=== PATIENT | female | born 1960 | race African-American/Black ===

== ENCOUNTER 2017-06-07 05:34 | Inpatient (IN) | payer MEDICAID, SELFPAY ==
[2017-06-07] VITALS (24 sets, daily range): BP systolic 69–128; BP diastolic 44–59; PULSE 65–82; RESP 16–24; TEMP 36.8–37.6; O2SAT 89–99; BMI 40.8; BMI 38.6; BMI 38.7
--- NOTE | 2017-06-07 05:52 | RAD_ITS ---
STUDY: X-RAY CHEST REASON FOR EXAM: Female, 56 years old. Shortness of breath TECHNIQUE: 1 view COMPARISON: March 20, 2017 FINDINGS: There is mild cardiomegaly. There is no pneumonia or failure. Median sternotomy wires are in place. No pleural effusions. Normal visualized thoracic spine. Normal visualized ribs, clavicles, and shoulders. Plates and screws are seen in the lower cervical spine. There is no demonstrated abnormality of the visualized soft tissue structures of the upper abdomen. RAD/Chest 1 View (Portable) IMPRESSION: Moderate cardiomegaly. No pneumonia. No failure. No pleural effusions. Electronically Signed: Dimitrios Alexis, at 6:30 EST Tel , Service support ,
--- NOTE | 2017-06-07 05:52 | EKG12_ITS ---
Test Reason : SOB Blood Pressure : / mmHG Vent. Rate : 066 BPM Atrial Rate : 066 BPM P-R Int : 164 ms QRS Dur : 090 ms QT Int : 450 ms P-R-T Axes : 043 -38 149 degrees QTc Int : 471 ms Normal sinus rhythm Left axis deviation Marked ST abnormality, possible lateral subendocardial injury Poor R wave progression Abnormal ECG Confirmed by KELVIN ZARAGOZA, JOCELYNE ([id number]), sound editor MADDY STERLING ([id number]) on 06/11/2017 1:22:49 PM Referred By: RAJWINDER Confirmed By:JOCELYNE WARREN MD
[2017-06-07] MEDS: Ipratropium/Albuterol Sulfate 3 ML AMPUL.NEB INHALATION ×4 (06:04→22:55)
[2017-06-07 06:06] LABS: Hematocrit 27.2 % (37-47); Hemoglobin 8.7 g/dl (12.0-15.0); Mean Corpuscular Hgb 31.1 pg (27.0-32.0); Mean Corpuscular Volume 97.1 fL (81-99); Mean Platelet Vol. 9.6 fl (6.2-12.0); Platelet Count 332 K/mm3 (150-450); RBC Distribution Width CV 16.9 % (11.6-14.6)
[2017-06-07 06:09] LABS: Scan Indicated on CBC? Y/N NO
[2017-06-07 06:28] LABS: Anion Gap 10 (5-15); BUN 44 mg/dL (7-18); BUN/Creat Ratio 9.8 RATIO (10-20); Calcium,Total 8.5 mg/dL (8.5-10.1); Chloride 93 mmol/L (98-107); Creatinine, Serum 4.49 mg/dL (0.55-1.02); EST Glomerular Filtration Rate 11 mL/min (>60); Est Glom Filt Rate - Afr Amer 13 mL/min (>60); Estimated Creatinine Clearance 10.43 ml/min; Glucose 335 mg/dL (74-106); Potassium 4.6 mmol/L (3.5-5.1); Sodium Level 132 mmol/L (136-145)
[2017-06-07 07:00] LABS: Lactic Acid 1.6 mmol/L (0.4-2.0)
--- NOTE | 2017-06-07 07:21 | ED.VISSUMM ---
- ER Visit Summary Date of Service: 06/07/17 Chief Complaint: Shortness of breath History of Present Illness: The patient is a 56 F with multiple medical problems including history of coronary artery disease and CABG, COPD, end-stage renal disease on hemodialysis, diabetes, hypertension, hyperlipidemia. She states that she has felt short of breath since yesterday. She has had a URI-like illness for the past week with congestion and rhinorrhea and cough. She denies any sputum. She denies any fevers. She began to feel more short of breath yesterday. She reports increased wheezing. She is currently on antibiotics but is not currently on steroids. She missed dialysis on Sunday but did go the next day, yesterday. She will be due again today. She does note some weight gain and some mild edema. She denies any vomiting or diarrhea. Physical Examination: Initial blood pressure 69/48 afebrile heart rate 67 respiratory rate 24 pulse ox is 98% on nasal cannula Moist mucous membranes Heart is regular rate and rhythm Patient has diminished air exchange but I do not appreciate rales or wheezing she is not in distress Extremities are nontender trace edema Alert Test Results: EKG shows sinus rhythm at rate of 66 there are T-wave inversions in [address] depression. This is more pronounced than prior EKG. Laboratory studies notable for white blood cell count 15.0 and hemoglobin 8.7. Lactic acid normal. Troponin elevated at 0.36. Although she is on dialysis previously her troponin was negative. Creatinine is 4.49 and BUN 44 consistent with her history of end-stage renal disease. Chest x-ray shows cardiomegaly but no acute process no focal infiltrate no effusion. Emergency Department Course and Treatment: She was given albuterol Atrovent aerosols and placed on nasal cannula. Her blood pressure has improved. On most recent reevaluation her mean arterial pressure is greater than 65. Given that her chest x-ray does not show any overt heart failure and IV fluid boluses been ordered. Given her report of URI-like illness cough and wheezing I do believe there is a component of COPD exacerbation. She was given IV Solu-Medrol. She will need admitted. Treatment Plan: [] Disposition: Admit Impression: COPD exacerbation End-stage renal disease Indeterminate troponin This note was generated with Meraki dictation software. It may contain incorrect words, spelling, and punctuation that were not noted in review of the chart prior to signing ED Disposition - Plan for ED Patient: Chief Complaint: Shortness of Breath Referrals: Brayden King Chi, MD [Primary Care Provider] -
--- NOTE | 2017-06-07 07:26 | ED.DCSUM_ITS ---
- ER Visit Summary Date of Service: 06/07/17 Chief Complaint: Shortness of breath History of Present Illness: The patient is a 56 F with multiple medical problems including history of coronary artery disease and CABG, COPD, end-stage renal disease on hemodialysis, diabetes, hypertension, hyperlipidemia. She states that she has felt short of breath since yesterday. She has had a URI- like illness for the past week with congestion and rhinorrhea and cough. She denies any sputum. She denies any fevers. She began to feel more short of breath yesterday. She reports increased wheezing. She is currently on antibiotics but is not currently on steroids. She missed dialysis on Sunday but did go the next day, yesterday. She will be due again today. She does note some weight gain and some mild edema. She denies any vomiting or diarrhea. Physical Examination: Initial blood pressure 69/48 afebrile heart rate 67 respiratory rate 24 pulse ox is 98% on nasal cannula Moist mucous membranes Heart is regular rate and rhythm Patient has diminished air exchange but I do not appreciate rales or wheezing she is not in distress Extremities are nontender trace edema Alert Test Results: EKG shows sinus rhythm at rate of 66 there are T-wave inversions in [address] depression. This is more pronounced than prior EKG. Laboratory studies notable for white blood cell count 15.0 and hemoglobin 8.7. Lactic acid normal. Troponin elevated at 0.36. Although she is on dialysis previously her troponin was negative. Creatinine is 4.49 and BUN 44 consistent with her history of end-stage renal disease. Chest x-ray shows cardiomegaly but no acute process no focal infiltrate no effusion. Emergency Department Course and Treatment: She was given albuterol Atrovent aerosols and placed on nasal cannula. Her blood pressure has improved. On most recent reevaluation her mean arterial pressure is greater than 65. Given that her chest x-ray does not show any overt heart failure and IV fluid boluses been ordered. Given her report of URI-like illness cough and wheezing I do believe there is a component of COPD exacerbation. She was given IV Solu- Medrol. She will need admitted. Treatment Plan: [] Disposition: Admit Impression: COPD exacerbation End-stage renal disease Indeterminate troponin This note was generated with Kloud[employer] dictation software. It may contain incorrect words, spelling, and punctuation that were not noted in review of the chart prior to signing ED Disposition - Plan for ED Patient: Chief Complaint: Shortness of Breath Referrals: Brayden King Chi, MD [Primary Care Provider] -
[2017-06-07] MEDS: MethylPREDNISolone 125 MG/2 ML Vial IV (07:28)
[2017-06-07] MEDS: Citalopram 20 MG Tablet PO (10:47)
[2017-06-07] MEDS: Carvedilol 25 MG Tablet PO ×2 (10:47→21:52)
[2017-06-07] MEDS: Aspirin 81 MG TAB.CHEW PO (10:47)
[2017-06-07] MEDS: Calcium Acetate 667 MG Capsule PO ×2 (10:47→17:22)
[2017-06-07] MEDS: Famotidine 20 MG Tablet PO (10:47)
[2017-06-07] MEDS: guaiFENesin 600 MG Tablet PO ×2 (10:47→21:52)
[2017-06-07] MEDS: Calcitriol 0.25 MCG Capsule 0.5 MCG PO (10:48)
[2017-06-07] MEDS: Pyridoxine HCl 100 MG Tablet PO (10:48)
[2017-06-07] MEDS: Heparin Injection 5,000 UNITS/ML Syringe 5000 UNITS SC (10:48)
[2017-06-07] MEDS: Ranolazine 500 MG Tablet PO ×2 (10:48→21:52)
[2017-06-07] MEDS: Clopidogrel Bisulfate 75 MG Tablet PO (10:48)
--- NOTE | 2017-06-07 10:51 | CON.PCM_ITS ---
Problem List (1) COPD (chronic obstructive pulmonary disease) Status: Chronic Qualifiers: COPD type: COPD with acute exacerbation Qualified Code(s): J44.1 - Chronic obstructive pulmonary disease with (acute) exacerbation (2) History of coronary artery bypass graft Status: Resolved (3) AV fistula Status: Chronic (4) Morbid obesity Status: Chronic (5) Diabetes mellitus type 2 in obese Status: Chronic (6) Anemia in chronic renal disease Status: Chronic (7) End-stage renal disease on hemodialysis Status: Chronic (8) Diastolic congestive heart failure Status: Chronic (9) History of coronary artery bypass graft x 3 Status: Chronic (10) Coronary artery disease Status: Chronic Comment: CT Surgery: 06/29/2014: [facility]: KINCAID to the LAD; SVG to the LCx system; SVG to the RCA system (11) Hypertension Status: Chronic (12) HLD (hyperlipidemia) Status: Chronic (13) CLAUDIO (obstructive sleep apnea) Status: Chronic (14) Secondary hyperparathyroidism of renal origin Status: Chronic (15) Glaucoma Status: Chronic Reason for Consult Date of Consultation: 06/07/17 Reason for Consultation: COPD History of Present Illness: The patient is a 56 year old F with a complicated past medical history who presented to the ED on 06/07/17 complaints of shortness of breath since yesterday. About a week ago, patient developed upper respiratory symptoms with cough, congestion, rhinorrhea, and wheezing. She went to her primary care physician and was placed on an antibiotic and steroid taper with improvement in her symptoms. Patient also endorses increased lower extremity edema and mild increase in weight. She denied any sputum production, hemoptysis, chest pain, dizziness, or syncope. She endorses chills and wheezing intermittently over the last few days. Patient reports she has been on HD since January 2017 with a schedule. She missed her treatment on Sunday secondary to illness/ weakness but went on Sunday. She is due for another treatment today. Initial vital signs showed blood pressure of 69/48, pulse 67, RR 24, afebrile at 98.8?F, and hypoxic at 89% on room air. The patient was placed on 3 L of oxygen with saturation improving to 98%. EKG showed sinus rhythm with a rate of 66 bpm, T-wave inversion and ST depression that appeared more pronounced than prior comparison. Troponin elevated at 0.62. Denies current chest discomfort. Her chest x-ray showed moderate cardiomegaly, no evidence of pneumonia or heart failure. No pleural effusions were present. Blood work showed leukocytosis of 15,000, stable hemoglobin of 8.7. Chemistry remarkable for sodium of 132 and chloride of 93, BUN was 44 and creatinine 4.49. Glucose was elevated at 335. Lactate normal. Patient was given aerosols and IV fluid bolus for hypotension. Her blood pressure improved. She was also given IV Solu -Medrol and admitted to the progressive care unit for further evaluation and management of presumed COPD exacerbation. Respiratory panel is pending. Patient has been weaned to 1-2 L per nasal cannula and reports significant improvement in her overall breathing and dyspnea. Patient is a former smoker with a 10-pk-year history and quit in 2014. Patient previously followed with Dr. Partida for her COPD and sleep apnea, but has not seen him in a few years. She previously wore CPAP but quit using it about a year ago for no good reason. She was having leaking issues previously but was switched to a nasal mask and reported improvement in her symptoms. Patient denies any previous TB or asbestos exposures. She has never required home oxygen supplementation. Her baseline home inhaler regimen includes as needed albuterol nebulizers and MDI when she is out of the house. She uses the nebulizers routinely when she has an acute illness, otherwise does not utilize. She is not on any other inhalers for her COPD. The patient follows with Dr. Huang for her cardiac issues, she believes her last cardiac catheterization was in 2014. She seems to be a poor historian. Past Medical History Past Medical History (Chronic Problems): Chronic Problems (Last Reviewed 05/14/17 @ 14:02 by Carmen Mckoy) angioplasty of arteriovenous fistula (Chronic ~01/2017) Encounter for long-term (current) use of other medications (Chronic) Abnormal stress test (Chronic) AV fistula (Chronic) Morbid obesity (Chronic) Diabetes mellitus type 2 in obese (Chronic) Anemia in chronic renal disease (Chronic) End-stage renal disease on hemodialysis (Chronic) Diastolic congestive heart failure (Chronic) History of coronary artery bypass graft x 3 (Chronic) Coronary artery disease (Chronic) CT Surgery: 06/29/2014: [facility]: KINCAID to the LAD; SVG to the LCx system; SVG to the RCA system Hypertension (Chronic) HLD (hyperlipidemia) (Chronic) COPD (chronic obstructive pulmonary disease) (Chronic) CLAUDIO (obstructive sleep apnea) (Chronic) Hypokalemia (Chronic) Secondary hyperparathyroidism of renal origin (Chronic) Glaucoma (Chronic) Allergies lisinopril Allergy (Verified 06/07/17 05:35) Unknown ranitidine HCl [From Zantac] Allergy (Verified 06/07/17 05:35) Hives azithromycin Adverse Reaction (Verified 06/07/17 05:35) Nausea/Vom/Diarrhea Home Medications: Ambulatory Orders Medication Instructions Recorded Albuterol Aerosols [Ventolin 2.5 mg INHALATION Q4H PRN PRN 06/07/17 Aerosols] Amlodipine [Norvasc] 10 mg PO DAILY 06/07/17 Aspirin [Aspirin, Baby] 81 mg PO DAILY@0800 06/07/17 Atorvastatin Calcium [Lipitor] 80 mg PO QHS 06/07/17 Atropine Sulfate in 0.9% NaCl 1 drop OP BID 06/07/17 [Atropine 0.01%-Ns Eye Drops] Brimonidine Tartrate 0.2% 1 drop RIGHT EYE TID 06/07/17 [Brimonidine 0.2% 5Ml Bottle] Calcitriol [Rocaltrol] 0.5 mcg PO DAILY 06/07/17 Calcium Acetate 667 mg PO TIDCM 06/07/17 Carvedilol [Coreg] 25 mg PO BID 06/07/17 Citalopram Hydrobromide [Celexa] 20 mg PO DAILY 06/07/17 Clopidogrel Bisulfate [Plavix] 75 mg PO DAILY 06/07/17 Ergocalciferol [Vitamin D] 50,000 unit PO QWEEK 06/07/17 Famotidine [Pepcid] 40 mg PO DAILY 06/07/17 Furosemide [Lasix] 80 mg PO DAILY 06/07/17 Gabapentin [Neurontin] 300 mg PO QHS 06/07/17 Insulin Glargine,Hum.rec.anlog 52 unit SQ DAILY 06/07/17 [Toujohn Solostar] Isosorbide Mononitrate [Isosorbide 60 mg PO BID 06/07/17 Mononitrate ER] Losartan Potassium [Cozaar] 50 mg PO DAILY 06/07/17 Pyridoxine HCl (Vitamin B6) [B-6] 100 mg PO DAILY 06/07/17 Ranolazine [Ranexa] 500 mg PO BID 06/07/17 Sennosides [Senna] 8.6 mg PO QHS PRN 06/07/17 Timolol Maleate [Timoptic-XE 0.5%] 1 drop RIGHT EYE TID 06/07/17 Vitamin B Complex/Folic Acid 0.4 mg PO DAILY 06/07/17 [B-Complex Tablet] Surgical History: angioplasty, cataract, coronary bypass surgery - x3v, hysterectomy, - - AVF placement, back surgery AGRICULTURAL ENGINEER History: No pertinent AGRICULTURAL ENGINEER history Lives: With Family Smoking Status: Former smoker Alcohol: None Drugs: None - *Family History Paternal History Items: Cancer - prostate, Heart Disease, Hypertension Sibling History Items: Diabetes Maternal History Items: Hypertension Review of Systems Constitutional: Reports: Chills, Weakness, Weight Change - mild increase, Fatigue. Denies: Anorexia, Fever, Night Sweats, Malaise Eyes: Reports: - - blind left eye. Denies: Vision Change HEENT: Reports: Post Nasal Drip. Denies: Difficulty Swallowing, Dysphasia, Head Aches, Nasal Congestion, Sinus Congestion, Sinus Drainage, Sore Throat Cardiovascular: Reports: Edema - mild increase LE, Orthopnea. Denies: Chest Pain, Chest Pressure, Chest Tightness, Light Headedness, Palpitations, Paroxysmal Noc. Dyspnea, Syncope Respiratory: Reports: Cough, Shortness of breath upon exertion, Wheezing. Denies: Hemoptysis, Sputum production Gastrointestinal: Reports: Nausea. Denies: Abdominal Pain, Constipation, Diarrhea, Dyspepsia, Hematemesis, Hematochezia, Melena, Vomiting Genitourinary: Denies: Dysuria, Hematuria, Nocturia, Retention Gynecological: Denies: Breast symptoms Musculoskeletal: Reports: Back Pain - chronic Skin: Reports: - - intact fistula LFA. Denies: Rash, Wounds Neurological: Reports: - - chronic LE neuropathy. Denies: Balance problems, Change in Speech, Confusion, Difficulty swallowing, Focal weakness, Tremor, Seizures Psychiatric: Reports: Depression. Denies: Anxiety, Suicidal Ideations Endocrine: Denies: Change in Body Habitus, Polydipsia, Polyuria Hematologic/ Lymphatic: Reports: Anemia, Easy Bruising. Denies: Adenopathy, Easy Bleeding, Hx of blood clot Subjective: Patient was seen and examined. Reports she is very fatigued, did not get any sleep last night secondary to being in the emergency room. She feels very weak. Endorses dyspnea on exertion, none at rest. She has a nonproductive cough but reports overall improvement in her breathing. Objective: Clinical Impression(s) from Imaging Studies Chest X-Ray 06/07/17 05:52 IMPRESSION: Moderate cardiomegaly. No pneumonia. No failure. No pleural effusions. Electronically Signed: Dimitrios LinareshectorYury, at 6:30 EST Tel , Service support , - Physical Exam General: Alert, Oriented x3, Cooperative, No apparent distress, Well developed, Well nourished, - - fatigued HEENT: Atraumatic, PERRLA, Normocephalic Oral: Moist Mucosa, No Gingival or Mucosal Lesions/ Ulcerations Neck: Supple, No JVD, No Nodes, Trachea Midline Lungs: Clear to auscultation, No rhonchi, No wheeze, No rales, Diminished Cardiovascular: Regular rate, Regular Rhythm, Normal S1, Normal S2, No murmurs, No rub noted, No Gallop Abdomen: Bowel Sounds Present, Soft, Non Tender, Non-Distended, Obese Extremities: No clubbing, No cyanosis, No edema Skin: No rashes, No breakdown, - - AV fistula L forearm, C/D/I Musculoskeletal: No Tenderness to Palpation of Joints or Extremities Lymphatic: No Cervical, Supraclavicular, or Inguinal Adenopathy Neurological: Cranial nerves II-XII grossly intact, Neuro grossly intact, Motor Exam 5/5 strength throughout Psych/Mental Status: Alert and oriented to time, place, person, mood and affect Vital Signs Temp Pulse Resp BP Pulse Ox 98.9 F 66 18 109/57 L 99 06/07/17 09:21 06/07/17 09:52 06/07/17 09:21 06/07/17 09:21 06/07/17 09:21 Oxygen Flow Rate 2 Oxygen Delivery Method Nasal Cannula Weight: 204 lb 9.423 oz Body Mass Index (BMI) 38.6 Laboratory Tests Past 24 Hrs 06/07/17 09:25 Troponin I 0.62 H* Assessment/Plan RECOMMENDATIONS 1. Wean oxygen supplementation to keep saturations 88-92%. 2. Encourage incentive spirometer 3. Increase activity as tolerated 4. Continue aerosols scheduled and PRN 5. Continue steroids, transition to oral tomorrow 6. Ambulatory pulse oximetry prior to discharge 7. Patient has pulmonary visit scheduled for 06/12/[address] Urbina IMPRESSIONS 1. Self-reported COPD with probable exacerbation Likely secondary to recent upper respiratory infection. Respiratory panel was negative. Chest x-ray shows cardiomegaly, no acute pulmonary process. Denies any sputum production, fever or night sweats. Intermittent shaking chills x2 days. Leukocytosis on admit, but patient has been on antibiotics and steroid burst as outpatient. Maintaining appropriate saturations on 2 L of oxygen supplementation. Continue with IV steroids, likely okay to transition to oral tomorrow. Continue bronchodilators. Encourage incentive spirometer, increase activity as tolerated. Wean oxygen supplementation to keep saturations 88-92%. Patient should have ambulatory pulse oximetry prior to discharge. Patient initially supposed to be seen in March for hospital follow-up in the pulmonary clinic, however canceled this appointment. She now has an appointment on June [address] Urbina. 2. Acute hypoxic respiratory insufficiency Unclear etiology. Ischemia vs recent URI- infectious vs viral. Respiratory panel negative. No sputum production. No prior oxygen requirements at home but pulse oximetry 89% on room air with significant dyspnea. Patient had recent outpatient antibiotics and steroids with subjective improvement. Some leukocytosis, lactate normal and no fevers. 3. Abnormal troponin/EKG changes Unclear etiology. Initial troponin 0.36, 2nd 0.62. Patient denied chest discomfort to me, however hospitalist notes some intermittent chest discomfort over the last few days. Patient follows w/ Dr. Huang, he is being consulted. She was last seen on 05/14/17 and was doing well at that time. 4. Hypertension/CLAUDIO/CAD/history of CHF/end-stage renal disease on dialysis/ diabetes mellitus/morbid obesity Complicates care, management, recovery, and prognosis. Patient can follow up in pulmonary clinic for management of her CLAUDIO. Insulin regimen may need adjusted secondary to steroid administration. Dr. Rollins is consulted/following the patient for kidney disease. Thank you for the opportunity to participate in this patient's care, please do not hesitate to contact us with any further questions or concerns. This note was generated with [employer]enga777ation software. It may contain incorrect words, spelling, and punctuation that were not noted in checking the note before signing.
[2017-06-07] MEDS: Atropine Sulfate 1% 2 ml Bottle 1 DRP PO ×2 (10:52→21:52)
--- NOTE | 2017-06-07 11:16 | CASEMGMT ---
Face to Face with patient for initial transition planning/care coordination assessment. RN JACKSON introduced self and role at [facility], pt voices understanding and consents to assessment at this time. Pt sitting up in bed in no distress at this time. Pt A/O x4 at this time and answers all questions appropriately at this time. Care providers, pharmacy, and demographics verified. See attached link. Pt voices no further concerns/needs at this time. Advised pt to ask for CM if any further questions/concerns/needs arise, voices understanding. CM to follow for any further discharge planning/needs. PLAN: [place] [facility]
--- NOTE | 2017-06-07 11:42 | PCM.HP.STD ---
<Bianka Hobbs - Last Filed: 06/07/17 12:32> Problem List (1) angioplasty of arteriovenous fistula Status: Chronic (2) Arteriovenous fistula stenosis Status: Resolved (3) History of back surgery Status: Resolved (4) AVF placement Status: Resolved (5) History of hysterectomy Status: Resolved (6) History of cataract surgery Status: Resolved (7) History of coronary artery bypass graft Status: Resolved (8) Encounter for long-term (current) use of other medications Status: Chronic (9) Abnormal stress test Status: Chronic (10) AV fistula Status: Chronic (11) Acute respiratory failure with hypoxia Status: Acute (12) COPD with acute exacerbation Status: Acute (13) Morbid obesity Status: Chronic (14) Diabetes mellitus type 2 in obese Status: Chronic (15) Anemia in chronic renal disease Status: Chronic (16) End-stage renal disease on hemodialysis Status: Chronic (17) Acute respiratory failure with hypoxemia Status: Acute (18) Diastolic congestive heart failure Status: Chronic (19) Non-ST elevation [place] (NSTEMI) Status: Resolved (20) History of coronary artery bypass graft x 3 Status: Chronic (21) Coronary artery disease Status: Chronic Comment: CT Surgery: 06/29/2014: [facility]: KINCAID to the LAD; SVG to the LCx system; SVG to the RCA system (22) Hypertension Status: Chronic (23) HLD (hyperlipidemia) Status: Chronic (24) COPD (chronic obstructive pulmonary disease) Status: Chronic (25) CLAUDIO (obstructive sleep apnea) Status: Chronic (26) Hypokalemia Status: Chronic (27) Abnormal EKG Status: Acute (28) Secondary hyperparathyroidism of renal origin Status: Chronic (29) Glaucoma Status: Chronic History of Present Illness Date of Admission: 06/07/17 Chief Complaint: Shortness of breath The patient is a 56 year old F who presents to the emergency room with shortness of breath ?1 day. Patient states she had a recent upper respiratory infection in which she was placed on antibiotics and prednisone and her symptoms improved. Patient states she is on Sunday, , Sunday dialysis schedule for end-stage renal disease. She missed her Sunday dialysis and completed dialysis yesterday. She states she experienced chest pain during her dialysis treatment. She states she has had similar chest pain intermittently in the past. She denies pain radiation, associated shortness of breath, dizziness. Chest pain resolved quickly without intervention. Patient states her shortness of breath is increased with exertion. She denies significant cough or sputum production. States she had an episode of chills overnight but denies subjective fever. Her past medical history includes COPD, obstructive sleep apnea, hyperlipidemia, hypertension, coronary artery disease status post coronary artery bypass graft ?3, chronic diastolic CHF, end-stage renal disease on hemodialysis, anemia of chronic disease, type 2 diabetes mellitus, morbid obesity. Past Medical History Past Medical History (Chronic Problems): Chronic Problems (Last Reviewed 05/14/17 @ 14:02 by Carmen Mckoy) angioplasty of arteriovenous fistula (Chronic ~01/2017) Encounter for long-term (current) use of other medications (Chronic) Abnormal stress test (Chronic) AV fistula (Chronic) Morbid obesity (Chronic) Diabetes mellitus type 2 in obese (Chronic) Anemia in chronic renal disease (Chronic) End-stage renal disease on hemodialysis (Chronic) Diastolic congestive heart failure (Chronic) History of coronary artery bypass graft x 3 (Chronic) Coronary artery disease (Chronic) CT Surgery: 06/29/2014: [facility]: KINCAID to the LAD; SVG to the LCx system; SVG to the RCA system Hypertension (Chronic) HLD (hyperlipidemia) (Chronic) COPD (chronic obstructive pulmonary disease) (Chronic) CLAUDIO (obstructive sleep apnea) (Chronic) Hypokalemia (Chronic) Secondary hyperparathyroidism of renal origin (Chronic) Glaucoma (Chronic) Allergies lisinopril Allergy (Verified 06/07/17 05:35) Unknown ranitidine HCl [From Zantac] Allergy (Verified 06/07/17 05:35) Hives azithromycin Adverse Reaction (Verified 06/07/17 05:35) Nausea/Vom/Diarrhea Home Medications: Ambulatory Orders Medication Instructions Recorded Albuterol Aerosols [Ventolin 2.5 mg INHALATION Q4H PRN PRN 06/07/17 Aerosols] Amlodipine [Norvasc] 10 mg PO DAILY 06/07/17 Aspirin [Aspirin, Baby] 81 mg PO DAILY@0800 06/07/17 Atorvastatin Calcium [Lipitor] 80 mg PO QHS 06/07/17 Atropine Sulfate in 0.9% NaCl 1 drop OP BID 06/07/17 [Atropine 0.01%-Ns Eye Drops] Brimonidine Tartrate 0.2% 1 drop RIGHT EYE TID 06/07/17 [Brimonidine 0.2% 5Ml Bottle] Calcitriol [Rocaltrol] 0.5 mcg PO DAILY 06/07/17 Calcium Acetate 667 mg PO TIDCM 06/07/17 Carvedilol [Coreg] 25 mg PO BID 06/07/17 Citalopram Hydrobromide [Celexa] 20 mg PO DAILY 06/07/17 Clopidogrel Bisulfate [Plavix] 75 mg PO DAILY 06/07/17 Ergocalciferol [Vitamin D] 50,000 unit PO QWEEK 06/07/17 Famotidine [Pepcid] 40 mg PO DAILY 06/07/17 Furosemide [Lasix] 80 mg PO DAILY 06/07/17 Gabapentin [Neurontin] 300 mg PO QHS 06/07/17 Insulin Glargine,Hum.rec.anlog 52 unit SQ DAILY 06/07/17 [Toujeo Solostar] Isosorbide Mononitrate [Isosorbide 60 mg PO BID 06/07/17 Mononitrate ER] Losartan Potassium [Cozaar] 50 mg PO DAILY 06/07/17 Pyridoxine HCl (Vitamin B6) [B-6] 100 mg PO DAILY 06/07/17 Ranolazine [Ranexa] 500 mg PO BID 06/07/17 Sennosides [Senna] 8.6 mg PO QHS PRN 06/07/17 Timolol Maleate [Timoptic-XE 0.5%] 1 drop RIGHT EYE TID 06/07/17 Vitamin B Complex/Folic Acid 0.4 mg PO DAILY 06/07/17 [B-Complex Tablet] Surgical History: angioplasty, cataract, coronary bypass surgery - x3v, hysterectomy, - - AVF placement, back surgery OPERATIONS AGENT History: No pertinent OPERATIONS AGENT history Lives: With Family Smoking Status: Former smoker Alcohol: None Drugs: None - *Family History Paternal History Items: Cancer - prostate, Heart Disease, Hypertension Sibling History Items: Diabetes Maternal History Items: Hypertension Review of Systems Constitutional: Reports: Chills. Denies: Fever, Fatigue HEENT: Denies: Head Aches, Sinus Congestion, Sinus Drainage Cardiovascular: Reports: Chest Pain. Denies: Light Headedness, Palpitations, Syncope Respiratory: Reports: Shortness of Breath, Wheezing. Denies: Cough, Sputum production Gastrointestinal: Denies: Abdominal Pain, Nausea, Vomiting Genitourinary: Denies: Dysuria Musculoskeletal: Denies: Joint Pain, Joint Tenderness Skin: Denies: Rash, Wounds Neurological: Denies: Numbness, Tingling, Focal weakness Psychiatric: Denies: Anxiety, Depression, Homicidal Ideations, Suicidal Ideations Hematologic/ Lymphatic: Denies: Easy Bruising, Easy Bleeding VTE Information - Inpt Only VTE Present on Admission: No VTE Mechan Device Prophylaxis: None VTE Pharm Prophylaxis ordered?: Yes Patient Problems: Active and Suspected Problems (Last Reviewed 05/14/17 @ 14:02 by Carmen Mckoy) Chest pain (Acute) - Physical Exam General: Alert, Oriented x3, Cooperative, No apparent distress HEENT: Atraumatic, PERRLA, EOMI, Normocephalic Neck: Supple, No JVD, Negative Carotid Bruits Lungs: Clear to auscultation, Diminished Cardiovascular: Regular rate, Regular Rhythm, Normal S1, Normal S2, No murmurs Abdomen: Bowel Sounds Present, Soft, Non Tender, Non-Distended, Obese Extremities: No clubbing, No cyanosis, No edema, Capillary Refill Less than 3 Seconds Skin: No rashes, No breakdown, - - Left FA AVF Musculoskeletal: No Tenderness to Palpation of Joints or Extremities Neurological: Cranial nerves II-XII grossly intact, Neuro grossly intact Psych/Mental Status: Normal Affect, Appropriate Vital Signs Temp Pulse Resp BP Pulse Ox 98.9 F 67 18 109/57 L 99 06/07/17 09:21 06/07/17 11:01 06/07/17 09:21 06/07/17 09:21 06/07/17 09:21 Oxygen Flow Rate 2 Oxygen Delivery Method Nasal Cannula Weight: 92.8 kg Body Mass Index (BMI) 38.6 Laboratory Tests Past 24 Hrs 06/07/17 09:25 Troponin I 0.62 H* Assessment/Plan Active and Suspected Problems (Last Reviewed 05/14/17 @ 14:02 by Carmen Mckoy) Chest pain (Acute) 1. Acute COPD exacerbation with acute hypoxia-mild. Patient complains of shortness of breath. No wheezing appreciated. Continue IV Solu-Medrol with plans of transitioning to oral prednisone tomorrow. Albuterol DuoNeb aerosols. Respiratory panel negative. Afebrile. Continue supplemental oxygen to maintain O2 at or above 90%. 2. Indeterminate troponin with EKG changes-troponin 0.36, 0.62. EKG with T-wave inversions and ST depression. This is more pronounced compared to prior EKG. Patient denies current chest pain although states she has had intermittent chest pain prior to admission. Cycle enzymes. Cardiology consulted. Patient follows with Dr. Huang. Patient had cardiac catheterization January 2016 which showed severe two-vessel coronary artery disease, nonobstructive disease of the distal right coronary artery. Continued medical management was recommended at that time. Repeat echocardiogram pending. Cardiology suspecting demand ischemia secondary to acute COPD exacerbation/hypoxia. Continue aspirin, Plavix, statin, nitrates, beta-blockers, ranexa. No plans for cardiac catheterization at this time given patient had cardiac catheterization approximately 7 months ago. 3. Coronary artery disease status post CABG ?3-continue aspirin, statin, Plavix, beta-ivy. 4. End-stage renal disease-on hemodialysis. Has left forearm AV fistula. ,,SUN schedule. Follows with Dr. Rollins who was consulted. Continue dialysis regimen. Monitor BMP. 5. Obstructive sleep apnea- previously wore CPAP which she has not been compliant with. She previously followed with Dr. Partida. Plans on establishing with Dr. Urbina in which she has an appointment 06/12/2017. Recommend continued use of CPAP. 5. Chronic diastolic CHF-no signs of acute exacerbation. Chest x-ray without signs of CHF. Lasix regimen on hold given hypotension. Echocardiogram 2015 showed an estimated ejection fraction of 65%, stage III diastolic dysfunction, mild to moderate tricuspid insufficiency. Repeat echocardiogram pending. 6. Type 2 diabetes [id number]-Vxds-Fveoa before meals at bedtime. Sliding scale insulin and home Levemir regimen. Check hemoglobin A1c. 7. Hyperlipidemia-continue statin. 8. Hypertension-blood pressure hypotensive on admission. Home antihypertensives on hold. Continue to monitor. 9. AOCD-stable, monitor CBC. 10. Morbid obesity-encouraged diet and lifestyle modifications. Nutrition/dietitian consult. DVT prophylaxis-heparin subcu. This patient was seen by MAU Rose under the supervision of Dr. Estrella. <Dixon Estrella - Last Filed: 06/07/17 15:05> Problem List (1) Chest pain Status: Acute (2) COPD with acute exacerbation Status: Acute (3) Morbid obesity Status: Chronic (4) Diabetes mellitus type 2 in obese Status: Chronic (5) Anemia in chronic renal disease Status: Chronic (6) End-stage renal disease on hemodialysis Status: Chronic (7) Diastolic congestive heart failure Status: Chronic (8) Coronary artery disease Status: Chronic Comment: CT Surgery: 06/29/2014: [facility]: KINCAID to the LAD; SVG to the LCx system; SVG to the RCA system (9) Hypertension Status: Chronic (10) HLD (hyperlipidemia) Status: Chronic (11) COPD (chronic obstructive pulmonary disease) Status: Chronic Qualifiers: COPD type: COPD with acute exacerbation Qualified Code(s): J44.1 - Chronic obstructive pulmonary disease with (acute) exacerbation (12) CLAUDIO (obstructive sleep apnea) Status: Chronic History of Present Illness The patient is a 56 year old F Aarti with a one-day history of shortness of breath. Patient yesterday underwent dialysis and had midsternal chest pain. Patient was only can have a short run being there was none to dialysis today that had to be adjusted due to another event. Patient continued to have the chest pressure that persisted. Patient was to be woken up by this morning and for dialysis but she still felt very ill and presented to the emergency room. In the emergency room patient was noted to be hypotensive with a systolic in the 60s and, despite being end-stage renal disease, patient was put on IV fluids. There is no evidence of any failure on her chest x-ray. Patient's blood pressure did improve into the 80s and remained stable. Concern was for exacerbation of COPD, so the patient received aerosols as well as steroids. Currently, the patient is feeling better she still does have some chest pressure. Patient did have some troponins that were 0.3 and then went up to 0.6, despite being end-stage renal disease, patient's previous troponins have been negative. [] Past Medical History Allergies lisinopril Allergy (Verified 06/07/17 05:35) Unknown ranitidine HCl [From Zantac] Allergy (Verified 06/07/17 05:35) Hives azithromycin Adverse Reaction (Verified 06/07/17 05:35) Nausea/Vom/Diarrhea Surgical History: angioplasty, cataract, coronary bypass surgery, hysterectomy, - Lives: With Family Smoking Status: Former smoker Alcohol: None Drugs: None - *Family History Paternal History Items: Cancer, Heart Disease, Hypertension Sibling History Items: Diabetes Maternal History Items: Hypertension Review of Systems Constitutional: Reports: Chills. Denies: Fever, Fatigue Eyes: Denies: Blurred vision, Double vision HEENT: Denies: Head Aches, Sinus Congestion, Sinus Drainage Cardiovascular: Reports: Chest Pain. Denies: Light Headedness, Palpitations, Syncope Respiratory: Reports: Shortness of Breath, Wheezing. Denies: Cough, Sputum production Gastrointestinal: Denies: Abdominal Pain, Nausea Genitourinary: Denies: Dysuria Musculoskeletal: Denies: Joint Pain, Joint Tenderness Skin: Denies: Rash, Wounds Neurological: Denies: Focal weakness, Numbness, Tingling Psychiatric: Denies: Anxiety, Depression, Homicidal Ideations, Suicidal Ideations Hematologic/ Lymphatic: Denies: Easy Bruising, Easy Bleeding VTE Information - Inpt Only VTE Present on Admission: No VTE Pharm Prophylaxis ordered?: Yes - Physical Exam General: Alert, Cooperative, No apparent distress HEENT: Atraumatic, Normocephalic Neck: No Nodes, Thyroid Normal Size and Texture Lungs: Clear to auscultation, Diminished Cardiovascular: Regular rate, Regular Rhythm, Normal S1, Normal S2, No murmurs Abdomen: Bowel Sounds Present, Soft, Non Tender, Non-Distended, Obese Extremities: No clubbing, No cyanosis, No edema, Capillary Refill Less than 3 Seconds, - - Audible bruit in the left upper extremity Skin: No rashes, No breakdown, - Musculoskeletal: No Tenderness to Palpation of Joints or Extremities Neurological: Cranial nerves II-XII grossly intact, Deep Tendon Reflexes 2+/4 and Symmetrical, Neuro grossly intact Psych/Mental Status: Normal Affect, Appropriate Vital Signs Temp Pulse Resp BP Pulse Ox 37.2 C 67 18 109/57 L 99 06/07/17 09:21 06/07/17 11:01 06/07/17 09:21 06/07/17 09:21 06/07/17 09:21 Oxygen Flow Rate 2 Oxygen Delivery Method Nasal Cannula Weight: 92.8 kg Body Mass Index (BMI) 38.6 Intake and Output for Last 24 Hours 02/13/18 02/14/18 02/15/18 23:59 23:59 23:59 Intake Total 240 / 240 Balance 240 / 240 Microbiology Past 72 Hours 06/07/17 07:30 Respiratory Panel (PCR) - Final Mucosa - Nose Laboratory Tests Past 24 Hrs 06/07/17 06/07/17 09:25 12:10 Troponin I 0.62 H* 0.89 H* POC Glucose 06/07/17 11:59 POC Glucose 375 H Assessment/Plan Patient seen and examined independently. Agree with the above note by the nurse practitioner. 1. Acute exacerbation of COPD: Continue with bronchodilators and steroids. Pulmonary on consultation. 2. Hypotension Probably related with hypovolemia which I did respond probably with IV fluids. Continue to monitor and will eventually reintroduce her antihypertensives as her pressure allows. 3. Elevated cardiac markers Certainly, given the patient is end-stage renal disease, her levels are going to be skewed upwards but previously they had been normal. Patient was having some chest pain and still does to a certain extent. Cardiology is on consult who will be evaluating her prior cath results. Continue with medical management for now. 4. End-stage renal disease Nephrology on consult to facilitate dialysis. 5. DVT prophylaxis with subcu heparin. Code Visit Inpatient E&M: 24558 Init Hosp L3
--- NOTE | 2017-06-07 11:54 | HP.PCM_ITS ---
<Bianka Hobbs - Last Filed: 06/07/17 12:32> Problem List (1) angioplasty of arteriovenous fistula Status: Chronic (2) Arteriovenous fistula stenosis Status: Resolved (3) History of back surgery Status: Resolved (4) AVF placement Status: Resolved (5) History of hysterectomy Status: Resolved (6) History of cataract surgery Status: Resolved (7) History of coronary artery bypass graft Status: Resolved (8) Encounter for long-term (current) use of other medications Status: Chronic (9) Abnormal stress test Status: Chronic (10) AV fistula Status: Chronic (11) Acute respiratory failure with hypoxia Status: Acute (12) COPD with acute exacerbation Status: Acute (13) Morbid obesity Status: Chronic (14) Diabetes mellitus type 2 in obese Status: Chronic (15) Anemia in chronic renal disease Status: Chronic (16) End-stage renal disease on hemodialysis Status: Chronic (17) Acute respiratory failure with hypoxemia Status: Acute (18) Diastolic congestive heart failure Status: Chronic (19) Non-ST elevation OR (NSTEMI) Status: Resolved (20) History of coronary artery bypass graft x 3 Status: Chronic (21) Coronary artery disease Status: Chronic Comment: CT Surgery: 06/29/2014: [facility]: KINCAID to the LAD; SVG to the LCx system; SVG to the RCA system (22) Hypertension Status: Chronic (23) HLD (hyperlipidemia) Status: Chronic (24) COPD (chronic obstructive pulmonary disease) Status: Chronic (25) CLAUDIO (obstructive sleep apnea) Status: Chronic (26) Hypokalemia Status: Chronic (27) Abnormal EKG Status: Acute (28) Secondary hyperparathyroidism of renal origin Status: Chronic (29) Glaucoma Status: Chronic History of Present Illness Date of Admission: 06/07/17 Chief Complaint: Shortness of breath The patient is a 56 year old F who presents to the emergency room with shortness of breath ?1 day. Patient states she had a recent upper respiratory infection in which she was placed on antibiotics and prednisone and her symptoms improved. Patient states she is on Sunday, , Sunday dialysis schedule for end-stage renal disease. She missed her Sunday dialysis and completed dialysis yesterday. She states she experienced chest pain during her dialysis treatment. She states she has had similar chest pain intermittently in the past. She denies pain radiation, associated shortness of breath, dizziness. Chest pain resolved quickly without intervention. Patient states her shortness of breath is increased with exertion. She denies significant cough or sputum production. States she had an episode of chills overnight but denies subjective fever. Her past medical history includes COPD, obstructive sleep apnea, hyperlipidemia, hypertension, coronary artery disease status post coronary artery bypass graft ?3, chronic diastolic CHF, end-stage renal disease on hemodialysis, anemia of chronic disease, type 2 diabetes mellitus, morbid obesity. Past Medical History Past Medical History (Chronic Problems): Chronic Problems (Last Reviewed 05/14/17 @ 14:02 by Carmen Mckoy) angioplasty of arteriovenous fistula (Chronic ~01/2017) Encounter for long-term (current) use of other medications (Chronic) Abnormal stress test (Chronic) AV fistula (Chronic) Morbid obesity (Chronic) Diabetes mellitus type 2 in obese (Chronic) Anemia in chronic renal disease (Chronic) End-stage renal disease on hemodialysis (Chronic) Diastolic congestive heart failure (Chronic) History of coronary artery bypass graft x 3 (Chronic) Coronary artery disease (Chronic) CT Surgery: 06/29/2014: [facility]: KINCAID to the LAD; SVG to the LCx system; SVG to the RCA system Hypertension (Chronic) HLD (hyperlipidemia) (Chronic) COPD (chronic obstructive pulmonary disease) (Chronic) CLAUDIO (obstructive sleep apnea) (Chronic) Hypokalemia (Chronic) Secondary hyperparathyroidism of renal origin (Chronic) Glaucoma (Chronic) Allergies lisinopril Allergy (Verified 06/07/17 05:35) Unknown ranitidine HCl [From Zantac] Allergy (Verified 06/07/17 05:35) Hives azithromycin Adverse Reaction (Verified 06/07/17 05:35) Nausea/Vom/Diarrhea Home Medications: Ambulatory Orders Medication Instructions Recorded Albuterol Aerosols [Ventolin 2.5 mg INHALATION Q4H PRN PRN 06/07/17 Aerosols] Amlodipine [Norvasc] 10 mg PO DAILY 06/07/17 Aspirin [Aspirin, Baby] 81 mg PO DAILY@0800 06/07/17 Atorvastatin Calcium [Lipitor] 80 mg PO QHS 06/07/17 Atropine Sulfate in 0.9% NaCl 1 drop OP BID 06/07/17 [Atropine 0.01%-Ns Eye Drops] Brimonidine Tartrate 0.2% 1 drop RIGHT EYE TID 06/07/17 [Brimonidine 0.2% 5Ml Bottle] Calcitriol [Rocaltrol] 0.5 mcg PO DAILY 06/07/17 Calcium Acetate 667 mg PO TIDCM 06/07/17 Carvedilol [Coreg] 25 mg PO BID 06/07/17 Citalopram Hydrobromide [Celexa] 20 mg PO DAILY 06/07/17 Clopidogrel Bisulfate [Plavix] 75 mg PO DAILY 06/07/17 Ergocalciferol [Vitamin D] 50,000 unit PO QWEEK 06/07/17 Famotidine [Pepcid] 40 mg PO DAILY 06/07/17 Furosemide [Lasix] 80 mg PO DAILY 06/07/17 Gabapentin [Neurontin] 300 mg PO QHS 06/07/17 Insulin Glargine,Hum.rec.anlog 52 unit SQ DAILY 06/07/17 [Toujeo Solostar] Isosorbide Mononitrate [Isosorbide 60 mg PO BID 06/07/17 Mononitrate ER] Losartan Potassium [Cozaar] 50 mg PO DAILY 06/07/17 Pyridoxine HCl (Vitamin B6) [B-6] 100 mg PO DAILY 06/07/17 Ranolazine [Ranexa] 500 mg PO BID 06/07/17 Sennosides [Senna] 8.6 mg PO QHS PRN 06/07/17 Timolol Maleate [Timoptic-XE 0.5%] 1 drop RIGHT EYE TID 06/07/17 Vitamin B Complex/Folic Acid 0.4 mg PO DAILY 06/07/17 [B-Complex Tablet] Surgical History: angioplasty, cataract, coronary bypass surgery - x3v, hysterectomy, - - AVF placement, back surgery 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 Denies: Fever, Fatigue HEENT: Denies: Head Aches, Sinus Congestion, Sinus Drainage Cardiovascular: Reports: Chest Pain. Denies: Light Headedness, Palpitations, Syncope Respiratory: Reports: Shortness of Breath, Wheezing. Denies: Cough, Sputum production Gastrointestinal: Denies: Abdominal Pain, Nausea, Vomiting Genitourinary: Denies: Dysuria Musculoskeletal: Denies: Joint Pain, Joint Tenderness Skin: Denies: Rash, Wounds Neurological: Denies: Numbness, Tingling, Focal weakness Psychiatric: Denies: Anxiety, Depression, Homicidal Ideations, Suicidal Ideations Hematologic/ Lymphatic: Denies: Easy Bruising, Easy Bleeding VTE Information - Inpt Only VTE Present on Admission: No VTE Mechan Device Prophylaxis: None VTE Pharm Prophylaxis ordered?: Yes Patient Problems: Active and Suspected Problems (Last Reviewed 05/14/17 @ 14:02 by Carmen Mckoy) Chest pain (Acute) - Physical Exam General: Alert, Oriented x3, Cooperative, No apparent distress HEENT: Atraumatic, PERRLA, EOMI, Normocephalic Neck: Supple, No JVD, Negative Carotid Bruits Lungs: Clear to auscultation, Diminished Cardiovascular: Regular rate, Regular Rhythm, Normal S1, Normal S2, No murmurs Abdomen: Bowel Sounds Present, Soft, Non Tender, Non-Distended, Obese Extremities: No clubbing, No cyanosis, No edema, Capillary Refill Less than 3 Seconds Skin: No rashes, No breakdown, - - Left FA AVF Musculoskeletal: No Tenderness to Palpation of Joints or Extremities Neurological: Cranial nerves II-XII grossly intact, Neuro grossly intact Psych/Mental Status: Normal Affect, Appropriate Vital Signs Temp Pulse Resp BP Pulse Ox 98.9 F 67 18 109/57 L 99 06/07/17 09:21 06/07/17 11:01 06/07/17 09:21 06/07/17 09:21 06/07/17 09:21 Oxygen Flow Rate 2 Oxygen Delivery Method Nasal Cannula Weight: 92.8 kg Body Mass Index (BMI) 38.6 Laboratory Tests Past 24 Hrs 06/07/17 09:25 Troponin I 0.62 H* Assessment/Plan Active and Suspected Problems (Last Reviewed 05/14/17 @ 14:02 by Carmen Mckoy) Chest pain (Acute) 1. Acute COPD exacerbation with acute hypoxia-mild. Patient complains of shortness of breath. No wheezing appreciated. Continue IV Solu-Medrol with plans of transitioning to oral prednisone tomorrow. Albuterol DuoNeb aerosols. Respiratory panel negative. Afebrile. Continue supplemental oxygen to maintain O2 at or above 90%. 2. Indeterminate troponin with EKG changes-troponin 0.36, 0.62. EKG with T- wave inversions and ST depression. This is more pronounced compared to prior EKG. Patient denies current chest pain although states she has had intermittent chest pain prior to admission. Cycle enzymes. Cardiology consulted. Patient follows with Dr. Huang. Patient had cardiac catheterization January 2016 which showed severe two-vessel coronary artery disease, nonobstructive disease of the distal right coronary artery. Continued medical management was recommended at that time. Repeat echocardiogram pending. Cardiology suspecting demand ischemia secondary to acute COPD exacerbation/ hypoxia. Continue aspirin, Plavix, statin, nitrates, beta-blockers, ranexa. No plans for cardiac catheterization at this time given patient had cardiac catheterization approximately 7 months ago. 3. Coronary artery disease status post CABG ?3-continue aspirin, statin, Plavix , beta-ivy. 4. End-stage renal disease-on hemodialysis. Has left forearm AV fistula. ,, SUN schedule. Follows with Dr. Rollins who was consulted. Continue dialysis regimen. Monitor BMP. 5. Obstructive sleep apnea- previously wore CPAP which she has not been compliant with. She previously followed with Dr. Partida. Plans on establishing with Dr. Urbina in which she has an appointment 06/12/2017. Recommend continued use of CPAP. 5. Chronic diastolic CHF-no signs of acute exacerbation. Chest x-ray without signs of CHF. Lasix regimen on hold given hypotension. Echocardiogram 2015 showed an estimated ejection fraction of 65%, stage III diastolic dysfunction, mild to moderate tricuspid insufficiency. Repeat echocardiogram pending. 6. Type 2 diabetes [id number] before meals at bedtime. Sliding scale insulin and home Levemir regimen. Check hemoglobin A1c. 7. Hyperlipidemia-continue statin. 8. Hypertension-blood pressure hypotensive on admission. Home antihypertensives on hold. Continue to monitor. 9. AOCD-stable, monitor CBC. 10. Morbid obesity-encouraged diet and lifestyle modifications. Nutrition/ dietitian consult. DVT prophylaxis-heparin subcu. This patient was seen by MAU Rose under the supervision of Dr. Estrella. <Dixon Estrella - Last Filed: 06/07/17 15:05> Problem List (1) Chest pain Status: Acute (2) COPD with acute exacerbation Status: Acute (3) Morbid obesity Status: Chronic (4) Diabetes mellitus type 2 in obese Status: Chronic (5) Anemia in chronic renal disease Status: Chronic (6) End-stage renal disease on hemodialysis Status: Chronic (7) Diastolic congestive heart failure Status: Chronic (8) Coronary artery disease Status: Chronic Comment: CT Surgery: 06/29/2014: [facility]: KINCAID to the LAD; SVG to the LCx system; SVG to the RCA system (9) Hypertension Status: Chronic (10) HLD (hyperlipidemia) Status: Chronic (11) COPD (chronic obstructive pulmonary disease) Status: Chronic Qualifiers: COPD type: COPD with acute exacerbation Qualified Code(s): J44.1 - Chronic obstructive pulmonary disease with (acute) exacerbation (12) CLAUDIO (obstructive sleep apnea) Status: Chronic History of Present Illness The patient is a 56 year old F Aarti with a one-day history of shortness of breath. Patient yesterday underwent dialysis and had midsternal chest pain. Patient was only can have a short run being there was none to dialysis today that had to be adjusted due to another event. Patient continued to have the chest pressure that persisted. Patient was to be woken up by this morning and for dialysis but she still felt very ill and presented to the emergency room. In the emergency room patient was noted to be hypotensive with a systolic in the 60s and, despite being end-stage renal disease, patient was put on IV fluids. There is no evidence of any failure on her chest x-ray. Patient's blood pressure did improve into the 80s and remained stable. Concern was for exacerbation of COPD, so the patient received aerosols as well as steroids. Currently, the patient is feeling better she still does have some chest pressure. Patient did have some troponins that were 0.3 and then went up to 0.6 , despite being end-stage renal disease, patient's previous troponins have been negative. [] Past Medical History Allergies lisinopril Allergy (Verified 06/07/17 05:35) Unknown ranitidine HCl [From Zantac] Allergy (Verified 06/07/17 05:35) Hives azithromycin Adverse Reaction (Verified 06/07/17 05:35) Nausea/Vom/Diarrhea Surgical History: angioplasty, cataract, coronary bypass surgery, hysterectomy, - Lives: With Family Smoking Status: Former smoker Alcohol: None Drugs: None - *Family History Paternal History Items: Cancer, Heart Disease, Hypertension Sibling History Items: Diabetes Maternal History Items: Hypertension Review of Systems Constitutional: Reports: Chills. Denies: Fever, Fatigue Eyes: Denies: Blurred vision, Double vision HEENT: Denies: Head Aches, Sinus Congestion, Sinus Drainage Cardiovascular: Reports: Chest Pain. Denies: Light Headedness, Palpitations, Syncope Respiratory: Reports: Shortness of Breath, Wheezing. Denies: Cough, Sputum production Gastrointestinal: Denies: Abdominal Pain, Nausea Genitourinary: Denies: Dysuria Musculoskeletal: Denies: Joint Pain, Joint Tenderness Skin: Denies: Rash, Wounds Neurological: Denies: Focal weakness, Numbness, Tingling Psychiatric: Denies: Anxiety, Depression, Homicidal Ideations, Suicidal Ideations Hematologic/ Lymphatic: Denies: Easy Bruising, Easy Bleeding VTE Information - Inpt Only VTE Present on Admission: No VTE Pharm Prophylaxis ordered?: Yes - Physical Exam General: Alert, Cooperative, No apparent distress HEENT: Atraumatic, Normocephalic Neck: No Nodes, Thyroid Normal Size and Texture Lungs: Clear to auscultation, Diminished Cardiovascular: Regular rate, Regular Rhythm, Normal S1, Normal S2, No murmurs Abdomen: Bowel Sounds Present, Soft, Non Tender, Non-Distended, Obese Extremities: No clubbing, No cyanosis, No edema, Capillary Refill Less than 3 Seconds, - - Audible bruit in the left upper extremity Skin: No rashes, No breakdown, - Musculoskeletal: No Tenderness to Palpation of Joints or Extremities Neurological: Cranial nerves II-XII grossly intact, Deep Tendon Reflexes 2+/4 and Symmetrical, Neuro grossly intact Psych/Mental Status: Normal Affect, Appropriate Vital Signs Temp Pulse Resp BP Pulse Ox 37.2 C 67 18 109/57 L 99 06/07/17 09:21 06/07/17 11:01 06/07/17 09:21 06/07/17 09:21 06/07/17 09:21 Oxygen Flow Rate 2 Oxygen Delivery Method Nasal Cannula Weight: 92.8 kg Body Mass Index (BMI) 38.6 Intake and Output for Last 24 Hours 02/13/18 02/14/18 02/15/18 23:59 23:59 23:59 Intake Total 240 / 240 Balance 240 / 240 Microbiology Past 72 Hours 06/07/17 07:30 Respiratory Panel (PCR) - Final Mucosa - Nose Laboratory Tests Past 24 Hrs 06/07/17 06/07/17 09:25 12:10 Troponin I 0.62 H* 0.89 H* POC Glucose 06/07/17 11:59 POC Glucose 375 H Assessment/Plan Patient seen and examined independently. Agree with the above note by the nurse practitioner. 1. Acute exacerbation of COPD: * Continue with bronchodilators and steroids. Pulmonary on consultation. 2. Hypotension * Probably related with hypovolemia which I did respond probably with IV fluids. Continue to monitor and will eventually reintroduce her antihypertensives as her pressure allows. 3. Elevated cardiac markers * Certainly, given the patient is end-stage renal disease, her levels are going to be skewed upwards but previously they had been normal. Patient was having some chest pain and still does to a certain extent. Cardiology is on consult who will be evaluating her prior cath results. Continue with medical management for now. 4. End-stage renal disease * Nephrology on consult to facilitate dialysis. 5. DVT prophylaxis with subcu heparin. Code Visit Inpatient E&M: [id number] Init Hosp L3
--- NOTE | 2017-06-07 11:56 | PCM.CONS.C ---
Reason for Consult Date of Consultation: 06/07/17 History of Present Illness: The patient is a 56 year old F with past medical history significant for coronary artery disease status post two-vessel CABG, hypertension, end-stage renal disease on dialysis, diabetes mellitus and COPD. Putting to her, she had some cough and runny nose like symptoms for the last couple of days. Yesterday she started having wheezing. [place] short of breath. According to her, she also had an episode of anterior chest pressure. She is unsure about the duration. So unaware of any relieving factors. Per patient, it resolved on its own. She remained chest pain-free overnight and is asymptomatic this morning as well. Shortness of breath has also improved. She however continues to cough. The patient was noted to be hypoxic by EMS. Her O2 sats on room air were noted to be 86%. She was also noted to be hypotensive in the emergency room initially. Past Medical History Allergies/Adverse Reactions: Allergies lisinopril Allergy (Verified 06/07/17 05:35) Unknown ranitidine HCl [From Zantac] Allergy (Verified 06/07/17 05:35) Hives azithromycin Adverse Reaction (Verified 06/07/17 05:35) Nausea/Vom/Diarrhea Home Medications: Ambulatory Orders Medication Instructions Recorded Albuterol Aerosols [Ventolin 2.5 mg INHALATION Q4H PRN PRN 06/07/17 Aerosols] Amlodipine [Norvasc] 10 mg PO DAILY 06/07/17 Aspirin [Aspirin, Baby] 81 mg PO DAILY@0800 06/07/17 Atorvastatin Calcium [Lipitor] 80 mg PO QHS 06/07/17 Atropine Sulfate in 0.9% NaCl 1 drop OP BID 06/07/17 [Atropine 0.01%-Ns Eye Drops] Brimonidine Tartrate 0.2% 1 drop RIGHT EYE TID 06/07/17 [Brimonidine 0.2% 5Ml Bottle] Calcitriol [Rocaltrol] 0.5 mcg PO DAILY 06/07/17 Calcium Acetate 667 mg PO TIDCM 06/07/17 Carvedilol [Coreg] 25 mg PO BID 06/07/17 Citalopram Hydrobromide [Celexa] 20 mg PO DAILY 06/07/17 Clopidogrel Bisulfate [Plavix] 75 mg PO DAILY 06/07/17 Ergocalciferol [Vitamin D] 50,000 unit PO QWEEK 06/07/17 Famotidine [Pepcid] 40 mg PO DAILY 06/07/17 Furosemide [Lasix] 80 mg PO DAILY 06/07/17 Gabapentin [Neurontin] 300 mg PO QHS 06/07/17 Insulin Glargine,Hum.rec.anlog 52 unit SQ DAILY 06/07/17 [Toujeo Solostar] Isosorbide Mononitrate [Isosorbide 60 mg PO BID 06/07/17 Mononitrate ER] Losartan Potassium [Cozaar] 50 mg PO DAILY 06/07/17 Pyridoxine HCl (Vitamin B6) [B-6] 100 mg PO DAILY 06/07/17 Ranolazine [Ranexa] 500 mg PO BID 06/07/17 Sennosides [Senna] 8.6 mg PO QHS PRN 06/07/17 Timolol Maleate [Timoptic-XE 0.5%] 1 drop RIGHT EYE TID 06/07/17 Vitamin B Complex/Folic Acid 0.4 mg PO DAILY 06/07/17 [B-Complex Tablet] Past Medical History (Chronic Problems): Chronic Problems (Last Reviewed 05/14/17 @ 14:02 by Carmen Mckoy) angioplasty of arteriovenous fistula (Chronic ~01/2017) Encounter for long-term (current) use of other medications (Chronic) Abnormal stress test (Chronic) AV fistula (Chronic) Morbid obesity (Chronic) Diabetes mellitus type 2 in obese (Chronic) Anemia in chronic renal disease (Chronic) End-stage renal disease on hemodialysis (Chronic) Diastolic dysfunction (Chronic) Diastolic congestive heart failure (Chronic) History of coronary artery bypass graft x 3 (Chronic) Coronary artery disease (Chronic) CT Surgery: 06/29/2014: [facility]: KINCAID to the LAD; SVG to the LCx system; SVG to the RCA system Hypertension (Chronic) HLD (hyperlipidemia) (Chronic) COPD (chronic obstructive pulmonary disease) (Chronic) CLAUDIO (obstructive sleep apnea) (Chronic) Hypokalemia (Chronic) Secondary hyperparathyroidism of renal origin (Chronic) Glaucoma (Chronic) Surgical History: angioplasty, cataract, coronary bypass surgery - x3v, hysterectomy, - - AVF placement, back surgery 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: No pertinent CERTIFIED TECHNICIAN SPECIALIST history - *Family History Paternal Family History: Family History (Last Reviewed 05/14/17 @ 14:02 by Carmen Mckoy) Father Heart disease Hypertension Prostate cancer Mother Hypertension History Items: Cancer - prostate, Heart Disease, Hypertension Sibling Family History: Family History (Last Reviewed 05/14/17 @ 14:02 by Carmen Mckoy) Father Heart disease Hypertension Prostate cancer Mother Hypertension History Items: Diabetes Maternal Family History: Family History (Last Reviewed 05/14/17 @ 14:02 by Carmen Mckoy) Father Heart disease Hypertension Prostate cancer Mother Hypertension History Items: Hypertension Lives: With Family Smoking Status: Former smoker Alcohol: None Drugs: None Review of Systems - Review of Systems General: Denies: Fever, Night Sweats, Weight Loss HEENT: Reports: Sinus Congestion Cardiovascular: Reports: Chest Discomfort at Rest, Shortness of Breath at Rest, Shortness of Breath with Exertion. Denies: Orthopnea, PND, Peripheral Edema Respiratory: Reports: Cough. Denies: Pleurtic Chest Pain Gastrointestinal: Denies: Jaundice, Nausea, Emesis Muscoloskeletal: Denies: Myalgias Neurological: Denies: History of TIA, History of CVA Psychiatric: Denies: Depression Endocrine: Denies: Unexplained Weight Loss Hematologic/ Lymphatic: Denies: Easy Brusing, Easy Bleeding Objective: Vital Signs Temp Pulse Resp BP Pulse Ox 98.9 F 67 18 109/57 L 99 06/07/17 09:21 06/07/17 11:01 06/07/17 09:21 06/07/17 09:21 06/07/17 09:21 Oxygen Flow Rate 2 Oxygen Delivery Method Nasal Cannula Weight: 92.8 kg Body Mass Index (BMI) 38.6 General: Healthy Appearing, Awake, Alert, Oriented x 3, No Acute Distress HEENT: Atraumatic Oral: Moist Mucosa Neck: Supple Lungs: Clear to auscultation Cardiovascular: Regular Rhythm, Normal S1, Normal S2 Abdomen: Bowel Sounds Present, Soft Extremities: No edema Neurological: No Focal Motor or Sensory Deficit Psych/Mental Status: Appropriate 06/07/17 09:25: Troponin I 0.62 H* Rhythm: EKG: Normal sinus rhythm. ST-T wave changes in high lateral denoting ischemia CXR: Cardiomegaly. No infiltrate or pulmonary edema was noted Assessment/Plan 1. Non-ST elevation myocardial infarction. First troponin was 0.36. Second 0.62. Most likely secondary to the OPD exacerbation with hypoxia on baseline severe coronary artery disease. Demand phenomenon. Continue medical treatment. Resume patient's nitrates. Continue aspirin and Plavix. Continue beta blockers and Ranexa. Patient had cardiac catheterization done about 7 months ago. It was reported as showing patent KINCAID graft to the LAD and patent vein graft to the obtuse marginal. About 50% lesion was described at the anastomotic site of SVG to OM. Check 2D echocardiogram with Doppler 2. COPD exacerbation with hypoxia. Manage as per internal medicine 3. End-stage renal disease on hemodialysis 4. Diabetes mellitus 5. Dyslipidemia 6. History of hypertension 7. Anemia of chronic disease
[2017-06-07 12:05] LABS: Bedside Glucose 375 mg/dL (70-110)
--- NOTE | 2017-06-07 12:11 | ECHOD_ITS ---
Reason For Study: NSTEMI Procedure This was a 2D Doppler, Color Flow transthoracic echocardiogram. The exam was of adequate technical quality. Exam performed portable in patient room. Left Ventricle Normal LV size. Mild segmental systolic dysfunction (see wall motion). The estimated ejection fraction is 50 %. Transmitral doppler flow suggestive of impaired relaxation of left ventricle. Lateral-Basal: Hypokinetic. Posterior-Basal: Hypokinetic. Infero-Basal: Hypokinetic. Mid-Lateral : Hypokinetic. Mid-Posterior: Hypokinetic. Mid-Inferior: Hypokinetic. Inferior [place] : Hypokinetic. Right Ventricle Normal RV size. Normal systolic function. Atria The left atrium is mildly enlarged. Normal right atrium. No doppler evidence for ASD. Mitral Valve There is no mitral annular calcification. Mild diffuse mitral valve thickening. Moderate (2+) mitral valve insufficiency. Tricuspid Valve Normal tricuspid valve. Mild tricuspid valve insufficiency. Right ventricular systolic pressure estimated to be 56 mmHg. Aortic Valve Trisinus/trileaflet aortic valve. Mild focal aortic valve calcification. Pulmonic Valve The pulmonic valve is not well visualized. Trivial eccentric pulmonic valve insufficiency. Great Vessels Normal sized aortic root. Pericardium/Pleural No pericardial effusion. MMode/2D Measurements & Calculations LVIDd: 4.7 cm IVSd: 1.2 cm Ao root diam: 2.9 cm LVIDs: 3.6 cm LVPWd: 1.3 cm LA dimension: 3.9 cm RVDd: 3.0 cm FS: 23.5 % LAV(MOD-bp): 61.2 ml LA A4 area: 22.5 cm2 RA A4 area: 16.9 cm2 LAV(MOD-bp) Indexed: 32.3 ml/m2 LAV(MOD-sp2): 56.2 ml LAV(MOD-sp4): 68.1 ml Doppler Measurements & Calculations MV E max [place]: 138.6 cm/sec Lat Peak E' [place]: 5.3 cm/sec Med Peak E' [place]: 4.8 cm/sec MV A max [place]: 58.8 cm/sec E/E' lat: 26.2 E/E' med: 29.0 MV E/A: 2.4 Ao V2 max: 127.6 cm/sec LV V1 max: 113.6 cm/sec PA V2 max: 92.3 cm/sec Ao max P.5 mmHg LV V1 max P.2 mmHg TR max [place]: 362.6 cm/sec TR max P.0 mmHg Interpretation Summary Mild segmental systolic dysfunction (see wall motion). The estimated ejection fraction is 50 %. The left atrium is mildly enlarged. Mild diffuse mitral valve thickening. Moderate (2+) mitral valve insufficiency. Mild tricuspid valve insufficiency. Mild focal aortic valve calcification. Trivial eccentric pulmonic valve insufficiency. Right ventricular systolic pressure estimated to be 56 mmHg c/w pulmonary hypertension. Transmitral doppler flow suggestive of impaired relaxation of left ventricle Ordering Physician: Mike Thomason Referring Physician: Brayden King Chi Performed By: Gabrielle Fontenot RDCS
--- NOTE | 2017-06-07 12:24 | PCM.CONS.R ---
Consultation - Renal 06/07/17 PCP/ Referring MD: Requesting physician: Dixon Estrella Primary care physician: Brayden King Reason for Consultation:: ESRD HD TTS, renal mgmt - History of Present Illness History of Present Illness: The patient is a 56 year old F known to me with ESRD due to diabetes on HD TTS, dialyzed Sunday for missed treatment Sunday due to a . She presents with chest tightness yesterday on dialysis. She denied nausea, vomiting, jaw/arm pain. She has a history of CAD s/p CABG and recent stress test. Troponin was mildly elevated in the ER. She had a hypotensive episode in ER. She was treated for URI with antibx and steroids by her PCP prior to admit. She had chills. She denied cough or sputum production but had some wheezing and chest congeston. Dialysis is arranged for today with dialysis nurse at bedside. She is feeling better after aerosol treatments. Cardiology consulted. - Allergies Allergies: Allergies lisinopril Allergy (Verified 06/07/17 05:35) Unknown ranitidine HCl [From Zantac] Allergy (Verified 06/07/17 05:35) Hives azithromycin Adverse Reaction (Verified 06/07/17 05:35) Nausea/Vom/Diarrhea - Current Medications Current Medications: Current Medications Acetaminophen (Tylenol) 650 mg PO Q6H PRN PRN PRN Reason: Mild Pain (1-3)/Temp > 100.7 F Albuterol Sulfate (Ventolin Aerosols) 2.5 mg INHALATION Q2H PRN PRN PRN Reason: SHORTNESS OF BREATH Albuterol/Ipratropium (Duoneb) 3 ml INHALATION Q4H.RT [facility] Last Admin: 06/07/17 10:59 Dose: 3 ml Aspirin (Aspirin, Baby) 81 mg PO DAILY@0800 [facility] Last Admin: 06/07/17 10:47 Dose: 81 mg Atorvastatin Calcium (Lipitor) 80 mg PO QHS [facility] Atropine Sulfate (Atropisol) 1 drop PO BID [facility] Last Admin: 06/07/17 10:52 Dose: 1 day Brimonidine Tartrate (Brimonidine 0.2% 5ml Bottle) 1 drop LEFT EYE TID [facility] Calcitriol (Rocaltrol) 0.5 mcg PO DAILY [facility] Last Admin: 06/07/17 10:48 Dose: 0.5 mcg Calcium Acetate (Phoslo Gel Cap) 667 mg PO TIDCM [facility] Last Admin: 06/07/17 12:08 Dose: Not Given Carvedilol (Coreg) 25 mg PO BID [facility] Last Admin: 06/07/17 10:47 Dose: 25 mg Citalopram Hydrobromide (Celexa) 20 mg PO DAILY [facility] Last Admin: 06/07/17 10:47 Dose: 20 mg Clopidogrel Bisulfate (Plavix) 75 mg PO DAILY [facility] Last Admin: 06/07/17 10:48 Dose: 75 mg Ergocalciferol (Vitamin D) 50,000 unit PO [facility] Famotidine (Pepcid) 20 mg PO DAILY [facility] Last Admin: 06/07/17 10:47 Dose: 20 mg Gabapentin (Neurontin) 300 mg PO QHS [facility] Guaifenesin (Mucinex) 600 mg PO BID [facility] Last Admin: 06/07/17 10:47 Dose: 600 mg Heparin Sodium (Porcine) () 5,000 units SC BID [facility] Last Admin: 06/07/17 10:48 Dose: 5,000 units Insulin Aspart (Novolog Flexpen (Bk)) 0 units SC TIDAC [facility] PRN Reason: Protocol Insulin Detemir (Levemir (Bk)) 52 units SC DAILY [facility] Last Admin: 06/07/17 10:48 Dose: 52 u Magnesium Hydroxide (Milk Of Magnesia) 30 ml PO DAILY PRN PRN Reason: Constipation Methylprednisolone (Solu-Medrol) 40 mg IV Q8 [facility] Multivitamins (Allbee W/C Caplet, Thera B Comp/C) [facility] Nitroglycerin (Nitrobid) 1 inch TRANSDERM. Q8 [facility] Ondansetron HCl (Zofran) 4 mg IV Q8H PRN PRN PRN Reason: NAUSEA Ondansetron HCl (Zofran) 8 mg PO Q6H PRN PRN Reason: NAUSEA Pyridoxine HCl (Vitamin B-6) 100 mg PO DAILY [facility] Last Admin: 06/07/17 10:48 Dose: 100 mg Ranolazine (Ranexa) 500 mg PO BID [facility] Last Admin: 06/07/17 10:48 Dose: 500 mg Senna (Senokot) 1 tablet PO QHS PRN PRN Reason: Constipation Timolol Maleate (Timoptic) 1 drop LEFT EYE BID [facility] - Past Medical History Past Medical History (Chronic Problems): Chronic Problems (Last Reviewed 05/14/17 @ 14:02 by Carmen Mckoy) angioplasty of arteriovenous fistula (Chronic ~01/2017) Encounter for long-term (current) use of other medications (Chronic) Abnormal stress test (Chronic) AV fistula (Chronic) Morbid obesity (Chronic) Diabetes mellitus type 2 in obese (Chronic) Anemia in chronic renal disease (Chronic) End-stage renal disease on hemodialysis (Chronic) Diastolic congestive heart failure (Chronic) History of coronary artery bypass graft x 3 (Chronic) Coronary artery disease (Chronic) CT Surgery: 06/29/2014: [facility]: KINCAID to the LAD; SVG to the LCx system; SVG to the RCA system Hypertension (Chronic) HLD (hyperlipidemia) (Chronic) COPD (chronic obstructive pulmonary disease) (Chronic) CLAUDIO (obstructive sleep apnea) (Chronic) Hypokalemia (Chronic) Secondary hyperparathyroidism of renal origin (Chronic) Glaucoma (Chronic) - Past Surgical History Surgical History: angioplasty, cataract, coronary bypass surgery - x3v, hysterectomy, - - AVF placement, back surgery - Social History Smoking Status: Former smoker Alcohol: None Drugs: None - Family History Paternal Family History: Family History (Last Reviewed 05/14/17 @ 14:02 by Carmen Mckoy) Father Heart disease Hypertension Prostate cancer Mother Hypertension History Items: Cancer - prostate, Heart Disease, Hypertension Sibling Family History: Family History (Last Reviewed 05/14/17 @ 14:02 by Carmen Mckoy) Father Heart disease Hypertension Prostate cancer Mother Hypertension History Items: Diabetes Maternal Family History: Family History (Last Reviewed 05/14/17 @ 14:02 by Carmen Mckoy) Father Heart disease Hypertension Prostate cancer Mother Hypertension History Items: Hypertension Review of Systems Constitutional: Reports: Chills. Denies: Fever, Weakness, Fatigue Eyes: Denies: Blurred vision HEENT: Denies: Head Aches Cardiovascular: Reports: Chest Pain. Denies: Edema, Syncope Respiratory: Reports: Shortness of Breath, Wheezing. Denies: Cough Gastrointestinal: Denies: Abdominal Pain, Constipation, Diarrhea, Nausea, Vomiting Genitourinary: Denies: Dysuria Skin: Denies: Rash Neurological: Denies: Balance problems Psychiatric: Reports: Anxiety Hematologic/ Lymphatic: Reports: Anemia Patient Problems: Active and Suspected Problems (Last Reviewed 05/14/17 @ 14:02 by Carmen Mckoy) Chest pain (Acute) - Physical Exam General: Alert, Oriented x3, Cooperative Neck: Supple Lungs: Wheezes Cardiovascular: Regular rate, Murmur Abdomen: Bowel Sounds Present, Soft, Non Tender, Non-Distended Extremities: No edema, - - AVF left arm Skin: No rashes Musculoskeletal: No Muscle Wasting Psych/Mental Status: Normal Affect, Alert and oriented to time, place, person, mood and affect Vital Signs Temp Pulse Resp BP Pulse Ox 98.9 F 67 18 109/57 L 99 06/07/17 09:21 06/07/17 11:01 06/07/17 09:21 06/07/17 09:21 06/07/17 09:21 Oxygen Flow Rate 2 Oxygen Delivery Method Nasal Cannula Weight: 92.8 kg Body Mass Index (BMI) 38.6 Intake and Output for Last 24 Hours 06/05/17 06/06/17 06/07/17 23:59 23:59 23:59 Intake Total 240 / 240 Balance 240 / 240 Microbiology Past 72 Hours 06/07/17 07:30 Respiratory Panel (PCR) - Final Mucosa - Nose Laboratory Tests Past 24 Hrs 06/07/17 06/07/17 09:25 12:10 Troponin I 0.62 H* Pending POC Glucose 06/07/17 11:59 POC Glucose 375 H Clinical Impression(s) from Imaging Studies Chest X-Ray 06/07/17 05:52 IMPRESSION: Moderate cardiomegaly. No pneumonia. No failure. No pleural effusions. Electronically Signed: Dimitrios Alexis, at 6:30 EST Tel , Service support , Assessment/Plan Active and Suspected Problems (Last Reviewed 05/14/17 @ 14:02 by Carmen Mckoy) Chest pain (Acute) 1. ESRD HD today then TTS schedule 2. Chest pain with +troponins. Hx CAD CABG. Cardiology consulted 3. Low grade fever with recent URI. Copd exacerbation on iv steroids 4. Anemia hgb low, MORGAN therapy with HD 5. DM2 elevated sugars on steroids 6. HTN BP low, received fluid bolus in ER. Cautious fluid removal on dialysis.
--- NOTE | 2017-06-07 12:32 | CON.PCM_ITS ---
Consultation - Renal 06/07/17 PCP/ Referring MD: Requesting physician: Dixon Estrella Primary care physician: Brayden King Reason for Consultation:: ESRD HD TTS, renal mgmt - History of Present Illness History of Present Illness: The patient is a 56 year old F known to me with ESRD due to diabetes on HD TTS, dialyzed Sunday for missed treatment Sunday due to a . She presents with chest tightness yesterday on dialysis. She denied nausea, vomiting, jaw/ arm pain. She has a history of CAD s/p CABG and recent stress test. Troponin was mildly elevated in the ER. She had a hypotensive episode in ER. She was treated for URI with antibx and steroids by her PCP prior to admit. She had chills. She denied cough or sputum production but had some wheezing and chest congeston. Dialysis is arranged for today with dialysis nurse at bedside. She is feeling better after aerosol treatments. Cardiology consulted. - Allergies Allergies: Allergies lisinopril Allergy (Verified 06/07/17 05:35) Unknown ranitidine HCl [From Zantac] Allergy (Verified 06/07/17 05:35) Hives azithromycin Adverse Reaction (Verified 06/07/17 05:35) Nausea/Vom/Diarrhea - Current Medications Current Medications: Current Medications Acetaminophen (Tylenol) 650 mg PO Q6H PRN PRN PRN Reason: Mild Pain (1-3)/Temp > 100.7 F Albuterol Sulfate (Ventolin Aerosols) 2.5 mg INHALATION Q2H PRN PRN PRN Reason: SHORTNESS OF BREATH Albuterol/Ipratropium (Duoneb) 3 ml INHALATION Q4H.RT [facility] Last Admin: 06/07/17 10:59 Dose: 3 ml Aspirin (Aspirin, Baby) 81 mg PO DAILY@0800 [facility] Last Admin: 06/07/17 10:47 Dose: 81 mg Atorvastatin Calcium (Lipitor) 80 mg PO QHS [facility] Atropine Sulfate (Atropisol) 1 drop PO BID [facility] Last Admin: 06/07/17 10:52 Dose: 1 day Brimonidine Tartrate (Brimonidine 0.2% 5ml Bottle) 1 drop LEFT EYE TID [facility] Calcitriol (Rocaltrol) 0.5 mcg PO DAILY [facility] Last Admin: 06/07/17 10:48 Dose: 0.5 mcg Calcium Acetate (Phoslo Gel Cap) 667 mg PO TIDCM [facility] Last Admin: 06/07/17 12:08 Dose: Not Given Carvedilol (Coreg) 25 mg PO BID [facility] Last Admin: 06/07/17 10:47 Dose: 25 mg Citalopram Hydrobromide (Celexa) 20 mg PO DAILY [facility] Last Admin: 06/07/17 10:47 Dose: 20 mg Clopidogrel Bisulfate (Plavix) 75 mg PO DAILY [facility] Last Admin: 06/07/17 10:48 Dose: 75 mg Ergocalciferol (Vitamin D) 50,000 unit PO [facility] Famotidine (Pepcid) 20 mg PO DAILY [facility] Last Admin: 06/07/17 10:47 Dose: 20 mg Gabapentin (Neurontin) 300 mg PO QHS [facility] Guaifenesin (Mucinex) 600 mg PO BID [facility] Last Admin: 06/07/17 10:47 Dose: 600 mg Heparin Sodium (Porcine) () 5,000 units SC BID [facility] Last Admin: 06/07/17 10:48 Dose: 5,000 units Insulin Aspart (Novolog Flexpen (Bk)) 0 units SC TIDAC [facility] PRN Reason: Protocol Insulin Detemir (Levemir (Bk)) 52 units SC DAILY [facility] Last Admin: 06/07/17 10:48 Dose: 52 u Magnesium Hydroxide (Milk Of Magnesia) 30 ml PO DAILY PRN PRN Reason: Constipation Methylprednisolone (Solu-Medrol) 40 mg IV Q8 [facility] Multivitamins (Allbee W/C Caplet, Thera B Comp/C) [facility] Nitroglycerin (Nitrobid) 1 inch TRANSDERM. Q8 [facility] Ondansetron HCl (Zofran) 4 mg IV Q8H PRN PRN PRN Reason: NAUSEA Ondansetron HCl (Zofran) 8 mg PO Q6H PRN PRN Reason: NAUSEA Pyridoxine HCl (Vitamin B-6) 100 mg PO DAILY [facility] Last Admin: 06/07/17 10:48 Dose: 100 mg Ranolazine (Ranexa) 500 mg PO BID [facility] Last Admin: 06/07/17 10:48 Dose: 500 mg Senna (Senokot) 1 tablet PO QHS PRN PRN Reason: Constipation Timolol Maleate (Timoptic) 1 drop LEFT EYE BID [facility] - Past Medical History Past Medical History (Chronic Problems): Chronic Problems (Last Reviewed 05/14/17 @ 14:02 by Carmen Mckoy) angioplasty of arteriovenous fistula (Chronic ~01/2017) Encounter for long-term (current) use of other medications (Chronic) Abnormal stress test (Chronic) AV fistula (Chronic) Morbid obesity (Chronic) Diabetes mellitus type 2 in obese (Chronic) Anemia in chronic renal disease (Chronic) End-stage renal disease on hemodialysis (Chronic) Diastolic congestive heart failure (Chronic) History of coronary artery bypass graft x 3 (Chronic) Coronary artery disease (Chronic) CT Surgery: 06/29/2014: [facility]: KINCAID to the LAD; SVG to the LCx system; SVG to the RCA system Hypertension (Chronic) HLD (hyperlipidemia) (Chronic) COPD (chronic obstructive pulmonary disease) (Chronic) CLAUDIO (obstructive sleep apnea) (Chronic) Hypokalemia (Chronic) Secondary hyperparathyroidism of renal origin (Chronic) Glaucoma (Chronic) - Past Surgical History Surgical History: angioplasty, cataract, coronary bypass surgery - x3v, hysterectomy, - - AVF placement, back surgery - Social History Smoking Status: Former smoker Alcohol: None Drugs: None - Family History Paternal Family History: Family History (Last Reviewed 05/14/17 @ 14:02 by Carmen Mckoy) Father Heart disease Hypertension Prostate cancer Mother Hypertension History Items: Cancer - prostate, Heart Disease, Hypertension Sibling Family History: Family History (Last Reviewed 05/14/17 @ 14:02 by Carmen Mckoy) Father Heart disease Hypertension Prostate cancer Mother Hypertension History Items: Diabetes Maternal Family History: Family History (Last Reviewed 05/14/17 @ 14:02 by Carmen Mckoy) Father Heart disease Hypertension Prostate cancer Mother Hypertension History Items: Hypertension Review of Systems Constitutional: Reports: Chills. Denies: Fever, Weakness, Fatigue Eyes: Denies: Blurred vision HEENT: Denies: Head Aches Cardiovascular: Reports: Chest Pain. Denies: Edema, Syncope Respiratory: Reports: Shortness of Breath, Wheezing. Denies: Cough Gastrointestinal: Denies: Abdominal Pain, Constipation, Diarrhea, Nausea, Vomiting Genitourinary: Denies: Dysuria Skin: Denies: Rash Neurological: Denies: Balance problems Psychiatric: Reports: Anxiety Hematologic/ Lymphatic: Reports: Anemia Patient Problems: Active and Suspected Problems (Last Reviewed 05/14/17 @ 14:02 by Carmen Mckoy) Chest pain (Acute) - Physical Exam General: Alert, Oriented x3, Cooperative Neck: Supple Lungs: Wheezes Cardiovascular: Regular rate, Murmur Abdomen: Bowel Sounds Present, Soft, Non Tender, Non-Distended Extremities: No edema, - - AVF left arm Skin: No rashes Musculoskeletal: No Muscle Wasting Psych/Mental Status: Normal Affect, Alert and oriented to time, place, person, mood and affect Vital Signs Temp Pulse Resp BP Pulse Ox 98.9 F 67 18 109/57 L 99 06/07/17 09:21 06/07/17 11:01 06/07/17 09:21 06/07/17 09:21 06/07/17 09:21 Oxygen Flow Rate 2 Oxygen Delivery Method Nasal Cannula Weight: 92.8 kg Body Mass Index (BMI) 38.6 Intake and Output for Last 24 Hours 06/05/17 06/06/17 06/07/17 23:59 23:59 23:59 Intake Total 240 / 240 Balance 240 / 240 Microbiology Past 72 Hours 06/07/17 07:30 Respiratory Panel (PCR) - Final Mucosa - Nose Laboratory Tests Past 24 Hrs 06/07/17 06/07/17 09:25 12:10 Troponin I 0.62 H* Pending POC Glucose 06/07/17 11:59 POC Glucose 375 H Clinical Impression(s) from Imaging Studies Chest X-Ray 06/07/17 05:52 IMPRESSION: Moderate cardiomegaly. No pneumonia. No failure. No pleural effusions. Electronically Signed: Dimitrios Alexis, at 6:30 EST Tel , Service support , Assessment/Plan Active and Suspected Problems (Last Reviewed 05/14/17 @ 14:02 by Carmen Mckoy) Chest pain (Acute) 1. ESRD HD today then TTS schedule 2. Chest pain with +troponins. Hx CAD CABG. Cardiology consulted 3. Low grade fever with recent URI. Copd exacerbation on iv steroids 4. Anemia hgb low, MORGAN therapy with HD 5. DM2 elevated sugars on steroids 6. HTN BP low, received fluid bolus in ER. Cautious fluid removal on dialysis.
--- NOTE | 2017-06-07 16:55 | DIALYSIS ---
Pt ran 3.5 hrs; 500 removed; SBPs 90s-120s; 2201; stable and tolerated well. Next tx 06/09/17, but may be in own chronic clinic. [place] removed; hemostasis acheived; DSD applied
[2017-06-07 17:01] LABS: Bedside Glucose 299 mg/dL (70-110)
[2017-06-07] MEDS: 0.9% NaCl Peripheral Flush Adult/Peds IV (17:21)
[2017-06-07] MEDS: Acetaminophen 325 MG Tablet 650 MG PO (17:26)
--- NOTE | 2017-06-07 21:04 | EKG12_ITS ---
Test Reason : CHEST PAIN Blood Pressure : / mmHG Vent. Rate : 081 BPM Atrial Rate : 081 BPM P-R Int : 168 ms QRS Dur : 108 ms QT Int : 436 ms P-R-T Axes : 057 -52 161 degrees QTc Int : 506 ms Normal sinus rhythm Left axis deviation Marked ST abnormality, possible inferolateral subendocardial injury Prolonged QT Abnormal ECG When compared with ECG of 07-JUN-2017 05:54, MANUAL COMPARISON REQUIRED, DATA IS UNCONFIRMED Confirmed by OLINDA MUSTAFA ([id number]), supervising editor news reel MADDY STERLING ([id number]) on 06/14/2017 3:04:22 PM Referred By: AMBROSIO Confirmed By:OLINDA MUSTAFA
[2017-06-07] MEDS: Nitroglycerin Oint 1 INCH PACKET TRANSDERM. (21:38)
[2017-06-07] MEDS: Timolol 0.5% 5ML OPTH.BTL 1 DRP LEFT EYE (21:52)
[2017-06-07] MEDS: Atorvastatin Calcium 80 MG Tablet PO (21:52)
[2017-06-07] MEDS: Gabapentin 300 MG Capsule PO (21:54)
[2017-06-07 22:26] LABS: Bedside Glucose 366 mg/dL (70-110)
[2017-06-07 23:26] LABS: Hematocrit 27.2 % (37-47); Hemoglobin 8.7 g/dl (12.0-15.0); Mean Corpuscular Hgb 30.5 pg (27.0-32.0); Mean Corpuscular Volume 95.4 fL (81-99); Mean Platelet Vol. 9.1 fl (6.2-12.0); Platelet Count 319 K/mm3 (150-450); RBC Distribution Width CV 17.3 % (11.6-14.6); RBC Distribution Width SD 60.7 fl (35.1-43.9); Red Blood Count 2.85 M/mm3 (4.2-5.4); White Blood Count 12.3 K/mm3 (4.4-11.0)
[2017-06-07 23:27] LABS: Scan Indicated on CBC? Y/N NO
[2017-06-07 23:32] LABS: Partial Thromboplast Time 30.4 Seconds (24.1-36.2)
[2017-06-07 23:54] LABS: International Normalized Ratio 1.2; Prothrombin Time (Protime)PT. 14.7 SECONDS (11.7-14.9)
[2017-06-08] VITALS (18 sets, daily range): BP systolic 106–133; BP diastolic 48–93; PULSE 68–77; RESP 14–18; TEMP 36.8–36.9; O2SAT 95–99
[2017-06-08] MEDS: HEPARIN/D5w 25,000 UNITS 25,000 UNITS/250 ML IV.SOLN. 14 UNITS IV (00:07)
[2017-06-08] MEDS: Ipratropium/Albuterol Sulfate 3 ML AMPUL.NEB INHALATION ×4 (02:28→19:42)
[2017-06-08] MEDS: Nitroglycerin Oint 1 INCH PACKET TRANSDERM. ×3 (05:07→22:36)
[2017-06-08 06:22] LABS: Hematocrit 28.3 % (37-47); Mean Corp Hgb Conc 31.8 g/gl (32-36); Mean Corpuscular Hgb 30.8 pg (27.0-32.0); Mean Corpuscular Volume 96.9 fL (81-99); Platelet Count 328 K/mm3 (150-450); RBC Distribution Width CV 16.8 % (11.6-14.6); RBC Distribution Width SD 57.1 fl (35.1-43.9); Red Blood Count 2.92 M/mm3 (4.2-5.4); White Blood Count 13.6 K/mm3 (4.4-11.0)
[2017-06-08 06:26] LABS: Scan Indicated on CBC? Y/N NO
[2017-06-08 06:29] LABS: International Normalized Ratio 1.3; Prothrombin Time (Protime)PT. 15.4 SECONDS (11.7-14.9)
[2017-06-08 06:35] LABS: Partial Thromboplast Time 199.5 Seconds (24.1-36.2)
--- NOTE | 2017-06-08 07:00 | EKG12_ITS ---
Test Reason : AM EKG Blood Pressure : / mmHG Vent. Rate : 073 BPM Atrial Rate : 073 BPM P-R Int : 164 ms QRS Dur : 100 ms QT Int : 444 ms P-R-T Axes : 063 -54 138 degrees QTc Int : 489 ms Normal sinus rhythm Left axis deviation ST & T wave abnormality, consider anterolateral ischemia Prolonged QT Abnormal ECG When compared with ECG of 07-JUN-2017 21:16, MANUAL COMPARISON REQUIRED, DATA IS UNCONFIRMED Confirmed by OLINDA MUSTAFA ([id number]), digital editor MADDY STERLING ([id number]) on 06/14/2017 3:04:38 PM Referred By: AMBROSIO Confirmed By:OLINDA MUSTAFA
[2017-06-08 07:05] LABS: Bedside Glucose 278 mg/dL (70-110)
[2017-06-08 07:28] LABS: Anion Gap 12 (5-15); BUN 37 mg/dL (7-18); BUN/Creat Ratio 10.6 RATIO (10-20); Calcium,Total 8.8 mg/dL (8.5-10.1); Chloride 94 mmol/L (98-107); EST Glomerular Filtration Rate 14 mL/min (>60); Est Glom Filt Rate - Afr Amer 17 mL/min (>60); Estimated Creatinine Clearance 13.38 ml/min; Glucose 276 mg/dL (74-106); Potassium 3.7 mmol/L (3.5-5.1); Sodium Level 133 mmol/L (136-145)
--- NOTE | 2017-06-08 08:52 | PCM.PROGNOTE ---
Patient Problems: Active and Suspected Problems (Last Reviewed 05/14/17 @ 14:02 by Carmen Mckoy) Chest pain (Acute) Subjective: The patient was seen and examined at the bedside this morning. Events from the last 24 hours have been reviewed. The patient is currently afebrile, hemodynamically stable and maintaining appropriate oxygen saturations on 2 L/min via nasal cannula. The patient does report interval improvement in her breathing quality, but does report that she still experiences dyspnea with exertion. The patient did tolerate hemodialysis yesterday with 500 mL's of fluid removed. Objective: The patient's most recent lab work, culture data and imaging studies have all been personally reviewed. Respiratory viral panel was found to be negative. Initial plain film chest x-ray did reveal mild cardiomegaly without an acute infiltrative process. The patient's last surface echocardiogram completed in September 2016 revealed evidence of diastolic dysfunction with a preserved ejection fraction of 60%. - Physical Exam General: Alert, Cooperative, No apparent distress HEENT: Atraumatic, PERRLA, Normocephalic Oral: Moist Mucosa, No Gingival or Mucosal Lesions/ Ulcerations Neck: Supple, No Nodes, Trachea Midline Lungs: No rhonchi, No wheeze, No rales, Diminished Cardiovascular: Regular rate, Regular Rhythm, Normal S1, Normal S2, No murmurs Abdomen: Bowel Sounds Present, Soft, Non Tender, Obese Extremities: No clubbing, No cyanosis, No edema Skin: No rashes, No breakdown Musculoskeletal: No Tenderness to Palpation of Joints or Extremities Lymphatic: No Cervical, Supraclavicular, or Inguinal Adenopathy Neurological: Neuro grossly intact Psych/Mental Status: Normal Affect, Appropriate Vital Signs Temp Pulse Resp BP Pulse Ox 98.5 F 71 18 109/48 L 98 06/08/17 05:00 06/08/17 07:00 06/08/17 05:00 06/08/17 05:07 06/08/17 07:14 Oxygen Flow Rate 2 Oxygen Delivery Method Nasal Cannula Weight: 202 lb 2.622 oz Body Mass Index (BMI) 38.6 Intake and Output for Last 24 Hours 06/06/17 06/07/17 06/08/17 23:59 23:59 23:59 Intake Total 720 / 720 68 / 68 Output Total 500 / 500 Balance 220 / 220 68 / 68 Microbiology Past 72 Hours 06/07/17 07:30 Respiratory Panel (PCR) - Final Mucosa - Nose Laboratory Tests Past 24 Hrs 06/07/17 06/07/17 06/07/17 09:25 12:10 23:15 WBC RBC Hgb Hct MCV MCH MCHC RDW RDW Differential Plt Count MPV PT INR APTT 30.4 Sodium Potassium Chloride Carbon Dioxide Anion Gap BUN Creatinine Estim Creat Clear Calc Est GFR (MDRD) Af Amer Est GFR (MDRD) Non-Af BUN/Creatinine Ratio Glucose Calcium Troponin I 0.62 H* 0.89 H* 06/07/17 06/07/17 06/08/17 23:15 23:15 05:40 WBC 12.3 H 13.6 H RBC 2.85 L 2.92 L Hgb 8.7 L 9.0 L Hct 27.2 L 28.3 L MCV 95.4 96.9 MCH 30.5 30.8 MCHC 32.0 31.8 L RDW 17.3 H 16.8 H RDW Differential 60.7 H 57.1 H Plt Count 319 328 MPV 9.1 10.0 PT 14.7 INR 1.2 APTT Sodium Potassium Chloride Carbon Dioxide Anion Gap BUN Creatinine Estim Creat Clear Calc Est GFR (MDRD) Af Amer Est GFR (MDRD) Non-Af BUN/Creatinine Ratio Glucose Calcium Troponin I 06/08/17 06/08/17 05:40 05:40 WBC RBC Hgb Hct MCV MCH MCHC RDW RDW Differential Plt Count MPV PT 15.4 H INR 1.3 APTT 199.5 H* Sodium 133 L Potassium 3.7 Chloride 94 L Carbon Dioxide 27.0 Anion Gap 12 BUN 37 H Creatinine 3.50 H Estim Creat Clear Calc 13.38 Est GFR (MDRD) Af Amer 17 L Est GFR (MDRD) Non-Af 14 L BUN/Creatinine Ratio 10.6 Glucose 276 H Calcium 8.8 Troponin I POC Glucose 06/08/17 06/07/17 06/07/17 06:59 21:11 16:54 POC Glucose 278 H 366 H 299 H 06/07/17 11:59 POC Glucose 375 H Clinical Impression(s) from Imaging Studies Chest X-Ray 06/07/17 05:52 IMPRESSION: Moderate cardiomegaly. No pneumonia. No failure. No pleural effusions. Electronically Signed: Dimitrios Alexis, at 6:30 EST Tel , Service support , Assessment/Plan Active and Suspected Problems (Last Reviewed 05/14/17 @ 14:02 by Carmen Mckoy) Chest pain (Acute) IMPRESSION/PLAN: 1. Questionable decompensated COPD There are no PFTs to confirm whether or not the patient truly has a fixed airway obstruction. Her shortness of breath may be secondary to COPD without any baseline inhalers. In addition, it also may be secondary to her underlying renal disease versus cardiac in origin. She does not appear to have an acute infectious process at play here. Her viral panel was negative. Her leukocytosis is likely the consequence of her recently administered corticosteroids. Would plan to wean her supplemental oxygen to maintain saturations at or above 90%. Perform walking oximetry prior to consideration for discharge from the hospital. Continue scheduled aerosol treatments as ordered. Would plan to DC steroids, as I do not feel the patient is experiencing an acute exacerbation. The patient has been advised to follow-up with me in the pulmonary medicine clinic at her scheduled office visit on June 12. 2. Troponin elevation Cardiology is following with medical management per their recommendations. 3. Self-reported CLAUDIO, not currently on nocturnal PAP therapy It was explained to the patient that upon her follow-up office visit, we can attempt to obtain medical records from Dr. Partida regarding her last polysomnogram. If she is agreeable, she will be referred to undergo a re-titration study with initiation of nocturnal Pap therapy as indicated. This note was generated with [employer] dictation software. It may contain incorrect words, spelling, and punctuation that were not noted in checking the note before signing. Code Visit Inpatient E&M: 63043 Subs Hosp L2
[2017-06-08] MEDS: Carvedilol 25 MG Tablet PO ×2 (09:15→22:36)
[2017-06-08] MEDS: Atropine Sulfate 1% 2 ml Bottle 1 DRP PO ×2 (09:15→22:38)
[2017-06-08] MEDS: Citalopram 20 MG Tablet PO (09:15)
[2017-06-08] MEDS: Aspirin 81 MG TAB.CHEW PO (09:15)
[2017-06-08] MEDS: Famotidine 20 MG Tablet PO (09:16)
[2017-06-08] MEDS: Timolol 0.5% 5ML OPTH.BTL 1 DRP LEFT EYE ×2 (09:16→22:44)
[2017-06-08] MEDS: guaiFENesin 600 MG Tablet PO ×2 (09:16→22:36)
[2017-06-08] MEDS: Ranolazine 500 MG Tablet PO ×2 (09:16→22:36)
[2017-06-08] MEDS: Clopidogrel Bisulfate 75 MG Tablet PO (09:16)
[2017-06-08] MEDS: Pyridoxine HCl 100 MG Tablet PO (09:17)
[2017-06-08] MEDS: 0.9% NaCl Peripheral Flush Adult/Peds IV ×2 (09:28→09:32)
[2017-06-08] MEDS: Calcium Acetate 667 MG Capsule PO ×2 (10:57→16:21)
[2017-06-08 11:06] LABS: Bedside Glucose 261 mg/dL (70-110)
[2017-06-08 11:10] LABS: Partial Thromboplast Time 32.3 Seconds (24.1-36.2)
--- NOTE | 2017-06-08 11:39 | PCM.PROGNOTE ---
<Bianka Hobbs - Last Filed: 06/08/17 12:24> Patient Problems: Active and Suspected Problems (Last Reviewed 05/14/17 @ 14:02 by Carmen Mckoy) Hypotension (Acute) COPD with acute exacerbation (Acute) NSTEMI (non-ST elevated myocardial infarction) (Acute) Subjective: Patient seen and examined. Resting in chair in no acute distress. States shortness of breath is improved. States she has an occasional dry cough. Denies fever, chills. Denies chest pain. Denies other complaints. - Physical Exam General: Alert, Oriented x3, Cooperative, No apparent distress HEENT: Atraumatic, PERRLA, EOMI, Normocephalic Neck: Supple, No JVD, Negative Carotid Bruits Lungs: Clear to auscultation, Diminished Cardiovascular: Regular rate, Regular Rhythm, Normal S1, Normal S2, No murmurs Abdomen: Bowel Sounds Present, Soft, Non Tender, Non-Distended, Obese Extremities: No clubbing, No cyanosis, No edema, Capillary Refill Less than 3 Seconds Skin: No rashes, No breakdown Musculoskeletal: No Tenderness to Palpation of Joints or Extremities Neurological: Cranial nerves II-XII grossly intact, Neuro grossly intact Psych/Mental Status: Normal Affect, Appropriate Vital Signs Temp Pulse Resp BP Pulse Ox 98.3 F 76 14 125/93 H 99 06/08/17 09:21 06/08/17 09:21 06/08/17 09:21 06/08/17 09:21 06/08/17 09:21 Oxygen Flow Rate 2 Oxygen Delivery Method Nasal Cannula Weight: 91.7 kg Body Mass Index (BMI) 38.6 Intake and Output for Last 24 Hours 06/06/17 06/07/17 06/08/17 23:59 23:59 23:59 Intake Total 720 / 720 68 / 68 Output Total 500 / 500 Balance 220 / 220 68 / 68 Microbiology Past 72 Hours 06/07/17 07:30 Respiratory Panel (PCR) - Final Mucosa - Nose Laboratory Tests Past 24 Hrs 06/07/17 06/07/17 06/07/17 12:10 23:15 23:15 WBC RBC Hgb Hct MCV MCH MCHC RDW RDW Differential Plt Count MPV PT 14.7 INR 1.2 APTT 30.4 Sodium Potassium Chloride Carbon Dioxide Anion Gap BUN Creatinine Estim Creat Clear Calc Est GFR (MDRD) Af Amer Est GFR (MDRD) Non-Af BUN/Creatinine Ratio Glucose Calcium Troponin I 0.89 H* 06/07/17 06/08/17 06/08/17 23:15 05:40 05:40 WBC 12.3 H 13.6 H RBC 2.85 L 2.92 L Hgb 8.7 L 9.0 L Hct 27.2 L 28.3 L MCV 95.4 96.9 MCH 30.5 30.8 MCHC 32.0 31.8 L RDW 17.3 H 16.8 H RDW Differential 60.7 H 57.1 H Plt Count 319 328 MPV 9.1 10.0 PT INR APTT Sodium 133 L Potassium 3.7 Chloride 94 L Carbon Dioxide 27.0 Anion Gap 12 BUN 37 H Creatinine 3.50 H Estim Creat Clear Calc 13.38 Est GFR (MDRD) Af Amer 17 L Est GFR (MDRD) Non-Af 14 L BUN/Creatinine Ratio 10.6 Glucose 276 H Calcium 8.8 Troponin I 06/08/17 06/08/17 06/08/17 05:40 05:40 10:40 WBC RBC Hgb Hct MCV MCH MCHC RDW RDW Differential Plt Count MPV PT 15.4 H INR 1.3 APTT 199.5 H* 32.3 Sodium Potassium Chloride Carbon Dioxide Anion Gap BUN Creatinine Estim Creat Clear Calc Est GFR (MDRD) Af Amer Est GFR (MDRD) Non-Af BUN/Creatinine Ratio Glucose Calcium Troponin I 1.33 H* POC Glucose 06/08/17 06/08/17 06/07/17 10:56 06:59 21:11 POC Glucose 261 H 278 H 366 H 06/07/17 06/07/17 16:54 11:59 POC Glucose 299 H 375 H Assessment/Plan Active and Suspected Problems (Last Reviewed 05/14/17 @ 14:02 by Carmen Mckoy) Hypotension (Acute) COPD with acute exacerbation (Acute) NSTEMI (non-ST elevated myocardial infarction) (Acute) Patient is a 56-year-old female admitted 06/07/17 due to shortness of breath. Her past medical history includes COPD, obstructive sleep apnea, hyperlipidemia, hypertension, coronary artery disease status post coronary artery bypass graft ?3, chronic diastolic CHF, end-stage renal disease on hemodialysis, anemia of chronic disease, type 2 diabetes mellitus, morbid obesity. 1. Acute COPD exacerbation with acute hypoxia-mild. Shortness of breath improved. No wheezing. Switch to oral prednisone. Continue albuterol and DuoNeb aerosols. Respiratory panel negative. Patient is afebrile. Wean oxygen as tolerated to maintain O2 at or above 90%. Oxygen saturation currently 99% on 2 L. Patient will need walking pulse ox prior to discharge. 2. Indeterminate troponin with EKG changes-troponin 0.36, 0.62, 0.89, 1.33. EKG with T-wave inversions and ST depression. This is more pronounced compared to prior EKG. Patient denies current chest pain although states she has had intermittent chest pain prior to admission. Cardiology consulted. Patient follows with Dr. Huang. Patient had cardiac catheterization January 2016 which showed severe two-vessel coronary artery disease, nonobstructive disease of the distal right coronary artery. Continued medical management was recommended at that time. Cardiology suspecting demand ischemia secondary to acute COPD exacerbation/hypoxia. Continue aspirin, Plavix, statin, nitrates, beta-blockers, ranexa. Cardiology discussing possible cardiac catheterization in the near future. Repeat echocardiogram pending. 3. Coronary artery disease status post CABG ?3-continue aspirin, statin, Plavix, beta-ivy. 4. End-stage renal disease-on hemodialysis. Has left forearm AV fistula. ,,SUN schedule. Follows with Dr. Rollins who was consulted. Continue dialysis regimen. 5. Obstructive sleep apnea- previously wore CPAP which she has not been compliant with. She previously followed with Dr. Partida. Plans on establishing with Dr. Urbina in which she has an appointment 06/12/2017. Recommend continued use of CPAP. 5. Chronic diastolic CHF-no signs of acute exacerbation. Chest x-ray without signs of CHF. Lasix regimen on hold. Echocardiogram 2015 showed an estimated ejection fraction of 65%, stage III diastolic dysfunction, mild to moderate tricuspid insufficiency. Repeat echocardiogram pending. 6. Type 2 diabetes [id number] before meals at bedtime. Sliding scale insulin and home Levemir regimen. Check hemoglobin A1c. 7. Hyperlipidemia-continue statin. 8. Hypertension-blood pressure hypotensive on admission. Home antihypertensives on hold. Continue to monitor. 9. AOCD-stable, monitor CBC. 10. Morbid obesity-encouraged diet and lifestyle modifications. Nutrition/dietitian consult. DVT prophylaxis-heparin subcu. This patient was seen by MAU Rose under the supervision of Dr. Estrella. <Dixon Estrella - Last Filed: 06/08/17 15:40> - Physical Exam General: Alert, Cooperative, No apparent distress HEENT: Atraumatic, Normocephalic Lungs: Clear to auscultation, Normal air movement, No rhonchi, No wheeze Cardiovascular: Regular rate, Regular Rhythm, Normal S1, Normal S2 Abdomen: Bowel Sounds Present, Soft, Non Tender, Non-Distended, No Hepato-splenomegaly Extremities: No clubbing, No cyanosis, No edema Skin: No rashes, No breakdown Psych/Mental Status: Normal Affect, Appropriate Vital Signs Temp Pulse Resp BP Pulse Ox 36.8 C 69 14 106/52 L 97 06/08/17 14:10 06/08/17 14:10 06/08/17 14:10 06/08/17 14:10 06/08/17 14:10 Oxygen Flow Rate 2 Oxygen Delivery Method Room Air Weight: 91.7 kg Body Mass Index (BMI) 38.6 Intake and Output for Last 24 Hours 06/06/17 06/07/17 06/08/17 23:59 23:59 23:59 Intake Total 720 / 720 428 / 428 Output Total 500 / 500 Balance 220 / 220 428 / 428 Microbiology Past 72 Hours 06/07/17 07:30 Respiratory Panel (PCR) - Final Mucosa - Nose Laboratory Tests Past 24 Hrs 06/07/17 06/07/17 06/07/17 23:15 23:15 23:15 WBC 12.3 H RBC 2.85 L Hgb 8.7 L Hct 27.2 L MCV 95.4 MCH 30.5 MCHC 32.0 RDW 17.3 H RDW Differential 60.7 H Plt Count 319 MPV 9.1 PT 14.7 INR 1.2 APTT 30.4 Sodium Potassium Chloride Carbon Dioxide Anion Gap BUN Creatinine Estim Creat Clear Calc Est GFR (MDRD) Af Amer Est GFR (MDRD) Non-Af BUN/Creatinine Ratio Glucose Hemoglobin A1c Calcium Troponin I 06/08/17 06/08/17 06/08/17 05:40 05:40 05:40 WBC 13.6 H RBC 2.92 L Hgb 9.0 L Hct 28.3 L MCV 96.9 MCH 30.8 MCHC 31.8 L RDW 16.8 H RDW Differential 57.1 H Plt Count 328 MPV 10.0 PT 15.4 H INR 1.3 APTT 199.5 H* Sodium 133 L Potassium 3.7 Chloride 94 L Carbon Dioxide 27.0 Anion Gap 12 BUN 37 H Creatinine 3.50 H Estim Creat Clear Calc 13.38 Est GFR (MDRD) Af Amer 17 L Est GFR (MDRD) Non-Af 14 L BUN/Creatinine Ratio 10.6 Glucose 276 H Hemoglobin A1c Calcium 8.8 Troponin I 06/08/17 06/08/17 06/08/17 05:40 05:40 10:40 WBC RBC Hgb Hct MCV MCH MCHC RDW RDW Differential Plt Count MPV PT INR APTT 32.3 Sodium Potassium Chloride Carbon Dioxide Anion Gap BUN Creatinine Estim Creat Clear Calc Est GFR (MDRD) Af Amer Est GFR (MDRD) Non-Af BUN/Creatinine Ratio Glucose Hemoglobin A1c 10.3 H Calcium Troponin I 1.33 H* POC Glucose 06/08/17 06/08/17 06/07/17 10:56 06:59 21:11 POC Glucose 261 H 278 H 366 H 06/07/17 16:54 POC Glucose 299 H Assessment/Plan Pt seen and examined independently. i agree with the above note by the [employer]. 1. Acute exacerbation of COPD: Continue with bronchodilators and steroids. Pulmonary on consultation. wean steroid to prednisone 2. Hypotension Probably related with hypovolemia which I did respond probably with IV fluids. Continue to monitor and will eventually reintroduce her antihypertensives as her pressure allows. resolved 3. NSTEMI Certainly, given the patient is end-stage renal disease, her levels are going to be skewed upwards but previously they had been normal. Patient was having some chest pain and still does to a certain extent. Cardiology is on consult who will be evaluating her prior cath results. Continue with medical management for now. may be a type 2 event pt declining [facility] at this time. 4. End-stage renal disease Nephrology on consult to facilitate dialysis. 5. DVT prophylaxis with subcu heparin. Given the patient's medical complexity, watch the patient another 24 hours before she can be discharged. hopefully, she can be discharged to home 06/09. Code Visit Inpatient E&M: 07889 Subs Hosp L2
--- NOTE | 2017-06-08 11:49 | PCM.PN.REN ---
Patient Problems: Active and Suspected Problems (Last Reviewed 05/14/17 @ 14:02 by Carmen Mckoy) Chest pain (Acute) Subjective: denies chest pain, SOB, edema. Heparin drip discontinued. Dialyzed yesterday without further CP. - Physical Exam General: Alert, Oriented x3, Cooperative, No apparent distress Lungs: Clear to auscultation Cardiovascular: Regular rate Abdomen: Bowel Sounds Present, Soft, Non Tender, Non-Distended Extremities: No edema, - - AVF left forearm Skin: No rashes Musculoskeletal: No Muscle Wasting Psych/Mental Status: Normal Affect, Alert and oriented to time, place, person, mood and affect Vital Signs Temp Pulse Resp BP Pulse Ox 98.3 F 70 14 125/93 H 99 06/08/17 09:21 06/08/17 11:00 06/08/17 09:21 06/08/17 09:21 06/08/17 09:21 Oxygen Flow Rate 2 Oxygen Delivery Method Nasal Cannula Weight: 91.7 kg Body Mass Index (BMI) 38.6 Intake and Output for Last 24 Hours 06/06/17 06/07/17 06/08/17 23:59 23:59 23:59 Intake Total 720 / 720 68 / 68 Output Total 500 / 500 Balance 220 / 220 68 / 68 Microbiology Past 72 Hours 06/07/17 07:30 Respiratory Panel (PCR) - Final Mucosa - Nose Laboratory Tests Past 24 Hrs 06/07/17 06/07/17 06/07/17 12:10 23:15 23:15 WBC RBC Hgb Hct MCV MCH MCHC RDW RDW Differential Plt Count MPV PT 14.7 INR 1.2 APTT 30.4 Sodium Potassium Chloride Carbon Dioxide Anion Gap BUN Creatinine Estim Creat Clear Calc Est GFR (MDRD) Af Amer Est GFR (MDRD) Non-Af BUN/Creatinine Ratio Glucose Calcium Troponin I 0.89 H* 06/07/17 06/08/17 06/08/17 23:15 05:40 05:40 WBC 12.3 H 13.6 H RBC 2.85 L 2.92 L Hgb 8.7 L 9.0 L Hct 27.2 L 28.3 L MCV 95.4 96.9 MCH 30.5 30.8 MCHC 32.0 31.8 L RDW 17.3 H 16.8 H RDW Differential 60.7 H 57.1 H Plt Count 319 328 MPV 9.1 10.0 PT INR APTT Sodium 133 L Potassium 3.7 Chloride 94 L Carbon Dioxide 27.0 Anion Gap 12 BUN 37 H Creatinine 3.50 H Estim Creat Clear Calc 13.38 Est GFR (MDRD) Af Amer 17 L Est GFR (MDRD) Non-Af 14 L BUN/Creatinine Ratio 10.6 Glucose 276 H Calcium 8.8 Troponin I 06/08/17 06/08/17 06/08/17 05:40 05:40 10:40 WBC RBC Hgb Hct MCV MCH MCHC RDW RDW Differential Plt Count MPV PT 15.4 H INR 1.3 APTT 199.5 H* 32.3 Sodium Potassium Chloride Carbon Dioxide Anion Gap BUN Creatinine Estim Creat Clear Calc Est GFR (MDRD) Af Amer Est GFR (MDRD) Non-Af BUN/Creatinine Ratio Glucose Calcium Troponin I 1.33 H* POC Glucose 06/08/17 06/08/17 06/07/17 10:56 06:59 21:11 POC Glucose 261 H 278 H 366 H 06/07/17 06/07/17 16:54 11:59 POC Glucose 299 H 375 H Assessment/Plan Active and Suspected Problems (Last Reviewed 05/14/17 @ 14:02 by Carmen Mckoy) Chest pain (Acute) 1. ESRD HD TTS schedule 2. Chest pain with +troponins. Hx CAD CABG. Cardiology consulted, possible need for heart cath for + trop level 3. Low grade fever with recent URI. Copd exacerbation on steroids 4. Anemia hgb low, MORGAN therapy with HD 5. DM2 elevated sugars on steroids 6. HTN stable
--- NOTE | 2017-06-08 12:19 | PCM.PN.CARD ---
Subjectve: Patient had chest pain last night. Resolved overnight. Presently asymptomatic Objective: Vital Signs Temp Pulse Resp BP Pulse Ox 98.3 F 70 14 125/93 H 99 06/08/17 09:21 06/08/17 11:00 06/08/17 09:21 06/08/17 09:21 06/08/17 09:21 Oxygen Flow Rate 2 Oxygen Delivery Method Nasal Cannula Weight: 91.7 kg Body Mass Index (BMI) 38.6 Intake and Output for Last 24 Hours 06/06/17 06/07/17 06/08/17 23:59 23:59 23:59 Intake Total 720 / 720 428 / 428 Output Total 500 / 500 Balance 220 / 220 428 / 428 General: Healthy Appearing, Awake, Alert, Oriented x 3 HEENT: Atraumatic Oral: Moist Mucosa Lungs: Clear to auscultation Cardiovascular: Regular Rhythm, Normal S1, Normal S2 Abdomen: Bowel Sounds Present, Soft Extremities: No edema Neurological: No Focal Motor or Sensory Deficit Psych/Mental Status: Appropriate 06/07/17 12:10: Troponin I 0.89 H* 06/07/17 23:15: APTT 30.4 06/07/17 23:15: PT 14.7, INR 1.2 06/07/17 23:15: WBC 12.3 H, RBC 2.85 L, Hgb 8.7 L, Hct 27.2 L, MCV 95.4, MCH 30.5, MCHC 32.0, RDW 17.3 H, RDW Differential 60.7 H, Plt Count 319, MPV 9.1 06/08/17 05:40: WBC 13.6 H, RBC 2.92 L, Hgb 9.0 L, Hct 28.3 L, MCV 96.9, MCH 30.8, MCHC 31.8 L, RDW 16.8 H, RDW Differential 57.1 H, Plt Count 328, MPV 10.0 06/08/17 05:40: Sodium 133 L, Potassium 3.7, Chloride 94 L, Carbon Dioxide 27.0, Anion Gap 12, BUN 37 H, Creatinine 3.50 H, Est GFR (MDRD) Af Amer 17 L, Est GFR (MDRD) Non-Af 14 L, BUN/Creatinine Ratio 10.6, Glucose 276 H, Calcium 8.8 02/16/18 05:40: PT 15.4 H, INR 1.3, APTT 199.5 H* 06/08/17 05:40: Troponin I 1.33 H* 06/08/17 10:40: APTT 32.3 Rhythm: Normal sinus EKG: ECHO: Stress Test: Cardiac Cath: PCI: CT Surgery: Holter monitor: EPS: PPM: CXR: Chest CT Scan: Assessment/Plan 1. Non-ST elevation myocardial infarction. Patient had recurrent chest discomfort last night. Even though it is resolved presently, I offered the patient cardiac catheterization with coronary angiography and possible revascularization. She however is not interested in pursuing the invasive route at present. Continue medical treatment. I did certified drug counselor her that if she had recurrent chest pain, then she should reconsider her decision. She understands and agrees. 2. COPD exacerbation with hypoxia. Manage as per internal medicine 3. End-stage renal disease on hemodialysis 4. Diabetes mellitus 5. Dyslipidemia 6. History of hypertension 7. Anemia of chronic disease
--- NOTE | 2017-06-08 12:22 | PN.CARD_ITS ---
Subjectve: Patient had chest pain last night. Resolved overnight. Presently asymptomatic Objective: Vital Signs Temp Pulse Resp BP Pulse Ox 98.3 F 70 14 125/93 H 99 06/08/17 09:21 06/08/17 11:00 06/08/17 09:21 06/08/17 09:21 06/08/17 09:21 Oxygen Flow Rate 2 Oxygen Delivery Method Nasal Cannula Weight: 91.7 kg Body Mass Index (BMI) 38.6 Intake and Output for Last 24 Hours 06/06/17 06/07/17 06/08/17 23:59 23:59 23:59 Intake Total 720 / 720 428 / 428 Output Total 500 / 500 Balance 220 / 220 428 / 428 General: Healthy Appearing, Awake, Alert, Oriented x 3 HEENT: Atraumatic Oral: Moist Mucosa Lungs: Clear to auscultation Cardiovascular: Regular Rhythm, Normal S1, Normal S2 Abdomen: Bowel Sounds Present, Soft Extremities: No edema Neurological: No Focal Motor or Sensory Deficit Psych/Mental Status: Appropriate 06/07/17 12:10: Troponin I 0.89 H* 06/07/17 23:15: APTT 30.4 06/07/17 23:15: PT 14.7, INR 1.2 06/07/17 23:15: WBC 12.3 H, RBC 2.85 L, Hgb 8.7 L, Hct 27.2 L, MCV 95.4, MCH 30.5, MCHC 32.0, RDW 17.3 H, RDW Differential 60.7 H, Plt Count 319, MPV 9.1 06/08/17 05:40: WBC 13.6 H, RBC 2.92 L, Hgb 9.0 L, Hct 28.3 L, MCV 96.9, MCH 30.8, MCHC 31.8 L, RDW 16.8 H, RDW Differential 57.1 H, Plt Count 328, MPV 10.0 06/08/17 05:40: Sodium 133 L, Potassium 3.7, Chloride 94 L, Carbon Dioxide 27.0 , Anion Gap 12, BUN 37 H, Creatinine 3.50 H, Est GFR (MDRD) Af Amer 17 L, Est GFR (MDRD) Non-Af 14 L, BUN/Creatinine Ratio 10.6, Glucose 276 H, Calcium 8.8 02/16/18 05:40: PT 15.4 H, INR 1.3, APTT 199.5 H* 06/08/17 05:40: Troponin I 1.33 H* 06/08/17 10:40: APTT 32.3 Rhythm: Normal sinus EKG: ECHO: Stress Test: Cardiac Cath: PCI: CT Surgery: Holter monitor: EPS: PPM: CXR: Chest CT Scan: Assessment/Plan 1. Non-ST elevation myocardial infarction. Patient had recurrent chest discomfort last night. Even though it is resolved presently, I offered the patient cardiac catheterization with coronary angiography and possible revascularization. She however is not interested in pursuing the invasive route at present. Continue medical treatment. I did summer camp counselor her that if she had recurrent chest pain, then she should reconsider her decision. She understands and agrees. 2. COPD exacerbation with hypoxia. Manage as per internal medicine 3. End-stage renal disease on hemodialysis 4. Diabetes mellitus 5. Dyslipidemia 6. History of hypertension 7. Anemia of chronic disease
--- NOTE | 2017-06-08 12:22 | PN_ITS ---
<Bianka Hobbs - Last Filed: 06/08/17 12:24> Patient Problems: Active and Suspected Problems (Last Reviewed 05/14/17 @ 14:02 by Carmen Mckoy) Hypotension (Acute) COPD with acute exacerbation (Acute) NSTEMI (non-ST elevated myocardial infarction) (Acute) Subjective: Patient seen and examined. Resting in chair in no acute distress. States shortness of breath is improved. States she has an occasional dry cough. Denies fever, chills. Denies chest pain. Denies other complaints. - Physical Exam General: Alert, Oriented x3, Cooperative, No apparent distress HEENT: Atraumatic, PERRLA, EOMI, Normocephalic Neck: Supple, No JVD, Negative Carotid Bruits Lungs: Clear to auscultation, Diminished Cardiovascular: Regular rate, Regular Rhythm, Normal S1, Normal S2, No murmurs Abdomen: Bowel Sounds Present, Soft, Non Tender, Non-Distended, Obese Extremities: No clubbing, No cyanosis, No edema, Capillary Refill Less than 3 Seconds Skin: No rashes, No breakdown Musculoskeletal: No Tenderness to Palpation of Joints or Extremities Neurological: Cranial nerves II-XII grossly intact, Neuro grossly intact Psych/Mental Status: Normal Affect, Appropriate Vital Signs Temp Pulse Resp BP Pulse Ox 98.3 F 76 14 125/93 H 99 06/08/17 09:21 06/08/17 09:21 06/08/17 09:21 06/08/17 09:21 06/08/17 09:21 Oxygen Flow Rate 2 Oxygen Delivery Method Nasal Cannula Weight: 91.7 kg Body Mass Index (BMI) 38.6 Intake and Output for Last 24 Hours 06/06/17 06/07/17 06/08/17 23:59 23:59 23:59 Intake Total 720 / 720 68 / 68 Output Total 500 / 500 Balance 220 / 220 68 / 68 Microbiology Past 72 Hours 06/07/17 07:30 Respiratory Panel (PCR) - Final Mucosa - Nose Laboratory Tests Past 24 Hrs 06/07/17 06/07/17 06/07/17 12:10 23:15 23:15 WBC RBC Hgb Hct MCV MCH MCHC RDW RDW Differential Plt Count MPV PT 14.7 INR 1.2 APTT 30.4 Sodium Potassium Chloride Carbon Dioxide Anion Gap BUN Creatinine Estim Creat Clear Calc Est GFR (MDRD) Af Amer Est GFR (MDRD) Non-Af BUN/Creatinine Ratio Glucose Calcium Troponin I 0.89 H* 06/07/17 06/08/17 06/08/17 23:15 05:40 05:40 WBC 12.3 H 13.6 H RBC 2.85 L 2.92 L Hgb 8.7 L 9.0 L Hct 27.2 L 28.3 L MCV 95.4 96.9 MCH 30.5 30.8 MCHC 32.0 31.8 L RDW 17.3 H 16.8 H RDW Differential 60.7 H 57.1 H Plt Count 319 328 MPV 9.1 10.0 PT INR APTT Sodium 133 L Potassium 3.7 Chloride 94 L Carbon Dioxide 27.0 Anion Gap 12 BUN 37 H Creatinine 3.50 H Estim Creat Clear Calc 13.38 Est GFR (MDRD) Af Amer 17 L Est GFR (MDRD) Non-Af 14 L BUN/Creatinine Ratio 10.6 Glucose 276 H Calcium 8.8 Troponin I 06/08/17 06/08/17 06/08/17 05:40 05:40 10:40 WBC RBC Hgb Hct MCV MCH MCHC RDW RDW Differential Plt Count MPV PT 15.4 H INR 1.3 APTT 199.5 H* 32.3 Sodium Potassium Chloride Carbon Dioxide Anion Gap BUN Creatinine Estim Creat Clear Calc Est GFR (MDRD) Af Amer Est GFR (MDRD) Non-Af BUN/Creatinine Ratio Glucose Calcium Troponin I 1.33 H* POC Glucose 06/08/17 06/08/17 06/07/17 10:56 06:59 21:11 POC Glucose 261 H 278 H 366 H 06/07/17 06/07/17 16:54 11:59 POC Glucose 299 H 375 H Assessment/Plan Active and Suspected Problems (Last Reviewed 05/14/17 @ 14:02 by Carmen Mckoy) Hypotension (Acute) COPD with acute exacerbation (Acute) NSTEMI (non-ST elevated myocardial infarction) (Acute) Patient is a 56-year-old female admitted 06/07/17 due to shortness of breath. Her past medical history includes COPD, obstructive sleep apnea, hyperlipidemia , hypertension, coronary artery disease status post coronary artery bypass graft ?3, chronic diastolic CHF, end-stage renal disease on hemodialysis, anemia of chronic disease, type 2 diabetes mellitus, morbid obesity. 1. Acute COPD exacerbation with acute hypoxia-mild. Shortness of breath improved. No wheezing. Switch to oral prednisone. Continue albuterol and DuoNeb aerosols. Respiratory panel negative. Patient is afebrile. Wean oxygen as tolerated to maintain O2 at or above 90%. Oxygen saturation currently 99% on 2 L. Patient will need walking pulse ox prior to discharge. 2. Indeterminate troponin with EKG changes-troponin 0.36, 0.62, 0.89, 1.33. EKG with T-wave inversions and ST depression. This is more pronounced compared to prior EKG. Patient denies current chest pain although states she has had intermittent chest pain prior to admission. Cardiology consulted. Patient follows with Dr. Huang. Patient had cardiac catheterization January 2016 which showed severe two-vessel coronary artery disease, nonobstructive disease of the distal right coronary artery. Continued medical management was recommended at that time. Cardiology suspecting demand ischemia secondary to acute COPD exacerbation/hypoxia. Continue aspirin, Plavix, statin, nitrates, beta-blockers, ranexa. Cardiology discussing possible cardiac catheterization in the near future. Repeat echocardiogram pending. 3. Coronary artery disease status post CABG ?3-continue aspirin, statin, Plavix , beta-ivy. 4. End-stage renal disease-on hemodialysis. Has left forearm AV fistula. ,, SUN schedule. Follows with Dr. Rollins who was consulted. Continue dialysis regimen. 5. Obstructive sleep apnea- previously wore CPAP which she has not been compliant with. She previously followed with Dr. Partida. Plans on establishing with Dr. Urbina in which she has an appointment 06/12/2017. Recommend continued use of CPAP. 5. Chronic diastolic CHF-no signs of acute exacerbation. Chest x-ray without signs of CHF. Lasix regimen on hold. Echocardiogram 2015 showed an estimated ejection fraction of 65%, stage III diastolic dysfunction, mild to moderate tricuspid insufficiency. Repeat echocardiogram pending. 6. Type 2 diabetes [id number] before meals at bedtime. Sliding scale insulin and home Levemir regimen. Check hemoglobin A1c. 7. Hyperlipidemia-continue statin. 8. Hypertension-blood pressure hypotensive on admission. Home antihypertensives on hold. Continue to monitor. 9. AOCD-stable, monitor CBC. 10. Morbid obesity-encouraged diet and lifestyle modifications. Nutrition/ dietitian consult. DVT prophylaxis-heparin subcu. This patient was seen by MAU Rose under the supervision of Dr. Estrella. <Dixon Estrella - Last Filed: 06/08/17 15:40> - Physical Exam General: Alert, Cooperative, No apparent distress HEENT: Atraumatic, Normocephalic Lungs: Clear to auscultation, Normal air movement, No rhonchi, No wheeze Cardiovascular: Regular rate, Regular Rhythm, Normal S1, Normal S2 Abdomen: Bowel Sounds Present, Soft, Non Tender, Non-Distended, No Hepato- splenomegaly Extremities: No clubbing, No cyanosis, No edema Skin: No rashes, No breakdown Psych/Mental Status: Normal Affect, Appropriate Vital Signs Temp Pulse Resp BP Pulse Ox 36.8 C 69 14 106/52 L 97 06/08/17 14:10 06/08/17 14:10 06/08/17 14:10 06/08/17 14:10 06/08/17 14:10 Oxygen Flow Rate 2 Oxygen Delivery Method Room Air Weight: 91.7 kg Body Mass Index (BMI) 38.6 Intake and Output for Last 24 Hours 06/06/17 06/07/17 06/08/17 23:59 23:59 23:59 Intake Total 720 / 720 428 / 428 Output Total 500 / 500 Balance 220 / 220 428 / 428 Microbiology Past 72 Hours 06/07/17 07:30 Respiratory Panel (PCR) - Final Mucosa - Nose Laboratory Tests Past 24 Hrs 06/07/17 06/07/17 06/07/17 23:15 23:15 23:15 WBC 12.3 H RBC 2.85 L Hgb 8.7 L Hct 27.2 L MCV 95.4 MCH 30.5 MCHC 32.0 RDW 17.3 H RDW Differential 60.7 H Plt Count 319 MPV 9.1 PT 14.7 INR 1.2 APTT 30.4 Sodium Potassium Chloride Carbon Dioxide Anion Gap BUN Creatinine Estim Creat Clear Calc Est GFR (MDRD) Af Amer Est GFR (MDRD) Non-Af BUN/Creatinine Ratio Glucose Hemoglobin A1c Calcium Troponin I 06/08/17 06/08/17 06/08/17 05:40 05:40 05:40 WBC 13.6 H RBC 2.92 L Hgb 9.0 L Hct 28.3 L MCV 96.9 MCH 30.8 MCHC 31.8 L RDW 16.8 H RDW Differential 57.1 H Plt Count 328 MPV 10.0 PT 15.4 H INR 1.3 APTT 199.5 H* Sodium 133 L Potassium 3.7 Chloride 94 L Carbon Dioxide 27.0 Anion Gap 12 BUN 37 H Creatinine 3.50 H Estim Creat Clear Calc 13.38 Est GFR (MDRD) Af Amer 17 L Est GFR (MDRD) Non-Af 14 L BUN/Creatinine Ratio 10.6 Glucose 276 H Hemoglobin A1c Calcium 8.8 Troponin I 06/08/17 06/08/17 06/08/17 05:40 05:40 10:40 WBC RBC Hgb Hct MCV MCH MCHC RDW RDW Differential Plt Count MPV PT INR APTT 32.3 Sodium Potassium Chloride Carbon Dioxide Anion Gap BUN Creatinine Estim Creat Clear Calc Est GFR (MDRD) Af Amer Est GFR (MDRD) Non-Af BUN/Creatinine Ratio Glucose Hemoglobin A1c 10.3 H Calcium Troponin I 1.33 H* POC Glucose 06/08/17 06/08/17 06/07/17 10:56 06:59 21:11 POC Glucose 261 H 278 H 366 H 06/07/17 16:54 POC Glucose 299 H Assessment/Plan Pt seen and examined independently. i agree with the above note by the [employer]AN[employer]. 1. Acute exacerbation of COPD: * Continue with bronchodilators and steroids. Pulmonary on consultation. * wean steroid to prednisone 2. Hypotension * Probably related with hypovolemia which I did respond probably with IV fluids. Continue to monitor and will eventually reintroduce her antihypertensives as her pressure allows. * resolved 3. NSTEMI * Certainly, given the patient is end-stage renal disease, her levels are going to be skewed upwards but previously they had been normal. Patient was having some chest pain and still does to a certain extent. Cardiology is on consult who will be evaluating her prior cath results. Continue with medical management for now. * may be a type 2 event * pt declining LHC at this time. 4. End-stage renal disease * Nephrology on consult to facilitate dialysis. 5. DVT prophylaxis with subcu heparin. Given the patient's medical complexity, watch the patient another 24 hours before she can be discharged. hopefully, she can be discharged to home 06/09. Code Visit Inpatient E&M: 04161 Subs Hosp L2
[2017-06-08 13:53] LABS: Hemoglobin A1c 10.3 % (4.2-6.3)
[2017-06-08 16:31] LABS: Bedside Glucose 247 mg/dL (70-110)
--- NOTE | 2017-06-08 22:33 | EKG12_ITS ---
Test Reason : CP Blood Pressure : / mmHG Vent. Rate : 075 BPM Atrial Rate : 075 BPM P-R Int : 162 ms QRS Dur : 096 ms QT Int : 418 ms P-R-T Axes : 063 -57 154 degrees QTc Int : 466 ms Normal sinus rhythm Left axis deviation Marked ST abnormality, possible lateral subendocardial injury Abnormal ECG When compared with ECG of 08-JUN-2017 05:19, MANUAL COMPARISON REQUIRED, DATA IS UNCONFIRMED Confirmed by OLINDA MUSTAFA ([id number]), editor map MADDY STERLING ([id number]) on 06/14/2017 3:05:16 PM Referred By: JAMI Confirmed By:OLINDA MUSTAFA
[2017-06-08] MEDS: Gabapentin 300 MG Capsule PO (22:37)
[2017-06-08] MEDS: Atorvastatin Calcium 80 MG Tablet PO (22:38)
[2017-06-08] MEDS: Heparin Injection 5,000 UNITS/ML Syringe 5000 UNITS SC (22:43)
[2017-06-08 23:16] LABS: Bedside Glucose 311 mg/dL (70-110)
[2017-06-09] VITALS (20 sets, daily range): BP systolic 105–135; BP diastolic 53–69; PULSE 64–88; RESP 14–20; TEMP 36.3–37; O2SAT 95–98
[2017-06-09] MEDS: Ipratropium/Albuterol Sulfate 3 ML AMPUL.NEB INHALATION ×5 (02:07→23:00)
[2017-06-09] MEDS: Nitroglycerin Oint 1 INCH PACKET TRANSDERM. ×3 (06:12→22:21)
[2017-06-09 06:56] LABS: Bedside Glucose 168 mg/dL (70-110)
--- NOTE | 2017-06-09 07:23 | PCM.PROGNOTE ---
Patient Problems: Active and Suspected Problems (Last Reviewed 05/14/17 @ 14:02 by Carmen Mckoy) NSTEMI (non-ST elevated myocardial infarction) (Acute) COPD with acute exacerbation (Acute) Hypotension (Acute) Subjective: The patient was seen and examined at the bedside this morning. Events from the last 24 hours have been reviewed. The patient is currently afebrile, hemodynamically stable and maintaining appropriate oxygen saturations on room air. The patient did experience chest pain overnight, which was concerning to her. Because of this, she is now wishing to proceed with cardiac catheterization. Objective: The patient's most recent lab work, culture data and imaging studies have all been personally reviewed. Respiratory viral panel was found to be negative. Initial plain film chest x-ray did reveal mild cardiomegaly without an acute infiltrative process. The patient's last surface echocardiogram completed in September 2016 revealed evidence of diastolic dysfunction with a preserved ejection fraction of 60%. - Physical Exam General: Alert, Oriented x3, Cooperative HEENT: Atraumatic, PERRLA, Normocephalic Oral: Moist Mucosa, No Gingival or Mucosal Lesions/ Ulcerations Neck: Supple, No Nodes, Trachea Midline Lungs: No rhonchi, No wheeze, No rales, Diminished Cardiovascular: Regular rate, Regular Rhythm, Normal S1, Normal S2, No murmurs Abdomen: Bowel Sounds Present, Soft, Non Tender Extremities: No clubbing, No cyanosis, No edema Skin: No rashes, No breakdown Musculoskeletal: No Tenderness to Palpation of Joints or Extremities Lymphatic: No Cervical, Supraclavicular, or Inguinal Adenopathy Neurological: Neuro grossly intact Psych/Mental Status: Normal Affect, Appropriate Vital Signs Temp Pulse Resp BP Pulse Ox 98 F 64 18 105/53 L 96 06/09/17 06:10 06/09/17 06:10 06/09/17 06:10 06/09/17 06:10 06/09/17 06:10 Oxygen Flow Rate 2 Oxygen Delivery Method Room Air Weight: 201 lb 11.567 oz Body Mass Index (BMI) 38.6 Intake and Output for Last 24 Hours 06/07/17 06/08/17 06/09/17 23:59 23:59 23:59 Intake Total 720 / 720 1148 / 1148 240 / 240 Output Total 500 / 500 Balance 220 / 220 1148 / 1148 240 / 240 Microbiology Past 72 Hours 06/07/17 07:30 Respiratory Panel (PCR) - Final Mucosa - Nose Laboratory Tests Past 24 Hrs 06/08/17 06/08/17 06/08/17 05:40 05:40 05:40 WBC RBC Hgb Hct MCV MCH MCHC RDW RDW Differential Plt Count APTT Sodium 133 L Potassium 3.7 Chloride 94 L Carbon Dioxide 27.0 Anion Gap 12 BUN 37 H Creatinine 3.50 H Estim Creat Clear Calc 13.38 Est GFR (MDRD) Af Amer 17 L Est GFR (MDRD) Non-Af 14 L BUN/Creatinine Ratio 10.6 Glucose 276 H Hemoglobin A1c 10.3 H Calcium 8.8 Troponin I 1.33 H* 06/08/17 06/09/17 06/09/17 10:40 06:32 06:32 WBC Pending RBC Pending Hgb Pending Hct Pending MCV Pending MCH Pending MCHC Pending RDW Pending RDW Differential Pending Plt Count Pending APTT 32.3 Sodium Pending Potassium Pending Chloride Pending Carbon Dioxide Pending Anion Gap Pending BUN Pending Creatinine Pending Estim Creat Clear Calc Est GFR (MDRD) Af Amer Pending Est GFR (MDRD) Non-Af Pending BUN/Creatinine Ratio Pending Glucose Pending Hemoglobin A1c Calcium Pending Troponin I POC Glucose 06/09/17 06/08/17 06/08/17 06:50 22:57 16:19 POC Glucose 168 H 311 H 247 H 06/08/17 10:56 POC Glucose 261 H Clinical Impression(s) from Imaging Studies Chest X-Ray 06/07/17 05:52 IMPRESSION: Moderate cardiomegaly. No pneumonia. No failure. No pleural effusions. Electronically Signed: Dimitrios Alexis, at 6:30 EST Tel , Service support , Assessment/Plan Active and Suspected Problems (Last Reviewed 05/14/17 @ 14:02 by Carmen Mckoy) NSTEMI (non-ST elevated myocardial infarction) (Acute) COPD with acute exacerbation (Acute) Hypotension (Acute) IMPRESSION/PLAN: 1. Questionable decompensated COPD There are no PFTs to confirm whether or not the patient truly has a fixed airway obstruction. Her shortness of breath may be secondary to COPD, without access any baseline inhalers on an outpatient basis. In addition, it also may be secondary to her underlying renal disease versus cardiac in origin. She does not appear to have an acute infectious process at play here. Her viral panel was negative. Her leukocytosis is likely the consequence of her recently administered corticosteroids. Would plan to wean her supplemental oxygen to maintain saturations at or above 90%. Perform walking oximetry prior to consideration for discharge from the hospital. Continue scheduled aerosol treatments as ordered. Would plan to DC steroids, as I do not feel the patient is experiencing an acute exacerbation. The patient has been advised to follow-up with me in the pulmonary medicine clinic at her scheduled office visit on June 12. PFT's can be obtained at that time. 2. Troponin elevation Cardiology is following with medical management per their recommendations. 3. Self-reported CLAUDIO, not currently on nocturnal PAP therapy It was explained to the patient that upon her follow-up office visit, we can attempt to obtain medical records from Dr. Partida regarding her last polysomnogram. If she is agreeable, she will be referred to undergo a re-titration study with initiation of nocturnal Pap therapy as indicated. This note was generated with [email or web address] dictation software. It may contain incorrect words, spelling, and punctuation that were not noted in checking the note before signing. Will sign off at this time. Please call with any questions. Code Visit Inpatient E&M: 08633 Subs Hosp L2
[2017-06-09 07:35] LABS: Hematocrit 27.8 % (37-47); Hemoglobin 8.9 g/dl (12.0-15.0); Mean Corpuscular Hgb 30.7 pg (27.0-32.0); Mean Corpuscular Volume 95.9 fL (81-99); Mean Platelet Vol. 9.8 fl (6.2-12.0); Platelet Count 348 K/mm3 (150-450); RBC Distribution Width CV 17.4 % (11.6-14.6); RBC Distribution Width SD 61.1 fl (35.1-43.9); White Blood Count 15.2 K/mm3 (4.4-11.0)
[2017-06-09 07:41] LABS: Scan Indicated on CBC? Y/N NO
[2017-06-09 07:51] LABS: Anion Gap 12 (5-15); BUN 66 mg/dL (7-18); BUN/Creat Ratio 12.6 RATIO (10-20); Calcium,Total 8.4 mg/dL (8.5-10.1); Chloride 93 mmol/L (98-107); Creatinine, Serum 5.25 mg/dL (0.55-1.02); EST Glomerular Filtration Rate 9 mL/min (>60); Est Glom Filt Rate - Afr Amer 11 mL/min (>60); Estimated Creatinine Clearance 8.92 ml/min; Glucose 166 mg/dL (74-106); Potassium 3.9 mmol/L (3.5-5.1); Sodium Level 132 mmol/L (136-145)
--- NOTE | 2017-06-09 11:20 | PCM.PN.HOSP ---
Patient Problems: Active and Suspected Problems (Last Reviewed 05/14/17 @ 14:02 by Carmen Mckoy) NSTEMI (non-ST elevated myocardial infarction) (Acute) COPD with acute exacerbation (Acute) Hypotension (Acute) Subjective: Patient is a 56-year-old female past medical history of CAD status post CABG, chronic diastolic heart failure, hypertension, hyperlipidemia, COPD, ESRD on hemodialysis, type 2 diabetes mellitus and morbid obesity. She Was admitted with a complaint of shortness of breath of one day's duration. She was found to have N STEMI but refused any intervention and preferred medical management. Nephrology is on board on account of ESRD. Seen and examined today. She still complains of chest pain and says she had a several times overnight. Chest pain was rated about 6/10 and was pressure-like. She denied any diaphoresis, any lightheadedness, any nausea vomiting. Due to the persistent chest pain, patient states she is now willing to have intervention and would want to have a cath. Review of systems otherwise negative. Vitals/I&O's: Vital Signs Temp Pulse Resp BP Pulse Ox 97.6 F L 68 16 123/60 H 96 06/09/17 09:04 06/09/17 11:00 06/09/17 09:04 06/09/17 09:04 06/09/17 09:05 Oxygen Flow Rate 2 Oxygen Delivery Method Room Air Weight: 201 lb 11.567 oz Body Mass Index (BMI) 38.6 Intake and Output for Last 24 Hours 06/07/17 06/08/17 06/09/17 23:59 23:59 23:59 Intake Total 720 / 720 1148 / 1148 240 / 240 Output Total 500 / 500 Balance 220 / 220 1148 / 1148 240 / 240 General: Alert, Oriented x3, Cooperative HEENT: Atraumatic, EOMI, Normocephalic Oral: Moist Mucosa Neck: Supple, No JVD, Negative Carotid Bruits Lungs: Normal air movement, - - Few coarse crackles bibasilarly. Cardiovascular: Regular rate, Regular Rhythm, Normal S1, Normal S2, No murmurs Abdomen: Bowel Sounds Present, Soft, Non Tender, Non-Distended, No Hepato-splenomegaly Extremities: No clubbing, No cyanosis, No edema, Capillary Refill Less than 3 Seconds, No Calf Tenderness Skin: No rashes, No breakdown, - - CABG scar Musculoskeletal: No Tenderness to Palpation of Joints or Extremities Lymphatic: No Cervical, Supraclavicular, or Inguinal Adenopathy Neurological: Cranial nerves II-XII grossly intact Psych/Mental Status: Normal Affect, Appropriate, Alert and oriented to time, place, person, mood and affect Microbiology Past 72 Hours 06/07/17 07:30 Mucosa - Nose Respiratory Panel (PCR) - Final Laboratory Results 06/08/17 05:40: Hemoglobin A1c 10.3 H 06/08/17 16:19: POC Glucose 247 H 06/08/17 22:57: POC Glucose 311 H 06/09/17 06:32: WBC 15.2 H, RBC 2.90 L, Hgb 8.9 L, Hct 27.8 L, MCV 95.9, MCH 30.7, MCHC 32.0, RDW 17.4 H, RDW Differential 61.1 H, Plt Count 348, MPV 9.8 06/09/17 06:32: Sodium 132 L, Potassium 3.9, Chloride 93 L, Carbon Dioxide 27.0, Anion Gap 12, BUN 66 H, Creatinine 5.25 H, Estim Creat Clear Calc 8.92, Est GFR (MDRD) Af Amer 11 L, Est GFR (MDRD) Non-Af 9 L, BUN/Creatinine Ratio 12.6, Glucose 166 H, Calcium 8.4 L 06/09/17 06:50: POC Glucose 168 H Current Medications Acetaminophen (Tylenol) 650 mg PO Q6H PRN PRN PRN Reason: Mild Pain (1-3)/Temp > 100.7 F Last Admin: 06/07/17 17:26 Dose: 650 mg Albuterol Sulfate (Ventolin Aerosols) 2.5 mg INHALATION Q2H PRN PRN PRN Reason: SHORTNESS OF BREATH Albuterol/Ipratropium (Duoneb) 3 ml INHALATION Q4H.RT [facility] Last Admin: 06/09/17 07:08 Dose: 3 ml Aspirin (Aspirin, Baby) 81 mg PO DAILY@0800 [facility] Last Admin: 06/08/17 09:15 Dose: 81 mg Atorvastatin Calcium (Lipitor) 80 mg PO QHS [facility] Last Admin: 06/08/17 22:38 Dose: 80 mg Atropine Sulfate (Atropisol) 1 drop PO BID [facility] Last Admin: 06/08/17 22:38 Dose: 1 drop Brimonidine Tartrate (Brimonidine 0.2% 5ml Bottle) 1 drop LEFT EYE TID [facility] Last Admin: 06/09/17 05:23 Dose: Not Given Calcium Acetate (Phoslo Gel Cap) 667 mg PO TIDCM [facility] Last Admin: 06/09/17 08:26 Dose: Not Given Carvedilol (Coreg) 25 mg PO BID [facility] Last Admin: 06/08/17 22:36 Dose: 25 mg Citalopram Hydrobromide (Celexa) 20 mg PO DAILY [facility] Last Admin: 06/08/17 09:15 Dose: 20 mg Clopidogrel Bisulfate (Plavix) 75 mg PO DAILY [facility] Last Admin: 06/08/17 09:16 Dose: 75 mg Ergocalciferol (Vitamin D) 50,000 unit PO [facility] Famotidine (Pepcid) 20 mg PO DAILY [facility] Last Admin: 06/08/17 09:16 Dose: 20 mg Gabapentin (Neurontin) 300 mg PO QHS [facility] Last Admin: 06/08/17 22:37 Dose: 300 mg Guaifenesin (Mucinex) 600 mg PO BID [facility] Last Admin: 06/08/17 22:36 Dose: 600 mg Heparin Sodium (Porcine) () 5,000 units SC BID [facility] Last Admin: 06/08/17 22:43 Dose: 5,000 units Heparin Sodium (Porcine) (Heparin Na) 0 unit IV UD PRN PRN Reason: Protocol Insulin Aspart (Novolog Flexpen (Bk)) 0 units SC TIDAC [facility] PRN Reason: Protocol Last Admin: 06/09/17 08:25 Dose: Not Given Insulin Detemir (Levemir (Bk)) 52 units SC DAILY [facility] Last Admin: 06/08/17 09:16 Dose: 52 u Magnesium Hydroxide (Milk Of Magnesia) 30 ml PO DAILY PRN PRN Reason: Constipation Multivitamins (Allbee W/C Caplet, Thera B Comp/C) [facility] Last Admin: 06/08/17 09:13 Dose: Not Given Nitroglycerin (Nitrobid) 1 inch TRANSDERM. Q8 [facility] Last Admin: 06/09/17 06:12 Dose: 1 inch Nutritional Formula (Lactose Free) (Ensure Enlive) 120 ml PO 4X/DAY [facility] Last Admin: 06/08/17 22:38 Dose: Not Given Ondansetron HCl (Zofran) 4 mg IV Q8H PRN PRN PRN Reason: NAUSEA Ondansetron HCl (Zofran) 8 mg PO Q6H PRN PRN Reason: NAUSEA Prednisone (Prednisone) 40 mg PO DAILY@0800 [facility] Pyridoxine HCl (Vitamin B-6) 100 mg PO DAILY [facility] Last Admin: 06/08/17 09:17 Dose: 100 mg Ranolazine (Ranexa) 500 mg PO BID [facility] Last Admin: 06/08/17 22:36 Dose: 500 mg Senna (Senokot) 1 tablet PO QHS PRN PRN Reason: Constipation Sodium Chloride () 5 - 30 ml IV UD PRN PRN Reason: SALINE FLUSH Last Admin: 06/08/17 09:32 Dose: 10 ml Timolol Maleate (Timoptic) 1 drop LEFT EYE BID [facility] Last Admin: 06/08/17 22:44 Dose: 1 drop Assessment/Plan Active and Suspected Problems (Last Reviewed 05/14/17 @ 14:02 by Carmen Mckoy) NSTEMI (non-ST elevated myocardial infarction) (Acute) COPD with acute exacerbation (Acute) Hypotension (Acute) 1. NSTEMI still has complaints of chest pain. cardiology is on board. Initially refused cardiac cath, so heparin drip was stopped. However patient is now willing to have cardiac cath due to persistent chest pain. per discussion with horseradish maker, will resume heparin drip. On Imdur, as needed sublingual nitro Continue to monitor. 2. Acute exacerbation of COPD: Resolving. Still has some coarse crackles in lower lung irby bilaterally. Pulmonary on board. Currently on p.o. prednisone and breathing treatments. Will monitor. 3. Hypotension: Resolved. Antihypertensives on hold due to hypotension which is likely due to hypovolemia and responded to IV fluids. Will review and resume antihypertensives as needed. 4. ESRD on hemodialysis: On dialysis this morning. Nephrology on board. 5. DM2 Fasting sugar this morning was 166. A1c is 10.3. On insulin Levemir 52 units daily and insulin sliding scale. Received 33 IU of short acting insulin yesterday will increase levemir to 60IU daily and continue ISS 6. CAD s/p CABG on aspirin, statin, ranexa and plavix and carvedilol 7. Hyponatremia Na is 132; possibly due to hypervolemic hyponatremia from ESRD. Does have a history of chronic hyponatremia from her past records will monitor for resolution after dialysis 8. DVT Prophylaxis: Heparin drip This note was generated with [employer] software. It may contain incorrect words, spelling, and punctuation that were not noted in checking the note before signing. Code Visit Inpatient E&M: 50490 Subs Hosp L3
--- NOTE | 2017-06-09 11:34 | PN_ITS ---
Patient Problems: Active and Suspected Problems (Last Reviewed 05/14/17 @ 14:02 by Carmen Mckoy) NSTEMI (non-ST elevated myocardial infarction) (Acute) COPD with acute exacerbation (Acute) Hypotension (Acute) Subjective: Patient is a 56-year-old female past medical history of CAD status post CABG, chronic diastolic heart failure, hypertension, hyperlipidemia, COPD, ESRD on hemodialysis, type 2 diabetes mellitus and morbid obesity. She Was admitted with a complaint of shortness of breath of one day's duration. She was found to have N STEMI but refused any intervention and preferred medical management. Nephrology is on board on account of ESRD. Seen and examined today. She still complains of chest pain and says she had a several times overnight. Chest pain was rated about 6/10 and was pressure- like. She denied any diaphoresis, any lightheadedness, any nausea vomiting. Due to the persistent chest pain, patient states she is now willing to have intervention and would want to have a cath. Review of systems otherwise negative. Vitals/I&O's: Vital Signs Temp Pulse Resp BP Pulse Ox 97.6 F L 68 16 123/60 H 96 06/09/17 09:04 06/09/17 11:00 06/09/17 09:04 06/09/17 09:04 06/09/17 09:05 Oxygen Flow Rate 2 Oxygen Delivery Method Room Air Weight: 201 lb 11.567 oz Body Mass Index (BMI) 38.6 Intake and Output for Last 24 Hours 06/07/17 06/08/17 06/09/17 23:59 23:59 23:59 Intake Total 720 / 720 1148 / 1148 240 / 240 Output Total 500 / 500 Balance 220 / 220 1148 / 1148 240 / 240 General: Alert, Oriented x3, Cooperative HEENT: Atraumatic, EOMI, Normocephalic Oral: Moist Mucosa Neck: Supple, No JVD, Negative Carotid Bruits Lungs: Normal air movement, - - Few coarse crackles bibasilarly. Cardiovascular: Regular rate, Regular Rhythm, Normal S1, Normal S2, No murmurs Abdomen: Bowel Sounds Present, Soft, Non Tender, Non-Distended, No Hepato- splenomegaly Extremities: No clubbing, No cyanosis, No edema, Capillary Refill Less than 3 Seconds, No Calf Tenderness Skin: No rashes, No breakdown, - - CABG scar Musculoskeletal: No Tenderness to Palpation of Joints or Extremities Lymphatic: No Cervical, Supraclavicular, or Inguinal Adenopathy Neurological: Cranial nerves II-XII grossly intact Psych/Mental Status: Normal Affect, Appropriate, Alert and oriented to time, place, person, mood and affect Microbiology Past 72 Hours 06/07/17 07:30 Mucosa - Nose Respiratory Panel (PCR) - Final Laboratory Results 06/08/17 05:40: Hemoglobin A1c 10.3 H 06/08/17 16:19: POC Glucose 247 H 06/08/17 22:57: POC Glucose 311 H 06/09/17 06:32: WBC 15.2 H, RBC 2.90 L, Hgb 8.9 L, Hct 27.8 L, MCV 95.9, MCH 30.7, MCHC 32.0, RDW 17.4 H, RDW Differential 61.1 H, Plt Count 348, MPV 9.8 06/09/17 06:32: Sodium 132 L, Potassium 3.9, Chloride 93 L, Carbon Dioxide 27.0 , Anion Gap 12, BUN 66 H, Creatinine 5.25 H, Estim Creat Clear Calc 8.92, Est GFR (MDRD) Af Amer 11 L, Est GFR (MDRD) Non-Af 9 L, BUN/Creatinine Ratio 12.6, Glucose 166 H, Calcium 8.4 L 06/09/17 06:50: POC Glucose 168 H Current Medications Acetaminophen (Tylenol) 650 mg PO Q6H PRN PRN PRN Reason: Mild Pain (1-3)/Temp > 100.7 F Last Admin: 06/07/17 17:26 Dose: 650 mg Albuterol Sulfate (Ventolin Aerosols) 2.5 mg INHALATION Q2H PRN PRN PRN Reason: SHORTNESS OF BREATH Albuterol/Ipratropium (Duoneb) 3 ml INHALATION Q4H.RT [facility] Last Admin: 06/09/17 07:08 Dose: 3 ml Aspirin (Aspirin, Baby) 81 mg PO DAILY@0800 [facility] Last Admin: 06/08/17 09:15 Dose: 81 mg Atorvastatin Calcium (Lipitor) 80 mg PO QHS [facility] Last Admin: 06/08/17 22:38 Dose: 80 mg Atropine Sulfate (Atropisol) 1 drop PO BID [facility] Last Admin: 06/08/17 22:38 Dose: 1 drop Brimonidine Tartrate (Brimonidine 0.2% 5ml Bottle) 1 drop LEFT EYE TID [facility] Last Admin: 06/09/17 05:23 Dose: Not Given Calcium Acetate (Phoslo Gel Cap) 667 mg PO TIDCM [facility] Last Admin: 06/09/17 08:26 Dose: Not Given Carvedilol (Coreg) 25 mg PO BID [facility] Last Admin: 06/08/17 22:36 Dose: 25 mg Citalopram Hydrobromide (Celexa) 20 mg PO DAILY [facility] Last Admin: 06/08/17 09:15 Dose: 20 mg Clopidogrel Bisulfate (Plavix) 75 mg PO DAILY [facility] Last Admin: 06/08/17 09:16 Dose: 75 mg Ergocalciferol (Vitamin D) 50,000 unit PO [facility] Famotidine (Pepcid) 20 mg PO DAILY [facility] Last Admin: 06/08/17 09:16 Dose: 20 mg Gabapentin (Neurontin) 300 mg PO QHS [facility] Last Admin: 06/08/17 22:37 Dose: 300 mg Guaifenesin (Mucinex) 600 mg PO BID [facility] Last Admin: 06/08/17 22:36 Dose: 600 mg Heparin Sodium (Porcine) () 5,000 units SC BID [facility] Last Admin: 06/08/17 22:43 Dose: 5,000 units Heparin Sodium (Porcine) (Heparin Na) 0 unit IV UD PRN PRN Reason: Protocol Insulin Aspart (Novolog Flexpen (Bk)) 0 units SC TIDAC [facility] PRN Reason: Protocol Last Admin: 06/09/17 08:25 Dose: Not Given Insulin Detemir (Levemir (Bk)) 52 units SC DAILY [facility] Last Admin: 06/08/17 09:16 Dose: 52 u Magnesium Hydroxide (Milk Of Magnesia) 30 ml PO DAILY PRN PRN Reason: Constipation Multivitamins (Allbee W/C Caplet, Thera B Comp/C) [facility] Last Admin: 06/08/17 09:13 Dose: Not Given Nitroglycerin (Nitrobid) 1 inch TRANSDERM. Q8 [facility] Last Admin: 06/09/17 06:12 Dose: 1 inch Nutritional Formula (Lactose Free) (Ensure Enlive) 120 ml PO 4X/DAY [facility] Last Admin: 06/08/17 22:38 Dose: Not Given Ondansetron HCl (Zofran) 4 mg IV Q8H PRN PRN PRN Reason: NAUSEA Ondansetron HCl (Zofran) 8 mg PO Q6H PRN PRN Reason: NAUSEA Prednisone (Prednisone) 40 mg PO DAILY@0800 [facility] Pyridoxine HCl (Vitamin B-6) 100 mg PO DAILY [facility] Last Admin: 06/08/17 09:17 Dose: 100 mg Ranolazine (Ranexa) 500 mg PO BID [facility] Last Admin: 06/08/17 22:36 Dose: 500 mg Senna (Senokot) 1 tablet PO QHS PRN PRN Reason: Constipation Sodium Chloride () 5 - 30 ml IV UD PRN PRN Reason: SALINE FLUSH Last Admin: 06/08/17 09:32 Dose: 10 ml Timolol Maleate (Timoptic) 1 drop LEFT EYE BID [facility] Last Admin: 06/08/17 22:44 Dose: 1 drop Assessment/Plan Active and Suspected Problems (Last Reviewed 05/14/17 @ 14:02 by Carmen Mckoy) NSTEMI (non-ST elevated myocardial infarction) (Acute) COPD with acute exacerbation (Acute) Hypotension (Acute) 1. NSTEMI * still has complaints of chest pain. * cardiology is on board. Initially refused cardiac cath, so heparin drip was stopped. However patient is now willing to have cardiac cath due to persistent chest pain. * per discussion with skein tier, will resume heparin drip. * On Imdur, as needed sublingual nitro * Continue to monitor. * 2. Acute exacerbation of COPD: Resolving. Still has some coarse crackles in lower lung irby bilaterally. Pulmonary on board. Currently on p.o. prednisone and breathing treatments. Will monitor. 3. Hypotension: Resolved. Antihypertensives on hold due to hypotension which is likely due to hypovolemia and responded to IV fluids. Will review and resume antihypertensives as needed. 4. ESRD on hemodialysis: On dialysis this morning. Nephrology on board. 5. DM2 * Fasting sugar this morning was 166. A1c is 10.3. * On insulin Levemir 52 units daily and insulin sliding scale. Received 33 IU of short acting insulin yesterday * will increase levemir to 60IU daily and continue ISS * 6. CAD s/p CABG * on aspirin, statin, ranexa and plavix and carvedilol * 7. Hyponatremia * Na is 132; possibly due to hypervolemic hyponatremia from ESRD. * Does have a history of chronic hyponatremia from her past records * will monitor for resolution after dialysis 8. DVT Prophylaxis: Heparin drip This note was generated with [employer] dictation software. It may contain incorrect words, spelling, and punctuation that were not noted in checking the note before signing. Code Visit Inpatient E&M: 36943 Subs Hosp L3
[2017-06-09 11:50] LABS: Bedside Glucose 184 mg/dL (70-110)
--- NOTE | 2017-06-09 13:40 | PN.CARD_ITS ---
Subjectve: Episode of chest pain last night. Presently asymptomatic. Objective: Vital Signs Temp Pulse Resp BP Pulse Ox 97.6 F L 68 16 123/60 H 96 06/09/17 09:04 06/09/17 11:00 06/09/17 09:04 06/09/17 09:04 06/09/17 09:05 Oxygen Flow Rate 2 Oxygen Delivery Method Room Air Weight: 91.5 kg Body Mass Index (BMI) 38.6 Intake and Output for Last 24 Hours 06/07/17 06/08/17 06/09/17 23:59 23:59 23:59 Intake Total 720 / 720 1148 / 1148 480 / 480 Output Total 500 / 500 Balance 220 / 220 1148 / 1148 480 / 480 General: Healthy Appearing, Awake, Alert, No Acute Distress HEENT: Atraumatic Oral: Moist Mucosa Neck: Supple Lungs: Clear to auscultation Cardiovascular: Regular Rhythm, Normal S1, Normal S2 Abdomen: Bowel Sounds Present, Soft, Non Tender Extremities: No edema Neurological: No Focal Motor or Sensory Deficit 06/08/17 05:40: Hemoglobin A1c 10.3 H 06/09/17 06:32: WBC 15.2 H, RBC 2.90 L, Hgb 8.9 L, Hct 27.8 L, MCV 95.9, MCH 30.7, MCHC 32.0, RDW 17.4 H, RDW Differential 61.1 H, Plt Count 348, MPV 9.8 06/09/17 06:32: Sodium 132 L, Potassium 3.9, Chloride 93 L, Carbon Dioxide 27.0 , Anion Gap 12, BUN 66 H, Creatinine 5.25 H, Est GFR (MDRD) Af Amer 11 L, Est GFR (MDRD) Non-Af 9 L, BUN/Creatinine Ratio 12.6, Glucose 166 H, Calcium 8.4 L Assessment/Plan 1. Non-ST elevation myocardial infarction. Episode of chest pain last night. Presently asymptomatic. Resume heparin. Discussed with patient. Cardiac catheterization offered again. Now she wishes to proceed. We will plan on doing heart catheterization with coronary angiography and possible revascularization on Sunday. Depending on her clinical situation, urgent angiography and/or intervention may be undertaken if needed 2. COPD exacerbation with hypoxia. Manage as per internal medicine 3. End-stage renal disease on hemodialysis 4. Diabetes mellitus 5. Dyslipidemia 6. History of hypertension 7. Anemia of chronic disease
[2017-06-09] MEDS: Vitamin B Comp W-C Capsule 1 CAP PO (13:56)
[2017-06-09] MEDS: Aspirin 81 MG TAB.CHEW PO (13:57)
[2017-06-09] MEDS: Timolol 0.5% 5ML OPTH.BTL 1 DRP LEFT EYE ×2 (13:58→22:21)
[2017-06-09] MEDS: Atropine Sulfate 1% 2 ml Bottle 1 DRP PO ×2 (13:58→22:19)
[2017-06-09] MEDS: Citalopram 20 MG Tablet PO (13:58)
[2017-06-09] MEDS: Carvedilol 25 MG Tablet PO ×2 (13:59→22:20)
[2017-06-09] MEDS: guaiFENesin 600 MG Tablet PO ×2 (13:59→22:20)
[2017-06-09] MEDS: Famotidine 20 MG Tablet PO (13:59)
[2017-06-09] MEDS: Calcitriol 0.25 MCG Capsule 0.75 MCG PO (14:00)
[2017-06-09] MEDS: Pyridoxine HCl 100 MG Tablet PO (14:00)
[2017-06-09] MEDS: Calcium Acetate 667 MG Capsule PO ×2 (14:00→16:57)
[2017-06-09] MEDS: Ranolazine 500 MG Tablet PO ×2 (14:00→22:20)
--- NOTE | 2017-06-09 14:01 | DIALYSIS ---
HD x 3.5 hours complete. Tolerated tx well. Ran on 3k bath. UF of 2100ml. Used left arm fistula. Constantine removed post tx. ABDIAS Barrera to give calcitriol as ordered with other meds post tx. Report was given to ABDIAS Barrera.
--- NOTE | 2017-06-09 14:03 | NURSING ---
medications late due to dialysis
[2017-06-09] MEDS: Clopidogrel Bisulfate 75 MG Tablet PO (14:09)
[2017-06-09 14:37] LABS: Partial Thromboplast Time 25.5 Seconds (24.1-36.2)
[2017-06-09] MEDS: HEPARIN/D5w 25,000 UNITS 25,000 UNITS/250 ML IV.SOLN. 10 UNITS IV (14:49)
[2017-06-09 16:16] LABS: Bedside Glucose 198 mg/dL (70-110)
[2017-06-09 21:44] LABS: Partial Thromboplast Time 49.7 Seconds (24.1-36.2)
[2017-06-09] MEDS: Gabapentin 300 MG Capsule PO (22:20)
[2017-06-09] MEDS: Atorvastatin Calcium 80 MG Tablet PO (22:22)
[2017-06-09 23:26] LABS: Bedside Glucose 305 mg/dL (70-110)
[2017-06-10] VITALS (12 sets, daily range): BP systolic 130–157; BP diastolic 61–76; PULSE 64–74; RESP 14–19; TEMP 35.6–36.7; O2SAT 93–99
[2017-06-10 04:16] LABS: Absolute Lymphocyte Count 0.62 X10^3/ul (0.83-4.51); Absolute Neutrophil Count 8.8 X10^3/uL (2.0-7.7); Hematocrit 28.3 % (37-47); Lymphocyte # 0.62 X10^3/ul (4.0); Lymphocyte % 6.1 % (19-41); Mean Corp Hgb Conc 31.8 g/gl (32-36); Mean Corpuscular Hgb 30.7 pg (27.0-32.0); Mean Corpuscular Volume 96.6 fL (81-99); Mean Platelet Vol. 9.4 fl (6.2-12.0); Monocyte# 0.68 X10^3/uL; Monocyte% 6.7 % (0-10); Neutrophil # 8.76 X10^3/uL (2.7-7.7); Neutrophil % 86.9 % (47-70); Platelet Count 324 K/mm3 (150-450); RBC Distribution Width CV 17.2 % (11.6-14.6); RBC Distribution Width SD 61.1 fl (35.1-43.9); Red Blood Count 2.93 M/mm3 (4.2-5.4); White Blood Count 10.1 K/mm3 (4.4-11.0)
[2017-06-10 04:17] LABS: Partial Thromboplast Time 88.5 Seconds (24.1-36.2)
[2017-06-10 04:18] LABS: POSITIVE COUNT NO; POSITIVE DIFFERENTIAL NO; POSITIVE MORPHOLOGY NO
[2017-06-10 04:31] LABS: Albumin, Serum 2.8 g/dL (3.2-5.0); BUN 50 mg/dL (7-18); BUN/Creat Ratio 13.3 RATIO (10-20); Calcium,Total 8.2 mg/dL (8.5-10.1); Chloride 91 mmol/L (98-107); Creatinine, Serum 3.75 mg/dL (0.55-1.02); EST Glomerular Filtration Rate 13 mL/min (>60); Est Glom Filt Rate - Afr Amer 16 mL/min (>60); Estimated Creatinine Clearance 12.49 ml/min; Glucose 489 mg/dL (74-106); Phosphorus 3.3 mg/dL (2.5-4.9); Potassium 4.4 mmol/L (3.5-5.1); Sodium Level 128 mmol/L (136-145)
[2017-06-10] MEDS: Nitroglycerin Oint 1 INCH PACKET TRANSDERM. ×3 (05:00→21:28)
[2017-06-10 06:57] LABS: Bedside Glucose 380 mg/dL (70-110)
[2017-06-10] MEDS: Ipratropium/Albuterol Sulfate 3 ML AMPUL.NEB INHALATION ×3 (07:14→19:20)
[2017-06-10] MEDS: Calcium Acetate 667 MG Capsule PO ×3 (08:42→16:14)
[2017-06-10] MEDS: Aspirin 81 MG TAB.CHEW PO (08:42)
[2017-06-10] MEDS: Vitamin B Comp W-C Capsule 1 CAP PO (08:43)
[2017-06-10] MEDS: Citalopram 20 MG Tablet PO (09:48)
[2017-06-10] MEDS: Atropine Sulfate 1% 2 ml Bottle 1 DRP PO ×2 (09:48→21:29)
[2017-06-10] MEDS: Carvedilol 25 MG Tablet PO ×2 (09:48→21:27)
[2017-06-10] MEDS: Isosorbide Mononitrate 60 MG Tablet PO (09:49)
[2017-06-10] MEDS: guaiFENesin 600 MG Tablet PO ×2 (09:49→21:28)
[2017-06-10] MEDS: Furosemide 80 MG Tablet PO (09:49)
[2017-06-10] MEDS: Pyridoxine HCl 100 MG Tablet PO (09:50)
[2017-06-10] MEDS: Ranolazine 500 MG Tablet PO ×2 (09:50→21:28)
[2017-06-10] MEDS: Clopidogrel Bisulfate 75 MG Tablet PO (09:50)
[2017-06-10] MEDS: Famotidine 20 MG Tablet PO (09:50)
[2017-06-10] MEDS: Timolol 0.5% 5ML OPTH.BTL 1 DRP LEFT EYE ×2 (09:52→21:29)
[2017-06-10 10:37] LABS: Partial Thromboplast Time 59.3 Seconds (24.1-36.2)
--- NOTE | 2017-06-10 11:13 | PCM.PN.HOSP ---
Subjective: Patient seen and examined today. She feels well and did not have any chest pain overnight. Heparin drip is running. She denies any fever or chills, any headache, any shortness of breath, any abdominal pain, any diarrhea vomiting. Review of systems otherwise negative. Objective: Patient is a 56-year-old female past medical history of CAD status post CABG, chronic diastolic heart failure, hypertension, hyperlipidemia, COPD, ESRD on hemodialysis, type 2 diabetes mellitus and morbid obesity. She Was admitted with a complaint of shortness of breath of one day's duration. She was found to have N STEMI but initially refused any intervention and preferred medical management. Nephrology is on board on account of ESRD. She had persistent chest pain, and on 06/09/17, she decided to have the cardiac cath. she was restarted on heparin drip. Plan is for cardiac cath on Sunday06/11/17. Vitals/I&O's: Vital Signs Temp Pulse Resp BP Pulse Ox 97.9 F 66 16 157/70 H 99 06/10/17 08:50 06/10/17 08:50 06/10/17 08:50 06/10/17 08:50 06/10/17 08:50 Oxygen Flow Rate 2 Oxygen Delivery Method Room Air Weight: 203 lb 7.787 oz Body Mass Index (BMI) 38.6 Intake and Output for Last 24 Hours 06/08/17 06/09/17 06/10/17 23:59 23:59 23:59 Intake Total 1148 / 1148 1276 / 1276 305 / 305 Output Total 2100 / 2100 Balance 1148 / 1148 -824 / -824 305 / 305 General: Alert, Oriented x3, Cooperative, No apparent distress HEENT: Atraumatic, PERRLA, EOMI, Normocephalic Oral: Moist Mucosa Neck: Supple, No JVD, Negative Carotid Bruits Lungs: Normal air movement, - - Still has few coarse crackles bibasally. Cardiovascular: Regular rate, Regular Rhythm, Normal S1, Normal S2, No murmurs Abdomen: Bowel Sounds Present, Soft, Non Tender, Non-Distended, No Hepato-splenomegaly Extremities: No clubbing, No cyanosis, No edema Skin: No rashes, No breakdown Musculoskeletal: No Tenderness to Palpation of Joints or Extremities Lymphatic: No Cervical, Supraclavicular, or Inguinal Adenopathy Neurological: Cranial nerves II-XII grossly intact Psych/Mental Status: Normal Affect, Appropriate, Alert and oriented to time, place, person, mood and affect Microbiology Past 72 Hours 06/07/17 07:30 Mucosa - Nose Respiratory Panel (PCR) - Final Laboratory Results 06/09/17 11:24: POC Glucose 184 H 06/09/17 14:15: APTT 25.5 06/09/17 16:05: POC Glucose 198 H 06/09/17 20:50: APTT 49.7 H 06/09/17 22:31: POC Glucose 305 H 06/10/17 04:00: WBC 10.1, RBC 2.93 L, Hgb 9.0 L, Hct 28.3 L, MCV 96.6, MCH 30.7, MCHC 31.8 L, RDW 17.2 H, RDW Differential 61.1 H, Plt Count 324, MPV 9.4, Immature Gran % (Auto) 0.300, Neut % (Auto) 86.9 H, Lymph % (Auto) 6.1 L, [place] % (Auto) 6.7, Eos % (Auto) 0.0, Baso % (Auto) 0.0, Absolute Neuts (auto) 8.8 H, Absolute Lymphs (auto) 0.62 L, Total Counted Not Reportable 06/10/17 04:00: Sodium 128 L, Potassium 4.4, Chloride 91 L, Carbon Dioxide 28.0, BUN 50 H, Creatinine 3.75 H, Estim Creat Clear Calc 12.49, Est GFR (MDRD) Af Amer 16 L, Est GFR (MDRD) Non-Af 13 L, BUN/Creatinine Ratio 13.3, Glucose 489 H*, Calcium 8.2 L, Phosphorus 3.3, Albumin 2.8 L 06/10/17 04:00: APTT 88.5 H 06/10/17 06:47: POC Glucose 380 H 06/10/17 10:20: APTT 59.3 H Current Medications Acetaminophen (Tylenol) 650 mg PO Q6H PRN PRN PRN Reason: Mild Pain (1-3)/Temp > 100.7 F Last Admin: 06/07/17 17:26 Dose: 650 mg Albuterol Sulfate (Ventolin Aerosols) 2.5 mg INHALATION Q2H PRN PRN PRN Reason: SHORTNESS OF BREATH Albuterol/Ipratropium (Duoneb) 3 ml INHALATION Q4H.RT [facility] Last Admin: 06/10/17 10:58 Dose: Not Given Aspirin (Aspirin, Baby) 81 mg PO DAILY@0800 [facility] Last Admin: 06/10/17 08:42 Dose: 81 mg Atorvastatin Calcium (Lipitor) 80 mg PO QHS [facility] Last Admin: 06/09/17 22:22 Dose: 80 mg Atropine Sulfate (Atropisol) 1 drop PO BID [facility] Last Admin: 06/10/17 09:48 Dose: 1 drop Brimonidine Tartrate (Brimonidine 0.2% 5ml Bottle) 1 drop LEFT EYE TID [facility] Last Admin: 06/10/17 05:00 Dose: Not Given Calcium Acetate (Phoslo Gel Cap) 667 mg PO TIDCM [facility] Last Admin: 06/10/17 08:42 Dose: 667 mg Carvedilol (Coreg) 25 mg PO BID [facility] Last Admin: 06/10/17 09:48 Dose: 25 mg Citalopram Hydrobromide (Celexa) 20 mg PO DAILY [facility] Last Admin: 06/10/17 09:48 Dose: 20 mg Clopidogrel Bisulfate (Plavix) 75 mg PO DAILY [facility] Last Admin: 06/10/17 09:50 Dose: 75 mg Ergocalciferol (Vitamin D) 50,000 unit PO [facility] Famotidine (Pepcid) 20 mg PO DAILY [facility] Last Admin: 06/10/17 09:50 Dose: 20 mg Furosemide (Lasix) 80 mg PO DAILY [facility] Last Admin: 06/10/17 09:49 Dose: 80 mg Gabapentin (Neurontin) 300 mg PO QHS [facility] Last Admin: 06/09/17 22:20 Dose: 300 mg Guaifenesin (Mucinex) 600 mg PO BID [facility] Last Admin: 06/10/17 09:49 Dose: 600 mg Heparin Sodium (Porcine) (Heparin Na) 0 unit IV UD PRN PRN Reason: Protocol Last Admin: 06/09/17 21:51 Dose: 1,000 units Heparin Sodium/Dextrose () 25,000 units in 250 mls @ 10 mls/hr IV .Q25H [facility]; As Directed PRN Reason: Protocol Last Admin: 02/17/18 14:49 Dose: 10 mls/hr Insulin Aspart (Novolog Flexpen (Bk)) 0 units SC TIDAC [facility] PRN Reason: Protocol Last Admin: 06/10/17 08:46 Dose: 14 u Insulin Detemir (Levemir ([facility])) 60 units SC DAILY [facility] Last Admin: 06/10/17 09:51 Dose: 60 u Isosorbide Mononitrate (Imdur) 60 mg PO DAILY [facility] Last Admin: 06/10/17 09:49 Dose: 60 mg Magnesium Hydroxide (Milk Of Magnesia) 30 ml PO DAILY PRN PRN Reason: Constipation Multivitamins (Allbee W/C Caplet, Thera B Comp/C) 1 capsule PO DAILYCM [facility] Last Admin: 06/10/17 08:43 Dose: 1 capsule Nitroglycerin (Nitrobid) 1 inch TRANSDERM. Q8 [facility] Last Admin: 06/10/17 05:00 Dose: 1 inch Nutritional Formula (Lactose Free) (Ensure Enlive) 120 ml PO 4X/DAY [facility] Last Admin: 06/10/17 09:49 Dose: 120 ml Ondansetron HCl (Zofran) 4 mg IV Q8H PRN PRN PRN Reason: NAUSEA Ondansetron HCl (Zofran) 8 mg PO Q6H PRN PRN Reason: NAUSEA Prednisone (Prednisone) 40 mg PO DAILY@0800 [facility] Last Admin: 06/10/17 08:43 Dose: 40 mg Pyridoxine HCl (Vitamin B-6) 100 mg PO DAILY [facility] Last Admin: 06/10/17 09:50 Dose: 100 mg Ranolazine (Ranexa) 500 mg PO BID [facility] Last Admin: 06/10/17 09:50 Dose: 500 mg Senna (Senokot) 1 tablet PO QHS PRN PRN Reason: Constipation Sodium Chloride () 5 - 30 ml IV UD PRN PRN Reason: SALINE FLUSH Last Admin: 06/08/17 09:32 Dose: 10 ml Timolol Maleate (Timoptic) 1 drop LEFT EYE BID [facility] Last Admin: 06/10/17 09:52 Dose: 1 drop Assessment/Plan 1. NSTEMI chest pain didnt recur overnight. feels well today; vitals are stable cardiology on board; currently on heparin drip, which was resumed yesterday. plan is for cardiac cath tomorrow; will keep NPO past midnight for cardiac cath tomorrow on Imdur and SL nitroglycerin on aspirin and plavix as well and statin will monitor 2. Acute exacerbation of COPD: Resolving. still has few coarse crackles bilaterally. on prednisone 40mg daily x 5 days. on breathing treatments will monitor 3. Hypertension had hypotension on admission, so BP meds were held hypotension now resolved. on carvedilol 25mg bid. Will resume losartan 50mg daily. 4. ESRD on hemodialysis: Had dialysis yesterday 06/09/17. Nephrology on board. Next dialysis on Sunday 5. DM2 very poorly controlled. Fasting sugar this morning-480 insulin levemir was increased to 60IU daily. A1C was 10.3; received only 6IU of short acting insulin yesterday. has already received 14IU of short acting insulin this morning will hold insuling tomorrow morning o/a of cardiac cath. To consider increasing levemir dose based on how sugars trend 6. CAD s/p CABG on aspirin, statin, ranexa and plavix and carvedilol 7. Hyponatremia Today has fallen further from 132 yesterday to 128 today. Didnt resolve with dialysis therefore, not likely due to fluid overload from ESRD. Will check serum osmolality, urine sodium and urine osmolality Fluid restriction. Nephrology on board; will await recs Will Monitor. 8. DVT Prophylaxis: Heparin drip 9. GI prophylaxis: PPI This note was generated with [employer] dictation software. It may contain incorrect words, spelling, and punctuation that were not noted in checking the note before signing. Code Visit Inpatient E&M: 04917 [facility] Hosp L3
[2017-06-10 11:46] LABS: Bedside Glucose 141 mg/dL (70-110)
--- NOTE | 2017-06-10 12:21 | PCM.PN.CARD ---
Subjectve: No complaints Objective: Vital Signs Temp Pulse Resp BP Pulse Ox 97.9 F 66 16 157/70 H 99 06/10/17 08:50 06/10/17 11:00 06/10/17 08:50 06/10/17 08:50 06/10/17 08:50 Oxygen Flow Rate 2 Oxygen Delivery Method Room Air Weight: 92.3 kg Body Mass Index (BMI) 38.6 Intake and Output for Last 24 Hours 06/08/17 06/09/17 06/10/17 23:59 23:59 23:59 Intake Total 1148 / 1148 1276 / 1276 305 / 305 Output Total 2099 / 2099 Balance 1148 / 1148 -824 / -824 305 / 305 General: Healthy Appearing, Awake, Oriented x 3 HEENT: Atraumatic Oral: Moist Mucosa Neck: Supple Lungs: Clear to auscultation Cardiovascular: Regular Rhythm, Normal S1, Normal S2 Abdomen: Bowel Sounds Present, Soft Extremities: No edema 06/09/17 14:15: APTT 25.5 06/09/17 20:50: APTT 49.7 H 06/10/17 04:00: WBC 10.1, RBC 2.93 L, Hgb 9.0 L, Hct 28.3 L, MCV 96.6, MCH 30.7, MCHC 31.8 L, RDW 17.2 H, RDW Differential 61.1 H, Plt Count 324, MPV 9.4, Immature Gran % (Auto) 0.300, Neut % (Auto) 86.9 H, Lymph % (Auto) 6.1 L, [place] % (Auto) 6.7, Eos % (Auto) 0.0, Baso % (Auto) 0.0, Absolute Neuts (auto) 8.8 H, Total Counted Not Reportable 06/10/17 04:00: Sodium 128 L, Potassium 4.4, Chloride 91 L, Carbon Dioxide 28.0, BUN 50 H, Creatinine 3.75 H, Est GFR (MDRD) Af Amer 16 L, Est GFR (MDRD) Non-Af 13 L, BUN/Creatinine Ratio 13.3, Glucose 489 H*, Calcium 8.2 L, Phosphorus 3.3 06/10/17 04:00: APTT 88.5 H 06/10/17 10:20: APTT 59.3 H Rhythm: EKG: ECHO: Stress Test: Cardiac Cath: PCI: CT Surgery: Holter monitor: EPS: PPM: CXR: Chest CT Scan: Assessment/Plan 1. Non-ST elevation myocardial infarction. Plan for cardiac catheterization with coronary angiography tomorrow morning with Dr. Huang 2. COPD exacerbation with hypoxia. Manage as per internal medicine 3. End-stage renal disease on hemodialysis 4. Diabetes mellitus 5. Dyslipidemia 6. History of hypertension 7. Anemia of chronic disease 8. Hyponatremia. Manage as per nephrology
--- NOTE | 2017-06-10 12:25 | PN.CARD_ITS ---
Subjectve: No complaints Objective: Vital Signs Temp Pulse Resp BP Pulse Ox 97.9 F 66 16 157/70 H 99 06/10/17 08:50 06/10/17 11:00 06/10/17 08:50 06/10/17 08:50 06/10/17 08:50 Oxygen Flow Rate 2 Oxygen Delivery Method Room Air Weight: 92.3 kg Body Mass Index (BMI) 38.6 Intake and Output for Last 24 Hours 06/08/17 06/09/17 06/10/17 23:59 23:59 23:59 Intake Total 1148 / 1148 1276 / 1276 305 / 305 Output Total 2099 / 2099 Balance 1148 / 1148 -824 / -824 305 / 305 General: Healthy Appearing, Awake, Oriented x 3 HEENT: Atraumatic Oral: Moist Mucosa Neck: Supple Lungs: Clear to auscultation Cardiovascular: Regular Rhythm, Normal S1, Normal S2 Abdomen: Bowel Sounds Present, Soft Extremities: No edema 06/09/17 14:15: APTT 25.5 06/09/17 20:50: APTT 49.7 H 06/10/17 04:00: WBC 10.1, RBC 2.93 L, Hgb 9.0 L, Hct 28.3 L, MCV 96.6, MCH 30.7 , MCHC 31.8 L, RDW 17.2 H, RDW Differential 61.1 H, Plt Count 324, MPV 9.4, Immature Gran % (Auto) 0.300, Neut % (Auto) 86.9 H, Lymph % (Auto) 6.1 L, [place] % (Auto) 6.7, Eos % (Auto) 0.0, Baso % (Auto) 0.0, Absolute Neuts (auto) 8.8 H, Total Counted Not Reportable 06/10/17 04:00: Sodium 128 L, Potassium 4.4, Chloride 91 L, Carbon Dioxide 28.0 , BUN 50 H, Creatinine 3.75 H, Est GFR (MDRD) Af Amer 16 L, Est GFR (MDRD) Non- Af 13 L, BUN/Creatinine Ratio 13.3, Glucose 489 H*, Calcium 8.2 L, Phosphorus 3.3 06/10/17 04:00: APTT 88.5 H 06/10/17 10:20: APTT 59.3 H Rhythm: EKG: ECHO: Stress Test: Cardiac Cath: PCI: CT Surgery: Holter monitor: EPS: PPM: CXR: Chest CT Scan: Assessment/Plan 1. Non-ST elevation myocardial infarction. Plan for cardiac catheterization with coronary angiography tomorrow morning with Dr. Huang 2. COPD exacerbation with hypoxia. Manage as per internal medicine 3. End-stage renal disease on hemodialysis 4. Diabetes mellitus 5. Dyslipidemia 6. History of hypertension 7. Anemia of chronic disease 8. Hyponatremia. Manage as per nephrology
[2017-06-10] MEDS: HEPARIN/D5w 25,000 UNITS 25,000 UNITS/250 ML IV.SOLN. 10 UNITS IV (14:46)
[2017-06-10 16:31] LABS: Bedside Glucose 340 mg/dL (70-110)
[2017-06-10 17:01] LABS: Partial Thromboplast Time 53.2 Seconds (24.1-36.2)
[2017-06-10 17:08] LABS: Osmolality, Serum 309 mOsm/KG (275-295)
[2017-06-10 20:56] LABS: Bacteria 0 SEEN /hpf (None Seen); Mucous, Urine 0 SEEN /hpf (<or=2+); Red Blood Cells-Urine 0 SEEN /hpf (0-5); White Blood Cells 0 SEEN /hpf (0-5)
[2017-06-10 20:59] LABS: Color, Urine Yellow (Yellow); Glucose, Dipstick 250 mg/dl (Normal); Ketone-Dipstick Negative (Negative); Leukocyte Esterase-Dipstick 25 /ul (Negative); Nitrite-Dipstick Negative (Negative); Occult Blood-Urine Negative /ul (Negative); Protein-Dipstick 15 mg/dl (Negative); Specific Gravity, Urine 1.015 (1.002-1.030); Urine Bilirubin Dipstick Negative (Negative); Urine Clarity Clear (Clear); Urine Urobilinogen Normal (Normal)
[2017-06-10 21:00] LABS: Urine Sodium 45 mmol/L (Not Establ.)
[2017-06-10 21:07] LABS: Hyaline Cast 5-10 SEEN /lpf (0-5); Squamous Epithelial Cells - UA 0-5 SEEN /hpf (5-10)
[2017-06-10 21:26] LABS: Osmolality, Urine 366 mOsm/KG
[2017-06-10] MEDS: Atorvastatin Calcium 80 MG Tablet PO (21:28)
[2017-06-10] MEDS: Gabapentin 300 MG Capsule PO (21:28)
[2017-06-10 22:10] LABS: Bedside Glucose 378 mg/dL (70-110)
[2017-06-10 23:22] LABS: Partial Thromboplast Time 79.1 Seconds (24.1-36.2)
[2017-06-11] VITALS (17 sets, daily range): BP systolic 99–133; BP diastolic 42–66; PULSE 60–81; RESP 14–20; TEMP 36.4–37.1; O2SAT 95–100
[2017-06-11 04:45] LABS: Hematocrit 27.9 % (37-47); Hemoglobin 9.1 g/dl (12.0-15.0); Lymphocyte % 11.1 % (19-41); Mean Corp Hgb Conc 32.6 g/gl (32-36); Mean Corpuscular Volume 94.9 fL (81-99); Monocyte# 1.37 X10^3/uL; Monocyte% 11.7 % (0-10); Neutrophil # 8.99 X10^3/uL (2.7-7.7); Neutrophil % 76.7 % (47-70); Platelet Count 351 K/mm3 (150-450); RBC Distribution Width CV 16.3 % (11.6-14.6); Red Blood Count 2.94 M/mm3 (4.2-5.4); White Blood Count 11.7 K/mm3 (4.4-11.0)
[2017-06-11 04:48] LABS: POSITIVE COUNT NO; POSITIVE DIFFERENTIAL NO; POSITIVE MORPHOLOGY NO
[2017-06-11 04:53] LABS: Partial Thromboplast Time 66.6 Seconds (24.1-36.2)
[2017-06-11 05:05] LABS: Albumin, Serum 2.9 g/dL (3.2-5.0); BUN 83 mg/dL (7-18); BUN/Creat Ratio 17.4 RATIO (10-20); Calcium,Total 8.6 mg/dL (8.5-10.1); Chloride 92 mmol/L (98-107); Creatinine, Serum 4.76 mg/dL (0.55-1.02); EST Glomerular Filtration Rate 10 mL/min (>60); Est Glom Filt Rate - Afr Amer 12 mL/min (>60); Estimated Creatinine Clearance 9.84 ml/min; Glucose 156 mg/dL (74-106); Phosphorus 2.8 mg/dL (2.5-4.9); Potassium 4.4 mmol/L (3.5-5.1); Sodium Level 130 mmol/L (136-145)
[2017-06-11 05:18] LABS: International Normalized Ratio 1.2; Prothrombin Time (Protime)PT. 14.4 SECONDS (11.7-14.9)
[2017-06-11] MEDS: Isosorbide Mononitrate 60 MG Tablet PO (05:52)
[2017-06-11] MEDS: Losartan Potassium 50 MG Tablet PO (05:52)
[2017-06-11] MEDS: Carvedilol 25 MG Tablet PO ×2 (05:52→22:15)
[2017-06-11] MEDS: Famotidine 20 MG Tablet PO (05:52)
[2017-06-11] MEDS: Aspirin 81 MG TAB.CHEW PO (05:52)
[2017-06-11] MEDS: Nitroglycerin Oint 1 INCH PACKET TRANSDERM. ×3 (05:52→22:12)
[2017-06-11] MEDS: Clopidogrel Bisulfate 75 MG Tablet PO (05:52)
[2017-06-11] MEDS: Ranolazine 500 MG Tablet PO ×2 (05:52→22:13)
--- NOTE | 2017-06-11 05:55 | EKG12_ITS ---
Test Reason : AM EKG Blood Pressure : / mmHG Vent. Rate : 065 BPM Atrial Rate : 065 BPM P-R Int : 158 ms QRS Dur : 098 ms QT Int : 434 ms P-R-T Axes : 058 -43 124 degrees QTc Int : 451 ms Normal sinus rhythm Left axis deviation ST & T wave abnormality, consider lateral ischemia Abnormal ECG When compared with ECG of 08-JUN-2017 22:33, MANUAL COMPARISON REQUIRED, DATA IS UNCONFIRMED Confirmed by OLINDA MUSTAFA ([id number]), editor index MADDY STERLING ([id number] on 06/14/2017 3:10:53 PM Referred By: DR CLARK Confirmed By:OLINDA MUSTAFA
[2017-06-11 07:01] LABS: Bedside Glucose 149 mg/dL (70-110)
[2017-06-11] MEDS: Ipratropium/Albuterol Sulfate 3 ML AMPUL.NEB INHALATION ×4 (07:14→21:22)
--- NOTE | 2017-06-11 09:04 | CASEMGMT ---
According to the [facility] community plan website, the following in-network tertiary facilities are: [facility], [place], [facility], [place], [facility], [facility], [place], [facility], and . Mirian CALERO CM
--- NOTE | 2017-06-11 10:04 | PN.RENAL_ITS ---
Subjective: No further chest pain or shortness of breath. Scheduled for heart catheterization later today. Episode of hyperglycemia yesterday of unclear etiology with hyponatremia both have improved today. - Physical Exam General: Alert, Oriented x3, Cooperative, No apparent distress Neck: Supple Lungs: Clear to auscultation Cardiovascular: Regular rate Abdomen: Bowel Sounds Present, Soft, Non Tender Extremities: No edema, - - Left forearm AV fistula with good thrill and bruit Neurological: Cranial nerves II-XII grossly intact Psych/Mental Status: Normal Affect Vital Signs Temp Pulse Resp BP Pulse Ox 97.8 F 68 16 130/61 H 95 06/11/17 05:46 06/11/17 07:35 06/11/17 07:15 06/11/17 05:46 06/11/17 07:15 Oxygen Flow Rate 2 Oxygen Delivery Method Room Air Weight: 93.7 kg Body Mass Index (BMI) 38.6 Intake and Output for Last 24 Hours 06/09/17 06/10/17 06/11/17 23:59 23:59 23:59 Intake Total 1276 / 1276 1377 / 1377 87 / 87 Output Total 2100 / 2100 Balance -824 / -824 1377 / 1377 87 / 87 Laboratory Tests Past 24 Hrs 06/10/17 06/10/17 06/10/17 10:20 16:10 16:10 WBC RBC Hgb Hct MCV MCH MCHC RDW RDW Differential Plt Count MPV Immature Gran % (Auto) Neut % (Auto) Lymph % (Auto) [place] % (Auto) Eos % (Auto) Baso % (Auto) Absolute Neuts (auto) Absolute Lymphs (auto) Total Counted PT INR APTT 59.3 H 53.2 H Sodium Potassium Chloride Carbon Dioxide BUN Creatinine Estim Creat Clear Calc Est GFR (MDRD) Af Amer Est GFR (MDRD) Non-Af BUN/Creatinine Ratio Glucose Serum Osmolality 309 H Calcium Phosphorus Albumin Urine Color Urine Clarity Urine pH Ur Specific [place] Urine Protein Urine Glucose (UA) Urine Ketones Urine Occult Blood Urine Nitrite Urine Bilirubin Urine Urobilinogen Ur Leukocyte Esterase Urine RBC Urine WBC Ur Squamous Epith Cells Urine Bacteria Hyaline Casts Urine Mucus Urine Osmolality Ur Random Sodium 06/10/17 06/10/17 06/10/17 20:38 20:38 20:38 WBC RBC Hgb Hct MCV MCH MCHC RDW RDW Differential Plt Count MPV Immature Gran % (Auto) Neut % (Auto) Lymph % (Auto) [place] % (Auto) Eos % (Auto) Baso % (Auto) Absolute Neuts (auto) Absolute Lymphs (auto) Total Counted PT INR APTT Sodium Potassium Chloride Carbon Dioxide BUN Creatinine Estim Creat Clear Calc Est GFR (MDRD) Af Amer Est GFR (MDRD) Non-Af BUN/Creatinine Ratio Glucose Serum Osmolality Calcium Phosphorus Albumin Urine Color Yellow Urine Clarity Clear Urine pH 5.0 Ur Specific [place] 1.015 Urine Protein 15 H Urine Glucose (UA) 250 H Urine Ketones Negative Urine Occult Blood Negative Urine Nitrite Negative Urine Bilirubin Negative Urine Urobilinogen Normal Ur Leukocyte Esterase 25 H Urine RBC 0 SEEN Urine WBC 0 SEEN Ur Squamous Epith Cells 0-5 SEEN Urine Bacteria 0 SEEN Hyaline Casts 5-10 SEEN Urine Mucus 0 SEEN Urine Osmolality 366 Ur Random Sodium 45 06/10/17 06/11/17 06/11/17 22:50 04:26 04:26 WBC 11.7 H RBC 2.94 L Hgb 9.1 L Hct 27.9 L MCV 94.9 MCH 31.0 MCHC 32.6 RDW 16.3 H RDW Differential 54.0 H Plt Count 351 MPV 10.0 Immature Gran % (Auto) 0.500 Neut % (Auto) 76.7 H Lymph % (Auto) 11.1 L [place] % (Auto) 11.7 H Eos % (Auto) 0.0 Baso % (Auto) 0.0 Absolute Neuts (auto) 9.0 H Absolute Lymphs (auto) 1.30 Total Counted Not Reportable PT INR APTT 79.1 H Sodium 130 L Potassium 4.4 Chloride 92 L Carbon Dioxide 27.0 BUN 83 H Creatinine 4.76 H Estim Creat Clear Calc 9.84 Est GFR (MDRD) Af Amer 12 L Est GFR (MDRD) Non-Af 10 L BUN/Creatinine Ratio 17.4 Glucose 156 H Serum Osmolality Calcium 8.6 Phosphorus 2.8 Albumin 2.9 L Urine Color Urine Clarity Urine pH Ur Specific [place] Urine Protein Urine Glucose (UA) Urine Ketones Urine Occult Blood Urine Nitrite Urine Bilirubin Urine Urobilinogen Ur Leukocyte Esterase Urine RBC Urine WBC Ur Squamous Epith Cells Urine Bacteria Hyaline Casts Urine Mucus Urine Osmolality Ur Random Sodium 06/11/17 06/11/17 04:26 04:26 WBC RBC Hgb Hct MCV MCH MCHC RDW RDW Differential Plt Count MPV Immature Gran % (Auto) Neut % (Auto) Lymph % (Auto) [place] % (Auto) Eos % (Auto) Baso % (Auto) Absolute Neuts (auto) Absolute Lymphs (auto) Total Counted PT 14.4 INR 1.2 APTT 66.6 H Sodium Potassium Chloride Carbon Dioxide BUN Creatinine Estim Creat Clear Calc Est GFR (MDRD) Af Amer Est GFR (MDRD) Non-Af BUN/Creatinine Ratio Glucose Serum Osmolality Calcium Phosphorus Albumin Urine Color Urine Clarity Urine pH Ur Specific [place] Urine Protein Urine Glucose (UA) Urine Ketones Urine Occult Blood Urine Nitrite Urine Bilirubin Urine Urobilinogen Ur Leukocyte Esterase Urine RBC Urine WBC Ur Squamous Epith Cells Urine Bacteria Hyaline Casts Urine Mucus Urine Osmolality Ur Random Sodium POC Glucose 06/11/17 06/10/17 06/10/17 06:47 21:40 16:11 POC Glucose 149 H 378 H 340 H 06/10/17 11:40 POC Glucose 141 H Assessment/Plan 1. ESRD HD TTS schedule. We will see if she needs a short treatment after her heart cath later today if she complains of shortness of breath. 2. Chest pain with +troponins. Hx CAD CABG. heart catheterization scheduled for today. 3. Anemia hgb stable MORGAN therapy with HD 4. Pseudo-hyponatremia due to hyperglycemia. Correct with dialysis 5. DM2 elevated sugars improved 6. HTN stable
[2017-06-11] MEDS: Senna Tablet 1 TABLET PO (10:21)
[2017-06-11] MEDS: Pyridoxine HCl 100 MG Tablet PO (10:22)
[2017-06-11] MEDS: guaiFENesin 600 MG Tablet PO ×2 (10:22→22:13)
[2017-06-11] MEDS: Citalopram 20 MG Tablet PO (10:23)
[2017-06-11] MEDS: Timolol 0.5% 5ML OPTH.BTL 1 DRP LEFT EYE ×2 (10:27→22:15)
[2017-06-11] MEDS: Atropine Sulfate 1% 2 ml Bottle 1 DRP PO ×2 (10:27→22:16)
[2017-06-11 10:41] LABS: Bedside Glucose 159 mg/dL (70-110)
[2017-06-11] MEDS: Vitamin B Comp W-C Capsule 1 CAP PO (13:19)
[2017-06-11] MEDS: Furosemide 80 MG Tablet PO (13:19)
[2017-06-11] MEDS: 0.9% NaCl Peripheral Flush Adult/Peds IV (13:24)
--- NOTE | 2017-06-11 14:01 | PCM.PROGNOTE ---
<Bianka Hobbs - Last Filed: 06/11/17 14:14> Subjective: Patient seen and examined. Denies chest pain overnight. Denies shortness of breath. Patient was not on the Physician/Allergy/Immunology schedule therefore cardiac catheterization has been moved to tomorrow morning. Patient is aware. Denies other complaints. - Physical Exam General: Alert, Oriented x3, Cooperative, No apparent distress HEENT: Atraumatic, PERRLA, EOMI, Normocephalic Neck: Supple, No JVD, Negative Carotid Bruits Lungs: Clear to auscultation, Diminished Cardiovascular: Regular rate, Regular Rhythm, Normal S1, Normal S2, No murmurs Abdomen: Bowel Sounds Present, Soft, Non Tender, Non-Distended, Obese Extremities: No clubbing, No cyanosis, No edema, Capillary Refill Less than 3 Seconds Skin: No rashes, No breakdown Musculoskeletal: No Tenderness to Palpation of Joints or Extremities Neurological: Cranial nerves II-XII grossly intact, Neuro grossly intact Psych/Mental Status: Normal Affect, Appropriate Vital Signs Temp Pulse Resp BP Pulse Ox 98.2 F 61 20 H 118/58 L 97 06/11/17 10:14 06/11/17 11:25 06/11/17 10:41 06/11/17 10:14 06/11/17 10:14 Oxygen Flow Rate 2 Oxygen Delivery Method Room Air Weight: 93.7 kg Body Mass Index (BMI) 38.6 Intake and Output for Last 24 Hours 06/09/17 06/10/17 06/11/17 23:59 23:59 23:59 Intake Total 1276 / 1276 1377 / 1377 267 / 267 Output Total 2100 / 2100 Balance -824 / -824 1377 / 1377 267 / 267 Laboratory Tests Past 24 Hrs 06/10/17 06/10/17 06/10/17 16:10 16:10 20:38 WBC RBC Hgb Hct MCV MCH MCHC RDW RDW Differential Plt Count MPV Immature Gran % (Auto) Neut % (Auto) Lymph % (Auto) [place] % (Auto) Eos % (Auto) Baso % (Auto) Absolute Neuts (auto) Absolute Lymphs (auto) Total Counted PT INR APTT 53.2 H Sodium Potassium Chloride Carbon Dioxide BUN Creatinine Estim Creat Clear Calc Est GFR (MDRD) Af Amer Est GFR (MDRD) Non-Af BUN/Creatinine Ratio Glucose Serum Osmolality 309 H Calcium Phosphorus Albumin Urine Color Yellow Urine Clarity Clear Urine pH 5.0 Ur Specific [place] 1.015 Urine Protein 15 H Urine Glucose (UA) 250 H Urine Ketones Negative Urine Occult Blood Negative Urine Nitrite Negative Urine Bilirubin Negative Urine Urobilinogen Normal Ur Leukocyte Esterase 25 H Urine RBC 0 SEEN Urine WBC 0 SEEN Ur Squamous Epith Cells 0-5 SEEN Urine Bacteria 0 SEEN Hyaline Casts 5-10 SEEN Urine Mucus 0 SEEN Urine Osmolality Ur Random Sodium 06/10/17 06/10/17 06/10/17 20:38 20:38 22:50 WBC RBC Hgb Hct MCV MCH MCHC RDW RDW Differential Plt Count MPV Immature Gran % (Auto) Neut % (Auto) Lymph % (Auto) [place] % (Auto) Eos % (Auto) Baso % (Auto) Absolute Neuts (auto) Absolute Lymphs (auto) Total Counted PT INR APTT 79.1 H Sodium Potassium Chloride Carbon Dioxide BUN Creatinine Estim Creat Clear Calc Est GFR (MDRD) Af Amer Est GFR (MDRD) Non-Af BUN/Creatinine Ratio Glucose Serum Osmolality Calcium Phosphorus Albumin Urine Color Urine Clarity Urine pH Ur Specific [place] Urine Protein Urine Glucose (UA) Urine Ketones Urine Occult Blood Urine Nitrite Urine Bilirubin Urine Urobilinogen Ur Leukocyte Esterase Urine RBC Urine WBC Ur Squamous Epith Cells Urine Bacteria Hyaline Casts Urine Mucus Urine Osmolality 366 Ur Random Sodium 45 06/11/17 06/11/17 06/11/17 04:26 04:26 04:26 WBC 11.7 H RBC 2.94 L Hgb 9.1 L Hct 27.9 L MCV 94.9 MCH 31.0 MCHC 32.6 RDW 16.3 H RDW Differential 54.0 H Plt Count 351 MPV 10.0 Immature Gran % (Auto) 0.500 Neut % (Auto) 76.7 H Lymph % (Auto) 11.1 L [place] % (Auto) 11.7 H Eos % (Auto) 0.0 Baso % (Auto) 0.0 Absolute Neuts (auto) 9.0 H Absolute Lymphs (auto) 1.30 Total Counted Not Reportable PT 14.4 INR 1.2 APTT Sodium 130 L Potassium 4.4 Chloride 92 L Carbon Dioxide 27.0 BUN 83 H Creatinine 4.76 H Estim Creat Clear Calc 9.84 Est GFR (MDRD) Af Amer 12 L Est GFR (MDRD) Non-Af 10 L BUN/Creatinine Ratio 17.4 Glucose 156 H Serum Osmolality Calcium 8.6 Phosphorus 2.8 Albumin 2.9 L Urine Color Urine Clarity Urine pH Ur Specific [place] Urine Protein Urine Glucose (UA) Urine Ketones Urine Occult Blood Urine Nitrite Urine Bilirubin Urine Urobilinogen Ur Leukocyte Esterase Urine RBC Urine WBC Ur Squamous Epith Cells Urine Bacteria Hyaline Casts Urine Mucus Urine Osmolality Ur Random Sodium 06/11/17 04:26 WBC RBC Hgb Hct MCV MCH MCHC RDW RDW Differential Plt Count MPV Immature Gran % (Auto) Neut % (Auto) Lymph % (Auto) [place] % (Auto) Eos % (Auto) Baso % (Auto) Absolute Neuts (auto) Absolute Lymphs (auto) Total Counted PT INR APTT 66.6 H Sodium Potassium Chloride Carbon Dioxide BUN Creatinine Estim Creat Clear Calc Est GFR (MDRD) Af Amer Est GFR (MDRD) Non-Af BUN/Creatinine Ratio Glucose Serum Osmolality Calcium Phosphorus Albumin Urine Color Urine Clarity Urine pH Ur Specific [place] Urine Protein Urine Glucose (UA) Urine Ketones Urine Occult Blood Urine Nitrite Urine Bilirubin Urine Urobilinogen Ur Leukocyte Esterase Urine RBC Urine WBC Ur Squamous Epith Cells Urine Bacteria Hyaline Casts Urine Mucus Urine Osmolality Ur Random Sodium POC Glucose 06/11/17 06/11/17 06/10/17 10:30 06:47 21:40 POC Glucose 159 H 149 H 378 H 06/10/17 16:11 POC Glucose 340 H Assessment/Plan Patient is a 56-year-old female admitted 06/07/17 due to shortness of breath. Her past medical history includes COPD, obstructive sleep apnea, hyperlipidemia, hypertension, coronary artery disease status post coronary artery bypass graft ?3, chronic diastolic CHF, end-stage renal disease on hemodialysis, anemia of chronic disease, type 2 diabetes mellitus, morbid obesity. 1. Acute COPD exacerbation with acute hypoxia-resolved. Continue prednisone 40 mg daily for 5 days. Continue albuterol and DuoNeb aerosols. Respiratory panel negative. Patient is afebrile. Oxygen stable on room air. Patient will need walking pulse ox prior to discharge. 2. MSTEMI-troponin 0.36, 0.62, 0.89, 1.33. EKG with T-wave inversions and ST depression. This is more pronounced compared to prior EKG. Patient follows with Dr. Huang. Patient had cardiac catheterization January 2016 which showed severe two-vessel coronary artery disease, nonobstructive disease of the distal right coronary artery. Continued medical management was recommended at that time. Cardiology suspecting demand ischemia secondary to acute COPD exacerbation/hypoxia. Continue aspirin, Plavix, statin, nitrates, beta-blockers, ranexa, heparin drip. Cardiology consulted. Patient to undergo cardiac catheterization tomorrow. 3. Coronary artery disease status post CABG ?3-continue aspirin, statin, Plavix, beta-ivy. 4. End-stage renal disease-on hemodialysis. Has left forearm AV fistula. T,TH,SAT schedule. Follows with Dr. Rollins who was consulted. Continue dialysis regimen. 5. Obstructive sleep apnea- previously wore CPAP which she has not been compliant with. She previously followed with Dr. Partida. Plans on establishing with Dr. Urbina in which she has an appointment 06/12/2017. Recommend continued use of CPAP. 5. Chronic diastolic CHF-no signs of acute exacerbation. Chest x-ray without signs of CHF on admission. Home Lasix regimen continued. Echocardiogram 2015 showed an estimated ejection fraction of 65%, stage III diastolic dysfunction, mild to moderate tricuspid insufficiency. Repeat echocardiogram shows an estimated ejection fraction of 50%, moderate mitral valve insufficiency, RVSP estimated to be 56 mmHg. 6. Type 2 diabetes mellitus- Hemoglobin A1c 10.3%. Accu-Cheks before meals at bedtime. Insulin regimen adjusted. Blood glucose improved this morning. 7. Hyperlipidemia-continue statin. 8. Hypertension-stable, continue home carvedilol and losartan. 9. AOCD-stable, monitor CBC. 10. Morbid obesity-encouraged diet and lifestyle modifications. Nutrition/dietitian consult. 11. Qmelrpcrvbjw-qfazog-cezotkfjpkld suspected secondary to hyperglycemia. Anticipate correction with dialysis. DVT prophylaxis-heparin subcu. This patient was seen by MAU Rose under the supervision of Dr. Nava. <Ariela Nava - Last Filed: 06/11/17 14:40> - Physical Exam Vital Signs Temp Pulse Resp BP Pulse Ox 98.7 F 63 14 99/42 L 100 06/11/17 14:34 06/11/17 14:34 06/11/17 14:34 06/11/17 14:34 06/11/17 14:34 Oxygen Flow Rate 2 Oxygen Delivery Method Room Air Weight: 206 lb 9.17 oz Body Mass Index (BMI) 38.6 Intake and Output for Last 24 Hours 06/09/17 06/10/17 06/11/17 23:59 23:59 23:59 Intake Total 1276 / 1276 1377 / 1377 267 / 267 Output Total 2099 Balance -824 / -824 1377 / 1377 267 / 267 Laboratory Tests Past 24 Hrs 06/10/17 06/10/17 06/10/17 16:10 16:10 20:38 WBC RBC Hgb Hct MCV MCH MCHC RDW RDW Differential Plt Count MPV Immature Gran % (Auto) Neut % (Auto) Lymph % (Auto) [place] % (Auto) Eos % (Auto) Baso % (Auto) Absolute Neuts (auto) Absolute Lymphs (auto) Total Counted PT INR APTT 53.2 H Sodium Potassium Chloride Carbon Dioxide BUN Creatinine Estim Creat Clear Calc Est GFR (MDRD) Af Amer Est GFR (MDRD) Non-Af BUN/Creatinine Ratio Glucose Serum Osmolality 309 H Calcium Phosphorus Albumin Urine Color Yellow Urine Clarity Clear Urine pH 5.0 Ur Specific [place] 1.015 Urine Protein 15 H Urine Glucose (UA) 250 H Urine Ketones Negative Urine Occult Blood Negative Urine Nitrite Negative Urine Bilirubin Negative Urine Urobilinogen Normal Ur Leukocyte Esterase 25 H Urine RBC 0 SEEN Urine WBC 0 SEEN Ur Squamous Epith Cells 0-5 SEEN Urine Bacteria 0 SEEN Hyaline Casts 5-10 SEEN Urine Mucus 0 SEEN Urine Osmolality Ur Random Sodium 06/10/17 06/10/17 06/10/17 20:38 20:38 22:50 WBC RBC Hgb Hct MCV MCH MCHC RDW RDW Differential Plt Count MPV Immature Gran % (Auto) Neut % (Auto) Lymph % (Auto) [place] % (Auto) Eos % (Auto) Baso % (Auto) Absolute Neuts (auto) Absolute Lymphs (auto) Total Counted PT INR APTT 79.1 H Sodium Potassium Chloride Carbon Dioxide BUN Creatinine Estim Creat Clear Calc Est GFR (MDRD) Af Amer Est GFR (MDRD) Non-Af BUN/Creatinine Ratio Glucose Serum Osmolality Calcium Phosphorus Albumin Urine Color Urine Clarity Urine pH Ur Specific [place] Urine Protein Urine Glucose (UA) Urine Ketones Urine Occult Blood Urine Nitrite Urine Bilirubin Urine Urobilinogen Ur Leukocyte Esterase Urine RBC Urine WBC Ur Squamous Epith Cells Urine Bacteria Hyaline Casts Urine Mucus Urine Osmolality 366 Ur Random Sodium 45 06/11/17 06/11/17 06/11/17 04:26 04:26 04:26 WBC 11.7 H RBC 2.94 L Hgb 9.1 L Hct 27.9 L MCV 94.9 MCH 31.0 MCHC 32.6 RDW 16.3 H RDW Differential 54.0 H Plt Count 351 MPV 10.0 Immature Gran % (Auto) 0.500 Neut % (Auto) 76.7 H Lymph % (Auto) 11.1 L [place] % (Auto) 11.7 H Eos % (Auto) 0.0 Baso % (Auto) 0.0 Absolute Neuts (auto) 9.0 H Absolute Lymphs (auto) 1.30 Total Counted Not Reportable PT 14.4 INR 1.2 APTT Sodium 130 L Potassium 4.4 Chloride 92 L Carbon Dioxide 27.0 BUN 83 H Creatinine 4.76 H Estim Creat Clear Calc 9.84 Est GFR (MDRD) Af Amer 12 L Est GFR (MDRD) Non-Af 10 L BUN/Creatinine Ratio 17.4 Glucose 156 H Serum Osmolality Calcium 8.6 Phosphorus 2.8 Albumin 2.9 L Urine Color Urine Clarity Urine pH Ur Specific [place] Urine Protein Urine Glucose (UA) Urine Ketones Urine Occult Blood Urine Nitrite Urine Bilirubin Urine Urobilinogen Ur Leukocyte Esterase Urine RBC Urine WBC Ur Squamous Epith Cells Urine Bacteria Hyaline Casts Urine Mucus Urine Osmolality Ur Random Sodium 06/11/17 04:26 WBC RBC Hgb Hct MCV MCH MCHC RDW RDW Differential Plt Count MPV Immature Gran % (Auto) Neut % (Auto) Lymph % (Auto) [place] % (Auto) Eos % (Auto) Baso % (Auto) Absolute Neuts (auto) Absolute Lymphs (auto) Total Counted PT INR APTT 66.6 H Sodium Potassium Chloride Carbon Dioxide BUN Creatinine Estim Creat Clear Calc Est GFR (MDRD) Af Amer Est GFR (MDRD) Non-Af BUN/Creatinine Ratio Glucose Serum Osmolality Calcium Phosphorus Albumin Urine Color Urine Clarity Urine pH Ur Specific [place] Urine Protein Urine Glucose (UA) Urine Ketones Urine Occult Blood Urine Nitrite Urine Bilirubin Urine Urobilinogen Ur Leukocyte Esterase Urine RBC Urine WBC Ur Squamous Epith Cells Urine Bacteria Hyaline Casts Urine Mucus Urine Osmolality Ur Random Sodium POC Glucose 02/19/18 02/19/18 02/18/18 10:30 06:47 21:40 POC Glucose 159 H 149 H 378 H 06/10/17 16:11 POC Glucose 340 H Assessment/Plan Hospitalist note: I am seeing this patient in conjunction with Bianka Hobbs. I independently seen and examined the patient. Progress note above, laboratory data and imaging studies reviewed and I agree with above treatment plan. Patient seen and examined. No acute events overnight. She has no more chest pain. Shortness of breath significantly improved. Her vital signs are stable. - Physical Exam General: Alert, Oriented x3, Cooperative, No apparent distress. HEENT: Atraumatic, PERRLA, EOMI. Neck: Supple, No JVD, Negative Carotid Bruits, Trachea Midline, Thyroid Normal. Lungs: Decreased breath sounds bilateral, otherwise clear, No rhonchi, No wheeze, No rales. Cardiovascular: Regular rate, Regular Rhythm, Normal S1, Normal S2, PMI Normal. Abdomen: Bowel Sounds Present, Soft, Non Tender, Non-Distended, No Hepato-splenomegaly. Extremities: No clubbing, No cyanosis, No edema Skin: No rashes, No breakdown Neurological: Neuro grossly intact Vital Signs are stable. Assessment and plan: #1 acute COPD exacerbation/hypoxia: She is on bronchodilators and prednisone. Chest x-ray showed no acute pneumonia. Symptoms improved, she has been off oxygen, pulse ox is normal on room air. #2 non-ST elevation VT: She is on IV heparin drip, aspirin, statins, Coreg, losartan, isosorbide mononitrate. 2D echocardiogram revealed ejection fraction of 50%, mild segmental systolic dysfunction, RVSP of 56, other findings reviewed. Cardiology consulted, plan for cardiac catheterization tomorrow. #3 ESRD on hemodialysis: On hemodialysis, nephrology consulted. She is on dialysis on Tuesdays, and Saturdays. No indication for urgent or emergent dialysis. #4 other chronic medical problems: CAD status post CABG, chronic diastolic CHF, type 2 diabetes, hypertension, chronic anemia, hyperlipidemia, obstructive sleep apnea: Stable, continue current medications. This note was generated with [employer] software. It may contain incorrect words, spelling, and punctuation that were not noted in checking the note before signing. Code Visit Inpatient E&M: 18643 Subs Hosp L2
--- NOTE | 2017-06-11 14:13 | PN_ITS ---
<Bianka Hobbs - Last Filed: 06/11/17 14:14> Subjective: Patient seen and examined. Denies chest pain overnight. Denies shortness of breath. Patient was not on the Cloth Tester Quality schedule therefore cardiac catheterization has been moved to tomorrow morning. Patient is aware. Denies other complaints. - Physical Exam General: Alert, Oriented x3, Cooperative, No apparent distress HEENT: Atraumatic, PERRLA, EOMI, Normocephalic Neck: Supple, No JVD, Negative Carotid Bruits Lungs: Clear to auscultation, Diminished Cardiovascular: Regular rate, Regular Rhythm, Normal S1, Normal S2, No murmurs Abdomen: Bowel Sounds Present, Soft, Non Tender, Non-Distended, Obese Extremities: No clubbing, No cyanosis, No edema, Capillary Refill Less than 3 Seconds Skin: No rashes, No breakdown Musculoskeletal: No Tenderness to Palpation of Joints or Extremities Neurological: Cranial nerves II-XII grossly intact, Neuro grossly intact Psych/Mental Status: Normal Affect, Appropriate Vital Signs Temp Pulse Resp BP Pulse Ox 98.2 F 61 20 H 118/58 L 97 06/11/17 10:14 06/11/17 11:25 06/11/17 10:41 06/11/17 10:14 06/11/17 10:14 Oxygen Flow Rate 2 Oxygen Delivery Method Room Air Weight: 93.7 kg Body Mass Index (BMI) 38.6 Intake and Output for Last 24 Hours 06/09/17 06/10/17 06/11/17 23:59 23:59 23:59 Intake Total 1276 / 1276 1377 / 1377 267 / 267 Output Total 2100 / 2100 Balance -824 / -824 1377 / 1377 267 / 267 Laboratory Tests Past 24 Hrs 06/10/17 06/10/17 06/10/17 16:10 16:10 20:38 WBC RBC Hgb Hct MCV MCH MCHC RDW RDW Differential Plt Count MPV Immature Gran % (Auto) Neut % (Auto) Lymph % (Auto) [place] % (Auto) Eos % (Auto) Baso % (Auto) Absolute Neuts (auto) Absolute Lymphs (auto) Total Counted PT INR APTT 53.2 H Sodium Potassium Chloride Carbon Dioxide BUN Creatinine Estim Creat Clear Calc Est GFR (MDRD) Af Amer Est GFR (MDRD) Non-Af BUN/Creatinine Ratio Glucose Serum Osmolality 309 H Calcium Phosphorus Albumin Urine Color Yellow Urine Clarity Clear Urine pH 5.0 Ur Specific [place] 1.015 Urine Protein 15 H Urine Glucose (UA) 250 H Urine Ketones Negative Urine Occult Blood Negative Urine Nitrite Negative Urine Bilirubin Negative Urine Urobilinogen Normal Ur Leukocyte Esterase 25 H Urine RBC 0 SEEN Urine WBC 0 SEEN Ur Squamous Epith Cells 0-5 SEEN Urine Bacteria 0 SEEN Hyaline Casts 5-10 SEEN Urine Mucus 0 SEEN Urine Osmolality Ur Random Sodium 06/10/17 06/10/17 06/10/17 20:38 20:38 22:50 WBC RBC Hgb Hct MCV MCH MCHC RDW RDW Differential Plt Count MPV Immature Gran % (Auto) Neut % (Auto) Lymph % (Auto) [place] % (Auto) Eos % (Auto) Baso % (Auto) Absolute Neuts (auto) Absolute Lymphs (auto) Total Counted PT INR APTT 79.1 H Sodium Potassium Chloride Carbon Dioxide BUN Creatinine Estim Creat Clear Calc Est GFR (MDRD) Af Amer Est GFR (MDRD) Non-Af BUN/Creatinine Ratio Glucose Serum Osmolality Calcium Phosphorus Albumin Urine Color Urine Clarity Urine pH Ur Specific [place] Urine Protein Urine Glucose (UA) Urine Ketones Urine Occult Blood Urine Nitrite Urine Bilirubin Urine Urobilinogen Ur Leukocyte Esterase Urine RBC Urine WBC Ur Squamous Epith Cells Urine Bacteria Hyaline Casts Urine Mucus Urine Osmolality 366 Ur Random Sodium 45 06/11/17 06/11/17 06/11/17 04:26 04:26 04:26 WBC 11.7 H RBC 2.94 L Hgb 9.1 L Hct 27.9 L MCV 94.9 MCH 31.0 MCHC 32.6 RDW 16.3 H RDW Differential 54.0 H Plt Count 351 MPV 10.0 Immature Gran % (Auto) 0.500 Neut % (Auto) 76.7 H Lymph % (Auto) 11.1 L [place] % (Auto) 11.7 H Eos % (Auto) 0.0 Baso % (Auto) 0.0 Absolute Neuts (auto) 9.0 H Absolute Lymphs (auto) 1.30 Total Counted Not Reportable PT 14.4 INR 1.2 APTT Sodium 130 L Potassium 4.4 Chloride 92 L Carbon Dioxide 27.0 BUN 83 H Creatinine 4.76 H Estim Creat Clear Calc 9.84 Est GFR (MDRD) Af Amer 12 L Est GFR (MDRD) Non-Af 10 L BUN/Creatinine Ratio 17.4 Glucose 156 H Serum Osmolality Calcium 8.6 Phosphorus 2.8 Albumin 2.9 L Urine Color Urine Clarity Urine pH Ur Specific [place] Urine Protein Urine Glucose (UA) Urine Ketones Urine Occult Blood Urine Nitrite Urine Bilirubin Urine Urobilinogen Ur Leukocyte Esterase Urine RBC Urine WBC Ur Squamous Epith Cells Urine Bacteria Hyaline Casts Urine Mucus Urine Osmolality Ur Random Sodium 06/11/17 04:26 WBC RBC Hgb Hct MCV MCH MCHC RDW RDW Differential Plt Count MPV Immature Gran % (Auto) Neut % (Auto) Lymph % (Auto) [place] % (Auto) Eos % (Auto) Baso % (Auto) Absolute Neuts (auto) Absolute Lymphs (auto) Total Counted PT INR APTT 66.6 H Sodium Potassium Chloride Carbon Dioxide BUN Creatinine Estim Creat Clear Calc Est GFR (MDRD) Af Amer Est GFR (MDRD) Non-Af BUN/Creatinine Ratio Glucose Serum Osmolality Calcium Phosphorus Albumin Urine Color Urine Clarity Urine pH Ur Specific [place] Urine Protein Urine Glucose (UA) Urine Ketones Urine Occult Blood Urine Nitrite Urine Bilirubin Urine Urobilinogen Ur Leukocyte Esterase Urine RBC Urine WBC Ur Squamous Epith Cells Urine Bacteria Hyaline Casts Urine Mucus Urine Osmolality Ur Random Sodium POC Glucose 06/11/17 06/11/17 06/10/17 10:30 06:47 21:40 POC Glucose 159 H 149 H 378 H 06/10/17 16:11 POC Glucose 340 H Assessment/Plan Patient is a 56-year-old female admitted 06/07/17 due to shortness of breath. Her past medical history includes COPD, obstructive sleep apnea, hyperlipidemia , hypertension, coronary artery disease status post coronary artery bypass graft ?3, chronic diastolic CHF, end-stage renal disease on hemodialysis, anemia of chronic disease, type 2 diabetes mellitus, morbid obesity. 1. Acute COPD exacerbation with acute hypoxia-resolved. Continue prednisone 40 mg daily for 5 days. Continue albuterol and DuoNeb aerosols. Respiratory panel negative. Patient is afebrile. Oxygen stable on room air. Patient will need walking pulse ox prior to discharge. 2. MSTEMI-troponin 0.36, 0.62, 0.89, 1.33. EKG with T-wave inversions and ST depression. This is more pronounced compared to prior EKG. Patient follows with Dr. Huang. Patient had cardiac catheterization January 2016 which showed severe two-vessel coronary artery disease, nonobstructive disease of the distal right coronary artery. Continued medical management was recommended at that time. Cardiology suspecting demand ischemia secondary to acute COPD exacerbation /hypoxia. Continue aspirin, Plavix, statin, nitrates, beta-blockers, ranexa, heparin drip. Cardiology consulted. Patient to undergo cardiac catheterization tomorrow. 3. Coronary artery disease status post CABG ?3-continue aspirin, statin, Plavix , beta-ivy. 4. End-stage renal disease-on hemodialysis. Has left forearm AV fistula. T,TH, SAT schedule. Follows with Dr. Rollins who was consulted. Continue dialysis regimen. 5. Obstructive sleep apnea- previously wore CPAP which she has not been compliant with. She previously followed with Dr. Partida. Plans on establishing with Dr. Urbina in which she has an appointment 06/12/2017. Recommend continued use of CPAP. 5. Chronic diastolic CHF-no signs of acute exacerbation. Chest x-ray without signs of CHF on admission. Home Lasix regimen continued. Echocardiogram 2015 showed an estimated ejection fraction of 65%, stage III diastolic dysfunction, mild to moderate tricuspid insufficiency. Repeat echocardiogram shows an estimated ejection fraction of 50%, moderate mitral valve insufficiency, RVSP estimated to be 56 mmHg. 6. Type 2 diabetes mellitus- Hemoglobin A1c 10.3%. Accu-Cheks before meals at bedtime. Insulin regimen adjusted. Blood glucose improved this morning. 7. Hyperlipidemia-continue statin. 8. Hypertension-stable, continue home carvedilol and losartan. 9. AOCD-stable, monitor CBC. 10. Morbid obesity-encouraged diet and lifestyle modifications. Nutrition/ dietitian consult. 11. Xngakpawznwz-wrtdkh-zpfbynnvapfu suspected secondary to hyperglycemia. Anticipate correction with dialysis. DVT prophylaxis-heparin subcu. This patient was seen by MAU Rose under the supervision of Dr. Nava. <Ariela Nava - Last Filed: 06/11/17 14:40> - Physical Exam Vital Signs Temp Pulse Resp BP Pulse Ox 98.7 F 63 14 99/42 L 100 06/11/17 14:34 06/11/17 14:34 06/11/17 14:34 06/11/17 14:34 06/11/17 14:34 Oxygen Flow Rate 2 Oxygen Delivery Method Room Air Weight: 206 lb 9.17 oz Body Mass Index (BMI) 38.6 Intake and Output for Last 24 Hours 06/09/17 06/10/17 06/11/17 23:59 23:59 23:59 Intake Total 1276 / 1276 1377 / 1377 267 / 267 Output Total 2099 Balance -824 / -824 1377 / 1377 267 / 267 Laboratory Tests Past 24 Hrs 06/10/17 06/10/17 06/10/17 16:10 16:10 20:38 WBC RBC Hgb Hct MCV MCH MCHC RDW RDW Differential Plt Count MPV Immature Gran % (Auto) Neut % (Auto) Lymph % (Auto) [place] % (Auto) Eos % (Auto) Baso % (Auto) Absolute Neuts (auto) Absolute Lymphs (auto) Total Counted PT INR APTT 53.2 H Sodium Potassium Chloride Carbon Dioxide BUN Creatinine Estim Creat Clear Calc Est GFR (MDRD) Af Amer Est GFR (MDRD) Non-Af BUN/Creatinine Ratio Glucose Serum Osmolality 309 H Calcium Phosphorus Albumin Urine Color Yellow Urine Clarity Clear Urine pH 5.0 Ur Specific [place] 1.015 Urine Protein 15 H Urine Glucose (UA) 250 H Urine Ketones Negative Urine Occult Blood Negative Urine Nitrite Negative Urine Bilirubin Negative Urine Urobilinogen Normal Ur Leukocyte Esterase 25 H Urine RBC 0 SEEN Urine WBC 0 SEEN Ur Squamous Epith Cells 0-5 SEEN Urine Bacteria 0 SEEN Hyaline Casts 5-10 SEEN Urine Mucus 0 SEEN Urine Osmolality Ur Random Sodium 06/10/17 06/10/17 06/10/17 20:38 20:38 22:50 WBC RBC Hgb Hct MCV MCH MCHC RDW RDW Differential Plt Count MPV Immature Gran % (Auto) Neut % (Auto) Lymph % (Auto) [place] % (Auto) Eos % (Auto) Baso % (Auto) Absolute Neuts (auto) Absolute Lymphs (auto) Total Counted PT INR APTT 79.1 H Sodium Potassium Chloride Carbon Dioxide BUN Creatinine Estim Creat Clear Calc Est GFR (MDRD) Af Amer Est GFR (MDRD) Non-Af BUN/Creatinine Ratio Glucose Serum Osmolality Calcium Phosphorus Albumin Urine Color Urine Clarity Urine pH Ur Specific [place] Urine Protein Urine Glucose (UA) Urine Ketones Urine Occult Blood Urine Nitrite Urine Bilirubin Urine Urobilinogen Ur Leukocyte Esterase Urine RBC Urine WBC Ur Squamous Epith Cells Urine Bacteria Hyaline Casts Urine Mucus Urine Osmolality 366 Ur Random Sodium 45 06/11/17 06/11/17 06/11/17 04:26 04:26 04:26 WBC 11.7 H RBC 2.94 L Hgb 9.1 L Hct 27.9 L MCV 94.9 MCH 31.0 MCHC 32.6 RDW 16.3 H RDW Differential 54.0 H Plt Count 351 MPV 10.0 Immature Gran % (Auto) 0.500 Neut % (Auto) 76.7 H Lymph % (Auto) 11.1 L [place] % (Auto) 11.7 H Eos % (Auto) 0.0 Baso % (Auto) 0.0 Absolute Neuts (auto) 9.0 H Absolute Lymphs (auto) 1.30 Total Counted Not Reportable PT 14.4 INR 1.2 APTT Sodium 130 L Potassium 4.4 Chloride 92 L Carbon Dioxide 27.0 BUN 83 H Creatinine 4.76 H Estim Creat Clear Calc 9.84 Est GFR (MDRD) Af Amer 12 L Est GFR (MDRD) Non-Af 10 L BUN/Creatinine Ratio 17.4 Glucose 156 H Serum Osmolality Calcium 8.6 Phosphorus 2.8 Albumin 2.9 L Urine Color Urine Clarity Urine pH Ur Specific [place] Urine Protein Urine Glucose (UA) Urine Ketones Urine Occult Blood Urine Nitrite Urine Bilirubin Urine Urobilinogen Ur Leukocyte Esterase Urine RBC Urine WBC Ur Squamous Epith Cells Urine Bacteria Hyaline Casts Urine Mucus Urine Osmolality Ur Random Sodium 06/11/17 04:26 WBC RBC Hgb Hct MCV MCH MCHC RDW RDW Differential Plt Count MPV Immature Gran % (Auto) Neut % (Auto) Lymph % (Auto) [place] % (Auto) Eos % (Auto) Baso % (Auto) Absolute Neuts (auto) Absolute Lymphs (auto) Total Counted PT INR APTT 66.6 H Sodium Potassium Chloride Carbon Dioxide BUN Creatinine Estim Creat Clear Calc Est GFR (MDRD) Af Amer Est GFR (MDRD) Non-Af BUN/Creatinine Ratio Glucose Serum Osmolality Calcium Phosphorus Albumin Urine Color Urine Clarity Urine pH Ur Specific [place] Urine Protein Urine Glucose (UA) Urine Ketones Urine Occult Blood Urine Nitrite Urine Bilirubin Urine Urobilinogen Ur Leukocyte Esterase Urine RBC Urine WBC Ur Squamous Epith Cells Urine Bacteria Hyaline Casts Urine Mucus Urine Osmolality Ur Random Sodium POC Glucose 02/19/18 02/19/18 02/18/18 10:30 06:47 21:40 POC Glucose 159 H 149 H 378 H 06/10/17 16:11 POC Glucose 340 H Assessment/Plan Hospitalist note: I am seeing this patient in conjunction with Bianka Hobbs. I independently seen and examined the patient. Progress note above, laboratory data and imaging studies reviewed and I agree with above treatment plan. Patient seen and examined. No acute events overnight. She has no more chest pain. Shortness of breath significantly improved. Her vital signs are stable. - Physical Exam General: Alert, Oriented x3, Cooperative, No apparent distress. HEENT: Atraumatic, PERRLA, EOMI. Neck: Supple, No JVD, Negative Carotid Bruits, Trachea Midline, Thyroid Normal. Lungs: Decreased breath sounds bilateral, otherwise clear, No rhonchi, No wheeze , No rales. Cardiovascular: Regular rate, Regular Rhythm, Normal S1, Normal S2, PMI Normal. Abdomen: Bowel Sounds Present, Soft, Non Tender, Non-Distended, No Hepato- splenomegaly. Extremities: No clubbing, No cyanosis, No edema Skin: No rashes, No breakdown Neurological: Neuro grossly intact Vital Signs are stable. Assessment and plan: #1 acute COPD exacerbation/hypoxia: She is on bronchodilators and prednisone. Chest x-ray showed no acute pneumonia. Symptoms improved, she has been off oxygen, pulse ox is normal on room air. #2 non-ST elevation NE: She is on IV heparin drip, aspirin, statins, Coreg, losartan, isosorbide mononitrate. 2D echocardiogram revealed ejection fraction of 50%, mild segmental systolic dysfunction, RVSP of 56, other findings reviewed. Cardiology consulted, plan for cardiac catheterization tomorrow. #3 ESRD on hemodialysis: On hemodialysis, nephrology consulted. She is on dialysis on Tuesdays, and Saturdays. No indication for urgent or emergent dialysis. #4 other chronic medical problems: CAD status post CABG, chronic diastolic CHF, type 2 diabetes, hypertension, chronic anemia, hyperlipidemia, obstructive sleep apnea: Stable, continue current medications. This note was generated with Alereonation software. It may contain incorrect words, spelling, and punctuation that were not noted in checking the note before signing. Code Visit Inpatient E&M: 98487 Subs Hosp L2
[2017-06-11] MEDS: Calcium Acetate 667 MG Capsule PO ×2 (14:35→16:55)
[2017-06-11 17:01] LABS: Bedside Glucose 279 mg/dL (70-110)
[2017-06-11 20:57] LABS: Partial Thromboplast Time 62.7 Seconds (24.1-36.2)
[2017-06-11] MEDS: Gabapentin 300 MG Capsule PO (22:13)
[2017-06-11] MEDS: Atorvastatin Calcium 80 MG Tablet PO (22:15)
[2017-06-11] MEDS: HEPARIN/D5w 25,000 UNITS 25,000 UNITS/250 ML IV.SOLN. 11 UNITS IV (22:18)
[2017-06-11 22:56] LABS: Bedside Glucose 445 mg/dL (70-110)
--- NOTE | 2017-06-11 23:50 | EKG12_ITS ---
Test Reason : AM EKG Blood Pressure : / mmHG Vent. Rate : 067 BPM Atrial Rate : 067 BPM P-R Int : 166 ms QRS Dur : 100 ms QT Int : 430 ms P-R-T Axes : 067 -50 109 degrees QTc Int : 454 ms Normal sinus rhythm Left axis deviation T wave abnormality, consider lateral ischemia Abnormal ECG When compared with ECG of 12-JUN-2017 00:08, MANUAL COMPARISON REQUIRED, DATA IS UNCONFIRMED Confirmed by OLINDA MUSTAFA ([id number]), slot editor MADDY STERLING ([id number]) on 06/14/2017 3:18:16 PM Referred By: MONIKA Confirmed By:OLINDA MUSTAFA
[2017-06-12] VITALS (38 sets, daily range): BP systolic 102–173; BP diastolic 37–105; PULSE 61–72; RESP 8–23; TEMP 36.1–37.2; O2SAT 94–100
[2017-06-12] MEDS: Albuterol 2.5 MG/3 ML VIAL.NEB. INHALATION (05:32)
[2017-06-12 06:39] LABS: Hematocrit 28.8 % (37-47); Hemoglobin 9.2 g/dl (12.0-15.0); International Normalized Ratio 1.1; Mean Corp Hgb Conc 31.9 g/gl (32-36); Mean Corpuscular Hgb 30.5 pg (27.0-32.0); Mean Corpuscular Volume 95.4 fL (81-99); Mean Platelet Vol. 10.4 fl (6.2-12.0); Platelet Count 368 K/mm3 (150-450); Prothrombin Time (Protime)PT. 14.1 SECONDS (11.7-14.9); RBC Distribution Width CV 16.6 % (11.6-14.6); RBC Distribution Width SD 55.5 fl (35.1-43.9); Red Blood Count 3.02 M/mm3 (4.2-5.4); White Blood Count 10.8 K/mm3 (4.4-11.0)
[2017-06-12 06:40] LABS: Partial Thromboplast Time 58.5 Seconds (24.1-36.2)
[2017-06-12] MEDS: Nitroglycerin Oint 1 INCH PACKET TRANSDERM. ×3 (06:42→21:26)
[2017-06-12] MEDS: Clopidogrel Bisulfate 75 MG Tablet PO (06:45)
[2017-06-12 06:47] LABS: Scan Indicated on CBC? Y/N NO
[2017-06-12] MEDS: Losartan Potassium 50 MG Tablet PO (06:47)
[2017-06-12] MEDS: DiphenhydrAMINE 25 MG Capsule 50 MG PO (06:47)
[2017-06-12] MEDS: Carvedilol 25 MG Tablet PO ×2 (06:47→21:25)
[2017-06-12] MEDS: Isosorbide Mononitrate 60 MG Tablet PO (06:49)
[2017-06-12] MEDS: Aspirin 81 MG TAB.CHEW PO (06:49)
--- NOTE | 2017-06-12 07:00 | EKG12_ITS ---
Test Reason : POST HEARTH CATH Blood Pressure : / mmHG Vent. Rate : 072 BPM Atrial Rate : 072 BPM P-R Int : 172 ms QRS Dur : 110 ms QT Int : 426 ms P-R-T Axes : 065 -49 100 degrees QTc Int : 466 ms Normal sinus rhythm Left axis deviation Nonspecific ST and T wave abnormality Abnormal ECG When compared with ECG of 12-JUN-2017 06:50, MANUAL COMPARISON REQUIRED, DATA IS UNCONFIRMED Confirmed by OLINDA MUSTAFA ([id number]), editor publications MADDY STERLING ([id number]) on 06/14/2017 3:15:50 PM Referred By: MOON Confirmed By:OLINDA MUSTAFA
[2017-06-12 07:06] LABS: Bedside Glucose 330 mg/dL (70-110)
[2017-06-12] MEDS: 0.9% Normal Saline 1,000 ML 15 ML IV (07:06)
[2017-06-12 07:18] LABS: Anion Gap 13 (5-15); BUN 111 mg/dL (7-18); BUN/Creat Ratio 18.9 RATIO (10-20); Calcium,Total 8.5 mg/dL (8.5-10.1); Chloride 91 mmol/L (98-107); Creatinine, Serum 5.86 mg/dL (0.55-1.02); EST Glomerular Filtration Rate 8 mL/min (>60); Est Glom Filt Rate - Afr Amer 10 mL/min (>60); Estimated Creatinine Clearance 7.99 ml/min; Glucose 336 mg/dL (74-106); Potassium 4.7 mmol/L (3.5-5.1); Sodium Level 129 mmol/L (136-145)
--- NOTE | 2017-06-12 09:05 | NURSING ---
report called to su in icu
--- NOTE | 2017-06-12 09:36 | CL.I_ITS ---
Patient Name: REHAN COOK Study Date: 06/12/2017 Performing: Freddie Huang MD Ht: 61.02 inches 155 cm : 1960 Wt: 207.23 lbs 94 kg Age: 56 Gender: female BSA: 1.92 PROCEDURE(S) PERFORMED [id number]/LV/CABG [id number], SINGLE CORONARY ARTERY CLINICAL PROFILE AND CO-MORBIDITIES INDICATIONS: Unstable Angina Stress/Imaging Stress/Image Study Performed: No Stress/Image Study Performed: No Angina Classification Anginal Classification w/in 2 Weeks: CCS IV CAD Presentations: Unstable angina. Comorbidities/Risk Factors: Hypertension Dyslipidemia Prior CHF Prior CABG Diabetes Mellitus: Diabetes Therapy: Insulin CONCLUSIONS Segmented LV systolic dysfunction- Mild Triple vessel CAD of the LM, LCX, LAD Persistent distal anastamotic lesion from SVG to OM#2 Possibly signifcant ischemia in DIAG branch downstream from critical LM lesion. Successful PCI with PTCA to the DISTAL ANASTOMOTIC SITE OF SVG TO OM WITH 1.5, THEN 2.0 BALLOON; 85%- ->10%, NO DISSECTION OR PERFORATION. No additional stenting performed out of concern for restricting retrograde blood flow to hughes AV LC X, as well as lack of anginal symptoms during prolonged balloon inflation. Culprit artery may be hughes DIAG#1 due to LM disease, but to correct LM disease may jeopardize paten t KINCAID. RECOMMENDATIONS Referred for immediate PCI Management as per referring Jewel Oliving Machine Operator Highly recommend quitting all tobacco products Follow up with primary hand candy cutter Risk factor modification ASA Indefinitley Plavix for at least 12 months Routine post interventional care Refer for Outpatient Cardiac Rehab Manual sheath removal per protocol Follow up with Dr. Huang Dialysis today. DESCRIPTION OF PROCEDURE The patient arrived to the procedure lab. The risks and benefits of the procedure as well as a full d escription of our services here and lack of surgical backup were fully explained to the patient and/o r their significant other prior to the catheterization. The Timeout was completed, verifying the ayana ect patient and procedure. The patient's procedural site was prepped and draped in the usual fashion. Local anesthetic was given subcutaneously to right groin region with Lidocaine 2%. Using a modified Seldinger technique, arterial access was obtained via the right femoral artery, a 4Fr sheath was inse rted. Left Coronary Artery selective angiography was performed in multiple views using a 4 Fr. JL5 c atheter. Right Coronary Artery selective angiography was then performed in multiple views using a 4 F r. 3DRC catheter. Saphenous Vein graft to the Circumflex selective angiography was performed in multi ple views using a 4 Fr. 3DRC catheter. Left internal mammary artery graft to the LAD selective angiog saúl was performed in multiple views using a 4 Fr. 3DRC catheterThe images were reviewed and options discussed. A decision was then made to proceed with an Intervention, IVUS or other adjunct procedure . Arterial sheath was exchanged for a 6 Fr Sheath HSII Guide catheter was inserted and engaged into the SVG to the Circumflex. HSII SH Guide catheter was inserted and engaged into the SVG to the Circumfle x. BMW Guide wire was advanced to the 1st OM. Angiogram performed pre balloon dilatation. emerge 1.50 x8 Balloon catheter was inserted. PTCA balloon inflated at 7 atms for 13 secs PTCA balloon inflated a t 8 atms for 17 secs Angiogram performed post balloon dilatation. emerge 2.00x12 Balloon catheter was inserted. PTCA balloon inflated at 6 atms for 100 secs Angiogram performed post balloon dilatation.. . The arterial sheath was sutured in place and capped. CORONARY ANGIOGRAPHY DOMINANCE: Right Dominant LEFT HEART ASSESSMENT Left Ventricular Ejection Fraction: by LV Gram 55 % Depressed Left Ventricular systolic function Inferior Basal Hypokinesis - Mild LEFT MAIN: 85 % Stenosis LEFT ANTERIOR DECENDING ARTERY: Mild luminal irregularities less than 30% DIAGONAL 1: Proximal - Mild luminal irregularities less than 30% CIRCUMFLEX ARTERY: is occluded RIGHT CORONARY ARTERY: Mild luminal irregularities less than 30% RT PDA: Proximal - Mild luminal irregularities less than 30% GRAFTS: KINCAID graft to the Mid LAD is patent Saphenous Vein graft to the 2nd OM has a distal anastomotic lesion of 85 % INTERVENTION INFORMATION LESION SITE: Vein > to 2nd OM Segment Number: 21-Second obtuse marginal branch segment - 2nd OM , [place] Location: Distal Lesion Complexity: Non-High/Non-C, lesion at bifurcation: Yes, thrombus present: No, lesion length: 1 2 mm, culprit lesion: Yes Pre Stenosis: 85 % Pre intervention NITIN flow: 3 PROCEDURE: Balloon Angioplasty Post Stenosis: 10 % Post intervention NITIN flow: 3 COMPLICATIONS No Complications PROCEDURE MEDICATIONS Oxygen: 2 L/min via nasal cannula Heparin 6000 unit(s) IV 06/12/2017 08:50:07 Nitro 200 mcg IC 06/12/2017 08:57:45 Nitro 200 mcg IC 06/12/2017 08:57:45 Nitro 200 mcg IC 06/12/2017 09:03:07 SUMMARY OF HEMODYNAMIC DATA Time AIR REST ECG 08:18:45 AO 149/67 (98) SA 08:27:24 LV 147/-7, 31 08:47:46 LV 149/-7, 31 08:47:52 LVp 153/-6, 26 08:47:57 AOp 151/57 (96) 08:48:02 Signed By Freddie Huang MD On 06/12/2017 12:38:14 Freddie Huang MD
--- NOTE | 2017-06-12 09:50 | PCM.PN.REN ---
Subjective: Underwent heart catheterization with intervention. Currently without chest pain or shortness of breath. Getting ready to start dialysis. - Physical Exam General: Alert, Oriented x3, Cooperative, No apparent distress Lungs: Clear to auscultation Cardiovascular: Regular rate Abdomen: Bowel Sounds Present, Soft, Non Tender, Non-Distended Extremities: No edema Vital Signs Temp Pulse Resp BP Pulse Ox 97 F L 68 18 123/52 H 97 06/12/17 06:40 06/12/17 06:58 06/12/17 06:40 06/12/17 06:40 06/12/17 06:40 Oxygen Flow Rate 2 Oxygen Delivery Method Room Air Weight: 96 kg Body Mass Index (BMI) 38.6 Intake and Output for Last 24 Hours 06/10/17 06/11/17 06/12/17 23:59 23:59 23:59 Intake Total 1377 / 1377 732 / 732 240 / 240 Balance 1377 / 1377 732 / 732 240 / 240 Laboratory Tests Past 24 Hrs 06/11/17 06/12/17 06/12/17 19:26 06:12 06:12 WBC 10.8 RBC 3.02 L Hgb 9.2 L Hct 28.8 L MCV 95.4 MCH 30.5 MCHC 31.9 L RDW 16.6 H RDW Differential 55.5 H Plt Count 368 MPV 10.4 PT 14.1 INR 1.1 APTT 62.7 H 58.5 H Sodium Potassium Chloride Carbon Dioxide Anion Gap BUN Creatinine Estim Creat Clear Calc Est GFR (MDRD) Af Amer Est GFR (MDRD) Non-Af BUN/Creatinine Ratio Glucose Calcium 06/12/17 06:12 WBC RBC Hgb Hct MCV MCH MCHC RDW RDW Differential Plt Count MPV PT INR APTT Sodium 129 L Potassium 4.7 Chloride 91 L Carbon Dioxide 25.0 Anion Gap 13 BUN 111 H* Creatinine 5.86 H Estim Creat Clear Calc 7.99 Est GFR (MDRD) Af Amer 10 L Est GFR (MDRD) Non-Af 8 L BUN/Creatinine Ratio 18.9 Glucose 336 H Calcium 8.5 POC Glucose 06/12/17 06/11/17 06/11/17 07:02 22:27 16:49 POC Glucose 330 H 445 H 279 H 06/11/17 10:30 POC Glucose 159 H Assessment/Plan 1. ESRD HD this morning status post heart cath with PCI. 2. Angina with +troponins. Hx CAD CABG. s/p heart catheterization 3. Anemia hgb stable MORGAN therapy with HD 4. Pseudo-hyponatremia due to hyperglycemia. Correct with dialysis 5. DM2 elevated sugars improved 6. HTN stable
--- NOTE | 2017-06-12 09:58 | EKG12_ITS ---
Test Reason : CP Blood Pressure : / mmHG Vent. Rate : 072 BPM Atrial Rate : 072 BPM P-R Int : 162 ms QRS Dur : 110 ms QT Int : 422 ms P-R-T Axes : 046 -46 120 degrees QTc Int : 462 ms Normal sinus rhythm Left axis deviation ST & T wave abnormality, consider lateral ischemia Prolonged QT Abnormal ECG When compared with ECG of 11-JUN-2017 05:41, MANUAL COMPARISON REQUIRED, DATA IS UNCONFIRMED Confirmed by OLINDA MUSTAFA ([id number]), mapping editor MADDY STERLING ([id number]) on 06/14/2017 3:16:31 PM Referred By: DR LUTHER Confirmed By:OLINDA MUSTAFA
--- NOTE | 2017-06-12 10:36 | PCM.PROGNOTE ---
<Bianka Hobbs - Last Filed: 06/12/17 11:15> Subjective: Patient seen and examined. Resting in bed in no acute distress. Recovering from cardiac catheterization this morning. Currently undergoing dialysis as well. Groin site intact without evidence of hematoma. Patient denies chest pain, shortness of breath. Denies other complaints. - Physical Exam General: Alert, Oriented x3, Cooperative, No apparent distress HEENT: Atraumatic, PERRLA, EOMI, Normocephalic Neck: Supple, No JVD, Negative Carotid Bruits Lungs: Clear to auscultation, Diminished Cardiovascular: Regular rate, Regular Rhythm, Normal S1, Normal S2, No murmurs Abdomen: Bowel Sounds Present, Soft, Non Tender, Non-Distended, Obese Extremities: No clubbing, No cyanosis, No edema, Capillary Refill Less than 3 Seconds Skin: No rashes, No breakdown, - - Post- cath groin site intact without signs of hematoma. Musculoskeletal: No Tenderness to Palpation of Joints or Extremities Neurological: Cranial nerves II-XII grossly intact, Neuro grossly intact Psych/Mental Status: Normal Affect, Appropriate Vital Signs Temp Pulse Resp BP Pulse Ox 97 F L 68 18 123/52 H 97 06/12/17 06:40 06/12/17 06:58 06/12/17 06:40 06/12/17 06:40 06/12/17 06:40 Oxygen Flow Rate 2 Oxygen Delivery Method Room Air Weight: 96 kg Body Mass Index (BMI) 38.6 Intake and Output for Last 24 Hours 06/10/17 06/11/17 06/12/17 23:59 23:59 23:59 Intake Total 1377 / 1377 732 / 732 240 / 240 Balance 1377 / 1377 732 / 732 240 / 240 Laboratory Tests Past 24 Hrs 06/11/17 06/12/17 06/12/17 19:26 06:12 06:12 WBC 10.8 RBC 3.02 L Hgb 9.2 L Hct 28.8 L MCV 95.4 MCH 30.5 MCHC 31.9 L RDW 16.6 H RDW Differential 55.5 H Plt Count 368 MPV 10.4 PT 14.1 INR 1.1 APTT 62.7 H 58.5 H Sodium Potassium Chloride Carbon Dioxide Anion Gap BUN Creatinine Estim Creat Clear Calc Est GFR (MDRD) Af Amer Est GFR (MDRD) Non-Af BUN/Creatinine Ratio Glucose Calcium MRSA (PCR) 06/12/17 06/12/17 06:12 10:00 WBC RBC Hgb Hct MCV MCH MCHC RDW RDW Differential Plt Count MPV PT INR APTT Sodium 129 L Potassium 4.7 Chloride 91 L Carbon Dioxide 25.0 Anion Gap 13 BUN 111 H* Creatinine 5.86 H Estim Creat Clear Calc 7.99 Est GFR (MDRD) Af Amer 10 L Est GFR (MDRD) Non-Af 8 L BUN/Creatinine Ratio 18.9 Glucose 336 H Calcium 8.5 MRSA (PCR) Pending POC Glucose 06/12/17 06/11/17 06/11/17 07:02 22:27 16:49 POC Glucose 330 H 445 H 279 H 06/11/17 10:30 POC Glucose 159 H Assessment/Plan Patient is a 56-year-old female admitted 06/07/17 due to shortness of breath. Her past medical history includes COPD, obstructive sleep apnea, hyperlipidemia, hypertension, coronary artery disease status post coronary artery bypass graft ?3, chronic diastolic CHF, end-stage renal disease on hemodialysis, anemia of chronic disease, type 2 diabetes mellitus, morbid obesity. 1. Acute COPD exacerbation with acute hypoxia-resolved. Continue prednisone 40 mg daily for 5 days (completion date 06/13/17). Continue albuterol and DuoNeb aerosols. Respiratory panel negative. Patient is afebrile. Oxygen stable on room air. Patient will need walking pulse ox prior to discharge. 2. NSTEMI-troponin 0.36, 0.62, 0.89, 1.33. EKG with T-wave inversions and ST depression. This is more pronounced compared to prior EKG. Patient follows with Dr. Huang. Patient had cardiac catheterization January 2016 which showed severe two-vessel coronary artery disease, nonobstructive disease of the distal right coronary artery. Continued medical management was recommended at that time. Cardiac catheterization 06/12/17 demonstrated mild LV systolic dysfunction. Triple vessel CAD of the LM, LCx and LAD. Persistent distal lesion from SVG to OM #2. Possible ischemia and diagrams distal to critical LM lesion. Patient underwent successful PCI with PTCA to the distal SVG to OM with balloon angioplasty. No additional stenting performed due to concern for restrictive blood flow to LCx. Continue aspirin, Plavix, statin, nitrates, beta-blockers, ranexa. Anticipate discharge home tomorrow with continued outpatient cardiology follow-up. 3. Coronary artery disease status post CABG ?3-cardiac catheterization findings and medication regimen as noted above. 4. End-stage renal disease-on hemodialysis. Has left forearm AV fistula. T,TH,SAT schedule. Follows with Dr. Rollins who was consulted. Receiving dialysis today, 06/12/2017. 5. Obstructive sleep apnea- previously wore CPAP which she has not been compliant with. She previously followed with Dr. Partida. Plans on establishing with Dr. Urbina in which she has an appointment 06/12/2017. Recommend continued use of CPAP. 5. Chronic diastolic CHF-no signs of acute exacerbation. Chest x-ray without signs of CHF on admission. Home Lasix regimen continued. Echocardiogram 2015 showed an estimated ejection fraction of 65%, stage III diastolic dysfunction, mild to moderate tricuspid insufficiency. Repeat echocardiogram shows an estimated ejection fraction of 50%, moderate mitral valve insufficiency, RVSP estimated to be 56 mmHg. 6. Type 2 diabetes mellitus- Hemoglobin A1c 10.3%. Accu-Cheks before meals at bedtime. Blood glucose labile. Add scheduled NovoLog with meals and continue to monitor. Patient's Levemir may also need further adjustment as well. 7. Hyperlipidemia-continue statin. 8. Hypertension-stable, continue home carvedilol and losartan. 9. AOCD-stable, monitor CBC. 10. Morbid obesity-encouraged diet and lifestyle modifications. Nutrition/dietitian consult. 11. Taexoubxxwyn-wmdqfe-lnmiqganldvx suspected secondary to hyperglycemia. Anticipate correction with dialysis. DVT prophylaxis-heparin subcu. This patient was seen by MAU Rose under the supervision of Dr. Nava. <Ariela Nava E - Last Filed: 06/12/17 12:37> - Physical Exam Vital Signs Temp Pulse Resp BP Pulse Ox 98.1 F 65 13 118/50 L 99 06/12/17 12:00 06/12/17 12:00 06/12/17 12:00 06/12/17 12:00 06/12/17 12:00 Oxygen Flow Rate 2 Oxygen Delivery Method Nasal Cannula Weight: 211 lb 10.3 oz Body Mass Index (BMI) 38.6 Intake and Output for Last 24 Hours 06/10/17 06/11/17 06/12/17 23:59 23:59 23:59 Intake Total 1377 / 1377 732 / 732 260 / 260 Balance 1377 / 1377 732 / 732 260 / 260 Laboratory Tests Past 24 Hrs 06/11/17 06/12/17 06/12/17 19:26 06:12 06:12 WBC 10.8 RBC 3.02 L Hgb 9.2 L Hct 28.8 L MCV 95.4 MCH 30.5 MCHC 31.9 L RDW 16.6 H RDW Differential 55.5 H Plt Count 368 MPV 10.4 PT 14.1 INR 1.1 APTT 62.7 H 58.5 H Sodium Potassium Chloride Carbon Dioxide Anion Gap BUN Creatinine Estim Creat Clear Calc Est GFR (MDRD) Af Amer Est GFR (MDRD) Non-Af BUN/Creatinine Ratio Glucose Calcium Total Creatine Kinase MRSA (PCR) 06/12/17 06/12/17 06/12/17 06:12 10:00 10:30 WBC RBC Hgb Hct MCV MCH MCHC RDW RDW Differential Plt Count MPV PT INR APTT Sodium 129 L Potassium 4.7 Chloride 91 L Carbon Dioxide 25.0 Anion Gap 13 BUN 111 H* Creatinine 5.86 H Estim Creat Clear Calc 7.99 Est GFR (MDRD) Af Amer 10 L Est GFR (MDRD) Non-Af 8 L BUN/Creatinine Ratio 18.9 Glucose 336 H Calcium 8.5 Total Creatine Kinase 65 MRSA (PCR) Pending 06/12/17 10:30 WBC 9.2 RBC 2.77 L Hgb 8.4 L Hct 26.0 L MCV 93.9 MCH 30.3 MCHC 32.3 RDW 17.1 H RDW Differential 58.8 H Plt Count 341 MPV 9.5 PT INR APTT Sodium Potassium Chloride Carbon Dioxide Anion Gap BUN Creatinine Estim Creat Clear Calc Est GFR (MDRD) Af Amer Est GFR (MDRD) Non-Af BUN/Creatinine Ratio Glucose Calcium Total Creatine Kinase MRSA (PCR) POC Glucose 06/12/17 06/12/17 06/11/17 11:40 07:02 22:27 POC Glucose 167 H 330 H 445 H 06/11/17 16:49 POC Glucose 279 H Assessment/Plan Hospitalist note: I am seeing this patient in conjunction with Bianka Hobbs. I independently seen and examined the patient. Progress note above and I agree with above treatment plan. Patient seen and examined. No acute events overnight. This morning, she denies any symptoms, no chest pain or shortness of breath. She underwent cardiac catheterization with PTCA to distal anastomotic site of the graft to the obtuse marginal artery without stenting. Vital signs are stable. - Physical Exam General: Alert, Oriented x3, Cooperative, No apparent distress. HEENT: Atraumatic, PERRLA, EOMI. Neck: Supple, No JVD, Negative Carotid Bruits, Trachea Midline, Thyroid Normal. Lungs: Decreased breath sounds bilateral, otherwise clear, No rhonchi, No wheeze, No rales. Cardiovascular: Regular rate, Regular Rhythm, Normal S1, Normal S2, PMI Normal. Abdomen: Bowel Sounds Present, Soft, Non Tender, Non-Distended, No Hepato-splenomegaly. Extremities: No clubbing, No cyanosis, No edema Skin: No rashes, No breakdown Neurological: Neuro grossly intact Vital Signs are stable. Assessment and plan: #1 acute COPD exacerbation/hypoxia: She is on bronchodilators and prednisone. Chest x-ray showed no acute pneumonia. Symptoms improved, pulse ox is 100% on 2 L of oxygen at this time. #2 non-ST elevation [place]: Status post cardiac catheterization with PTCA to distal anastomotic site of the graft to the obtuse marginal artery without stenting. She is on aspirin, statins, Coreg, losartan, isosorbide mononitrate. IV heparin drip discontinued. 2D echocardiogram revealed ejection fraction of 50%, mild segmental systolic dysfunction, RVSP of 56, other findings reviewed. #3 ESRD on hemodialysis: On hemodialysis, nephrology consulted. She is on hemodialysis at this time. #4 other chronic medical problems: CAD status post CABG, chronic diastolic CHF, type 2 diabetes, hypertension, chronic anemia, hyperlipidemia, obstructive sleep apnea: Stable, continue current medications. This note was generated with [employer] dictation software. It may contain incorrect words, spelling, and punctuation that were not noted in checking the note before signing. Code Visit Inpatient E&M: 54824 Subs Hosp L2
--- NOTE | 2017-06-12 10:42 | PN_ITS ---
<Bianka Hobbs - Last Filed: 06/12/17 11:15> Subjective: Patient seen and examined. Resting in bed in no acute distress. Recovering from cardiac catheterization this morning. Currently undergoing dialysis as well. Groin site intact without evidence of hematoma. Patient denies chest pain, shortness of breath. Denies other complaints. - Physical Exam General: Alert, Oriented x3, Cooperative, No apparent distress HEENT: Atraumatic, PERRLA, EOMI, Normocephalic Neck: Supple, No JVD, Negative Carotid Bruits Lungs: Clear to auscultation, Diminished Cardiovascular: Regular rate, Regular Rhythm, Normal S1, Normal S2, No murmurs Abdomen: Bowel Sounds Present, Soft, Non Tender, Non-Distended, Obese Extremities: No clubbing, No cyanosis, No edema, Capillary Refill Less than 3 Seconds Skin: No rashes, No breakdown, - - Post- cath groin site intact without signs of hematoma. Musculoskeletal: No Tenderness to Palpation of Joints or Extremities Neurological: Cranial nerves II-XII grossly intact, Neuro grossly intact Psych/Mental Status: Normal Affect, Appropriate Vital Signs Temp Pulse Resp BP Pulse Ox 97 F L 68 18 123/52 H 97 06/12/17 06:40 06/12/17 06:58 06/12/17 06:40 06/12/17 06:40 06/12/17 06:40 Oxygen Flow Rate 2 Oxygen Delivery Method Room Air Weight: 96 kg Body Mass Index (BMI) 38.6 Intake and Output for Last 24 Hours 06/10/17 06/11/17 06/12/17 23:59 23:59 23:59 Intake Total 1377 / 1377 732 / 732 240 / 240 Balance 1377 / 1377 732 / 732 240 / 240 Laboratory Tests Past 24 Hrs 06/11/17 06/12/17 06/12/17 19:26 06:12 06:12 WBC 10.8 RBC 3.02 L Hgb 9.2 L Hct 28.8 L MCV 95.4 MCH 30.5 MCHC 31.9 L RDW 16.6 H RDW Differential 55.5 H Plt Count 368 MPV 10.4 PT 14.1 INR 1.1 APTT 62.7 H 58.5 H Sodium Potassium Chloride Carbon Dioxide Anion Gap BUN Creatinine Estim Creat Clear Calc Est GFR (MDRD) Af Amer Est GFR (MDRD) Non-Af BUN/Creatinine Ratio Glucose Calcium MRSA (PCR) 06/12/17 06/12/17 06:12 10:00 WBC RBC Hgb Hct MCV MCH MCHC RDW RDW Differential Plt Count MPV PT INR APTT Sodium 129 L Potassium 4.7 Chloride 91 L Carbon Dioxide 25.0 Anion Gap 13 BUN 111 H* Creatinine 5.86 H Estim Creat Clear Calc 7.99 Est GFR (MDRD) Af Amer 10 L Est GFR (MDRD) Non-Af 8 L BUN/Creatinine Ratio 18.9 Glucose 336 H Calcium 8.5 MRSA (PCR) Pending POC Glucose 06/12/17 06/11/17 06/11/17 07:02 22:27 16:49 POC Glucose 330 H 445 H 279 H 06/11/17 10:30 POC Glucose 159 H Assessment/Plan Patient is a 56-year-old female admitted 06/07/17 due to shortness of breath. Her past medical history includes COPD, obstructive sleep apnea, hyperlipidemia , hypertension, coronary artery disease status post coronary artery bypass graft ?3, chronic diastolic CHF, end-stage renal disease on hemodialysis, anemia of chronic disease, type 2 diabetes mellitus, morbid obesity. 1. Acute COPD exacerbation with acute hypoxia-resolved. Continue prednisone 40 mg daily for 5 days (completion date 06/13/17). Continue albuterol and DuoNeb aerosols. Respiratory panel negative. Patient is afebrile. Oxygen stable on room air. Patient will need walking pulse ox prior to discharge. 2. NSTEMI-troponin 0.36, 0.62, 0.89, 1.33. EKG with T-wave inversions and ST depression. This is more pronounced compared to prior EKG. Patient follows with Dr. Huang. Patient had cardiac catheterization January 2016 which showed severe two-vessel coronary artery disease, nonobstructive disease of the distal right coronary artery. Continued medical management was recommended at that time. Cardiac catheterization 06/12/17 demonstrated mild LV systolic dysfunction. Triple vessel CAD of the LM, LCx and LAD. Persistent distal lesion from SVG to OM #2. Possible ischemia and diagrams distal to critical LM lesion. Patient underwent successful PCI with PTCA to the distal SVG to OM with balloon angioplasty. No additional stenting performed due to concern for restrictive blood flow to LCx. Continue aspirin, Plavix, statin, nitrates, beta- blockers, ranexa. Anticipate discharge home tomorrow with continued outpatient cardiology follow-up. 3. Coronary artery disease status post CABG ?3-cardiac catheterization findings and medication regimen as noted above. 4. End-stage renal disease-on hemodialysis. Has left forearm AV fistula. T,TH, SAT schedule. Follows with Dr. Rollins who was consulted. Receiving dialysis today , 06/12/2017. 5. Obstructive sleep apnea- previously wore CPAP which she has not been compliant with. She previously followed with Dr. Partida. Plans on establishing with Dr. Urbina in which she has an appointment 06/12/2017. Recommend continued use of CPAP. 5. Chronic diastolic CHF-no signs of acute exacerbation. Chest x-ray without signs of CHF on admission. Home Lasix regimen continued. Echocardiogram 2015 showed an estimated ejection fraction of 65%, stage III diastolic dysfunction, mild to moderate tricuspid insufficiency. Repeat echocardiogram shows an estimated ejection fraction of 50%, moderate mitral valve insufficiency, RVSP estimated to be 56 mmHg. 6. Type 2 diabetes mellitus- Hemoglobin A1c 10.3%. Accu-Cheks before meals at bedtime. Blood glucose labile. Add scheduled NovoLog with meals and continue to monitor. Patient's Levemir may also need further adjustment as well. 7. Hyperlipidemia-continue statin. 8. Hypertension-stable, continue home carvedilol and losartan. 9. AOCD-stable, monitor CBC. 10. Morbid obesity-encouraged diet and lifestyle modifications. Nutrition/ dietitian consult. 11. Wlyvetvsjnzv-hhjyfr-qbzzgxcxduxw suspected secondary to hyperglycemia. Anticipate correction with dialysis. DVT prophylaxis-heparin subcu. This patient was seen by [facility] Rose under the supervision of Dr. Nava. <Ariela Nava E - Last Filed: 06/12/17 12:37> - Physical Exam Vital Signs Temp Pulse Resp BP Pulse Ox 98.1 F 65 13 118/50 L 99 06/12/17 12:00 06/12/17 12:00 06/12/17 12:00 06/12/17 12:00 06/12/17 12:00 Oxygen Flow Rate 2 Oxygen Delivery Method Nasal Cannula Weight: 211 lb 10.3 oz Body Mass Index (BMI) 38.6 Intake and Output for Last 24 Hours 06/10/17 06/11/17 06/12/17 23:59 23:59 23:59 Intake Total 1377 / 1377 732 / 732 260 / 260 Balance 1377 / 1377 732 / 732 260 / 260 Laboratory Tests Past 24 Hrs 06/11/17 06/12/17 06/12/17 19:26 06:12 06:12 WBC 10.8 RBC 3.02 L Hgb 9.2 L Hct 28.8 L MCV 95.4 MCH 30.5 MCHC 31.9 L RDW 16.6 H RDW Differential 55.5 H Plt Count 368 MPV 10.4 PT 14.1 INR 1.1 APTT 62.7 H 58.5 H Sodium Potassium Chloride Carbon Dioxide Anion Gap BUN Creatinine Estim Creat Clear Calc Est GFR (MDRD) Af Amer Est GFR (MDRD) Non-Af BUN/Creatinine Ratio Glucose Calcium Total Creatine Kinase MRSA (PCR) 06/12/17 06/12/17 06/12/17 06:12 10:00 10:30 WBC RBC Hgb Hct MCV MCH MCHC RDW RDW Differential Plt Count MPV PT INR APTT Sodium 129 L Potassium 4.7 Chloride 91 L Carbon Dioxide 25.0 Anion Gap 13 BUN 111 H* Creatinine 5.86 H Estim Creat Clear Calc 7.99 Est GFR (MDRD) Af Amer 10 L Est GFR (MDRD) Non-Af 8 L BUN/Creatinine Ratio 18.9 Glucose 336 H Calcium 8.5 Total Creatine Kinase 65 MRSA (PCR) Pending 06/12/17 10:30 WBC 9.2 RBC 2.77 L Hgb 8.4 L Hct 26.0 L MCV 93.9 MCH 30.3 MCHC 32.3 RDW 17.1 H RDW Differential 58.8 H Plt Count 341 MPV 9.5 PT INR APTT Sodium Potassium Chloride Carbon Dioxide Anion Gap BUN Creatinine Estim Creat Clear Calc Est GFR (MDRD) Af Amer Est GFR (MDRD) Non-Af BUN/Creatinine Ratio Glucose Calcium Total Creatine Kinase MRSA (PCR) POC Glucose 06/12/17 06/12/17 06/11/17 11:40 07:02 22:27 POC Glucose 167 H 330 H 445 H 06/11/17 16:49 POC Glucose 279 H Assessment/Plan Hospitalist note: I am seeing this patient in conjunction with Bianka Hobbs. I independently seen and examined the patient. Progress note above and I agree with above treatment plan. Patient seen and examined. No acute events overnight. This morning, she denies any symptoms, no chest pain or shortness of breath. She underwent cardiac catheterization with PTCA to distal anastomotic site of the graft to the obtuse marginal artery without stenting. Vital signs are stable. - Physical Exam General: Alert, Oriented x3, Cooperative, No apparent distress. HEENT: Atraumatic, PERRLA, EOMI. Neck: Supple, No JVD, Negative Carotid Bruits, Trachea Midline, Thyroid Normal. Lungs: Decreased breath sounds bilateral, otherwise clear, No rhonchi, No wheeze , No rales. Cardiovascular: Regular rate, Regular Rhythm, Normal S1, Normal S2, PMI Normal. Abdomen: Bowel Sounds Present, Soft, Non Tender, Non-Distended, No Hepato- splenomegaly. Extremities: No clubbing, No cyanosis, No edema Skin: No rashes, No breakdown Neurological: Neuro grossly intact Vital Signs are stable. Assessment and plan: #1 acute COPD exacerbation/hypoxia: She is on bronchodilators and prednisone. Chest x-ray showed no acute pneumonia. Symptoms improved, pulse ox is 100% on 2 L of oxygen at this time. #2 non-ST elevation [place]: Status post cardiac catheterization with PTCA to distal anastomotic site of the graft to the obtuse marginal artery without stenting. She is on aspirin, statins, Coreg, losartan, isosorbide mononitrate. IV heparin drip discontinued. 2D echocardiogram revealed ejection fraction of 50% , mild segmental systolic dysfunction, RVSP of 56, other findings reviewed. #3 ESRD on hemodialysis: On hemodialysis, nephrology consulted. She is on hemodialysis at this time. #4 other chronic medical problems: CAD status post CABG, chronic diastolic CHF, type 2 diabetes, hypertension, chronic anemia, hyperlipidemia, obstructive sleep apnea: Stable, continue current medications. This note was generated with [employer] dictation software. It may contain incorrect words, spelling, and punctuation that were not noted in checking the note before signing. Code Visit Inpatient E&M: 68271 Subs Hosp L2
[2017-06-12 11:04] LABS: Hemoglobin 8.4 g/dl (12.0-15.0); Mean Corp Hgb Conc 32.3 g/gl (32-36); Mean Corpuscular Hgb 30.3 pg (27.0-32.0); Mean Corpuscular Volume 93.9 fL (81-99); Mean Platelet Vol. 9.5 fl (6.2-12.0); Platelet Count 341 K/mm3 (150-450); RBC Distribution Width CV 17.1 % (11.6-14.6); RBC Distribution Width SD 58.8 fl (35.1-43.9); Red Blood Count 2.77 M/mm3 (4.2-5.4); Scan Indicated on CBC? Y/N NO; White Blood Count 9.2 K/mm3 (4.4-11.0)
[2017-06-12 11:09] LABS: CPK Total, Creatine Kinase 65 U/L (26-192)
[2017-06-12 11:46] LABS: Bedside Glucose 167 mg/dL (70-110)
[2017-06-12 12:51] LABS: ACT Activated Clotting Time 175 sec (74-137)
[2017-06-12 13:33] LABS: M R Staph aureus DNA By PCR Negative (Negative); Probe Check PASS; Specimen Processing Control PASS
--- NOTE | 2017-06-12 13:42 | CRPHASE1_ITS ---
Patient Data/Charges Reason Not Completed:: Patient has an extensive cardiac history and has previously been in [facility] multiple times. She is very much aware of her risk factors , lifestyle modifications required. Phase II Referral:: [facility] Start Phase II:: 2 weeks post discharge per Dr. jamison Risk Factors/Lifestyle Family History: Family History (Last Reviewed 05/14/17 @ 14:02 by Carmen Mckoy) Father Heart disease Hypertension Prostate cancer Mother Hypertension Laboratory Values: Cardiac Rehab Phase I Labs Hemoglobin A1c 10.3 % (4.2-6.3) H 06/08/17 05:40
--- NOTE | 2017-06-12 13:44 | CRPH1.INST_ITS ---
General Education CAD and cardiac anatomy and function:: Patient communicates acknowledgment Explanation of diagnoses and procedures:: Patient communicates acknowledgment Sign/Symptoms of CT:: Patient communicates acknowledgment Antiplatelet therapy: Patient communicates acknowledgment Smoking Patient Nicotine/Smoking Risk Factors Are:: Non-smoker Dyslipidemia Patient Dyslipidemia Risk Factors Are:: Total Cholesterol, Triglycerides, HDL, LDL Recommendations Include:: Lipid profile not available Dyslipidemia Response Code:: Patient communicates acknowledgment Overweight/Obesity Patient Overweight/Obesity Risk Factors Are:: BMI Normal [18-25 & < 65 years old ], Overweight = 26-29 Recommendations Include:: Weight loss of 5-10%, Reduced calorie diet, Exercise 5 -7 times/week Overweight/Obesity:: Patient communicates acknowledgment Hypertension Recommendations Include:: Maintain BP <130/85, BP <130/80 if diabetic, DASH dietary guidelines, Decrease/maintain normal body weight Hypertension:: Patient communicates acknowledgment Heart Disease Patient Heart Disease Risk Factors Are:: Family history of heart disease < 65 years old Recommendations Include:: Educated family members of their risk Heart Disease Response Code:: Patient communicates acknowledgment Diabetes Patient Diabetes Risk Factors Are:: Elevated blood sugars Recommendations Include:: Maintain fasting blood sugars 70-110 md/dL Diabetes:: Patient communicates acknowledgment Metabolic Syndrome Patient Metabolic Syndrome Risk Factors Are [3 of 5]:: Waist circumference > 35 [female] or 40 [male], Hypertension Recommendations Include:: Reinforce compliance to risk factor modifications, Patient is diabetic Metabolic Syndrome Response Code:: Patient communicates acknowledgment Sedentary Patient Sedentary Risk Factors Are:: Lack of regular exercise Recommendations Include:: Benefits of regular exercise, Discussed home walking program, Monitored Outpatient Cardiac Rehab Sedentary Response Code:: Patient communicates acknowledgment Stress Recommendations Include:: Identification of stressors, and assessment of coping skills, Stress management techniques Stress Response Code:: Patient communicates acknowledgment
[2017-06-12 14:30] LABS: ACT Activated Clotting Time 114 sec (74-137)
[2017-06-12] MEDS: Ranolazine 500 MG Tablet PO ×2 (15:29→21:26)
[2017-06-12] MEDS: 0.9% NaCl Peripheral Flush Adult/Peds IV (15:29)
[2017-06-12] MEDS: Vitamin B Comp W-C Capsule 1 CAP PO (15:29)
[2017-06-12] MEDS: Atropine Sulfate 1% 2 ml Bottle 1 DRP PO (15:30)
[2017-06-12] MEDS: Famotidine 20 MG Tablet PO (15:31)
[2017-06-12] MEDS: Furosemide 80 MG Tablet PO (15:32)
[2017-06-12] MEDS: Citalopram 20 MG Tablet PO (15:32)
[2017-06-12] MEDS: guaiFENesin 600 MG Tablet PO ×2 (15:32→21:26)
[2017-06-12] MEDS: Timolol 0.5% 5ML OPTH.BTL 1 DRP LEFT EYE ×2 (15:33→21:25)
[2017-06-12] MEDS: Pyridoxine HCl 100 MG Tablet PO (15:34)
[2017-06-12] MEDS: Ipratropium/Albuterol Sulfate 3 ML AMPUL.NEB INHALATION ×2 (15:41→19:42)
[2017-06-12 15:51] LABS: Bedside Glucose 135 mg/dL (70-110)
[2017-06-12 15:57] LABS: Hematocrit 27.6 % (37-47); Mean Corp Hgb Conc 32.6 g/gl (32-36); Mean Corpuscular Hgb 30.4 pg (27.0-32.0); Mean Corpuscular Volume 93.2 fL (81-99); Mean Platelet Vol. 9.4 fl (6.2-12.0); Platelet Count 329 K/mm3 (150-450); RBC Distribution Width CV 17.1 % (11.6-14.6); RBC Distribution Width SD 58.4 fl (35.1-43.9); Red Blood Count 2.96 M/mm3 (4.2-5.4); White Blood Count 8.8 K/mm3 (4.4-11.0)
[2017-06-12 16:07] LABS: CPK Total, Creatine Kinase 67 U/L (26-192); Scan Indicated on CBC? Y/N NO
[2017-06-12] MEDS: Calcium Acetate 667 MG Capsule PO (16:42)
[2017-06-12] MEDS: Atropine Sulfate 1% 2 ml Bottle 1 DRP RIGHT EYE (21:24)
[2017-06-12] MEDS: Atorvastatin Calcium 80 MG Tablet PO (21:25)
[2017-06-12] MEDS: Gabapentin 300 MG Capsule PO (21:26)
[2017-06-12 23:40] LABS: Hematocrit 28.1 % (37-47); Mean Corpuscular Hgb 30.1 pg (27.0-32.0); Mean Platelet Vol. 9.6 fl (6.2-12.0); Platelet Count 349 K/mm3 (150-450); RBC Distribution Width CV 17.3 % (11.6-14.6); RBC Distribution Width SD 58.8 fl (35.1-43.9); Red Blood Count 2.99 M/mm3 (4.2-5.4)
[2017-06-12 23:42] LABS: Scan Indicated on CBC? Y/N NO
[2017-06-12 23:56] LABS: CPK Total, Creatine Kinase 65 U/L (26-192)
[2017-06-13] VITALS (17 sets, daily range): BP systolic 122–168; BP diastolic 33–72; PULSE 61–73; RESP 8–23; TEMP 36.1–37.3; O2SAT 94–100
[2017-06-13 00:51] LABS: Bedside Glucose 247 mg/dL (70-110)
[2017-06-13 04:58] LABS: Hematocrit 27.3 % (37-47); Hemoglobin 8.7 g/dl (12.0-15.0); Mean Corp Hgb Conc 31.9 g/gl (32-36); Mean Corpuscular Hgb 29.9 pg (27.0-32.0); Mean Corpuscular Volume 93.8 fL (81-99); Mean Platelet Vol. 9.5 fl (6.2-12.0); Platelet Count 339 K/mm3 (150-450); RBC Distribution Width CV 17.3 % (11.6-14.6); RBC Distribution Width SD 59.6 fl (35.1-43.9); Red Blood Count 2.91 M/mm3 (4.2-5.4); White Blood Count 9.1 K/mm3 (4.4-11.0)
[2017-06-13 05:02] LABS: Scan Indicated on CBC? Y/N NO
[2017-06-13 05:22] LABS: Anion Gap 10 (5-15); BUN 63 mg/dL (7-18); BUN/Creat Ratio 15.9 RATIO (10-20); Chloride 92 mmol/L (98-107); Creatinine, Serum 3.97 mg/dL (0.55-1.02); EST Glomerular Filtration Rate 12 mL/min (>60); Est Glom Filt Rate - Afr Amer 15 mL/min (>60); Glucose 328 mg/dL (74-106); Potassium 4.8 mmol/L (3.5-5.1); Sodium Level 131 mmol/L (136-145)
[2017-06-13] MEDS: Nitroglycerin Oint 1 INCH PACKET TRANSDERM. (05:49)
[2017-06-13] MEDS: Ipratropium/Albuterol Sulfate 3 ML AMPUL.NEB INHALATION ×2 (06:43→11:20)
[2017-06-13 07:21] LABS: Bedside Glucose 315 mg/dL (70-110)
[2017-06-13] MEDS: Aspirin 81 MG TAB.CHEW PO (08:12)
[2017-06-13] MEDS: Calcium Acetate 667 MG Capsule PO (08:12)
[2017-06-13] MEDS: Vitamin B Comp W-C Capsule 1 CAP PO (08:13)
[2017-06-13 08:31] LABS: Bedside Glucose 297 mg/dL (70-110)
--- NOTE | 2017-06-13 09:08 | PCM.PN.BLA ---
Progress Note Pt. will be scheduled for a blood pressure follow-up with the [facility] Manager Care Management in two weeks in the office because her Imdur has been adjusted while in the hospital. She will be scheduled to see Dr. Huang in the [facility] Office in approximately 6 weeks. The patient will be contacted by the [facility] office with the dates and times of these appointments.
--- NOTE | 2017-06-13 09:37 | PCM.DC ---
You will use the following diet at home:: Calorie/Carbohydrate Controlled (specify 1200, 1400, etc), Cardiac Discharge Activity: - - Follow post-op cath instructions. Call your doctor if your incision/area has: Continuous Slow Oozing, Sudden Increased Bleeding, Increased Pain/ Swelling, Increased Redness, Foul Smelling Discharge, Swelling at the incision site Call your doctor if you observe: Shortness of breath, Dizziness, Fainting spells, Chest pain, Increased palpitations (irregular heartbeat) Allergies/Adverse Reactions: Allergies lisinopril Allergy (Verified 06/07/17 05:35) Unknown ranitidine HCl [From Zantac] Allergy (Verified 06/07/17 05:35) Hives azithromycin Adverse Reaction (Verified 06/07/17 05:35) Nausea/Vom/Diarrhea Medications to take at Discharge Amlodipine [Norvasc] 10 mg PO DAILY 06/07/17 Aspirin [Aspirin, Baby] 81 mg PO DAILY@0800 06/07/17 Atorvastatin Calcium [Lipitor] 80 mg PO QHS 06/07/17 Atropine Sulfate in 0.9% NaCl [Atropine 0.01%-Ns Eye Drops] 1 drop OP BID 06/07/17 Brimonidine Tartrate 0.2% [Brimonidine 0.2% 5Ml Bottle] 1 drop RIGHT EYE TID 06/07/17 Calcitriol [Rocaltrol] 0.5 mcg PO DAILY 06/07/17 Calcium Acetate 667 mg PO TIDCM 06/07/17 Carvedilol [Coreg] 25 mg PO BID 06/07/17 Citalopram Hydrobromide [Celexa] 20 mg PO DAILY 06/07/17 Clopidogrel Bisulfate [Plavix] 75 mg PO DAILY 06/07/17 Ergocalciferol [Vitamin D] 50,000 unit PO QWEEK 06/07/17 Famotidine [Pepcid] 40 mg PO DAILY 06/07/17 Furosemide [Lasix] 80 mg PO DAILY 06/07/17 Gabapentin [Neurontin] 300 mg PO QHS 06/07/17 Insulin Glargine,Hum.rec.anlog [Toujeo Solostar] 52 unit SQ DAILY 06/07/17 Losartan Potassium [Cozaar] 50 mg PO DAILY 06/07/17 Pyridoxine HCl (Vitamin B6) [B-6] 100 mg PO DAILY 06/07/17 Ranolazine [Ranexa] 500 mg PO BID 06/07/17 Sennosides [Senna] 8.6 mg PO QHS PRN 06/07/17 Timolol Maleate [Timoptic-XE 0.5%] 1 drop RIGHT EYE TID 06/07/17 Vitamin B Complex/Folic Acid [B-Complex Tablet] 0.4 mg PO DAILY 06/07/17 Albuterol Aerosols [Ventolin Aerosols] 2.5 mg INHALATION Q4H PRN PRN #30 vial.neb. 06/13/17 Budesonide Inhaler 90 mcg [Pulmicort Flexhaler 90 mcg] 2 puff INHALATION BID #1 inhaler 06/13/17 Insulin Aspart [Novolog Flexpen] See Protocol SC TIDAC #1 flexpen 06/13/17 Isosorbide Mononitrate [Imdur] 60 mg PO BID #60 tab 06/13/17 The following prescriptions were given: Albuterol Aerosols [Ventolin Aerosols] 2.5 mg INHALATION Q4H PRN PRN #30 vial.neb. PRN Reason: SOB/WHEEZE Insulin Aspart [Novolog Flexpen] See Protocol SC TIDAC #1 flexpen Budesonide Inhaler 90 mcg [Pulmicort Flexhaler 90 mcg] 2 puff INHALATION BID #1 inhaler Isosorbide Mononitrate [Imdur] 60 mg PO BID #60 tab Primary Care Physician: Brayden King Chi, MD [Primary Care Provider] - Please follow up with your Primary Care Physician in: 1 Week Please Follow Up With: Israel Urbina DO When: 1 Week Please Follow Up With: Freddie Huang MD When: 6 Weeks Proposed Discharge Date: 06/13/17
--- NOTE | 2017-06-13 09:41 | DS.PCM_ITS ---
<Bianka Hobbs - Last Filed: 06/13/17 10:01> Discharge Date and Diagnosis Date of Admission: 06/07/17 Date of Discharge: 06/13/17 - Primary Discharge Diagnosis 1. Non-ST elevation MS 2. Acute COPD exacerbation with acute hypoxia 3. Uncontrolled type 2 diabetes mellitus 4. Pseudohyponatremia-secondary to hyperglycemia. 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 No pneumonia. No failure. No pleural effusions. Electronically Signed: Dimitrios Vanesa, at 6:30 EST Tel , Service support , Dr. Huang- Cardiology Dr. Rollins-Nephrology Dr. Urbina-Pulmonary Operations: None Procedures: 2-D Echocardiogram, Cardiac catheterization, Dialysis Summary of Care Provided: Patient is a 56-year-old female admitted 06/07/17 due to shortness of breath. Her past medical history includes COPD, obstructive sleep apnea, hyperlipidemia , hypertension, coronary artery disease status post coronary artery bypass graft ?3, chronic diastolic CHF, end-stage renal disease on hemodialysis, anemia of chronic disease, type 2 diabetes mellitus, morbid obesity. 1. Acute COPD exacerbation with acute hypoxia-mild, resolved. Completed prednisone 40 mg daily for 5 days. Continue albuterol aerosols at discharge. Patient was started on Pulmicort 2 puffs twice daily. She will follow-up with Dr. Urbina in 1 week. Walking pulse ox completed prior to discharge. Patient is stable on room air. 2. Non-ST elevation MS -patient follows with Dr. Huang. Patient had cardiac catheterization January 2016 which showed severe two-vessel coronary artery disease, nonobstructive disease of the distal right coronary artery. Continued medical management was recommended at that time. Cardiac catheterization demonstrated mild LV systolic dysfunction. Triple vessel CAD of the LM, LCx and LAD. Persistent distal lesion from SVG to OM #2. Possible ischemia and diagrams distal to critical LM lesion. Patient underwent successful PTCA to the distal SVG to OM with balloon angioplasty. No additional stenting performed due to concern for restrictive blood flow to LCx. Continue aspirin, Plavix, statin, nitrates, beta-blockers, ranexa. Patient's Imdur was increased to 60 mg twice daily. Patient will follow up with Dr. Huang in 6 weeks. 3. Coronary artery disease status post CABG ?3-cardiac catheterization findings and medication regimen as noted above. 4. End-stage renal disease-on hemodialysis. Has left forearm AV fistula. T,TH, SAT schedule. Follows with Dr. Rollins who was consulted. Receiving dialysis 2017. Continue outpatient regimen at discharge. 5. Obstructive sleep apnea- previously wore CPAP which she has not been compliant with. She previously followed with Dr. Partida. Plans on establishing with Dr. Urbina. She had an appointment 06/12/2017 which she was not able to attend due to hospitalization. Patient will reschedule for 1 week. Recommend continued use of CPAP. 5. Chronic diastolic CHF-no signs of acute exacerbation. Chest x-ray without signs of CHF on admission. Home Lasix regimen continued. Echocardiogram 2015 showed an estimated ejection fraction of 65%, stage III diastolic dysfunction, mild to moderate tricuspid insufficiency. Repeat echocardiogram shows an estimated ejection fraction of 50%, moderate mitral valve insufficiency, RVSP estimated to be 56 mmHg. 6. Type 2 diabetes mellitus- Hemoglobin A1c 10.3%. It appears patient was only on Toujeo at home with no short acting coverage with meals. Patient will continue home long-acting insulin regimen. She was started on NovoLog high- dose sliding scale at discharge as well. She will need to monitor blood glucose before meals and at bedtime. Recommend further monitoring and medication adjustments as outpatient by primary care physician. 7. Hyperlipidemia-continue statin. 8. Hypertension-stable, continue home regimen. 9. AOCD-stable. 10. Morbid obesity-encouraged diet and lifestyle modifications. 11. Bmcybwzudbbn-jobsgn-wxgeokfwgatp suspected secondary to hyperglycemia. Improved with dialysis. General: Alert, Oriented x3, Cooperative, No apparent distress HEENT: Atraumatic, PERRLA, EOMI, Normocephalic Neck: Supple, No JVD, Negative Carotid Bruits Lungs: Clear to auscultation, Diminished Cardiovascular: Regular rate, Regular Rhythm, Normal S1, Normal S2, No murmurs Abdomen: Bowel Sounds Present, Soft, Non Tender, Non-Distended, Obese Extremities: No clubbing, No cyanosis, No edema, Capillary Refill Less than 3 Seconds Skin: No rashes, No breakdown, - - Post- cath groin site intact without signs of hematoma. Musculoskeletal: No Tenderness to Palpation of Joints or Extremities Neurological: Cranial nerves II-XII grossly intact, Neuro grossly intact Psych/Mental Status: Normal Affect, Appropriate Patient seen and examined prior to discharge. Physical assessment as noted above. Right groin site intact without signs of hematoma. Patient denies further chest pain. She is stable for discharge home with recommendations as noted above. This patient was seen by [facility] Rose under the supervision of Dr. Nvaa. Discharge Diet: Low fat/ Low Cholesterol, Carb Control Diet Discharge Activity: - - Follow post-op cath instructions. Call your doctor if your incision/area has: Continuous Slow Oozing, Sudden Increased Bleeding, Increased Pain/ Swelling, Increased Redness, Foul Smelling Discharge, Swelling at the incision site Call your doctor if you observe: Shortness of breath, Dizziness, Fainting spells , Chest pain, Increased palpitations (irregular heartbeat) Home Medications: Medications to take at Discharge Amlodipine [Norvasc] 10 mg PO DAILY 06/07/17 Aspirin [Aspirin, Baby] 81 mg PO DAILY@0800 06/07/17 Atorvastatin Calcium [Lipitor] 80 mg PO QHS 06/07/17 Atropine Sulfate in 0.9% NaCl [Atropine 0.01%-Ns Eye Drops] 1 drop OP BID Brimonidine Tartrate 0.2% [Brimonidine 0.2% 5Ml Bottle] 1 drop RIGHT EYE TID Calcitriol [Rocaltrol] 0.5 mcg PO DAILY 06/07/17 Calcium Acetate 667 mg PO TIDCM 06/07/17 Carvedilol [Coreg] 25 mg PO BID 06/07/17 Citalopram Hydrobromide [Celexa] 20 mg PO DAILY 06/07/17 Clopidogrel Bisulfate [Plavix] 75 mg PO DAILY 06/07/17 Ergocalciferol [Vitamin D] 50,000 unit PO QWEEK 06/07/17 Famotidine [Pepcid] 40 mg PO DAILY 06/07/17 Furosemide [Lasix] 80 mg PO DAILY 06/07/17 Gabapentin [Neurontin] 300 mg PO QHS 06/07/17 Insulin Glargine,Hum.rec.anlog [Toujeo Solostar] 52 unit SQ DAILY 06/07/17 Losartan Potassium [Cozaar] 50 mg PO DAILY 06/07/17 Pyridoxine HCl (Vitamin B6) [B-6] 100 mg PO DAILY 06/07/17 Ranolazine [Ranexa] 500 mg PO BID 06/07/17 Sennosides [Senna] 8.6 mg PO QHS PRN 06/07/17 Timolol Maleate [Timoptic-XE 0.5%] 1 drop RIGHT EYE TID 06/07/17 Vitamin B Complex/Folic Acid [B-Complex Tablet] 0.4 mg PO DAILY 06/07/17 Albuterol Aerosols [Ventolin Aerosols] 2.5 mg INHALATION Q4H PRN PRN #30 vial.neb. 06/13/17 Budesonide Inhaler 90 mcg [Pulmicort Flexhaler 90 mcg] 2 puff INHALATION BID #1 inhaler 06/13/17 Insulin Aspart [Novolog Flexpen] See Protocol SC TIDAC #1 flexpen 06/13/17 Isosorbide Mononitrate [Imdur] 60 mg PO BID #60 tab 06/13/17 Following Prescrptions Were Given to Patient: Albuterol Aerosols [Ventolin Aerosols] 2.5 mg INHALATION Q4H PRN PRN #30 vial.neb. PRN Reason: SOB/WHEEZE Insulin Aspart [Novolog Flexpen] See Protocol SC TIDAC #1 flexpen Budesonide Inhaler 90 mcg [Pulmicort Flexhaler 90 mcg] 2 puff INHALATION BID #1 inhaler Isosorbide Mononitrate [Imdur] 60 mg PO BID #60 tab Primary Care Physician: Brayden King Chi, MD [Primary Care Provider] - Please follow up with your Primary Care Physician in: 1 Week Please Follow Up With: Israel Urbina DO When: 1 Week Please Follow Up With: Freddie Huang MD When: 6 Weeks Please Follow Up With: Elena Rollins DO When: As scheduled Disposition: Home Minutes spent on discharge:: 35 Patient Condition:: Stable Meaningful Use Info Meaningful Use Diagnoses (Choose all that apply): None applicable <BrandyAriela E - Last Filed: 06/13/17 15:17> Discharge Date and Diagnosis - Secondary Discharge Diagnosis Chronic Problems (Last Reviewed 05/14/17 @ 14:02 by Carmen Mckoy) angioplasty of arteriovenous fistula (Chronic ~01/2017) Encounter for long-term (current) use of other medications (Chronic) Abnormal stress test (Chronic) AV fistula (Chronic) Morbid obesity (Chronic) Diabetes mellitus type 2 in obese (Chronic) Anemia in chronic renal disease (Chronic) End-stage renal disease on hemodialysis (Chronic) Diastolic congestive heart failure (Chronic) 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 Patient seen and examined on the day of discharge and appeared to be stable to be discharged home. She was admitted for shortness of breath and she was found to have acute COPD exacerbation with hypoxia as well as non-ST elevation MS. She was treated with bronchodilators and steroids for COPD exacerbation. Her chest x-ray showed no acute infiltrate , pneumonia ruled out. She was found to have acute non-ST elevation MS and she underwent cardiac catheterization with PTCA to distal anastomotic site of the graft to the obtuse marginal artery without stenting. She was treated with aspirin, statins, Coreg, losartan and isosorbide mononitrate. Initially, she was treated with IV heparin drip. 2D echocardiogram revealed ejection fraction of 50%, mild segmental systolic dysfunction and RVSP of 56. With above- mentioned treatment, patient symptoms improved, her shortness of breath resolved and she was able to maintain his O2 saturation normally on room air. Her other vital signs were stable. She had no more chest pain. Patient was continued on hemodialysis with her regular scheduled. There was no need for urgent or emergent hemodialysis. Patient discharged home in a stable medical condition, discharged on the same medication that has been taken before admission, started on isosorbide mononitrate, recommended follow-up with PCP in 1 week and with cardiology in 6 weeks, follow-up with Dr. Rollins as scheduled. . Code Visit Inpatient E&M: [id number] Disch Hosp
[2017-06-13] MEDS: Furosemide 80 MG Tablet PO (09:54)
[2017-06-13] MEDS: Isosorbide Mononitrate 60 MG Tablet PO (09:54)
[2017-06-13] MEDS: Pyridoxine HCl 100 MG Tablet PO (09:54)
[2017-06-13] MEDS: Clopidogrel Bisulfate 75 MG Tablet PO (09:54)
[2017-06-13] MEDS: Ranolazine 500 MG Tablet PO (09:54)
[2017-06-13] MEDS: guaiFENesin 600 MG Tablet PO (09:54)
[2017-06-13] MEDS: Citalopram 20 MG Tablet PO (09:54)
[2017-06-13] MEDS: Losartan Potassium 50 MG Tablet PO (09:54)
[2017-06-13] MEDS: Famotidine 20 MG Tablet PO (09:55)
[2017-06-13] MEDS: Carvedilol 25 MG Tablet PO (09:55)
--- NOTE | 2017-06-13 09:58 | EKG12_ITS ---
Test Reason : MORNING EKG Blood Pressure : / mmHG Vent. Rate : 065 BPM Atrial Rate : 065 BPM P-R Int : 170 ms QRS Dur : 096 ms QT Int : 456 ms P-R-T Axes : 059 -46 107 degrees QTc Int : 474 ms Normal sinus rhythm Left axis deviation Nonspecific T wave abnormality Prolonged QT Poor R wave progression Abnormal ECG Confirmed by KELVIN ZARAGOZA, JOCELYNE ([id number]), research editor MADDY STERLING ([id number]) on 06/15/2017 1:49:36 PM Referred By: Confirmed By:JOCELYNE WARREN MD
[2017-06-13] MEDS: Atropine Sulfate 1% 2 ml Bottle 1 DRP RIGHT EYE (10:02)
[2017-06-13] MEDS: Timolol 0.5% 5ML OPTH.BTL 1 DRP LEFT EYE (10:02)
[2017-06-14 16:40] LABS: HEPATITIS B SURFACE AG Negative (Negative)
--- NOTE | 2017-06-15 13:44 | CASEMGMT ---
This RN JACKSON completed follow-up phone call with patient and noted patient has home health, but no documentation of resumption or handoff provided to [facility], patient home care agency. ABDIAS PAZ called [facility] and spoke to Mandi, clinical intake, who states a resumption will be ordered from the PCP and the patient gave [facility] her discharge instructions. Per [facility], they have already been out to reopen the case. No further action required. LANCE RothmanN, RN-BC, CCM
== END 2017-06-13 12:10 | disposition home or self-care (01) | DRG 468 ==
LOC: ED 06:38 → PCU 08:34 → ICU 06-12 14:17 → PCU 06-13 09:07
PROVIDERS: Internal Medicine Cardiovascular Disease; Internal Medicine Nephrology; Nurse Practitioner Family; Student in an Organized Health Care Education/Training Program; Emergency Provider Emergency Medicine; Family Provider Family Medicine Geriatric Medicine; PCP Family Medicine Geriatric Medicine; Visit Provider Hospitalist
DX: J44.1 Chronic obstructive pulmonary disease with (acute) exacerbation (principal); I21.4 Non-ST elevation (NSTEMI) myocardial infarction; I13.2 Hypertensive heart and chronic kidney disease with heart failure and with stage 5 chronic kidney disease, or end stage renal disease; E66.01 Morbid (severe) obesity due to excess calories; E11.22 Type 2 diabetes mellitus with diabetic chronic kidney disease; I25.110 Atherosclerotic heart disease of native coronary artery with unstable angina pectoris; N18.6 End stage renal disease; E11.65 Type 2 diabetes mellitus with hyperglycemia; Z99.2 Dependence on renal dialysis; I50.32 Chronic diastolic (congestive) heart failure; E87.1 Hypo-osmolality and hyponatremia; R09.02 Hypoxemia; Z68.38 Body mass index [BMI] 38.0-38.9, adult; E78.5 Hyperlipidemia, unspecified; N25.81 Secondary hyperparathyroidism of renal origin; H40.9 Unspecified glaucoma; G47.33 Obstructive sleep apnea (adult) (pediatric); D63.1 Anemia in chronic kidney disease; Z79.899 Other long term (current) drug therapy; Z95.1 Presence of aortocoronary bypass graft; I25.710 Atherosclerosis of autologous vein coronary artery bypass graft(s) with unstable angina pectoris; Z87.891 Personal history of nicotine dependence; Z79.4 Long term (current) use of insulin
CPT/HCPCS: 36415; 71045; 80048; 80069; 81001; 82550; 82962; 83036; 83605; 83930; 83935; 84300; 84484; 85025; 85027; 85347; 85610; 85730; 87340; 87633; 87641; 90937; 92920; 93005; 93306; 93459; 94640; 94667; 94668; 97110; 97116; 97162; 97166; 97530; 99285; J7030; J7040; Q9967; A4216; C1725; C1769; C1887; C1894; G0257

== ENCOUNTER → 2017-07-06 12:52 | Outpatient (CLI) | payer MEDICAID, SELFPAY ==
--- NOTE | 2017-07-06 12:58 | PCM.CR.ITP ---
Exercise - Initial Assessment - Visit Date of Eval: 07/06/17 - inital visit - Stages of Change Stages of Change:: Contemplate, Action - Exercise Prescription Mode:: Biodyne, Airdyne, NuStep Angina with exercise?: Yes - if doing alot of activity. Target Heart Rate:: resting HR plus 20 BPM. - Hypertension Do any of the following apply?: Yes Resting Blood Pressure:: 150/60 - Intervention Home Exercise/Activity Goal:: Sitting Time <3 hrs/day - Education Goals:: Warm-up, RPE MAGD[place] Scale, S/S, Safe Exercise, Self-Monitoring - Exercise Program Goals Exercise Program Goals: Aerobic Activity >30 min Exercise - 30-day Assessment - Stages of Change Stages of Change:: Action - Exercise Prescription Mode:: Airdyne, NuStep Frequency (x/week): 3 Duration:: 30 METs - Progression: 0.5-1 MET as tolerated: 2.5 Target Heart Rate:: Rest + 20 - Intervention Home Exercise/Activity Goal:: Moderate Exercise 30 min/day x 5 days/wk - Education Goals:: Warm-up, RPE MAGD[place] Scale, S/S, Safe Exercise, Self-Monitoring - Exercise Program Goals Exercise Program Goals: Aerobic Activity >30 min Exercise - 60-Day Assessment - Visit Date of Eval: 02/16/17 - Stages of Change Stages of Change:: Action - Exercise Prescription Mode:: NuStep, Arm Ergometer Frequency (x/week): 3 Duration:: 30 METs: 3.5 Target Heart Rate:: rest + 30BPM max HR 94 - Hypertension Medication Changes:: No - Intervention Home Exercise/Activity Goal:: Sitting Time <3 hrs/day - Education Goals:: Warm-up, RPE [place] Scale, S/S, Safe Exercise, Self-Monitoring - Exercise Program Goals Exercise Program Goals: Aerobic Activity >30 min Exercise - 90-Day Assessment - Visit Date of Eval: 02/16/17 - Stages of Change Stages of Change:: Action - Exercise Prescription Mode:: NuStep, Arm Ergometer Frequency (x/week): 3 Duration:: 30 METs: 3.5 Target Heart Rate:: rest + 30BPM max HR 94 - Hypertension Medication Changes:: No - Intervention Home Exercise/Activity Goal:: Sitting Time <3 hrs/day - Education Goals:: Warm-up, RPE [place] Scale, S/S, Safe Exercise, Self-Monitoring - Exercise Program Goals Exercise Program Goals: Aerobic Activity >30 min Exercise - Final/Discharge - Visit Date of Eval: 03/19/17 - Stages of Change Stages of Change:: Action - Exercise Prescription Mode:: Biodyne, NuStep, Arm Ergometer Frequency (x/week): 3 - Routine Chronic Dialysis patient Duration:: 35 METs: 3.5 Target Heart Rate:: Rest HR + 30 BPM - Hypertension Do any of the following apply?: Yes - Intervention Home Exercise/Activity Goal:: Sitting Time <3 hrs/day - Education Goal Progress: Goal Met - Exercise Program Goals Exercise Program Goals: Aerobic Activity >30 min Nutrition - Initial Assessment - Program Goals Nutrition Program Goals: LDL <70. Total Cholesterol <200. HDL >45. Triglycerides <150. HgbA1C <7%. BMI <25 - Visit Date of Assessment:: 07/06/17 - Stages of Change Stages of Change:: Contemplate - Diabetes Diabetes:: Yes Hgb A1C: 7.6 Do you monitor your blood sugar at home?: Yes - Weight Management Height: 1.55 m Weight:: 91.172 kg Body Fat %:: 38 Total Score:: 2 - Intervention Referral to dietitian:: Yes Referral to Diabetic Clinic:: Yes Will attend diet classes:: Yes - Education Gave educational materials for:: Signs & symptoms of hypoglycemia, Signs & symptoms of hyperglycemia, Relate diabetes to coronary artery disease, Healthy eating Nutrition - 30-Day Assessment - Program Goals Nutrition Program Goals: LDL <70. Total Cholesterol <200. HDL >45. Triglycerides <150. HgbA1C <7%. BMI <25 - Stages of Change Stages of Change:: Action - Lipids Has the patient seen the dietitian?: No - Diabetes Diabetes:: Yes Hgb A1C: 7.6 - Intervention Referral to dietitian:: Yes Referral to Diabetic Clinic:: Yes Will attend diet classes:: Yes - Education Attended class for:: Signs & symptoms of hypoglycemia, Signs & symptoms of hyperglycemia, Relate diabetes to coronary artery disease, Healthy eating Nutrition - 60-Day Assessment - Program Goals Nutrition Program Goals: LDL <70. Total Cholesterol <200. HDL >45. Triglycerides <150. HgbA1C <7%. BMI <25 - Visit Date of Eval: 02/16/17 - Stages of Change Stages of Change:: Action - Lipids Has the patient seen the dietitian?: No - Diabetes Diabetes:: Yes Hgb A1C: 7.6 - Intervention Referral to dietitian:: Yes Referral to Diabetic Clinic:: Yes Will attend diet classes:: Yes - Education Attended class for:: Signs & symptoms of hypoglycemia, Signs & symptoms of hyperglycemia, Relate diabetes to coronary artery disease, Healthy eating Nutrition - 90-Day Assessment - Program Goals Nutrition Program Goals: LDL <70. Total Cholesterol <200. HDL >45. Triglycerides <150. HgbA1C <7%. BMI <25 - Visit Date of Eval: 02/16/17 - Stages of Change Stages of Change:: Action - Lipids Has the patient seen the dietitian?: No - Diabetes Diabetes:: Yes Hgb A1C: 7.6 - Intervention Referral to dietitian:: Yes Referral to Diabetic Clinic:: Yes Will attend diet classes:: Yes - Education Attended class for:: Signs & symptoms of hypoglycemia, Signs & symptoms of hyperglycemia, Relate diabetes to coronary artery disease, Healthy eating Nutrition - Final Assessment - Program Goals Nutrition Program Goals: LDL <70. Total Cholesterol <200. HDL >45. Triglycerides <150. HgbA1C <7%. BMI <25 - Visit Date of Eval: 03/19/17 - Stages of Change Stages of Change:: Action - Diabetes Diabetes:: Yes Hgb A1C: 7.6 - Weight Management Body Fat %:: 38 Total Score:: 11 - Intervention Referral to dietitian:: Yes Referral to Diabetic Clinic:: Yes Will attend diet classes:: Yes Tobacco - Initial Assessment - Program Goals Tobacco Program Goals: Complete smoking cessation. Attend education classes. Improve Knowledge Test score - Stage of Change Stages of Change:: Contemplate, Action - Learning Barriers Learning Barriers: Vision - retinopathy, limited vision right, legally blind in left eye. Total Score:: 8 - Family Support Do you have family support?: Yes - Tobacco Use Tobacco Use: Non-smoker How long ago did you quit using tobacco products?: Greater than or equal to 6 months ago Do you use smokeless tobacco?: No - Intervention Smoking Cessation Referral:: No Individual Education/Counseling:: No Education Schedule Given:: Yes - Education Gave educational material for:: Coronary artery disease, Risk factors, Sexuality, Medical compliance, Cardiac A&P, Angina signs & symptoms Tobacco - 30-Day Assessment - Program Goals Tobacco Program Goals: Complete smoking cessation. Attend education classes. Improve Knowledge Test score - Stage of Change Stages of Change:: Action - Learning Barriers Learning Barriers: Participates in education - Family Support Do you have family support?: Yes - Tobacco Use Do you use smokeless tobacco?: No - Intervention Smoking Cessation Referral:: No Individual Education/Counseling:: No Education Schedule Given:: Yes - Education Attended class for:: Coronary artery disease, Risk factors, Sexuality, Medical compliance, Cardiac A&P, Angina signs & symptoms Tobacco - 60-Day Assessment - Program Goals Tobacco Program Goals: Complete smoking cessation. Attend education classes. Improve Knowledge Test score - Stage of Change Stages of Change:: Action - Learning Barriers Learning Barriers: Participates in education - Family Support Do you have family support?: Yes - Tobacco Use Do you use smokeless tobacco?: No - Intervention Smoking Cessation Referral:: No Individual Education/Counseling:: No Education Schedule Given:: Yes - Education Attended class for:: Coronary artery disease, Risk factors, Sexuality, Medical compliance, Cardiac A&P, Angina signs & symptoms Tobacco - 90-Day Assessment - Program Goals Tobacco Program Goals: Complete smoking cessation. Attend education classes. Improve Knowledge Test score - Stage of Change Stages of Change:: Action - Learning Barriers Learning Barriers: Participates in education - Family Support Do you have family support?: Yes - Tobacco Use Do you use smokeless tobacco?: No - Intervention Smoking Cessation Referral:: No Individual Education/Counseling:: No Education Schedule Given:: Yes - Education Attended class for:: Coronary artery disease, Risk factors, Sexuality, Medical compliance, Cardiac A&P, Angina signs & symptoms Tobacco - Final Assessment - Program Goals Tobacco Program Goals: Complete smoking cessation. Attend education classes. Improve Knowledge Test score - Learning Barriers Cardiac Knowledge Test Score:: 9 - Family Support Do you have family support?: Yes - Tobacco Use Do you use smokeless tobacco?: No - Intervention Smoking Cessation Referral:: No Individual Education/Counseling:: No Education Schedule Given:: Yes - Education Education Goal Reached?: Yes Psychosocial - Initial Assess - Target Goals Target Goals: Assess presence or absence of depression. Using a valid screening tool, maximizes coping skills. Positive support system - Stages of Change Stages of Change:: Action - Psychosocial Test Tool Used:: HANDS Depression Questionnaire Tests Completed: SF - 36 survey completed, Mood Scale Test Total Mood Screening Score:: 13 Self-Efficacy Score:: 7 - Intervention PS - Interventions: Yes Uses Stress Management Skills, No Referral to Mental Health, No Referral to [facility] Case Management, No Referral to Physician, No Attend Stress Management Classes - Patient/Program Goal Preventative Medication(s):: Aspirin, SABINA inhibitor, Clopidogrel, Beta ivy, Statin/lipid - Assistive Devices Assistive Devices:: Cane Fall Risk Assessed:: Yes Psychosocial - 30-Day Assess - Target Goals Target Goals: Assess presence or absence of depression. Using a valid screening tool, maximizes coping skills. Positive support system - Stages of Change Stages of Change:: Action - Psychosocial Test Tool Used:: HANDS Depression Questionnaire Self-Efficacy Score:: 6 - Patient/Program Goal Preventative Medication(s):: Aspirin, SABINA inhibitor, Clopidogrel, Beta ivy, Statin/lipid - Assistive Devices Assistive Devices:: Cane Fall Risk Assessed:: Yes Psychosocial - 60-Day Assess - Target Goals Target Goals: Assess presence or absence of depression. Using a valid screening tool, maximizes coping skills. Positive support system - Stages of Change Stages of Change:: Action - Psychosocial Test Tool Used:: HANDS Depression Questionnaire Self-Efficacy Score:: 6 - Patient/Program Goal Preventative Medication(s):: Aspirin, SABINA inhibitor, Clopidogrel, Beta ivy, Statin/lipid - Assistive Devices Assistive Devices:: Cane Fall Risk Assessed:: Yes Psychosocial - 90-Day Assess - Target Goals Target Goals: Assess presence or absence of depression. Using a valid screening tool, maximizes coping skills. Positive support system - Stages of Change Stages of Change:: Action - Psychosocial Test Tool Used:: HANDS Depression Questionnaire Self-Efficacy Score:: 6 - Patient/Program Goal Preventative Medication(s):: Aspirin, SABINA inhibitor, Clopidogrel, Beta ivy, Statin/lipid - Assistive Devices Assistive Devices:: Cane Fall Risk Assessed:: Yes Psychosocial - Final Assessmen - Target Goals Target Goals: Assess presence or absence of depression. Using a valid screening tool, maximizes coping skills. Positive support system - Stages of Change Stages of Change:: Action - Psychosocial Test Tool Used:: HANDS Depression Questionnaire Tests Completed: SF - 36 survey completed, Mood Scale Test Self-Efficacy Score:: 6 - Education Education Goal Reached?: Yes - Patient/Program Goal Preventative Medication(s):: Aspirin, SABINA inhibitor, Clopidogrel, Beta ivy, Statin/lipid - Assistive Devices Assistive Devices:: Cane Fall Risk Assessed:: Yes Patient Health Questionnaire Initial Assessment 1. Little interest or pleasure in doing things: More than half the days 2. Feeling down, depressed, or hopeless: Several days 3. Trouble falling or staying asleep, or sleeping too much: Nearly every day 4. Feeling tired or having little energy: Nearly every day 5. Poor appetite or overeating: Nearly every day 6. Feeling bad about yourself -- or that you are a failure or have let yourself or your family down: Several days 7. Trouble concentrating on things, such as reading the newspaper or watching television: Not at all 8. Moving or speaking so slowly that other people could have noticed. Or the opposite - being so fidgety or restless that you have been moving around a lot more than usual: Not at all 9. Thoughts that you would be better off , or of hurting yourself in some way: Not at all How difficult have these problems made it for you to do your work, take care of things at home, or get along with other people?: Somewhat difficult Total Score: 13 Knowledge Test - Check your knowledge Initial The #1 cause of in the [place] each year is:: Heart disease Which of the following is a common treatment for heart disease?: All of the above The arteries that feed the heart are called:: Coronary arteries HDL cholesterol is known as the good cholesterol.: True What disease increases your risk for heart disease?: Diabetes What food product raises blood cholesterol level the most?: Saturated fat The bad cholesterol in the blood is called:: LDL Hypertension is another word for:: High blood pressure A blood pressure reading of 148/88 is considered normal.: True Exercise will only benefit your health when your heart rate reaches a target level.: True Total Score:: 8 Self-Efficacy Initial Assessment We would like to know how confident you are in doing certain activities. Please select your confidence level for:: Select your confidence level for the following using the scale 1-10 where 1 is not at all confident and 10 is totally confident. Your score is the average of all 6 responses. Fatigue: How confident are you that you can keep the fatigue caused by your disease from interfering with the things you want to do? Select Number: 5 Physical Discomfort or Pain: How confident are you that you can keep the physical discomfort or pain of your disease from interfering with the things you want to do? Select Number: 5 Emotional Distress: How confident are you that you can keep the emotional distress caused by your disease from interfering with the things you want to do? Select Number: 8 Other Symptoms or Health Problems: How confident are you that you can keep other symptoms or health problems from interfering with the things you want to do? Select Number: 8 Different Tasks and Activities: How confident are you that you can do the different tasks and activities needed to manage your health condition so as to reduce your need to see a doctor? Select Number: 8 Medication: How confident are you that you can do things other than just taking medication to reduce how much your illness affects your everyday life? Select Number: 9 Total Score:: 7 Nutrition Survey - Nutrition Survey Instructions Scoring Instructions: Scoring is as follows: Yes = 1 points. No = 0 point. Patient score that is >/=12 is considered to be at potential nutritional risk and could benefit from a referral to a registered dietitian. - Nutrition Survey Initial Have you lost >10 lbs over the past 2 months without trying?: No Are you following a special diet at home for diabetes, low fat, or low salt?: Yes Are you interested in meeting with a dietitian for help understanding your diet?: No Do you eat less than 3 meals a day?: Yes Do you eat fatty meats (cornelius, sausage, ribs, etc), fried foods, desserts, large amounts of salad dressings, margarine, butter, or cheese most days?: No Do you have food allergies? [Enter types in comment field]: No Do you eat in restaurants more than 3 times a week?: No Do you season food with salt, seasoning salt, or garlic salt?: No Do you used canned, boxed, frozen meals, or soups, seasoning packets?: No Total Score:: 2 Cardiac Rehabilitation Goals - Cardiac Rehab Goals Cardiac Rehabilitation Goals: 1. Maintain the individual as the primary focus of care. 2. To improve the patient's quality of life. 3. Identification of cardiac risk factors and provide cardiac risk factor management. 4. Enhance the psychosocial status of the patient. 5. Reconditioning enough to allow the patient to resume customary activities. 6. Control symptoms of cardiac disease - Scale Scale for measuring improvement of personal goals: Enter appropriate number in Comments. 2 = Unchanged. 3 = Slightly Better. 4 = Moderate Improvement. 5 = Met my Goal Initial Assessment Personal Goals: 30-day Re-assessment: Improve energy level, Get back to work, or to resume activities faster, Improve muscle strength and endurance, Improve diet and eating habits (eat healthier), Control risk factors (learn risk factor modification)
--- NOTE | 2017-07-06 12:58 | PCM.CR.HP2 ---
CR - History & Physical - General Arrival date:: 07/06/17 Arrival time:: 12:59 Referring Physician: Dr. Cote Primary Diagnosis: Z98.61, I21.4, I25.810 06/07/2017 - History of Present Cardiac Event Onset Date: Enter Onset Date of cardiac illnesses in Comment field below GA:: Yes PTCA:: Yes - Medications Home Medications: Ambulatory Orders Medication Instructions Recorded Amlodipine [Norvasc] 10 mg PO DAILY 06/07/17 Aspirin [Aspirin, Baby] 81 mg PO DAILY@0800 06/07/17 Atorvastatin Calcium [Lipitor] 80 mg PO QHS 06/07/17 Atropine Sulfate in 0.9% NaCl 1 drop OP BID 06/07/17 [Atropine 0.01%-Ns Eye Drops] Brimonidine Tartrate 0.2% 1 drop RIGHT EYE TID 06/07/17 [Brimonidine 0.2% 5Ml Bottle] Calcitriol [Rocaltrol] 0.5 mcg PO DAILY 06/07/17 Calcium Acetate 667 mg PO TIDCM 06/07/17 Carvedilol [Coreg] 25 mg PO BID 06/07/17 Citalopram Hydrobromide [Celexa] 20 mg PO DAILY 06/07/17 Clopidogrel Bisulfate [Plavix] 75 mg PO DAILY 06/07/17 Ergocalciferol [Vitamin D] 50,000 unit PO QWEEK 06/07/17 Famotidine [Pepcid] 40 mg PO DAILY 06/07/17 Furosemide [Lasix] 80 mg PO DAILY 06/07/17 Gabapentin [Neurontin] 300 mg PO QHS 06/07/17 Insulin Glargine,Hum.rec.anlog 52 unit SQ DAILY 06/07/17 [Toujeo Solostar] Losartan Potassium [Cozaar] 50 mg PO DAILY 06/07/17 Pyridoxine HCl (Vitamin B6) [B-6] 100 mg PO DAILY 06/07/17 Ranolazine [Ranexa] 500 mg PO BID 06/07/17 Sennosides [Senna] 8.6 mg PO QHS PRN 06/07/17 Timolol Maleate [Timoptic-XE 0.5%] 1 drop RIGHT EYE TID 06/07/17 Vitamin B Complex/Folic Acid 0.4 mg PO DAILY 06/07/17 [B-Complex Tablet] Albuterol Aerosols [Ventolin 2.5 mg INHALATION Q4H PRN PRN #30 06/13/17 Aerosols] vial.neb. Budesonide Inhaler 90 mcg 2 puff INHALATION BID #1 inhaler 06/13/17 [Pulmicort Flexhaler 90 mcg] Insulin Aspart [Novolog Flexpen] See Protocol SC TIDAC #1 flexpen 06/13/17 Isosorbide Mononitrate [Imdur] 60 mg PO BID #60 tab 06/13/17 - Allergies Allergies/Adverse Reactions: Allergies lisinopril Allergy (Verified 06/07/17 05:35) Unknown ranitidine HCl [From Zantac] Allergy (Verified 06/07/17 05:35) Hives azithromycin Adverse Reaction (Verified 06/07/17 05:35) Nausea/Vom/Diarrhea - Sleep Disorder Evaluation Hx of Sleep Apnea: Yes Do you snore loudly (louder than talking or can be heard through closed doors)?: Yes Do you often feel tired/ fatigued/ sleepy during daytime?: Yes Has anyone observed you stop breathing during sleep?: Yes - uses machine History of Hypertension (for STOP score): Yes STOP Results: Positive Advanced Directives - Advanced Directives Power of Help Desk Representative: Yes Living Will: Yes Advance Directives Information Provided: Yes Advance Directives on File: Yes DNR Order?:: No Past Medical History - Problems and Co-Morbidities Problems & Co-Morbidities: Dyslipidemia, Diabetes, Obesity, Hypertension, Sedentary Lifestyle - Past Medical Illness Past Medical Illness: Diabetes, Lung or Breathing Problems, Kidney/Renal Problems - Past Cardiac Illness Past Cardiac Illness: CHF, Coronary Artery Disease, Myocardial Infarction, Previous PCI w/Stent, Coronary Artery Bypass Graft - Other Other: Vision/Eye Problems - Cardiology Procedures/Interventions Cardiology Procedures/Interventions: Angioplasty, Heart Catheterization - Past Surgical History Surgical History: angioplasty, cataract, coronary bypass surgery - x3v, hysterectomy, - - AVF placement, back surgery - Family History Summary Family History: Heart Disease: Paternal Review of Systems - Review of Systems Hints: Right click = Denies ([place]). Left click = Reports ([place]) Review of Present Symptoms: Reports: Shortness of Breath with Exertion, Fatigue, Sleep - Normal. Denies: Shortness of Breath at Rest, PVD, Operative Discomfort, Angina, Wound Healing, Dizziness/Lightheadedness, Heart Arrhythmia/Irregularities, Appetite - Normal, Appetite - Special Diet, Sexual Changes Risk Factor Assessment - Chief Complaint Chief Complaint: CP, SOB - Pulse Pulse Rate: 85 - 96% SPO2 Pulse Rhythm: Regular - Hypertension Blood Pressure Sitting - Right Arm: 150/60 - Stress Stress: Long-standing - Diabetes Diabetic History: Type II Nutrition Referral for Diabetes: Yes - Obesity Height: 1.55 m Weight:: 91.172 kg Weight in Pounds: 201.0 lbs Body Mass Index (BMI): 38.0 Nutritional Referral for Obesity: No - Physical Inactivity Physical Inactivity: None - Risk Stratification Risk Guidelines: Lowest Risk: Risk Factor for Smoking, Risk Factor for Depression, Moderate Risk: Risk Factor for Dyslipidemia, Risk Factor for Diabetes, Risk Factor for Obesity, Risk Factor for Hypertension, Risk Factor for Sedentary Lifestyle - For Smoking Smoking Risk Guidelines: Smoking Low Risk: None or quit greater than 6 months ago. Smoking Moderate Risk: Smoker or quit 6 months or less ago. Smoking High Risk: Smoker - For Dyslipidemia Dyslipidemia Risk Guidelines: Low Risk: Moderate Risk: High Risk: 15-25% fat 25.1-29% fat >/= 30% fat. <7% sat fat 7-9% sat fat >9% sat fat. <150 mg chol 150-299 mg chol >/= 300 mg chol. LDL <100 LDL 100-129 LDL >/= 130. Chol/HDL ratio <5.0 Chol/HDL ratio 5.0-6.0 Chol/HDL ratio >6.0. Triglycerides <100 Triglycerides 100-149 Triglycerides >/= 150 - For Diabetes Mellitus Diabetes Risk Guidelines: Diabetes Low Risk: HgA1c <6.5% and/or FBG <120. Diabetes Moderate Risk: HgA1c 6.6-7.9% and/or FBG 120-180. Diabetes High Risk: HgA1c >/= 8% and/or FBG >180 - For Obesity/Overweight Obesity/Overweight Risk Guidelines: Obesity Low Risk: BMI <25.0. Obesity Moderate Risk: BMI 25-29.9. Obesity High Risk: BMI >/= 30.0 - For Hypertension Hypertension Risk Guidelines: Hypertension Low Risk: Systolic <120 and Diastolic <80. Hypertension Moderate Risk: Systolic 120-139 and Diastolic 80-89. Hypertension High Risk: Systolic >/= 140 and Diastolic >/= 90 - For Sedentary Lifestyle Sedentary Lifestyle Risk Guidelines: Sedentary Lifestyle Low Risk: >/= 1,500 kcal/week. Sedentary Lifestyle Moderate Risk: 700-1,499 kcal/week. Sedentary Lifestyle High Risk: < 700 kcal/week - For Depression Depression Risk Guidelines: Depression Low Risk: Not clinically depressed. Depression Moderate Risk: Mildly depressed. Depression High Risk: Clinically depressed - Family History Family History: Family History (Last Reviewed 05/14/17 @ 14:02 by Carmen Mckoy) Father Heart disease Hypertension Prostate cancer Mother Hypertension Social History - Smoking History Smoking Status: Former smoker Hx Tobacco Use: Yes Hx Smoking Exposure: Yes - Alcohol Use Alcohol Usage: No - Substance Abuse Hx Substance Use: No - Occupation Occupation (List type of work in comments):: Retired - Hobbies, Recreation, Social Activities Hobbies: Other - reading Recreational Activities: I can hardly do any recreational activities Marital Status - Status Marital Status: - Current Living Arrangements Living Environment:: Family - Children How many children do you have?: 4 Do any of your children live nearby?: Yes - Safety Do you feel safe in your surroundings?: Yes - Assistance Do you need any assistance at home?: has home health
--- NOTE | 2017-07-06 13:09 | CR.HP_ITS ---
CR - History & Physical - General Arrival date:: 07/06/17 Arrival time:: 12:59 Referring Physician: Dr. Cote Primary Diagnosis: Z98.61, I21.4, I25.810 06/07/2017 - History of Present Cardiac Event Onset Date: Enter Onset Date of cardiac illnesses in Comment field below AK:: Yes PTCA:: Yes - Medications Home Medications: Ambulatory Orders Medication Instructions Recorded Amlodipine [Norvasc] 10 mg PO DAILY 06/07/17 Aspirin [Aspirin, Baby] 81 mg PO DAILY@0800 06/07/17 Atorvastatin Calcium [Lipitor] 80 mg PO QHS 06/07/17 Atropine Sulfate in 0.9% NaCl 1 drop OP BID 06/07/17 [Atropine 0.01%-Ns Eye Drops] Brimonidine Tartrate 0.2% 1 drop RIGHT EYE TID 06/07/17 [Brimonidine 0.2% 5Ml Bottle] Calcitriol [Rocaltrol] 0.5 mcg PO DAILY 06/07/17 Calcium Acetate 667 mg PO TIDCM 06/07/17 Carvedilol [Coreg] 25 mg PO BID 06/07/17 Citalopram Hydrobromide [Celexa] 20 mg PO DAILY 06/07/17 Clopidogrel Bisulfate [Plavix] 75 mg PO DAILY 06/07/17 Ergocalciferol [Vitamin D] 50,000 unit PO QWEEK 06/07/17 Famotidine [Pepcid] 40 mg PO DAILY 06/07/17 Furosemide [Lasix] 80 mg PO DAILY 06/07/17 Gabapentin [Neurontin] 300 mg PO QHS 06/07/17 Insulin Glargine,Hum.rec.anlog 52 unit SQ DAILY 06/07/17 [Toujeo Solostar] Losartan Potassium [Cozaar] 50 mg PO DAILY 06/07/17 Pyridoxine HCl (Vitamin B6) [B-6] 100 mg PO DAILY 06/07/17 Ranolazine [Ranexa] 500 mg PO BID 06/07/17 Sennosides [Senna] 8.6 mg PO QHS PRN 06/07/17 Timolol Maleate [Timoptic-XE 0.5%] 1 drop RIGHT EYE TID 06/07/17 Vitamin B Complex/Folic Acid 0.4 mg PO DAILY 06/07/17 [B-Complex Tablet] Albuterol Aerosols [Ventolin 2.5 mg INHALATION Q4H PRN PRN #30 06/13/17 Aerosols] vial.neb. Budesonide Inhaler 90 mcg 2 puff INHALATION BID #1 inhaler 06/13/17 [Pulmicort Flexhaler 90 mcg] Insulin Aspart [Novolog Flexpen] See Protocol SC TIDAC #1 flexpen 06/13/17 Isosorbide Mononitrate [Imdur] 60 mg PO BID #60 tab 06/13/17 - Allergies Allergies/Adverse Reactions: Allergies lisinopril Allergy (Verified 06/07/17 05:35) Unknown ranitidine HCl [From Zantac] Allergy (Verified 06/07/17 05:35) Hives azithromycin Adverse Reaction (Verified 06/07/17 05:35) Nausea/Vom/Diarrhea - Sleep Disorder Evaluation Hx of Sleep Apnea: Yes Do you snore loudly (louder than talking or can be heard through closed doors)? : Yes Do you often feel tired/ fatigued/ sleepy during daytime?: Yes Has anyone observed you stop breathing during sleep?: Yes - uses machine History of Hypertension (for STOP score): Yes STOP Results: Positive Advanced Directives - Advanced Directives Power of Tooth Polisher: Yes Living Will: Yes Advance Directives Information Provided: Yes Advance Directives on File: Yes DNR Order?:: No Past Medical History - Problems and Co-Morbidities Problems & Co-Morbidities: Dyslipidemia, Diabetes, Obesity, Hypertension, Sedentary Lifestyle - Past Medical Illness Past Medical Illness: Diabetes, Lung or Breathing Problems, Kidney/Renal Problems - Past Cardiac Illness Past Cardiac Illness: CHF, Coronary Artery Disease, Myocardial Infarction, Previous PCI w/Stent, Coronary Artery Bypass Graft - Other Other: Vision/Eye Problems - Cardiology Procedures/Interventions Cardiology Procedures/Interventions: Angioplasty, Heart Catheterization - Past Surgical History Surgical History: angioplasty, cataract, coronary bypass surgery - x3v, hysterectomy, - - AVF placement, back surgery - Family History Summary Family History: Heart Disease: Paternal Review of Systems - Review of Systems Hints: Right click = Denies (Slash). Left click = Reports ([place]) Review of Present Symptoms: Reports: Shortness of Breath with Exertion, Fatigue , Sleep - Normal. Denies: Shortness of Breath at Rest, PVD, Operative Discomfort, Angina, Wound Healing, Dizziness/Lightheadedness, Heart Arrhythmia/ Irregularities, Appetite - Normal, Appetite - Special Diet, Sexual Changes Risk Factor Assessment - Chief Complaint Chief Complaint: CP, SOB - Pulse Pulse Rate: 85 - 96% SPO2 Pulse Rhythm: Regular - Hypertension Blood Pressure Sitting - Right Arm: 150/60 - Stress Stress: Long-standing - Diabetes Diabetic History: Type II Nutrition Referral for Diabetes: Yes - Obesity Height: 1.55 m Weight:: 91.172 kg Weight in Pounds: 201.0 lbs Body Mass Index (BMI): 38.0 Nutritional Referral for Obesity: No - Physical Inactivity Physical Inactivity: None - Risk Stratification Risk Guidelines: Lowest Risk: Risk Factor for Smoking, Risk Factor for Depression, Moderate Risk: Risk Factor for Dyslipidemia, Risk Factor for Diabetes, Risk Factor for Obesity, Risk Factor for Hypertension, Risk Factor for Sedentary Lifestyle - For Smoking Smoking Risk Guidelines: Smoking Low Risk: None or quit greater than 6 months ago. Smoking Moderate Risk: Smoker or quit 6 months or less ago. Smoking High Risk: Smoker - For Dyslipidemia Dyslipidemia Risk Guidelines: Low Risk: Moderate Risk: High Risk: 15-25% fat 25.1-29% fat >/= 30% fat. <7% sat fat 7-9% sat fat >9% sat fat. <150 mg chol 150-299 mg chol >/= 300 mg chol. LDL <100 LDL 100-129 LDL >/= 130. Chol/HDL ratio <5.0 Chol/HDL ratio 5.0-6.0 Chol/HDL ratio >6.0. Triglycerides <100 Triglycerides 100-149 Triglycerides >/= 150 - For Diabetes Mellitus Diabetes Risk Guidelines: Diabetes Low Risk: HgA1c <6.5% and/or FBG <120. Diabetes Moderate Risk: HgA1c 6.6-7.9% and/or FBG 120-180. Diabetes High Risk: HgA1c >/= 8% and/or FBG >180 - For Obesity/Overweight Obesity/Overweight Risk Guidelines: Obesity Low Risk: BMI <25.0. Obesity Moderate Risk: BMI 25-29.9. Obesity High Risk: BMI >/= 30.0 - For Hypertension Hypertension Risk Guidelines: Hypertension Low Risk: Systolic <120 and Diastolic <80. Hypertension Moderate Risk: Systolic 120-139 and Diastolic 80-89. Hypertension High Risk: Systolic >/= 140 and Diastolic >/= 90 - For Sedentary Lifestyle Sedentary Lifestyle Risk Guidelines: Sedentary Lifestyle Low Risk: >/= 1 ,500 kcal/week. Sedentary Lifestyle Moderate Risk: 700-1,499 kcal/week. Sedentary Lifestyle High Risk: < 700 kcal/week - For Depression Depression Risk Guidelines: Depression Low Risk: Not clinically depressed. Depression Moderate Risk: Mildly depressed. Depression High Risk: Clinically depressed - Family History Family History: Family History (Last Reviewed 05/14/17 @ 14:02 by Carmen Mckoy) Father Heart disease Hypertension Prostate cancer Mother Hypertension Social History - Smoking History Smoking Status: Former smoker Hx Tobacco Use: Yes Hx Smoking Exposure: Yes - Alcohol Use Alcohol Usage: No - Substance Abuse Hx Substance Use: No - Occupation Occupation (List type of work in comments):: Retired - Hobbies, Recreation, Social Activities Hobbies: Other - reading Recreational Activities: I can hardly do any recreational activities Marital Status - Status Marital Status: - Current Living Arrangements Living Environment:: Family - Children How many children do you have?: 4 Do any of your children live nearby?: Yes - Safety Do you feel safe in your surroundings?: Yes - Assistance Do you need any assistance at home?: has home health
[2017-07-06 13:45] VITALS: BP 150/60
[2017-07-06 13:47] VITALS: BP 150/60; PULSE 85; BMI 38.0
== END ==
PROVIDERS: Family Provider Family Medicine Geriatric Medicine; PCP Family Medicine Geriatric Medicine; Visit Provider Internal Medicine Cardiovascular Disease
DX: I21.4 Non-ST elevation (NSTEMI) myocardial infarction (principal); I25.810 Atherosclerosis of coronary artery bypass graft(s) without angina pectoris; Z98.61 Coronary angioplasty status; Z95.5 Presence of coronary angioplasty implant and graft

== ENCOUNTER 2017-07-20 11:30 | Outpatient (RCR) | payer MEDICAID, SELFPAY ==
--- NOTE | 2017-07-16 16:03 | PCM.CR.ITP ---
Exercise - Initial Assessment - Stages of Change Stages of Change:: Contemplate, Action - Exercise Prescription Mode:: Biodyne, Airdyne, NuStep Angina with exercise?: Yes - if doing alot of activity. Target Heart Rate:: resting HR plus 20 BPM. - Hypertension Do any of the following apply?: Yes - Intervention Home Exercise/Activity Goal:: Sitting Time <3 hrs/day - Education Goals:: Warm-up, RPE MAGDALENA Scale, S/S, Safe Exercise, Self-Monitoring - Exercise Program Goals Exercise Program Goals: Aerobic Activity >30 min Exercise - 30-day Assessment - Visit Date of Eval: 07/16/17 - 07/11/2017 Session #:: 1 - Stages of Change Stages of Change:: Action - Exercise Prescription Mode:: NuStep Frequency (x/week): 3 Duration:: 30 METs - Progression: 0.5-1 MET as tolerated: 2.5 Target Heart Rate:: Rest + 20 Max HR 83 - Hypertension Resting Blood Pressure:: 118/40 Peak Exercise Blood Pressure:: 140/58 Medication Changes:: No - Intervention Home Exercise/Activity Goal:: Sitting Time <3 hrs/day - Education Goals:: Warm-up, RPE MAGDALENA Scale, S/S, Safe Exercise, Self-Monitoring - Exercise Program Goals Exercise Program Goals: Aerobic Activity >30 min Exercise - 60-Day Assessment - Visit Date of Eval: 02/16/17 - Stages of Change Stages of Change:: Action - Exercise Prescription Mode:: NuStep, Arm Ergometer Frequency (x/week): 3 Duration:: 30 METs: 3.5 Target Heart Rate:: rest + 30BPM max HR 94 - Hypertension Medication Changes:: No - Intervention Home Exercise/Activity Goal:: Sitting Time <3 hrs/day - Education Goals:: Warm-up, RPE MAGD[place]ENA Scale, S/S, Safe Exercise, Self-Monitoring - Exercise Program Goals Exercise Program Goals: Aerobic Activity >30 min Exercise - 90-Day Assessment - Visit Date of Eval: 02/16/17 - Stages of Change Stages of Change:: Action - Exercise Prescription Mode:: NuStep, Arm Ergometer Frequency (x/week): 3 Duration:: 30 METs: 3.5 Target Heart Rate:: rest + 30BPM max HR 94 - Hypertension Medication Changes:: No - Intervention Home Exercise/Activity Goal:: Sitting Time <3 hrs/day - Education Goals:: Warm-up, RPE MAGD[place]ENA Scale, S/S, Safe Exercise, Self-Monitoring - Exercise Program Goals Exercise Program Goals: Aerobic Activity >30 min Exercise - Final/Discharge - Visit Date of Eval: 03/19/17 - Stages of Change Stages of Change:: Action - Exercise Prescription Mode:: Biodyne, NuStep, Arm Ergometer Frequency (x/week): 3 - Routine Chronic Dialysis patient Duration:: 35 METs: 3.5 Target Heart Rate:: Rest HR + 30 BPM - Hypertension Do any of the following apply?: Yes - Intervention Home Exercise/Activity Goal:: Sitting Time <3 hrs/day - Education Goal Progress: Goal Met - Exercise Program Goals Exercise Program Goals: Aerobic Activity >30 min Nutrition - Initial Assessment - Program Goals Nutrition Program Goals: LDL <70. Total Cholesterol <200. HDL >45. Triglycerides <150. HgbA1C <7%. BMI <25 - Stages of Change Stages of Change:: Contemplate - Diabetes Diabetes:: Yes Hgb A1C: 7.6 Do you monitor your blood sugar at home?: Yes - Weight Management Body Fat %:: 38 Total Score:: 11 - Intervention Referral to dietitian:: Yes Referral to Diabetic Clinic:: Yes Will attend diet classes:: Yes - Education Gave educational materials for:: Signs & symptoms of hypoglycemia, Signs & symptoms of hyperglycemia, Relate diabetes to coronary artery disease, Healthy eating Nutrition - 30-Day Assessment - Program Goals Nutrition Program Goals: LDL <70. Total Cholesterol <200. HDL >45. Triglycerides <150. HgbA1C <7%. BMI <25 - Visit Date of Eval: 07/16/17 - 07/11/2017 - Stages of Change Stages of Change:: Action - Lipids Has the patient seen the dietitian?: No - Diabetes Diabetes:: Yes Hgb A1C: 7.6 Insulin: No - Intervention Referral to dietitian:: Yes Referral to Diabetic Clinic:: Yes Will attend diet classes:: Yes - Education Attended class for:: Signs & symptoms of hypoglycemia, Signs & symptoms of hyperglycemia, Relate diabetes to coronary artery disease, Healthy eating Nutrition - 60-Day Assessment - Program Goals Nutrition Program Goals: LDL <70. Total Cholesterol <200. HDL >45. Triglycerides <150. HgbA1C <7%. BMI <25 - Visit Date of Eval: 02/16/17 - Stages of Change Stages of Change:: Action - Lipids Has the patient seen the dietitian?: No - Diabetes Diabetes:: Yes Hgb A1C: 7.6 Insulin: No - Intervention Referral to dietitian:: Yes Referral to Diabetic Clinic:: Yes Will attend diet classes:: Yes - Education Attended class for:: Signs & symptoms of hypoglycemia, Signs & symptoms of hyperglycemia, Relate diabetes to coronary artery disease, Healthy eating Nutrition - 90-Day Assessment - Program Goals Nutrition Program Goals: LDL <70. Total Cholesterol <200. HDL >45. Triglycerides <150. HgbA1C <7%. BMI <25 - Visit Date of Eval: 02/16/17 - Stages of Change Stages of Change:: Action - Lipids Has the patient seen the dietitian?: No - Diabetes Diabetes:: Yes Hgb A1C: 7.6 Insulin: No - Intervention Referral to dietitian:: Yes Referral to Diabetic Clinic:: Yes Will attend diet classes:: Yes - Education Attended class for:: Signs & symptoms of hypoglycemia, Signs & symptoms of hyperglycemia, Relate diabetes to coronary artery disease, Healthy eating Nutrition - Final Assessment - Program Goals Nutrition Program Goals: LDL <70. Total Cholesterol <200. HDL >45. Triglycerides <150. HgbA1C <7%. BMI <25 - Visit Date of Eval: 03/19/17 - Stages of Change Stages of Change:: Action - Diabetes Diabetes:: Yes Hgb A1C: 7.6 Insulin: No - Weight Management Body Fat %:: 38 Total Score:: 11 - Intervention Referral to dietitian:: Yes Referral to Diabetic Clinic:: Yes Will attend diet classes:: Yes Tobacco - Initial Assessment - Program Goals Tobacco Program Goals: Complete smoking cessation. Attend education classes. Improve Knowledge Test score - Stage of Change Stages of Change:: Contemplate, Action - Learning Barriers Learning Barriers: Vision - retinopathy, limited vision right, legally blind in left eye. Total Score:: 9 - Family Support Do you have family support?: Yes - Tobacco Use Tobacco Use: Non-smoker How long ago did you quit using tobacco products?: Greater than or equal to 6 months ago Do you use smokeless tobacco?: No - Intervention Smoking Cessation Referral:: No Individual Education/Counseling:: No Education Schedule Given:: Yes - Education Gave educational material for:: Coronary artery disease, Risk factors, Sexuality, Medical compliance, Cardiac A&P, Angina signs & symptoms Tobacco - 30-Day Assessment - Program Goals Tobacco Program Goals: Complete smoking cessation. Attend education classes. Improve Knowledge Test score - Stage of Change Stages of Change:: Action - Learning Barriers Learning Barriers: Participates in education - Family Support Do you have family support?: Yes - Tobacco Use Do you use smokeless tobacco?: No - Intervention Smoking Cessation Referral:: No Individual Education/Counseling:: No Education Schedule Given:: Yes - Education Attended class for:: Coronary artery disease, Risk factors, Sexuality, Medical compliance, Cardiac A&P, Angina signs & symptoms Tobacco - 60-Day Assessment - Program Goals Tobacco Program Goals: Complete smoking cessation. Attend education classes. Improve Knowledge Test score - Stage of Change Stages of Change:: Action - Learning Barriers Learning Barriers: Participates in education - Family Support Do you have family support?: Yes - Tobacco Use Do you use smokeless tobacco?: No - Intervention Smoking Cessation Referral:: No Individual Education/Counseling:: No Education Schedule Given:: Yes - Education Attended class for:: Coronary artery disease, Risk factors, Sexuality, Medical compliance, Cardiac A&P, Angina signs & symptoms Tobacco - 90-Day Assessment - Program Goals Tobacco Program Goals: Complete smoking cessation. Attend education classes. Improve Knowledge Test score - Stage of Change Stages of Change:: Action - Learning Barriers Learning Barriers: Participates in education - Family Support Do you have family support?: Yes - Tobacco Use Do you use smokeless tobacco?: No - Intervention Smoking Cessation Referral:: No Individual Education/Counseling:: No Education Schedule Given:: Yes - Education Attended class for:: Coronary artery disease, Risk factors, Sexuality, Medical compliance, Cardiac A&P, Angina signs & symptoms Tobacco - Final Assessment - Program Goals Tobacco Program Goals: Complete smoking cessation. Attend education classes. Improve Knowledge Test score - Learning Barriers Cardiac Knowledge Test Score:: 9 - Family Support Do you have family support?: Yes - Tobacco Use Do you use smokeless tobacco?: No - Intervention Smoking Cessation Referral:: No Individual Education/Counseling:: No Education Schedule Given:: Yes - Education Education Goal Reached?: Yes Psychosocial - Initial Assess - Target Goals Target Goals: Assess presence or absence of depression. Using a valid screening tool, maximizes coping skills. Positive support system - Stages of Change Stages of Change:: Action - Psychosocial Test Tool Used:: HANDS Depression Questionnaire Tests Completed: SF - 36 survey completed, Mood Scale Test Total Mood Screening Score:: 13 Self-Efficacy Score:: 6 - Intervention PS - Interventions: Yes Uses Stress Management Skills, No Referral to Mental Health, No Referral to [facility] Case Management, No Referral to Physician, No Attend Stress Management Classes - Patient/Program Goal Preventative Medication(s):: Aspirin, SABINA inhibitor, Clopidogrel, Beta ivy, Statin/lipid - Assistive Devices Assistive Devices:: Cane Fall Risk Assessed:: Yes Psychosocial - 30-Day Assess - Target Goals Target Goals: Assess presence or absence of depression. Using a valid screening tool, maximizes coping skills. Positive support system - Stages of Change Stages of Change:: Action - Psychosocial Test Tool Used:: HANDS Depression Questionnaire Total Mood Screening Score:: 13 Self-Efficacy Score:: 6 - Intervention PS - Interventions: Yes Attend Stress Management Classes, Yes Uses Stress Management Skills, No Referral to Mental Health, No Referral to [facility] Case Management, No Referral to Physician - Patient/Program Goal Preventative Medication(s):: Aspirin, SABINA inhibitor, Clopidogrel, Beta ivy, Statin/lipid - Assistive Devices Assistive Devices:: Cane Fall Risk Assessed:: Yes Psychosocial - 60-Day Assess - Target Goals Target Goals: Assess presence or absence of depression. Using a valid screening tool, maximizes coping skills. Positive support system - Stages of Change Stages of Change:: Action - Psychosocial Test Tool Used:: HANDS Depression Questionnaire Total Mood Screening Score:: 13 Self-Efficacy Score:: 6 - Patient/Program Goal Preventative Medication(s):: Aspirin, SABINA inhibitor, Clopidogrel, Beta ivy, Statin/lipid - Assistive Devices Assistive Devices:: Cane Fall Risk Assessed:: Yes Psychosocial - 90-Day Assess - Target Goals Target Goals: Assess presence or absence of depression. Using a valid screening tool, maximizes coping skills. Positive support system - Stages of Change Stages of Change:: Action - Psychosocial Test Tool Used:: HANDS Depression Questionnaire Total Mood Screening Score:: 13 Self-Efficacy Score:: 6 - Patient/Program Goal Preventative Medication(s):: Aspirin, SABINA inhibitor, Clopidogrel, Beta ivy, Statin/lipid - Assistive Devices Assistive Devices:: Cane Fall Risk Assessed:: Yes Psychosocial - Final Assessmen - Target Goals Target Goals: Assess presence or absence of depression. Using a valid screening tool, maximizes coping skills. Positive support system - Stages of Change Stages of Change:: Action - Psychosocial Test Tool Used:: HANDS Depression Questionnaire Tests Completed: SF - 36 survey completed, Mood Scale Test Total Mood Screening Score:: 13 Self-Efficacy Score:: 6 - Education Education Goal Reached?: Yes - Patient/Program Goal Preventative Medication(s):: Aspirin, SABINA inhibitor, Clopidogrel, Beta ivy, Statin/lipid - Assistive Devices Assistive Devices:: Cane Fall Risk Assessed:: Yes Patient Health Questionnaire 30-Day Re-eval Assessment 1. Little interest or pleasure in doing things: Several days 2. Feeling down, depressed, or hopeless: Several days 3. Trouble falling or staying asleep, or sleeping too much: Several days 4. Feeling tired or having little energy: Several days 5. Poor appetite or overeating: Several days 6. Feeling bad about yourself -- or that you are a failure or have let yourself or your family down: Several days 7. Trouble concentrating on things, such as reading the newspaper or watching television: Several days 8. Moving or speaking so slowly that other people could have noticed. Or the opposite - being so fidgety or restless that you have been moving around a lot more than usual: Several days 9. Thoughts that you would be better off , or of hurting yourself in some way: Not at all How difficult have these problems made it for you to do your work, take care of things at home, or get along with other people?: Not difficult at all Total Score: 8 Self-Efficacy 30-Day Re-eval Assessment We would like to know how confident you are in doing certain activities. Please select your confidence level for:: Select your confidence level for the following using the scale 1-10 where 1 is not at all confident and 10 is totally confident. Your score is the average of all 6 responses. Fatigue: How confident are you that you can keep the fatigue caused by your disease from interfering with the things you want to do? Select Number: 7 Physical Discomfort or Pain: How confident are you that you can keep the physical discomfort or pain of your disease from interfering with the things you want to do? Select Number: 7 Emotional Distress: How confident are you that you can keep the emotional distress caused by your disease from interfering with the things you want to do? Select Number: 7 Other Symptoms or Health Problems: How confident are you that you can keep other symptoms or health problems from interfering with the things you want to do? Select Number: 7 Different Tasks and Activities: How confident are you that you can do the different tasks and activities needed to manage your health condition so as to reduce your need to see a doctor? Select Number: 7 Medication: How confident are you that you can do things other than just taking medication to reduce how much your illness affects your everyday life? Select Number: 7 Total Score:: 7 Cardiac Rehabilitation Goals - Cardiac Rehab Goals Cardiac Rehabilitation Goals: 1. Maintain the individual as the primary focus of care. 2. To improve the patient's quality of life. 3. Identification of cardiac risk factors and provide cardiac risk factor management. 4. Enhance the psychosocial status of the patient. 5. Reconditioning enough to allow the patient to resume customary activities. 6. Control symptoms of cardiac disease - Scale Scale for measuring improvement of personal goals: Enter appropriate number in Comments. 2 = Unchanged. 3 = Slightly Better. 4 = Moderate Improvement. 5 = Met my Goal 30-Day Re-eval Assessment Personal Goals: 60-day Re-assessment: Improve management of stress and emotions, Improve energy level, Participate in home exercise program, Get back to work, or to resume activities faster, Improve knowledge of cardiac disease, Improve muscle strength and endurance, Improve diet and eating habits (eat healthier), Control risk factors (learn risk factor modification)
[2017-07-16 16:06] VITALS: BP 118/40; BP 140/58
== END 2017-07-21 23:59 ==
LOC: CR 11:30
PROVIDERS: Family Provider Family Medicine Geriatric Medicine; PCP Family Medicine Geriatric Medicine; Visit Provider Internal Medicine Cardiovascular Disease
DX: I25.810 Atherosclerosis of coronary artery bypass graft(s) without angina pectoris (principal); Z98.61 Coronary angioplasty status; I21.4 Non-ST elevation (NSTEMI) myocardial infarction; Z95.1 Presence of aortocoronary bypass graft
CPT/HCPCS: 93798

== ENCOUNTER → 2017-08-08 13:23 | Outpatient (CLI) | payer MEDICAID, SELFPAY ==
[2017-08-08 16:25] LABS: Absolute Lymphocyte Count 0.81 X10^3/ul (0.83-4.51); Absolute Neutrophil Count 2.2 X10^3/uL (2.0-7.7); Basophil# 0.02 X10^3/uL; Basophil% 0.6 % (0-1); Eosinophil# 0.08 X10^3/uL; Eosinophils% 2.3 % (0-5); Hematocrit 39.2 % (37-47); Hemoglobin 12.2 g/dl (12.0-15.0); Lymphocyte # 0.81 X10^3/ul (4.0); Lymphocyte % 23.4 % (19-41); Mean Corp Hgb Conc 31.1 g/gl (32-36); Mean Corpuscular Volume 99.7 fL (81-99); Mean Platelet Vol. 9.2 fl (6.2-12.0); Monocyte# 0.37 X10^3/uL; Monocyte% 10.7 % (0-10); Neutrophil # 2.18 X10^3/uL (2.7-7.7); Platelet Count 314 K/mm3 (150-450); RBC Distribution Width CV 17.5 % (11.6-14.6); RBC Distribution Width SD 63.5 fl (35.1-43.9); Red Blood Count 3.93 M/mm3 (4.2-5.4); White Blood Count 3.5 K/mm3 (4.4-11.0)
[2017-08-08 16:28] LABS: POSITIVE COUNT NO; POSITIVE DIFFERENTIAL NO; POSITIVE MORPHOLOGY NO
[2017-08-08 16:39] LABS: Vitamin D,25 Hydroxy 29.3 ng/mL (29.95-100.01)
[2017-08-08 16:59] LABS: ALB/GLOB Ratio 0.9 RATIO (0.9-2.4); AST(SGOT) 10 U/L (15-37); Alanine Aminotransfer ALT/SGPT 25 U/L (13-56); Albumin, Serum 3.4 g/dL (3.2-5.0); Alkaline Phosphatase 124 U/L (45-117); Anion Gap 12 (5-15); BUN 40 mg/dL (7-18); BUN/Creat Ratio 10.6 RATIO (10-20); Calcium,Total 8.6 mg/dL (8.5-10.1); Chloride 93 mmol/L (98-107); Creatinine, Serum 3.76 mg/dL (0.55-1.02); EST Glomerular Filtration Rate 13 mL/min (>60); Est Glom Filt Rate - Afr Amer 16 mL/min (>60); Globulin 3.6 g/dL (2.2-4.2); Glucose 538 mg/dL (74-106); Potassium 4.8 mmol/L (3.5-5.1); Sodium Level 133 mmol/L (136-145); Thyroid Stim Hormone (TSH) 0.55 uIU/mL (0.358-3.74)
== END ==
PROVIDERS: Family Provider Family Medicine Geriatric Medicine; PCP Family Medicine Geriatric Medicine; Visit Provider Family Medicine Geriatric Medicine
DX: I10 Essential (primary) hypertension (principal); E11.9 Type 2 diabetes mellitus without complications; E55.9 Vitamin D deficiency, unspecified
CPT/HCPCS: 36415; 80053; 82306; 84443; 85025

== ENCOUNTER 2017-08-20 11:30 | Outpatient (RCR) | payer MEDICAID, SELFPAY ==
[2017-07-22 01:19] VITALS: BP 118/40; BP 140/58
[2017-08-13 13:37] VITALS: BP 120/60; BP 158/62
--- NOTE | 2017-08-13 13:38 | CR.ITP_ITS ---
General Information - General Information Admitting Diagnosis: NSTEMI, PCI w coronary stenting, angioplasty - Education/Goals Barriers to Learning: Vision Impairment Individual Counseling: Initial Assessment: Abnormal Cholesterol Levels, High Blood Pressure, Overweight/Obesity, Diabetes, Metabolic Syndrome (as evidenced by 3 of 5 A-E below), A. Fasting Blood Sugar >100, B. Waist Circumference >35/ Females >40/Males, Hypertension, 30-Day Assessment: Abnormal Cholesterol Levels , High Blood Pressure, Overweight/Obesity, Diabetes, Metabolic Syndrome (as evidenced by 3 of 5 A-E below), A. Fasting Blood Sugar >100, B. Waist Circumference >35/Females >40/Males, Hypertension, 60-Day Assessment: Abnormal Cholesterol Levels, High Blood Pressure, Overweight/Obesity, Diabetes, Metabolic Syndrome (as evidenced by 3 of 5 A-E below), A. Fasting Blood Sugar > 100, B. Waist Circumference >35/Females >40/Males, Hypertension Cardiac Rehabilitation Goals: 1. Maintain the individual as the primary focus of care. 2. To improve the patient's quality of life. 3. Identification of cardiac risk factors and provide cardiac risk factor management. 4. Enhance the psychosocial status of the patient. 5. Reconditioning enough to allow the patient to resume customary activities. 6. Control symptoms of cardiac disease Scale for measuring improvement of personal goals: Enter appropriate number in Comments. 2 = Unchanged. 3 = Slightly Better. 4 = Moderate Improvement. 5 = Met my Goal Personal Goals: Initial Assessment: Improve energy level, Get back to work, or to resume activities faster, Improve muscle strength and endurance, Improve diet and eating habits (eat healthier), Control risk factors (learn risk factor modification), 30-day Re-assessment: Improve energy level, Get back to work, or to resume activities faster, Improve muscle strength and endurance, Improve diet and eating habits (eat healthier), Control risk factors (learn risk factor modification), 60-day Re-assessment: Improve energy level, Get back to work, or to resume activities faster, Improve muscle strength and endurance, Improve diet and eating habits (eat healthier), Control risk factors (learn risk factor modification) Exercise - 60-Day Assessment - Visit Date of Eval: 08/13/17 Session #:: 11 - Stages of Change Stages of Change:: Action - Exercise Prescription Mode:: Biodyne, NuStep, Arm Ergometer Frequency (x/week): 3 Duration:: 35 METs: 3 Target Heart Rate:: 100-108 - Hypertension Resting Blood Pressure:: 120/60 Peak Exercise Blood Pressure:: 158/62 Medication Changes:: No - Intervention Home Exercise/Activity Goal:: Moderate Exercise 30 min/day x 5 days/wk - Education Goals:: Warm-up, RPE MAGDALENA Scale, S/S, Safe Exercise, Self-Monitoring - Exercise Program Goals Exercise Program Goals: Aerobic Activity >30 min Nutrition - Initial Assessment - Program Goals Nutrition Program Goals: LDL <70. Total Cholesterol <200. HDL >45. Triglycerides <150. HgbA1C <7%. BMI <25 - Diabetes Do you monitor your blood sugar at home?: Yes Nutrition - 60-Day Assessment - Program Goals Nutrition Program Goals: LDL <70. Total Cholesterol <200. HDL >45. Triglycerides <150. HgbA1C <7%. BMI <25 - Visit Date of Eval: 08/13/17 - Stages of Change Stages of Change:: Action - Lipids Has the patient seen the dietitian?: Yes - Diabetes Diabetes:: Yes Insulin: Yes - Glargine Non-Insulin Dependent?: Yes - Metformin - Weight Management Weight:: 202 lb - Intervention Referral to dietitian:: No Referral to Diabetic Clinic:: Yes Will attend diet classes:: Yes - Education Attended class for:: Signs & symptoms of hypoglycemia, Signs & symptoms of hyperglycemia, Relate diabetes to coronary artery disease, Healthy eating Tobacco - Initial Assessment - Program Goals Tobacco Program Goals: Complete smoking cessation. Attend education classes. Improve Knowledge Test score - Learning Barriers Learning Barriers: Vision - retinopathy, limited vision right, legally blind in left eye. Tobacco - 60-Day Assessment - Program Goals Tobacco Program Goals: Complete smoking cessation. Attend education classes. Improve Knowledge Test score - Stage of Change Stages of Change:: Action - Learning Barriers Learning Barriers: Participates in education, Change in behavior - Family Support Do you have family support?: Yes - Tobacco Use Tobacco Use: Non-smoker Do you use smokeless tobacco?: No - Intervention Smoking Cessation Referral:: No Individual Education/Counseling:: No Education Schedule Given:: Yes - Education Attended class for:: Coronary artery disease, Risk factors, Sexuality, Medical compliance, Cardiac A&P, Angina signs & symptoms Psychosocial - Initial Assess - Target Goals Target Goals: Assess presence or absence of depression. Using a valid screening tool, maximizes coping skills. Positive support system - Psychosocial Test Tool Used:: HANDS Depression Questionnaire - Assistive Devices Fall Risk Assessed:: Yes Psychosocial - 60-Day Assess - Target Goals Target Goals: Assess presence or absence of depression. Using a valid screening tool, maximizes coping skills. Positive support system - Stages of Change Stages of Change:: Action - Psychosocial Test Tool Used:: HANDS Depression Questionnaire Self-reported stress:: family - Intervention PS - Interventions: Yes Attend Stress Management Classes, Yes Uses Stress Management Skills, No Referral to Mental Health, No Referral to [facility] Case Management, No Referral to Physician - Education Attended classes for:: Coping techniques, Signs & symptoms of depression, Stress management, Relaxation techniques - Patient/Program Goal Preventative Medication(s):: Aspirin, SABINA inhibitor, Clopidogrel, Beta ivy, Statin/lipid - Assistive Devices Assistive Devices:: Cane Fall Risk Assessed:: Yes Patient Health Questionnaire 60-Day Re-eval Assessment 1. Little interest or pleasure in doing things: Several days 2. Feeling down, depressed, or hopeless: Several days 3. Trouble falling or staying asleep, or sleeping too much: More than half the days 4. Feeling tired or having little energy: More than half the days 5. Poor appetite or overeating: Several days 6. Feeling bad about yourself -- or that you are a failure or have let yourself or your family down: Several days 7. Trouble concentrating on things, such as reading the newspaper or watching television: Several days 8. Moving or speaking so slowly that other people could have noticed. Or the opposite - being so fidgety or restless that you have been moving around a lot more than usual: Not at all 9. 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 Total Score: 9 Self-Efficacy 60-Day Re-eval Assessment We would like to know how confident you are in doing certain activities. Please select your confidence level for:: Select your confidence level for the following using the scale 1-10 where 1 is not at all confident and 10 is totally confident. Your score is the average of all 6 responses. Fatigue: How confident are you that you can keep the fatigue caused by your disease from interfering with the things you want to do? Select Number: 8 Physical Discomfort or Pain: How confident are you that you can keep the physical discomfort or pain of your disease from interfering with the things you want to do? Select Number: 7 Emotional Distress: How confident are you that you can keep the emotional distress caused by your disease from interfering with the things you want to do? Select Number: 8 Other Symptoms or Health Problems: How confident are you that you can keep other symptoms or health problems from interfering with the things you want to do? Select Number: 8 Different Tasks and Activities: How confident are you that you can do the different tasks and activities needed to manage your health condition so as to reduce your need to see a doctor? Select Number: 7 Medication: How confident are you that you can do things other than just taking medication to reduce how much your illness affects your everyday life? Select Number: 8 Total Score:: 7
== END 2017-08-20 23:59 ==
LOC: CR 11:30
PROVIDERS: Family Provider Family Medicine Geriatric Medicine; PCP Family Medicine Geriatric Medicine; Visit Provider Internal Medicine Cardiovascular Disease
DX: I25.810 Atherosclerosis of coronary artery bypass graft(s) without angina pectoris (principal); Z95.1 Presence of aortocoronary bypass graft; Z98.61 Coronary angioplasty status
CPT/HCPCS: 93798

== ENCOUNTER → 2017-08-21 20:18 | Outpatient (CLI) | payer MEDICAID, SELFPAY | PROVIDERS: Family Provider Family Medicine Geriatric Medicine; PCP Family Medicine Geriatric Medicine; Visit Provider Nurse Practitioner Acute Care | DX: G47.33 Obstructive sleep apnea (adult) (pediatric) (principal) | CPT/HCPCS: 95811 ==

== ENCOUNTER 2017-08-23 10:32 | Emergency (ER) | payer MEDICAID, SELFPAY ==
[2017-08-23 10:33] VITALS: BP 125/66; PULSE 68; RESP 17; TEMP 36.8; O2SAT 99; BMI 39.0
[2017-08-23 10:41] VITALS: O2SAT 98
--- NOTE | 2017-08-23 10:41 | EKG12_ITS ---
Test Reason : CP Blood Pressure : / mmHG Vent. Rate : 070 BPM Atrial Rate : 070 BPM P-R Int : 154 ms QRS Dur : 082 ms QT Int : 454 ms P-R-T Axes : 051 -43 085 degrees QTc Int : 490 ms Normal sinus rhythm Left axis deviation Prolonged QT Abnormal ECG Confirmed by SAMUEL ZARAGOZA, DESTINEE ([id number]), research editor MADDY STERLING ([id number]) on 08/27/2017 1:45:20 PM Referred By: BLANCA/SIMA Confirmed By:DESTINEE BAKER MD
--- NOTE | 2017-08-23 10:41 | RAD_ITS ---
STUDY: X-RAY CHEST REASON FOR EXAM: Female, 56 years old. Chest pain TECHNIQUE: Single AP portable view of the chest. COMPARISON: None. FINDINGS: The lungs are clear and expanded. There is no demonstrated pleural abnormality. Sternal cerclage wires are present from a prior sternotomy. Normal mediastinum and branden. Normal visualized pulmonary arteries. Normal visualized aortic arch and descending thoracic aorta. Normal visualized thoracic spine. Normal visualized ribs, clavicles, and shoulders. There is no demonstrated abnormality of the visualized soft tissue structures of the upper abdomen. RAD/Chest 1 View (Portable) IMPRESSION: No demonstrated acute cardiopulmonary process. Electronically Signed: Nain Oakes MD at 11:20 EDT Tel , Service support ,
[2017-08-23 10:56] LABS: Absolute Lymphocyte Count 1.29 X10^3/ul (0.83-4.51); Absolute Neutrophil Count 1.9 X10^3/uL (2.0-7.7); Basophil# 0.03 X10^3/uL; Basophil% 0.8 % (0-1); Eosinophil# 0.11 X10^3/uL; Eosinophils% 2.9 % (0-5); Hemoglobin 13.5 g/dl (12.0-15.0); Lymphocyte # 1.29 X10^3/ul (4.0); Lymphocyte % 33.7 % (19-41); Mean Corp Hgb Conc 32.1 g/gl (32-36); Mean Corpuscular Hgb 30.7 pg (27.0-32.0); Mean Corpuscular Volume 95.5 fL (81-99); Mean Platelet Vol. 9.4 fl (6.2-12.0); Monocyte# 0.52 X10^3/uL; Monocyte% 13.6 % (0-10); Neutrophil # 1.87 X10^3/uL (2.7-7.7); Neutrophil % 48.7 % (47-70); Platelet Count 292 K/mm3 (150-450); RBC Distribution Width CV 15.7 % (11.6-14.6); White Blood Count 3.8 K/mm3 (4.4-11.0)
[2017-08-23 10:57] LABS: POSITIVE COUNT NO; POSITIVE DIFFERENTIAL NO; POSITIVE MORPHOLOGY NO
[2017-08-23 11:01] VITALS: BP 125/87; PULSE 67; RESP 24; O2SAT 94
[2017-08-23 11:09] LABS: Anion Gap 5 (5-15); BUN 16 mg/dL (7-18); BUN/Creat Ratio 7.5 RATIO (10-20); Calcium,Total 8.5 mg/dL (8.5-10.1); Chloride 96 mmol/L (98-107); Creatinine, Serum 2.14 mg/dL (0.55-1.02); EST Glomerular Filtration Rate 25 mL/min (>60); Est Glom Filt Rate - Afr Amer 30 mL/min (>60); Estimated Creatinine Clearance 20.83 ml/min; Glucose 128 mg/dL (74-106); Potassium 3.8 mmol/L (3.5-5.1); Sodium Level 136 mmol/L (136-145)
--- NOTE | 2017-08-23 11:35 | ED.DCSUM_ITS ---
- ER Visit Summary Date of Service: 08/23/17 Chief Complaint: Chest pain History of Present Illness: The patient is a [address] King, Dr. Rollins, and Dr. Huang. She reports that during dialysis today she had the onset of an intermittent left chest pain. She reports that it lasts seconds at a time. This occurred 5 times. She describes it as a poking sensation. Is 5 out of 10 at worst and she is pain-free currently. It is worsened by the active bleeding forward. Is relieved by nothing. She denies any associated nausea, vomiting, diaphoresis, shortness of breath. Physical Examination: Vitals: Stable. Afebrile. General: Well-nourished and well-developed. Head: Normocephalic atraumatic. Neck: Supple, no lymphadenopathy. No JVD. Nontender. Cardiovascular: Regular rate and rhythm. No murmurs. Respiratory: No respiratory distress. Clear to auscultation bilaterally. Abdominal: Soft, nontender, nondistended, normal bowel sounds. No guarding, rebound, or peritoneal signs. Back: Nontender. Extremities: Nontender, no edema. Skin: Normal color, no rash. Neurologic: Alert and oriented ?3. Cranial nerves II through XII are intact. Normal strength and sensation. Psych: Normal affect. Test Results: KG is sinus at 70 with a QTC of 490. This is unchanged from May of this year. At that time her QTC was 474. Troponins negative. Chem -7 is more for chloride of 96, CO2 35, creatinine 2.14, and glucose 128. CBC is marked for white count of 3.8 monocytes of 14. Chest x-ray shows cardiomegaly and no acute disease. Emergency Department Course and Treatment: Patient is resting comfortably and without complaint. She refused pain medications. Treatment Plan: Patient does have a history of coronary artery disease. However , her pain is very atypical and I do not think that further evaluation is necessary. She will be discharged with instructions to follow-up with Dr. Flannery in 1-2 days if not improving. Return to the emergency department for any worsening symptoms. Disposition: To home in improved and stable condition. Impression: 1. Atypical chest pain. 2. NITIN score of 3. 2. End-stage renal disease. This note was generated with Remedifyation software. It may contain incorrect words, spelling, and punctuation that were not noted in review of the chart prior to signing ED Disposition - Plan for ED Patient: Chief Complaint: Chest Pain Instructions: ED Chest Pain Atypical Unkn Cause Referrals: Brayden King Chi, MD [Primary Care Provider] - 1-2 Days if not improving
[2017-08-23 11:53] VITALS: BP 130/72; PULSE 65; RESP 15; TEMP 37.7
== END 2017-08-23 12:10 | disposition home or self-care (01) ==
LOC: ED 11:44
PROVIDERS: Emergency Provider Emergency Medicine; Family Provider Family Medicine Geriatric Medicine; PCP Family Medicine Geriatric Medicine
DX: R07.89 Other chest pain (principal); I13.2 Hypertensive heart and chronic kidney disease with heart failure and with stage 5 chronic kidney disease, or end stage renal disease; E11.22 Type 2 diabetes mellitus with diabetic chronic kidney disease; N18.6 End stage renal disease; I50.9 Heart failure, unspecified; I25.10 Atherosclerotic heart disease of native coronary artery without angina pectoris; E78.00 Pure hypercholesterolemia, unspecified; G47.33 Obstructive sleep apnea (adult) (pediatric); Z99.2 Dependence on renal dialysis; Z79.4 Long term (current) use of insulin; Z79.82 Long term (current) use of aspirin; Z79.02 Long term (current) use of antithrombotics/antiplatelets; Z79.899 Other long term (current) drug therapy
CPT/HCPCS: 71045; 80048; 84484; 85025; 93005; 99285; J7030; A4216

== ENCOUNTER → 2017-09-07 12:55 | Outpatient (CLI) | payer MEDICAID, SELFPAY ==
--- NOTE | 2017-09-07 14:35 | PFTCOMP ---
COMPLETE PULMONARY FUNCTION TEST INTERPRETATION Brief HPI: Patient is a 56 year old Black female, currently under the care of Dr. Urbina, who presents to [facility] for complete pulmonary function tests secondary to diagnosis of COPD. Respiratory therapist reports good effort and reproducible results. Interpretation: Forced expiration spirometry shows no large airways obstructive ventilatory defect with an FEV1 of 73% predicted. There is no significant bronchodilator response by ATS criteria. Spirograms are of good quality and plateau normally. The respiratory flow volume loop shows a normal pattern. Lung volumes by body plethysmography show a decreased total lung capacity at 3.01 L, 71% predicted. All other lung volumes are reduced symmetrically. Diffusion capacity by carbon monoxide is decreased at 47% predicted. The airway resistance is normal. No previous pulmonary function tests were available for review. Impression: Mild restrictive ventilatory defect with a symmetric reduction diffusing capacity consistent with possible interstitial lung disease.
== END ==
PROVIDERS: Family Provider Family Medicine Geriatric Medicine; PCP Family Medicine Geriatric Medicine; Visit Provider Nurse Practitioner Acute Care
DX: J44.9 Chronic obstructive pulmonary disease, unspecified (principal); I25.810 Atherosclerosis of coronary artery bypass graft(s) without angina pectoris; I21.4 Non-ST elevation (NSTEMI) myocardial infarction; Z95.1 Presence of aortocoronary bypass graft; Z98.61 Coronary angioplasty status
CPT/HCPCS: 93798; 94060; 94726; 94729

== ENCOUNTER → 2017-09-12 10:17 | Outpatient (CLI) | payer MEDICAID, SELFPAY ==
[2017-09-12 10:54] VITALS: PULSE 71; PULSE 75; PULSE 76; PULSE 80; PULSE 82; PULSE 83; O2SAT 95; O2SAT 97; O2SAT 98; O2SAT 99
--- NOTE | 2017-09-12 10:59 | CPS ---
Mrs Casanova just finished Dialysis and she states she is slight SOB after those treatments but on a usual day would not be SOB.
--- NOTE | 2017-09-13 08:32 | PCM.PSN.6M ---
PSN 6 Minute Walk Test - 6 Minute Walk Test 6 Minute Walk Test: 6 Minute Walk Test PSN:6-Minute Walk Test Start: 09/12/17 10:54 Freq: Status: Active Protocol: [id number] Document 09/12/17 10:54 FR (Rec: 09/12/17 11:00 FR [id number]) 6 Minute Walk Test Date Performed 09/12/17 Time Performed 10:30 Height 5 ft Weight: 196 lb 3.382 oz Weight in Pounds 196.[address]: Dorothy Rizzo Assistive device used: Cane Pre-test Oxygen Delivery Method Room Air Pulse Ox (%) 97 Pulse Rate (60-100 beats/min) 71 Dyspnea Julian Scale (0-10) 2 Exertion Julian Scale (6-20) 9 1st minute Oxygen Delivery Method Room Air Pulse Ox (%) 99 Pulse Rate (60-100 beats/min) 76 2nd minute Oxygen Delivery Method Room Air Pulse Ox (%) 97 Pulse Rate (60-100 beats/min) 80 3rd minute Oxygen Delivery Method Room Air Pulse Ox (%) 98 Pulse Rate (60-100 beats/min) 82 4th minute Oxygen Delivery Method Room Air Pulse Ox (%) 98 Pulse Rate (60-100 beats/min) 82 5th minute Oxygen Delivery Method Room Air Pulse Ox (%) 95 Pulse Rate (60-100 beats/min) 83 6th minute Oxygen Delivery Method Room Air Pulse Ox (%) 98 Pulse Rate (60-100 beats/min) 82 Dyspnea Julian Scale (0-10) 2 Exertion Julian Scale (6-20) 10 Post-test Oxygen Delivery Method Room Air Pulse Ox (%) 98 Pulse Rate (60-100 beats/min) 75 Full Laps Walked 12 Partial Lap, Number of Tiles Walked 29 Total Distance Walked (ft) 737 09/12/17 10:59 Cardiopulmonary Services by Daysi Martínez Mrs Casanova just finished Dialysis and she states she is slight SOB after those treatments but on a usual day would not be SOB. Initialized on 09/12/17 10:59 - END OF NOTE - Interpretation Interpretation: The patient ambulated 737 feet over the course of 6 minutes beginning on room air with use of a cane. Pretesting oxygen saturation was noted to be 97% on room air. With ambulation, the panda oxygen saturation was 95%. Although there was evidence of impaired walk distance, there was no significant exertional oxygen desaturation. - Recommendations Recommendations: There is no indication for the use of supplemental oxygen at this time.
== END ==
PROVIDERS: Family Provider Family Medicine Geriatric Medicine; PCP Family Medicine Geriatric Medicine; Visit Provider Nurse Practitioner Acute Care
DX: J44.9 Chronic obstructive pulmonary disease, unspecified (principal)
CPT/HCPCS: 94618

== ENCOUNTER 2017-09-19 11:30 | Outpatient (RCR) | payer MEDICAID, SELFPAY ==
[2017-08-21 00:58] VITALS: BP 120/60; BP 158/62
[2017-09-12 09:42] VITALS: BP 160/72; BP 192/80
--- NOTE | 2017-09-12 09:43 | CR.ITP_ITS ---
General Information - General Information Admitting Diagnosis: NSTEMI, PCI w/coronary stent - Education/Goals Barriers to Learning: Vision Impairment Individual Counseling: Discharge Assessment: Abnormal Cholesterol Levels, High Blood Pressure, Overweight/Obesity, Diabetes Cardiac Rehabilitation Goals: 1. Maintain the individual as the primary focus of care. 2. To improve the patient's quality of life. 3. Identification of cardiac risk factors and provide cardiac risk factor management. 4. Enhance the psychosocial status of the patient. 5. Reconditioning enough to allow the patient to resume customary activities. 6. Control symptoms of cardiac disease Scale for measuring improvement of personal goals: Enter appropriate number in Comments. 2 = Unchanged. 3 = Slightly Better. 4 = Moderate Improvement. 5 = Met my Goal Personal Goals: Discharge Reassessment: Improve management of stress and emotions, Improve energy level, Participate in home exercise program Exercise - 90-Day Assessment - Visit Date of Eval: 09/12/17 Session #:: 23 - Stages of Change Stages of Change:: Contemplate - Exercise Prescription Mode:: NuStep, Arm Ergometer Frequency (x/week): 3 - 60% MET increase Duration:: 30 METs: 4 Target Heart Rate:: 100-108 - Hypertension Resting Blood Pressure:: 160/72 Peak Exercise Blood Pressure:: 192/80 Medication Changes:: No - Intervention Home Exercise/Activity Goal:: Sitting Time <3 hrs/day - Education Goals:: Warm-up, RPE MAGDALENA Scale, S/S, Safe Exercise - Exercise Program Goals Exercise Program Goals: Aerobic Activity >30 min, B/P <130/80 Nutrition - Initial Assessment - Program Goals Nutrition Program Goals: LDL <70. Total Cholesterol <200. HDL >45. Triglycerides <150. HgbA1C <7%. BMI <25 - Diabetes Do you monitor your blood sugar at home?: Yes Nutrition - 90-Day Assessment - Program Goals Nutrition Program Goals: LDL <70. Total Cholesterol <200. HDL >45. Triglycerides <150. HgbA1C <7%. BMI <25 - Stages of Change Stages of Change:: Contemplate - Lipids Has the patient seen the dietitian?: No - Diabetes Diabetes:: Yes - Weight Management Weight:: 90.718 kg - Intervention Referral to dietitian:: No Referral to Diabetic Clinic:: Yes Will attend diet classes:: Yes Tobacco - Initial Assessment - Program Goals Tobacco Program Goals: Complete smoking cessation. Attend education classes. Improve Knowledge Test score - Learning Barriers Learning Barriers: Vision - retinopathy, limited vision right, legally blind in left eye. Tobacco - 90-Day Assessment - Program Goals Tobacco Program Goals: Complete smoking cessation. Attend education classes. Improve Knowledge Test score - Stage of Change Stages of Change:: Contemplate - Learning Barriers Learning Barriers: Declined education - Family Support Do you have family support?: Yes - Tobacco Use Tobacco Use: Non-smoker - Intervention Smoking Cessation Referral:: No Individual Education/Counseling:: No Education Schedule Given:: Yes Psychosocial - Initial Assess - Target Goals Target Goals: Assess presence or absence of depression. Using a valid screening tool, maximizes coping skills. Positive support system - Psychosocial Test Tool Used:: HANDS Depression Questionnaire - Assistive Devices Fall Risk Assessed:: Yes Psychosocial - 90-Day Assess - Target Goals Target Goals: Assess presence or absence of depression. Using a valid screening tool, maximizes coping skills. Positive support system - Stages of Change Stages of Change:: Contemplate - Psychosocial Test Tool Used:: HANDS Depression Questionnaire - Intervention PS - Interventions: No Referral to Mental Health, No Referral to [facility] Case Management, No Referral to Physician, No Attend Stress Management Classes, No Uses Stress Management Skills - Assistive Devices Assistive Devices:: Cane Fall Risk Assessed:: Yes Patient Health Questionnaire 90-Day Re-eval Assessment 1. Little interest or pleasure in doing things: Several days 2. Feeling down, depressed, or hopeless: Several days 3. Trouble falling or staying asleep, or sleeping too much: Several days 4. Feeling tired or having little energy: Several days 5. Poor appetite or overeating: Several days 6. Feeling bad about yourself -- or that you are a failure or have let yourself or your family down: Several days 7. Trouble concentrating on things, such as reading the newspaper or watching television: Several days 8. Moving or speaking so slowly that other people could have noticed. Or the opposite - being so fidgety or restless that you have been moving around a lot more than usual: Several days 9. Thoughts that you would be better off , or of hurting yourself in some way: Not at all How difficult have these problems made it for you to do your work, take care of things at home, or get along with other people?: Not difficult at all Total Score: 8 Self-Efficacy 90-Day Re-eval Assessment We would like to know how confident you are in doing certain activities. Please select your confidence level for:: Select your confidence level for the following using the scale 1-10 where 1 is not at all confident and 10 is totally confident. Your score is the average of all 6 responses. Fatigue: How confident are you that you can keep the fatigue caused by your disease from interfering with the things you want to do? Select Number: 8 Physical Discomfort or Pain: How confident are you that you can keep the physical discomfort or pain of your disease from interfering with the things you want to do? Select Number: 8 Emotional Distress: How confident are you that you can keep the emotional distress caused by your disease from interfering with the things you want to do? Select Number: 8 Other Symptoms or Health Problems: How confident are you that you can keep other symptoms or health problems from interfering with the things you want to do? Select Number: 8 Different Tasks and Activities: How confident are you that you can do the different tasks and activities needed to manage your health condition so as to reduce your need to see a doctor? Select Number: 8 Medication: How confident are you that you can do things other than just taking medication to reduce how much your illness affects your everyday life? Select Number: 8 Total Score:: 8
== END 2017-09-20 23:59 ==
LOC: CR 11:30
PROVIDERS: Family Provider Family Medicine Geriatric Medicine; PCP Family Medicine Geriatric Medicine; Visit Provider Internal Medicine Cardiovascular Disease
DX: I25.810 Atherosclerosis of coronary artery bypass graft(s) without angina pectoris (principal); I21.4 Non-ST elevation (NSTEMI) myocardial infarction; Z95.1 Presence of aortocoronary bypass graft; Z98.61 Coronary angioplasty status; J44.9 Chronic obstructive pulmonary disease, unspecified
CPT/HCPCS: 93798; 94618

== ENCOUNTER 2017-10-19 11:30 | Outpatient (RCR) | payer MEDICAID, SELFPAY ==
[2017-09-21 00:50] VITALS: BP 160/72; BP 192/80
--- NOTE | 2017-10-12 12:57 | PCM.CR.ITP ---
General Information - General Information Admitting Diagnosis: PCI with coronary stenting - Education/Goals Barriers to Learning: Vision Impairment Individual Counseling: Discharge Assessment: Abnormal Cholesterol Levels, High Blood Pressure, Overweight/Obesity, Diabetes Cardiac Rehabilitation Goals: 1. Maintain the individual as the primary focus of care. 2. To improve the patient's quality of life. 3. Identification of cardiac risk factors and provide cardiac risk factor management. 4. Enhance the psychosocial status of the patient. 5. Reconditioning enough to allow the patient to resume customary activities. 6. Control symptoms of cardiac disease Scale for measuring improvement of personal goals: Enter appropriate number in Comments. 2 = Unchanged. 3 = Slightly Better. 4 = Moderate Improvement. 5 = Met my Goal Personal Goals: Discharge Reassessment: Improve management of stress and emotions, Improve energy level, Participate in home exercise program Exercise - Final/Discharge - Visit Date of Eval: 10/12/17 Session #:: 27 - 75% compliance - Stages of Change Stages of Change:: Action - Exercise Prescription Mode:: NuStep, Arm Ergometer Frequency (x/week): 3 Duration:: 30 METs: 4 60% increase Target Heart Rate:: 100-108 max hr 99 - Intervention Home Exercise/Activity Goal:: Moderate Exercise 30 min/day x 5 days/wk - Education Goal Progress: Goal Met - Exercise Program Goals Exercise Program Goals: Aerobic Activity >30 min, B/P <130/80 Nutrition - Initial Assessment - Program Goals Nutrition Program Goals: LDL <70. Total Cholesterol <200. HDL >45. Triglycerides <150. HgbA1C <7%. BMI <25 - Diabetes Do you monitor your blood sugar at home?: Yes Nutrition - Final Assessment - Program Goals Nutrition Program Goals: LDL <70. Total Cholesterol <200. HDL >45. Triglycerides <150. HgbA1C <7%. BMI <25 - Visit Date of Eval: 10/12/17 - Stages of Change Stages of Change:: Action - Diabetes Diabetes:: Yes - Weight Management Weight:: 90.265 kg - Education Education Goal Reached?: Yes Tobacco - Initial Assessment - Program Goals Tobacco Program Goals: Complete smoking cessation. Attend education classes. Improve Knowledge Test score - Learning Barriers Learning Barriers: Vision - retinopathy, limited vision right, legally blind in left eye. Tobacco - Final Assessment - Program Goals Tobacco Program Goals: Complete smoking cessation. Attend education classes. Improve Knowledge Test score - Stage of Change Stages of Change:: Action - Family Support Do you have family support?: Yes - Tobacco Use Tobacco Use: Non-smoker Do you use smokeless tobacco?: No - Intervention Smoking Cessation Referral:: No Individual Education/Counseling:: No - Education Education Goal Reached?: Yes Psychosocial - Final Assessmen - Target Goals Target Goals: Assess presence or absence of depression. Using a valid screening tool, maximizes coping skills. Positive support system - Stages of Change Stages of Change:: Action - Psychosocial Test Tool Used:: HANDS Depression Questionnaire - Intervention PS - Interventions: Yes Attend Stress Management Classes, Yes Uses Stress Management Skills, No Referral to Mental Health, No Referral to [facility] Case Management, No Referral to Physician - Education Education Goal Reached?: Yes - Assistive Devices Assistive Devices:: None, Cane Fall Risk Assessed:: Yes Patient Health Questionnaire Discharge Assessment 1. Little interest or pleasure in doing things: Several days 2. Feeling down, depressed, or hopeless: Several days 3. Trouble falling or staying asleep, or sleeping too much: Several days 4. Feeling tired or having little energy: Several days 5. Poor appetite or overeating: Several days 6. Feeling bad about yourself -- or that you are a failure or have let yourself or your family down: Several days 7. Trouble concentrating on things, such as reading the newspaper or watching television: Several days 8. Moving or speaking so slowly that other people could have noticed. Or the opposite - being so fidgety or restless that you have been moving around a lot more than usual: Several days 9. Thoughts that you would be better off , or of hurting yourself in some way: Not at all How difficult have these problems made it for you to do your work, take care of things at home, or get along with other people?: Not difficult at all Total Score: 8 Self-Efficacy Discharge Assessment We would like to know how confident you are in doing certain activities. Please select your confidence level for:: Select your confidence level for the following using the scale 1-10 where 1 is not at all confident and 10 is totally confident. Your score is the average of all 6 responses. Fatigue: How confident are you that you can keep the fatigue caused by your disease from interfering with the things you want to do? Select Number: 8 Physical Discomfort or Pain: How confident are you that you can keep the physical discomfort or pain of your disease from interfering with the things you want to do? Select Number: 8 Emotional Distress: How confident are you that you can keep the emotional distress caused by your disease from interfering with the things you want to do? Select Number: 8 Other Symptoms or Health Problems: How confident are you that you can keep other symptoms or health problems from interfering with the things you want to do? Different Tasks and Activities: How confident are you that you can do the different tasks and activities needed to manage your health condition so as to reduce your need to see a doctor? Select Number: 8 Medication: How confident are you that you can do things other than just taking medication to reduce how much your illness affects your everyday life? Select Number: 8 Nutrition Survey - Nutrition Survey Instructions Scoring Instructions: Scoring is as follows: Yes = 1 points. No = 0 point. Patient score that is >/=12 is considered to be at potential nutritional risk and could benefit from a referral to a registered dietitian. - Nutrition Survey Discharge Have you lost >10 lbs over the past 2 months without trying?: No Are you following a special diet at home for diabetes, low fat, or low salt?: Yes Do you eat less than 3 meals a day?: No Do you eat fatty meats (cornelius, sausage, ribs, etc), fried foods, desserts, large amounts of salad dressings, margarine, butter, or cheese most days?: Yes Do you have food allergies? [Enter types in comment field]: No Do you eat in restaurants more than 3 times a week?: No Do you season food with salt, seasoning salt, or garlic salt?: Yes Do you used canned, boxed, frozen meals, or soups, seasoning packets?: Yes
== END 2017-10-20 23:59 ==
LOC: CR 11:30
PROVIDERS: Family Provider Family Medicine Geriatric Medicine; PCP Family Medicine Geriatric Medicine; Visit Provider Internal Medicine Cardiovascular Disease
DX: I25.810 Atherosclerosis of coronary artery bypass graft(s) without angina pectoris (principal); I21.4 Non-ST elevation (NSTEMI) myocardial infarction; Z95.1 Presence of aortocoronary bypass graft; Z98.61 Coronary angioplasty status; J44.9 Chronic obstructive pulmonary disease, unspecified
CPT/HCPCS: 93798

== ENCOUNTER 2017-11-02 11:30 | Outpatient (RCR) | payer MEDICAID, SELFPAY ==
[2017-10-21 00:44] VITALS: BP 160/72; BP 192/80
[2017-11-13 12:48] VITALS: BP 128/60; BP 142/78
--- NOTE | 2017-11-13 12:49 | CR.ITP_ITS ---
Exercise - Final/Discharge - Visit Date of Eval: 11/13/17 - patient completed her CR on 11/02/2017 Session #:: 36 - Stages of Change Stages of Change:: Action - Exercise Prescription Mode:: NuStep, Arm Ergometer Frequency (x/week): 3 Duration:: 30 METs: 4 achieve maximal achievement Target Heart Rate:: 100-108 - Hypertension Do any of the following apply?: Yes, Medication, Diet Resting Blood Pressure:: 128/60 - optimal management Peak Exercise Blood Pressure:: 142/78 - Intervention Home Exercise/Activity Goal:: Moderate Exercise 30 min/day x 5 days/wk - Education Goal Progress: Goal Met - Exercise Program Goals Exercise Program Goals: Aerobic Activity >30 min Nutrition - Initial Assessment - Program Goals Nutrition Program Goals: LDL <70. Total Cholesterol <200. HDL >45. Triglycerides <150. HgbA1C <7%. BMI <25 - Diabetes Do you monitor your blood sugar at home?: Yes Nutrition - Final Assessment - Program Goals Nutrition Program Goals: LDL <70. Total Cholesterol <200. HDL >45. Triglycerides <150. HgbA1C <7%. BMI <25 - Visit Date of Eval: 11/13/17 - Stages of Change Stages of Change:: Action - Diabetes Diabetes:: Yes Insulin: Yes Non-Insulin Dependent?: Yes - metformin - Intervention Referral to dietitian:: No Referral to Diabetic Clinic:: No Will attend diet classes:: Yes - Education Education Goal Reached?: Yes Tobacco - Initial Assessment - Program Goals Tobacco Program Goals: Complete smoking cessation. Attend education classes. Improve Knowledge Test score - Learning Barriers Learning Barriers: Vision - retinopathy, limited vision right, legally blind in left eye. Tobacco - Final Assessment - Program Goals Tobacco Program Goals: Complete smoking cessation. Attend education classes. Improve Knowledge Test score - Stage of Change Stages of Change:: Action - Learning Barriers Cardiac Knowledge Test Score:: 15 - Family Support Do you have family support?: Yes - Tobacco Use Tobacco Use: Non-smoker Do you use smokeless tobacco?: No - Intervention Smoking Cessation Referral:: No Individual Education/Counseling:: No Education Schedule Given:: Yes - Education Education Goal Reached?: Yes Psychosocial - Initial Assess - Target Goals Target Goals: Assess presence or absence of depression. Using a valid screening tool, maximizes coping skills. Positive support system - Psychosocial Test Tool Used:: HANDS Depression Questionnaire - Assistive Devices Fall Risk Assessed:: Yes Psychosocial - Final Assessmen - Target Goals Target Goals: Assess presence or absence of depression. Using a valid screening tool, maximizes coping skills. Positive support system - Stages of Change Stages of Change:: Action - Psychosocial Test Tool Used:: HANDS Depression Questionnaire - Intervention PS - Interventions: Yes Attend Stress Management Classes, Yes Uses Stress Management Skills, No Referral to Mental Health, No Referral to [facility] Case Management, No Referral to Physician - Education Education Goal Reached?: Yes - Patient/Program Goal Preventative Medication(s):: Aspirin, Clopidogrel, Beta ivy, Statin/lipid - Assistive Devices Assistive Devices:: Cane Fall Risk Assessed:: Yes Patient Health Questionnaire Discharge Assessment 1. Little interest or pleasure in doing things: Several days 2. Feeling down, depressed, or hopeless: Not at all 3. Trouble falling or staying asleep, or sleeping too much: More than half the days 4. Feeling tired or having little energy: More than half the days 5. Poor appetite or overeating: Not at all 6. Feeling bad about yourself -- or that you are a failure or have let yourself or your family down: Not at all 7. Trouble concentrating on things, such as reading the newspaper or watching television: Not at all 8. Moving or speaking so slowly that other people could have noticed. Or the opposite - being so fidgety or restless that you have been moving around a lot more than usual: Not at all 9. Thoughts that you would be better off , or of hurting yourself in some way: Not at all How difficult have these problems made it for you to do your work, take care of things at home, or get along with other people?: Somewhat difficult - mostly related to dialysis treatments; often very tired and fatigued following a treatment. Total Score: 5 LUCAS-Q SV Test - Statements CAD is a disease of the arteries in the heart: False Examples of risk factors for heart disease: True Angina is chest pain or discomfort: True The benefits of resistance training include: True Eating more meat and dairy products: False Anti-platelet medications such as aspirin are important: True The only effective way to manage stress: False An exercise warm-up slowly increases heart rate: True Prepared, processed foods usually have high sodium: True Depression is common after a heart attack: True The statin medications lower cholesterol: True To control blood pressure, lower the amount of sodium: True If someone gets chest discomfort during walking: False Transfats are partially hydrogenated vegetable oils: True Sleep apnea that is not treated increases the risk: False To control cholesterol, one should become a vegetarian: False Someone knows if he/she is exercising at the right level: True Diabetes cannot be prevented with exercise & health eating: False Stress is a large risk for heart attack: True A diet that can help lower blood pressure is rich in: True - Total Score Total Correct Responses: 20 Self-Efficacy Discharge Assessment We would like to know how confident you are in doing certain activities. Please select your confidence level for:: Select your confidence level for the following using the scale 1-10 where 1 is not at all confident and 10 is totally confident. Your score is the average of all 6 responses. Fatigue: How confident are you that you can keep the fatigue caused by your disease from interfering with the things you want to do? Select Number: 10 Physical Discomfort or Pain: How confident are you that you can keep the physical discomfort or pain of your disease from interfering with the things you want to do? Select Number: 10 Emotional Distress: How confident are you that you can keep the emotional distress caused by your disease from interfering with the things you want to do? Select Number: 10 Other Symptoms or Health Problems: How confident are you that you can keep other symptoms or health problems from interfering with the things you want to do? Select Number: 10 Different Tasks and Activities: How confident are you that you can do the different tasks and activities needed to manage your health condition so as to reduce your need to see a doctor? Select Number: 10 Medication: How confident are you that you can do things other than just taking medication to reduce how much your illness affects your everyday life? Select Number: 10 Total Score:: 10 Nutrition Survey - Nutrition Survey Instructions Scoring Instructions: Scoring is as follows: Yes = 1 points. No = 0 point. Patient score that is >/=12 is considered to be at potential nutritional risk and could benefit from a referral to a registered dietitian. - Nutrition Survey Discharge Have you lost >10 lbs over the past 2 months without trying?: No Are you following a special diet at home for diabetes, low fat, or low salt?: Yes - Low fat, low sodium, 1800 calorie cardiac- diabetic diet Are you interested in meeting with a dietitian for help understanding your diet? : No Do you eat less than 3 meals a day?: Yes Do you eat fatty meats (cornelius, sausage, ribs, etc), fried foods, desserts, large amounts of salad dressings, margarine, butter, or cheese most days?: No Do you have food allergies? [Enter types in comment field]: No Do you eat in restaurants more than 3 times a week?: No Do you season food with salt, seasoning salt, or garlic salt?: No Do you used canned, boxed, frozen meals, or soups, seasoning packets?: Yes Total Score:: 3
== END 2017-11-20 23:59 ==
LOC: CR 11:30
PROVIDERS: Family Provider Family Medicine Geriatric Medicine; PCP Family Medicine Geriatric Medicine; Visit Provider Internal Medicine Cardiovascular Disease
DX: I25.810 Atherosclerosis of coronary artery bypass graft(s) without angina pectoris (principal); I21.4 Non-ST elevation (NSTEMI) myocardial infarction; Z95.1 Presence of aortocoronary bypass graft; Z98.61 Coronary angioplasty status; J44.9 Chronic obstructive pulmonary disease, unspecified
CPT/HCPCS: 93798

== ENCOUNTER → 2018-03-11 13:08 | Outpatient (CLI) | payer MEDICAID, SELFPAY ==
[2018-03-11 17:41] LABS: ALB/GLOB Ratio 0.9 RATIO (0.9-2.4); AST(SGOT) 13 U/L (15-37); Alanine Aminotransfer ALT/SGPT 24 U/L (13-56); Albumin, Serum 3.6 g/dL (3.2-5.0); Alkaline Phosphatase 96 U/L (45-117); Anion Gap 5 (5-15); BUN 16 mg/dL (7-18); BUN/Creat Ratio 8.4 RATIO (10-20); Calcium,Total 8.1 mg/dL (8.5-10.1); Chloride 98 mmol/L (98-107); Creatinine, Serum 1.91 mg/dL (0.55-1.02); EST Glomerular Filtration Rate 29 mL/min (>60); Est Glom Filt Rate - Afr Amer 35 mL/min (>60); Globulin 4.1 g/dL (2.2-4.2); Glucose 161 mg/dL (74-106); Potassium 3.8 mmol/L (3.5-5.1); Protein, Total 7.7 g/dL (6.4-8.2); Sodium Level 138 mmol/L (136-145); Thyroid Stim Hormone (TSH) 0.73 uIU/mL (0.358-3.74)
[2018-03-11 17:43] LABS: Vitamin D,25 Hydroxy 25.5 ng/mL (29.95-100.01)
[2018-03-11 17:56] LABS: Absolute Lymphocyte Count 1.31 X10^3/ul (0.83-4.51); Absolute Neutrophil Count 2.7 X10^3/uL (2.0-7.7); Basophil# 0.03 X10^3/uL; Basophil% 0.7 % (0-1); Eosinophils% 2.2 % (0-5); Hematocrit 34.3 % (37-47); Hemoglobin 10.7 g/dl (12.0-15.0); Lymphocyte # 1.31 X10^3/ul (4.0); Lymphocyte % 28.5 % (19-41); Mean Corp Hgb Conc 31.2 g/gl (32-36); Mean Corpuscular Hgb 30.1 pg (27.0-32.0); Mean Corpuscular Volume 96.6 fL (81-99); Mean Platelet Vol. 9.5 fl (6.2-12.0); Monocyte# 0.49 X10^3/uL; Monocyte% 10.7 % (0-10); Neutrophil # 2.65 X10^3/uL (2.7-7.7); Neutrophil % 57.7 % (47-70); Platelet Count 316 K/mm3 (150-450); RBC Distribution Width CV 16.3 % (11.6-14.6); RBC Distribution Width SD 54.8 fl (35.1-43.9); Red Blood Count 3.55 M/mm3 (4.2-5.4); White Blood Count 4.6 K/mm3 (4.4-11.0)
[2018-03-11 18:23] LABS: POSITIVE COUNT NO; POSITIVE DIFFERENTIAL NO; POSITIVE MORPHOLOGY NO
== END ==
PROVIDERS: Family Provider Family Medicine Geriatric Medicine; PCP Family Medicine Geriatric Medicine; Visit Provider Family Medicine Geriatric Medicine
DX: I10 Essential (primary) hypertension (principal); E11.9 Type 2 diabetes mellitus without complications; E55.9 Vitamin D deficiency, unspecified
CPT/HCPCS: 36415; 80053; 82306; 84443; 85025

== ENCOUNTER → 2018-06-19 12:07 | Outpatient (CLI) | payer MEDICAID, SELFPAY ==
[2018-02-06 11:09] VITALS: BMI 39.4
[2018-06-19 13:01] LABS: Absolute Lymphocyte Count 1.14 X10^3/ul (0.83-4.51); Absolute Neutrophil Count 1.5 X10^3/uL (2.0-7.7); Basophil# 0.04 X10^3/uL; Basophil% 1.1 % (0-1); Eosinophil# 0.12 X10^3/uL; Eosinophils% 3.3 % (0-5); Hematocrit 36.4 % (37-47); Hemoglobin 11.4 g/dl (12.0-15.0); Lymphocyte # 1.14 X10^3/ul (4.0); Lymphocyte % 31.7 % (19-41); Mean Corp Hgb Conc 31.3 g/gl (32-36); Mean Corpuscular Hgb 29.9 pg (27.0-32.0); Mean Corpuscular Volume 95.5 fL (81-99); Mean Platelet Vol. 9.9 fl (6.2-12.0); Monocyte# 0.77 X10^3/uL; Monocyte% 21.4 % (0-10); Neutrophil # 1.53 X10^3/uL (2.7-7.7); Neutrophil % 42.5 % (47-70); Platelet Count 268 K/mm3 (150-450); RBC Distribution Width SD 54.9 fl (35.1-43.9); Red Blood Count 3.81 M/mm3 (4.2-5.4); White Blood Count 3.6 K/mm3 (4.4-11.0)
[2018-06-19 13:03] LABS: POSITIVE COUNT NO; POSITIVE DIFFERENTIAL NO; POSITIVE MORPHOLOGY NO
[2018-06-19 13:24] LABS: Vitamin D,25 Hydroxy 28.8 ng/mL (29.95-100.01)
[2018-06-19 13:34] LABS: ALB/GLOB Ratio 0.9 RATIO (0.9-2.4); AST(SGOT) 11 U/L (15-37); Alanine Aminotransfer ALT/SGPT 17 U/L (13-56); Albumin, Serum 3.4 g/dL (3.2-5.0); Alkaline Phosphatase 85 U/L (45-117); Anion Gap 10 (5-15); BUN 29 mg/dL (7-18); BUN/Creat Ratio 6.1 RATIO (10-20); Chloride 97 mmol/L (98-107); Creatinine, Serum 4.77 mg/dL (0.55-1.02); EST Glomerular Filtration Rate 10 mL/min (>60); Est Glom Filt Rate - Afr Amer 12 mL/min (>60); Globulin 3.8 g/dL (2.2-4.2); Glucose 217 mg/dL (74-106); Potassium 4.1 mmol/L (3.5-5.1); Protein, Total 7.2 g/dL (6.4-8.2); Sodium Level 136 mmol/L (136-145); Thyroid Stim Hormone (TSH) 0.53 uIU/mL (0.358-3.74)
== END ==
PROVIDERS: Family Provider Family Medicine Geriatric Medicine; PCP Family Medicine Geriatric Medicine; Visit Provider Family Medicine Geriatric Medicine
DX: E11.9 Type 2 diabetes mellitus without complications (principal); E55.9 Vitamin D deficiency, unspecified; I10 Essential (primary) hypertension
CPT/HCPCS: 36415; 80053; 82306; 84443; 85025

== ENCOUNTER → 2018-07-18 16:27 | Outpatient (CLI) | payer MEDICAID, SELFPAY ==
[2018-02-06 11:09] VITALS: BMI 39.4
== END ==
PROVIDERS: Family Provider Family Medicine Geriatric Medicine; PCP Family Medicine Geriatric Medicine; Referring Provider Family Medicine Geriatric Medicine; Visit Provider Family Medicine Geriatric Medicine
DX: R50.9 Fever, unspecified (principal)
CPT/HCPCS: 87633

== ENCOUNTER → 2018-11-14 | Outpatient (CLI) | payer MEDICARE, MEDICAID, SELFPAY ==
[2018-08-16 13:29] VITALS: BMI 38.7
--- NOTE | 2018-11-14 17:15 | RAD_ITS ---
STUDY: X-RAY CHEST REASON FOR EXAM: Female, 58 years old. Congestive heart failure. TECHNIQUE: Frontal and lateral views of the chest. COMPARISON: 08/23/2017. FINDINGS: Normal lung volumes. Increased density in the medial lower right lung consistent with possible atelectasis or infiltrate in the middle lobe. Left lung is clear. No effusions. Normal size heart. Previous CABG. Normal mediastinum and branden. Normal visualized pulmonary arteries. Normal visualized aortic arch and descending thoracic aorta. Normal visualized thoracic spine. Normal visualized ribs, clavicles, and shoulders. There is no demonstrated abnormality of the visualized soft tissue structures of the upper abdomen. RAD/Chest PA and Lateral IMPRESSION: Possible atelectasis or infiltrate lower medial right lung. Electronically Signed: Mayank Obando MD at 17:39 EDT , Service support ,
== END | disposition home or self-care (01) ==
PROVIDERS: Family Provider Family Medicine Geriatric Medicine; PCP Family Medicine Geriatric Medicine; Referring Provider Family Medicine Geriatric Medicine; Visit Provider Family Medicine Geriatric Medicine
DX: I50.9 Heart failure, unspecified (principal)
CPT/HCPCS: 71046; 87633

== ENCOUNTER 2018-11-15 11:54 | Inpatient (IN) | payer MEDICARE, MEDICAID, SELFPAY ==
[2018-08-16 13:29] VITALS: BMI 38.7
[2018-11-15] VITALS (12 sets, daily range): BP systolic 92–119; BP diastolic 41–51; PULSE 53–65; RESP 14–22; TEMP 37.1–38.8; O2SAT 95–99; BMI 38.5; BMI 39.3
--- NOTE | 2018-11-15 12:48 | EKG12_ITS ---
Test Reason : Blood Pressure : / mmHG Vent. Rate : 060 BPM Atrial Rate : 060 BPM P-R Int : 154 ms QRS Dur : 088 ms QT Int : 464 ms P-R-T Axes : 056 -37 101 degrees QTc Int : 464 ms Normal sinus rhythm Possible Left atrial enlargement Left axis deviation Pulmonary disease pattern Nonspecific ST and T wave abnormality Abnormal ECG Confirmed by DAVIS ZARAGOZA, KELLEY ([id number]), news video editor MADDY STERLING ([id number]) on 11/20/2018 1:09:36 PM Referred By: Brayden King Confirmed By:AYESHA CANNON MD
--- NOTE | 2018-11-15 12:49 | ED.DCSUM_ITS ---
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 She has had a cough and was diagnosed with bronchitis yesterday by her doctor. Unknown if given any prescriptions. Patient has been very lethargic today and unable to stand or get up on her own, family was unable to lift her and called EMS. No known fall, trauma, injury. Patient denies most review of systems, see for details. - Past Medical History (1) 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 Status: Chronic Comment: CABG x3- KINCAID-LAD, SVG-CX, SVG-RCA 06/25/14 @ [facility] (2) COPD (chronic obstructive pulmonary disease) Status: Chronic (3) Chronic diastolic (congestive) heart failure Status: Chronic (4) Diabetes mellitus type 2 in obese Status: Chronic (5) End-stage renal disease on hemodialysis Status: Chronic (6) HLD (hyperlipidemia) Status: Chronic (7) Hypertension Status: Chronic (8) Nonrheumatic mitral (valve) insufficiency Status: Chronic (9) CLAUDIO (obstructive sleep apnea) Status: Chronic Comment: 17/11 cmH2O (10) Secondary hyperparathyroidism of renal origin Status: Chronic (11) Secondary pulmonary arterial hypertension Status: Chronic Past Medical History - Allergies and Home Meds Allergies/Adverse Reactions: Allergies lisinopril Allergy (Verified 11/15/18 11:55) Unknown ranitidine HCl [From Zantac] Allergy (Verified 11/15/18 11:55) Hives azithromycin Adverse Reaction (Verified 11/15/18 11:55) Nausea/Vom/Diarrhea Primary Care Physician: Brayden King Chi, MD [Primary Care Provider] - Surgical History: angioplasty, cataract, coronary bypass surgery - x3v, hysterectomy, - - AVF placement, back surgery Lives: With Family Smoking Status: Former smoker - Family History Paternal Family History: Family History (Last Reviewed 08/16/18 @ 13:24 by Anel Cesar) Father Heart disease Hypertension Prostate cancer Mother Hypertension Family History: Reports: Cancer - prostate, Heart Disease, Hypertension Sibling Family History: Family History (Last Reviewed 08/16/18 @ 13:24 by Anel Cesar) Father Heart disease Hypertension Prostate cancer Mother Hypertension Family History: Reports: Diabetes Maternal Family History: Family History (Last Reviewed 08/16/18 @ 13:24 by Anel Cesar) Father Heart disease Hypertension Prostate cancer Mother Hypertension Family History: Reports: Hypertension Review of Systems General: Reports: Fever, Malaise. Denies: Chills, Sweats Eyes: Denies: Visual changes - bilaterally, Diplopia ENT: Denies: Rhinorrhea, Sore throat Cardiovascular: Denies: Chest pain, Palpitations Respiratory: Reports: Cough. Denies: Dyspnea, Sputum, Dyspnea on exertion, Orthopnea Gastrointestinal: Denies: Abdominal pain, Nausea, Vomiting, Diarrhea, Melena, Hematochezia Genitourinary: Denies: Dysuria, Hematuria, Frequency Musculoskeletal: Denies: Neck pain, Back pain, Swelling, Extremity Pain Skin: Denies: Rash, Wounds Neurological: Reports: Headache - Only when I cough. Denies: Weakness, Numbness Physical Exam Vital Signs/Narrative: Vital Signs Temp Pulse Resp BP 11/15/18 11:55 101.9 F H 65 16 118/46 L Inital Vital Signs reviewed: Yes General: Well nourished, Well developed, Obese, No Acute Distress - alerts to voice. very lethargic. NAD, pleasant. Head: Normocephalic, Atraumatic Eyes: Perrl, EOMI ENT: Moist mucous membranes, No rhinorrhea Neck: Supple - w/o meningismus, Nontender, No lymphadenopathy, No JVD Cardiovascular: Regular rate, Regular rhythm, No murmurs, Normal S1, Normal S2. Negative for: Tachycardia Respiratory: No distress, Chest nontender, Rales - left base Abdomen: Soft, Nontender, Nondistended, Normal bowel sounds Back: Nontender, Normal Inspection Extremities: Nontender, No edema Skin: Normal color, No rash Neurological: Alert, Cranial nerves II-XII grossly intact, Normal Sensation, Confused - oriented to person, place, not the year/month, Weakness - generalized, symmetric x all 4 ext's. Negative for: Oriented x3 Psychological: Normal affect, Normal Mood Diagnostic/Tx/Re-eval Impressions Chest X-Ray 11/15/18 12:53 IMPRESSION: Left upper lobe and lingular infiltrate or atelectasis. Follow-up recommended to assure resolution Electronically Signed: Lawson Canela MD at 13:06 EDT , Service support , 11/15/18 12:53 Chest 1 View (Portable) [RAD] Stat Laboratory Results 11/15/18 11/15/18 11/15/18 12:40 12:40 12:40 WBC 10.8 RBC 2.77 L Hgb 8.6 L Hct 26.5 L MCV 95.7 MCH 31.0 MCHC 32.5 RDW Std Deviation 50.5 H RDW Coeff of Lauren 14.7 H Plt Count 258 MPV 10.5 Immature Gran % (Auto) 0.600 Neut % (Auto) 81.0 H Lymph % (Auto) 6.1 L Hubbard % (Auto) 11.4 H Eos % (Auto) 0.7 Baso % (Auto) 0.2 Absolute Neuts (auto) 8.8 H Absolute Lymphs (auto) 0.66 L Absolute Nucleated RBC 0.00 Nucleated RBC % 0 PT 16.1 H INR 1.3 APTT 33.1 Sodium 126 L Potassium 4.7 Chloride 91 L Carbon Dioxide 27.0 Anion Gap 8 BUN 72 H Creatinine 7.23 H Estim Creat Clear Calc 6.02 Est GFR (MDRD) Af Amer 7 L Est GFR (MDRD) Non-Af 6 L BUN/Creatinine Ratio 10.0 Glucose 364 H Lactic Acid Calcium 8.9 Total Bilirubin 0.60 AST 44 H ALT 31 Alkaline Phosphatase 73 Troponin I 0.078 H Total Protein 7.1 Albumin 2.9 L Globulin 4.2 Albumin/Globulin Ratio 0.7 L Urine Color Urine Clarity Urine pH Ur Specific [place] Urine Protein Urine Glucose (UA) Urine Ketones Urine Occult Blood Urine Nitrite Urine Bilirubin Urine Urobilinogen Ur Leukocyte Esterase Urine RBC Urine WBC Ur Squamous Epith Cells Urine Bacteria Hyaline Casts Urine Mucus 11/15/18 11/15/18 12:40 13:41 WBC RBC Hgb Hct MCV MCH MCHC RDW Std Deviation RDW Coeff of Lauren Plt Count MPV Immature Gran % (Auto) Neut % (Auto) Lymph % (Auto) [place] % (Auto) Eos % (Auto) Baso % (Auto) Absolute Neuts (auto) Absolute Lymphs (auto) Absolute Nucleated RBC Nucleated RBC % PT INR APTT Sodium Potassium Chloride Carbon Dioxide Anion Gap BUN Creatinine Estim Creat Clear Calc Est GFR (MDRD) Af Amer Est GFR (MDRD) Non-Af BUN/Creatinine Ratio Glucose Lactic Acid 1.8 Calcium Total Bilirubin AST ALT Alkaline Phosphatase Troponin I Total Protein Albumin Globulin Albumin/Globulin Ratio Urine Color Chel Urine Clarity Clear Urine pH 5.0 Ur Specific [place] 1.020 Urine Protein 30 H Urine Glucose (UA) 250 H Urine Ketones Negative Urine Occult Blood Negative Urine Nitrite Negative Urine Bilirubin Negative Urine Urobilinogen 1 H Ur Leukocyte Esterase 25 H Urine RBC 0 SEEN Urine WBC 0-5 SEEN Ur Squamous Epith Cells 0-5 SEEN Urine Bacteria RARE Hyaline Casts 0-5 SEEN Urine Mucus 0 SEEN - Rhythm Strip Rhythm Strip: Sinus Rhythm Rate: 60 Ectopy: None - EKG Initial EKG Interpretation: Sinus Rhythm, No Acute Injury Pattern Prior: Unchanged - Medical Decision Making Work-up shows left upper lobe pneumonia, she will be treated for healthcare associated pneumonia and given her lethargy, sepsis, admitted to the hospital for further treatment and evaluation. She remained hemodynamically stable in the emergency department and does not require the ICU at this time, nor does she require any mechanical ventilator assistance. Her EKG shows no acute injury pattern, her nonspecifically elevated troponin is likely a result of her chronic renal failure, as it is just barely not negative. Nothing on the work-up nor clinically suggest that she needs emergent dialysis. She was supposed to have a make-up session today but she missed it because of being lethargic and weak. Her lactate is within normal limits at 1.8 and she does not meet criteria for severe sepsis or shock at this time. Her sodium is 126, part of this is due to her hyperglycemia, slow saline was given in the emergency department. Patient is starting to drop her blood pressure, it is in the high 80s systolic. Will closely monitor her and start a fluid bolus. ED Disposition - Plan for ED Patient: Disposition: [facility] Diagnosis: Sepsis due to pneumonia, Healthcare-associated pneumonia, Chronic kidney disease with end stage renal failure on dialysis, Hyponatremia, Hyperglycemia due to type 2 diabetes mellitus Referrals: Brayden King Chi, MD [Primary Care Provider] -
--- NOTE | 2018-11-15 12:53 | RAD_ITS ---
STUDY: X-RAY CHEST REASON FOR EXAM: Female, 58 years old. Fever, altered mental status TECHNIQUE: Single AP portable view of the chest. COMPARISON: 11/14/2018 FINDINGS: Lungs are expanded. Right lung is clear, there is subtle opacification in the left upper lobe and lingula suggesting atelectasis or infiltrate. Follow-up recommended to assure resolution. There is no demonstrated pleural abnormality. Sternal cerclage wires and vascular clips are present from a prior sternotomy and coronary artery bypass graft procedure (CABG). Normal mediastinum and branden. Normal visualized pulmonary arteries. Normal visualized aortic arch and descending thoracic aorta. Normal visualized thoracic spine. Normal visualized ribs, clavicles, and shoulders. There is no demonstrated abnormality of the visualized soft tissue structures of the upper abdomen. RAD/Chest 1 View (Portable) IMPRESSION: Left upper lobe and lingular infiltrate or atelectasis. Follow-up recommended to assure resolution Electronically Signed: Lawson Canela MD at 13:06 EDT , Service support ,
[2018-11-15 13:20] LABS: Absolute Lymphocyte Count 0.66 X10^3/uL (0.83-4.51); Absolute Neutrophil Count 8.8 X10^3/uL (2.0-7.7); Basophil# 0.02 X10^3/uL; Basophil% 0.2 % (0-1); Eosinophil# 0.08 X10^3/uL; Eosinophils% 0.7 % (0-5); Hematocrit 26.5 % (37-47); Hemoglobin 8.6 g/dL (12.0-15.0); Lymphocyte # 0.66 X10^3/ul (4.0); Lymphocyte % 6.1 % (19-41); Mean Corp Hgb Conc 32.5 g/dL (32-36); Mean Corpuscular Volume 95.7 fL (81-99); Mean Platelet Vol. 10.5 fl (6.2-12.0); Monocyte# 1.24 X10^3/uL; Monocyte% 11.4 % (0-10); NRBC Flagged by Analyzer 0 % (0-5); Neutrophil # 8.76 X10^3/uL (2.7-7.7); Platelet Count 258 K/mm3 (150-450); RBC Distribution Width CV 14.7 % (11.6-14.6); RBC Distribution Width SD 50.5 fl (35.1-43.9); Red Blood Count 2.77 M/mm3 (4.2-5.4); White Blood Count 10.8 K/mm3 (4.4-11.0)
[2018-11-15 13:31] LABS: Lactic Acid 1.8 mmol/L (0.4-2.0)
[2018-11-15 13:33] LABS: ALB/GLOB Ratio 0.7 RATIO (0.9-2.4); AST(SGOT) 44 U/L (15-37); Alanine Aminotransfer ALT/SGPT 31 U/L (13-56); Albumin, Serum 2.9 g/dL (3.2-5.0); Alkaline Phosphatase 73 U/L (45-117); Anion Gap 8 (5-15); BUN 72 mg/dL (7-18); Calcium,Total 8.9 mg/dL (8.5-10.1); Chloride 91 mmol/L (98-107); Creatinine, Serum 7.23 mg/dL (0.55-1.02); EST Glomerular Filtration Rate 6 mL/min (>60); Est Glom Filt Rate - Afr Amer 7 mL/min (>60); Estimated Creatinine Clearance 6.02 ml/min; Globulin 4.2 g/dL (2.2-4.2); Glucose 364 mg/dL (74-106); Potassium 4.7 mmol/L (3.5-5.1); Protein, Total 7.1 g/dL (6.4-8.2); Sodium Level 126 mmol/L (136-145)
[2018-11-15] MEDS: Acetaminophen 325 MG Tablet 650 MG PO (13:34)
[2018-11-15] MEDS: 0.9% Normal Saline 1,000 ML 125 ML IV (13:34)
[2018-11-15 13:48] LABS: International Normalized Ratio 1.3; Partial Thromboplast Time 33.1 Seconds (24.1-36.2); Prothrombin Time (Protime)PT. 16.1 SECONDS (11.7-14.9)
[2018-11-15 13:49] LABS: Mucous, Urine 0 SEEN /hpf (<or=2+); Red Blood Cells-Urine 0 SEEN /hpf (0-5)
[2018-11-15 14:02] LABS: Color, Urine Amber (Yellow); Glucose, Dipstick 250 mg/dl (Normal); Ketone-Dipstick Negative (Negative); Leukocyte Esterase-Dipstick 25 /ul (Negative); Nitrite-Dipstick Negative (Negative); Occult Blood-Urine Negative /ul (Negative); Protein-Dipstick 30 mg/dl (Negative); Urine Bilirubin Dipstick Negative (Negative); Urine Clarity Clear (Clear); Urine Urobilinogen 1 mg/dl (Normal)
[2018-11-15 14:09] LABS: Bacteria RARE /hpf (None Seen); Hyaline Cast 0-5 SEEN /lpf (0-5); Squamous Epithelial Cells - UA 0-5 SEEN /hpf (5-10); White Blood Cells 0-5 SEEN /hpf (0-5)
--- NOTE | 2018-11-15 15:01 | NURSING ---
DR VALENTE FOR DR RAMIREZ
--- NOTE | 2018-11-15 15:07 | NURSING ---
PCU HCAP, SEPSIS, CRF/HD AMBROSIO
--- NOTE | 2018-11-15 15:50 | HP.PCM_ITS ---
Problem List (1) Sepsis due to pneumonia Status: Acute (2) Healthcare-associated pneumonia Status: Acute History of Present Illness Date of Admission: 11/15/18 Chief Complaint: malaise, shortness of breath. The patient is a 58 year old F who has not been feeling well for the past began just feeling weak and tired and then just progressively got worse over those symptoms. In the interim, patient also had increasing shortness of breath with exertion and cough. Patient goes to dialysis every Sunday and did miss her dialysis on as well as today because she was just so tired and sick. Presented to the emergency room and was found to have a left upper lobe infiltrate. Given that she is a dialysis patient patient did receive vancomycin and Zosyn for antibiotic coverage. Patient was slightly hypertensive down to the 80s did receive IV fluids and did improve her blood pressure [] Past Medical History Past Medical History (Chronic Problems): Chronic Problems (Last Reviewed 08/16/18 @ 13:24 by Anel Cesar) Chronic kidney disease with end stage renal failure on dialysis (Chronic) History of non-ST elevation myocardial infarction (NSTEMI) (Chronic) Nonrheumatic mitral (valve) insufficiency (Chronic) Secondary pulmonary arterial hypertension (Chronic) Aortocoronary bypass status (Chronic 06/25/14) CABG x3- KINCAID-LAD, SVG-CX, SVG-RCA 06/25/14 @ [facility] Chronic diastolic (congestive) heart failure (Chronic) 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) CABG x3- KINCAID-LAD, SVG-CX, SVG-RCA 06/25/14 @ [facility] AV fistula (Chronic) Morbid obesity (Chronic) Diabetes mellitus type 2 in obese (Chronic) End-stage renal disease on hemodialysis (Chronic) Hypertension (Chronic) HLD (hyperlipidemia) (Chronic) COPD (chronic obstructive pulmonary disease) (Chronic) CLAUDIO (obstructive sleep apnea) (Chronic) 17/11 cmH2O Hypokalemia (Chronic) Secondary hyperparathyroidism of renal origin (Chronic) Medical History: Medical History (Last Reviewed 11/15/18 @ 15:51 by Dixon Estrella DO) History of non-ST elevation myocardial infarction (NSTEMI) (Chronic) I25.2 Nonrheumatic mitral (valve) insufficiency (Chronic) I34.0 Secondary pulmonary arterial hypertension (Chronic) I27.21 Chronic diastolic (congestive) heart failure (Chronic) I50.32 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) I25.728 CABG x3- KINCAID-LAD, SVG-CX, SVG-RCA 06/25/14 @ [facility] NSTEMI (non-ST elevated myocardial infarction) (Resolved) I21.4 AV fistula (Chronic) I77.0 Morbid obesity (Chronic) E66.01 Diabetes mellitus type 2 in obese (Chronic) E11.9, E66.9 End-stage renal disease on hemodialysis (Chronic) N18.6, Z99.2 Hypertension (Chronic) I10 HLD (hyperlipidemia) (Chronic) E78.5 COPD (chronic obstructive pulmonary disease) (Chronic) J44.9 CLAUDIO (obstructive sleep apnea) (Chronic) G47.33 17/11 cmH2O Hypokalemia (Chronic) E87.6 Secondary hyperparathyroidism of renal origin (Chronic) N25.81 Anemia in chronic renal disease N18.9, D63.1 DDD (degenerative disc disease) Diabetic retinopathy E11.319 GERD (gastroesophageal reflux disease) K21.9 Glaucoma H40.9 Abnormal stress test (Resolved) R94.39 Acute respiratory failure with hypoxemia (Resolved) J96.01 Acute respiratory failure with hypoxia (Resolved) J96.01 Arteriovenous fistula stenosis (Resolved) T82.858A COPD with acute exacerbation (Resolved) J44.1 History of hysterectomy Z90.710 Non-ST elevation MT (NSTEMI) (Resolved) I21.4 Cardiomegaly (Inactive) I51.7 Allergies lisinopril Allergy (Verified 11/15/18 11:55) Unknown ranitidine HCl [From Zantac] Allergy (Verified 11/15/18 11:55) Hives azithromycin Adverse Reaction (Verified 11/15/18 11:55) Nausea/Vom/Diarrhea Home Medications: Ambulatory Orders Medication Instructions Recorded Aspirin [Aspirin, Baby] 81 mg PO DAILY@0800 06/07/17 Atorvastatin Calcium [Lipitor] 80 mg PO QHS 06/07/17 Brimonidine Tartrate 0.2% 1 drp RIGHT EYE TID PRN 06/07/17 [Brimonidine 0.2% 5Ml Bottle] Calcitriol [Rocaltrol] 0.5 mcg PO DAILY 06/07/17 Calcium Acetate 667 mg PO TIDCM 06/07/17 Famotidine [Pepcid] 40 mg PO DAILY 06/07/17 Furosemide [Lasix] 80 mg PO DAILY 06/07/17 Gabapentin [Neurontin] 300 mg PO QHS 06/07/17 Insulin Glargine,Hum.rec.anlog 52 unit SQ DAILY 06/07/17 [T[place]o Solostar] Pyridoxine HCl (Vitamin B6) [B-6] 100 mg PO DAILY 06/07/17 Sennosides [Senna] 8.6 mg PO QHS PRN 06/07/17 Vitamin B Complex/Folic Acid 0.4 mg PO DAILY 06/07/17 [B-Complex Tablet] Insulin Aspart [Novolog Flexpen] See Protocol SC TIDAC #1 flexpen 06/13/17 ergocalciferol (vitamin D2) 50,000 50,000 unit PO QMONTH cap 08/01/17 unit capsule carvedilol 25 mg tablet 25 mg PO BID #180 tab 02/04/18 isosorbide mononitrate ER 60 mg 60 mg PO BID #180 tab 02/04/18 tablet,extended release 24 hr clopidogrel 75 mg tablet 75 mg PO DAILY #30 tab 04/04/18 ranolazine ER 500 mg 500 mg PO BID #180 tab 06/03/18 tablet,extended release,12 hr Amlodipine [Norvasc] 5 mg PO DAILY 11/15/18 Citalopram Hydrobromide 20 mg PO DAILY 11/15/18 [Citalopram HBr] Folic Acid/Vitamin B Comp W-C 1 cap PO DAILY 11/15/18 [Nephrocaps, Renaphro] Surgical History: Surgical History (Last Reviewed 11/15/18 @ 15:51 by Dixon Estrella DO) Postsurgical percutaneous transluminal coronary angioplasty (PTCA) status (Resolved) Onset Date: 06/12/17 Z98.61 PCI w/PTCA of the distal anastomotic site of the SVG to OM 06/12/17 Aortocoronary bypass status (Chronic) Onset Date: 06/25/14 Z95.1 CABG x3- KINCAID-LAD, SVG-CX, SVG-RCA 06/25/14 @ [facility] AVF placement Onset Date: ~07/01/15 angioplasty of artriovenous fistula History of back surgery Z98.890 History of cataract surgery Z98.49 Surgical History: angioplasty, cataract, coronary bypass surgery - x3v, hysterectomy, - - AVF placement, back surgery Psychiatric History: No pertinent psych hx 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 Lives: With Family Smoking Status: Former smoker - *Family History Paternal Family History: Family History (Last Reviewed 11/15/18 @ 15:51 by Dixon Estrella DO) Father Heart disease Hypertension Prostate cancer Mother Hypertension History Items: Cancer - prostate, Heart Disease, Hypertension Sibling Family History: Family History (Last Reviewed 11/15/18 @ 15:51 by Dixon Estrella DO) Father Heart disease Hypertension Prostate cancer Mother Hypertension History Items: Diabetes Maternal Family History: Family History (Last Reviewed 11/15/18 @ 15:51 by Dixon Estrella DO) Father Heart disease Hypertension Prostate cancer Mother Hypertension History Items: Hypertension Review of Systems Constitutional: Reports: Anorexia, Chills, Fever, Malaise, Weakness. Denies: Night Sweats Eyes: Denies: Blurred vision, Double vision HEENT: Denies: Head Aches, Sinus Congestion, Sinus Drainage Cardiovascular: Reports: Chest Pain - Sharp, unclear if worse with her coughing. Denies: Palpitations Respiratory: Reports: Cough, Shortness of Breath, Shortness of breath upon exertion Gastrointestinal: Reports: Nausea, Vomiting. Denies: Diarrhea Genitourinary: Reports: - - Still makes urine. Denies: Dysuria Musculoskeletal: Denies: Joint Pain, Joint Tenderness Skin: Denies: Rash, Wounds Neurological: Denies: Numbness, Tingling, Focal weakness Psychiatric: Denies: Anxiety, Depression Hematologic/ Lymphatic: Denies: Easy Bruising, Easy Bleeding, Hx of blood clot Comment: A 10 point review of systems were negative except as mentioned in the history of present illness and the other review of systems. VTE Information - Inpt Only VTE Present on Admission: No VTE Mechan Device Prophylaxis: None VTE Pharm Prophylaxis ordered?: Yes Patient Problems: Active and Suspected Problems (Last Reviewed 08/16/18 @ 13:24 by Anel Cesar) Sepsis due to pneumonia (Acute) Healthcare-associated pneumonia (Acute) Hyponatremia (Acute) Hyperglycemia due to type 2 diabetes mellitus (Acute) - Physical Exam General: Alert, No apparent distress, - - Listless. Afebrile. HEENT: Atraumatic, Normocephalic Oral: Moist Mucosa, No Gingival or Mucosal Lesions/ Ulcerations Neck: No Nodes, Thyroid Normal Size and Texture Lungs: Clear to auscultation, Diminished Cardiovascular: Regular rate, No murmurs Abdomen: Bowel Sounds Present, Soft, Non Tender Extremities: No edema, No Calf Tenderness Skin: No rashes, No breakdown Musculoskeletal: No Tenderness to Palpation of Joints or Extremities, No Muscle Wasting Neurological: Deep Tendon Reflexes 2+/4 and Symmetrical, - - No clonus. Psych/Mental Status: Normal Affect, Appropriate Vital Signs Temp Pulse Resp BP Pulse Ox 37.2 C 59 L 17 99/48 L 96 11/15/18 15:36 11/15/18 15:36 11/15/18 15:36 11/15/18 14:00 11/15/18 15:36 Oxygen Flow Rate (L/min) 2 Oxygen Delivery Method Nasal Cannula Weight: 89.358 kg Body Mass Index (BMI) 38.5 Finger Stick Blood Glucose 275 Laboratory Tests Past 24 Hrs 11/15/18 11/15/18 11/15/18 12:40 12:40 12:40 WBC 10.8 RBC 2.77 L Hgb 8.6 L Hct 26.5 L MCV 95.7 MCH 31.0 MCHC 32.5 RDW Std Deviation 50.5 H RDW Coeff of Lauren 14.7 H Plt Count 258 MPV 10.5 Immature Gran % (Auto) 0.600 Neut % (Auto) 81.0 H Lymph % (Auto) 6.1 L [place] % (Auto) 11.4 H Eos % (Auto) 0.7 Baso % (Auto) 0.2 Absolute Neuts (auto) 8.8 H Absolute Lymphs (auto) 0.66 L Absolute Nucleated RBC 0.00 Nucleated RBC % 0 PT 16.1 H INR 1.3 APTT 33.1 Sodium 126 L Potassium 4.7 Chloride 91 L Carbon Dioxide 27.0 Anion Gap 8 BUN 72 H Creatinine 7.23 H Estim Creat Clear Calc 6.02 Est GFR (MDRD) Af Amer 7 L Est GFR (MDRD) Non-Af 6 L BUN/Creatinine Ratio 10.0 Glucose 364 H Lactic Acid Calcium 8.9 Total Bilirubin 0.60 AST 44 H ALT 31 Alkaline Phosphatase 73 Troponin I 0.078 H Total Protein 7.1 Albumin 2.9 L Globulin 4.2 Albumin/Globulin Ratio 0.7 L Urine Color Urine Clarity Urine pH Ur Specific [place] Urine Protein Urine Glucose (UA) Urine Ketones Urine Occult Blood Urine Nitrite Urine Bilirubin Urine Urobilinogen Ur Leukocyte Esterase Urine RBC Urine WBC Ur Squamous Epith Cells Urine Bacteria Hyaline Casts Urine Mucus 11/15/18 11/15/18 12:40 13:41 WBC RBC Hgb Hct MCV MCH MCHC RDW Std Deviation RDW Coeff of Lauren Plt Count MPV Immature Gran % (Auto) Neut % (Auto) Lymph % (Auto) [place] % (Auto) Eos % (Auto) Baso % (Auto) Absolute Neuts (auto) Absolute Lymphs (auto) Absolute Nucleated RBC Nucleated RBC % PT INR APTT Sodium Potassium Chloride Carbon Dioxide Anion Gap BUN Creatinine Estim Creat Clear Calc Est GFR (MDRD) Af Amer Est GFR (MDRD) Non-Af BUN/Creatinine Ratio Glucose Lactic Acid 1.8 Calcium Total Bilirubin AST ALT Alkaline Phosphatase Troponin I Total Protein Albumin Globulin Albumin/Globulin Ratio Urine Color Chel Urine Clarity Clear Urine pH 5.0 Ur Specific [place] 1.020 Urine Protein 30 H Urine Glucose (UA) 250 H Urine Ketones Negative Urine Occult Blood Negative Urine Nitrite Negative Urine Bilirubin Negative Urine Urobilinogen 1 H Ur Leukocyte Esterase 25 H Urine RBC 0 SEEN Urine WBC 0-5 SEEN Ur Squamous Epith Cells 0-5 SEEN Urine Bacteria RARE Hyaline Casts 0-5 SEEN Urine Mucus 0 SEEN EKG reviewed and showed normal sinus rhythm with left atrial enlargement. No acute changes. X-ray personally reviewed and it shows a hazy left upper lobe infiltrate. Assessment/Plan All Active Problems (Last Reviewed 08/16/18 @ 13:24 by Anel Cesar) Sepsis due to pneumonia (Acute) Healthcare-associated pneumonia (Acute) Hyponatremia (Acute) Hyperglycemia due to type 2 diabetes mellitus (Acute) Postsurgical percutaneous transluminal coronary angioplasty (PTCA) status (Resolved 06/12/17) NSTEMI (non-ST elevated myocardial infarction) (Resolved) Abnormal stress test (Resolved) Acute respiratory failure with hypoxemia (Resolved) Acute respiratory failure with hypoxia (Resolved) Arteriovenous fistula stenosis (Resolved) COPD with acute exacerbation (Resolved) Non-ST elevation MT (NSTEMI) (Resolved) 1. Sepsis * Present on arrival * Secondary to pneumonia * Blood pressure was low but did respond to IV fluids 2. Suspected gram-negative pneumonia * Continue with vancomycin and Zosyn * Pulmonary toilet * Check urinary antigens for Streptococcus and Legionella. Check sputum culture. * De-escalate antibiotics when appropriate 3. Hyponatremia * May be due to hypovolemia * Monitor 4. End-stage renal disease * Dialysis every Sunday, missed dialysis on the . 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 Diabetes mellitus type 2 * Uncontrolled * Continue with basal as well as sliding scale insulin * Check an A1c 6. VTE prophylaxis: Moderate risk. Subcu heparin Code Visit Inpatient E&M: 31803 Init Hosp L3
--- NOTE | 2018-11-15 16:33 | PCM.RX.CS ---
Consult Pharmacy has been consulted to manage selected antiobiotic: Vancomycin Type of Consult: New start Suspected Infection: Pneumonia Prior Doses of Antibiotics Received/Current Regimen: Vancomycin 1250mg x1 in ER on 11/15/18 Labs: Sodium 126 mmol/L (136-145) L 11/15/18 12:40 Potassium 4.7 mmol/L (3.5-5.1) 11/15/18 12:40 Chloride 91 mmol/L (98-107) L 11/15/18 12:40 Carbon Dioxide 27.0 mmol/L (21.0-32.0) 11/15/18 12:40 8 (5-15) 11/15/18 12:40 BUN 72 mg/dL (7-18) H 11/15/18 12:40 7.23 mg/dL (0.55-1.02) H 11/15/18 12:40 Est GFR (MDRD) Af Amer 7 mL/min (>60) L 11/15/18 12:40 Est GFR (MDRD) Non-Af 6 mL/min (>60) L 11/15/18 12:40 10.0 RATIO (10-20) 11/15/18 12:40 Glucose 364 mg/dL (74-106) H 11/15/18 12:40 Weight used for dosin.4 kg Estimated Creatinine Clearance: 6ml/min Goal Trough: 15-20 mcg/mL Pharmacy Plan for Drug Dosing: Pt did not receive the 1250mg dose of Vancomycin in ER on 11/15/18. It was transported with her to PCU. It will be administered to her there at approx 1630 on 11/15/18. Pt is on dialysis with a schedule. She did not receive dialysis on Sunday11/15/18 and is expected to receive it on Sunday11/16/18. Per Vancomycin dosing protocol, pt will receive the second dose of Vancomycin AFTER the next dialysis session. Order has not been entered, since Dialysis is still pending. Pharmacy Service will continue to monitor and adjust dosing as required.
[2018-11-15 16:44] LABS: Hemoglobin A1c < 3.5 % (4.2-6.3)
[2018-11-15 17:15] LABS: Bedside Glucose 370 mg/dL (70-110)
[2018-11-15] MEDS: Insulin Lispro 100 UNIT/ML INSULN.PEN SC (17:42)
[2018-11-15] MEDS: Calcium Acetate 667 MG Capsule PO (17:50)
[2018-11-15] MEDS: Calcium Acetate 667 MG Capsule 1334 MG PO (17:57)
--- NOTE | 2018-11-15 19:12 | CPS ---
Patient is sleeping at this time.
[2018-11-15] MEDS: Carvedilol 25 MG Tablet PO (21:48)
[2018-11-15] MEDS: Ranolazine 500 MG Tablet PO (21:48)
[2018-11-15] MEDS: guaiFENesin 1,200 MG Tablet 1200 MG PO (21:48)
[2018-11-15] MEDS: Heparin Injection (Vial) 5,000 UNIT/ML VIAL 5000 UNIT SC (21:48)
[2018-11-15] MEDS: Gabapentin 300 MG Capsule PO (21:48)
[2018-11-15] MEDS: Atorvastatin Calcium 80 MG Tablet PO (21:48)
[2018-11-15] MEDS: Isosorbide Mononitrate 60 MG Tablet PO (21:48)
[2018-11-15 22:20] LABS: Bedside Glucose 312 mg/dL (70-110)
[2018-11-16] VITALS (15 sets, daily range): BP systolic 102–130; BP diastolic 41–59; PULSE 57–73; RESP 16–20; TEMP 37.1–39.6; O2SAT 94–100
[2018-11-16] MEDS: Ondansetron 4 MG/2 ML Vial IV (00:47)
[2018-11-16] MEDS: Heparin Injection (Vial) 5,000 UNIT/ML VIAL 5000 UNIT SC ×3 (06:10→23:01)
[2018-11-16 06:41] LABS: Absolute Lymphocyte Count 0.55 X10^3/uL (0.83-4.51); Absolute Neutrophil Count 9.3 X10^3/uL (2.0-7.7); Basophil# 0.02 X10^3/uL; Basophil% 0.2 % (0-1); Hematocrit 25.4 % (37-47); Hemoglobin 8.1 g/dL (12.0-15.0); Lymphocyte # 0.55 X10^3/ul (4.0); Mean Corp Hgb Conc 31.9 g/dL (32-36); Mean Corpuscular Hgb 30.1 pg (27.0-32.0); Mean Corpuscular Volume 94.4 fL (81-99); Mean Platelet Vol. 10.8 fl (6.2-12.0); Monocyte# 1.13 X10^3/uL; Monocyte% 10.2 % (0-10); NRBC Flagged by Analyzer 0 % (0-5); Neutrophil # 9.28 X10^3/uL (2.7-7.7); POSITIVE DIFFERENTIAL YES; POSITIVE MORPHOLOGY YES; Platelet Count 207 K/mm3 (150-450); RBC Distribution Width SD 51.9 fl (35.1-43.9); Red Blood Count 2.69 M/mm3 (4.2-5.4); White Blood Count 11.1 K/mm3 (4.4-11.0)
[2018-11-16 07:09] LABS: Anion Gap 14 (5-15); BUN 91 mg/dL (7-18); BUN/Creat Ratio 11.2 RATIO (10-20); Calcium,Total 8.8 mg/dL (8.5-10.1); Chloride 94 mmol/L (98-107); Creatinine, Serum 8.16 mg/dL (0.55-1.02); EST Glomerular Filtration Rate 5 mL/min (>60); Est Glom Filt Rate - Afr Amer 7 mL/min (>60); Estimated Creatinine Clearance 5.33 ml/min; Glucose 303 mg/dL (74-106); Potassium 5.6 mmol/L (3.5-5.1); Sodium Level 132 mmol/L (136-145)
[2018-11-16 07:17] LABS: Differential Indicated SCAN CRITERIA MET
[2018-11-16 07:34] LABS: Differential Comment SCANNED
[2018-11-16 07:36] LABS: Bedside Glucose 317 mg/dL (70-110)
--- NOTE | 2018-11-16 07:37 | EKG12_ITS ---
Test Reason : RHYTHMN CHANGE Blood Pressure : / mmHG Vent. Rate : 059 BPM Atrial Rate : 059 BPM P-R Int : 138 ms QRS Dur : 088 ms QT Int : 448 ms P-R-T Axes : 077 -41 111 degrees QTc Int : 443 ms Sinus bradycardia Left axis deviation Nonspecific ST and T wave abnormality Abnormal ECG When compared with ECG of 15-NOV-2018 12:59, MANUAL COMPARISON REQUIRED, DATA IS UNCONFIRMED Confirmed by OLINDA MUSTAFA ([id number]), offline editor MYRIAM PEREZ ([id number]) on 11/22/2018 9:01:12 AM Referred By: Brayden King Confirmed By:OLINDA MUSTAFA
--- NOTE | 2018-11-16 08:04 | PCM.RX.CS ---
Consult Pharmacy has been consulted to manage selected antiobiotic: Vancomycin Type of Consult: Follow-up Suspected Infection: Pneumonia Prior Doses of Antibiotics Received/Current Regimen: VANCOMYCIN 1250MG IV X1 IN ED 11/15/18 @1641 Labs: Sodium 132 mmol/L (136-145) L 11/16/18 05:25 Potassium 5.6 mmol/L (3.5-5.1) H 11/16/18 05:25 Chloride 94 mmol/L (98-107) L 11/16/18 05:25 Carbon Dioxide 24.0 mmol/L (21.0-32.0) 11/16/18 05:25 14 (5-15) 11/16/18 05:25 BUN 91 mg/dL (7-18) H 11/16/18 05:25 8.16 mg/dL (0.55-1.02) H* 11/16/18 05:25 Est GFR (MDRD) Af Amer 7 mL/min (>60) L 11/16/18 05:25 Est GFR (MDRD) Non-Af 5 mL/min (>60) L 11/16/18 05:25 11.2 RATIO (10-20) 11/16/18 05:25 Glucose 303 mg/dL (74-106) H 11/16/18 05:25 Goal Trough: 15-20 mcg/mL Pharmacy Plan for Drug Dosing: Pharmacy to manage vancomycin per consult order. Pharmacy spoke with nursing this morning, patient is on Hemodialysis //, pt getting dialyzed this morning. Will go ahead and give 750mg IV x1 after dialysis today per protocol. Will schedule a random vancomycin trough prior to next hemodialysis session, which will be SundayNovember 19. PLAN/RECOMMENDATIONS 1. Vancomycin 750mg IV x1 to be given after HD 11/16/18 @1800 2. Random vancomycin level scheduled 11/19 with AM labs 3. Pharmacy Service will continue to monitor and adjust dosing as required.
--- NOTE | 2018-11-16 10:39 | CON.PCM_ITS ---
Consultation - Renal 11/16/18 PCP/ Referring MD: Requesting physician: Dixon Estrella DO Primary care physician: Brayden King MD Reason for Consultation:: ESRD renal mgmt - History of Present Illness History of Present Illness: The patient is a 58 year old F with ESRD due to diabetes on HD TTS missed dialysis due to not feeling well. She complains of weakness, fatigue. She developed a fever as outpt treated for pneumonia by PCP with zithromax, cefdinir and rocephin in office. She is currently on dialysis. BP stable. She received iv fluids on admission for low BP in the 's.She complaioned of in creasing shortness of breath with exertion. She denied cough or urinary symptoms. She was started on iv vancomycin and Zosyn for antibiotic coverage. She denied sick contacts at home. Symptoms started Sunday night after dialysis. She is pancultured. - Allergies Allergies: Allergies lisinopril Allergy (Verified 11/15/18 11:55) Unknown ranitidine HCl [From Zantac] Allergy (Verified 11/15/18 11:55) Hives azithromycin Adverse Reaction (Verified 11/15/18 11:55) Nausea/Vom/Diarrhea - Current Medications Current Medications: Current Medications Acetaminophen (Tylenol) 650 mg PO Q6H PRN PRN PRN Reason: Mild pain 1-3/Temp > 100.7 F Albuterol Sulfate (Ventolin Aerosols) 2.5 mg INHALATION Q2H PRN PRN PRN Reason: SOB/Wheezing Aspirin (Aspirin, Baby) 81 mg PO DAILY@0800 [facility] Atorvastatin Calcium (Lipitor) 80 mg PO QHS [facility] Last Admin: 11/15/18 21:48 Dose: 80 mg Documented by: Calcitriol (Rocaltrol) 0.5 mcg PO DAILY [facility] Calcium Acetate (Phoslo Gel Cap) 1,334 mg PO TIDCM [facility] Last Admin: 11/16/18 10:02 Dose: Not Given Documented by: Carvedilol (Coreg) 25 mg PO BID [facility] Last Admin: 11/15/18 21:48 Dose: 25 mg Documented by: Citalopram Hydrobromide (Celexa) 20 mg PO DAILY [facility] Clopidogrel Bisulfate (Plavix) 75 mg PO DAILY [facility] Dextrose (D50w Syringe) 0 gm IV X1 PRN; Protocol PRN Reason: Hypoglycemia Ergocalciferol (Vitamin D) 50,000 unit PO QMONTH@1000 [facility] Famotidine (Pepcid) 40 mg PO DAILY [facility] Gabapentin (Neurontin) 300 mg PO QHS [facility] Last Admin: 11/15/18 21:48 Dose: 300 mg Documented by: Glucagon () 1 mg IM .X1 PRN PRN Reason: Hypoglycemia Guaifenesin (Mucinex) 1,200 mg PO BID [facility] Last Admin: 11/15/18 21:48 Dose: 1,200 mg Documented by: Heparin Sodium (Porcine) (Heparin Na) 5,000 unit SC Q8 [facility] Last Admin: 11/16/18 06:10 Dose: 5,000 unit Documented by: Piperacillin Sod/Tazobactam (Sod 3.375 gm/ Sodium Chloride) 50 mls @ 12.5 mls/hr IV Q12 [facility] Last Admin: 11/15/18 21:48 Dose: 12.5 mls/hr Documented by: Vancomycin IV Pharmacy to Dose (1 ea/ Sodium Chloride) 500 mls @ 250 mls/hr IV X1 PRN; Protocol PRN Reason: Rx to Dose Vancomycin HCl 750 mg/ Sodium (Chloride) 265 mls @ 250 mls/hr IV X1 ONE Stop: 11/16/18 19:03 Insulin Glargine (Lantus (Bkc)) 52 units SC DAILY [facility] Insulin Human Lispro (Humalog Kwikpen (Bkc)) 0 unit SC TIDAC [facility]; Protocol Last Admin: 11/16/18 10:02 Dose: Not Given Documented by: Isosorbide Mononitrate (Imdur) 60 mg PO BID [facility] Last Admin: 11/15/18 21:48 Dose: 60 mg Documented by: Multivit/Ca Carb/B Cmplx/FA/Prenat (Nephrocaps, Renaphro) 1 capsule PO DAILY [facility] Ondansetron HCl (Zofran) 4 mg IV Q8H PRN PRN PRN Reason: NAUSEA/VOMITING Last Admin: 11/16/18 00:47 Dose: 4 mg Documented by: Oxycodone HCl (Oxyir) 5 mg PO Q4H PRN PRN PRN Reason: Moderate Pain (4-6/10) Pyridoxine HCl (Vitamin B-6) 100 mg PO DAILY [facility] Ranolazine (Ranexa) 500 mg PO BID [facility] Last Admin: 11/15/18 21:48 Dose: 500 mg Documented by: Senna (Senokot) 1 tablet PO QHS PRN PRN PRN Reason: Constipation Sodium Chloride () 10 - 40 ml IV UD PRN PRN Reason: SALINE FLUSH Throat Lozenges (Cepacol Sore Throat Lozenge) 1 lozenge MUCOUS MEM Q2H PRN PRN PRN Reason: Sore Throat/Cough - Past Medical History Past Medical History (Chronic Problems): Chronic Problems (Last Reviewed 11/15/18 @ 15:51 by Dixon Estrella DO) Chronic kidney disease with end stage renal failure on dialysis (Chronic) History of non-ST elevation myocardial infarction (NSTEMI) (Chronic) Nonrheumatic mitral (valve) insufficiency (Chronic) Secondary pulmonary arterial hypertension (Chronic) Aortocoronary bypass status (Chronic 06/25/14) CABG x3- KINCAID-LAD, SVG-CX, SVG-RCA 06/25/14 @ [facility] Chronic diastolic (congestive) heart failure (Chronic) 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) CABG x3- KINCAID-LAD, SVG-CX, SVG-RCA 06/25/14 @ [facility] AV fistula (Chronic) Morbid obesity (Chronic) Diabetes mellitus type 2 in obese (Chronic) End-stage renal disease on hemodialysis (Chronic) Hypertension (Chronic) HLD (hyperlipidemia) (Chronic) COPD (chronic obstructive pulmonary disease) (Chronic) CLAUDIO (obstructive sleep apnea) (Chronic) 17/11 cmH2O Hypokalemia (Chronic) Secondary hyperparathyroidism of renal origin (Chronic) - Past Surgical History Surgical History: angioplasty, cataract, coronary bypass surgery - x3v, hysterectomy, - - AVF placement, back surgery - Social History Smoking Status: Former smoker - Family History Paternal Family History: Family History (Last Reviewed 11/15/18 @ 15:51 by Dixon Estrella DO) Father Heart disease Hypertension Prostate cancer Mother Hypertension History Items: Cancer - prostate, Heart Disease, Hypertension Sibling Family History: Family History (Last Reviewed 11/15/18 @ 15:51 by Dixon Estrella DO) Father Heart disease Hypertension Prostate cancer Mother Hypertension History Items: Diabetes Maternal Family History: Family History (Last Reviewed 11/15/18 @ 15:51 by Dixon Estrella DO) Father Heart disease Hypertension Prostate cancer Mother Hypertension History Items: Hypertension Review of Systems Constitutional: Reports: Anorexia, Chills, Fever, Weakness HEENT: Denies: Head Aches Cardiovascular: Denies: Chest Pain, Edema Respiratory: Reports: Shortness of Breath, Shortness of breath upon exertion. Denies: Cough Gastrointestinal: Reports: - - anorexia. Denies: Abdominal Pain, Nausea, Vomiting Genitourinary: Denies: Dysuria Skin: Denies: Rash Hematologic/ Lymphatic: Reports: Anemia Patient Problems: Active and Suspected Problems (Last Reviewed 11/15/18 @ 15:51 by Dixon Estrella DO) Sepsis due to pneumonia (Acute) Healthcare-associated pneumonia (Acute) Hyponatremia (Acute) Hyperglycemia due to type 2 diabetes mellitus (Acute) - Physical Exam General: Alert, Oriented x3, Cooperative, No apparent distress HEENT: PERRLA, EOMI Lungs: Clear to auscultation Cardiovascular: Regular rate Abdomen: Bowel Sounds Present, Soft, Non Tender, Non-Distended Extremities: No edema Skin: No rashes Psych/Mental Status: Normal Affect, Appropriate, Alert and oriented to time, place, person, mood and affect Vital Signs Temp Pulse Resp BP Pulse Ox 101.3 F H 67 18 130/56 H 97 11/16/18 09:25 11/16/18 09:25 11/16/18 09:25 11/16/18 09:25 11/16/18 09:25 Oxygen Flow Rate (L/min) 2 Oxygen Delivery Method Nasal Cannula Weight: 91.4 kg Body Mass Index (BMI) 39.3 Finger Stick Blood Glucose 275 Intake and Output for Last 24 Hours 11/14/18 11/15/18 11/16/18 23:59 23:59 23:59 Intake Total 793 / 1555 1149 / 1149 Balance 793 / 1555 1149 / 1149 Laboratory Tests Past 24 Hrs 11/15/18 11/15/18 11/15/18 12:40 12:40 12:40 WBC 10.8 RBC 2.77 L Hgb 8.6 L Hct 26.5 L MCV 95.7 MCH 31.0 MCHC 32.5 RDW Std Deviation 50.5 H RDW Coeff of Lauren 14.7 H Plt Count 258 MPV 10.5 Immature Gran % (Auto) 0.600 Neut % (Auto) 81.0 H Lymph % (Auto) 6.1 L [place] % (Auto) 11.4 H Eos % (Auto) 0.7 Baso % (Auto) 0.2 Absolute Neuts (auto) 8.8 H Absolute Lymphs (auto) 0.66 L Absolute Nucleated RBC 0.00 Nucleated RBC % 0 Differential Comment PT 16.1 H INR 1.3 APTT 33.1 Sodium 126 L Potassium 4.7 Chloride 91 L Carbon Dioxide 27.0 Anion Gap 8 BUN 72 H Creatinine 7.23 H Estim Creat Clear Calc 6.02 Est GFR (MDRD) Af Amer 7 L Est GFR (MDRD) Non-Af 6 L BUN/Creatinine Ratio 10.0 Glucose 364 H Hemoglobin A1c Lactic Acid Calcium 8.9 Total Bilirubin 0.60 AST 44 H ALT 31 Alkaline Phosphatase 73 Troponin I 0.078 H Total Protein 7.1 Albumin 2.9 L Globulin 4.2 Albumin/Globulin Ratio 0.7 L Urine Color Urine Clarity Urine pH Ur Specific [place] Urine Protein Urine Glucose (UA) Urine Ketones Urine Occult Blood Urine Nitrite Urine Bilirubin Urine Urobilinogen Ur Leukocyte Esterase Urine RBC Urine WBC Ur Squamous Epith Cells Urine Bacteria Hyaline Casts Urine Mucus 11/15/18 11/15/18 11/15/18 12:40 12:40 13:41 WBC RBC Hgb Hct MCV MCH MCHC RDW Std Deviation RDW Coeff of Lauren Plt Count MPV Immature Gran % (Auto) Neut % (Auto) Lymph % (Auto) [place] % (Auto) Eos % (Auto) Baso % (Auto) Absolute Neuts (auto) Absolute Lymphs (auto) Absolute Nucleated RBC Nucleated RBC % Differential Comment PT INR APTT Sodium Potassium Chloride Carbon Dioxide Anion Gap BUN Creatinine Estim Creat Clear Calc Est GFR (MDRD) Af Amer Est GFR (MDRD) Non-Af BUN/Creatinine Ratio Glucose Hemoglobin A1c < 3.5 L Lactic Acid 1.8 Calcium Total Bilirubin AST ALT Alkaline Phosphatase Troponin I Total Protein Albumin Globulin Albumin/Globulin Ratio Urine Color Chel Urine Clarity Clear Urine pH 5.0 Ur Specific [place] 1.020 Urine Protein 30 H Urine Glucose (UA) 250 H Urine Ketones Negative Urine Occult Blood Negative Urine Nitrite Negative Urine Bilirubin Negative Urine Urobilinogen 1 H Ur Leukocyte Esterase 25 H Urine RBC 0 SEEN Urine WBC 0-5 SEEN Ur Squamous Epith Cells 0-5 SEEN Urine Bacteria RARE Hyaline Casts 0-5 SEEN Urine Mucus 0 SEEN 11/16/18 11/16/18 05:25 05:25 WBC 11.1 H RBC 2.69 L Hgb 8.1 L Hct 25.4 L MCV 94.4 MCH 30.1 MCHC 31.9 L RDW Std Deviation 51.9 H RDW Coeff of Lauren 15.0 H Plt Count 207 MPV 10.8 Immature Gran % (Auto) 0.600 Neut % (Auto) 84.0 H Lymph % (Auto) 5.0 L [place] % (Auto) 10.2 H Eos % (Auto) 0.0 Baso % (Auto) 0.2 Absolute Neuts (auto) 9.3 H Absolute Lymphs (auto) 0.55 L Absolute Nucleated RBC 0.00 Nucleated RBC % 0 Differential Comment SCANNED PT INR APTT Sodium 132 L Potassium 5.6 H Chloride 94 L Carbon Dioxide 24.0 Anion Gap 14 BUN 91 H Creatinine 8.16 H* Estim Creat Clear Calc 5.33 Est GFR (MDRD) Af Amer 7 L Est GFR (MDRD) Non-Af 5 L BUN/Creatinine Ratio 11.2 Glucose 303 H Hemoglobin A1c Lactic Acid Calcium 8.8 Total Bilirubin AST ALT Alkaline Phosphatase Troponin I Total Protein Albumin Globulin Albumin/Globulin Ratio Urine Color Urine Clarity Urine pH Ur Specific [place] Urine Protein Urine Glucose (UA) Urine Ketones Urine Occult Blood Urine Nitrite Urine Bilirubin Urine Urobilinogen Ur Leukocyte Esterase Urine RBC Urine WBC Ur Squamous Epith Cells Urine Bacteria Hyaline Casts Urine Mucus POC Glucose 11/16/18 11/15/18 11/15/18 07:23 21:39 17:10 POC Glucose 317 H 312 H 370 H Clinical Impression(s) from Imaging Studies Chest X-Ray 11/15/18 12:53 IMPRESSION: Left upper lobe and lingular infiltrate or atelectasis. Follow-up recommended to assure resolution Electronically Signed: Lawson Canela MD at 13:06 EDT , Service support , Assessment/Plan All Active Problems (Last Reviewed 11/15/18 @ 15:51 by Dixon Estrella DO) Sepsis due to pneumonia (Acute) Healthcare-associated pneumonia (Acute) Hyponatremia (Acute) Hyperglycemia due to type 2 diabetes mellitus (Acute) Postsurgical percutaneous transluminal coronary angioplasty (PTCA) status (Resolved 06/12/17) NSTEMI (non-ST elevated myocardial infarction) (Resolved) Abnormal stress test (Resolved) Acute respiratory failure with hypoxemia (Resolved) Acute respiratory failure with hypoxia (Resolved) Arteriovenous fistula stenosis (Resolved) COPD with acute exacerbation (Resolved) Non-ST elevation [place] (NSTEMI) (Resolved) 1. ESRD HD today and TTS. Seen on dialysis 2. Fever/HCAP iv antbx renal dosed. Pancx, resp panel negative 3. HTN stable 4. DM2 primary service mgmt 5. Anemia MORGAN on dialysis 6. Hyponatremia suspect from dehydration, pna. Correct with dialysis.
[2018-11-16 11:29] LABS: Phosphorus 5.2 mg/dL (2.5-4.9)
--- NOTE | 2018-11-16 13:16 | DIALYSIS ---
Hemodialysis completed, 4 hours on a 2K bath. Fluid removed was 2400 using crit line for guidance. Patient's temp is back up to 103. Report given to Niru CALERO
[2018-11-16 14:11] LABS: Bedside Glucose 262 mg/dL (70-110)
[2018-11-16] MEDS: Acetaminophen 650 MG Suppository RECTAL ×3 (14:12→23:02)
[2018-11-16] MEDS: Epoetin Alfa epbx 10,000 UNITS/ML 10000 UNIT SC (14:26)
--- NOTE | 2018-11-16 15:19 | PCM.PROGNOTE ---
Patient Problems: Active and Suspected Problems (Last Reviewed 11/15/18 @ 15:51 by Dixon Estrella DO) Sepsis due to pneumonia (Acute) Healthcare-associated pneumonia (Acute) Hyponatremia (Acute) Hyperglycemia due to type 2 diabetes mellitus (Acute) Subjective: Patient was seen and examined today, she is having occasional myoclonic jerking the patient seems to lethargic when she is doing this so I am not sure whether it is from uremia or whether it could be from some other sort of metabolic encephalopathy. Patient is able to tell me that she is in the hospital and what month it is, she recognizes family members who are in the room. Patient is currently febrile today, she remains on vancomycin and Zosyn for now - Physical Exam General: Oriented x3, Cooperative, No apparent distress, Well developed, Lethargic HEENT: Atraumatic, PERRLA, EOMI, Normocephalic Oral: Moist Mucosa Neck: Supple, Trachea Midline, Thyroid Normal Size and Texture Lungs: Clear to auscultation, Normal air movement, No rhonchi, No wheeze, No rales Cardiovascular: Regular rate, Regular Rhythm, Normal S1, Normal S2, No murmurs Abdomen: Bowel Sounds Present, Soft, Non Tender, Non-Distended, No hernias noted Extremities: No clubbing, No cyanosis, No edema, Capillary Refill Less than 3 Seconds Skin: No rashes, No breakdown Musculoskeletal: No Tenderness to Palpation of Joints or Extremities Neurological: Cranial nerves II-XII grossly intact, Neuro grossly intact, Sensory exam intact to light touch and pain Psych/Mental Status: Appropriate, - - Patient is lethargic but appears appropriate Vital Signs Temp Pulse Resp BP Pulse Ox 103.2 F H 73 16 110/54 L 95 11/16/18 14:28 11/16/18 13:15 11/16/18 13:15 11/16/18 13:15 11/16/18 13:15 Oxygen Flow Rate (L/min) 2 Oxygen Delivery Method Nasal Cannula Weight: 91.4 kg Body Mass Index (BMI) 39.3 Finger Stick Blood Glucose 275 Intake and Output for Last 24 Hours 11/14/18 11/15/18 11/16/18 23:59 23:59 23:59 Intake Total 793 / 1555 1149 / 1149 Output Total 2400 / 2400 Balance 793 / 1555 -1251 / -1251 Microbiology Past 72 Hours 11/15/18 13:41 Urine Culture - Preliminary Urine, Catheterized Culture exhibits no growth. Laboratory Tests Past 24 Hrs 11/15/18 11/16/18 11/16/18 12:40 05:25 05:25 WBC 11.1 H RBC 2.69 L Hgb 8.1 L Hct 25.4 L MCV 94.4 MCH 30.1 MCHC 31.9 L RDW Std Deviation 51.9 H RDW Coeff of Lauren 15.0 H Plt Count 207 MPV 10.8 Immature Gran % (Auto) 0.600 Neut % (Auto) 84.0 H Lymph % (Auto) 5.0 L [place] % (Auto) 10.2 H Eos % (Auto) 0.0 Baso % (Auto) 0.2 Absolute Neuts (auto) 9.3 H Absolute Lymphs (auto) 0.55 L Absolute Nucleated RBC 0.00 Nucleated RBC % 0 Differential Comment SCANNED Sodium 132 L Potassium 5.6 H Chloride 94 L Carbon Dioxide 24.0 Anion Gap 14 BUN 91 H Creatinine 8.16 H* Estim Creat Clear Calc 5.33 Est GFR (MDRD) Af Amer 7 L Est GFR (MDRD) Non-Af 5 L BUN/Creatinine Ratio 11.2 Glucose 303 H Hemoglobin A1c < 3.5 L Calcium 8.8 Phosphorus 11/16/18 05:25 WBC RBC Hgb Hct MCV MCH MCHC RDW Std Deviation RDW Coeff of Lauren Plt Count MPV Immature Gran % (Auto) Neut % (Auto) Lymph % (Auto) [place] % (Auto) Eos % (Auto) Baso % (Auto) Absolute Neuts (auto) Absolute Lymphs (auto) Absolute Nucleated RBC Nucleated RBC % Differential Comment Sodium Potassium Chloride Carbon Dioxide Anion Gap BUN Creatinine Estim Creat Clear Calc Est GFR (MDRD) Af Amer Est GFR (MDRD) Non-Af BUN/Creatinine Ratio Glucose Hemoglobin A1c Calcium Phosphorus 5.2 H POC Glucose 11/16/18 11/16/18 11/15/18 14:03 07:23 21:39 POC Glucose 262 H 317 H 312 H 11/15/18 17:10 POC Glucose 370 H Medical Necessity - Tobacco Use Smoking Status: Former smoker Assessment/Plan All Active Problems (Last Reviewed 11/15/18 @ 15:51 by Dixon Jopperi, DO) Sepsis due to pneumonia (Acute) Healthcare-associated pneumonia (Acute) Hyponatremia (Acute) Hyperglycemia due to type 2 diabetes mellitus (Acute) Postsurgical percutaneous transluminal coronary angioplasty (PTCA) status (Resolved 06/12/17) NSTEMI (non-ST elevated myocardial infarction) (Resolved) Abnormal stress test (Resolved) Acute respiratory failure with hypoxemia (Resolved) Acute respiratory failure with hypoxia (Resolved) Arteriovenous fistula stenosis (Resolved) COPD with acute exacerbation (Resolved) Non-ST elevation [place] (NSTEMI) (Resolved) #1 acute sepsis secondary to healthcare associated pneumonia present on admission-continue Zosyn and vancomycin, await cultures #2 healthcare acquired pneumonia-repeat chest x-ray tomorrow #3 end-stage renal disease-currently on dialysis chronically #4 metabolic encephalopathy-probably secondary to sepsis and uremia-continue to observe the patient, patient is lethargic today but she is spiking a high temperature today. #5 type 2 diabetes-monitor blood sugars #6 atherosclerotic heart disease #7 morbid obesity #8 hypertension #9 chronic obstructive pulmonary disease #10 obstructive sleep apnea-we will check with with the patient's family to see if she uses CPAP at home Code Visit Inpatient E&M: 13586 Subs Hosp L2
--- NOTE | 2018-11-16 15:20 | CASEMGMT ---
Met with patient at bedside and attempted to do Initial Assessment, However patient is Alert and seems Confused, unable to verbally respond appropriately at this time to perform accurate assessment. Patient states lives with kids and states lives with son Jeane, patient gives this writer producer permission to call her son and discuss assessment questions. Patient states that her HD is at [facility] [place] T/TH/SAT, however cannot twll writer producer her Seat time. This writer producer attempted to call Son Jeane on listed cell number via [employer], No answer, VM did not Verbalized his name and therefore no VM was left. CM to F/u for any emerging needs, discharge planning. Frandy Bailon RNCM
--- NOTE | 2018-11-16 17:51 | NURSING ---
Eugene carmona @ 1358. Pt pulled IV out at approx 1645. Unable to get new IV access. aware. Per pharmacy, undocument and chart against 1000 zosyn.
[2018-11-16] MEDS: Insulin Lispro 100 UNIT/ML INSULN.PEN SC (18:27)
[2018-11-16 18:41] LABS: Bedside Glucose 230 mg/dL (70-110)
[2018-11-16] MEDS: 0.9% NaCl Peripheral Flush Adult/Peds IV (20:15)
--- NOTE | 2018-11-16 22:59 | CPS ---
RT ASSISTED WITH HOME CPAP SETUP. PATIENTS FAMILY MEMBER BROUGHT IN UNIT WITHOUT PATIENT MASK. RT OBTAINED MASK FROM SLEEP LAB. RT BLED 2 LPM OXYGEN INTO UNIT. PATIENTS NURSE TO NOTIFY FAMILY TO BRING IN HOME CPAP MASK. NO ADVERSE REACTION NOTED TO SETUP.
[2018-11-16 23:30] LABS: Bedside Glucose 141 mg/dL (70-110)
[2018-11-17] VITALS (13 sets, daily range): BP systolic 112–121; BP diastolic 41–83; PULSE 62–66; RESP 18–20; TEMP 36.9–38.4; O2SAT 94–100
[2018-11-17] MEDS: Heparin Injection (Vial) 5,000 UNIT/ML VIAL 5000 UNIT SC ×3 (05:08→22:03)
[2018-11-17 07:01] LABS: Bedside Glucose 102 mg/dL (70-110)
[2018-11-17 07:54] LABS: Absolute Lymphocyte Count 0.89 X10^3/uL (0.83-4.51); Absolute Neutrophil Count 6.2 X10^3/uL (2.0-7.7); Absolute Nucleated RBC Count 0.02 10^3/uL (0-5); Basophil# 0.02 X10^3/uL; Basophil% 0.2 % (0-1); Hematocrit 25.6 % (37-47); Hemoglobin 8.1 g/dL (12.0-15.0); Lymphocyte # 0.89 X10^3/ul (4.0); Lymphocyte % 10.7 % (19-41); Mean Corp Hgb Conc 31.6 g/dL (32-36); Mean Corpuscular Hgb 30.6 pg (27.0-32.0); Mean Corpuscular Volume 96.6 fL (81-99); Mean Platelet Vol. 10.2 fl (6.2-12.0); Monocyte# 1.04 X10^3/uL; Monocyte% 12.5 % (0-10); NRBC Flagged by Analyzer 0.2 % (0-5); Neutrophil # 6.24 X10^3/uL (2.7-7.7); Platelet Count 232 K/mm3 (150-450); RBC Distribution Width CV 15.4 % (11.6-14.6); RBC Distribution Width SD 53.8 fl (35.1-43.9); Red Blood Count 2.65 M/mm3 (4.2-5.4); White Blood Count 8.3 K/mm3 (4.4-11.0)
[2018-11-17 08:35] LABS: ALB/GLOB Ratio 0.6 RATIO (0.9-2.4); AST(SGOT) 268 U/L (15-37); Alanine Aminotransfer ALT/SGPT 248 U/L (13-56); Albumin, Serum 2.4 g/dL (3.2-5.0); Alkaline Phosphatase 94 U/L (45-117); Anion Gap 12 (5-15); BUN 55 mg/dL (7-18); BUN/Creat Ratio 8.9 RATIO (10-20); Calcium,Total 8.8 mg/dL (8.5-10.1); Chloride 96 mmol/L (98-107); Creatinine, Serum 6.19 mg/dL (0.55-1.02); EST Glomerular Filtration Rate 7 mL/min (>60); Est Glom Filt Rate - Afr Amer 9 mL/min (>60); Estimated Creatinine Clearance 7.03 ml/min; Globulin 4.1 g/dL (2.2-4.2); Glucose 98 mg/dL (74-106); Protein, Total 6.5 g/dL (6.4-8.2); Sodium Level 136 mmol/L (136-145)
--- NOTE | 2018-11-17 09:27 | RAD_ITS ---
STUDY: X-RAY CHEST REASON FOR EXAM: Female, 58 years old. Shortness of breath, dyspnea. TECHNIQUE: Single AP portable upright view of the chest. COMPARISON: Portable AP upright chest x-ray November 15, 2018. FINDINGS: There is worsened segmental/subsegmental aeration in the medial lung bases. Ill-defined opacity in the medial left apex and lateral left base suggests a pleural effusion, possibly tracking along the pleural fissure. There is stable mild cardiac enlargement. Sternal cerclage wires are present from a prior sternotomy. Normal mediastinum and branden. Normal visualized pulmonary arteries. There is stable atherosclerotic calcification of the aortic arch. There are stable degenerative changes of the visualized lower thoracic spine. Metal hardware from prior bilateral posterior fusion of the cervical spine again noted. Normal visualized ribs, clavicles, and shoulders. There is no demonstrated abnormality of the visualized soft tissue structures of the upper abdomen. RAD/Chest 1 View (Portable) IMPRESSION: 1. Persistent left pleural effusion, with now with worsened aeration in the medial lung bases. Infection not excluded. 2. Prior median sternotomy. Stable mild cardiac enlargement. No CHF. Electronically Signed: Lawson Pineda MD at 17:11 EDT , Service support ,
--- NOTE | 2018-11-17 10:10 | PN_ITS ---
Patient Problems: Active and Suspected Problems (Last Reviewed 11/15/18 @ 15:51 by Dixon Estrella DO) Sepsis due to pneumonia (Acute) Healthcare-associated pneumonia (Acute) Hyponatremia (Acute) Hyperglycemia due to type 2 diabetes mellitus (Acute) Subjective: Patient was seen and examined today, nursing states the patient was not very alert this morning and I discontinued her basal insulin, I raised her sliding scale insulin. Patient does respond appropriately to questions and I am able to wake her up. Patient denies any fever or chills. Patient's temperature this morning was 99.9. Patient's blood pressure remained stable. Patient will get a repeat chest x-ray today. Creatinine today was 6.19. Liver enzymes were ramiro vated with AST 268 and ALT to 48. - Physical Exam General: Alert, Oriented x3, Cooperative, No apparent distress, Well developed, Well nourished HEENT: Atraumatic, PERRLA, EOMI, Normocephalic Oral: Moist Mucosa Neck: Supple, No JVD, Trachea Midline, Thyroid Normal Size and Texture Lungs: Clear to auscultation, Normal air movement, No rales, Wheezes - Scattered expiratory wheezes bilaterally Cardiovascular: Regular rate, Regular Rhythm, Normal S1, Normal S2, No murmurs, PMI Normal, No rub noted, No Gallop Abdomen: Bowel Sounds Present, Soft, Non Tender, Non-Distended, Obese Extremities: No clubbing, No cyanosis, No edema, Capillary Refill Less than 3 Seconds Skin: No rashes, No breakdown Musculoskeletal: No Tenderness to Palpation of Joints or Extremities Neurological: Cranial nerves II-XII grossly intact, Neuro grossly intact, Sensory exam intact to light touch and pain, Coordination normal Psych/Mental Status: Normal Affect, Appropriate, Alert and oriented to time, place, person, mood and affect Vital Signs Temp Pulse Resp BP Pulse Ox 99.9 F H 64 18 119/47 L 95 11/17/18 04:50 11/17/18 07:17 11/17/18 04:50 11/17/18 04:50 11/17/18 06:43 Oxygen Flow Rate (L/min) 2 Oxygen Delivery Method Nasal Cannula Weight: 91.1 kg Body Mass Index (BMI) 39.3 Finger Stick Blood Glucose 275 Intake and Output for Last 24 Hours 11/15/18 11/16/18 11/17/18 23:59 23:59 23:59 Intake Total 793 / 1555 2017.4 / 2017.4 68.6 / 68.6 Output Total 2400 / 2400 Balance 793 / 1555 -382.6 / -382.6 68.6 / 68.6 Microbiology Past 72 Hours 11/15/18 13:41 Urine Culture - Preliminary Urine, Catheterized Culture exhibits no growth. Laboratory Tests Past 24 Hrs 11/16/18 11/17/18 11/17/18 05:25 07:40 07:40 WBC 8.3 RBC 2.65 L Hgb 8.1 L Hct 25.6 L MCV 96.6 MCH 30.6 MCHC 31.6 L RDW Std Deviation 53.8 H RDW Coeff of Lauren 15.4 H Plt Count 232 MPV 10.2 Immature Gran % (Auto) 1.600 H Neut % (Auto) 75.0 H Lymph % (Auto) 10.7 L Starr % (Auto) 12.5 H Eos % (Auto) 0.0 Baso % (Auto) 0.2 Absolute Neuts (auto) 6.2 Absolute Lymphs (auto) 0.89 Absolute Nucleated RBC 0.02 Nucleated RBC % 0.2 Sodium 136 Potassium 4.0 Chloride 96 L Carbon Dioxide 28.0 Anion Gap 12 BUN 55 H Creatinine 6.19 H Estim Creat Clear Calc 7.03 Est GFR (MDRD) Af Amer 9 L Est GFR (MDRD) Non-Af 7 L BUN/Creatinine Ratio 8.9 L Glucose 98 Calcium 8.8 Phosphorus 5.2 H Total Bilirubin 0.70 AST 268 H ALT 248 H Alkaline Phosphatase 94 Total Protein 6.5 Albumin 2.4 L Globulin 4.1 Albumin/Globulin Ratio 0.6 L POC Glucose 11/17/18 11/16/18 11/16/18 06:55 22:42 18:22 POC Glucose 102 141 H 230 H 11/16/18 14:03 POC Glucose 262 H Medical Necessity - Tobacco Use Smoking Status: Former smoker Assessment/Plan All Active Problems (Last Reviewed 11/15/18 @ 15:51 by Dixon Estrella DO) Sepsis due to pneumonia (Acute) Healthcare-associated pneumonia (Acute) Hyponatremia (Acute) Hyperglycemia due to type 2 diabetes mellitus (Acute) Postsurgical percutaneous transluminal coronary angioplasty (PTCA) status (Resolved 06/12/17) NSTEMI (non-ST elevated myocardial infarction) (Resolved) Abnormal stress test (Resolved) Acute respiratory failure with hypoxemia (Resolved) Acute respiratory failure with hypoxia (Resolved) Arteriovenous fistula stenosis (Resolved) COPD with acute exacerbation (Resolved) Non-ST elevation [place] (NSTEMI) (Resolved) #1 acute sepsis secondary to healthcare associated pneumonia present on admission-continue Zosyn and vancomycin, await cultures, repeat chest x-ray, urine culture was negative for growth #2 healthcare acquired pneumonia-repeat chest x-ray #3 end-stage renal disease-currently on dialysis chronically #4 metabolic encephalopathy-probably secondary to sepsis and uremia-continue to observe the patient, patient's mental status today is improved #5 type 2 diabetes-monitor blood sugars #6 atherosclerotic heart disease #7 morbid obesity #8 hypertension #9 chronic obstructive pulmonary disease #10 obstructive sleep apnea-patient uses CPAP Code Visit Inpatient E&M: 14758 Subs Hosp L2
[2018-11-17 12:06] LABS: Bedside Glucose 75 mg/dL (70-110)
[2018-11-17] MEDS: Calcium Acetate 667 MG Capsule 1334 MG PO (12:25)
[2018-11-17 14:56] LABS: Bedside Glucose 192 mg/dL (70-110)
[2018-11-17 15:16] LABS: Base Excess 0 mmol/L (-2 to +2); Bicarbonate 24.6 mmol/L (22-26); Blood Gas Specimen Type ART; O2 Delivery Device Nasal Can; PO2 59 mmHG (75-100); SITE L Radial; SO2 90 % (95-99); Time Given 1508; Total Carbon Dioxide 26 mmol/L; pCO2 38.8 mmHg (35-45); pH 7.41 (7.35-7.45)
[2018-11-17 17:21] LABS: Bedside Glucose 174 mg/dL (70-110)
[2018-11-17] MEDS: Acetaminophen 325 MG Tablet 650 MG PO (20:47)
[2018-11-17] MEDS: Isosorbide Mononitrate 60 MG Tablet PO (22:03)
[2018-11-17] MEDS: Carvedilol 25 MG Tablet PO (22:03)
[2018-11-17] MEDS: Gabapentin 300 MG Capsule PO (22:04)
[2018-11-17] MEDS: Ranolazine 500 MG Tablet PO (22:04)
[2018-11-17] MEDS: Atorvastatin Calcium 80 MG Tablet PO (22:04)
[2018-11-17] MEDS: Insulin Lispro 100 UNIT/ML INSULN.PEN SC (22:04)
[2018-11-17] MEDS: guaiFENesin 1,200 MG Tablet 1200 MG PO (22:04)
[2018-11-17 23:56] LABS: Bedside Glucose 209 mg/dL (70-110)
[2018-11-18] VITALS (12 sets, daily range): BP systolic 85–125; BP diastolic 36–59; PULSE 53–65; RESP 15–20; TEMP 36.3–37.2; O2SAT 96–100
[2018-11-18] MEDS: Loperamide 2 MG Capsule PO (01:43)
[2018-11-18] MEDS: Acetaminophen 325 MG Tablet 650 MG PO (04:12)
[2018-11-18 04:26] LABS: Bedside Glucose 187 mg/dL (70-110)
--- NOTE | 2018-11-18 06:17 | NURSING ---
An extra dose of insulin given last night 11/17, insulin was not due at bedtime, wasnt due until 11/18 @ 0700. Notified Dr[address] Rene orders to cont to monitor patient
[2018-11-18] MEDS: Insulin Lispro 100 UNIT/ML INSULN.PEN SC ×3 (06:41→18:19)
[2018-11-18] MEDS: Heparin Injection (Vial) 5,000 UNIT/ML VIAL 5000 UNIT SC ×3 (06:42→21:54)
[2018-11-18 06:56] LABS: Bedside Glucose 163 mg/dL (70-110)
[2018-11-18 06:56] LABS: ALB/GLOB Ratio 0.5 RATIO (0.9-2.4); AST(SGOT) 164 U/L (15-37); Alanine Aminotransfer ALT/SGPT 214 U/L (13-56); Albumin, Serum 2.1 g/dL (3.2-5.0); Alkaline Phosphatase 85 U/L (45-117); Anion Gap 14 (5-15); BUN 67 mg/dL (7-18); BUN/Creat Ratio 8.6 RATIO (10-20); Calcium,Total 8.6 mg/dL (8.5-10.1); Chloride 95 mmol/L (98-107); Creatinine, Serum 7.75 mg/dL (0.55-1.02); EST Glomerular Filtration Rate 6 mL/min (>60); Est Glom Filt Rate - Afr Amer 7 mL/min (>60); Estimated Creatinine Clearance 5.61 ml/min; Glucose 179 mg/dL (74-106); Potassium 3.9 mmol/L (3.5-5.1); Protein, Total 6.1 g/dL (6.4-8.2); Sodium Level 135 mmol/L (136-145)
[2018-11-18] MEDS: Calcium Acetate 667 MG Capsule 1334 MG PO ×3 (10:40→18:18)
[2018-11-18] MEDS: Aspirin 81 MG TAB.CHEW PO (10:40)
[2018-11-18] MEDS: guaiFENesin 1,200 MG Tablet 1200 MG PO ×2 (10:41→21:53)
[2018-11-18] MEDS: Folic Acid/Vitamin B Comp W-C 1 Capsule 1 CAP PO (10:41)
[2018-11-18] MEDS: Famotidine 20 MG Tablet 40 MG PO (10:41)
[2018-11-18] MEDS: Citalopram 20 MG Tablet PO (10:41)
[2018-11-18] MEDS: Pyridoxine HCl 100 MG Tablet PO (10:41)
[2018-11-18] MEDS: Clopidogrel Bisulfate 75 MG Tablet PO (10:41)
--- NOTE | 2018-11-18 10:44 | CASEMGMT ---
ABDIAS PAZ assessment: Face to Face with patient for initial transition planning/care coordination assessment. RN JACKSON introduced self and role at [facility], pt voices understanding and consents to assessment at this time. Pt is sitting up in bed in no distress at this time. Pt is A/Ox4 at this time and answers all questions appropriately at this time. Pt with friend at bedside during assessment. Care providers, pharmacy, and demographics verified at this time. PCP: Fernando Specialists: Sal, cardio; Ayo, nephro; Carlitos pulshayla Preferred Pharmacy: [facility] in [place] Insurance: [employer] A/B, [employer] Prescription Benefit: MCR A/B, WILLA Living Will/HPOA: Pt states does have LW/HPOA and they are currently on file at [facility] at this time. Pt states that her mother, Carolina Casanova, is HPOA. LNOK: Carolina Casanova, mother; Jeane Yost, son Living Arrangements: Pt states lives with son mostly on main level of 2 story home and states only has to go upstairs occasionally to shower. Pt states is no concerns with other ADL's, see below regarding aide. Transportation: Pt states family/friends/transportation company drives and states no transportation concerns at this time. DME/HHC: Pt states has the following DME: cane, grab bars, shower chair, and cpap thru [facility]. Pt states has had several HHC's agencies set up in the past and has been to [facility] in the past. Pt states has a reading aide set up thru [facility] that comes out 3 times/week to assist and [facility] and per pt's [facility] CM, pt only has aide T,Th [phone]. Pt has HD T, Th, Sat at [employer] and pt states no concerns getting to dialysis. Pt states no concerns with going home at time of discharge. Pt states is disabled. Pt states does not smoke or drink ETOH. Pt states no further concerns/needs at this time. CM to follow PT/OT notes and for any further discharge planning/needs. Advised pt to ask for CM if any further questions/concerns/needs arise, voices understanding. Pt Goal: Home Plan: Home w/ resumption of aide thru [facility]. S[place]en ABDIAS PAZ
[2018-11-18] MEDS: Calcitriol 0.25 MCG Capsule 0.5 MCG PO (10:49)
--- NOTE | 2018-11-18 10:50 | PN_ITS ---
<Alvin Rajput - Last Filed: 11/18/18 10:50> Patient Problems: Active and Suspected Problems (Last Reviewed 11/15/18 @ 15:51 by Dixon Estrella DO) Sepsis due to pneumonia (Acute) Healthcare-associated pneumonia (Acute) Hyponatremia (Acute) Hyperglycemia due to type 2 diabetes mellitus (Acute) Subjective: Pt resting comfortably in bed. No dialysis today schedule T//Sa. No fever/chills. No LE edema. No CP/pressure. No Dizziness/LH. BP is poor, orals held this AM. - Physical Exam General: Alert, Oriented x3, Cooperative HEENT: Atraumatic, PERRLA, EOMI, Normocephalic Neck: Supple, No JVD, Negative Carotid Bruits Lungs: Clear to auscultation, Normal air movement, No rales Cardiovascular: Regular rate, No murmurs Abdomen: Bowel Sounds Present, Soft, Non Tender Extremities: No edema, Capillary Refill Less than 3 Seconds Skin: No rashes, No breakdown Musculoskeletal: No Tenderness to Palpation of Joints or Extremities Neurological: Cranial nerves II-XII grossly intact Psych/Mental Status: Normal Affect, Appropriate Vital Signs Temp Pulse Resp BP Pulse Ox 97.8 F 55 L 15 89/37 L 96 11/18/18 10:38 11/18/18 10:38 11/18/18 10:38 11/18/18 10:38 11/18/18 10:38 Oxygen Flow Rate (L/min) 2 Oxygen Delivery Method Nasal Cannula Weight: 208 lb 8.917 oz Body Mass Index (BMI) 39.3 Finger Stick Blood Glucose 275 Intake and Output for Last 24 Hours 11/16/18 11/17/18 11/18/18 23:59 23:59 23:59 Intake Total 2017.4 / 2017.4 693.5 / 693.5 286.1 / 286.1 Output Total 2400 / 2400 Balance -382.6 / -382.6 693.5 / 693.5 286.1 / 286.1 Microbiology Past 72 Hours 11/15/18 13:41 Urine Culture - Final Urine, Catheterized Culture exhibits no growth. 11/15/18 12:40 Blood Culture - Preliminary Blood Culture (Wb) - Anticubital Right No growth in 48 hours. 11/15/18 15:10 Blood Culture - Preliminary Blood Culture (Wb) - Right Hand No growth in 48 hours. Laboratory Tests Past 24 Hrs 11/17/18 11/18/18 15:09 06:20 Specimen Type ART Sample Site L Radial pH 7.41 Bicarbonate Actual 24.6 POC Total CO2 26 Base Excess 0 O2 Saturation 90 L ABG pCO2 38.8 ABG pO2 59 L Troy Test NA O2 Delivery Device Nasal Can Liter Flow 2.0 Blood Gas Notified Whom HOSP Blood Gas Notified Time 1508 Sodium 135 L Potassium 3.9 Chloride 95 L Carbon Dioxide 26.0 Anion Gap 14 BUN 67 H Creatinine 7.75 H* Estim Creat Clear Calc 5.61 Est GFR (MDRD) Af Amer 7 L Est GFR (MDRD) Non-Af 6 L BUN/Creatinine Ratio 8.6 L Glucose 179 H Calcium 8.6 Total Bilirubin 0.80 AST 164 H ALT 214 H Alkaline Phosphatase 85 Total Protein 6.1 L Albumin 2.1 L Globulin 4.0 Albumin/Globulin Ratio 0.5 L POC Glucose 11/18/18 11/18/18 11/17/18 06:36 04:08 22:01 POC Glucose 163 H 187 H 209 H 11/17/18 11/17/18 11/17/18 17:00 14:32 11:59 POC Glucose 174 H 192 H 75 Medical Necessity - Tobacco Use Smoking Status: Former smoker Assessment/Plan All Active Problems (Last Reviewed 11/15/18 @ 15:51 by Dixon Estrella DO) Sepsis due to pneumonia (Acute) Healthcare-associated pneumonia (Acute) Hyponatremia (Acute) Hyperglycemia due to type 2 diabetes mellitus (Acute) Postsurgical percutaneous transluminal coronary angioplasty (PTCA) status (Resolved 06/12/17) NSTEMI (non-ST elevated myocardial infarction) (Resolved) Abnormal stress test (Resolved) Acute respiratory failure with hypoxemia (Resolved) Acute respiratory failure with hypoxia (Resolved) Arteriovenous fistula stenosis (Resolved) COPD with acute exacerbation (Resolved) Non-ST elevation [place] (NSTEMI) (Resolved) 1. Acute sepsis 2/2 HCAP - Vanc/Zosyn. Fever last night. 2. ESRD - dialysis tomorrow 3. Hypotension - coreg / imdur held. 500 bolus, add midodrine. 4. T2DM with morbid obesity - SSI 5. CAD - on asa/statin/plavix/ranexa/coreg/imdur 6. HTN - as above 7. COPD - stable. PRN aerosols. 8. CLAUDIO - on CPAP DVT ppx: heparin DC planning: PTOT evals. Very weak. This patient was seen by Alvin Rajput PA-C under the supervision of Dr. Lucia. <Max Lucia - Last Filed: 11/18/18 12:12> - Physical Exam Vital Signs Temp Pulse Resp BP Pulse Ox 97.8 F 55 L 15 89/37 L 96 11/18/18 10:38 11/18/18 11:14 11/18/18 10:38 11/18/18 10:38 11/18/18 10:38 Oxygen Flow Rate (L/min) 2 Oxygen Delivery Method Nasal Cannula Weight: 94.6 kg Body Mass Index (BMI) 39.3 Finger Stick Blood Glucose 275 Intake and Output for Last 24 Hours 11/16/18 11/17/18 11/18/18 23:59 23:59 23:59 Intake Total 2017.4 / 2017.4 693.5 / 693.5 286.1 / 286.1 Output Total 2400 / 2400 Balance -382.6 / -382.6 693.5 / 693.5 286.1 / 286.1 Microbiology Past 72 Hours 11/15/18 13:41 Urine Culture - Final Urine, Catheterized Culture exhibits no growth. 11/15/18 12:40 Blood Culture - Preliminary Blood Culture (Wb) - Anticubital Right No growth in 48 hours. 11/15/18 15:10 Blood Culture - Preliminary Blood Culture (Wb) - Right Hand No growth in 48 hours. Laboratory Tests Past 24 Hrs 11/17/18 11/18/18 15:09 06:20 Specimen Type ART Sample Site L Radial pH 7.41 Bicarbonate Actual 24.6 POC Total CO2 26 Base Excess 0 O2 Saturation 90 L ABG pCO2 38.8 ABG pO2 59 L Troy Test NA O2 Delivery Device Nasal Can Liter Flow 2.0 Blood Gas Notified Whom HOSP Blood Gas Notified Time 1508 Sodium 135 L Potassium 3.9 Chloride 95 L Carbon Dioxide 26.0 Anion Gap 14 BUN 67 H Creatinine 7.75 H* Estim Creat Clear Calc 5.61 Est GFR (MDRD) Af Amer 7 L Est GFR (MDRD) Non-Af 6 L BUN/Creatinine Ratio 8.6 L Glucose 179 H Calcium 8.6 Total Bilirubin 0.80 AST 164 H ALT 214 H Alkaline Phosphatase 85 Total Protein 6.1 L Albumin 2.1 L Globulin 4.0 Albumin/Globulin Ratio 0.5 L POC Glucose 11/18/18 11/18/18 11/18/18 11:28 06:36 04:08 POC Glucose 153 H 163 H 187 H 11/17/18 11/17/18 11/17/18 22:01 17:00 14:32 POC Glucose 209 H 174 H 192 H Assessment/Plan This patient was seen in conjunction with Alvin Rajput PA-C . I have independently interviewed and examined the patient and reviewed pertinent historical, laboratory, and other data. Please refer to Alvin Rajput PA-C note for details of this patient's presentation, findings, and recommendations. I have reviewed Alvin Rajput PA-C note and concur with documented findings. In brief, patient is a 58-year-old lady admitted with sepsis secondary to pneumonia patient has been admitted to monitored bed where she is currently being managed Patient seen complains of recent lethargy. Creatinine up to 7. Patient is scheduled to undergo dialysis. Patient was found to be hypotensive prior to her dialysis did receive 500 cc normal saline bolus Physical Examination: GENERAL: Patient appears ill looking HEENT: Atraumatic; EYES; Anicteric, NECK; supple, normal thyroid, RESPIRATORY: Diminished to auscultation CARDIOVASCULAR: Regular S1 S2, GI: soft, non-tender, normoactive bowel sounds, : No Renal angle tenderness; EXTREMITIES: No edema, no clubbing, MUSCULOSKELETAL: No Joint Tenderness; NEURO: Awake; no lateralizing signs. PSYCH; Normal affect Assessment: 1. Sepsis secondary to pneumonia 2. End-stage renal disease 3. Diabetes mellitus type 2 4. Hypotension 5. Coronary artery disease 6. Obstructive sleep apnea 7. Obesity with BMI of 40.7 8. COPD 9. Hypertension BP meds on hold in view of relative hypotension Recommendations: 1. I have discussed the results of my overview and impressions with the patient 2. Options for management were reviewed Code Visit Inpatient E&M: 79173 [facility] Hosp L3
[2018-11-18] MEDS: Midodrine HCl 5 MG Tablet 10 MG PO ×3 (10:56→21:53)
--- NOTE | 2018-11-18 11:15 | CASEMGMT ---
Patient is active with the waiver program through [employer]. SW called [employer] and patient's correctional case records supervisor is Elena Vazquez ( [phone]). SW spoke with Elena and she said patient has an aide Tues and Thurs from [phone]. She also gets home delivered meals and has a medical alert button. Patient's aide is independent and not through an agency. She ask that we let her know when patient is being discharged. Ely ELIZONDO MSW
[2018-11-18 11:35] LABS: Bedside Glucose 153 mg/dL (70-110)
--- NOTE | 2018-11-18 14:17 | PN.RENAL_ITS ---
Patient Problems: Active and Suspected Problems (Last Reviewed 11/15/18 @ 15:51 by Dixon Estrella DO) Sepsis due to pneumonia (Acute) Healthcare-associated pneumonia (Acute) Hyponatremia (Acute) Hyperglycemia due to type 2 diabetes mellitus (Acute) Subjective: received fluid bolus for hypotension. Up to chair. Denied CP, dizziness. CXR reviewed. Coughing with liquids. Tmax 101. Episode of confusion at times, [place]. - Physical Exam General: Alert, Oriented x3, Cooperative Lungs: - - crackles left base Cardiovascular: Regular rate Abdomen: Bowel Sounds Present, Soft, Non Tender, Non-Distended Extremities: Edema - mild edema Musculoskeletal: No Muscle Wasting Psych/Mental Status: Alert and oriented to time, place, person, mood and affect Vital Signs Temp Pulse Resp BP Pulse Ox 97.4 F L 56 L 15 105/50 L 99 11/18/18 12:28 11/18/18 12:28 11/18/18 12:28 11/18/18 12:28 11/18/18 12:28 Oxygen Flow Rate (L/min) 2 Oxygen Delivery Method Nasal Cannula Weight: 94.6 kg Body Mass Index (BMI) 39.3 Finger Stick Blood Glucose 275 Intake and Output for Last 24 Hours 11/16/18 11/17/18 11/18/18 23:59 23:59 23:59 Intake Total 2016.4 / 2016.4 693.5 / 693.5 1046.1 / 1046.1 Output Total 2400 / 2400 Balance -382.6 / -382.6 693.5 / 693.5 1046.1 / 1046.1 Microbiology Past 72 Hours 11/15/18 13:41 Urine Culture - Final Urine, Catheterized Culture exhibits no growth. 11/15/18 12:40 Blood Culture - Preliminary Blood Culture (Wb) - Anticubital Right No growth in 48 hours. 11/15/18 15:10 Blood Culture - Preliminary Blood Culture (Wb) - Right Hand No growth in 48 hours. Laboratory Tests Past 24 Hrs 11/17/18 11/18/18 15:09 06:20 Specimen Type ART Sample Site L Radial pH 7.41 Bicarbonate Actual 24.6 POC Total CO2 26 Base Excess 0 O2 Saturation 90 L ABG pCO2 38.8 ABG pO2 59 L Troy Test NA O2 Delivery Device Nasal Can Liter Flow 2.0 Blood Gas Notified Whom HOSP Blood Gas Notified Time 1508 Sodium 135 L Potassium 3.9 Chloride 95 L Carbon Dioxide 26.0 Anion Gap 14 BUN 67 H Creatinine 7.75 H* Estim Creat Clear Calc 5.61 Est GFR (MDRD) Af Amer 7 L Est GFR (MDRD) Non-Af 6 L BUN/Creatinine Ratio 8.6 L Glucose 179 H Calcium 8.6 Total Bilirubin 0.80 AST 164 H ALT 214 H Alkaline Phosphatase 85 Total Protein 6.1 L Albumin 2.1 L Globulin 4.0 Albumin/Globulin Ratio 0.5 L POC Glucose 11/18/18 11/18/18 11/18/18 11:28 06:36 04:08 POC Glucose 153 H 163 H 187 H 11/17/18 11/17/18 11/17/18 22:01 17:00 14:32 POC Glucose 209 H 174 H 192 H Clinical Impression(s) from Imaging Studies Chest X-Ray 11/17/18 09:27 IMPRESSION: 1. Persistent left pleural effusion, with now with worsened aeration in the medial lung bases. Infection not excluded. 2. Prior median sternotomy. Stable mild cardiac enlargement. No CHF. Electronically Signed: Lawson Pineda MD at 17:11 EDT , Service support , Medical Necessity - Tobacco Use Smoking Status: Former smoker Assessment/Plan All Active Problems (Last Reviewed 11/15/18 @ 15:51 by Dixon Estrella DO) Sepsis due to pneumonia (Acute) Healthcare-associated pneumonia (Acute) Hyponatremia (Acute) Hyperglycemia due to type 2 diabetes mellitus (Acute) Postsurgical percutaneous transluminal coronary angioplasty (PTCA) status (Resolved 06/12/17) NSTEMI (non-ST elevated myocardial infarction) (Resolved) Abnormal stress test (Resolved) Acute respiratory failure with hypoxemia (Resolved) Acute respiratory failure with hypoxia (Resolved) Arteriovenous fistula stenosis (Resolved) COPD with acute exacerbation (Resolved) Non-ST elevation [place] (NSTEMI) (Resolved) 1. ESRD HD TTS. 2. Fever/HCAP iv antbx renal dosed. Pancx no growth so far, resp panel negative 3. HTN now with low BP. Suggest holding coreg, imdur, ranexa. Midodrine 5mg daily if BP remains low with holding vasomotor drugs 4. DM2 primary service mgmt 5. Anemia MORGAN on dialysis
[2018-11-18 17:08] LABS: Bedside Glucose 277 mg/dL (70-110)
[2018-11-18] MEDS: Atorvastatin Calcium 80 MG Tablet PO (21:51)
[2018-11-18] MEDS: Carvedilol 25 MG Tablet PO (21:51)
[2018-11-18] MEDS: Isosorbide Mononitrate 60 MG Tablet PO (21:52)
[2018-11-18] MEDS: Gabapentin 300 MG Capsule PO (21:52)
[2018-11-18] MEDS: Ranolazine 500 MG Tablet PO (21:54)
[2018-11-18 23:35] LABS: Bedside Glucose 260 mg/dL (70-110)
[2018-11-19] VITALS (9 sets, daily range): BP systolic 106–133; BP diastolic 52–82; PULSE 57–70; RESP 14–18; TEMP 36.8–36.9; O2SAT 94–100
[2018-11-19] MEDS: Midodrine HCl 5 MG Tablet 10 MG PO ×2 (05:11→14:15)
[2018-11-19] MEDS: Heparin Injection (Vial) 5,000 UNIT/ML VIAL 5000 UNIT SC ×2 (05:11→14:16)
[2018-11-19] MEDS: Insulin Lispro 100 UNIT/ML INSULN.PEN SC (06:45)
[2018-11-19 06:51] LABS: Bedside Glucose 260 mg/dL (70-110)
[2018-11-19 07:50] LABS: Hematocrit 25.4 % (37-47); Hemoglobin 8.1 g/dL (12.0-15.0); Mean Corp Hgb Conc 31.9 g/dL (32-36); Mean Corpuscular Volume 94.1 fL (81-99); Mean Platelet Vol. 11.1 fl (6.2-12.0); POSITIVE COUNT YES; POSITIVE MORPHOLOGY YES; Platelet Count 248 K/mm3 (150-450); RBC Distribution Width CV 15.5 % (11.6-14.6); RBC Distribution Width SD 53.8 fl (35.1-43.9)
[2018-11-19 08:12] LABS: Anion Gap 14 (5-15); BUN 74 mg/dL (7-18); BUN/Creat Ratio 8.9 RATIO (10-20); Calcium,Total 8.3 mg/dL (8.5-10.1); Chloride 91 mmol/L (98-107); Creatinine, Serum 8.29 mg/dL (0.55-1.02); EST Glomerular Filtration Rate 5 mL/min (>60); Est Glom Filt Rate - Afr Amer 6 mL/min (>60); Estimated Creatinine Clearance 5.25 ml/min; Glucose 271 mg/dL (74-106); Potassium 4.2 mmol/L (3.5-5.1); Sodium Level 129 mmol/L (136-145)
[2018-11-19 08:24] LABS: Vancomycin, Random Level 18.5 ug/mL (0.0-15.0)
[2018-11-19] MEDS: Clopidogrel Bisulfate 75 MG Tablet PO (09:34)
[2018-11-19] MEDS: Calcium Acetate 667 MG Capsule 1334 MG PO ×2 (09:34→12:03)
[2018-11-19] MEDS: Aspirin 81 MG TAB.CHEW PO (09:35)
[2018-11-19] MEDS: Famotidine 20 MG Tablet 40 MG PO (09:35)
[2018-11-19] MEDS: Ranolazine 500 MG Tablet PO (09:35)
[2018-11-19] MEDS: Calcitriol 0.25 MCG Capsule 0.5 MCG PO (09:35)
[2018-11-19] MEDS: guaiFENesin 1,200 MG Tablet 1200 MG PO (09:36)
[2018-11-19] MEDS: Citalopram 20 MG Tablet PO (09:36)
[2018-11-19] MEDS: Folic Acid/Vitamin B Comp W-C 1 Capsule 1 CAP PO (09:36)
[2018-11-19] MEDS: Pyridoxine HCl 100 MG Tablet PO (09:37)
--- NOTE | 2018-11-19 09:57 | PCM.RX.CS ---
Consult Pharmacy has been consulted to manage selected antiobiotic: Vancomycin Type of Consult: Follow-up Suspected Infection: Pneumonia Prior Doses of Antibiotics Received/Current Regimen: the most recent dose of 750mg was given 11/16/18 at 18:20 after dialysis Labs: Sodium 129 mmol/L (136-145) L 11/19/18 06:50 Potassium 4.2 mmol/L (3.5-5.1) 11/19/18 06:50 Chloride 91 mmol/L (98-107) L 11/19/18 06:50 Carbon Dioxide 24.0 mmol/L (21.0-32.0) 11/19/18 06:50 14 (5-15) 11/19/18 06:50 BUN 74 mg/dL (7-18) H 11/19/18 06:50 8.29 mg/dL (0.55-1.02) H* 11/19/18 06:50 Est GFR (MDRD) Af Amer 6 mL/min (>60) L 11/19/18 06:50 Est GFR (MDRD) Non-Af 5 mL/min (>60) L 11/19/18 06:50 8.9 RATIO (10-20) L 11/19/18 06:50 Glucose 271 mg/dL (74-106) H 11/19/18 06:50 Random Vancomycin 18.5 ug/mL (0.0-15.0) H 11/19/18 06:50 Microbiology: Microbiology 11/15/18 13:41 Urine, Catheterized Urine Culture - Final Culture exhibits no growth. 11/15/18 12:40 Blood Culture (Wb) - Anticubital Right Blood Culture - Preliminary No growth in 48 hours. 11/15/18 15:10 Blood Culture (Wb) - Right Hand Blood Culture - Preliminary No growth in 48 hours. Goal Trough: 15-20 mcg/mL Pharmacy Plan for Drug Dosing: The vancomycin random level taken before dialysis this morning was 18.5 mg/L. Per [facility] protocol, a dose of 500mg IV x1 will be entered to be given today after dialysis. Another random level will be ordered to be drawn on , 11/21/18, before dialysis. The patient is getting dialysis on //Sun. Pharmacy Service will continue to monitor and adjust dosing as required. Follow-Up Labs: Trough Vancomycin - pre-dialysis random level Labs to be done on [date and time ordered]: 11/21/18 AM pre-dialysis
--- NOTE | 2018-11-19 10:24 | CASEMGMT ---
SW spoke with patient as she did not do very well with therapy. She said she feels good and plans on going home at discharge. Ely ELIZONDO MSW
--- NOTE | 2018-11-19 10:52 | PCM.DC ---
- Discharge Diagnoses Current Active Problems: Current Active and Chronic Problems (Last Reviewed 11/15/18 @ 15:51 by Dixon Estrella DO) Sepsis due to pneumonia (Acute) Healthcare-associated pneumonia (Acute) Chronic kidney disease with end stage renal failure on dialysis (Chronic) Hyponatremia (Acute) Hyperglycemia due to type 2 diabetes mellitus (Acute) You will use the following diet at home:: Calorie/Carbohydrate Controlled (specify 1200, 1400, etc) - 1800 edna / day, Renal (restricted protein/sodium) Your food should be the consistency of: Regular Your liquids should be the consistency of: Regular/Thin Discharge Activity: Return to Normal Activity Allergies/Adverse Reactions: Allergies lisinopril Allergy (Verified 11/15/18 11:55) Unknown ranitidine HCl [From Zantac] Allergy (Verified 11/15/18 11:55) Hives azithromycin Adverse Reaction (Verified 11/15/18 11:55) Nausea/Vom/Diarrhea Medications to take at Discharge Aspirin [Aspirin, Baby] 81 mg PO DAILY@0800 06/07/17 Atorvastatin Calcium [Lipitor] 80 mg PO QHS 06/07/17 Calcitriol [Rocaltrol] 0.5 mcg PO DAILY 06/07/17 Calcium Acetate 1,334 mg PO TIDCM 06/07/17 Famotidine [Pepcid] 40 mg PO DAILY 06/07/17 Gabapentin [Neurontin] 300 mg PO QHS 06/07/17 Insulin Glargine,Hum.rec.anlog [Jamal Solabigail] 45 unit SQ DAILY 06/07/17 Pyridoxine HCl (Vitamin B6) [B-6] 100 mg PO DAILY 06/07/17 Sennosides [Senna] 8.6 mg PO QHS PRN 06/07/17 ergocalciferol (vitamin D2) 50,000 unit capsule 50,000 unit PO QMONTH cap 08/01/17 carvedilol 25 mg tablet 25 mg PO BID #180 tab 02/04/18 isosorbide mononitrate ER 60 mg tablet,extended release 24 hr 60 mg PO BID #180 tab 02/04/18 clopidogrel 75 mg tablet 75 mg PO DAILY #30 tab 04/04/18 ranolazine ER 500 mg tablet,extended release,12 hr 500 mg PO BID #180 tab 06/03/18 Citalopram Hydrobromide [Citalopram HBr] 20 mg PO DAILY 11/15/18 Folic Acid/Vitamin B Comp W-C [Nephrocaps, Renaphro] 1 cap PO DAILY 11/15/18 Timolol 0.5% [Timoptic] 1 drp RIGHT EYE BID 11/15/18 Albuterol Inhaler [Ventolin Hfa] 1 puff INHALATION Q6H PRN PRN #1 inhaler 11/19/18 Amoxicillin/Potassium Clav [Augmentin 500-125 Tablet] 1 ea PO UD #2 tab 11/19/18 Midodrine HCl [Proamatine] 10 mg PO TID #90 tab 11/19/18 The following prescriptions were given: Amoxicillin/Potassium Clav [Augmentin 500-125 Tablet] 1 ea PO UD #2 tab Transmission Status: Pending to [facility] Midodrine HCl [Proamatine] 10 mg PO TID #90 tab Transmission Status: Pending to [facility] Albuterol Inhaler [Ventolin Hfa] 1 puff INHALATION Q6H PRN PRN #1 inhaler PRN Reason: Sob &/Or Wheezing Transmission Status: Pending to [facility] Primary Care Physician: Brayden King Chi, MD [Primary Care Provider] - Please follow up with your Primary Care Physician in: 1-2 weeks Test Results: Test results from this visit will be discussed in further detail at your follow-up appointment, if applicable. Please Follow Up With: Elena Rollins DO When: As directed Proposed Discharge Date: 11/19/18
--- NOTE | 2018-11-19 11:02 | PCM.PN.REN ---
Patient Problems: Active and Suspected Problems (Last Reviewed 11/15/18 @ 15:51 by Dixon Estrella DO) Sepsis due to pneumonia (Acute) Healthcare-associated pneumonia (Acute) Hyponatremia (Acute) Hyperglycemia due to type 2 diabetes mellitus (Acute) Subjective: seen on dialysis, diarrhea resolved after nepro stopped. BP low on dialysis, ordered midodrine. DC to home on augmentin - Physical Exam General: - - somnolent HEENT: PERRLA, EOMI Lungs: Clear to auscultation Cardiovascular: Regular rate Abdomen: Bowel Sounds Present, Soft, Non Tender Extremities: No edema Vital Signs Temp Pulse Resp BP Pulse Ox 98.5 F 57 L 14 121/54 H 100 11/19/18 09:40 11/19/18 09:40 11/19/18 09:40 11/19/18 09:40 11/19/18 09:40 Oxygen Flow Rate (L/min) 2 Oxygen Delivery Method Room Air Weight: 94.4 kg Body Mass Index (BMI) 39.3 Finger Stick Blood Glucose 275 Intake and Output for Last 24 Hours 11/17/18 11/18/18 11/19/18 23:59 23:59 23:59 Intake Total 693.5 / 693.5 1286.1 / 1466.1 376 / 376 Balance 693.5 / 693.5 1286.1 / 1466.1 376 / 376 Microbiology Past 72 Hours 11/15/18 13:41 Urine Culture - Final Urine, Catheterized Culture exhibits no growth. 11/15/18 12:40 Blood Culture - Preliminary Blood Culture (Wb) - Anticubital Right No growth in 48 hours. 11/15/18 15:10 Blood Culture - Preliminary Blood Culture (Wb) - Right Hand No growth in 48 hours. Laboratory Tests Past 24 Hrs 11/19/18 11/19/18 11/19/18 06:50 06:50 06:50 WBC 8.1 RBC 2.70 L Hgb 8.1 L Hct 25.4 L MCV 94.1 MCH 30.0 MCHC 31.9 L RDW Std Deviation 53.8 H RDW Coeff of Lauren 15.5 H Plt Count 248 MPV 11.1 Immature Gran % (Auto) 12.200 H Neut % (Auto) 62.0 Lymph % (Auto) 11.5 L [place] % (Auto) 13.2 H Eos % (Auto) 0.5 Baso % (Auto) 0.6 Absolute Neuts (auto) 5.0 Absolute Lymphs (auto) 0.93 Nucleated RBC % 1.4 Sodium 129 L Potassium 4.2 Chloride 91 L Carbon Dioxide 24.0 Anion Gap 14 BUN 74 H Creatinine 8.29 H* Estim Creat Clear Calc 5.25 Est GFR (MDRD) Af Amer 6 L Est GFR (MDRD) Non-Af 5 L BUN/Creatinine Ratio 8.9 L Glucose 271 H Calcium 8.3 L Random Vancomycin 18.5 H POC Glucose 11/19/18 11/18/18 11/18/18 06:43 21:50 17:02 POC Glucose 260 H 260 H 277 H 11/18/18 11:28 POC Glucose 153 H Medical Necessity - Tobacco Use Smoking Status: Former smoker Assessment/Plan All Active Problems (Last Reviewed 11/15/18 @ 15:51 by Dixon Estrella DO) Sepsis due to pneumonia (Acute) Healthcare-associated pneumonia (Acute) Hyponatremia (Acute) Hyperglycemia due to type 2 diabetes mellitus (Acute) Postsurgical percutaneous transluminal coronary angioplasty (PTCA) status (Resolved 06/12/17) NSTEMI (non-ST elevated myocardial infarction) (Resolved) Abnormal stress test (Resolved) Acute respiratory failure with hypoxemia (Resolved) Acute respiratory failure with hypoxia (Resolved) Arteriovenous fistula stenosis (Resolved) COPD with acute exacerbation (Resolved) Non-ST elevation SC (NSTEMI) (Resolved) 1. ESRD HD TTS. Seen on dialysis 2. Fever/HCAP iv antbx renal dosed. Pancx no growth so far, resp panel negative 3. HTN now with low BP. Suggest holding coreg, imdur, ranexa. Remains on Midodrine 4. DM2 primary service mgmt 5. Anemia MORGAN on dialysis 6. Hyponatremia correct with dialysis
--- NOTE | 2018-11-19 11:50 | DIALYSIS ---
Hemodialysi x 3.15 hours completed. Pt tolerated tx well. Fluid balance -1000ml. [place] pulled. Hemostasis achieved. Dressing applied. Report given to ABDIAS Tatum. Pt stable
[2018-11-19] MEDS: Carvedilol 25 MG Tablet PO (12:03)
[2018-11-19] MEDS: Isosorbide Mononitrate 60 MG Tablet PO (12:03)
--- NOTE | 2018-11-19 12:04 | NURSING ---
pt just finished late breakfast, wants insulin and blood sugar checked later when she wants to eat again
--- NOTE | 2018-11-19 13:22 | PCM.DC.SUM ---
<Alvin Rajput - Last Filed: 11/19/18 13:22> Discharge Date and Diagnosis - Problem List Patient Problems: Active and Suspected Problems (Last Reviewed 11/15/18 @ 15:51 by Dixon Estrella DO) Sepsis due to pneumonia (Acute) Healthcare-associated pneumonia (Acute) Hyponatremia (Acute) Hyperglycemia due to type 2 diabetes mellitus (Acute) Date of Admission: 11/15/18 Date of Discharge: 11/19/18 - Primary Discharge Diagnosis Active and Suspected Problems (Last Reviewed 11/15/18 @ 15:51 by Dixon Estrella DO) Sepsis due to pneumonia (Acute), presumed gram negative Healthcare-associated pneumonia (Acute) Hyponatremia (Acute) Hyperglycemia due to type 2 diabetes mellitus (Acute) ESRD Hypotension Normocytic anemia Hx CAD, HTN, HLD COPD - no exacerbation Hx CLAUDIO compliant with CPAP - Secondary Discharge Diagnosis Chronic Problems (Last Reviewed 11/15/18 @ 15:51 by Dixon Estrella DO) Chronic kidney disease with end stage renal failure on dialysis (Chronic) History of non-ST elevation myocardial infarction (NSTEMI) (Chronic) Nonrheumatic mitral (valve) insufficiency (Chronic) Secondary pulmonary arterial hypertension (Chronic) Aortocoronary bypass status (Chronic 06/25/14) CABG x3- KINCAID-LAD, SVG-CX, SVG-RCA 06/25/14 @ [facility] Chronic diastolic (congestive) heart failure (Chronic) 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) CABG x3- KINCAID-LAD, SVG-CX, SVG-RCA 06/25/14 @ [facility] AV fistula (Chronic) Morbid obesity (Chronic) Diabetes mellitus type 2 in obese (Chronic) End-stage renal disease on hemodialysis (Chronic) Hypertension (Chronic) HLD (hyperlipidemia) (Chronic) COPD (chronic obstructive pulmonary disease) (Chronic) CLAUDIO (obstructive sleep apnea) (Chronic) 17/11 cmH2O Hypokalemia (Chronic) Secondary hyperparathyroidism of renal origin (Chronic) Hospital Course and Treatment Imaging Results: RAD/Chest 1 View (Portable) IMPRESSION: Left upper lobe and lingular infiltrate or atelectasis. Follow-up recommended to assure resolution Consults: Ayo - nephrology Operations: None Procedures: None Summary of Care Provided: Hospital Course: The patient is a 58 year old F with past medical history of ESRD on dialysis per Dr. Rollins, coronary artery disease with prior CABG x3, chronic diastolic heart failure, type 2 diabetes, pulmonary hypertension, obstructive sleep apnea compliant with CPAP, COPD, hypertension, hyperlipidemia, who presented to the emergency room with increased shortness of breath and generalized malaise. She came to the emergency room and was found to have a left upper lobe infiltrate and fever. She was admitted to the PCU on telemetry for healthcare associated pneumonia. She was provided with IV Vanc Zosyn, and aerosol therapy. Blood and urine cultures were negative. She improved on IV antibiotics. She initially required 2 L of oxygen however which she was able to be weaned off. She was compliant with CPAP at night. Dialysis was provided per Dr. Rollins. She did have some hypotension while here. She was placed on midodrine 3 times daily and her Coreg dose was decreased to 12.5 twice daily. She was significantly debilitated however she desired to go home with resumption of her aide service that she already has. She was transitioned to oral Augmentin and will complete 7 days of therapy. She was provided with an albuterol inhaler. She was discharged home in stable condition. She will need to follow-up with her PCP in 1 to 2 weeks and with nephrology as directed. Also of note she had abnormal LFTs while here presumably secondary to her acute infectious process, however she will need this followed up with as an outpatient. This patient was seen by Alvin Rajput PA-C under the supervision of Doctor Lucia. [] Patient Problems: Active and Suspected Problems (Last Reviewed 11/15/18 @ 15:51 by Dixon Estrella DO) Sepsis due to pneumonia (Acute) Healthcare-associated pneumonia (Acute) Hyponatremia (Acute) Hyperglycemia due to type 2 diabetes mellitus (Acute) - Physical Exam General: Alert, Oriented x3, Cooperative HEENT: Atraumatic, PERRLA, EOMI, Normocephalic Neck: Supple, No JVD, Negative Carotid Bruits Lungs: Clear to auscultation, Normal air movement Cardiovascular: Regular rate, No murmurs Abdomen: Bowel Sounds Present, Soft, Non Tender Extremities: No edema, Capillary Refill Less than 3 Seconds Skin: No rashes, No breakdown Musculoskeletal: No Tenderness to Palpation of Joints or Extremities Neurological: Cranial nerves II-XII grossly intact Psych/Mental Status: Normal Affect, Appropriate, Alert and oriented to time, place, person, mood and affect Vital Signs Temp Pulse Resp BP Pulse Ox 98.5 F 65 14 122/58 H 100 11/19/18 09:40 11/19/18 12:04 11/19/18 09:40 11/19/18 12:04 11/19/18 09:40 Oxygen Flow Rate (L/min) 2 Oxygen Delivery Method Room Air Weight: 208 lb 1.862 oz Body Mass Index (BMI) 39.3 Finger Stick Blood Glucose 275 Intake and Output for Last 24 Hours 11/17/18 11/18/18 11/19/18 23:59 23:59 23:59 Intake Total 693.5 / 693.5 1286.1 / 1466.1 596 / 596 Output Total 1000 / 1000 Balance 693.5 / 693.5 1286.1 / 1466.1 -404 / -404 Microbiology Past 72 Hours 11/15/18 13:41 Urine Culture - Final Urine, Catheterized Culture exhibits no growth. 11/15/18 12:40 Blood Culture - Preliminary Blood Culture (Wb) - Anticubital Right No growth in 48 hours. 11/15/18 15:10 Blood Culture - Preliminary Blood Culture (Wb) - Right Hand No growth in 48 hours. Laboratory Tests Past 24 Hrs 11/19/18 11/19/18 11/19/18 06:50 06:50 06:50 WBC 8.1 RBC 2.70 L Hgb 8.1 L Hct 25.4 L MCV 94.1 MCH 30.0 MCHC 31.9 L RDW Std Deviation 53.8 H RDW Coeff of Lauren 15.5 H Plt Count 248 MPV 11.1 Immature Gran % (Auto) 12.200 H Neut % (Auto) 62.0 Lymph % (Auto) 11.5 L [place] % (Auto) 13.2 H Eos % (Auto) 0.5 Baso % (Auto) 0.6 Absolute Neuts (auto) 5.0 Absolute Lymphs (auto) 0.93 Nucleated RBC % 1.4 Sodium 129 L Potassium 4.2 Chloride 91 L Carbon Dioxide 24.0 Anion Gap 14 BUN 74 H Creatinine 8.29 H* Estim Creat Clear Calc 5.25 Est GFR (MDRD) Af Amer 6 L Est GFR (MDRD) Non-Af 5 L BUN/Creatinine Ratio 8.9 L Glucose 271 H Calcium 8.3 L Random Vancomycin 18.5 H POC Glucose 11/19/18 11/18/18 11/18/18 06:43 21:50 17:02 POC Glucose 260 H 260 H 277 H Discharge Diet: Low fat/ Low Cholesterol, 1800 Calorie Control Diet, 2000 mg Sodium Diet Discharge Activity: Return to Normal Activity Home Medications: Medications to take at Discharge Aspirin [Aspirin, Baby] 81 mg PO DAILY@0800 06/07/17 Atorvastatin Calcium [Lipitor] 80 mg PO QHS 06/07/17 Calcitriol [Rocaltrol] 0.5 mcg PO DAILY 06/07/17 Calcium Acetate 1,334 mg PO TIDCM 06/07/17 Famotidine [Pepcid] 40 mg PO DAILY 06/07/17 Gabapentin [Neurontin] 300 mg PO QHS 06/07/17 Insulin Glargine,Hum.rec.anlog [Toujeo Solostar] 45 unit SQ DAILY 06/07/17 Pyridoxine HCl (Vitamin B6) [B-6] 100 mg PO DAILY 06/07/17 Sennosides [Senna] 8.6 mg PO QHS PRN 06/07/17 ergocalciferol (vitamin D2) 50,000 unit capsule 50,000 unit PO QMONTH cap 08/01/17 isosorbide mononitrate ER 60 mg tablet,extended release 24 hr 60 mg PO BID #180 tab 02/04/18 clopidogrel 75 mg tablet 75 mg PO DAILY #30 tab 04/04/18 ranolazine ER 500 mg tablet,extended release,12 hr 500 mg PO BID #180 tab 06/03/18 Citalopram Hydrobromide [Citalopram HBr] 20 mg PO DAILY 11/15/18 Folic Acid/Vitamin B Comp W-C [Nephrocaps, Renaphro] 1 cap PO DAILY 11/15/18 Timolol 0.5% [Timoptic] 1 drp RIGHT EYE BID 11/15/18 Albuterol Inhaler [Ventolin Hfa] 1 puff INHALATION Q6H PRN PRN #1 inhaler 11/19/18 Amoxicillin/Potassium Clav [Augmentin 500-125 Tablet] 1 ea PO DAILY #4 tab 11/19/18 Carvedilol [Coreg] 12.5 mg PO BID #30 tab 11/19/18 Midodrine HCl [Proamatine] 10 mg PO TID #90 tab 11/19/18 Following Prescrptions Were Given to Patient: Amoxicillin/Potassium Clav [Augmentin 500-125 Tablet] 1 ea PO DAILY #4 tab Carvedilol [Coreg] 12.5 mg PO BID #30 tab Midodrine HCl [Proamatine] 10 mg PO TID #90 tab Transmission Status: Received by [facility] Albuterol Inhaler [Ventolin Hfa] 1 puff INHALATION Q6H PRN PRN #1 inhaler PRN Reason: Sob &/Or Wheezing Transmission Status: Received by [facility] Primary Care Physician: Brayden King Chi, MD [Primary Care Provider] - Please follow up with your Primary Care Physician in: 1-2 weeks Please Follow Up With: Elena Rollins DO When: As directed Please Follow Up With: Brayden King Chi, MD Disposition: Home Minutes spent on discharge:: 35 Patient Condition:: Stable Medical Necessity - Tobacco Use Smoking Status: Former smoker Meaningful Use Info Meaningful Use Diagnoses (Choose all that apply): None applicable <Max Lucia - Last Filed: 11/19/18 14:32> Discharge Date and Diagnosis - Primary Discharge Diagnosis Active and Suspected Problems (Last Reviewed 11/15/18 @ 15:51 by Dixon Estrella DO) Sepsis due to pneumonia (Acute) Healthcare-associated pneumonia (Acute) Hyponatremia (Acute) Hyperglycemia due to type 2 diabetes mellitus (Acute) - Secondary Discharge Diagnosis Chronic Problems (Last Reviewed 11/15/18 @ 15:51 by Dixon Estrella DO) Chronic kidney disease with end stage renal failure on dialysis (Chronic) History of non-ST elevation myocardial infarction (NSTEMI) (Chronic) Nonrheumatic mitral (valve) insufficiency (Chronic) Secondary pulmonary arterial hypertension (Chronic) Aortocoronary bypass status (Chronic 06/25/14) CABG x3- KINCAID-LAD, SVG-CX, SVG-RCA 06/25/14 @ [facility] Chronic diastolic (congestive) heart failure (Chronic) 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) CABG x3- KINCAID-LAD, SVG-CX, SVG-RCA 06/25/14 @ [facility] AV fistula (Chronic) Morbid obesity (Chronic) Diabetes mellitus type 2 in obese (Chronic) End-stage renal disease on hemodialysis (Chronic) Hypertension (Chronic) HLD (hyperlipidemia) (Chronic) COPD (chronic obstructive pulmonary disease) (Chronic) CLAUDIO (obstructive sleep apnea) (Chronic) 17/11 cmH2O Hypokalemia (Chronic) Secondary hyperparathyroidism of renal origin (Chronic) Hospital Course and Treatment Summary of Care Provided: This patient was seen in conjunction with Alvin Rajput PA-C . I have independently interviewed and examined the patient and reviewed pertinent historical, laboratory, and other data. Please refer to Alvin Rajput PA-C note for details of this patient's presentation, findings, and recommendations. I have reviewed Alvin Rajput PA-C note and concur with documented findings. In brief, patient is a 58-year-old lady admitted with sepsis secondary to pneumonia patient has been admitted to monitored bed where she is currently being managed Assessment: 1. Sepsis secondary to pneumonia 2. End-stage renal disease 3. Diabetes mellitus type 2 4. Hypotension resolved at the time of discharge 5. Coronary artery disease 6. Obstructive sleep apnea 7. Obesity with BMI of 40.7 8. COPD 9. Hypertension BP meds on hold in view of relative hypotension Hospital course: As documented above by Alvin Rajput PA-C - Physical Exam Vital Signs Temp Pulse Resp BP Pulse Ox 98.5 F 65 14 122/58 H 100 11/19/18 09:40 11/19/18 12:04 11/19/18 09:40 11/19/18 12:04 11/19/18 10:57 Oxygen Flow Rate (L/min) 2 Oxygen Delivery Method Room Air Weight: 94.4 kg Body Mass Index (BMI) 39.3 Finger Stick Blood Glucose 275 Intake and Output for Last 24 Hours 11/17/18 11/18/18 11/19/18 23:59 23:59 23:59 Intake Total 693.5 / 693.5 1286.1 / 1466.1 596 / 596 Output Total 1000 / 1000 Balance 693.5 / 693.5 1286.1 / 1466.1 -404 / -404 Microbiology Past 72 Hours 11/15/18 13:41 Urine Culture - Final Urine, Catheterized Culture exhibits no growth. 11/15/18 12:40 Blood Culture - Preliminary Blood Culture (Wb) - Anticubital Right No growth in 48 hours. 11/15/18 15:10 Blood Culture - Preliminary Blood Culture (Wb) - Right Hand No growth in 48 hours. Laboratory Tests Past 24 Hrs 11/19/18 11/19/18 11/19/18 06:50 06:50 06:50 WBC 8.1 RBC 2.70 L Hgb 8.1 L Hct 25.4 L MCV 94.1 MCH 30.0 MCHC 31.9 L RDW Std Deviation 53.8 H RDW Coeff of Lauren 15.5 H Plt Count 248 MPV 11.1 Immature Gran % (Auto) 12.200 H Neut % (Auto) 62.0 Lymph % (Auto) 11.5 L [place] % (Auto) 13.2 H Eos % (Auto) 0.5 Baso % (Auto) 0.6 Absolute Neuts (auto) 5.0 Absolute Lymphs (auto) 0.93 Nucleated RBC % 1.4 Sodium 129 L Potassium 4.2 Chloride 91 L Carbon Dioxide 24.0 Anion Gap 14 BUN 74 H Creatinine 8.29 H* Estim Creat Clear Calc 5.25 Est GFR (MDRD) Af Amer 6 L Est GFR (MDRD) Non-Af 5 L BUN/Creatinine Ratio 8.9 L Glucose 271 H Calcium 8.3 L Random Vancomycin 18.5 H POC Glucose 11/19/18 11/18/18 11/18/18 06:43 21:50 17:02 POC Glucose 260 H 260 H 277 H Code Visit Inpatient E&M: [id number] Disch Hosp
--- NOTE | 2018-11-19 13:57 | NURSING ---
Patient weak and unable to walk all the way to door. Needed x2 assist to get back to bed
--- NOTE | 2018-11-19 14:06 | CASEMGMT ---
RN tried to walk patient to test her for O2. Patient was so weak she could not get to the door. Patient's mom walked in and said she cannot care for her and she needs to go to a skilled nursing. SW spoke with patient and she said she would go to [facility]. SW told them SW will work on the referral. DESTINEE called [facility] and left a message with referral. SW also faxed referral. Patient normally gets transported to dialysis through [facility]. This is paid for by [facility]. DESTINEE called [facility] and they gave SW the phone number to Mignon at [facility] that handles transportation. DESTINEE called Mignon and left her a voice mail requesting a return call. Await return call from [facility] and Mignon at [facility]. Ely ELIZONDO MSW
--- NOTE | 2018-11-19 15:03 | PN_ITS ---
Patient Problems: Active and Suspected Problems (Last Reviewed 11/15/18 @ 15:51 by Dixon Estrella DO) Sepsis due to pneumonia (Acute) Healthcare-associated pneumonia (Acute) Hyponatremia (Acute) Hyperglycemia due to type 2 diabetes mellitus (Acute) Subjective: Pt initially planning for DC home, however she is unable to walk, and her mother convinced her that she needs to go to a usp. She was weaned off O2, she has no SOB, no cough, no fevers or chills today. BP has improved. No dizziness or LH. No LE edema. - Physical Exam General: Alert, Oriented x3, Cooperative HEENT: Atraumatic, PERRLA, EOMI, Normocephalic Neck: Supple, No JVD, Negative Carotid Bruits Lungs: Clear to auscultation, Normal air movement Cardiovascular: Regular rate, No murmurs Abdomen: Bowel Sounds Present, Soft, Non Tender Extremities: No edema, Capillary Refill Less than 3 Seconds Skin: No rashes, No breakdown Musculoskeletal: No Tenderness to Palpation of Joints or Extremities Neurological: Cranial nerves II-XII grossly intact Psych/Mental Status: Normal Affect, Appropriate, Alert and oriented to time, place, person, mood and affect Vital Signs Temp Pulse Resp BP Pulse Ox 98.5 F 65 14 122/58 H 100 11/19/18 09:40 11/19/18 12:04 11/19/18 09:40 11/19/18 12:04 11/19/18 10:57 Oxygen Flow Rate (L/min) 2 Oxygen Delivery Method Room Air Weight: 208 lb 1.862 oz Body Mass Index (BMI) 39.3 Finger Stick Blood Glucose 275 Intake and Output for Last 24 Hours 11/17/18 11/18/18 11/19/18 23:59 23:59 23:59 Intake Total 693.5 / 693.5 1286.1 / 1466.1 596 / 596 Output Total 1000 / 1000 Balance 693.5 / 693.5 1286.1 / 1466.1 -404 / -404 Microbiology Past 72 Hours 11/15/18 13:41 Urine Culture - Final Urine, Catheterized Culture exhibits no growth. 11/15/18 12:40 Blood Culture - Preliminary Blood Culture (Wb) - Anticubital Right No growth in 48 hours. 11/15/18 15:10 Blood Culture - Preliminary Blood Culture (Wb) - Right Hand No growth in 48 hours. Laboratory Tests Past 24 Hrs 11/19/18 11/19/18 11/19/18 06:50 06:50 06:50 WBC 8.1 RBC 2.70 L Hgb 8.1 L Hct 25.4 L MCV 94.1 MCH 30.0 MCHC 31.9 L RDW Std Deviation 53.8 H RDW Coeff of Lauren 15.5 H Plt Count 248 MPV 11.1 Immature Gran % (Auto) 12.200 H Neut % (Auto) 62.0 Lymph % (Auto) 11.5 L [place] % (Auto) 13.2 H Eos % (Auto) 0.5 Baso % (Auto) 0.6 Absolute Neuts (auto) 5.0 Absolute Lymphs (auto) 0.93 Nucleated RBC % 1.4 Sodium 129 L Potassium 4.2 Chloride 91 L Carbon Dioxide 24.0 Anion Gap 14 BUN 74 H Creatinine 8.29 H* Estim Creat Clear Calc 5.25 Est GFR (MDRD) Af Amer 6 L Est GFR (MDRD) Non-Af 5 L BUN/Creatinine Ratio 8.9 L Glucose 271 H Calcium 8.3 L Random Vancomycin 18.5 H POC Glucose 11/19/18 11/18/18 11/18/18 06:43 21:50 17:02 POC Glucose 260 H 260 H 277 H Medical Necessity - Tobacco Use Smoking Status: Former smoker Assessment/Plan All Active Problems (Last Reviewed 11/15/18 @ 15:51 by Dixon Estrella DO) Sepsis due to pneumonia (Acute) Healthcare-associated pneumonia (Acute) Hyponatremia (Acute) Hyperglycemia due to type 2 diabetes mellitus (Acute) Postsurgical percutaneous transluminal coronary angioplasty (PTCA) status (Resolved 06/12/17) NSTEMI (non-ST elevated myocardial infarction) (Resolved) Abnormal stress test (Resolved) Acute respiratory failure with hypoxemia (Resolved) Acute respiratory failure with hypoxia (Resolved) Arteriovenous fistula stenosis (Resolved) COPD with acute exacerbation (Resolved) Non-ST elevation [place] (NSTEMI) (Resolved) 1. Acute sepsis 2/2 HCAP presumed gram negative- Vanc/Zosyn. Fever last night. Transition to PO augmentin for total of seven days at SD. Blood cultures negative. 2. ESRD - dialysis today 3. Hypotension - decreased coreg. Midodrine. 4. T2DM with morbid obesity - SSI, restart home lantus at lower dose. 5. CAD - on asa/statin/plavix/ranexa/coreg/imdur 6. HTN - as above 7. COPD - stable. PRN aerosols. 8. CLAUDIO - on CPAP DVT ppx: heparin DC planning: Accepted at [facility]. Needs transport arranged. This patient was seen by Alvin Rajput PA-C under the supervision of Dr. Lucia.
--- NOTE | 2018-11-19 15:18 | CASEMGMT ---
DESTINEE spoke with Mignon at [facility] and she said [facility] can continue to transport patient even while at SNF. She will contact [facility]. DESTINEE called Yeni at [facility] and she said they can take patient. DESTINEE told her that [facility] transports patient to dialysis and they can continue doing this while at their facility. Yeni offered to have [facility] pay for transport if [facility] has availability. DSETINEE called [facility] and spoke with Dixon. He said they could orange picker machine operator patient at 4p. They will bring a wheelchair. They asked that staff meet them at main entrance with patient. DESTINEE notified physician who completed orders. Orders faxed to [facility]. DESTINEE completed convalescent on HENS. DESTINEE notified RN, patient, Yeni at [facility], and office secretary know about orange picker machine operator. DESTINEE notified WORD PROCESSOR OPERATOR that they will need to meet [facility] at main entrance at 4p and transfer her to their wheelchair. DESTINEE called [facility] and thanked them for their assistance. Plan: d/c to [facility] under skilled level of care on a convalescent stay. [facility] transported patient via wheelchair van courtesy of [facility]. Ely ELIZONDO SUPERVISOR [employer]
--- NOTE | 2018-11-19 15:23 | TREXTCA.CO_ITS ---
- Diet 11/15/18 15:54 Diet: Renal: 60 gm protein Food consistency:: Regular Liquid Consistency:: Regular/Thin Is pt able to select menu?: Yes - Routine Orders/Code Status Suppository Type: Dulcolax 10mg Suppository Frequency: Daily PRN O2 Frequency: PRN Routine Lab Work: CBC - 5 days, BMP - tomorrow Code Status: Full Code - Therapies Physical Therapy: Eval and Treat Occupational Therapy: Eval and Treat - Problem/Diagnosis (1) Sepsis due to pneumonia Status: Acute Current Visit: Yes (2) Healthcare-associated pneumonia Status: Acute Current Visit: Yes (3) Chronic kidney disease with end stage renal failure on dialysis Status: Chronic Current Visit: Yes (4) Hyponatremia Status: Acute Current Visit: Yes (5) Hyperglycemia due to type 2 diabetes mellitus Status: Acute Current Visit: Yes (6) History of non-ST elevation myocardial infarction (NSTEMI) Status: Chronic Current Visit: No (7) Secondary pulmonary arterial hypertension Status: Chronic Current Visit: No (8) Postsurgical percutaneous transluminal coronary angioplasty (PTCA) status Status: Resolved Comment: PCI w/PTCA of the distal anastomotic site of the SVG to OM 06/12/17 Current Visit: No (9) Aortocoronary bypass status Status: Chronic Comment: CABG x3- KINCAID-LAD, SVG-CX, SVG-RCA 06/25/14 @ [facility] Current Visit: No (10) Chronic diastolic (congestive) heart failure Status: Chronic Current Visit: No - Allergies/Procedures Done in Hospital Allergies/Adverse Reactions: Allergies lisinopril Allergy (Verified 11/15/18 11:55) Unknown ranitidine HCl [From Zantac] Allergy (Verified 11/15/18 11:55) Hives azithromycin Adverse Reaction (Verified 11/15/18 11:55) Nausea/Vom/Diarrhea Procedures: None - Type of Care/Length of Stay Estimated LOS: Convalescent Care Less Than 30 days Type of Care Needed: Skilled Rehab Potential: Fair Prognosis: Fair - Additional Orders/Day of Discharge Day of Discharge: 11/19/18 - Dietary and Speech Recommendations Dietitian Recommendations/Changes: Suggest diet change to 1800 calorie; low sodium/potassium; 80 gm protein with 1500 ml fluid restriction. Will d/c PO Nepro with meals since intake improved at meals. - Follow Up Care Primary Care Physician: Brayden King Chi, MD [Primary Care Provider] - Please follow up with your Primary Care Physician in: 1-2 weeks Please Follow Up With: Elena Rollins DO When: As directed Please Follow Up With: Brayden King Chi, MD
[2018-11-20 07:23] LABS: Differential Indicated MANUAL DIFF
[2018-11-20 09:10] LABS: Basophil 1 % (0-1); Blast 1 % (0-0); Lymphocyte 9 % (19-41); Metamyelocyte 6 % (0-1); Myelocyte 7 (0-0); Neutrophil-Band 22 % (0-5); Neutrophil-Segmented 54 % (47-70); Nucleated Red Bld Cells,Manual 2 % (0-5); Total Cells Counted 100 (MANUAL DIFF)
[2018-11-20 09:15] LABS: Scan Smear per Review Criteria MANUAL DIFF
[2018-11-20 09:16] LABS: White Blood Count 8.2 K/mm3 (4.4-11.0)
[2018-11-20 09:18] LABS: Absolute Lymphocyte Count 0.74 X10^3/uL (0.83-4.51); Absolute Neutrophil Count 6.2 X10^3/uL (2.0-7.7); Lymphocyte # 0.74 X10^3/ul (4.0)
--- NOTE | 2018-11-20 10:13 | CASEMGMT ---
SW called patient's [employer] Operator, Elena and let her know patient went to [facility] yesterday. Ely ELIZONDO MSW
[2018-11-20 10:36] LABS: Platelet Estimate ADEQUATE (ADEQ)
[2018-11-20 10:37] LABS: Anisocytosis RARE; Bite Cell RARE; Crenated RBC RARE; Spherocyte RARE
[2018-11-22 13:37] LABS: Pathologist Review Reviewed
== END 2018-11-19 14:01 | disposition skilled nursing facility (03) | DRG 871 ==
LOC: ED 14:45 → PCU 16:46
PROVIDERS: Internal Medicine; Internal Medicine Nephrology; Physician Assistant; Emergency Provider Emergency Medicine; Family Provider Family Medicine Geriatric Medicine; PCP Family Medicine Geriatric Medicine; Visit Provider Internal Medicine
DX: A41.50 Gram-negative sepsis, unspecified (principal); J15.6 Pneumonia due to other Gram-negative bacteria; N18.6 End stage renal disease; G93.41 Metabolic encephalopathy; E87.1 Hypo-osmolality and hyponatremia; I50.32 Chronic diastolic (congestive) heart failure; I13.2 Hypertensive heart and chronic kidney disease with heart failure and with stage 5 chronic kidney disease, or end stage renal disease; N25.81 Secondary hyperparathyroidism of renal origin; J44.0 Chronic obstructive pulmonary disease with (acute) lower respiratory infection; Z99.2 Dependence on renal dialysis; Y95 Nosocomial condition; G47.33 Obstructive sleep apnea (adult) (pediatric); E11.65 Type 2 diabetes mellitus with hyperglycemia; I25.10 Atherosclerotic heart disease of native coronary artery without angina pectoris; I27.21 Secondary pulmonary arterial hypertension; E66.01 Morbid (severe) obesity due to excess calories; E11.22 Type 2 diabetes mellitus with diabetic chronic kidney disease; Z68.39 Body mass index [BMI] 39.0-39.9, adult; E78.5 Hyperlipidemia, unspecified; I34.0 Nonrheumatic mitral (valve) insufficiency; K21.9 Gastro-esophageal reflux disease without esophagitis; I95.9 Hypotension, unspecified; Z87.891 Personal history of nicotine dependence; I25.2 Old myocardial infarction; Z95.1 Presence of aortocoronary bypass graft; Z79.4 Long term (current) use of insulin; D64.9 Anemia, unspecified
CPT/HCPCS: 36415; 36600; 71045; 71046; 80048; 80053; 80202; 81001; 82803; 82962; 83036; 83605; 84100; 84484; 85025; 85610; 85730; 87040; 87086; 87633; 90937; 93005; 94667; 94668; 97162; 97166; 97802; 97803; 99251; 99285; J7030; J7040; J7050; A4216; G0257; G0463; J2405; Q5106

== ENCOUNTER → 2018-12-25 | Outpatient (CLI) | payer MEDICARE, MEDICAID, SELFPAY ==
[2018-08-16 13:29] VITALS: BMI 38.7
[2018-11-15 16:11] VITALS: BMI 39.3
[2018-12-25 17:09] LABS: Absolute Neutrophil Count 3.7 X10^3/uL (2.0-7.7); Basophil# 0.04 X10^3/uL; Basophil% 0.7 % (0-1); Eosinophils% 1.6 % (0-5); Hematocrit 32.2 % (37-47); Hemoglobin 9.8 g/dL (12.0-15.0); Lymphocyte % 26.3 % (19-41); Mean Corp Hgb Conc 30.4 g/dL (32-36); Mean Corpuscular Hgb 30.1 pg (27.0-32.0); Mean Corpuscular Volume 98.8 fL (81-99); Mean Platelet Vol. 9.4 fl (6.2-12.0); Monocyte# 0.61 X10^3/uL; NRBC Flagged by Analyzer 0 % (0-5); Neutrophil # 3.71 X10^3/uL (2.7-7.7); Neutrophil % 61.1 % (47-70); Platelet Count 501 K/mm3 (150-450); RBC Distribution Width CV 17.5 % (11.6-14.6); Red Blood Count 3.26 M/mm3 (4.2-5.4); White Blood Count 6.1 K/mm3 (4.4-11.0)
[2018-12-25 17:37] LABS: ALB/GLOB Ratio 0.7 RATIO (0.9-2.4); AST(SGOT) 13 U/L (15-37); Alanine Aminotransfer ALT/SGPT 22 U/L (13-56); Albumin, Serum 3.1 g/dL (3.2-5.0); Alkaline Phosphatase 72 U/L (45-117); Anion Gap 10 (5-15); BUN 50 mg/dL (7-18); BUN/Creat Ratio 9.8 RATIO (10-20); Calcium,Total 9.4 mg/dL (8.5-10.1); Chloride 97 mmol/L (98-107); Creatinine, Serum 5.12 mg/dL (0.55-1.02); EST Glomerular Filtration Rate 9 mL/min (>60); Est Glom Filt Rate - Afr Amer 11 mL/min (>60); Globulin 4.5 g/dL (2.2-4.2); Glucose 262 mg/dL (74-106); Potassium 5.1 mmol/L (3.5-5.1); Protein, Total 7.6 g/dL (6.4-8.2); Sodium Level 138 mmol/L (136-145); Thyroid Stim Hormone (TSH) 0.61 uIU/mL (0.358-3.74)
== END | disposition home or self-care (01) ==
LOC: POLAB3 14:52
PROVIDERS: Family Provider Family Medicine Geriatric Medicine; PCP Family Medicine Geriatric Medicine; Visit Provider Family Medicine Geriatric Medicine
DX: E11.9 Type 2 diabetes mellitus without complications (principal); E55.9 Vitamin D deficiency, unspecified; I10 Essential (primary) hypertension
CPT/HCPCS: 36415; 80053; 82306; 84443; 85025

== ENCOUNTER 2019-02-18 00:15 | Inpatient (IN) | payer MEDICARE, MEDICAID, SELFPAY ==
[2018-11-15 16:11] VITALS: BMI 39.3
[2019-02-18] VITALS (30 sets, daily range): BP systolic 104–178; BP diastolic 48–103; PULSE 57–75; RESP 10–24; TEMP 35.7–36.9; O2SAT 90–100; BMI 35.4; BMI 35.5; BMI 38.2
--- NOTE | 2019-02-18 00:23 | RAD_ITS ---
HISTORY: SOB and chest heaviness since sunday after dialysis. Hx of CHF. C/O coughing EXAMINATION/TECHNIQUE: XR Chest 1 View: Portable COMPARISON: 08/23/2017 FINDINGS: Cardiac telemetry monitors in place. The heart is upper normal in size. Bilateral perihilar and right basilar mild interstitial edema and/or interstitial infiltrates. No pulmonary consolidation. No significant pleural effusion. No pneumothorax. Previous median sternotomy. Atherosclerotic thoracic aorta. RAD/Chest 1 View (Portable) IMPRESSION: 1. History dialysis. Bilateral perihilar and right basilar interstitial edema and/or interstitial infiltrates. 2. Previous median sternotomy. at 0129 Reported and signed by: Sedrick Avendaño MD Electronically Signed: Sedrick Avendaño, at 1:28 EDT Tel , Service support ,
--- NOTE | 2019-02-18 00:23 | EKG12_ITS ---
Test Reason : CP Blood Pressure : / mmHG Vent. Rate : 069 BPM Atrial Rate : 069 BPM P-R Int : 168 ms QRS Dur : 090 ms QT Int : 428 ms P-R-T Axes : 061 -56 109 degrees QTc Int : 458 ms Normal sinus rhythm Possible Left atrial enlargement Left axis deviation ST & T wave abnormality, consider lateral ischemia Abnormal ECG Confirmed by OLINDA MUSTAFA ([id number]), supervising film or videotape editor MYRIAM PEREZ ([id number]) on 02/24/2019 8:59:56 AM Referred By: Laurel Posey Confirmed By:OLINDA MUSTAFA
--- NOTE | 2019-02-18 00:27 | ED.DCSUM_ITS ---
History of Present Illness Chief Complaint: Shortness of Breath Detail of Chief Complaint: Chest pain Informant: Patient Onset: Days - 3 days Current Severity: Mild Maximum Severity: Mild Narrative: Patient presents with chest pain is been ongoing for 3 days. She states initially pain would come on for just a few minutes and then resolved. She was taking nitro which seemed to, she thought, improve the pain. Tonight pain has been constant for the past 2-1/2 hours and was not improved with nitro. She does report some mild shortness of breath. She is a history of renal failure and is on dialysis Sunday, , Sunday. She also has a history of coronary disease. She had CABG and single PCI in the past. 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 Huang. Past Medical History - Allergies and Home Meds Allergies/Adverse Reactions: Allergies lisinopril Allergy (Verified 02/18/19 00:24) Unknown ranitidine HCl [From Zantac] Allergy (Verified 02/18/19 00:24) Hives azithromycin Adverse Reaction (Verified 02/18/19 00:24) Nausea/Vom/Diarrhea Primary Care Physician: Brayden King Chi, MD [Primary Care Provider] - Prior records reviewed: Yes Past Medical History: - - Reviewed Surgical History: angioplasty, cataract, coronary bypass surgery - x3v, hysterectomy, - - AVF placement, back surgery Lives: With Family Smoking Status: Former smoker - Family History Paternal Family History: Family History (Last Reviewed 11/15/18 @ 15:51 by Dixon Estrella DO) Father Heart disease Hypertension Prostate cancer Mother Hypertension Family History: Reports: Cancer - prostate, Heart Disease, Hypertension Sibling Family History: Family History (Last Reviewed 11/15/18 @ 15:51 by Dixon Estrella DO) Father Heart disease Hypertension Prostate cancer Mother Hypertension Family History: Reports: Diabetes Maternal Family History: Family History (Last Reviewed 11/15/18 @ 15:51 by Dixon Estrella DO) Father Heart disease Hypertension Prostate cancer Mother Hypertension Family History: Reports: Hypertension Review of Systems General: Denies: Chills, Fever Eyes: Denies: Visual changes - bilaterally ENT: Denies: Bilateral ear pain Cardiovascular: Reports: Chest pain Respiratory: Reports: Dyspnea. Denies: Cough Gastrointestinal: Denies: Abdominal pain, Nausea, Vomiting, Diarrhea Musculoskeletal: Denies: Neck pain, Back pain, Extremity Pain Skin: Denies: Rash Neurological: Denies: Headache Psych: Denies: Depression, Anxiety Physical Exam Vital Signs/Narrative: Vital Signs Temp Pulse Resp BP Pulse Ox 02/18/19 00:17 97.9 F 71 16 109/62 96 Inital Vital Signs reviewed: Yes General: Well nourished, Well developed Head: Normocephalic ENT: Moist mucous membranes Neck: Supple Cardiovascular: Regular rate, Regular rhythm Respiratory: No distress, CTA bilaterally Abdomen: Soft, Nontender Extremities: Nontender Skin: Normal color Neurological: Alert, Oriented x3 Psychological: Normal affect Diagnostic/Tx/Re-eval Impressions Chest X-Ray 02/18/19 00:23 IMPRESSION: 1. History dialysis. Bilateral perihilar and right basilar interstitial edema and/or interstitial infiltrates. 2. Previous median sternotomy. at 0129 Reported and signed by: Sedrick Avendaño MD Electronically Signed: Sedrick Avendaño, at 1:28 EDT Tel , Service support , 02/18/19 00:23 Chest 1 View (Portable) [RAD] Stat Laboratory Results 02/18/19 02/18/19 00:30 00:30 WBC 7.6 RBC 3.41 L Hgb 9.9 L Hct 31.7 L MCV 93.0 MCH 29.0 MCHC 31.2 L RDW Std Deviation 59.1 H RDW Coeff of Lauren 17.3 H Plt Count 215 MPV 10.5 Immature Gran % (Auto) 0.300 Neut % (Auto) 69.2 Lymph % (Auto) 18.5 L [place] % (Auto) 9.9 Eos % (Auto) 1.4 Baso % (Auto) 0.7 Absolute Neuts (auto) 5.3 Absolute Lymphs (auto) 1.41 Nucleated RBC % 0 Sodium 132 L Potassium 5.0 Chloride 94 L Carbon Dioxide 30.0 Anion Gap 8 BUN 59 H Creatinine 5.31 H Estim Creat Clear Calc 10.26 Est GFR (MDRD) Af Amer 11 L Est GFR (MDRD) Non-Af 9 L BUN/Creatinine Ratio 11.1 Glucose 380 H Calcium 9.6 Troponin I < 0.015 - EKG Initial EKG Interpretation: Sinus Rhythm - Sinus at [address] depression in V5 and V6. This is slightly more pronounced when compared to prior study November 16, 2017. - Medical Decision Making Patient was given 3 additional baby aspirin on arrival. She was placed on nasal cannula. She was not given IV fluids secondary to her chronic renal failure. On repeat evaluation she is resting comfortably. She states she does feel somewhat improved. I did review Dr. Huang's last note from July 2018 in the office. He outlines her prior cardiac caths with most recent being May 2017 at which time balloon angioplasty was performed. He states that if the patient is to get recurrent chest pain he has a low threshold for repeating a stress test. I will speak with hospitalist regarding admission for cycling of enzymes and then further determination about stress test imaging. Patient will require dialysis tomorrow. Her batch attendant is Dr. Rollins. ED Disposition - Plan for ED Patient: Disposition: Acute Care Hospital [facility] Diagnosis: Chest pain Referrals: Brayden King Chi, MD [Primary Care Provider] -
[2019-02-18 00:36] LABS: Absolute Lymphocyte Count 1.41 X10^3/uL (0.83-4.51); Absolute Neutrophil Count 5.3 X10^3/uL (2.0-7.7); Basophil# 0.05 X10^3/uL; Basophil% 0.7 % (0-1); Eosinophil# 0.11 X10^3/uL; Eosinophils% 1.4 % (0-5); Hematocrit 31.7 % (37-47); Hemoglobin 9.9 g/dL (12.0-15.0); Lymphocyte # 1.41 X10^3/ul (4.0); Lymphocyte % 18.5 % (19-41); Mean Corp Hgb Conc 31.2 g/dL (32-36); Mean Platelet Vol. 10.5 fl (6.2-12.0); Monocyte# 0.76 X10^3/uL; Monocyte% 9.9 % (0-10); NRBC Flagged by Analyzer 0 % (0-5); Neutrophil # 5.29 X10^3/uL (2.7-7.7); Neutrophil % 69.2 % (47-70); Platelet Count 215 K/mm3 (150-450); RBC Distribution Width CV 17.3 % (11.6-14.6); RBC Distribution Width SD 59.1 fl (35.1-43.9); Red Blood Count 3.41 M/mm3 (4.2-5.4); White Blood Count 7.6 K/mm3 (4.4-11.0)
[2019-02-18] MEDS: Aspirin 81 MG TAB.CHEW 243 MG PO (00:49)
[2019-02-18 01:00] LABS: Anion Gap 8 (5-15); BUN 59 mg/dL (7-18); BUN/Creat Ratio 11.1 RATIO (10-20); Calcium,Total 9.6 mg/dL (8.5-10.1); Chloride 94 mmol/L (98-107); Creatinine, Serum 5.31 mg/dL (0.55-1.02); EST Glomerular Filtration Rate 9 mL/min (>60); Est Glom Filt Rate - Afr Amer 11 mL/min (>60); Estimated Creatinine Clearance 10.26 ml/min; Glucose 380 mg/dL (74-106); Sodium Level 132 mmol/L (136-145)
--- NOTE | 2019-02-18 01:52 | PCM.HP.STD ---
Problem List (1) Chest pain Status: Acute Qualifiers: Chest pain type: unspecified Qualified Code(s): R07.9 - Chest pain, unspecified (2) Chronic kidney disease with end stage renal failure on dialysis Status: Chronic (3) History of non-ST elevation myocardial infarction (NSTEMI) Status: Chronic (4) Aortocoronary bypass status Status: Chronic Comment: CABG x3- KINCAID-LAD, SVG-CX, SVG-RCA 06/25/14 @ [facility] (5) Chronic diastolic (congestive) heart failure Status: Chronic (6) Hypertension Status: Chronic Qualifiers: Hypertension type: essential hypertension Qualified Code(s): I10 - Essential (primary) hypertension (7) HLD (hyperlipidemia) Status: Chronic Qualifiers: Hyperlipidemia type: unspecified Qualified Code(s): E78.5 - Hyperlipidemia, unspecified (8) COPD (chronic obstructive pulmonary disease) Status: Chronic Qualifiers: COPD type: COPD with acute exacerbation Qualified Code(s): J44.1 - Chronic obstructive pulmonary disease with (acute) exacerbation (9) CLAUDIO (obstructive sleep apnea) Status: Chronic Comment: 17/11 cmH2O History of Present Illness Date of Admission: 02/18/19 Chief Complaint: SOB, Chest heaviness The patient is a 58 y/o F w/ PMHx: Anxiety and Depression, Obesity, Chronic COPD, Diabetes mellitus type II, HTN, HLD, ESRD on HD TThSat, CAD s/p CABG x 3, Hx NSTEMI, CLAUDIO on BIPAP, GERD, Chronic Diastolic CHF, AOCD who presents to the [facility] ED on 02/18/19 with history of onset of midsternal/substernal chest pain described as pressure x 3 days, intermittent, worsened with activity with associated dyspnea, diaphoresis and nausea without emesis without radiation, noted 6-10/30 with occurrence, resolved with NG self administration; however, 02/17/19 10:30 pm, recurrent onset without improvement with NG administration. Patient does state that she has had recent dry cough but it is not severe and she has no associated dyspnea, congestion or recent upper respiratory infection. She denies any recent fevers or chills. She does have a chronically hoarse voice. Work-up in the ED included T 97.9, heart rate 71, BP 109/62, respiratory rate 16, 96% on room air, CBC with WBC 7.6, hemoglobin 9.9, platelet 215 without market shift, BMP with sodium 132, chloride 94, BUN/creatinine 59/5.31, glucose 380, troponin less than 0.015, chest x-ray with bilateral perihilar and right basilar interstitial edema and/or interstitial infiltrates, previous median sternotomy, EKG with sinus rhythm with mild ST depressions in V5 and V6 slightly more pronounced in comparison to October/2017. In the ED patient ministered aspirin therapy. Past Medical History Past Medical History (Chronic Problems): Chronic Problems (Last Reviewed 11/15/18 @ 15:51 by Dixon Estrella DO) Chronic kidney disease with end stage renal failure on dialysis (Chronic) History of non-ST elevation myocardial infarction (NSTEMI) (Chronic) Nonrheumatic mitral (valve) insufficiency (Chronic) Secondary pulmonary arterial hypertension (Chronic) Aortocoronary bypass status (Chronic 06/25/14) CABG x3- KINCAID-LAD, SVG-CX, SVG-RCA 06/25/14 @ [facility] Chronic diastolic (congestive) heart failure (Chronic) 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) CABG x3- KINCAID-LAD, SVG-CX, SVG-RCA 06/25/14 @ [facility] AV fistula (Chronic) Morbid obesity (Chronic) Diabetes mellitus type 2 in obese (Chronic) End-stage renal disease on hemodialysis (Chronic) Hypertension (Chronic) HLD (hyperlipidemia) (Chronic) COPD (chronic obstructive pulmonary disease) (Chronic) CLAUDIO (obstructive sleep apnea) (Chronic) 17/11 cmH2O Hypokalemia (Chronic) Secondary hyperparathyroidism of renal origin (Chronic) Medical History: Medical History (Last Reviewed 11/15/18 @ 15:51 by Dixon Estrella DO) History of non-ST elevation myocardial infarction (NSTEMI) (Chronic) I25.2 Nonrheumatic mitral (valve) insufficiency (Chronic) I34.0 Secondary pulmonary arterial hypertension (Chronic) I27.21 Chronic diastolic (congestive) heart failure (Chronic) I50.32 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) I25.728 CABG x3- KINCAID-LAD, SVG-CX, SVG-RCA 06/25/14 @ [facility] NSTEMI (non-ST elevated myocardial infarction) (Resolved) I21.4 AV fistula (Chronic) I77.0 Morbid obesity (Chronic) E66.01 Diabetes mellitus type 2 in obese (Chronic) E11.9, E66.9 End-stage renal disease on hemodialysis (Chronic) N18.6, Z99.2 Hypertension (Chronic) I10 HLD (hyperlipidemia) (Chronic) E78.5 COPD (chronic obstructive pulmonary disease) (Chronic) J44.9 CLAUDIO (obstructive sleep apnea) (Chronic) G47.33 17/11 cmH2O Hypokalemia (Chronic) E87.6 Secondary hyperparathyroidism of renal origin (Chronic) N25.81 Anemia in chronic renal disease N18.9, D63.1 DDD (degenerative disc disease) Diabetic retinopathy E11.319 GERD (gastroesophageal reflux disease) K21.9 Glaucoma H40.9 Abnormal stress test (Resolved) R94.39 Acute respiratory failure with hypoxemia (Resolved) J96.01 Acute respiratory failure with hypoxia (Resolved) J96.01 Arteriovenous fistula stenosis (Resolved) T82.858A COPD with acute exacerbation (Resolved) J44.1 History of hysterectomy Z90.710 Non-ST elevation IL (NSTEMI) (Resolved) I21.4 Cardiomegaly (Inactive) I51.7 Allergies lisinopril Allergy (Verified 02/18/19 00:24) Unknown ranitidine HCl [From Zantac] Allergy (Verified 02/18/19 00:24) Hives azithromycin Adverse Reaction (Verified 02/18/19 00:24) Nausea/Vom/Diarrhea Home Medications: Ambulatory Orders Medication Instructions Recorded Aspirin [Aspirin, Baby] 81 mg PO DAILY@0800 06/07/17 Atorvastatin Calcium [Lipitor] 80 mg PO QHS 06/07/17 Famotidine [Pepcid] 40 mg PO DAILY 06/07/17 Gabapentin [Neurontin] 300 mg PO QHS 06/07/17 Pyridoxine HCl (Vitamin B6) [B-6] 100 mg PO DAILY 06/07/17 Sennosides [Senna] 8.6 mg PO QHS PRN 06/07/17 ergocalciferol (vitamin D2) 50,000 50,000 unit PO QMONTH cap 08/01/17 unit capsule isosorbide mononitrate ER 60 mg 60 mg PO BID #180 tab 10/15/18 tablet,extended release 24 hr clopidogrel 75 mg tablet 75 mg PO DAILY #30 tab 04/04/18 ranolazine ER 500 mg 500 mg PO BID #180 tab 06/03/18 tablet,extended release,12 hr Citalopram Hydrobromide 20 mg PO DAILY 11/15/18 [Citalopram HBr] Folic Acid/Vitamin B Comp W-C 1 cap PO DAILY 11/15/18 [Nephrocaps, Renaphro] Timolol 0.5% [Timoptic] 1 drp RIGHT EYE BID 11/15/18 Albuterol Inhaler [Ventolin Hfa] 1 puff INHALATION Q6H PRN PRN #1 11/19/18 inhaler Carvedilol [Coreg] 12.5 mg PO BID #30 tab 11/19/18 Insulin Glargine,Hum.rec.anlog 20 unit SQ DAILY #0 11/19/18 [[place] Solostar] Surgical History: Surgical History (Last Reviewed 11/15/18 @ 15:51 by Dixon Estrella DO) Postsurgical percutaneous transluminal coronary angioplasty (PTCA) status (Resolved) Onset Date: 06/12/17 Z98.61 PCI w/PTCA of the distal anastomotic site of the SVG to OM 06/12/17 Aortocoronary bypass status (Chronic) Onset Date: 06/25/14 Z95.1 CABG x3- KINCAID-LAD, SVG-CX, SVG-RCA 06/25/14 @ [facility] AVF placement Onset Date: ~07/01/15 angioplasty of artriovenous fistula History of back surgery Z98.890 History of cataract surgery Z98.49 Surgical History: angioplasty, cataract, coronary bypass surgery - CABG x 3., hysterectomy, - - AVF placement, back surgery. Psychiatric History: Anxiety, Depression [employer] [place] [place] History: No pertinent [employer] [place] [place] history Lives: With Family Smoking Status: Former smoker Tobacco Use: Non-smoker Alcohol: None Drugs: None - *Family History Paternal Family History: Family History (Last Reviewed 11/15/18 @ 15:51 by Dixon Estrella DO) Father Heart disease Hypertension Prostate cancer Mother Hypertension History Items: Cancer - prostate, Heart Disease, Hypertension Sibling Family History: Family History (Last Reviewed 11/15/18 @ 15:51 by Dixon Estrella DO) Father Heart disease Hypertension Prostate cancer Mother Hypertension History Items: Diabetes Maternal Family History: Family History (Last Reviewed 11/15/18 @ 15:51 by Dixon Estrella DO) Father Heart disease Hypertension Prostate cancer Mother Hypertension History Items: Hypertension Review of Systems Constitutional: Reports: Fatigue. Denies: Chills, Fever, Malaise, Weakness, Weight Change HEENT: Denies: Head Aches, Sinus Congestion, Sinus Drainage Cardiovascular: Reports: Chest Pain, Chest Pressure. Denies: Chest Tightness, Edema, Heaviness, Light Headedness, Orthopnea, Palpitations, Syncope Respiratory: Reports: Cough, Shortness of Breath, Shortness of breath upon exertion. Denies: Shortness of breath at rest, Sputum production Gastrointestinal: Reports: Nausea. Denies: Abdominal Pain, Vomiting Genitourinary: Denies: Dysuria Musculoskeletal: Reports: Joint Pain. Denies: Joint Tenderness Skin: Denies: Rash, Wounds Neurological: Denies: Numbness, Tingling, Focal weakness Psychiatric: Reports: Anxiety, Depression. Denies: Homicidal Ideations, Suicidal Ideations Hematologic/ Lymphatic: Reports: Anemia, Easy Bruising, Easy Bleeding VTE Information - Inpt Only VTE Present on Admission: No VTE Mechan Device Prophylaxis: SCD's VTE Pharm Prophylaxis ordered?: Yes Patient Problems: Active and Suspected Problems (Last Reviewed 11/15/18 @ 15:51 by Dixon Estrella DO) Chest pain (Acute) Subjective: Seated upright in the ED, no acute distress, notes currently chest pain is resolved. Objective: Physical Examination: General: awake, alert, oriented x 3 and cooperative, seated upright in the ED bed, fatigued appearance, no current chest discomfort. Skin: normal color, turgor, no icterus, cyanosis. HEENT: AT/NC, EOMI, PERRLA, dry MM, no carotid bruits or JVD noted. Lungs: CTA bilaterally, moderate effort, moderate decrease BL bases, no rales, ronchi or wheezing. Heart: Regular rate and rhythm; no gallop, rub audible. Abdomen: soft, obese, NTTP, ND, normal BS, no HSM. Extremities: no cyanosis, clubbing, or edema, left upper extremity AVF + thrill. Neurological: patient awake, alert, oriented x 3; cognitive function intact; pupils equally reactive to light and accomodation; cranial nerves II-XII grossly normal, moving all 4 extremities, no focal deficits, strength mildly moderately global decrease secondary to acute presentation. Psychiatric: affect appears fatigued, no acute evidence of depressive or anxiety feelings. - Physical Exam Vitals/I&O's: Vital Signs Temp Pulse Resp BP Pulse Ox 97.9 F 71 16 109/62 97 02/18/19 00:17 02/18/19 00:17 02/18/19 00:17 02/18/19 00:17 02/18/19 00:50 Oxygen Flow Rate (L/min) 2 Oxygen Delivery Method Nasal Cannula Weight: 213 lb 2.992 oz Body Mass Index (BMI) 35.4 Finger Stick Blood Glucose 275 Laboratory Results 02/18/19 00:30: WBC 7.6, RBC 3.41 L, Hgb 9.9 L, Hct 31.7 L, MCV 93.0, MCH 29.0, MCHC 31.2 L, RDW Std Deviation 59.1 H, RDW Coeff of Lauren 17.3 H, Plt Count 215, MPV 10.5, Immature Gran % (Auto) 0.300, Neut % (Auto) 69.2, Lymph % (Auto) 18.5 L, [place] % (Auto) 9.9, Eos % (Auto) 1.4, Baso % (Auto) 0.7, Absolute Neuts (auto) 5.3, Absolute Lymphs (auto) 1.41, Nucleated RBC % 0 02/18/19 00:30: Sodium 132 L, Potassium 5.0, Chloride 94 L, Carbon Dioxide 30.0, Anion Gap 8, BUN 59 H, Creatinine 5.31 H, Estim Creat Clear Calc 10.26, Est GFR (MDRD) Af Amer 11 L, Est GFR (MDRD) Non-Af 9 L, BUN/Creatinine Ratio 11.1, Glucose 380 H, Calcium 9.6, Troponin I < 0.015 Assessment/Plan All Active Problems (Last Reviewed 11/15/18 @ 15:51 by Dixon Estrella DO) Sepsis due to pneumonia (Acute) Healthcare-associated pneumonia (Acute) Hyponatremia (Acute) Hyperglycemia due to type 2 diabetes mellitus (Acute) Chest pain (Acute) Postsurgical percutaneous transluminal coronary angioplasty (PTCA) status (Resolved 06/12/17) NSTEMI (non-ST elevated myocardial infarction) (Resolved) Abnormal stress test (Resolved) Acute respiratory failure with hypoxemia (Resolved) Acute respiratory failure with hypoxia (Resolved) Arteriovenous fistula stenosis (Resolved) COPD with acute exacerbation (Resolved) Non-ST elevation IL (NSTEMI) (Resolved) The patient is a 58 y/o F w/ PMHx: Anxiety and Depression, Obesity, Chronic COPD, Diabetes mellitus type II, HTN, HLD, ESRD on HD TThSat, CAD s/p CABG x 3, Hx NSTEMI, CLAUDIO on BIPAP, GERD, Chronic Diastolic CHF, AOCD who presents to the [facility] ED on 02/18/19 with history of onset of midsternal/substernal chest pain described as pressure x 3 days, intermittent, worsened with activity with associated dyspnea, diaphoresis and nausea without emesis without radiation, noted 6-10/30 with occurrence, resolved with NG self administration; however, 02/17/19 10:30 pm, recurrent onset without improvement with NG administration. (1) Chest Pain: Work-up in the ED included T 97.9, heart rate 71, BP 109/62, respiratory rate 16, 96% on room air, CBC with WBC 7.6, hemoglobin 9.9, platelet 215 without market shift, BMP with sodium 132, chloride 94, BUN/creatinine 59/5.31, glucose 380, troponin less than 0.015, chest x-ray with bilateral perihilar and right basilar interstitial edema and/or interstitial infiltrates are read but not severe appearing, previous median sternotomy, EKG with sinus rhythm with mild ST depressions in V5 and V6 slightly more pronounced in comparison to October/2017. Will admit to PCU, place on a monitored bed to assure no acute myocardial infarction with serial cardiac enzymes and EKGs. Patient is unable to perform exercise thus will proceed with AM nuclear stress testing. If further concern about pulmonary process may obtain repeat CXR after HD session. ASA, NG, morphine. (2) CAD: s/p CABG, 06/25/14 KINCAID to the LAD, and SVG to the circumflex, and SVG to the RCA with balloon angioplasty 05/2017, maintain on asa, plavix, BB, statin, Ranexa regimen. (3) Chronic COPD: ATC duonebs, PRN albuterol, HOB, IS parameters. (4) Diastolic CHF: We will continue home aspirin, Coreg, statin, Ranexa therapy, maintained on dialysis Sunday, , Sunday. (5) Hypertension: Continue home regimen including Coreg, isosorbide, PRN hydralazine. (6) Hyperlipidemia: Continue home statin regimen. AM FLP. (7) ESRD: HD T, , Sat, will consult Dr. Rollins, continue HD regimen per usual home regimen. (8) Anxiety and depression: We will continue home citalopram regimen. (9) Diabetes mellitus type II: Hold oral home regimen, continue home insulin regimen, ADA diet, accu checks w/ ISS. (10) Obesity: Weight loss and lifestyle changes encouraged, nutrition consulted. (11) CLAUDIO: BIPAP q HS. (12) DVT prophylaxis: SCDs, heparin. (13) CODE status: Patient does not have healthcare power of associate attorney but states she does have a living will. Discussed CODE status at length including difference between FULL code, DNR-CCA and DNR-CC status. Following discussions about the differences in these status, requested Full Code status despite patient co-morbidities. Advanced Care Planning Face to Face Time: 16 minutes. Code Visit OBSV E&M: 99602 Initial observation care L3 Procedures: 17791 Advncd Care Plan 30 Min
--- NOTE | 2019-02-18 02:42 | EKG12_ITS ---
Test Reason : CP ADMISSION Blood Pressure : / mmHG Vent. Rate : 067 BPM Atrial Rate : 067 BPM P-R Int : 158 ms QRS Dur : 092 ms QT Int : 440 ms P-R-T Axes : 076 -46 099 degrees QTc Int : 464 ms Normal sinus rhythm Possible Left atrial enlargement Left axis deviation Nonspecific ST & T wave abnormality, consider lateral ischemia Prolonged QT Poor R Wave Progression Abnormal ECG Confirmed by KELVIN ZARAGOZA, JOCELYNE ([id number]), editor in chief MADDY STERLING ([id number] on 02/24/2019 1:12:02 PM Referred By: Laurel Posey Confirmed By:JOCELYNE WARREN MD
[2019-02-18 04:40] LABS: Magnesium 2.2 mg/dL (1.6-2.6)
[2019-02-18 06:11] LABS: Bedside Glucose 317 mg/dL (70-110)
[2019-02-18 06:13] LABS: Absolute Lymphocyte Count 1.29 X10^3/uL (0.83-4.51); Absolute Neutrophil Count 4.7 X10^3/uL (2.0-7.7); Basophil# 0.03 X10^3/uL; Basophil% 0.4 % (0-1); Eosinophil# 0.12 X10^3/uL; Eosinophils% 1.8 % (0-5); Hematocrit 29.5 % (37-47); Hemoglobin 9.2 g/dL (12.0-15.0); Lymphocyte # 1.29 X10^3/ul (4.0); Lymphocyte % 18.9 % (19-41); Mean Corp Hgb Conc 31.2 g/dL (32-36); Mean Corpuscular Hgb 29.3 pg (27.0-32.0); Mean Corpuscular Volume 93.9 fL (81-99); Mean Platelet Vol. 10.2 fl (6.2-12.0); Monocyte# 0.72 X10^3/uL; Monocyte% 10.5 % (0-10); NRBC Flagged by Analyzer 0 % (0-5); Neutrophil # 4.66 X10^3/uL (2.7-7.7); Neutrophil % 68.1 % (47-70); Platelet Count 217 K/mm3 (150-450); RBC Distribution Width CV 17.4 % (11.6-14.6); RBC Distribution Width SD 60.5 fl (35.1-43.9); Red Blood Count 3.14 M/mm3 (4.2-5.4); White Blood Count 6.8 K/mm3 (4.4-11.0)
[2019-02-18 06:46] LABS: International Normalized Ratio 1.2; Prothrombin Time (Protime)PT. 14.6 SECONDS (11.7-14.9)
[2019-02-18 06:47] LABS: Partial Thromboplast Time 33.3 Seconds (24.1-36.2)
[2019-02-18 06:49] LABS: Anion Gap 8 (5-15); BUN 62 mg/dL (7-18); BUN/Creat Ratio 11.1 RATIO (10-20); Calcium,Total 9.1 mg/dL (8.5-10.1); Chloride 96 mmol/L (98-107); Cholesterol 119 mg/dL (200); Creatinine, Serum 5.59 mg/dL (0.55-1.02); EST Glomerular Filtration Rate 8 mL/min (>60); Est Glom Filt Rate - Afr Amer 10 mL/min (>60); Estimated Creatinine Clearance 8.18 ml/min; Glucose 316 mg/dL (74-106); High Density Lipoprotein 61 mg/dL; Potassium 5.2 mmol/L (3.5-5.1); Sodium Level 132 mmol/L (136-145); Triglycerides 87 mg/dL; Very Low Density Lipoprotein 17 mg/dL (5-40)
[2019-02-18] MEDS: Ipratropium/Albuterol Sulfate 3 ML AMPUL.NEB INHALATION ×2 (07:20→17:19)
--- NOTE | 2019-02-18 07:23 | CON.PCM_ITS ---
Reason for Consult Date of Consultation: 02/18/19 Reason for Consultation: Chest pain History of Present Illness: The patient is a 58 year old female that presents here with chest discomfort described as substernal heaviness for which she took 2 sublingual nitroglycerin with improvement and then it recurred. She therefore presented to the emergency room was evaluated and was admitted. Cardiac enzymes were obtained and were noted to be abnormal cardiology consultation was sought. She has a history of coronary artery disease with bypass surgery in 2014. In 06/2014 pt initially underwent a dobutamine echocardiogram which was abnormal for inducible ischemia in the anterolateral rogers. She underwent diagnostic coronary angiogram was found to have probably significant left main and LAD disease. She was then transferred to [facility] where she underwent IVUS evaluation of her left main and LAD., was found to have significant left main and LAD disease. The patient underwent successful multivessel bypass surgery on 06/25/14. She received a KINCAID to the LAD, and SVG to the circumflex, and SVG to the RCA. . She also has a history of Hypertension, diastolic congestive heart failure, renal insufficiency, hyperlipidemia and diabetes. Patient was recently admitted for end-stage renal disease requiring dialysis. At that time she had anginal symptoms while undergoing dialysis, and a repeat her catheterization on 02/09/16. At that time we found severe two- vessel coronary disease, nonobstructive disease of her RCA, nonobstructive disease of the OM #1, a widely patent SVG to OM #2, and a widely patent KINCAID to the LAD. Her LV function was hyperdynamic with moderate to severe elevation in LVEDP. In addition she was found to be profoundly anemic requiring several units of PRBCs. The patient was admitted with non-ST elevation myocardial infarction in 2016 placed on a heparin drip and underwent diagnostic coronary angiogram which showed double vessel coronary disease widely patent KINCAID to the LAD, moderate LV dysfunction. No additional therapy was performed. We resumed her Imdur increased her Norvasc, and would consider high-risk angioplasty of the touchdown site of the saphenous vein graft to the OM if her symptoms continued. Patient returned with unstable angina to [facility] in May 2017. I performed a repeat left heart catheterization with balloon angioplasty only with a maximum of a 2.0 mm balloon at the anastomotic site of the saphenous vein graft to the obtuse marginal. No stenting was performed out of concern for compromising retrograde flow down the diomede left circumflex. She also was found to have a significant diagonal lesion which would require correction of the left main disease and thereby jeopardize flow down the KINCAID. No additional stenting of the left main and LAD were performed. During this visit she was noted to have an abnormal cardiac enzyme elevation but has not had any further chest pain. Past Medical History Allergies/Adverse Reactions: Allergies lisinopril Allergy (Verified 02/18/19 00:24) Unknown ranitidine HCl [From Zantac] Allergy (Verified 02/18/19 00:24) Hives azithromycin Adverse Reaction (Verified 02/18/19 00:24) Nausea/Vom/Diarrhea Home Medications: Ambulatory Orders Medication Instructions Recorded Aspirin [Aspirin, Baby] 81 mg PO DAILY@0800 06/07/17 Atorvastatin Calcium [Lipitor] 80 mg PO QHS 06/07/17 Famotidine [Pepcid] 40 mg PO DAILY 06/07/17 Gabapentin [Neurontin] 300 mg PO QHS 06/07/17 Pyridoxine HCl (Vitamin B6) [B-6] 100 mg PO DAILY 06/07/17 Sennosides [Senna] 8.6 mg PO QHS PRN 06/07/17 ergocalciferol (vitamin D2) 50,000 50,000 unit PO QMONTH cap 08/01/17 unit capsule isosorbide mononitrate ER 60 mg 60 mg PO BID #180 tab 02/04/18 tablet,extended release 24 hr clopidogrel 75 mg tablet 75 mg PO DAILY #30 tab 04/04/18 ranolazine ER 500 mg 500 mg PO BID #180 tab 06/03/18 tablet,extended release,12 hr Citalopram Hydrobromide 20 mg PO DAILY 11/15/18 [Citalopram HBr] Folic Acid/Vitamin B Comp W-C 1 cap PO DAILY 11/15/18 [Nephrocaps, Renaphro] Timolol 0.5% [Timoptic] 1 drp RIGHT EYE BID 11/15/18 Albuterol Inhaler [Ventolin Hfa] 1 puff INHALATION Q6H PRN PRN #1 11/19/18 inhaler Carvedilol [Coreg] 12.5 mg PO BID #30 tab 11/19/18 Insulin Glargine,Hum.rec.anlog 20 unit SQ DAILY #0 11/19/18 [Reubenceceez Kiranabigail] Past Medical History (Chronic Problems): Chronic Problems (Last Reviewed 11/15/18 @ 15:51 by Dixon Estrella DO) Chronic kidney disease with end stage renal failure on dialysis (Chronic) History of non-ST elevation myocardial infarction (NSTEMI) (Chronic) Nonrheumatic mitral (valve) insufficiency (Chronic) Secondary pulmonary arterial hypertension (Chronic) Aortocoronary bypass status (Chronic 06/25/14) CABG x3- KINCAID-LAD, SVG-CX, SVG-RCA 06/25/14 @ [facility] Chronic diastolic (congestive) heart failure (Chronic) 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) CABG x3- KINCAID-LAD, SVG-CX, SVG-RCA 06/25/14 @ [facility] AV fistula (Chronic) Morbid obesity (Chronic) Diabetes mellitus type 2 in obese (Chronic) End-stage renal disease on hemodialysis (Chronic) Hypertension (Chronic) HLD (hyperlipidemia) (Chronic) COPD (chronic obstructive pulmonary disease) (Chronic) CLAUDIO (obstructive sleep apnea) (Chronic) 17/11 cmH2O Hypokalemia (Chronic) Secondary hyperparathyroidism of renal origin (Chronic) Surgical History: angioplasty, cataract, coronary bypass surgery - CABG x 3., hysterectomy, - - AVF placement, back surgery. 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: No pertinent OBJECTIVE C DEVELOPER history - *Family History Paternal Family History: Family History (Last Reviewed 11/15/18 @ 15:51 by Dixon Estrella DO) Father Heart disease Hypertension Prostate cancer Mother Hypertension History Items: Cancer - prostate, Heart Disease, Hypertension Sibling Family History: Family History (Last Reviewed 11/15/18 @ 15:51 by Dixon Estrella DO) Father Heart disease Hypertension Prostate cancer Mother Hypertension History Items: Diabetes Maternal Family History: Family History (Last Reviewed 11/15/18 @ 15:51 by Dixon Estrella DO) Father Heart disease Hypertension Prostate cancer Mother Hypertension History Items: Hypertension Lives: With Family Smoking Status: Former smoker Tobacco Use: Non-smoker Alcohol: None Drugs: None Review of Systems - Review of Systems General: Denies: Fever, Night Sweats, Fatigue HEENT: Denies: Vision Change Cardiovascular: Denies: Chest Discomfort, Shortness of Breath, Orthopnea, PND, Peripheral Edema, Palpitations, Lightheadedness, Dizziness, Near Syncope, Syncope Respiratory: Denies: Cough, Sputum Production, Hemoptysis Gastrointestinal: Denies: Hematemesis, Hematochezia, Melena Genitourinary: Denies: Dysuria, Hematuria Muscoloskeletal: Denies: Myalgias Skin: Denies: Rash Neurological: Denies: Dizziness Psychiatric: Denies: Anxiety Endocrine: Denies: Heat Intolerance Subjectve: 1.NSTEMI Objective: Vital Signs Temp Pulse Resp BP Pulse Ox 98.2 F 67 18 104/58 L 95 02/18/19 02:40 02/18/19 03:46 02/18/19 03:33 02/18/19 02:40 02/18/19 03:33 Oxygen Flow Rate (L/min) 2 Oxygen Delivery Method Nasal Cannula Weight: 202 lb 2.622 oz Body Mass Index (BMI) 38.2 Finger Stick Blood Glucose 275 Intake and Output for Last 24 Hours 02/16/19 02/17/19 02/18/19 23:59 23:59 23:59 Intake Total 0 / 0 Balance 0 / 0 General: Awake, Alert, Oriented x 3 HEENT: PERRL, EOMI, Sclera Non Icteric Neck: Supple, Good ROM, No Lymph Node Enlargement Lungs: Clear to auscultation Cardiovascular: Regular Rhythm, Normal S1, Normal S2, No Murmurs, No Rubs, No Gallops Vascular: No Carotid Bruits, Normal Femoral Pulses, Normal Radial Pulses, Normal Dorsalis Pedal Pulse, Normal Posterior Tibial Pulses Abdomen: Bowel Sounds Present, Soft, Non Tender, No HSM, No Organomegaly Extremities: No Cyanosis, No Clubbing, No edema Musculoskeletal: No Erythema Skin: No Rashes Lymphatic: No Lymph Node Enlargement Neurological: No Focal Motor or Sensory Deficit 02/18/19 00:30: WBC 7.6, RBC 3.41 L, Hgb 9.9 L, Hct 31.7 L, MCV 93.0, MCH 29.0, MCHC 31.2 L, Plt Count 215, MPV 10.5, Immature Gran % (Auto) 0.300, Neut % (Auto) 69.2, Lymph % (Auto) 18.5 L, Snyder % (Auto) 9.9, Eos % (Auto) 1.4, Baso % (Auto) 0.7, Absolute Neuts (auto) 5.3, Nucleated RBC % 0 02/18/19 00:30: Sodium 132 L, Potassium 5.0, Chloride 94 L, Carbon Dioxide 30.0, Anion Gap 8, BUN 59 H, Creatinine 5.31 H, Est GFR (MDRD) Af Amer 11 L, Est GFR (MDRD) Non-Af 9 L, BUN/Creatinine Ratio 11.1, Glucose 380 H, Calcium 9.6, Troponin I < 0.015 02/18/19 00:30: Magnesium 2.2 02/18/19 03:48: Troponin I 0.575 H 02/18/19 06:02: WBC 6.8, RBC 3.14 L, Hgb 9.2 L, Hct 29.5 L, MCV 93.9, MCH 29.3, MCHC 31.2 L, Plt Count 217, MPV 10.2, Immature Gran % (Auto) 0.300, Neut % (Auto) 68.1, Lymph % (Auto) 18.9 L, Snyder % (Auto) 10.5 H, Eos % (Auto) 1.8, Baso % (Auto) 0.4, Absolute Neuts (auto) 4.7, Nucleated RBC % 0 02/18/19 06:02: Sodium 132 L, Potassium 5.2 H, Chloride 96 L, Carbon Dioxide 28.0, Anion Gap 8, BUN 62 H, Creatinine 5.59 H, Est GFR (MDRD) Af Amer 10 L, Est GFR (MDRD) Non-Af 8 L, BUN/Creatinine Ratio 11.1, Glucose 316 H, Calcium 9.1, Troponin I 1.890 H*, Triglycerides 87, Cholesterol 119, LDL Cholesterol 41, VLDL Cholesterol 17, HDL Cholesterol 61 02/18/19 06:02: PT 14.6, INR 1.2, APTT 33.3 Rhythm: EKG: ECHO: Stress Test: Cardiac Cath: PCI: CT Surgery: Holter monitor: EPS: PPM: CXR: Chest CT Scan: Assessment/Plan 1. Non-ST elevation myocardial infarction * Patient presents with chest discomfort and is noted to have a non-ST elevation myocardial infarction without any acute EKG changes. * Will discuss with his primary damage assessor as to the modality of treatment but would likely involve a cardiac catheterization. Risk benefits alternatives have been explained to the patient she understands and agrees to proceed. * 2. Hypertension * Pressure appears to be under good control on the current medical therapy no major changes will be made. * 3. Risk factor modification * Patient to continue aggressive risk factor modification. Most recent lipid profile was noted to be fairly decent. * * Thank you for allowing me to participate in the care of your patient. Please don't hesitate to call if any issues arise
[2019-02-18] MEDS: HEPARIN/D5w 25,000 UNITS 25,000 UNITS/250 ML IV.SOLN. 14 UNITS IV (07:25)
[2019-02-18] MEDS: Heparin Injection (Vial) 5,000 UNIT/ML VIAL 1400 UNIT IV (07:26)
[2019-02-18] MEDS: Ranolazine 500 MG Tablet PO ×2 (08:28→21:27)
[2019-02-18] MEDS: Aspirin 81 MG TAB.CHEW PO (08:28)
[2019-02-18] MEDS: Carvedilol 12.5 MG Tablet PO ×2 (08:28→21:26)
[2019-02-18] MEDS: Isosorbide Mononitrate 60 MG Tablet PO ×2 (08:28→21:26)
[2019-02-18] MEDS: Insulin Lispro 100 UNIT/ML INSULN.PEN SC ×2 (08:29→21:28)
[2019-02-18] MEDS: Clopidogrel Bisulfate 75 MG Tablet PO (08:30)
--- NOTE | 2019-02-18 08:38 | PCM.CONS.R ---
Consultation - Renal 02/18/19 PCP/ Referring MD: Requesting physician: [] Primary care physician: Brayden King MD Reason for Consultation:: ESRD HD THS - History of Present Illness History of Present Illness: The patient is a 58 year old F wtih ESRD due to diabetes on HD THS admitted for chest pain that increased in frequency and intensity. CP described as heaviness associated with SOB, diaphoresis. Pain onset at rest or exertion. Relieved with rest and nitro. Has been cleaning the house past several days. She is due for dialysis today. Will arrange dialysis after heart cath today. PMH for CAD s/p PCI, CABG, DM2, HTN. - Allergies Allergies: Allergies lisinopril Allergy (Verified 02/18/19 00:24) Unknown ranitidine HCl [From Zantac] Allergy (Verified 02/18/19 00:24) Hives azithromycin Adverse Reaction (Verified 02/18/19 00:24) Nausea/Vom/Diarrhea - Current Medications Current Medications: Current Medications Acetaminophen (Tylenol) 650 mg PO Q6H PRN PRN PRN Reason: Non-cardiac pain Hydrocodone Bitart/Acetaminophen (Burton 5mg-325mg) 1 - 2 tablet PO Q6H PRN PRN PRN Reason: Pain Score 4-10/10 Al Hydroxide/Mg Hydroxide (Mylanta Ii) 15 - 30 ml PO Q4H PRN PRN PRN Reason: INDIGESTION Albuterol Sulfate (Ventolin Aerosols) 2.5 mg INHALATION Q2H PRN PRN PRN Reason: dyspnea, wheezing Albuterol/Ipratropium (Duoneb) 3 ml INHALATION Q6HWA.RT [facility] Last Admin: 02/18/19 07:20 Dose: 3 ml Documented by: Aspirin (Aspirin, Baby) 81 mg PO DAILY@0800 [facility] Last Admin: 02/18/19 08:28 Dose: 81 mg Documented by: Atorvastatin Calcium (Lipitor) 80 mg PO QHS [facility] Carvedilol (Coreg) 12.5 mg PO BID [facility] Last Admin: 02/18/19 08:28 Dose: 12.5 mg Documented by: Citalopram Hydrobromide (Celexa) 20 mg PO DAILY [facility] Clopidogrel Bisulfate (Plavix) 75 mg PO DAILY [facility] Last Admin: 02/18/19 08:30 Dose: 75 mg Documented by: Dextrose (D50w Syringe) 0 gm IV X1 PRN; Protocol PRN Reason: Hypoglycemia Famotidine (Pepcid) 40 mg PO DAILY [facility] Gabapentin (Neurontin) 300 mg PO QHS [facility] Glucagon () 1 mg IM .X1 PRN PRN Reason: Hypoglycemia Heparin Sodium (Porcine) (Heparin Na) 5,000 unit SC Q12 [facility] Heparin Sodium (Porcine) (Heparin Na) 0 unit IV UD PRN; Protocol Hydralazine HCl (Apresoline Iv) 10 mg IV Q4H PRN PRN PRN Reason: SBP > 160 Sodium Chloride () 250 mls @ 15 mls/hr IV .[id number] PRN PRN Reason: Saline Flush Heparin Sodium/Dextrose () 25,000 units in 250 mls @ 14 mls/hr IV .[id number] [facility]; Protocol Last Admin: 02/18/19 07:25 Dose: 1,400 units/hr, 14 mls/hr Documented by: Sodium Chloride () 1,000 mls @ 0 mls/hr IV .Q0M [facility] Insulin Glargine (Lantus (Bkc)) 20 units SC DAILY [facility] Insulin Human Lispro (Humalog Kwikpen (Bkc)) 0 unit SC ACHS [facility]; Protocol Last Admin: 02/18/19 08:29 Dose: 5 u Documented by: Isosorbide Mononitrate (Imdur) 60 mg PO BID [facility] Last Admin: 02/18/19 08:28 Dose: 60 mg Documented by: Magnesium Hydroxide (Milk Of Magnesia) 30 ml PO DAILY PRN PRN PRN Reason: Constipation Morphine Sulfate () 1 - 2 mg IV Q4H PRN PRN PRN Reason: Pain Score 1-10/10 Multivit/Ca Carb/B Cmplx/FA/Prenat (Nephrocaps, Renaphro) 1 capsule PO DAILY [facility] Nitroglycerin (Nitrostat) 0.4 mg SUBLINGUAL Q5M PRN PRN Reason: CARDIAC/CHEST PAIN Ondansetron HCl (Zofran) 4 mg IV Q8H PRN PRN PRN Reason: NAUSEA/VOMITING Ranolazine (Ranexa) 500 mg PO BID [facility] Last Admin: 02/18/19 08:28 Dose: 500 mg Documented by: Senna (Senokot) 1 tablet PO QHS PRN PRN PRN Reason: Constipation Sodium Chloride () 10 - 40 ml IV UD PRN PRN Reason: SALINE FLUSH Timolol Maleate (Timoptic) 1 drop RIGHT EYE BID COLEMAN - Past Medical History Past Medical History (Chronic Problems): Chronic Problems (Last Reviewed 11/15/18 @ 15:51 by Dixon Estrella DO) Chronic kidney disease with end stage renal failure on dialysis (Chronic) History of non-ST elevation myocardial infarction (NSTEMI) (Chronic) Nonrheumatic mitral (valve) insufficiency (Chronic) Secondary pulmonary arterial hypertension (Chronic) Aortocoronary bypass status (Chronic 06/25/14) CABG x3- KINCAID-LAD, SVG-CX, SVG-RCA 06/25/14 @ [facility] Chronic diastolic (congestive) heart failure (Chronic) 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) CABG x3- KINCAID-LAD, SVG-CX, SVG-RCA 06/25/14 @ [facility] AV fistula (Chronic) Morbid obesity (Chronic) Diabetes mellitus type 2 in obese (Chronic) End-stage renal disease on hemodialysis (Chronic) Hypertension (Chronic) HLD (hyperlipidemia) (Chronic) COPD (chronic obstructive pulmonary disease) (Chronic) CLAUDIO (obstructive sleep apnea) (Chronic) 17/11 cmH2O Hypokalemia (Chronic) Secondary hyperparathyroidism of renal origin (Chronic) - Past Surgical History Surgical History: angioplasty, cataract, coronary bypass surgery - CABG x 3., hysterectomy, - - AVF placement, back surgery. - Social History Smoking Status: Former smoker Alcohol: None Drugs: None - Family History Paternal Family History: Family History (Last Reviewed 11/15/18 @ 15:51 by Dixon Estrella DO) Father Heart disease Hypertension Prostate cancer Mother Hypertension History Items: Cancer - prostate, Heart Disease, Hypertension Sibling Family History: Family History (Last Reviewed 11/15/18 @ 15:51 by Dixon Estrella DO) Father Heart disease Hypertension Prostate cancer Mother Hypertension History Items: Diabetes Maternal Family History: Family History (Last Reviewed 11/15/18 @ 15:51 by Dixon Estrella DO) Father Heart disease Hypertension Prostate cancer Mother Hypertension History Items: Hypertension Review of Systems Constitutional: Reports: Weakness, Fatigue. Denies: Anorexia, Chills, Fever Cardiovascular: Reports: Chest Pain. Denies: Edema, Palpitations, Syncope Respiratory: Reports: Shortness of Breath, Shortness of breath at rest, Shortness of breath upon exertion. Denies: Cough Gastrointestinal: Denies: Constipation, Diarrhea, Nausea, Vomiting Hematologic/ Lymphatic: Reports: Anemia Patient Problems: Active and Suspected Problems (Last Reviewed 11/15/18 @ 15:51 by Dixon Estrella DO) Chest pain (Acute) - Physical Exam Vitals/I&O's: Vital Signs Temp Pulse Resp BP Pulse Ox 98.3 F 65 18 129/60 H 98 02/18/19 08:09 02/18/19 08:09 02/18/19 08:09 02/18/19 08:09 02/18/19 08:09 Oxygen Flow Rate (L/min) 2 Oxygen Delivery Method Nasal Cannula Weight: 91.7 kg Body Mass Index (BMI) 38.2 Finger Stick Blood Glucose 275 Intake and Output for Last 24 Hours 02/16/19 02/17/19 02/18/19 23:59 23:59 23:59 Intake Total 0 / 0 Balance 0 / 0 General: Alert, Oriented x3, Cooperative, No apparent distress Lungs: Clear to auscultation Cardiovascular: Regular rate Abdomen: Bowel Sounds Present, Soft, Non Tender, Non-Distended Extremities: No edema Psych/Mental Status: Normal Affect, Appropriate, Alert and oriented to time, place, person, mood and affect Laboratory Results 02/18/19 00:30: WBC 7.6, RBC 3.41 L, Hgb 9.9 L, Hct 31.7 L, MCV 93.0, MCH 29.0, MCHC 31.2 L, RDW Std Deviation 59.1 H, RDW Coeff of Lauren 17.3 H, Plt Count 215, MPV 10.5, Immature Gran % (Auto) 0.300, Neut % (Auto) 69.2, Lymph % (Auto) 18.5 L, Hughes % (Auto) 9.9, Eos % (Auto) 1.4, Baso % (Auto) 0.7, Absolute Neuts (auto) 5.3, Absolute Lymphs (auto) 1.41, Nucleated RBC % 0 02/18/19 00:30: Sodium 132 L, Potassium 5.0, Chloride 94 L, Carbon Dioxide 30.0, Anion Gap 8, BUN 59 H, Creatinine 5.31 H, Estim Creat Clear Calc 10.26, Est GFR (MDRD) Af Amer 11 L, Est GFR (MDRD) Non-Af 9 L, BUN/Creatinine Ratio 11.1, Glucose 380 H, Calcium 9.6, Troponin I < 0.015 02/18/19 00:30: Magnesium 2.2 02/18/19 03:48: Troponin I 0.575 H 02/18/19 06:01: POC Glucose 317 H 02/18/19 06:02: WBC 6.8, RBC 3.14 L, Hgb 9.2 L, Hct 29.5 L, MCV 93.9, MCH 29.3, MCHC 31.2 L, RDW Std Deviation 60.5 H, RDW Coeff of Lauren 17.4 H, Plt Count 217, MPV 10.2, Immature Gran % (Auto) 0.300, Neut % (Auto) 68.1, Lymph % (Auto) 18.9 L, Hughes % (Auto) 10.5 H, Eos % (Auto) 1.8, Baso % (Auto) 0.4, Absolute Neuts (auto) 4.7, Absolute Lymphs (auto) 1.29, Nucleated RBC % 0 02/18/19 06:02: Sodium 132 L, Potassium 5.2 H, Chloride 96 L, Carbon Dioxide 28.0, Anion Gap 8, BUN 62 H, Creatinine 5.59 H, Estim Creat Clear Calc 8.18, Est GFR (MDRD) Af Amer 10 L, Est GFR (MDRD) Non-Af 8 L, BUN/Creatinine Ratio 11.1, Glucose 316 H, Calcium 9.1, Troponin I 1.890 H*, Triglycerides 87, Cholesterol 119, LDL Cholesterol 41, VLDL Cholesterol 17, HDL Cholesterol 61 02/18/19 06:02: PT 14.6, INR 1.2, APTT 33.3 Current Medications Acetaminophen (Tylenol) 650 mg PO Q6H PRN PRN PRN Reason: Non-cardiac pain Hydrocodone Bitart/Acetaminophen (Burton 5mg-325mg) 1 - 2 tablet PO Q6H PRN PRN PRN Reason: Pain Score 4-10/10 Al Hydroxide/Mg Hydroxide (Mylanta Ii) 15 - 30 ml PO Q4H PRN PRN PRN Reason: INDIGESTION Albuterol Sulfate (Ventolin Aerosols) 2.5 mg INHALATION Q2H PRN PRN PRN Reason: dyspnea, wheezing Albuterol/Ipratropium (Duoneb) 3 ml INHALATION Q6HWA.RT [facility] Last Admin: 02/18/19 07:20 Dose: 3 ml Documented by: Aspirin (Aspirin, Baby) 81 mg PO DAILY@0800 [facility] Last Admin: 02/18/19 08:28 Dose: 81 mg Documented by: Atorvastatin Calcium (Lipitor) 80 mg PO QHS [facility] Carvedilol (Coreg) 12.5 mg PO BID [facility] Last Admin: 02/18/19 08:28 Dose: 12.5 mg Documented by: Citalopram Hydrobromide (Celexa) 20 mg PO DAILY [facility] Clopidogrel Bisulfate (Plavix) 75 mg PO DAILY [facility] Last Admin: 02/18/19 08:30 Dose: 75 mg Documented by: Dextrose (D50w Syringe) 0 gm IV X1 PRN; Protocol PRN Reason: Hypoglycemia Famotidine (Pepcid) 40 mg PO DAILY [facility] Gabapentin (Neurontin) 300 mg PO QHS [facility] Glucagon () 1 mg IM .X1 PRN PRN Reason: Hypoglycemia Heparin Sodium (Porcine) (Heparin Na) 5,000 unit SC Q12 [facility] Heparin Sodium (Porcine) (Heparin Na) 0 unit IV UD PRN; Protocol Hydralazine HCl (Apresoline Iv) 10 mg IV Q4H PRN PRN PRN Reason: SBP > 160 Sodium Chloride () 250 mls @ 15 mls/hr IV .[id number] PRN PRN Reason: Saline Flush Heparin Sodium/Dextrose () 25,000 units in 250 mls @ 14 mls/hr IV .[id number] [facility]; Protocol Last Admin: 02/18/19 07:25 Dose: 1,400 units/hr, 14 mls/hr Documented by: Sodium Chloride () 1,000 mls @ 0 mls/hr IV .Q0M [facility] Insulin Glargine (Lantus (Bkc)) 20 units SC DAILY [facility] Insulin Human Lispro (Humalog Kwikpen (Bkc)) 0 unit SC ACHS [facility]; Protocol Last Admin: 02/18/19 08:29 Dose: 5 u Documented by: Isosorbide Mononitrate (Imdur) 60 mg PO BID [facility] Last Admin: 02/18/19 08:28 Dose: 60 mg Documented by: Magnesium Hydroxide (Milk Of Magnesia) 30 ml PO DAILY PRN PRN PRN Reason: Constipation Morphine Sulfate () 1 - 2 mg IV Q4H PRN PRN PRN Reason: Pain Score 1-10/10 Multivit/Ca Carb/B Cmplx/FA/Prenat (Nephrocaps, Renaphro) 1 capsule PO DAILY [facility] Nitroglycerin (Nitrostat) 0.4 mg SUBLINGUAL Q5M PRN PRN Reason: CARDIAC/CHEST PAIN Ondansetron HCl (Zofran) 4 mg IV Q8H PRN PRN PRN Reason: NAUSEA/VOMITING Ranolazine (Ranexa) 500 mg PO BID [facility] Last Admin: 02/18/19 08:28 Dose: 500 mg Documented by: Senna (Senokot) 1 tablet PO QHS PRN PRN PRN Reason: Constipation Sodium Chloride () 10 - 40 ml IV UD PRN PRN Reason: SALINE FLUSH Timolol Maleate (Timoptic) 1 drop RIGHT EYE BID [facility] Assessment/Plan All Active Problems (Last Reviewed 11/15/18 @ 15:51 by Dixon Estrella DO) Sepsis due to pneumonia (Acute) Healthcare-associated pneumonia (Acute) Hyponatremia (Acute) Hyperglycemia due to type 2 diabetes mellitus (Acute) Chest pain (Acute) Postsurgical percutaneous transluminal coronary angioplasty (PTCA) status (Resolved 02/18/19) NSTEMI (non-ST elevated myocardial infarction) (Resolved) Abnormal stress test (Resolved) Acute respiratory failure with hypoxemia (Resolved) Acute respiratory failure with hypoxia (Resolved) Arteriovenous fistula stenosis (Resolved) COPD with acute exacerbation (Resolved) Non-ST elevation MD (NSTEMI) (Resolved) 1. ESRD HD THS. Dialysis later today after heart cath 2. Unstable angina with +trop. Cardiology consulted. 3. DM2 stable 4. HTN stable 5. Anemia hgb stable, MORGAN on dialysis dialysis this afternoon. Proceeding without incident.
[2019-02-18] MEDS: 0.9% Saline Lock 10 ML Syringe IV (09:28)
--- NOTE | 2019-02-18 11:02 | CL.I_ITS ---
Patient Name: REHAN COOK Study Date: 02/18/2019 Performing: Freddie Huang MD Ht: 61.02 inches 155 cm : 1960 Wt: 202.83 lbs 92 kg Age: 58 Gender: female BSA: 1.9 PROCEDURE(S) PERFORMED [id number]/COR/LV/CABG ST71-OMR W OR WO PTCA, SINGLE CORONARY ARTERY CLINICAL PROFILE AND CO-MORBIDITIES Heart Failure: NYHA Class: 1, Newly Diagnosed: Yes, Heart Failure Type: Systolic Stress/Imaging Stress/Image Study Performed: No Angina Classification Anginal Classification w/in 2 Weeks: CCS III CAD Presentations: Unstable angina. Non-STEMI. Symptom onset Date/Time: 02/17/2019 Time Not Avail able Comorbidities/Risk Factors: Hypertension Dyslipidemia Prior CHF Prior PCI Prior CABG CONCLUSIONS Global LV systolic dysfunction- Moderate LVEF: by LV gram 40-45 % Elevated Left Ventricular End Diastolic Pressure Triple vessel CAD of the LAD, LCX, RCA Widely patent KINCAID to LAD Widely patent SVG to OM with well healed distal SVG anastomitic site from previous PCI/POBA. Successful PTCA/MIGUEL distal RCA with a 2.25 x 16 Promus Synergy, 75%-->0%, no dissection. Pt had iden tical chest pressure during stent deployment. Successful PTCA/MIGUEL Proximal RCA with a 2.5 x 20 Promus Synergy, post dilated throughout with a 2.5 x 8 NC Balloon; 75%-->0%, no dissection. RECOMMENDATIONS Referred for immediate PCI Highly recommend quitting all tobacco products Follow up with primary supervisor decorating Risk factor modification ASA Indefinitley Plavix for at least 12 months Routine post interventional care Refer for Outpatient Cardiac Rehab Manual sheath removal per protocol Follow up with Dr. Huang Manual sheath removal. Medical managment of proximal PDA as vessel is too small for stenting. DESCRIPTION OF PROCEDURE The patient arrived to the procedure lab. The risks and benefits of the procedure as well as a full d escription of our services here and lack of surgical backup were fully explained to the patient and/o r their significant other prior to the catheterization. The Timeout was completed, verifying the ayana ect patient and procedure. The patient's procedural site was prepped and draped in the usual fashion. Local anesthetic was given subcutaneously to right groin region with Lidocaine 2%. Using a modified Seldinger technique, arterial access was obtained via the right femoral artery, a 4Fr sheath was inse rted. Left Coronary Artery selective angiography was performed in multiple views using a 4 Fr. JL5 c atheter. Right Coronary Artery selective angiography was then performed in multiple views using a 4 F r. 3DRC catheter. Saphenous Vein graft to the Circumflex selective angiography was performed in multi ple views using a 4 Fr. 3DRC catheter. Left internal mammary artery graft to the LAD selective angiography was performed in multiple views using a 4 Fr. 3DRC catheter. Left Ventriculogra phy was performed in KHOURY projection using a 4 Fr. Pigtail catheter. LV to AO pullback pressures were then recordedThe images were reviewed and options discussed. A decision was then made to proceed with an Intervention, IVUS or other adjunct procedure. Arterial sheath was exchanged for a 6 Fr Sheath. HS II Guide catheter was inserted and engaged in to the RCA. BMW Guide wire was advanced to the RCA. 2.0x12 Emerge Balloon catheter was advanced acros s lesion in the right coronary, distal. PTCA balloon inflated at 8 atms for 7 secs. PTCA balloon infl ated at 10 atms for 8 secs. 2.25x16 synergy Drug Eluting stent was advanced across the lesion in the right coronary, distal. Angiogram performed post stent deployment. 2.5x20 Synergy Drug Eluting stent was advanced across the lesion in the right coronary, proximal. 2.5x8 NC Emerge Balloon catheter was advanced across lesion in the right coronary, proximal. PTCA balloon inflated at 15 atms for 8 secs. PTCA balloon inflated at 16 atms for 11 secs. PTCA balloon inflated at 6 atms for 7 secs. Angiogram p erformed post balloon dilatation. angiogram performed to right groin to test for closure purpose. ^Fr eeText^ The arterial sheath was sutured in place and capped CORONARY ANGIOGRAPHY DOMINANCE: Right Dominant LEFT HEART ASSESSMENT Left Ventricular Ejection Fraction: by LV Gram 40-45 % LVEDP: 30 mmHg Elevated Left Ventricular End Diastolic Pressure Depressed Left Ventricular systolic function Global Hypokinesis - Moderate LEFT ANTERIOR DESCENDING ARTERY: PROX LAD: 85 % Stenosis CIRCUMFLEX ARTERY: 99 % Stenosis RIGHT CORONARY ARTERY: PROX RCA: 75 % Stenosis DISTAL RCA: 75 % Stenosis RT PDA: Proximal - 50 % Stenosis GRAFTS: KINCAID graft to the LAD is patent Saphenous Vein graft to the 1st OM is patent INTERVENTION INFORMATION LESION SITE: RCA (Distal) Lesion Complexity: Non-High/Non-C, lesion at bifurcation: No, thrombus present: No, lesion length: 16 mm, culprit lesion: Yes Pre Stenosis: 75 % Pre intervention NITIN flow: 3 PROCEDURE: Drug Eluting Stent with pre dilatation. Post Stenosis: 0 % Post intervention NITIN flow: 3 Lesion Devices: Medtronic 6 Fr HSII 100cm Guide Catheter Paredes .014 BMW [place] Straight 190cm Nando Sci EMERGE MR 2.00x12 BALLOON Nando Sci Synergy MR MIGUEL 2.25x16 LESION SITE: RCA (Proximal) Lesion Complexity: High/C, lesion at bifurcation: No, thrombus present: No, lesion length: 20 mm, cul prit lesion: No Pre Stenosis: 75 % Pre intervention NITIN flow: 3 PROCEDURE: Drug Eluting Stent with pre and post dilatation Post Stenosis: 0 % Post intervention NITIN flow: 3 Lesion Devices: Medtronic 6 Fr HSII 100cm Guide Catheter Paredes .014 BMW [place] Straight 190cm Nando Sci EMERGE MR 2.00x12 BALLOON Nando Sci Synergy MR MIGUEL 2.50x20 Nando Sci NC EMERGE MR 2.50x08 BALLOON COMPLICATIONS No Complications PROCEDURE MEDICATIONS Oxygen: 2 L/min via nasal cannula Heparin 6000 unit(s) IV 02/18/2019 10:17:54 Nitro 200 mcg IC 02/18/2019 10:10:16 IV Bolus: .9 NaCl 250 ml total 02/18/2019 10:49:15 SUMMARY OF HEMODYNAMIC DATA Time AIR REST ECG 09:56:19 AO 111/52 (66) SA 10:06:06 LV 104/0, 29 10:16:03 LV 106/0, 30 10:16:10 LVp 101/-1, 27 10:16:19 AOp 102/44 (65) 10:16:24 Signed By Freddie Huang MD On 02/18/2019 11:01:59 Freddie Huang MD
--- NOTE | 2019-02-18 11:22 | ECHOCS_ITS ---
Reason For Study: CHF Procedure This was a 2D Doppler, Color Flow transthoracic echocardiogram. Exam performed portable in patient room. Left Ventricle Mildly dilated left ventricle. The estimated ejection fraction is 45 %. Stage 2 diastolic dysfunction. Posterior-Basal: Mildly hypokinetic. Infero-Basal: Mildly hypokinetic. Right Ventricle Normal size and thickness. Normal systolic function. Atria Normal left atrium. Normal right atrium. Normal atrial septum. Bubble contrast study negative for right to left interatrial shunt. Mitral Valve Mild diffuse mitral valve thickening. Mild (1+) posteriorly directed mitral valve insufficiency. Tricuspid Valve Normal tricuspid valve. Mild (1+) tricuspid valve insufficiency. Right ventricular systolic pressure estimated to be 38 mmHg. Mild pulmonary hypertension. Aortic Valve Trisinus/trileaflet aortic valve. Mild diffuse aortic valve thickening. There is no aortic stenosis. Pulmonic Valve Normal pulmonic valve. Great Vessels Normal aortic root. Normal arch. Normal inferior vena cava. Inferior vena cava collapse with sniff. Pericardium/Pleural No pericardial effusion. Medication Performed a rapid injection of agitated mix of 9 cc saline and 1cc air to assess for atrial septal defect. MMode/2D Measurements & Calculations LVIDd: 5.0 cm IVSd: 1.0 cm Ao root diam: 2.8 cm LVIDs: 3.6 cm LVPWd: 0.98 cm RVDd: 3.6 cm FS: 28.2 % LAV(MOD-bp): 47.1 ml LVAd ap4: 32.4 cm2 SV(MOD-sp4): 51.9 ml LAV(MOD-bp) Indexed: 24.8 ml/m2 EDV(MOD-sp4): 113.5 ml LAV(MOD-sp2): 42.5 ml EDV(sp4-el): 114.8 ml LAV(MOD-sp4): 49.1 ml LVAs ap4: 23.4 cm2 ESV(MOD-sp4): 61.5 ml ESV(sp4-el): 61.7 ml EF(MOD-sp4): 45.8 % EF(sp4-el): 46.3 % SV(sp4-el): 53.2 ml LA A4 area: 18.9 cm2 RA A4 area: 15.0 cm2 Time Measurements MV dec time: 0.17 sec Doppler Measurements & Calculations MV E max fransisco: 118.2 cm/sec Lat Peak E' Fransisco: 5.5 cm/sec Med Peak E' Fransisco: 5.6 cm/sec MV A max fransisco: 79.9 cm/sec E/E' lat: 21.5 E/E' med: 21.1 MV E/A: 1.5 Ao V2 max: 158.5 cm/sec LV V1 max: 95.2 cm/sec PA V2 max: 77.5 cm/sec Ao max P.1 mmHg LV V1 max P.6 mmHg TR max fransisco: 284.8 cm/sec TR max P.5 mmHg Interpretation Summary Mildly dilated left ventricle. The estimated ejection fraction is 45 %. Stage 2 diastolic dysfunction. Posterior-Basal: Mildly hypokinetic Infero-Basal: Mildly hypokinetic Bubble contrast study negative for right to left interatrial shunt. Mild (1+) posteriorly directed mitral valve insufficiency. Mild (1+) tricuspid valve insufficiency. Right ventricular systolic pressure estimated to be 38 mmHg. Mild pulmonary hypertension. Compared to echo report dated 10/10/2017, LV function has remained the same, and RVSP has improved from 56 to 38 mm HG. Ordering Physician: Freddie Huang Referring Physician: Laurel Posey Performed By: Joana Benavidez RDCS
[2019-02-18] MEDS: 0.9% Normal Saline 1,000 ML 150 ML IV (11:30)
--- NOTE | 2019-02-18 11:35 | NURSING ---
sheath pull 1135 HR 58 R 16 BP 103/47 SpO2 99 1140 HR 59 R 16 BP 99/53 SpO2 98 1145 HR 58 R 16 BP 116/50 SpO2 90 1150 HR 58 R 17 BP 127/49 SpO2 97 1155 HR 59 R 15 BP 90/63 SpO2 92 see post cath intervention
--- NOTE | 2019-02-18 11:39 | CRPHASE1 ---
Patient Communication Former Patient:: Phase I - Previous Phase I patient, Phase II - Previous Outpatient Phase II x 2 here at [facility] PHII Cardiac Rehab Discussed with Patient:: Yes Guide to Cardiac Rehab Given to Patient:: Yes Cardiac Rehab Facility Choice List Given to Patient:: Yes Choice Program [facility] CR PHII:: Communication Given to CR, Refer to [facility] Senior Hardware Engineer:: Freddie Huang Refer Phase II Cardiac Rehab:: Yes Sessions:: 36 sessions - 3 days/wk, 12 weeks Risk Factors/Lifestyle Family History: Family History (Last Reviewed 11/15/18 @ 15:51 by Dixon Estrella DO) Father Heart disease Hypertension Prostate cancer Mother Hypertension Laboratory Values: Cardiac Rehab Phase I Labs Triglycerides 87 mg/dL (-199) 02/18/19 06:02 Cholesterol 119 mg/dL (200) 02/18/19 06:02 LDL Cholesterol 41 mg/dL (0-130) 02/18/19 06:02 HDL Cholesterol 61 mg/dL (40-) 02/18/19 06:02 Cardiac Rehabilitation Info Cardiac Rehabilitation Program Information: Cardiac Rehabilitation is important for patients like you who are recovering from a heart problem. Cardiac rehabilitation programs are recognized as integral to the continued care of the patient with coronary heart disease. The cardiac rehabilitation program is designed to optimize a patient's physical, psychological, and social functioning. Health floor care specialist work in cardiac rehabilitation programs and assist you with getting the treatments you need to get stronger and healthier - like exercise, healthy eating habits, and medications. Cardiac rehabilitation has been show to help people with heart problems live longer and have better life enjoyment than people who do not go to cardiac rehabilitation. Please contact the Cardiac Rehabilitation Program at [facility] at in two weeks if you have not heard from them.
--- NOTE | 2019-02-18 11:41 | CRPH1.INSTRU ---
General Education CAD and cardiac anatomy and function:: Not instructed Explanation of diagnoses and procedures:: Not instructed Sign/Symptoms of ND:: Not instructed Antiplatelet therapy: Not instructed Proper use of NTG-SL: Not instructed Emergency procedures and activation of EMS: Not instructed Compliance of all prescribed medications: Not instructed - Patient has been through both Phase I and Phase II cardiac rehab in the past and has had formalized patient education & training about heart disease.
--- NOTE | 2019-02-18 11:50 | CASEMGMT ---
RN CM Note: attempted to complete RN CM assessment. Pt recently returned from heart cath. Reciving dialysis @ this time. Claire LUCASN RN ACM
[2019-02-18 12:36] LABS: ACT Activated Clotting Time 175 sec (74-137)
[2019-02-18 12:36] LABS: ACT Activated Clotting Time 131 sec (74-137)
--- NOTE | 2019-02-18 16:46 | DIALYSIS ---
Pt tolerated 3.25hr HD tx well. Net UF -2200ml. See flow record for tx data.
[2019-02-18 17:15] LABS: Bedside Glucose 116 mg/dL (70-110)
[2019-02-18] MEDS: Famotidine 20 MG Tablet 40 MG PO (17:49)
[2019-02-18] MEDS: Folic Acid/Vitamin B Comp W-C 1 Capsule 1 CAP PO (17:49)
[2019-02-18] MEDS: Citalopram 20 MG Tablet PO (17:49)
[2019-02-18] MEDS: hydrALAZINE 20 MG/ML Vial 10 MG IV (18:45)
[2019-02-18] MEDS: Gabapentin 300 MG Capsule PO (21:26)
[2019-02-18] MEDS: Atorvastatin Calcium 80 MG Tablet PO (21:27)
[2019-02-18] MEDS: Timolol 0.5% 5ML OPTH.BTL 1 DRP RIGHT EYE (21:27)
[2019-02-18 21:40] LABS: Bedside Glucose 214 mg/dL (70-110)
[2019-02-18] MEDS: HYDROcodone Bitartrate/Apap 5/325 Tablet PO (22:41)
[2019-02-19] VITALS (14 sets, daily range): BP systolic 100–146; BP diastolic 39–75; PULSE 60–69; RESP 8–95; TEMP 36.8; O2SAT 94–100
[2019-02-19 04:18] LABS: Hematocrit 30.7 % (37-47); Hemoglobin 9.4 g/dL (12.0-15.0); Mean Corp Hgb Conc 30.6 g/dL (32-36); Mean Corpuscular Hgb 28.7 pg (27.0-32.0); Mean Corpuscular Volume 93.6 fL (81-99); Mean Platelet Vol. 10.3 fl (6.2-12.0); Platelet Count 207 K/mm3 (150-450); RBC Distribution Width CV 17.7 % (11.6-14.6); RBC Distribution Width SD 61.1 fl (35.1-43.9); Red Blood Count 3.28 M/mm3 (4.2-5.4); White Blood Count 6.8 K/mm3 (4.4-11.0)
[2019-02-19 04:37] LABS: ALB/GLOB Ratio 0.7 RATIO (0.9-2.4); AST(SGOT) 36 U/L (15-37); Alanine Aminotransfer ALT/SGPT 19 U/L (13-56); Albumin, Serum 2.8 g/dL (3.2-5.0); Alkaline Phosphatase 67 U/L (45-117); Anion Gap 8 (5-15); BUN 37 mg/dL (7-18); BUN/Creat Ratio 9.5 RATIO (10-20); Calcium,Total 8.1 mg/dL (8.5-10.1); Chloride 97 mmol/L (98-107); Cholesterol 121 mg/dL (200); EST Glomerular Filtration Rate 13 mL/min (>60); Est Glom Filt Rate - Afr Amer 15 mL/min (>60); Estimated Creatinine Clearance 11.72 ml/min; Globulin 3.8 g/dL (2.2-4.2); Glucose 237 mg/dL (74-106); High Density Lipoprotein 62 mg/dL; Potassium 4.1 mmol/L (3.5-5.1); Protein, Total 6.6 g/dL (6.4-8.2); Sodium Level 133 mmol/L (136-145); Triglycerides 105 mg/dL; Very Low Density Lipoprotein 21 mg/dL (5-40)
[2019-02-19] MEDS: Ipratropium/Albuterol Sulfate 3 ML AMPUL.NEB INHALATION (06:55)
[2019-02-19 07:01] LABS: Bedside Glucose 246 mg/dL (70-110)
--- NOTE | 2019-02-19 08:09 | PCM.PN.CARD ---
Subjectve: Patient doing well this morning, no further chest pain. Right groin is clean/dry/intact. No thrills, bruits or hematoma. 2+ DP and PT pulses bilaterally. Patient underwent hemodialysis yesterday without complications or anginal symptoms. EKG shows normal sinus rhythm, resolved lateral ST segment depression. Telemetry negative. JEF globin stable. Echo pending. Objective: Vital Signs Temp Pulse Resp BP Pulse Ox 98.2 F 65 95 H 100/39 L 95 02/19/19 04:00 02/19/19 07:00 02/19/19 07:00 02/19/19 07:00 02/19/19 07:00 Oxygen Flow Rate (L/min) 2 Oxygen Delivery Method Room Air Weight: 202 lb 2.622 oz Body Mass Index (BMI) 38.2 Finger Stick Blood Glucose 275 Intake and Output for Last 24 Hours 02/17/19 02/18/19 02/19/19 23:59 23:59 23:59 Intake Total 1972.0 / 1972.0 350 / 350 Output Total 2200 / 2200 Balance -228.0 / -228.0 350 / 350 General: Awake, Alert, Oriented x 3 HEENT: PERRL, EOMI, Sclera Non Icteric Neck: Supple, Good ROM, No Lymph Node Enlargement Lungs: Clear to auscultation Cardiovascular: Regular Rhythm, Normal S1, Normal S2, No Murmurs, No Rubs, No Gallops 02/19/19 04:10: WBC 6.8, RBC 3.28 L, Hgb 9.4 L, Hct 30.7 L, MCV 93.6, MCH 28.7, MCHC 30.6 L, Plt Count 207, MPV 10.3 02/19/19 04:10: Sodium 133 L, Potassium 4.1, Chloride 97 L, Carbon Dioxide 28.0, Anion Gap 8, BUN 37 H, Creatinine 3.90 H, Est GFR (MDRD) Af Amer 15 L, Est GFR (MDRD) Non-Af 13 L, BUN/Creatinine Ratio 9.5 L, Glucose 237 H, Calcium 8.1 L, Total Bilirubin 0.60, Triglycerides 105, Cholesterol 121, LDL Cholesterol 38, VLDL Cholesterol 21, HDL Cholesterol 62 Rhythm: EKG: ECHO: Stress Test: Cardiac Cath: PCI: CT Surgery: Holter monitor: EPS: PPM: CXR: Chest CT Scan: Medical Necessity - Tobacco Use Smoking Status: Former smoker Tobacco Use: Non-smoker Assessment/Plan 1. Coronary artery disease: The patient presented with unstable anginal symptoms, and small troponin release of patient underwent successful angioplasty and drug-eluting stenting x2 to her [place] right coronary artery. Her previous balloon angioplasty at the distal anastomotic site of a saphenous vein graft to the OM showed excellent healing, and no additional stenting was recommended or performed. In addition her LV function appeared to be moderate to severely depressed on LV angiogram. Her previous echocardiogram in 2018 showed inferior posterior hypokinesis with an EF around 50%. Repeat echocardiogram is pending. In addition she was found to have an elevated LVEDP of approximately 30 but this was prior to her hemodialysis. During dialysis the patient's blood pressure has decreased to the 1 teens. I am hesitant to place the patient on hydralazine and she is unable to take SABINA inhibitors due to her allergic reaction. She is currently on Imdur and Coreg which are a surrogate for afterload reduction. I would recommend that she undergo cardiac rehab and that we get a repeat baseline echocardiogram today, followed by repeat echocardiogram in 3 to 4 months time subsequent to cardiac rehab to determine if the patient's LV function mandates a AICD for primary SCD prophylaxis. In the meantime she will continue baby aspirin and Plavix for life, and her current antihypertensive medications as outlined in the MRF. 2. Hyperlipidemia: Continue statin based medications. 3. Patient may be discharged home and follow-up with Dr. Huang going forward. Thank you very much for the opportunity to participate in the cardiac care of your patient. Code Visit Inpatient E&M: 38004 Subs Hosp L2
--- NOTE | 2019-02-19 08:55 | PCM.PN.BLA ---
Progress Note episode of chest pain last night with sob, diaphoresis. No CP this am. Echo in progress. Tolerated HD yesterday after heart cath without CP. VSS labs reviewed PE stable ESRD HD S. Next dialysis . F/U at dialysis center HTN stable unstable angina per cardiology s/p cath with PCI STROKE Vital Signs/Narrative: Vital Signs Pulse Resp BP Pulse Ox 02/19/19 07:00 65 95 H 100/39 L 95 02/19/19 06:55 66 16 02/19/19 06:00 69 18 116/58 L 97 02/19/19 05:00 67 18 120/46 L 96
[2019-02-19] MEDS: Citalopram 20 MG Tablet PO (09:25)
[2019-02-19] MEDS: Famotidine 20 MG Tablet 40 MG PO (09:25)
[2019-02-19] MEDS: Isosorbide Mononitrate 60 MG Tablet PO (09:25)
[2019-02-19] MEDS: Aspirin 81 MG TAB.CHEW PO (09:26)
[2019-02-19] MEDS: Folic Acid/Vitamin B Comp W-C 1 Capsule 1 CAP PO (09:26)
[2019-02-19] MEDS: Carvedilol 12.5 MG Tablet PO (09:26)
[2019-02-19] MEDS: Clopidogrel Bisulfate 75 MG Tablet PO (09:26)
[2019-02-19] MEDS: Timolol 0.5% 5ML OPTH.BTL 1 DRP RIGHT EYE (09:27)
[2019-02-19] MEDS: Ranolazine 500 MG Tablet PO (09:27)
[2019-02-19] MEDS: Insulin Lispro 100 UNIT/ML INSULN.PEN SC (09:30)
--- NOTE | 2019-02-19 09:31 | CASEMGMT ---
LW/POA forms scanned into summary tab of [facility], Carolina Casanova is listed as medical POA, and erisa attorney Carla Mchugh is listed as alternate. JERRY Lorenzo
--- NOTE | 2019-02-19 10:13 | PCM.DC ---
- Discharge Diagnoses Current Active Problems: Current Active and Chronic Problems (Last Reviewed 11/15/18 @ 15:51 by Dixon Estrella DO) Chest pain (Acute) You will use the following diet at home:: Cardiac Your food should be the consistency of: Regular Your liquids should be the consistency of: Regular/Thin Discharge Activity: Return to Normal Activity Call your doctor if your incision/area has: Continuous Slow Oozing, Sudden Increased Bleeding, Increased Pain/ Swelling, Increased Redness Call your doctor if you observe: Fever of 101 or Higher, Shortness of breath, Dizziness, Fainting spells, Swelling in the ankles, Chest pain, Increased palpitations (irregular heartbeat) Allergies/Adverse Reactions: Allergies lisinopril Allergy (Verified 02/18/19 00:24) Unknown ranitidine HCl [From Zantac] Allergy (Verified 02/18/19 00:24) Hives azithromycin Adverse Reaction (Verified 02/18/19 00:24) Nausea/Vom/Diarrhea Medications to take at Discharge Aspirin [Aspirin, Baby] 81 mg PO DAILY@0800 06/07/17 Atorvastatin Calcium [Lipitor] 80 mg PO QHS 06/07/17 Famotidine [Pepcid] 40 mg PO DAILY 06/07/17 Gabapentin [Neurontin] 300 mg PO QHS 06/07/17 Pyridoxine HCl (Vitamin B6) [B-6] 100 mg PO DAILY 06/07/17 Sennosides [Senna] 8.6 mg PO QHS PRN 06/07/17 ergocalciferol (vitamin D2) 50,000 unit capsule 50,000 unit PO QMONTH cap 08/01/17 isosorbide mononitrate ER 60 mg tablet,extended release 24 hr 60 mg PO BID #180 tab 02/04/18 clopidogrel 75 mg tablet 75 mg PO DAILY #30 tab 04/04/18 ranolazine ER 500 mg tablet,extended release,12 hr 500 mg PO BID #180 tab 06/03/18 Citalopram Hydrobromide [Citalopram HBr] 20 mg PO DAILY 11/15/18 Folic Acid/Vitamin B Comp W-C [Nephrocaps, Renaphro] 1 cap PO DAILY 11/15/18 Timolol 0.5% [Timoptic] 1 drp RIGHT EYE BID 11/15/18 Albuterol Inhaler [Ventolin Hfa] 1 puff INHALATION Q6H PRN PRN #1 inhaler 11/19/18 Carvedilol [Coreg] 12.5 mg PO BID #30 tab 11/19/18 Insulin Glargine,Hum.rec.anlog [T[place]okio Solostar] 20 unit SQ DAILY #0 11/19/18 Orders to be completed after discharge: Phase II, Outpatient Cardiac Rehab Location: None Selected Primary Care Physician: Brayden King Chi, MD [Primary Care Provider] - Please follow up with your Primary Care Physician in: 3-5 days Test Results: Test results from this visit will be discussed in further detail at your follow-up appointment, if applicable. Please Follow Up With: Freddie Huang MD When: 1 week
--- NOTE | 2019-02-19 10:24 | PCM.DC.SUM ---
Discharge Date and Diagnosis - Problem List Patient Problems: Active and Suspected Problems (Last Reviewed 11/15/18 @ 15:51 by Dixon Estrella DO) Chest pain (Acute) Date of Admission: 02/18/19 Date of Discharge: 02/19/19 - Primary Discharge Diagnosis Active and Suspected Problems (Last Reviewed 11/15/18 @ 15:51 by Dixon Estrella DO) Chest pain (Acute) - Secondary Discharge Diagnosis Chronic Problems (Last Reviewed 11/15/18 @ 15:51 by Dixon Estrella DO) Chronic kidney disease with end stage renal failure on dialysis (Chronic) History of non-ST elevation myocardial infarction (NSTEMI) (Chronic) Nonrheumatic mitral (valve) insufficiency (Chronic) Secondary pulmonary arterial hypertension (Chronic) Aortocoronary bypass status (Chronic 06/25/14) CABG x3- KINCAID-LAD, SVG-CX, SVG-RCA 06/25/14 @ [facility] Chronic diastolic (congestive) heart failure (Chronic) 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 History dialysis. Bilateral perihilar and right basilar interstitial edema and/or interstitial infiltrates. 2. Previous median sternotomy. Cath: PROCEDURE(S) PERFORMED [id number]/COR/LV/CABG [id number]-[id number] W OR WO PTCA, SINGLE CORONARY ARTERY CLINICAL PROFILE AND CO-MORBIDITIES Heart Failure: NYHA Class: 1, Newly Diagnosed: Yes, Heart Failure Type: Systolic Stress/Imaging Stress/Image Study Performed: No Angina Classification Anginal Classification w/in 2 Weeks: CCS III CAD Presentations: Unstable angina. Non-STEMI. Symptom onset Date/Time: 02/17/2019 Time Not Available Comorbidities/Risk Factors: Hypertension Dyslipidemia Prior CHF Prior PCI Prior CABG CONCLUSIONS Global LV systolic dysfunction- Moderate LVEF: by LV gram 40-45 % Elevated Left Ventricular End Diastolic Pressure Triple vessel CAD of the LAD, LCX, RCA Widely patent KINCAID to LAD Widely patent SVG to OM with well healed distal SVG anastomitic site from previous PCI/POBA. Successful PTCA/MIGUEL distal RCA with a 2.25 x 16 Promus Synergy, 75%-->0%, no dissection. Pt had identical chest pressure during stent deployment. Successful PTCA/MIGUEL Proximal RCA with a 2.5 x 20 Promus Synergy, post dilated throughout with a 2.5 x 8 NC Balloon; 75%-->0%, no dissection. RECOMMENDATIONS Referred for immediate PCI Highly recommend quitting all tobacco products Follow up with primary cork insulation installer Risk factor modification ASA Indefinitley Plavix for at least 12 months Routine post interventional care Refer for Outpatient Cardiac Rehab Manual sheath removal per protocol Follow up with Dr. Huang Manual sheath removal. Medical managment of proximal PDA as vessel is too small for stenting. Echo: Pending Consults: Nephrology Cardiology Operations: None Procedures: 2-D Echocardiogram, Cardiac catheterization Summary of Care Provided: Per HPI: The patient is a 58 y/o F w/ PMHx: Anxiety and Depression, Obesity, Chronic COPD, Diabetes mellitus type II, HTN, HLD, ESRD on HD TThSat, CAD s/p CABG x 3, Hx NSTEMI, CLAUDIO on BIPAP, GERD, Chronic Diastolic CHF, AOCD who presents to the [facility] ED on 02/18/19 with history of onset of midsternal/substernal chest pain described as pressure x 3 days, intermittent, worsened with activity with associated dyspnea, diaphoresis and nausea without emesis without radiation, noted 6-10/30 with occurrence, resolved with NG self administration; however, 02/17/19 10:30 pm, recurrent onset without improvement with NG administration. Patient does state that she has had recent dry cough but it is not severe and she has no associated dyspnea, congestion or recent upper respiratory infection. She denies any recent fevers or chills. She does have a chronically hoarse voice. Work-up in the ED included T 97.9, heart rate 71, BP 109/62, respiratory rate 16, 96% on room air, CBC with WBC 7.6, hemoglobin 9.9, platelet 215 without market shift, BMP with sodium 132, chloride 94, BUN/creatinine 59/5.31, glucose 380, troponin less than 0.015, chest x-ray with bilateral perihilar and right basilar interstitial edema and/or interstitial infiltrates, previous median sternotomy, EKG with sinus rhythm with mild ST depressions in V5 and V6 slightly more pronounced in comparison to October/2017. In the ED patient ministered aspirin therapy. Hospital Course: 1. Chest pain with unstable angina and NSTEMI/CAD s/p CABG/HTN/HLD/Chronic diastolic CHF-58 yo F with a h/o NSTEMI and a CABG presented with chest pain and an elevated troponin. SHe was taken to the cath laboratory technician where she had 2 stents placed. She has not had any chest pain on the day of discharge and is feeling pretty well. No changes were made to her medications and she was already on dual antiplatelets. She underwent dialysis on sunday and is on schedule for her usual -- dialysis. I discussed at length with her, diet and exercise and the need for weight loss secondary to her obesity and cardiac history. She expressed understanding of the risks and benefits of discharge. She had an echo prior to discharge that is pending. It was obtained as a baseline and she will need to have a repeat echo in 3-4 months for comparison. She will also need to f/u with her pcp, cardiology and take part in cardiac rehab. 2. her other medical diagnoses were evaluated and her home medications were continued where appropriate. Patient Problems: Active and Suspected Problems (Last Reviewed 11/15/18 @ 15:51 by Dixon Estrella DO) Chest pain (Acute) - Physical Exam Vitals/I&O's: Vital Signs Temp Pulse Resp BP Pulse Ox 98.2 F 66 18 115/62 96 02/19/19 04:00 02/19/19 08:00 02/19/19 08:00 02/19/19 08:00 02/19/19 08:00 Oxygen Flow Rate (L/min) 2 Oxygen Delivery Method Room Air Weight: 202 lb 2.622 oz Body Mass Index (BMI) 38.2 Finger Stick Blood Glucose 275 Intake and Output for Last 24 Hours 02/17/19 02/18/19 02/19/19 23:59 23:59 23:59 Intake Total 1972.0 / 1972.0 350 / 350 Output Total 2200 / 2200 Balance -228.0 / -228.0 350 / 350 General: Alert, Oriented x3, Cooperative, No apparent distress HEENT: Atraumatic, PERRLA, EOMI, Normocephalic Oral: Moist Mucosa Neck: Supple, No JVD Lungs: Clear to auscultation, Normal air movement, No rhonchi, No wheeze, No rales Cardiovascular: Regular rate, Regular Rhythm, Normal S1, Normal S2, No murmurs Abdomen: Soft, Non Tender, Non-Distended, No Hepato-splenomegaly, Obese Extremities: No edema, Capillary Refill Less than 3 Seconds Skin: No rashes, No breakdown Neurological: Neuro grossly intact, Sensory exam intact to light touch and pain Psych/Mental Status: Normal Affect, Appropriate Laboratory Results 02/18/19 10:08: Activated Clotting Time 131 02/18/19 10:43: Activated Clotting Time 175 H 02/18/19 17:07: POC Glucose 116 H 02/18/19 21:24: POC Glucose 214 H 02/19/19 04:10: WBC 6.8, RBC 3.28 L, Hgb 9.4 L, Hct 30.7 L, MCV 93.6, MCH 28.7, MCHC 30.6 L, RDW Std Deviation 61.1 H, RDW Coeff of Lauren 17.7 H, Plt Count 207, MPV 10.3 02/19/19 04:10: Sodium 133 L, Potassium 4.1, Chloride 97 L, Carbon Dioxide 28.0, Anion Gap 8, BUN 37 H, Creatinine 3.90 H, Estim Creat Clear Calc 11.72, Est GFR (MDRD) Af Amer 15 L, Est GFR (MDRD) Non-Af 13 L, BUN/Creatinine Ratio 9.5 L, Glucose 237 H, Calcium 8.1 L, Total Bilirubin 0.60, AST 36, ALT 19, Alkaline Phosphatase 67, Total Protein 6.6, Albumin 2.8 L, Globulin 3.8, Albumin/Globulin Ratio 0.7 L, Triglycerides 105, Cholesterol 121, LDL Cholesterol 38, VLDL Cholesterol 21, HDL Cholesterol 62 02/19/19 06:56: POC Glucose 246 H Current Medications Acetaminophen (Tylenol) 650 mg PO Q6H PRN PRN PRN Reason: Pain Score 1-3/10 Hydrocodone Bitart/Acetaminophen (Institute 5mg-325mg) 1 - 2 tablet PO Q6H PRN PRN PRN Reason: Pain Score 4-10/10 Last Admin: 02/18/19 22:41 Dose: 1 tablet Documented by: Al Hydroxide/Mg Hydroxide (Mylanta Ii) 15 - 30 ml PO Q4H PRN PRN PRN Reason: INDIGESTION Albuterol Sulfate (Ventolin Aerosols) 2.5 mg INHALATION Q2H PRN PRN PRN Reason: dyspnea, wheezing Albuterol/Ipratropium (Duoneb) 3 ml INHALATION Q6HWA.RT [facility] Last Admin: 02/19/19 06:55 Dose: 3 ml Documented by: Aspirin (Aspirin, Baby) 81 mg PO DAILY@0800 [facility] Last Admin: 02/19/19 09:26 Dose: 81 mg Documented by: Atorvastatin Calcium (Lipitor) 80 mg PO QHS [facility] Last Admin: 02/18/19 21:27 Dose: 80 mg Documented by: Atropine Sulfate () 0.5 mg IV UD PRN PRN Reason: HR <50 bpm Carvedilol (Coreg) 12.5 mg PO BID [facility] Last Admin: 02/19/19 09:26 Dose: 12.5 mg Documented by: Citalopram Hydrobromide (Celexa) 20 mg PO DAILY [facility] Last Admin: 02/19/19 09:25 Dose: 20 mg Documented by: Clopidogrel Bisulfate (Plavix) 75 mg PO DAILY [facility] Last Admin: 02/19/19 09:26 Dose: 75 mg Documented by: Dextrose (D50w Syringe) 0 gm IV X1 PRN; Protocol PRN Reason: Hypoglycemia Diazepam (Valium) 5 mg PO Q6H PRN PRN PRN Reason: BACK SPASMS/ANXIETY Famotidine (Pepcid) 40 mg PO DAILY [facility] Last Admin: 02/19/19 09:25 Dose: 40 mg Documented by: Gabapentin (Neurontin) 300 mg PO QHS [facility] Last Admin: 02/18/19 21:26 Dose: 300 mg Documented by: Glucagon () 1 mg IM .X1 PRN PRN Reason: Hypoglycemia Heparin Sodium (Porcine) (Heparin Na) 0 unit IV UD PRN; Protocol Hydralazine HCl (Apresoline Iv) 10 mg IV Q4H PRN PRN PRN Reason: SBP > 160 Last Admin: 02/18/19 18:45 Dose: 10 mg Documented by: Sodium Chloride () 250 mls @ 15 mls/hr IV .[id number] PRN PRN Reason: Saline Flush Last Infusion: 02/18/19 19:48 Dose: Infused Documented by: Heparin Sodium/Dextrose () 25,000 units in 250 mls @ 14 mls/hr IV .[id number] [facility]; Protocol Last Admin: 02/19/19 00:54 Dose: Not Given Documented by: Sodium Chloride () 1,000 mls @ 0 mls/hr IV .Q0M [facility] Insulin Glargine (Lantus ([facility])) 20 units SC DAILY [facility] Last Admin: 02/19/19 09:28 Dose: 20 u Documented by: Insulin Human Lispro (Humalog Kwikpen ([facility])) 0 unit SC ACHS [facility]; Protocol Last Admin: 02/19/19 09:30 Dose: 3 u Documented by: Isosorbide Mononitrate (Imdur) 60 mg PO BID [facility] Last Admin: 02/19/19 09:25 Dose: 60 mg Documented by: Labetalol HCl (Trandate) 5 mg IV X1 PRN PRN Reason: SBP > 160 when pulling sheath Magnesium Hydroxide (Milk Of Magnesia) 30 ml PO DAILY PRN PRN PRN Reason: Constipation Metoclopramide HCl (Reglan) 5 mg IV Q6H PRN PRN PRN Reason: NAUSEA/VOMITING Morphine Sulfate () 1 - 2 mg IV Q4H PRN PRN PRN Reason: Pain Score 1-10/10 Multivit/Ca Carb/B Cmplx/FA/Prenat (Nephrocaps, Renaphro) 1 capsule PO DAILY [facility] Last Admin: 02/19/19 09:26 Dose: 1 capsule Documented by: Nitroglycerin (Nitrostat) 0.4 mg SUBLINGUAL Q5M PRN PRN Reason: CARDIAC/CHEST PAIN Ondansetron HCl (Zofran) 4 mg IV Q8H PRN PRN PRN Reason: NAUSEA/VOMITING Ranolazine (Ranexa) 500 mg PO BID [facility] Last Admin: 02/19/19 09:27 Dose: 500 mg Documented by: Senna (Senokot) 1 tablet PO QHS PRN PRN PRN Reason: Constipation Sodium Chloride () 10 - 40 ml IV UD PRN PRN Reason: SALINE FLUSH Last Admin: 02/18/19 09:28 Dose: 10 ml Documented by: Sodium Chloride () 500 ml IV BOLUS PRN PRN Reason: VASO-VAGAL PROTOCOL Timolol Maleate (Timoptic) 1 drop RIGHT EYE BID [facility] Last Admin: 02/19/19 09:27 Dose: 1 drop Documented by: Discharge Activity: Return to Normal Activity Call your doctor if your incision/area has: Continuous Slow Oozing, Sudden Increased Bleeding, Increased Pain/ Swelling, Increased Redness Call your doctor if you observe: Fever of 101 or Higher, Shortness of breath, Dizziness, Fainting spells, Swelling in the ankles, Chest pain, Increased palpitations (irregular heartbeat) Home Medications: Medications to take at Discharge Aspirin [Aspirin, Baby] 81 mg PO DAILY@0800 06/07/17 Atorvastatin Calcium [Lipitor] 80 mg PO QHS 06/07/17 Famotidine [Pepcid] 40 mg PO DAILY 06/07/17 Gabapentin [Neurontin] 300 mg PO QHS 06/07/17 Pyridoxine HCl (Vitamin B6) [B-6] 100 mg PO DAILY 06/07/17 Sennosides [Senna] 8.6 mg PO QHS PRN 06/07/17 ergocalciferol (vitamin D2) 50,000 unit capsule 50,000 unit PO QMONTH cap 08/01/17 isosorbide mononitrate ER 60 mg tablet,extended release 24 hr 60 mg PO BID #180 tab 02/04/18 clopidogrel 75 mg tablet 75 mg PO DAILY #30 tab 04/04/18 ranolazine ER 500 mg tablet,extended release,12 hr 500 mg PO BID #180 tab 06/03/18 Citalopram Hydrobromide [Citalopram HBr] 20 mg PO DAILY 11/15/18 Folic Acid/Vitamin B Comp W-C [Nephrocaps, Renaphro] 1 cap PO DAILY 11/15/18 Timolol 0.5% [Timoptic] 1 drp RIGHT EYE BID 11/15/18 Albuterol Inhaler [Ventolin Hfa] 1 puff INHALATION Q6H PRN PRN #1 inhaler 11/19/18 Carvedilol [Coreg] 12.5 mg PO BID #30 tab 11/19/18 Insulin Glargine,Hum.rec.anlog [Jamal Estevez] 20 unit SQ DAILY #0 11/19/18 Other Amb Orders: Phase II, Outpatient Cardiac Rehab Location: None Selected Primary Care Physician: rBayden King Chi, MD [Primary Care Provider] - Please follow up with your Primary Care Physician in: 3-5 days Please Follow Up With: Freddie Huang MD When: 1 week Disposition: Home Minutes spent on discharge:: 35 Patient Condition:: Stable Medical Necessity - Tobacco Use Smoking Status: Former smoker Tobacco Use: Non-smoker Meaningful Use Info Meaningful Use Diagnoses (Choose all that apply): AMI - AMI Aspirin given w/in 24hrs of arrival?: Yes ASA at discharge?: Yes Statins at discharge?: Yes Chano/ARB at discharge?: No Reason Chaon/ARB not ordered:: Allergy Beta Hallie at discharge?: Yes Done w/ Acute AR measure.: Yes Code Visit Inpatient E&M: 17799 Disch Hosp
--- NOTE | 2019-02-19 10:25 | CASEMGMT ---
RN CM SERVICE COORDINATOR [facility] CM to room to meet with patient for initial transition planning/care coordination assessment. RN JACKSON introduced self and role at [facility]. Pt voices understanding and consents to assessment at this time. Pt sitting on edge of bed in no distress at this time. Daughter @ bedside. Pt agreeable to daughter being present for assessment. Pt is A/O at this time and answers all questions appropriately. Care providers, pharmacy, and demographics verified at this time. PCP: Fernando Specialists: Sal--cardio, Ayo--nephrology, Carlitos--pulmonology, Antonette--[facility] Center Goes to [facility] for Dialysis, T//S. Chair time 0530. Preferred Pharmacy: [facility] Retail Insurance: [facility] Prescription Benefit: Yes Living Will/HPOA: Has both LW and HCPOA, who is her mother, [place]. Copies of both on file @ [facility]. LNOK: Mother, 8 children. Living Arrangements: Lives with her adult son, Jeane and her 11-yr-old daughter also lives with her. States they live in a 2-story home. Has a bathroom on the main floor, but needs to go up to the 2nd floor where the shower is. States the stairs are difficult and she has considered getting a lift chair or possibly even renovating the 1st floor. States is independent with personal ADL's such as bathing and dressing. Has Waiver program. CM is Elena Vazquez. Has [facility] aides through [place] 3 days/week 2-3 hrs/day that assist with cooking/cleaning. Elaine FELIPE, made aware pt has waiver program and CM. Gets 7 meals/week through [facility] and son assists with some of the other meals. Transportation: Pt states she only drives occasionally. States has multiple family members that assist with transportation. Denies transportation concerns. DME: States has the following DME: shower chair, cane, rails/grab bars, hand held shower, medical alert button, nebulizer, BIPAP, and glucometer. States the glucometer is working properly and has all the needed supplies for it. States she has a walker that locks up sometimes. Encouraged to have walker brought in to have therapy look at it. Pt made aware to ask for CM if walker still does not work properly after therapy looks it for assistance with getting her a new one if needed. Pt voices understanding. Pt asked her daughter who is at bedside to bring it in at this time. Pt states she has been interested in getting a W/C for longer distances. Pt advised to talk with her PCP for assistance with a W/C. HHC/SNF: Hx of [facility] twice. has had HHC in the past, but does not remember the name of the agency and states they went out of business. is not interested in HHC, stating she would rather go for out-pt therapy. has been to [facility] in the past. Pt just had PCI and Cardiac Rehab anticipated. Pt instructed to discuss OP therapy with her PCP for options of further therapy after Cardiac Rehab completed, if she is interested at that time. Pt voices understanding. Pt wishes to return home and has no concerns with going home at time of discharge. CM to follow for any further discharge planning/needs. Pt voices no further concerns/needs at this time. Advised pt to ask for CM if any further questions/concerns/needs arise. Voices understanding. PLAN: Home w/family support and discharge plans in place. Johnathan ROWLEY RN CM
--- NOTE | 2019-02-19 11:05 | CASEMGMT ---
Pt is part of the waiver program, pt's cyanide case hardener is Dorothy Vazquez. SW called [employer], the company that provides aide services. SW let them know pt is returning home today, faxed discharge instructions and summary, and attained the numbers for Dorothy. DESTINEE called Dorothy on work phone([phone]), voicemail did not state who it was. DESTINEE called Elena's cell number ([phone]), was able to reach her. She explains the new voicemail for work is not fully set up but it is okay to leave messages there. DESTINEE let Elena know pt is returning home today. DESTINEE faxed her the discharge summary and instructions(fax is [phone]). No further needs anticipated, pt home today. JERRY Lorenzo
== END 2019-02-19 13:00 | disposition home or self-care (01) | DRG 246 ==
LOC: ED 02:13 → PCU 03:15 → ICU 14:22
PROVIDERS: Internal Medicine Cardiovascular Disease; Admitting Provider Family Medicine; Emergency Provider Emergency Medicine; Family Provider Family Medicine Geriatric Medicine; PCP Family Medicine Geriatric Medicine; Referring Provider Family Medicine; Visit Provider Family Medicine
DX: I21.4 Non-ST elevation (NSTEMI) myocardial infarction (principal); N18.6 End stage renal disease; I13.2 Hypertensive heart and chronic kidney disease with heart failure and with stage 5 chronic kidney disease, or end stage renal disease; N25.81 Secondary hyperparathyroidism of renal origin; E11.22 Type 2 diabetes mellitus with diabetic chronic kidney disease; E78.5 Hyperlipidemia, unspecified; G47.33 Obstructive sleep apnea (adult) (pediatric); Z95.1 Presence of aortocoronary bypass graft; Z99.2 Dependence on renal dialysis; I25.2 Old myocardial infarction; I34.0 Nonrheumatic mitral (valve) insufficiency; I27.21 Secondary pulmonary arterial hypertension; Z79.02 Long term (current) use of antithrombotics/antiplatelets; Z79.82 Long term (current) use of aspirin; Z79.4 Long term (current) use of insulin; E66.01 Morbid (severe) obesity due to excess calories; Z68.38 Body mass index [BMI] 38.0-38.9, adult; Z87.891 Personal history of nicotine dependence
CPT/HCPCS: 36415; 71045; 80048; 80053; 80061; 82962; 83735; 84484; 85025; 85027; 85347; 85610; 85730; 90937; 92928; 93005; 93306; 93458; 94640; 99285; J1756; J7030; J7040; J7050; Q9957; Q9967; A4216; C1725; C1769; C1874; C1887; C1894; C8929; C9600; G0257

== ENCOUNTER 2019-02-20 08:03 | Inpatient (IN) | payer MEDICARE, MEDICAID, SELFPAY ==
[2019-02-18 03:17] VITALS: BMI 38.2
[2019-02-20] VITALS (38 sets, daily range): BP systolic 103–151; BP diastolic 55–91; PULSE 67–75; RESP 13–30; TEMP 36.8–37.5; O2SAT 82–100; BMI 41.8; BMI 38.9; BMI 93.5
--- NOTE | 2019-02-20 08:19 | EKG12_ITS ---
Test Reason : CP Blood Pressure : / mmHG Vent. Rate : 075 BPM Atrial Rate : 075 BPM P-R Int : 188 ms QRS Dur : 098 ms QT Int : 466 ms P-R-T Axes : 053 -58 218 degrees QTc Int : 520 ms Normal sinus rhythm Possible Left atrial enlargement Left axis deviation Left ventricular hypertrophy Poor R wave progression ST/T Wave Abnormality: Consider myocardial ischemia (Glrodwfv-Gginrau-Bunxohrq) Prolonged QT Abnormal ECG Confirmed by KELVIN ZARAGOZA, JOCELYNE ([id number]), film editor MYRIAM PEREZ ([id number]) on 02/24/2019 10:07:54 AM Referred By: Mikal Rene Confirmed By:JOCELYNE WARREN MD
--- NOTE | 2019-02-20 08:22 | NURSING ---
STEMI ALERT CALLED
--- NOTE | 2019-02-20 08:32 | ED.VISSUMM ---
- ER Visit Summary Date of Service: 02/20/19 Chief Complaint: [Chest pain] History of Present Illness: The patient is a 58 F [presents to the emergency department complaint sudden onset of chest pain while at dialysis today around 7 AM. Patient has had continuous pain since that time. Patient describes a heaviness and pressure.] Patient tells me she had 2 stents placed yesterday by Dr. Huang. She does complain of shortness of breath. She does feel diaphoretic. Mild nausea. With history of coronary disease, COPD, diabetes, hypertension, chronic renal failure, and hyperparathyroidism. Patient has had prior three-vessel CABG in 2014. She is on Plavix. Received aspirin by EMS. Physical Examination: [HEENT-PERRLA, EOMI. Cranial nerves II through XII grossly intact. TMs clear. Mucous membranes moist. No adenopathy. Cardiovascular-regular rate and rhythm without murmur or ectopy Lungs-aeration bilaterally with few rales in the bases noted. No accessory muscle use or retractions. Abdomen-normoactive bowel sounds, soft, nontender, no rebound or rigidity, no peritoneal signs. Extremities-intact ?4, normal range of motion, normal pulses, atraumatic] Test Results: [EKG obtained arrival showed sinus rhythm with a ventricular rate of [address] elevation noted in aVR as well as V1 and V2 with ST depression V4 5 and 6. Patient was thought to have ST elevation FL.] Emergency Department Course and Treatment: [STEMI alert called and case discussed with Dr. Brian Huang who will take patient to [facility]. EKGs were sent via [employer] to control room helper. I was asked to give patient 4000 of heparin IV. I was asked to give patient Brilinta.] Treatment Plan: [Admit to [facility]] Disposition: [Admit] Impression: [Acute ST elevation FL] This note was generated with [employer] software. It may contain incorrect words, spelling, and punctuation that were not noted in review of the chart prior to signing ED Disposition - Plan for ED Patient: Referrals: Brayden King Chi, MD [Primary Care Provider] -
[2019-02-20] MEDS: Heparin 10,000 UNITS/10 ML Vial 4000 UNITS IV (08:35)
[2019-02-20] MEDS: 0.9% Normal Saline 1,000 ML 150 ML IV (08:35)
[2019-02-20] MEDS: TICAGRELOR 90 MG TABLET 180 MG PO (08:35)
--- NOTE | 2019-02-20 08:35 | RAD_ITS ---
STUDY: X-RAY CHEST REASON FOR EXAM: Female, 58 years old. Chest pain. TECHNIQUE: Single AP portable view of the chest. COMPARISON: Comparison is made with prior examination dated February 18, 2019. FINDINGS: EKG electrodes are seen. Stable bilateral interstitial infiltrates with areas of confluence in the lower lobes. This may represent CHF. There is no demonstrated pleural abnormality. Sternal cerclage wires and vascular clips are present from a prior sternotomy and coronary artery bypass graft procedure (CABG). Normal mediastinum and branden. Normal visualized pulmonary arteries. There is atherosclerotic calcification of the aortic arch with tortuosity. Normal visualized thoracic spine. Prior fusion of the lower cervical spine. There is no demonstrated abnormality of the visualized soft tissue structures of the upper abdomen. RAD/Chest 1 View (Portable) IMPRESSION: Stable bilateral interstitial infiltrates with areas of confluence suggestive of CHF. Electronically Signed: Saman Acevedo, at 8:56 EDT , Service support ,
[2019-02-20 08:40] LABS: Absolute Lymphocyte Count 1.01 X10^3/uL (0.83-4.51); Absolute Neutrophil Count 3.2 X10^3/uL (2.0-7.7); Basophil# 0.04 X10^3/uL; Basophil% 0.8 % (0-1); Eosinophil# 0.18 X10^3/uL; Eosinophils% 3.7 % (0-5); Lymphocyte # 1.01 X10^3/ul (4.0); Lymphocyte % 20.5 % (19-41); Mean Corp Hgb Conc 31.3 g/dL (32-36); Mean Corpuscular Hgb 28.5 pg (27.0-32.0); Mean Corpuscular Volume 91.2 fL (81-99); Mean Platelet Vol. 10.3 fl (6.2-12.0); Monocyte# 0.46 X10^3/uL; Monocyte% 9.3 % (0-10); NRBC Flagged by Analyzer 0 % (0-5); Neutrophil # 3.22 X10^3/uL (2.7-7.7); Neutrophil % 65.5 % (47-70); Platelet Count 234 K/mm3 (150-450); RBC Distribution Width SD 60.4 fl (35.1-43.9); Red Blood Count 3.51 M/mm3 (4.2-5.4); White Blood Count 4.9 K/mm3 (4.4-11.0)
[2019-02-20 09:02] LABS: Anion Gap 8 (5-15); BUN 31 mg/dL (7-18); BUN/Creat Ratio 8.4 RATIO (10-20); Calcium,Total 8.4 mg/dL (8.5-10.1); Chloride 97 mmol/L (98-107); Creatinine, Serum 3.69 mg/dL (0.55-1.02); EST Glomerular Filtration Rate 13 mL/min (>60); Est Glom Filt Rate - Afr Amer 16 mL/min (>60); Estimated Creatinine Clearance 12.39 ml/min; Glucose 216 mg/dL (74-106); Potassium 3.6 mmol/L (3.5-5.1); Sodium Level 135 mmol/L (136-145)
--- NOTE | 2019-02-20 09:31 | CASEMGMT ---
DESTINEE called pt's case loader operator, Elena Casanova from [facility] ([phone]--cell, --work, --fax). DESTINEE let Elena know that pt came back in from dialysis w/chest pain. She will send [place] an email to let them know. DESTINEE will continue to follow. JERRY Lorenzo
--- NOTE | 2019-02-20 09:45 | EKG12_ITS ---
Test Reason : AM EKG Blood Pressure : / mmHG Vent. Rate : 061 BPM Atrial Rate : 061 BPM P-R Int : 170 ms QRS Dur : 098 ms QT Int : 502 ms P-R-T Axes : 054 -55 153 degrees QTc Int : 505 ms Normal sinus rhythm Possible Left atrial enlargement Left anterior fascicular block Left ventricular hypertrophy ST & T wave abnormality, consider lateral ischemia Prolonged QT Abnormal ECG Confirmed by KELVIN ZARAGOZA, JOCELYNE ([id number]), legal editor MYRIAM PEREZ ([id number]) on 02/26/2019 11:21:16 AM Referred By: Mikal Rene Confirmed By:JOCELYNE WARREN MD
[2019-02-20 10:06] LABS: ACT Activated Clotting Time 197 sec (74-137)
[2019-02-20 10:06] LABS: ACT Activated Clotting Time 235 sec (74-137)
[2019-02-20 11:01] LABS: ACT Activated Clotting Time 164 sec (74-137)
--- NOTE | 2019-02-20 11:09 | CRPHASE1_ITS ---
Patient Communication Former Patient:: Phase I - 02/18/19, Phase II PHII Cardiac Rehab Discussed with Patient:: Yes - done previously Guide to Cardiac Rehab Given to Patient:: Yes - done previously Cardiac Rehab Facility Choice List Given to Patient:: Yes - done previously, [facility] Choice Program [facility] CR PHII:: Communication Given to CR, Refer to [facility] - [facility] Coin Teller:: Freddie Huang Phase II Cardiac Rehab:: Yes Sessions:: 36 sessions - 3 days/wk, 12 weeks Phase I Charge:: Level I - Education - Pt former CR PH I 02/18/19 and former PH II CR. Risk Factors/Lifestyle Family History: Family History (Last Reviewed 11/15/18 @ 15:51 by Dixon Estrella DO) Father Heart disease Hypertension Prostate cancer Mother Hypertension Cardiac Rehabilitation Info Cardiac Rehabilitation Program Information: Cardiac Rehabilitation is important for patients like you who are recovering from a heart problem. Cardiac rehabilitation programs are recognized as integral to the continued care of the patient with coronary heart disease. The cardiac rehabilitation program is designed to optimize a patient's physical, psychological, and social functioning. Health post acute care registered nurse work in cardiac rehabilitation programs and assist you with getting the treatments you need to get stronger and healthier - like exercise, healthy eating habits, and medications. Cardiac rehabilitation has been show to help people with heart problems live longer and have better life enjoyment than people who do not go to cardiac rehabilitation. Please contact the Cardiac Rehabilitation Program at [facility] at in two weeks if you have not heard from them.
--- NOTE | 2019-02-20 11:15 | CRPH1.INSTRU ---
General Education CAD and cardiac anatomy and function:: Patient communicates acknowledgment, Not instructed - Pt former CR PH I 02/18/19 and former PH II CR.
--- NOTE | 2019-02-20 12:03 | PCM.HP.STD ---
History of Present Illness Date of Admission: 02/20/19 Chief Complaint: Chest pain The patient is a 58 year old F with a PMH as below who presents from dialysis today with chest pain. She was discharged yesterday after having had 2 stents placed in the RCA. She was discharged home chest pain-free and went to dialysis this morning where she developed chest pain. She came to the ER where she was found to have ST elevations in V1 and V2 with ST depressions in the lateral leads. She was taken to straight to Underwater Photographer today where her 2 stents were found to be patent however the distal RCA was small though it did have blood flow. A third stent was placed which provided improvement in blood flow. Troponin today on admission was 4.08 and on her previous admission a peaked at 1.890. She currently denies any chest pain or shortness of breath. Past Medical History Past Medical History (Chronic Problems): Chronic Problems (Last Reviewed 11/15/18 @ 15:51 by Dixon Estrella DO) Chronic kidney disease with end stage renal failure on dialysis (Chronic) History of non-ST elevation myocardial infarction (NSTEMI) (Chronic) Nonrheumatic mitral (valve) insufficiency (Chronic) Secondary pulmonary arterial hypertension (Chronic) Aortocoronary bypass status (Chronic 06/25/14) CABG x3- KINCAID-LAD, SVG-CX, SVG-RCA 06/25/14 @ [facility] Chronic diastolic (congestive) heart failure (Chronic) 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) CABG x3- KINCAID-LAD, SVG-CX, SVG-RCA 06/25/14 @ [facility] AV fistula (Chronic) Morbid obesity (Chronic) Diabetes mellitus type 2 in obese (Chronic) End-stage renal disease on hemodialysis (Chronic) Hypertension (Chronic) HLD (hyperlipidemia) (Chronic) COPD (chronic obstructive pulmonary disease) (Chronic) CLAUDIO (obstructive sleep apnea) (Chronic) 17/11 cmH2O Hypokalemia (Chronic) Secondary hyperparathyroidism of renal origin (Chronic) Medical History: Medical History (Last Reviewed 11/15/18 @ 15:51 by Dixon Estrella DO) History of non-ST elevation myocardial infarction (NSTEMI) (Chronic) I25.2 Nonrheumatic mitral (valve) insufficiency (Chronic) I34.0 Secondary pulmonary arterial hypertension (Chronic) I27.21 Chronic diastolic (congestive) heart failure (Chronic) I50.32 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) I25.728 CABG x3- KINCAID-LAD, SVG-CX, SVG-RCA 06/25/14 @ [facility] NSTEMI (non-ST elevated myocardial infarction) (Resolved) I21.4 AV fistula (Chronic) I77.0 Morbid obesity (Chronic) E66.01 Diabetes mellitus type 2 in obese (Chronic) E11.9, E66.9 End-stage renal disease on hemodialysis (Chronic) N18.6, Z99.2 Hypertension (Chronic) I10 HLD (hyperlipidemia) (Chronic) E78.5 COPD (chronic obstructive pulmonary disease) (Chronic) J44.9 CLAUDIO (obstructive sleep apnea) (Chronic) G47.33 17/11 cmH2O Hypokalemia (Chronic) E87.6 Secondary hyperparathyroidism of renal origin (Chronic) N25.81 Anemia in chronic renal disease N18.9, D63.1 DDD (degenerative disc disease) Diabetic retinopathy E11.319 GERD (gastroesophageal reflux disease) K21.9 Glaucoma H40.9 Abnormal stress test (Resolved) R94.39 Acute respiratory failure with hypoxemia (Resolved) J96.01 Acute respiratory failure with hypoxia (Resolved) J96.01 Arteriovenous fistula stenosis (Resolved) T82.858A COPD with acute exacerbation (Resolved) J44.1 History of hysterectomy Z90.710 Non-ST elevation IL (NSTEMI) (Resolved) I21.4 Cardiomegaly (Inactive) I51.7 Allergies lisinopril Allergy (Verified 02/18/19 00:24) Unknown ranitidine HCl [From Zantac] Allergy (Verified 02/18/19 00:24) Hives azithromycin Adverse Reaction (Verified 02/18/19 00:24) Nausea/Vom/Diarrhea Home Medications: Ambulatory Orders Medication Instructions Recorded Aspirin [Aspirin, Baby] 81 mg PO DAILY@0800 06/07/17 Atorvastatin Calcium [Lipitor] 80 mg PO QHS 06/07/17 Famotidine [Pepcid] 40 mg PO DAILY 06/07/17 Gabapentin [Neurontin] 300 mg PO QHS 06/07/17 Pyridoxine HCl (Vitamin B6) [B-6] 100 mg PO DAILY 06/07/17 Sennosides [Senna] 8.6 mg PO QHS PRN 06/07/17 ergocalciferol (vitamin D2) 50,000 50,000 unit PO QMONTH cap 08/01/17 unit capsule isosorbide mononitrate ER 60 mg 60 mg PO BID #180 tab 02/04/18 tablet,extended release 24 hr clopidogrel 75 mg tablet 75 mg PO DAILY #30 tab 04/04/18 ranolazine ER 500 mg 500 mg PO BID #180 tab 06/03/18 tablet,extended release,12 hr Citalopram Hydrobromide 20 mg PO DAILY 11/15/18 [Citalopram HBr] Folic Acid/Vitamin B Comp W-C 1 cap PO DAILY 11/15/18 [Nephrocaps, Renaphro] Timolol 0.5% [Timoptic] 1 drp RIGHT EYE BID 11/15/18 Albuterol Inhaler [Ventolin Hfa] 1 puff INHALATION Q6H PRN PRN #1 11/19/18 inhaler Carvedilol [Coreg] 12.5 mg PO BID #30 tab 11/19/18 Insulin Glargine,Hum.rec.anlog 20 unit SQ DAILY #0 11/19/18 [Toujeo Solostar] Surgical History: Surgical History (Last Updated 02/18/19 @ 11:15 by Anel Cesar) Postsurgical percutaneous transluminal coronary angioplasty (PTCA) status (Resolved) Onset Date: 02/18/19 Z98.61 PCI w/PTCA of the distal anastomotic site of the SVG to OM 06/12/17 x 8 NC Balloon 02/18/2019:Widely patent SVG to OM with well healed distal SVG anastomitic site from previous PCI/POBA. Successful PTCA/MIGUEL distal RCA with a 2.25 x 16 Promus Synergy, 75%-->0%, no dissection. Pt had identical chest pressure during stent deployment. Successful PTCA/MIGUEL Proximal RCA with a 2.5 x 20 Promus Synergy, post dilated throughout with a 2.5 Aortocoronary bypass status (Chronic) Onset Date: 06/25/14 Z95.1 CABG x3- KINCAID-LAD, SVG-CX, SVG-RCA 06/25/14 @ [facility] AVF placement Onset Date: ~07/01/15 angioplasty of artriovenous fistula History of back surgery Z98.890 History of cataract surgery Z98.49 Surgical History: angioplasty, cataract, coronary bypass surgery - CABG x 3., hysterectomy, - - AVF placement, back surgery. 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 ENGINEER AUTOMOTIVE history Smoking Status: Former smoker - *Family History Paternal Family History: Family History (Last Reviewed 11/15/18 @ 15:51 by Dixon Estrella DO) Father Heart disease Hypertension Prostate cancer Mother Hypertension History Items: Cancer - prostate, Heart Disease, Hypertension Sibling Family History: Family History (Last Reviewed 11/15/18 @ 15:51 by Dixon Estrella DO) Father Heart disease Hypertension Prostate cancer Mother Hypertension History Items: Diabetes Maternal Family History: Family History (Last Reviewed 11/15/18 @ 15:51 by Dixon Estrella DO) Father Heart disease Hypertension Prostate cancer Mother Hypertension History Items: Hypertension Review of Systems Constitutional: Denies: Chills, Fever, Weight Change HEENT: Denies: Head Aches, Sinus Congestion, Sinus Drainage Cardiovascular: Reports: Chest Pain. Denies: Palpitations Respiratory: Denies: Cough, Shortness of breath at rest, Sputum production Gastrointestinal: Denies: Abdominal Pain, Nausea, Vomiting Genitourinary: Denies: Dysuria Musculoskeletal: Denies: Joint Pain, Joint Tenderness Skin: Denies: Rash, Wounds Neurological: Denies: Numbness, Tingling, Focal weakness Psychiatric: Denies: Anxiety, Depression, Homicidal Ideations, Suicidal Ideations Hematologic/ Lymphatic: Denies: Easy Bruising, Easy Bleeding VTE Information - Inpt Only VTE Present on Admission: No - Physical Exam Vitals/I&O's: Vital Signs Temp Pulse Resp BP Pulse Ox 98.6 F 71 15 127/64 H 99 02/20/19 08:06 02/20/19 11:50 02/20/19 11:00 02/20/19 11:50 02/20/19 11:00 Oxygen Flow Rate (L/min) 2 Oxygen Delivery Method Nasal Cannula Weight: 206 lb 2.115 oz Body Mass Index (BMI) 38.9 Finger Stick Blood Glucose 275 Intake and Output for Last 24 Hours 02/18/19 02/19/19 02/20/19 23:59 23:59 23:59 Intake Total 297.5 / 297.5 Balance 297.5 / 297.5 General: Alert, Oriented x3, Cooperative, No apparent distress HEENT: Atraumatic, PERRLA, EOMI, Normocephalic Oral: Moist Mucosa Neck: Supple, No JVD Lungs: Clear to auscultation, Normal air movement, No rhonchi, No wheeze, No rales Cardiovascular: Regular rate, Regular Rhythm, Normal S1, Normal S2, No murmurs Abdomen: Soft, Non Tender, Non-Distended, No Hepato-splenomegaly, Obese Extremities: No edema, Capillary Refill Less than 3 Seconds Skin: No rashes, No breakdown Neurological: Neuro grossly intact, Sensory exam intact to light touch and pain Psych/Mental Status: Normal Affect, Appropriate Laboratory Results 02/20/19 08:31: WBC 4.9, RBC 3.51 L, Hgb 10.0 L, Hct 32.0 L, MCV 91.2, MCH 28.5, MCHC 31.3 L, RDW Std Deviation 60.4 H, RDW Coeff of Lauren 18.0 H, Plt Count 234, MPV 10.3, Immature Gran % (Auto) 0.200, Neut % (Auto) 65.5, Lymph % (Auto) 20.5, Elk % (Auto) 9.3, Eos % (Auto) 3.7, Baso % (Auto) 0.8, Absolute Neuts (auto) 3.2, Absolute Lymphs (auto) 1.01, Nucleated RBC % 0 02/20/19 08:31: Sodium 135 L, Potassium 3.6, Chloride 97 L, Carbon Dioxide 30.0, Anion Gap 8, BUN 31 H, Creatinine 3.69 H, Estim Creat Clear Calc 12.39, Est GFR (MDRD) Af Amer 16 L, Est GFR (MDRD) Non-Af 13 L, BUN/Creatinine Ratio 8.4 L, Glucose 216 H, Calcium 8.4 L, Troponin I 4.080 H* 02/20/19 08:47: Activated Clotting Time 235 H 02/20/19 09:27: Activated Clotting Time 197 H 02/20/19 10:49: Activated Clotting Time 164 H Current Medications Acetaminophen (Tylenol) 650 mg PO Q6H PRN PRN PRN Reason: Pain Score 1-3/10 Albuterol Sulfate (Ventolin Aerosols) 2.5 mg INHALATION Q6H PRN PRN PRN Reason: SOB/WHEEZING Aspirin (Aspirin, Baby) 81 mg PO DAILY@0800 [facility] Atorvastatin Calcium (Lipitor) 80 mg PO QHS [facility] Atropine Sulfate () 0.5 mg IV UD PRN PRN Reason: HR <50 bpm Carvedilol (Coreg) 12.5 mg PO BID [facility] Citalopram Hydrobromide (Celexa) 20 mg PO DAILY [facility] Clopidogrel Bisulfate (Plavix) 75 mg PO DAILY [facility] Diazepam (Valium) 5 mg PO Q6H PRN PRN PRN Reason: BACK SPASMS/ANXIETY Ergocalciferol (Vitamin D) 50,000 unit PO QMONTH [facility] Famotidine (Pepcid) 20 mg PO DAILY [facility] Gabapentin (Neurontin) 300 mg PO QHS [facility] Heparin Sodium (Beef Lung) (Heparin 500 Unit/5 Ml (100/Ml)) 500 unit IV UD PRN PRN Reason: HEPARIN FLUSH Hydralazine HCl (Apresoline) 10 mg PO BID [facility] Sodium Chloride () 1,000 mls @ 150 mls/hr IV .Q6H40M [facility] Last Infusion: 02/20/19 10:34 Dose: 150 mls/hr Documented by: Insulin Glargine (Lantus (Bkc)) 20 units SC DAILY [facility] Isosorbide Mononitrate (Imdur) 60 mg PO BID [facility] Labetalol HCl (Trandate) 5 mg IV X1 PRN PRN Reason: SBP > 160 when pulling sheath Metoclopramide HCl (Reglan) 5 mg IV Q6H PRN PRN PRN Reason: NAUSEA/VOMITING Morphine Sulfate () 2 mg IV Q4H PRN PRN PRN Reason: Mild back pain (0-2/10) Multivit/Ca Carb/B Cmplx/FA/Prenat (Nephrocaps, Renaphro) 1 capsule PO DAILY [facility] Nitroglycerin (Nitrostat) 0.4 mg SUBLINGUAL Q5M PRN PRN Reason: CARDIAC/CHEST PAIN Pyridoxine HCl (Vitamin B-6) 100 mg PO DAILY [facility] Ranolazine (Ranexa) 500 mg PO BID [facility] Senna (Senokot) 1 tablet PO QHS PRN PRN Reason: Constipation Sodium Chloride () 500 ml IV BOLUS PRN PRN Reason: VASO-VAGAL PROTOCOL Sodium Chloride () 10 - 40 ml IV UD PRN PRN Reason: SALINE FLUSH Timolol Maleate (Timoptic) 1 drop RIGHT EYE BID [facility] Assessment/Plan All Active Problems (Last Reviewed 11/15/18 @ 15:51 by Dixon Estrella DO) Sepsis due to pneumonia (Acute) Healthcare-associated pneumonia (Acute) Hyponatremia (Acute) Hyperglycemia due to type 2 diabetes mellitus (Acute) Chest pain (Acute) Postsurgical percutaneous transluminal coronary angioplasty (PTCA) status (Resolved 02/18/19) NSTEMI (non-ST elevated myocardial infarction) (Resolved) Abnormal stress test (Resolved) Acute respiratory failure with hypoxemia (Resolved) Acute respiratory failure with hypoxia (Resolved) Arteriovenous fistula stenosis (Resolved) COPD with acute exacerbation (Resolved) Non-ST elevation IL (NSTEMI) (Resolved) 1. Chest pain with STEMI/CAD status post CABG and stents/HTN/HLD/chronic diastolic CHF -She received her third stent in 2 days to RCA, continue with aspirin and Plavix -Continue with Coreg, Lipitor, isosorbide mononitrate, and will add hydralazine because of elevated end-diastolic pressures -Continue with Ranexa -Cardiac diet -An echo was performed yesterday prior to discharge with an EF of 45% and stage II diastolic dysfunction, there is mild pulmonary hypertension with RVSP of 38 mmHg 2. ESRD/DM 2/obesity -Consult nephrology for dialysis which she can likely complete this afternoon -We will resume her home insulin dosing but will hold her oral regimen -Accu-Cheks and sliding scale insulin -BMI is 38.9, had lengthy discussions on weight loss and lifestyle changes 3. Chronic COPD/CLAUDIO -Not currently in exacerbation -Continue with home inhalers -Continue with BiPAP at night for her CLAUDIO 4. Anxiety/depression -Stable -Continue with Celexa DVT: SCDs Code Visit Inpatient E&M: 64199 Init Hosp L3
--- NOTE | 2019-02-20 12:23 | CASEMGMT ---
LW/POA forms scanned into summary tab of [facility], Carolina Casanova is listed as medical POA, and real estate attorney Carla Mchugh is listed as alternate. JERRY Lorenzo
--- NOTE | 2019-02-20 12:34 | CASEMGMT ---
ABDIAS CM Readmission Note Previous Admission: 02/18/19-02/19/19 Diagnosis: NSTEMI; placement of 2 stents in microbiological laboratory technician DC Disposition: Home with services through waiver program Current Admission: shortness of breath, returned to microbiological laboratory technician, 1 stent placed. DC PLAN: Return home with waiver aide services. Pt was on Plavix previous admission. Claire ROWLEY RN ACM
[2019-02-20] MEDS: Pyridoxine HCl 100 MG Tablet PO (13:35)
[2019-02-20] MEDS: Citalopram 20 MG Tablet PO (13:36)
[2019-02-20] MEDS: Ranolazine 500 MG Tablet PO ×2 (13:36→21:22)
[2019-02-20] MEDS: Timolol 0.5% 5ML OPTH.BTL 1 DRP RIGHT EYE ×2 (13:36→21:22)
[2019-02-20] MEDS: Folic Acid/Vitamin B Comp W-C 1 Capsule 1 CAP PO (13:36)
[2019-02-20] MEDS: Isosorbide Mononitrate 60 MG Tablet PO ×2 (13:37→21:21)
[2019-02-20] MEDS: Famotidine 20 MG Tablet PO (13:38)
[2019-02-20] MEDS: hydrALAZINE 10 MG Tablet PO ×2 (13:41→21:20)
[2019-02-20 14:16] LABS: Bedside Glucose 284 mg/dL (70-110)
--- NOTE | 2019-02-20 14:17 | CL.I_ITS ---
Patient Name: REHAN COOK Study Date: 02/20/2019 Performing: Freddie Huang MD Ht: 61 inches 155 cm : 1960 Wt: 220.8 lbs 100 kg Age: 58 Gender: female BSA: 1.97 PROCEDURE(S) PERFORMED MA88-VMW/COR/LV/CABG PK98-ULD W OR WO PTCA, SINGLE CORONARY ARTERY CLINICAL PROFILE AND CO-MORBIDITIES Patient presents with NSTEMI for urgent cardiac cath Indications: ACS <= 24 hrs, Stable Known CAD, LV Dysfunction Heart Failure: NYHA Class: 1, Newly Diagnosed: No, Heart Failure Type: Systolic, Heart Failure Ty pe: Diastolic Stress/Imaging Stress/Image Study Performed: No Angina Classification Anginal Classification w/in 2 Weeks: CCS IV CAD Presentations: Unstable angina. Other: Recent PCI/MGIUEL to RCA x 2 days ago with recurrent ches t pain and dynamic ECG changes. Comorbidities/Risk Factors: Hypertension Dyslipidemia Prior CHF Prior PCI Prior CABG Diabetes Mellitus: Diabetes Therapy: Insulin CONCLUSIONS Triple vessel CAD of the LM, LCX LAD and distal RCA. Widely patent recently placed proximal and distal RCA stents. No stent thrombosis. Widely patent KINCAID to LAD. Widely patent SVG to OM#1. Probably signficant distal RCA stenosis not treated on recent PCI due to small vessel caliber and CELENA I III flow. Global LV systolic dysfunction- Moderate LVEF: by LV gram 40 % Depressed Left Ventricular systolic function - Moderate Elevated Left Ventricular End Diastolic Pressure Successful PTCA/MIGUEL distal RCA with a 2.25 x 16 Promus Synergy stent at 8ATM, then inflated to 12 milton in proximal stent to insure proper appoistion with previously placed distal RCA stent. Successful PCI with PTCA to the proximal/ostial RCA to insure that no recently placed stent struts we re crimped during this procedure. Not a true STEMI; Pt had ACS with recent stenting 2 days ago with dynamic ECG changes without overt S T Elevation. RECOMMENDATIONS Referred for immediate PCI Highly recommend quitting all tobacco products Follow up with primary principal law clerk Risk factor modification ASA Indefinitley Plavix for at least 12 months Routine post interventional care Refer for Outpatient Cardiac Rehab Manual sheath removal per protocol Follow up with Dr. Huang Manual sheath removal. Would not pursue PCI of distal SVG to OM anastamosis; previous POBA of distal anastamosis appears to have healed well. Would not pursue PCI of calcified LM for DIAG as this may compromise KINCAID flow. Start hydralazine 10mg po bid for elevated LVEDP. DESCRIPTION OF PROCEDURE The patient arrived to the procedure lab. The risks and benefits of the procedure as well as a full d escription of our services here and lack of surgical backup were fully explained to the patient and/o r their significant other prior to the catheterization. The Timeout was completed, verifying the ayana ect patient and procedure. The patient's procedural site was prepped and draped in the usual fashion. Local anesthetic was given subcutaneously to right groin region with Lidocaine 2%. Using a modified Seldinger technique, arterial access was obtained via the right femoral artery, a 6Fr sheath was inse rted.. Left Coronary Artery selective angiography was performed in multiple views using a 5 Fr. JL 5 catheter. Right Coronary Artery selective angiography was then performed in multiple views using a 6 Fr.. Saphenous Vein graft to the OM selective angiography was performed in multiple views using a 4 Fr. 3DRC catheter. Left Ventriculography was performed in KHOURY projection using a 4 Fr. Pigtail catheter. LV to AO pullback pressures were then recordedThe images were reviewed and options discussed. A decision was then made to proceed with an Intervention, IVUS or other adjunct procedure. Arterial sheath was exchanged for a 6 Fr 45cm Sheath. hs 2 Guide catheter was inserted and engage d into the RCA. runthrough Guide wire was advanced to the RCA. bmw Guide wire was inserted as a mary wire emerege 2.00 x 12 Balloon catheter was advanced across lesion in the right coronary, distal. PT CA balloon inflated at 6 atms for 18 secs. synergy 2.25 x 16 Drug Eluting stent was advanced across t he lesion in the right coronary, distal. Angiogram performed post stent deployment. Angiogram perform ed post balloon dilatation. Arterial sheath was exchanged for a 6 Fr 11 cm Sheath. Contrast was injec latoya through the sheath and the Right Iliac and Femoral artery were assessed for possible closure skyler ce. The arterial sheath was sutured in place and capped CORONARY ANGIOGRAPHY DOMINANCE: Right Dominant LEFT HEART ASSESSMENT Left Ventricular Ejection Fraction: by LV Gram 35-40 % Depressed Left Ventricular systolic function LVEDP: 35 mmHg Elevated Left Ventricular End Diastolic Pressure Global Hypokinesis - Moderate LEFT MAIN: 85 % Stenosis, Moderate calcification LEFT ANTERIOR DESCENDING ARTERY: MID LAD: 85 % Stenosis CIRCUMFLEX ARTERY: 99 % Stenosis RIGHT CORONARY ARTERY: PROX RCA: Previously placed stent is patent DISTAL RCA: Previously placed stent is patent, 75 % Stenosis GRAFTS: KINCAID graft to the LAD is patent. Saphenous Vein graft to the 1st OM is patent INTERVENTION INFORMATION LESION SITE: RCA (Distal) Lesion Complexity: Non-High/Non-C, lesion at bifurcation: No, thrombus present: No, lesion length: 16 mm, culprit lesion: Yes Pre Stenosis: 75 % Pre intervention NITIN flow: 3 PROCEDURE: Drug Eluting Stent with pre dilatation. Post Stenosis: 0 % Post intervention NITIN flow: 3 Lesion Devices: IPDIA 6 Fr HSII 100cm Guide Catheter Terumo .014 Runthrough Extra Floppy 180cm straight Nando Sci EMERGE MR 2.00x12 BALLOON Nando Sci Synergy MR MIGUEL 2.25x16 LESION SITE: RCA (Proximal) Lesion Complexity: Non-High/Non-C Pre Stenosis: 0 % Pre intervention NITIN flow: 3 PROCEDURE: Balloon Angioplasty Post Stenosis: 0 % Post intervention NITIN flow: 3 COMPLICATIONS No Complications PROCEDURE MEDICATIONS Oxygen: 2 L/min via nasal cannula Nitro 200 mcg IC 02/20/2019 09:00:35 Nitro 200 mcg IC 02/20/2019 09:00:35 Nitro 200 mcg IC 02/20/2019 09:15:22 SUMMARY OF HEMODYNAMIC DATA Time AIR REST ECG 08:44:12 AO 142/57 (91) SA 08:46:18 LV 126/4, 35 09:26:56 LV 128/6, 38 09:27:03 LVp 128/1, 30 09:27:10 AOp 128/54 (81) 09:27:15 Signed By Freddie Huang MD On 02/20/2019 2:16:37 PM Freddie Huang MD
[2019-02-20] MEDS: Senna Tablet 1 TABLET PO (14:50)
[2019-02-20 18:50] LABS: Bedside Glucose 162 mg/dL (70-110)
--- NOTE | 2019-02-20 18:52 | DIALYSIS ---
hemodialysis completed x 2 hrs. 3K bath. Access via LFA AVF. fluid removal 1000ml. Pt emre well. See HD flowsheet on chart. report to
[2019-02-20] MEDS: Atorvastatin Calcium 80 MG Tablet PO (21:21)
[2019-02-20] MEDS: Gabapentin 300 MG Capsule PO (21:21)
[2019-02-20] MEDS: Carvedilol 12.5 MG Tablet PO (21:24)
[2019-02-20 21:25] LABS: Bedside Glucose 114 mg/dL (70-110)
[2019-02-21] VITALS (21 sets, daily range): BP systolic 96–135; BP diastolic 37–62; PULSE 62–69; RESP 15–20; TEMP 36.9–37.3; O2SAT 92–100
[2019-02-21] MEDS: 0.9% Saline Lock 10 ML Syringe IV (05:46)
[2019-02-21 05:53] LABS: Hematocrit 26.4 % (37-47); Hemoglobin 8.3 g/dL (12.0-15.0); Mean Corp Hgb Conc 31.4 g/dL (32-36); Mean Corpuscular Hgb 29.1 pg (27.0-32.0); Mean Corpuscular Volume 92.6 fL (81-99); Mean Platelet Vol. 10.7 fl (6.2-12.0); Platelet Count 206 K/mm3 (150-450); RBC Distribution Width SD 62.1 fl (35.1-43.9); Red Blood Count 2.85 M/mm3 (4.2-5.4); White Blood Count 6.9 K/mm3 (4.4-11.0)
[2019-02-21 06:11] LABS: ALB/GLOB Ratio 0.7 RATIO (0.9-2.4); AST(SGOT) 61 U/L (15-37); Alanine Aminotransfer ALT/SGPT 26 U/L (13-56); Albumin, Serum 2.6 g/dL (3.2-5.0); Alkaline Phosphatase 78 U/L (45-117); Anion Gap 10 (5-15); BUN 25 mg/dL (7-18); BUN/Creat Ratio 6.7 RATIO (10-20); Calcium,Total 8.3 mg/dL (8.5-10.1); Chloride 98 mmol/L (98-107); Creatinine, Serum 3.74 mg/dL (0.55-1.02); EST Glomerular Filtration Rate 13 mL/min (>60); Est Glom Filt Rate - Afr Amer 16 mL/min (>60); Estimated Creatinine Clearance 12.22 ml/min; Globulin 3.7 g/dL (2.2-4.2); Glucose 87 mg/dL (74-106); Potassium 3.8 mmol/L (3.5-5.1); Protein, Total 6.3 g/dL (6.4-8.2); Sodium Level 138 mmol/L (136-145)
[2019-02-21] MEDS: Citalopram 20 MG Tablet PO (09:44)
[2019-02-21] MEDS: Pyridoxine HCl 100 MG Tablet PO (09:44)
[2019-02-21] MEDS: Carvedilol 12.5 MG Tablet PO (09:44)
[2019-02-21] MEDS: Clopidogrel Bisulfate 75 MG Tablet PO (09:44)
[2019-02-21] MEDS: Folic Acid/Vitamin B Comp W-C 1 Capsule 1 CAP PO (09:44)
[2019-02-21] MEDS: Aspirin 81 MG TAB.CHEW PO (09:44)
[2019-02-21] MEDS: Isosorbide Mononitrate 60 MG Tablet PO ×2 (09:45→21:40)
[2019-02-21] MEDS: Famotidine 20 MG Tablet PO (09:46)
[2019-02-21] MEDS: Timolol 0.5% 5ML OPTH.BTL 1 DRP RIGHT EYE ×2 (09:46→21:42)
[2019-02-21] MEDS: Ranolazine 500 MG Tablet PO ×2 (09:46→21:42)
[2019-02-21] MEDS: hydrALAZINE 10 MG Tablet PO (09:54)
--- NOTE | 2019-02-21 09:57 | PN.CARD_ITS ---
<Luisa Sullivan M - Last Filed: 02/21/19 10:45> Subjectve: Pt is a 58 y/o female with a Hx of CAD with bypass surgery in 2014. She received a KINCAID to the LAD, and SVG to the circumflex, and SVG to the RCA. She had an KINCAID to the LAD, SVG to the circumflex, SVG to the RCA. On February 18 she was admitted with unstable angina with and elevated troponin. She underwent successful angioplasty and drug-eluting stenting x2 to her qagan tayagungin right coronary artery. Her previous balloon angioplasty at the distal anastomotic site of a saphenous vein graft to the OM. She was d/c on 02/19. She presented back to the ER yesterday with c/o of CP that were similar to previous, this was noted during dialysis. She underwent an urgent heart cath which demonstrated triple vessel CAD of the LM, LCX LAD and distal RCA. Widely patent recently placed proximal and distal RCA stents. No stent thrombosis.Widely patent KINCADI to LAD. Widely patent SVG to OM#1. Probably signficant distal RCA stenosis not treated on recent PCI due to small vessel caliber and NITIN III flow. She had successful PTCA/MIGUEL distal RCA, Successful PCI with PTCA to the proximal/ostial RCA. She also has a history of Hypertension, diastolic congestive heart failure, renal insufficiency, hyperlipidemia and diabetes. This morning she is complaining of CP that is to the left side of her breast. This has been persistent since she has been here yesterday. It is not the heaviness that she had that brought her in to the emergency room. She also notes that she is short of breath with exertion. She notes that she feels that she needs to use her O2, she is not on O2 at home. She notes that she just does not feel right. Objective: Vital Signs Temp Pulse Resp BP Pulse Ox 98.8 F 69 19 H 130/58 H 100 02/21/19 08:00 02/21/19 09:54 02/21/19 09:00 02/21/19 09:54 02/21/19 09:00 Oxygen Flow Rate (L/min) 2 Oxygen Delivery Method Nasal Cannula Weight: 203 lb 7.787 oz Body Mass Index (BMI) 38.9 Finger Stick Blood Glucose 275 Intake and Output for Last 24 Hours 02/19/19 02/20/1902/21/19 23:59 23:59 23:59 Intake Total 2430.0 / 2430.0 130 / 130 Output Total 1000 / 1000 0 / 0 Balance 1430.0 / 1430 130 / 130 General: Awake, Alert, Oriented x 3 HEENT: Atraumatic, Normocephalic Oral: Moist Mucosa Neck: Supple Lungs: Clear to auscultation Cardiovascular: Regular Rhythm, No Murmurs, No Rubs, No Gallops Abdomen: Bowel Sounds Present, Soft, Non Tender Neurological: No Focal Motor or Sensory Deficit, CN II-XII Intact 02/21/19 05:45: WBC 6.9, RBC 2.85 L, Hgb 8.3 L, Hct 26.4 L, MCV 92.6, MCH 29.1, MCHC 31.4 L, Plt Count 206, MPV 10.7 02/21/19 05:45: Sodium 138, Potassium 3.8, Chloride 98, Carbon Dioxide 30.0, Anion Gap 10, BUN 25 H, Creatinine 3.74 H, Est GFR (MDRD) Af Amer 16 L, Est GFR (MDRD) Non-Af 13 L, BUN/Creatinine Ratio 6.7 L, Glucose 87, Calcium 8.3 L, Total Bilirubin 0.40 Rhythm: EKG: ECHO: February 18, 2019 demonstrated mildly dilated left ventricle with an estimated ejection fraction of 45%, stage II diastolic dysfunction, posterior basal: Mildly hypokinetic, inferior basal: Mildly hypokinetic, bubble contrast study negative for right to left intra-atrial shunt, mild posteriorly directed mitral valve insufficiency, mild tricuspid valve insufficiency, RVSP 38 mmHg, mild pulmonary hypertension when compared to previous echocardiogram LV function has remained the same, RVSP has improved from 56 to 38 mmHg. Stress Test: Cardiac Cath: Triple vessel CAD of the LM, LCX LAD and distal RCA. Widely patent recently placed proximal and distal RCA stents. No stent thrombosis. Widely patent KINCAID to LAD. Widely patent SVG to OM#1. Probably signficant distal RCA stenosis not treated on recent PCI due to small vessel caliber and NITIN III flow. Global LV systolic dysfunction- Moderate LVEF: by LV gram 40 % Depressed Left Ventricular systolic function - Moderate Elevated Left Ventricular End Diastolic Pressure Successful PTCA/MIGUEL distal RCA with a 2.25 x 16 Promus Synergy stent at 8ATM, then inflated to 12 [place] in proximal stent to insure proper appoistion with previously placed distal RCA stent. Successful PCI with PTCA to the proximal/ostial RCA to insure that no recently placed stent struts were crimped during this procedure. Not a true STEMI; Pt had ACS with recent stenting 2 days ago with dynamic ECG changes without overt ST Elevation. PCI: CT Surgery: Holter monitor: EPS: PPM: CXR:Stable bilateral interstitial infiltrates with areas of confluence suggestive of CHF. Chest CT Scan: Medical Necessity - Tobacco Use Smoking Status: Former smoker Assessment/Plan 1: Coronary Artery disease: Pt does not have the chest tightness that she had previous but she still does have chest discomfort that is persistent. Feel that this is likely non cardiac. However would like to continue to maximize her medications, would recommend increasing her coreg to 25 mg BID. If chest pain continues we can consider increasing her hydralazine. She will continue with her Imdur, Ranexa and Plavix. 2: Diastolic heart failure: pt has not been on home O2, as she appears to feel better on her O2, she may need to be evaluated for this prior to D/C. Her CHF did suggest CHF. Her Dialysis may help with these symptoms tomorrow. 3: Hypertension: as above recommend increasing her Coreg. 4: End stage renal disease: nephrology was consulted. 5: DM: managed by hospitalist <Speedy Bean - Last Filed: 02/21/19 19:27> Objective: Vital Signs Temp Pulse Resp BP Pulse Ox 98.4 F 65 16 101/62 96 02/21/19 14:00 02/21/19 14:40 02/21/19 14:00 02/21/19 14:00 02/21/19 14:00 Oxygen Flow Rate (L/min) 2 Oxygen Delivery Method Room Air Weight: 203 lb 7.787 oz Body Mass Index (BMI) 38.9 Finger Stick Blood Glucose 275 Intake and Output for Last 24 Hours 02/19/19 02/20/19 02/21/19 23:59 23:59 23:59 Intake Total 2430.0 / 2430.0 370 / 370 Output Total 1000 / 1000 0 / 0 Balance 1430.0 / 1430 370 / 370 02/21/19 05:45: WBC 6.9, RBC 2.85 L, Hgb 8.3 L, Hct 26.4 L, MCV 92.6, MCH 29.1, MCHC 31.4 L, Plt Count 206, MPV 10.7 02/21/19 05:45: Sodium 138, Potassium 3.8, Chloride 98, Carbon Dioxide 30.0, Anion Gap 10, BUN 25 H, Creatinine 3.74 H, Est GFR (MDRD) Af Amer 16 L, Est GFR (MDRD) Non-Af 13 L, BUN/Creatinine Ratio 6.7 L, Glucose 87, Calcium 8.3 L, Total Bilirubin 0.40 Rhythm: EKG: ECHO: Stress Test: Cardiac Cath: PCI: CT Surgery: Holter monitor: EPS: PPM: CXR: Chest CT Scan: Assessment/Plan Addendum: The patient was independently evaluated and examined. The present time the patient stated she was feeling better overall. She still had an intermittent sense of dyspnea with activity. Her heart rate and blood pressures have fluctuated. Her blood pressures have been intermittently low. Her lungs appear to be clear at this time. Her cardiovascular exam appears to demonstrate a regular rhythm with a normal S1 and S2. Her lower extremities did not demonstrate any obvious ongoing peripheral pitting edema. At the present time she will continue, for her history of CAD, acute coronary syndrome, coronary revascularization therapy, superimposed upon concerns of diastolic mediated CHF, hyperlipidemia, hypertension, diabetes mellitus, and end-stage renal disease on chronic hemodialysis, combined medical management. This will include agents such as aspirin, antiplatelet therapy, nitrates, beta- blockers, afterload reducing agents as tolerated, lipid-lowering agents. She may also need to be considered for additional medical therapy with anticoagulant therapy such as rivaroxaban/Xarelto at 2.5 mg p.o. twice daily. She will need continued outpatient cardiovascular follow-up as well. The patient's case was discussed and reviewed with patient and with MARIA TERESA Suarez.
[2019-02-21 10:01] LABS: Bedside Glucose 164 mg/dL (70-110)
--- NOTE | 2019-02-21 10:18 | CASEMGMT ---
RN JACKSON Note: Intro role of CM to patient. Discussed dc planning needs. Pt has aides 3 hours day during week, but is home alone intermittenly. States she usually sleeps until family returns home. Aides assist with home cleaning and ADL's, meal prep. Pt would like to return home, is agreeable to Home Health for nursing, PT/OT. List reviewed with pt. She has [facility] for Waiver Program and would like to stay affiliated with them. [facility] . Referral faxed to them- Per Alie @ [facility], they will review referral. -Reviewed Home oxygen DME list if home oxygen would be needed. Pt states she prefers [facility]. Script, facesheet and instructions with green sheet on front of chart. -DC PLAN: Anticipate Home with [facility], Waiver program aides and possible Oxygen through [facility]. See Green sheet front of chart. Claire ROWLEY RN ACM
--- NOTE | 2019-02-21 11:00 | CASEMGMT ---
Green sheet with information to call [facility] and pt's briefcase sewer at discharge will be placed on chart. JERRY Lorenzo
--- NOTE | 2019-02-21 11:56 | PN_ITS ---
Subjective: Still with some achy left sided chest pain. Not consistent with her previous cardiac pain, no issues over night Vitals/I&O's: Vital Signs Temp Pulse Resp BP Pulse Ox 98.8 F 66 17 135/56 H 100 02/21/19 08:00 02/21/19 11:15 02/21/19 11:00 02/21/19 11:00 02/21/19 11:00 Oxygen Flow Rate (L/min) 2 Oxygen Delivery Method Room Air Weight: 203 lb 7.787 oz Body Mass Index (BMI) 38.9 Finger Stick Blood Glucose 275 Intake and Output for Last 24 Hours 02/19/19 02/20/19 02/21/19 23:59 23:59 23:59 Intake Total 2430.0 / 2430.0 370 / 370 Output Total 1000 / 1000 0 / 0 Balance 1430.0 / 1430 370 / 370 General: Alert, Oriented x3, Cooperative, No apparent distress HEENT: Atraumatic, PERRLA, EOMI, Normocephalic Oral: Moist Mucosa Neck: Supple, No JVD Lungs: Clear to auscultation, Normal air movement, No rhonchi, No wheeze, No rales Cardiovascular: Regular rate, Regular Rhythm, Normal S1, Normal S2, No murmurs Abdomen: Soft, Non Tender, Non-Distended, No Hepato-splenomegaly, Obese Extremities: No edema, Capillary Refill Less than 3 Seconds Skin: No rashes, No breakdown Neurological: Neuro grossly intact, Sensory exam intact to light touch and pain Psych/Mental Status: Normal Affect, Appropriate Laboratory Results 02/20/19 13:32: POC Glucose 284 H 02/20/19 18:44: POC Glucose 162 H 02/20/19 21:18: POC Glucose 114 H 02/21/19 05:45: WBC 6.9, RBC 2.85 L, Hgb 8.3 L, Hct 26.4 L, MCV 92.6, MCH 29.1, MCHC 31.4 L, RDW Std Deviation 62.1 H, RDW Coeff of Lauren 18.0 H, Plt Count 206, MPV 10.7 02/21/19 05:45: Sodium 138, Potassium 3.8, Chloride 98, Carbon Dioxide 30.0, Anion Gap 10, BUN 25 H, Creatinine 3.74 H, Estim Creat Clear Calc 12.22, Est GFR (MDRD) Af Amer 16 L, Est GFR (MDRD) Non-Af 13 L, BUN/Creatinine Ratio 6.7 L, Glucose 87, Calcium 8.3 L, Total Bilirubin 0.40, AST 61 H, ALT 26, Alkaline Phosphatase 78, Total Protein 6.3 L, Albumin 2.6 L, Globulin 3.7, Albumin/Globulin Ratio 0.7 L 02/21/19 09:42: POC Glucose 164 H Current Medications Acetaminophen (Tylenol) 650 mg PO Q6H PRN PRN PRN Reason: Pain Score 1-3/10 Albuterol Sulfate (Ventolin Aerosols) 2.5 mg INHALATION Q6H PRN PRN PRN Reason: SOB/WHEEZING Aspirin (Aspirin, Baby) 81 mg PO DAILY@0800 [facility] Last Admin: 02/21/19 09:44 Dose: 81 mg Documented by: Atorvastatin Calcium (Lipitor) 80 mg PO QHS [facility] Last Admin: 02/20/19 21:21 Dose: 80 mg Documented by: Atropine Sulfate () 0.5 mg IV UD PRN PRN Reason: HR <50 bpm Carvedilol (Coreg) 25 mg PO BID [facility] Citalopram Hydrobromide (Celexa) 20 mg PO DAILY [facility] Last Admin: 02/21/19 09:44 Dose: 20 mg Documented by: Clopidogrel Bisulfate (Plavix) 75 mg PO DAILY [facility] Last Admin: 02/21/19 09:44 Dose: 75 mg Documented by: Dextrose (D50w Syringe) 0 gm IV X1 PRN; Protocol PRN Reason: Hypoglycemia Diazepam (Valium) 5 mg PO Q6H PRN PRN PRN Reason: BACK SPASMS/ANXIETY Ergocalciferol (Vitamin D) 50,000 unit PO QMONTH [facility] Last Admin: 02/20/19 18:47 Dose: Not Given Documented by: Famotidine (Pepcid) 20 mg PO DAILY [facility] Last Admin: 02/21/19 09:46 Dose: 20 mg Documented by: Gabapentin (Neurontin) 300 mg PO QHS [facility] Last Admin: 02/20/19 21:21 Dose: 300 mg Documented by: Glucagon () 1 mg IM .X1 PRN PRN Reason: Hypoglycemia Heparin Sodium (Beef Lung) (Heparin 500 Unit/5 Ml (100/Ml)) 500 unit IV UD PRN PRN Reason: HEPARIN FLUSH Hydralazine HCl (Apresoline) 10 mg PO BID [facility] Last Admin: 02/21/19 09:54 Dose: 10 mg Documented by: Insulin Glargine (Lantus ([facility])) 20 units SC DAILY [facility] Last Admin: 02/21/19 09:46 Dose: 20 u Documented by: Insulin Human Lispro (Humalog Kwikpen ([facility])) 0 unit SC ACHS [facility]; Protocol Last Admin: 02/21/19 08:44 Dose: Not Given Documented by: Isosorbide Mononitrate (Imdur) 60 mg PO BID [facility] Last Admin: 02/21/19 09:45 Dose: 60 mg Documented by: Labetalol HCl (Trandate) 5 mg IV X1 PRN PRN Reason: SBP > 160 when pulling sheath Metoclopramide HCl (Reglan) 5 mg IV Q6H PRN PRN PRN Reason: NAUSEA/VOMITING Morphine Sulfate () 2 mg IV Q4H PRN PRN PRN Reason: Mild back pain (0-2/10) Multivit/Ca Carb/B Cmplx/FA/Prenat (Nephrocaps, Renaphro) 1 capsule PO DAILY [facility] Last Admin: 02/21/19 09:44 Dose: 1 capsule Documented by: Nitroglycerin (Nitrostat) 0.4 mg SUBLINGUAL Q5M PRN PRN Reason: CARDIAC/CHEST PAIN Nutritional Formula (Nepro Carb Steady) 120 ml PO 4X/DAY [facility] Last Admin: 02/21/19 09:48 Dose: Not Given Documented by: Pyridoxine HCl (Vitamin B-6) 100 mg PO DAILY [facility] Last Admin: 02/21/19 09:44 Dose: 100 mg Documented by: Ranolazine (Ranexa) 500 mg PO BID [facility] Last Admin: 02/21/19 09:46 Dose: 500 mg Documented by: Senna (Senokot) 1 tablet PO QHS PRN PRN Reason: Constipation Last Admin: 02/20/19 14:50 Dose: 1 tablet Documented by: Sodium Chloride () 500 ml IV BOLUS PRN PRN Reason: VASO-VAGAL PROTOCOL Sodium Chloride () 10 - 40 ml IV UD PRN PRN Reason: SALINE FLUSH Last Admin: 02/21/19 05:46 Dose: 10 ml Documented by: Timolol Maleate (Timoptic) 1 drop RIGHT EYE BID [facility] Last Admin: 02/21/19 09:46 Dose: 1 drop Documented by: STROKE Vital Signs/Narrative: Vital Signs Temp Pulse Resp BP BP Pulse Ox 02/21/19 11:15 66 02/21/19 11:00 67 17 135/56 H 100 02/21/19 10:00 68 17 130/51 H 99 02/21/19 09:54 69 130/58 H 02/21/19 09:00 66 19 H 130/58 H 100 02/21/19 08:00 98.8 F 65 19 H 131/59 H 93 Medical Necessity - Tobacco Use Smoking Status: Former smoker Assessment/Plan All Active Problems (Last Reviewed 11/15/18 @ 15:51 by Dixon Estrella DO) Sepsis due to pneumonia (Acute) Healthcare-associated pneumonia (Acute) Hyponatremia (Acute) Hyperglycemia due to type 2 diabetes mellitus (Acute) Chest pain (Acute) Postsurgical percutaneous transluminal coronary angioplasty (PTCA) status (Resolved 02/18/19) NSTEMI (non-ST elevated myocardial infarction) (Resolved) Abnormal stress test (Resolved) Acute respiratory failure with hypoxemia (Resolved) Acute respiratory failure with hypoxia (Resolved) Arteriovenous fistula stenosis (Resolved) COPD with acute exacerbation (Resolved) Non-ST elevation UT (NSTEMI) (Resolved) 1. Chest pain with STEMI/CAD status post CABG and stents/HTN/HLD/chronic diastolic CHF -She received her third stent in 2 days to RCA, continue with aspirin and Plavix -Continue with Lipitor, isosorbide mononitrate, hydralazine, and increase the coreg to 25 mg PO BID -Continue with Ranexa -Cardiac diet -An echo was performed prior to discharge with an EF of 45% and stage II diastolic dysfunction, there is mild pulmonary hypertension with RVSP of 38 mmHg 2. ESRD/DM 2/obesity -Consult nephrology for dialysis which she can likely complete this afternoon -We will resume her home insulin dosing but will hold her oral regimen -Accu-Cheks and sliding scale insulin -BMI is 38.9, had lengthy discussions on weight loss and lifestyle changes 3. Chronic COPD/CLAUDIO -Not currently in exacerbation -Continue with home inhalers -Continue with BiPAP at night for her CLAUDIO 4. Anxiety/depression -Stable -Continue with Celexa DVT: SCDs Code Visit Inpatient E&M: 49163 Subs Hosp L2
[2019-02-21 12:10] LABS: Bedside Glucose 291 mg/dL (70-110)
[2019-02-21] MEDS: Insulin Lispro 100 UNIT/ML INSULN.PEN SC ×2 (12:32→16:14)
--- NOTE | 2019-02-21 13:48 | CASEMGMT ---
RN CM Note: Call received from Ramona @ [facility]. They are able to accept pt. (ramona states they are just verifying insurance and will call if there is a problem, but referral has been accepted.). Claire ROWLEY RN AC
[2019-02-21 16:41] LABS: Bedside Glucose 164 mg/dL (70-110)
[2019-02-21] MEDS: Gabapentin 300 MG Capsule PO (21:39)
[2019-02-21] MEDS: Atorvastatin Calcium 80 MG Tablet PO (21:39)
[2019-02-21] MEDS: Carvedilol 3.125 MG TABLET PO (22:21)
[2019-02-21 23:06] LABS: Bedside Glucose 118 mg/dL (70-110)
[2019-02-22] VITALS (12 sets, daily range): BP systolic 106–140; BP diastolic 46–65; PULSE 61–72; RESP 16–18; TEMP 36.7–37; O2SAT 92–99
[2019-02-22 04:41] LABS: Bedside Glucose 65 mg/dL (70-110)
[2019-02-22 05:44] LABS: Absolute Lymphocyte Count 1.31 X10^3/uL (0.83-4.51); Absolute Neutrophil Count 4.2 X10^3/uL (2.0-7.7); Basophil# 0.03 X10^3/uL; Basophil% 0.4 % (0-1); Eosinophil# 0.27 X10^3/uL; Eosinophils% 3.9 % (0-5); Hematocrit 28.7 % (37-47); Hemoglobin 8.7 g/dL (12.0-15.0); Lymphocyte # 1.31 X10^3/ul (4.0); Lymphocyte % 19.2 % (19-41); Mean Corp Hgb Conc 30.3 g/dL (32-36); Mean Corpuscular Hgb 28.6 pg (27.0-32.0); Mean Corpuscular Volume 94.4 fL (81-99); Mean Platelet Vol. 10.6 fl (6.2-12.0); Monocyte# 0.96 X10^3/uL; NRBC Flagged by Analyzer 0 % (0-5); Neutrophil # 4.23 X10^3/uL (2.7-7.7); Neutrophil % 61.9 % (47-70); Platelet Count 220 K/mm3 (150-450); RBC Distribution Width CV 18.3 % (11.6-14.6); RBC Distribution Width SD 64.1 fl (35.1-43.9); Red Blood Count 3.04 M/mm3 (4.2-5.4); White Blood Count 6.8 K/mm3 (4.4-11.0)
[2019-02-22 06:50] LABS: Bedside Glucose 123 mg/dL (70-110)
--- NOTE | 2019-02-22 08:30 | PCM.PN.BLA ---
Progress Note dialysis today, run on 3K. VSS labs reviewed ESRD HD THS. Follow up at chronic unit Anemia tacos on dialysis unstable angina s/p repeat cath with PCI. cardio following dm2 primary service mgmt htn stable STROKE Vital Signs/Narrative: Vital Signs Pulse Pulse Ox 02/22/19 07:30 99 02/22/19 06:57 61
[2019-02-22 12:50] LABS: Bedside Glucose 195 mg/dL (70-110)
--- NOTE | 2019-02-22 12:54 | DIALYSIS ---
Hemodialysis completed x 3.25 hours. 1500 ml net fluid removed. Patient tolerated treatment well. LFA AVF with clean dry dressings. Verbal report given to ABDIAS Garcia.
--- NOTE | 2019-02-22 13:06 | PCM.PN.CARD ---
Subjectve: The patient is awake and alert. She has completed dialysis. She has not yet been up and ambulating. She states her shortness of breath sensation was somewhat improved prior to starting dialysis. She is curious to see how she will feel later on after she is up and about. She is curious to see whether or not she will continue to require O2 supplements, which, she is currently wearing. She denies any worsening chest discomfort at this time. Objective: Vital Signs Temp Pulse Resp BP Pulse Ox 98.2 F 70 16 140/65 H 98 02/22/19 12:52 02/22/19 12:52 02/22/19 12:52 02/22/19 12:52 02/22/19 09:30 Oxygen Flow Rate (L/min) 2 Oxygen Delivery Method Nasal Cannula Weight: 202 lb 13.204 oz Body Mass Index (BMI) 38.9 Finger Stick Blood Glucose 275 Intake and Output for Last 24 Hours 02/20/19 02/21/19 02/22/19 23:59 23:59 23:59 Intake Total 2430.0 / 2430.0 520 / 520 300 / 300 Output Total 1000 / 1000 0 / 0 1500 / 1500 Balance 1430.0 / 1430 520 / 520 -1200 / -1200 General: Awake, Alert, Oriented x 3, Cooperative, No Acute Distress HEENT: Atraumatic, Normocephalic, PERRL, EOMI, Sclera Non Icteric Oral: Moist Mucosa Neck: Supple, Good ROM Lungs: Clear to auscultation Cardiovascular: Regular Rhythm, Normal S1, Normal S2 Abdomen: Bowel Sounds Present, Soft, Non Tender Extremities: No edema Psych/Mental Status: Appropriate 02/22/19 05:11: WBC 6.8, RBC 3.04 L, Hgb 8.7 L, Hct 28.7 L, MCV 94.4, MCH 28.6, MCHC 30.3 L, Plt Count 220, MPV 10.6, Immature Gran % (Auto) 0.600, Neut % (Auto) 61.9, Lymph % (Auto) 19.2, [place] % (Auto) 14.0 H, Eos % (Auto) 3.9, Baso % (Auto) 0.4, Absolute Neuts (auto) 4.2, Nucleated RBC % 0 Rhythm:Sinus rhythm Medical Necessity - Tobacco Use Smoking Status: Former smoker Assessment/Plan 1. CAD The patient has a history of extensive CAD requiring both CABG and PCI. At the present time she does appear to be symptomatically improved with respect to her chest discomfort. Attempt is being made to optimize her medical regimen. This would include agents such as her aspirin, antiplatelet therapy with Plavix, nitrates, beta-blockers, and lipid-lowering agents. Based upon concerns of her occasional low blood pressure other agents such as afterload reducing agents, or other such agents that may drop her blood pressure, have been placed on hold-at least temporarily. Also, based upon her clinical course, if she was thought to be stable from a cardiovascular standpoint, a noncardiac standpoint with respect to her hemoglobin levels, and any procedure related standpoint, than perhaps she would be considered for additional medical therapy with anticoagulant therapy such as Xarelto at 2.5 mg orally twice daily. 2. Diastolic mediated CHF-chronic She has a history of a diastolic mediated CHF. At the moment she appears without acute symptoms. She is continuing her medical management and her volume support with respect to her chronic hemodialysis therapy. 3. Hyperlipidemia She will continue medical management. 4. Hypertension Her blood pressures are occasionally low. Again her medications are being adjusted to assist with this. Her hemodialysis may play a role in this as well. Hopefully her medication regimen can be adjusted to optimize her cardiovascular medication and minimize hypotension. 5. Diabetes mellitus She will continue evaluation care per her primary care physicians. 6. Chronic renal insufficiency on chronic hemodialysis She will continue her dialysis therapy. She receives this on a Sunday, , Sunday basis. This does help with her volume control. Overall she will continue to be monitored based upon concerns of changes in her vital signs and changes in her medications and her response to the medications superimposed upon her ongoing dialysis. Hopefully a combination of medications/dosages will be found that to assist with her cardiovascular status and minimize any adverse events. Comment: The above was discussed and reviewed with the patient and previously with Dr. Rene. This note was generated using a voice recognition system and there may be incorrect words, spelling or punctuation that were not noted when reviewing the office note prior to saving.
[2019-02-22] MEDS: Aspirin 81 MG TAB.CHEW PO (13:23)
[2019-02-22] MEDS: Citalopram 20 MG Tablet PO (13:23)
[2019-02-22] MEDS: Isosorbide Mononitrate 60 MG Tablet PO ×2 (13:23→21:44)
[2019-02-22] MEDS: Insulin Lispro 100 UNIT/ML INSULN.PEN SC ×3 (13:24→21:43)
[2019-02-22] MEDS: Folic Acid/Vitamin B Comp W-C 1 Capsule 1 CAP PO (13:24)
[2019-02-22] MEDS: Timolol 0.5% 5ML OPTH.BTL 1 DRP RIGHT EYE ×2 (13:24→21:46)
[2019-02-22] MEDS: Clopidogrel Bisulfate 75 MG Tablet PO (13:24)
[2019-02-22] MEDS: Famotidine 20 MG Tablet PO (13:24)
[2019-02-22] MEDS: Pyridoxine HCl 100 MG Tablet PO (13:24)
[2019-02-22] MEDS: Carvedilol 3.125 MG TABLET PO (13:25)
--- NOTE | 2019-02-22 14:21 | PCM.PN.HOSP ---
Subjective: Feels better, still has some issues with dyspnea when walking, but denies any chest pain or pressure. Vitals/I&O's: Vital Signs Temp Pulse Resp BP Pulse Ox 98.5 F 71 18 121/65 H 92 02/22/19 13:18 02/22/19 13:18 02/22/19 13:18 02/22/19 13:18 02/22/19 13:18 Oxygen Flow Rate (L/min) 2 Oxygen Delivery Method Room Air Weight: 202 lb 13.204 oz Body Mass Index (BMI) 38.9 Finger Stick Blood Glucose 275 Intake and Output for Last 24 Hours 02/20/19 02/21/19 02/22/19 23:59 23:59 23:59 Intake Total 2430.0 / 2430.0 520 / 520 300 / 300 Output Total 1000 / 1000 0 / 0 1500 / 1500 Balance 1430.0 / 1430 520 / 520 -1200 / -1200 General: Alert, Oriented x3, Cooperative, No apparent distress HEENT: Atraumatic, PERRLA, EOMI, Normocephalic Oral: Moist Mucosa Neck: Supple, No JVD Lungs: Clear to auscultation, Normal air movement, No rhonchi, No wheeze, No rales Cardiovascular: Regular rate, Regular Rhythm, Normal S1, Normal S2, No murmurs Abdomen: Soft, Non Tender, Non-Distended, No Hepato-splenomegaly, Obese Extremities: No edema, Capillary Refill Less than 3 Seconds Skin: No rashes, No breakdown Neurological: Neuro grossly intact, Sensory exam intact to light touch and pain Psych/Mental Status: Normal Affect, Appropriate Laboratory Results 02/21/19 16:12: POC Glucose 164 H 02/21/19 21:37: POC Glucose 118 H 02/22/19 04:38: POC Glucose 65 L 02/22/19 05:11: WBC 6.8, RBC 3.04 L, Hgb 8.7 L, Hct 28.7 L, MCV 94.4, MCH 28.6, MCHC 30.3 L, RDW Std Deviation 64.1 H, RDW Coeff of Lauren 18.3 H, Plt Count 220, MPV 10.6, Immature Gran % (Auto) 0.600, Neut % (Auto) 61.9, Lymph % (Auto) 19.2, [place] % (Auto) 14.0 H, Eos % (Auto) 3.9, Baso % (Auto) 0.4, Absolute Neuts (auto) 4.2, Absolute Lymphs (auto) 1.31, Nucleated RBC % 0 02/22/19 06:43: POC Glucose 123 H 02/22/19 12:45: POC Glucose 195 H Current Medications Acetaminophen (Tylenol) 650 mg PO Q6H PRN PRN PRN Reason: Pain Score 1-3/10 Albuterol Sulfate (Ventolin Aerosols) 2.5 mg INHALATION Q6H PRN PRN PRN Reason: SOB/WHEEZING Aspirin (Aspirin, Baby) 81 mg PO DAILY@0800 [facility] Last Admin: 02/22/19 13:23 Dose: 81 mg Documented by: Atorvastatin Calcium (Lipitor) 80 mg PO QHS [facility] Last Admin: 02/21/19 21:39 Dose: 80 mg Documented by: Atropine Sulfate () 0.5 mg IV UD PRN PRN Reason: HR <50 bpm Carvedilol (Coreg) 12.5 mg PO BID [facility] Citalopram Hydrobromide (Celexa) 20 mg PO DAILY [facility] Last Admin: 02/22/19 13:23 Dose: 20 mg Documented by: Clopidogrel Bisulfate (Plavix) 75 mg PO DAILY [facility] Last Admin: 02/22/19 13:24 Dose: 75 mg Documented by: Dextrose (D50w Syringe) 0 gm IV X1 PRN; Protocol PRN Reason: Hypoglycemia Diazepam (Valium) 5 mg PO Q6H PRN PRN PRN Reason: BACK SPASMS/ANXIETY Ergocalciferol (Vitamin D) 50,000 unit PO QMONTH [facility] Last Admin: 02/20/19 18:47 Dose: Not Given Documented by: Famotidine (Pepcid) 20 mg PO DAILY [facility] Last Admin: 02/22/19 13:24 Dose: 20 mg Documented by: Gabapentin (Neurontin) 300 mg PO QHS [facility] Last Admin: 02/21/19 21:39 Dose: 300 mg Documented by: Glucagon () 1 mg IM .X1 PRN PRN Reason: Hypoglycemia Heparin Sodium (Beef Lung) (Heparin 500 Unit/5 Ml (100/Ml)) 500 unit IV UD PRN PRN Reason: HEPARIN FLUSH Insulin Glargine (Lantus (Bkc)) 20 units SC DAILY [facility] Last Admin: 02/22/19 09:35 Dose: 20 u Documented by: Insulin Human Lispro (Humalog Kwikpen (Bkc)) 0 unit SC ACHS [facility]; Protocol Last Admin: 02/22/19 13:24 Dose: 2 u Documented by: Isosorbide Mononitrate (Imdur) 60 mg PO BID [facility] Last Admin: 02/22/19 13:23 Dose: 60 mg Documented by: Labetalol HCl (Trandate) 5 mg IV X1 PRN PRN Reason: SBP > 160 when pulling sheath Metoclopramide HCl (Reglan) 5 mg IV Q6H PRN PRN PRN Reason: NAUSEA/VOMITING Morphine Sulfate () 2 mg IV Q4H PRN PRN PRN Reason: Mild back pain (0-210) Multivit/Ca Carb/B Cmplx/FA/Prenat (Nephrocaps, Renaphro) 1 capsule PO DAILY [facility] Last Admin: 02/22/19 13:24 Dose: 1 capsule Documented by: Nitroglycerin (Nitrostat) 0.4 mg SUBLINGUAL Q5M PRN PRN Reason: CARDIAC/CHEST PAIN Nutritional Formula (Nepro Carb Steady) 120 ml PO 4X/DAY [facility] Last Admin: 02/22/19 13:21 Dose: Not Given Documented by: Pyridoxine HCl (Vitamin B-6) 100 mg PO DAILY [facility] Last Admin: 02/22/19 13:24 Dose: 100 mg Documented by: Senna (Senokot) 1 tablet PO QHS PRN PRN Reason: Constipation Last Admin: 02/20/19 14:50 Dose: 1 tablet Documented by: Sodium Chloride () 10 - 40 ml IV UD PRN PRN Reason: SALINE FLUSH Last Admin: 02/21/19 05:46 Dose: 10 ml Documented by: Timolol Maleate (Timoptic) 1 drop RIGHT EYE BID [facility] Last Admin: 02/22/19 13:24 Dose: 1 drop Documented by: STROKE Vital Signs/Narrative: Vital Signs Temp Pulse Resp BP Pulse Ox 02/22/19 13:18 98.5 F 71 18 121/65 H 92 02/22/19 12:52 98.2 F 70 16 140/65 H 02/22/19 10:57 70 Medical Necessity - Tobacco Use Smoking Status: Former smoker Assessment/Plan All Active Problems (Last Reviewed 11/15/18 @ 15:51 by Dixon Estrella DO) Sepsis due to pneumonia (Acute) Healthcare-associated pneumonia (Acute) Hyponatremia (Acute) Hyperglycemia due to type 2 diabetes mellitus (Acute) Chest pain (Acute) Postsurgical percutaneous transluminal coronary angioplasty (PTCA) status (Resolved 02/18/19) NSTEMI (non-ST elevated myocardial infarction) (Resolved) Abnormal stress test (Resolved) Acute respiratory failure with hypoxemia (Resolved) Acute respiratory failure with hypoxia (Resolved) Arteriovenous fistula stenosis (Resolved) COPD with acute exacerbation (Resolved) Non-ST elevation [place] (NSTEMI) (Resolved) 1. Chest pain with STEMI/CAD status post CABG and stents/HTN/HLD/chronic diastolic CHF -She received her third stent in 2 days to RCA, continue with aspirin and Plavix -Continue with Lipitor, isosorbide mononitrate, DC hydralazine, and increase the coreg to 12.5 mg PO BID -Continue with Ranexa -Cardiac diet -An echo was performed prior to discharge with an EF of 45% and stage II diastolic dysfunction, there is mild pulmonary hypertension with RVSP of 38 mmHg 2. ESRD/DM 2/obesity -Consult nephrology for dialysis which she can likely complete this afternoon -We will resume her home insulin dosing but will hold her oral regimen -Accu-Cheks and sliding scale insulin -BMI is 38.9, had lengthy discussions on weight loss and lifestyle changes 3. Chronic COPD/CLAUDIO -Not currently in exacerbation -Continue with home inhalers -Continue with BiPAP at night for her CLAUDIO 4. Anxiety/depression -Stable -Continue with Celexa DVT: SCDs Code Visit Inpatient E&M: 75621 Subs Hosp L2
[2019-02-22 17:06] LABS: Bedside Glucose 180 mg/dL (70-110)
[2019-02-22] MEDS: Carvedilol 12.5 MG Tablet PO (21:43)
[2019-02-22] MEDS: Atorvastatin Calcium 80 MG Tablet PO (21:45)
[2019-02-22] MEDS: Gabapentin 300 MG Capsule PO (21:46)
[2019-02-22 22:46] LABS: Bedside Glucose 156 mg/dL (70-110)
[2019-02-23] VITALS (7 sets, daily range): BP systolic 102–133; BP diastolic 52–54; PULSE 63–69; RESP 17–18; TEMP 36.8–36.9; O2SAT 91–97
[2019-02-23 06:34] LABS: Absolute Neutrophil Count 3.5 X10^3/uL (2.0-7.7); Basophil# 0.04 X10^3/uL; Basophil% 0.7 % (0-1); Eosinophil# 0.27 X10^3/uL; Eosinophils% 4.7 % (0-5); Hematocrit 25.8 % (37-47); Hemoglobin 7.6 g/dL (12.0-15.0); Lymphocyte % 20.8 % (19-41); Mean Corp Hgb Conc 29.5 g/dL (32-36); Mean Corpuscular Hgb 28.7 pg (27.0-32.0); Mean Corpuscular Volume 97.4 fL (81-99); Mean Platelet Vol. 11.1 fl (6.2-12.0); Monocyte# 0.76 X10^3/uL; Monocyte% 13.2 % (0-10); NRBC Flagged by Analyzer 0 % (0-5); Neutrophil # 3.47 X10^3/uL (2.7-7.7); Neutrophil % 60.1 % (47-70); POSITIVE MORPHOLOGY YES; Platelet Count 214 K/mm3 (150-450); RBC Distribution Width CV 18.7 % (11.6-14.6); RBC Distribution Width SD 67.4 fl (35.1-43.9); Red Blood Count 2.65 M/mm3 (4.2-5.4); White Blood Count 5.8 K/mm3 (4.4-11.0)
[2019-02-23 06:48] LABS: Anion Gap 9 (5-15); BUN 27 mg/dL (7-18); BUN/Creat Ratio 6.6 RATIO (10-20); Calcium,Total 8.5 mg/dL (8.5-10.1); Chloride 97 mmol/L (98-107); Creatinine, Serum 4.12 mg/dL (0.55-1.02); EST Glomerular Filtration Rate 12 mL/min (>60); Est Glom Filt Rate - Afr Amer 14 mL/min (>60); Estimated Creatinine Clearance 11.09 ml/min; Glucose 145 mg/dL (74-106); Potassium 4.1 mmol/L (3.5-5.1); Sodium Level 135 mmol/L (136-145)
[2019-02-23 06:58] LABS: Differential Indicated SCAN CRITERIA MET
[2019-02-23 07:46] LABS: Bedside Glucose 138 mg/dL (70-110)
[2019-02-23 08:17] LABS: Anisocytosis 2+; Differential Comment SCANNED; Macrocytosis 1+; Microcytosis 1+
[2019-02-23] MEDS: Aspirin 81 MG TAB.CHEW PO (09:23)
[2019-02-23] MEDS: Citalopram 20 MG Tablet PO (09:23)
[2019-02-23] MEDS: Famotidine 20 MG Tablet PO (09:24)
[2019-02-23] MEDS: Carvedilol 12.5 MG Tablet PO (09:24)
[2019-02-23] MEDS: Isosorbide Mononitrate 60 MG Tablet PO (09:24)
[2019-02-23] MEDS: Clopidogrel Bisulfate 75 MG Tablet PO (09:24)
[2019-02-23] MEDS: Folic Acid/Vitamin B Comp W-C 1 Capsule 1 CAP PO (09:24)
[2019-02-23] MEDS: Pyridoxine HCl 100 MG Tablet PO (09:25)
[2019-02-23] MEDS: Timolol 0.5% 5ML OPTH.BTL 1 DRP RIGHT EYE (09:25)
--- NOTE | 2019-02-23 09:31 | PCM.PN.CARD ---
Subjectve: The patient is awake and alert. She states overall she believes she is feeling better. She has been up and ambulating. She is not complaining of the marked shortness of breath/dyspnea that she had. Objective: Vital Signs Temp Pulse Resp BP Pulse Ox 98.4 F 69 17 133/52 H 97 02/23/19 09:15 02/23/19 09:15 02/23/19 09:15 02/23/19 09:15 02/23/19 09:15 Oxygen Flow Rate (L/min) 2 Oxygen Delivery Method Room Air Weight: 204 lb 2.369 oz Body Mass Index (BMI) 38.9 Finger Stick Blood Glucose 275 Intake and Output for Last 24 Hours 02/21/19 02/22/19 02/23/19 23:59 23:59 22:59 Intake Total 520 / 520 570 / 570 110 / 110 Output Total 0 / 0 1500 / 1500 0 / 0 Balance 520 / 520 -930 / -930 110 / 110 General: Awake, Alert, Oriented x 3, Cooperative, No Acute Distress HEENT: Atraumatic, Normocephalic, PERRL, EOMI, Sclera Non Icteric Oral: Moist Mucosa Neck: Supple, Good ROM, No JVD Lungs: Clear to auscultation Cardiovascular: Regular Rhythm, Normal S1, Normal S2 Abdomen: Bowel Sounds Present, Soft, Non Tender Extremities: No edema Neurological: No Focal Motor or Sensory Deficit Psych/Mental Status: Appropriate 02/23/19 05:46: WBC 5.8, RBC 2.65 L, Hgb 7.6 L, Hct 25.8 L, MCV 97.4, MCH 28.7, MCHC 29.5 L, Plt Count 214, MPV 11.1, Immature Gran % (Auto) 0.500, Neut % (Auto) 60.1, Lymph % (Auto) 20.8, [place] % (Auto) 13.2 H, Eos % (Auto) 4.7, Baso % (Auto) 0.7, Absolute Neuts (auto) 3.5, Nucleated RBC % 0 02/23/19 05:46: Sodium 135 L, Potassium 4.1, Chloride 97 L, Carbon Dioxide 29.0, Anion Gap 9, BUN 27 H, Creatinine 4.12 H, Est GFR (MDRD) Af Amer 14 L, Est GFR (MDRD) Non-Af 12 L, BUN/Creatinine Ratio 6.6 L, Glucose 145 H, Calcium 8.5 Rhythm: Sinus rhythm Medical Necessity - Tobacco Use Smoking Status: Former smoker Assessment/Plan 1. CAD The patient has a history of extensive CAD requiring both CABG and PCI. At the present time she does appear to be symptomatically improved with respect to her chest discomfort. At the moment she appears to be tolerating her aspirin, clopidogrel, nitrates, blockers, and her lipid-lowering medications. Also, based upon her clinical course, if she was thought to be stable from a cardiovascular standpoint, a noncardiac standpoint with respect to her hemoglobin levels, and any procedure related standpoint, than perhaps she would be considered for additional medical therapy with anticoagulant therapy such as Xarelto at 2.5 mg orally twice daily. However, at the moment, her hemoglobin level has decreased following her dialysis yesterday. Thus there may be some hesitancy in initiating this type of therapy at this time. 2. Diastolic mediated CHF-chronic She has a history of a diastolic mediated CHF. At the moment she appears without acute symptoms. She is continuing her medical management and her volume support with respect to her chronic hemodialysis therapy. 3. Hyperlipidemia She will continue medical management. 4. Hypertension Her blood pressures are occasionally low. Again her medications are being adjusted to assist with this. Her hemodialysis may play a role in this as well. Hopefully her medication regimen can be adjusted to optimize her cardiovascular medication and minimize hypotension. 5. Diabetes mellitus She will continue evaluation care per her primary care physicians. 6. Chronic renal insufficiency on chronic hemodialysis She will continue her dialysis therapy. She receives this on a Sunday, , Sunday basis. This does help with her volume control. She notes that she did have some dialysis site related hemorrhage yesterday that had to be controlled by direct pressure by the dialysis nurse. It is unclear as to whether this, in combination with dialysis, led to her somewhat low her hemoglobin this day. Depending upon her clinical course she may need PRBCs return to her during a future dialysis episode to increase her H&H and her oxygen carrying capacity. Overall, at the moment, from a cardiovascular standpoint, she is going to continue her current medical regimen as she appears to be tolerating it well and appears to be symptomatically improved without ongoing acute cardiovascular events. There are no additional cardiac diagnostic studies scheduled for her at this time. She will need continued outpatient cardiovascular follow-up with her primary reservations sales supervisor Dr. Huang. Comment: The above was discussed and reviewed with the patient. This note was generated using a voice recognition system and there may be incorrect words, spelling or punctuation that were not noted when reviewing the office note prior to saving.
--- NOTE | 2019-02-23 11:07 | DCINST_ITS ---
You will use the following diet at home:: Cardiac Your food should be the consistency of: Regular Your liquids should be the consistency of: Regular/Thin Discharge Activity: Return to Normal Activity Call your doctor if you observe: Fever of 101 or Higher, Shortness of breath, Dizziness, Fainting spells, Swelling in the ankles, Chest pain, Increased palpitations (irregular heartbeat) Additional Instructions: Recheck a CBC on Saturday 02/24, you need a transfusion during dialysis on sunday Allergies/Adverse Reactions: Allergies lisinopril Allergy (Verified 02/18/19 00:24) Unknown ranitidine HCl [From Zantac] Allergy (Verified 02/18/19 00:24) Hives azithromycin Adverse Reaction (Verified 02/18/19 00:24) Nausea/Vom/Diarrhea Medications to take at Discharge Aspirin [Aspirin, Baby] 81 mg PO DAILY@0800 06/07/17 Atorvastatin Calcium [Lipitor] 80 mg PO QHS 06/07/17 Famotidine [Pepcid] 40 mg PO DAILY 06/07/17 Gabapentin [Neurontin] 300 mg PO QHS 06/07/17 Pyridoxine HCl (Vitamin B6) [B-6] 100 mg PO DAILY 06/07/17 Sennosides [Senna] 8.6 mg PO QHS PRN 06/07/17 ergocalciferol (vitamin D2) 50,000 unit capsule 50,000 unit PO QMONTH cap 08/01/17 isosorbide mononitrate ER 60 mg tablet,extended release 24 hr 60 mg PO BID #180 tab 02/04/18 clopidogrel 75 mg tablet 75 mg PO DAILY #30 tab 04/04/18 Citalopram Hydrobromide [Citalopram HBr] 20 mg PO DAILY 11/15/18 Folic Acid/Vitamin B Comp W-C [Nephrocaps, Renaphro] 1 cap PO DAILY 11/15/18 Timolol 0.5% [Timoptic] 1 drp RIGHT EYE BID 11/15/18 Albuterol Inhaler [Ventolin Hfa] 1 puff INHALATION Q6H PRN PRN #1 inhaler 0 11/19/18 Carvedilol [Coreg] 12.5 mg PO BID #30 tab 11/19/18 Insulin Glargine,Hum.rec.anlog [Toujeo Solostar] 20 unit SQ DAILY #0 11/19/18 Primary Care Physician: Brayden King Chi, MD [Primary Care Provider] - Please follow up with your Primary Care Physician in: 3-5 days Test Results: Test results from this visit will be discussed in further detail at your follow- up appointment, if applicable. Please Follow Up With: Freddie Huang MD When: 1-2 weeks
--- NOTE | 2019-02-23 11:26 | PCA ---
Addendum entered by Monik Linares 02/23/19 11:54: [facility] called back and said they will resume care tomorrow and they will call pt today or tomorrow morning to talk with her. Original Note: Faxed D/C paperwork to; [facility] , and to [facility] . Spoke with [facility] and notified them of D/C, spoke with a gentleman at [facility] and notified them of D/C, and left a message with about discharge.
[2019-02-23] MEDS: Insulin Lispro 100 UNIT/ML INSULN.PEN SC (11:28)
[2019-02-23 11:36] LABS: Bedside Glucose 308 mg/dL (70-110)
--- NOTE | 2019-02-23 12:14 | PCM.DC.SUM ---
Discharge Date and Diagnosis Date of Admission: 02/20/19 Date of Discharge: 02/23/19 - Secondary Discharge Diagnosis Chronic Problems (Last Reviewed 11/15/18 @ 15:51 by Dixon Estrella DO) Chronic kidney disease with end stage renal failure on dialysis (Chronic) History of non-ST elevation myocardial infarction (NSTEMI) (Chronic) Nonrheumatic mitral (valve) insufficiency (Chronic) Secondary pulmonary arterial hypertension (Chronic) Aortocoronary bypass status (Chronic 06/25/14) CABG x3- KINCAID-LAD, SVG-CX, SVG-RCA 06/25/14 @ [facility] Chronic diastolic (congestive) heart failure (Chronic) 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) CABG x3- KINCAID-LAD, SVG-CX, SVG-RCA 06/25/14 @ [facility] AV fistula (Chronic) Morbid obesity (Chronic) Diabetes mellitus type 2 in obese (Chronic) End-stage renal disease on hemodialysis (Chronic) Hypertension (Chronic) HLD (hyperlipidemia) (Chronic) COPD (chronic obstructive pulmonary disease) (Chronic) CLAUDIO (obstructive sleep apnea) (Chronic) 17/11 cmH2O Hypokalemia (Chronic) Secondary hyperparathyroidism of renal origin (Chronic) Hospital Course and Treatment Imaging Results: CXR: IMPRESSION: Stable bilateral interstitial infiltrates with areas of confluence suggestive of CHF. Cath: CONCLUSIONS Triple vessel CAD of the LM, LCX LAD and distal RCA. Widely patent recently placed proximal and distal RCA stents. No stent thrombosis. Widely patent KINCAID to LAD. Widely patent SVG to OM#1. Probably signficant distal RCA stenosis not treated on recent PCI due to small vessel caliber and NITIN III flow. Global LV systolic dysfunction- Moderate LVEF: by LV gram 40 % Depressed Left Ventricular systolic function - Moderate Elevated Left Ventricular End Diastolic Pressure Successful PTCA/MIGUEL distal RCA with a 2.25 x 16 Promus Synergy stent at 8ATM, then inflated to 12 milton in proximal stent to insure proper appoistion with previously placed distal RCA stent. Successful PCI with PTCA to the proximal/ostial RCA to insure that no recently placed stent struts were crimped during this procedure. Not a true STEMI; Pt had ACS with recent stenting 2 days ago with dynamic ECG changes without overt ST Elevation. RECOMMENDATIONS Referred for immediate PCI Highly recommend quitting all tobacco products Follow up with primary machine engineer Risk factor modification ASA Indefinitley Plavix for at least 12 months Routine post interventional care Refer for Outpatient Cardiac Rehab Manual sheath removal per protocol Follow up with Dr. Huang Manual sheath removal. Would not pursue PCI of distal SVG to OM anastamosis; previous POBA of distal anastamosis appears to have healed well. Would not pursue PCI of calcified LM for DIAG as this may compromise KINCAID flow. Start hydralazine 10mg po bid for elevated LVEDP. Consults: Cardiology Nephrology Operations: None Procedures: Cardiac catheterization, Dialysis Summary of Care Provided: Per HPI: The patient is a 58 year old F with a PMH as below who presents from dialysis today with chest pain. She was discharged yesterday after having had 2 stents placed in the RCA. She was discharged home chest pain-free and went to dialysis this morning where she developed chest pain. She came to the ER where she was found to have ST elevations in V1 and V2 with ST depressions in the lateral leads. She was taken to straight to [facility] today where her 2 stents were found to be patent however the distal RCA was small though it did have blood flow. A third stent was placed which provided improvement in blood flow. Troponin today on admission was 4.08 and on her previous admission a peaked at 1.890. She currently denies any chest pain or shortness of breath. Hospital Course: 1. Chest pain with NSTEMI/CAD status post CABG and stents/HTN/HLD/chronic diastolic CPU-87-rvmi-old female who was discharged the day before admission after receiving 2 stents for chest pain. She presented again with chest pain and was found to be having an NSTEMI. She received a third stent to the distal RCA. She has been maintained on her aspirin and Plavix and was continued on her 12.5 mg p.o. twice daily of Coreg. Her Ranexa was discontinued in the hopes that they could increase her Coreg in the outpatient side. We will continue with her other home medications including Lipitor and isosorbide mononitrate. After the stent she did have some intermittent chest pressure which has been relieved by the day of discharge. She also had some shortness of breath and had an ambulatory pulse ox today prior to discharge which was normal. The lowest she got down on room air was to 92%. She will need to follow-up with cardiology in 1 to 2 weeks as an outpatient. I also recommended she follow-up with her PCP in 3 to 5 days. I did discuss the plan of discharge with her and she did express understanding. 2. ESRD/DM 2/obesity-she had her dialysis on Sunday morning and they had some blood loss after removing the catheter. Today prior to discharge her hemoglobin was 7.6. Cardiology felt that it would be safe for her to go home since she was completely asymptomatic from this anemia as long as she received blood if necessary on dialysis on Sunday. To this extent, I recommend that she have a CBC obtained on Sunday prior to dialysis. 3. Her other medical diagnoses were evaluated and her home medications were continued where appropriate - Physical Exam Vitals/I&O's: Vital Signs Temp Pulse Resp BP Pulse Ox 98.4 F 66 17 133/52 H 92 02/23/19 09:15 02/23/19 11:01 02/23/19 09:15 02/23/19 09:15 02/23/19 10:47 Oxygen Flow Rate (L/min) 2 Oxygen Delivery Method Room Air Weight: 204 lb 2.369 oz Body Mass Index (BMI) 38.9 Finger Stick Blood Glucose 275 Intake and Output for Last 24 Hours 02/21/19 02/22/19 02/23/19 23:59 23:59 22:59 Intake Total 520 / 520 570 / 570 350 / 350 Output Total 0 / 0 1500 / 1500 0 / 0 Balance 520 / 520 -930 / -930 350 / 350 General: Alert, Oriented x3, Cooperative, No apparent distress HEENT: Atraumatic, PERRLA, EOMI, Normocephalic Oral: Moist Mucosa Neck: Supple, No JVD Lungs: Clear to auscultation, Normal air movement, No rhonchi, No wheeze, No rales Cardiovascular: Regular rate, Regular Rhythm, Normal S1, Normal S2, No murmurs Abdomen: Soft, Non Tender, Non-Distended, No Hepato-splenomegaly, Obese Extremities: No edema, Capillary Refill Less than 3 Seconds Skin: No rashes, No breakdown Neurological: Neuro grossly intact, Sensory exam intact to light touch and pain Psych/Mental Status: Normal Affect, Appropriate Laboratory Results 02/22/19 16:56: POC Glucose 180 H 02/22/19 21:39: POC Glucose 156 H 02/23/19 05:46: WBC 5.8, RBC 2.65 L, Hgb 7.6 L, Hct 25.8 L, MCV 97.4, MCH 28.7, MCHC 29.5 L, RDW Std Deviation 67.4 H, RDW Coeff of Lauren 18.7 H, Plt Count 214, MPV 11.1, Immature Gran % (Auto) 0.500, Neut % (Auto) 60.1, Lymph % (Auto) 20.8, [place] % (Auto) 13.2 H, Eos % (Auto) 4.7, Baso % (Auto) 0.7, Absolute Neuts (auto) 3.5, Absolute Lymphs (auto) 1.20, Nucleated RBC % 0, Differential Comment SCANNED, Anisocytosis 2+, Microcytosis 1+, Macrocytosis 1+ 02/23/19 05:46: Sodium 135 L, Potassium 4.1, Chloride 97 L, Carbon Dioxide 29.0, Anion Gap 9, BUN 27 H, Creatinine 4.12 H, Estim Creat Clear Calc 11.09, Est GFR (MDRD) Af Amer 14 L, Est GFR (MDRD) Non-Af 12 L, BUN/Creatinine Ratio 6.6 L, Glucose 145 H, Calcium 8.5 02/23/19 06:34: POC Glucose 138 H 02/23/19 11:26: POC Glucose 308 H Current Medications Acetaminophen (Tylenol) 650 mg PO Q6H PRN PRN PRN Reason: Pain Score 1-3/10 Albuterol Sulfate (Ventolin Aerosols) 2.5 mg INHALATION Q6H PRN PRN PRN Reason: SOB/WHEEZING Aspirin (Aspirin, Baby) 81 mg PO DAILY@0800 [facility] Last Admin: 02/23/19 09:23 Dose: 81 mg Documented by: Atorvastatin Calcium (Lipitor) 80 mg PO QHS [facility] Last Admin: 02/22/19 21:45 Dose: 80 mg Documented by: Atropine Sulfate () 0.5 mg IV UD PRN PRN Reason: HR <50 bpm Carvedilol (Coreg) 12.5 mg PO BID [facility] Last Admin: 02/23/19 09:24 Dose: 12.5 mg Documented by: Citalopram Hydrobromide (Celexa) 20 mg PO DAILY [facility] Last Admin: 02/23/19 09:23 Dose: 20 mg Documented by: Clopidogrel Bisulfate (Plavix) 75 mg PO DAILY [facility] Last Admin: 02/23/19 09:24 Dose: 75 mg Documented by: Dextrose (D50w Syringe) 0 gm IV X1 PRN; Protocol PRN Reason: Hypoglycemia Diazepam (Valium) 5 mg PO Q6H PRN PRN PRN Reason: BACK SPASMS/ANXIETY Ergocalciferol (Vitamin D) 50,000 unit PO QMONTH [facility] Last Admin: 02/20/19 18:47 Dose: Not Given Documented by: Famotidine (Pepcid) 20 mg PO DAILY [facility] Last Admin: 02/23/19 09:24 Dose: 20 mg Documented by: Gabapentin (Neurontin) 300 mg PO QHS [facility] Last Admin: 02/22/19 21:46 Dose: 300 mg Documented by: Glucagon () 1 mg IM .X1 PRN PRN Reason: Hypoglycemia Heparin Sodium (Beef Lung) (Heparin 500 Unit/5 Ml (100/Ml)) 500 unit IV UD PRN PRN Reason: HEPARIN FLUSH Insulin Glargine (Lantus (Bkc)) 20 units SC DAILY [facility] Last Admin: 02/23/19 09:24 Dose: 20 u Documented by: Insulin Human Lispro (Humalog Kwikpen (Bkc)) 0 unit SC ACHS [facility]; Protocol Last Admin: 02/23/19 11:28 Dose: 6 u Documented by: Isosorbide Mononitrate (Imdur) 60 mg PO BID [facility] Last Admin: 02/23/19 09:24 Dose: 60 mg Documented by: Labetalol HCl (Trandate) 5 mg IV X1 PRN PRN Reason: SBP > 160 when pulling sheath Metoclopramide HCl (Reglan) 5 mg IV Q6H PRN PRN PRN Reason: NAUSEA/VOMITING Morphine Sulfate () 2 mg IV Q4H PRN PRN PRN Reason: Mild back pain (0-2/10) Multivit/Ca Carb/B Cmplx/FA/Prenat (Nephrocaps, Renaphro) 1 capsule PO DAILY [facility] Last Admin: 02/23/19 09:24 Dose: 1 capsule Documented by: Nitroglycerin (Nitrostat) 0.4 mg SUBLINGUAL Q5M PRN PRN Reason: CARDIAC/CHEST PAIN Nutritional Formula (Nepro Carb Steady) 120 ml PO 4X/DAY [facility] Last Admin: 02/23/19 09:24 Dose: Not Given Documented by: Pyridoxine HCl (Vitamin B-6) 100 mg PO DAILY [facility] Last Admin: 02/23/19 09:25 Dose: 100 mg Documented by: Senna (Senokot) 1 tablet PO QHS PRN PRN Reason: Constipation Last Admin: 02/20/19 14:50 Dose: 1 tablet Documented by: Sodium Chloride () 10 - 40 ml IV UD PRN PRN Reason: SALINE FLUSH Last Admin: 02/21/19 05:46 Dose: 10 ml Documented by: Timolol Maleate (Timoptic) 1 drop RIGHT EYE BID [facility] Last Admin: 02/23/19 09:25 Dose: 1 drop Documented by: Discharge Activity: Return to Normal Activity Call your doctor if you observe: Fever of 101 or Higher, Shortness of breath, Dizziness, Fainting spells, Swelling in the ankles, Chest pain, Increased palpitations (irregular heartbeat) Home Medications: Medications to take at Discharge Aspirin [Aspirin, Baby] 81 mg PO DAILY@0800 06/07/17 Atorvastatin Calcium [Lipitor] 80 mg PO QHS 06/07/17 Famotidine [Pepcid] 40 mg PO DAILY 06/07/17 Gabapentin [Neurontin] 300 mg PO QHS 06/07/17 Pyridoxine HCl (Vitamin B6) [B-6] 100 mg PO DAILY 06/07/17 Sennosides [Senna] 8.6 mg PO QHS PRN 06/07/17 ergocalciferol (vitamin D2) 50,000 unit capsule 50,000 unit PO QMONTH cap 08/01/17 isosorbide mononitrate ER 60 mg tablet,extended release 24 hr 60 mg PO BID #180 tab 02/04/18 clopidogrel 75 mg tablet 75 mg PO DAILY #30 tab 04/04/18 Citalopram Hydrobromide [Citalopram HBr] 20 mg PO DAILY 11/15/18 Folic Acid/Vitamin B Comp W-C [Nephrocaps, Renaphro] 1 cap PO DAILY 11/15/18 Timolol 0.5% [Timoptic] 1 drp RIGHT EYE BID 11/15/18 Albuterol Inhaler [Ventolin Hfa] 1 puff INHALATION Q6H PRN PRN #1 inhaler 11/19/18 Carvedilol [Coreg] 12.5 mg PO BID #30 tab 11/19/18 Insulin Glargine,Hum.rec.anlog [Toujeo Solostar] 20 unit SQ DAILY #0 11/19/18 Primary Care Physician: Brayden King Chi, MD [Primary Care Provider] - Please follow up with your Primary Care Physician in: 3-5 days Please Follow Up With: Freddie Huang MD When: 1-2 weeks Disposition: Home Minutes spent on discharge:: 35 Patient Condition:: Stable Medical Necessity - Tobacco Use Smoking Status: Former smoker Meaningful Use Info Meaningful Use Diagnoses (Choose all that apply): AMI - AMI Aspirin given w/in 24hrs of arrival?: Yes ASA at discharge?: Yes Statins at discharge?: Yes Chano/ARB at discharge?: No Reason Chano/ARB not ordered:: Worsening renal disease Beta Hallie at discharge?: Yes Done w/ Acute [place] measure.: Yes Code Visit Inpatient E&M: 00581 Disch Hosp
--- NOTE | 2019-02-24 15:48 | CASEMGMT ---
RN JACKSON DC PHONE CALL DC DATE: 02/23/19 DC Disposition: Home with Home care Diagnosis on Discharge: Sepsis due to pneumonia LACE/STRATA: 13 Intro role of CM to patient via phone. Pt states the Home Health RN was out today to evaluate and reviewed medications/instructions. No further questions. Claire LUCASN RN AC
== END 2019-02-23 14:09 | disposition home or self-care (01) | DRG 246 ==
LOC: ED 08:28 → ICU 09:13 → PCU 02-21 12:05
PROVIDERS: Internal Medicine Cardiovascular Disease; Admitting Provider Family Medicine; Emergency Provider Emergency Medicine; Family Provider Family Medicine Geriatric Medicine; PCP Family Medicine Geriatric Medicine; Referring Provider Family Medicine; Visit Provider Family Medicine
DX: I21.4 Non-ST elevation (NSTEMI) myocardial infarction (principal); N18.6 End stage renal disease; I50.42 Chronic combined systolic (congestive) and diastolic (congestive) heart failure; I13.2 Hypertensive heart and chronic kidney disease with heart failure and with stage 5 chronic kidney disease, or end stage renal disease; N25.81 Secondary hyperparathyroidism of renal origin; T82.838A Hemorrhage due to vascular prosthetic devices, implants and grafts, initial encounter; Z99.2 Dependence on renal dialysis; E11.22 Type 2 diabetes mellitus with diabetic chronic kidney disease; Z95.5 Presence of coronary angioplasty implant and graft; E21.3 Hyperparathyroidism, unspecified; Z79.02 Long term (current) use of antithrombotics/antiplatelets; I25.2 Old myocardial infarction; E66.01 Morbid (severe) obesity due to excess calories; E78.5 Hyperlipidemia, unspecified; G47.33 Obstructive sleep apnea (adult) (pediatric); E87.6 Hypokalemia; Z95.1 Presence of aortocoronary bypass graft; I34.0 Nonrheumatic mitral (valve) insufficiency; I27.21 Secondary pulmonary arterial hypertension; J44.9 Chronic obstructive pulmonary disease, unspecified; D63.1 Anemia in chronic kidney disease; E11.319 Type 2 diabetes mellitus with unspecified diabetic retinopathy without macular edema; K21.9 Gastro-esophageal reflux disease without esophagitis; Z79.82 Long term (current) use of aspirin; Z79.899 Other long term (current) drug therapy; Z79.4 Long term (current) use of insulin; Z79.51 Long term (current) use of inhaled steroids; Z87.891 Personal history of nicotine dependence; F41.9 Anxiety disorder, unspecified; F32.9 Major depressive disorder, single episode, unspecified; Z68.38 Body mass index [BMI] 38.0-38.9, adult; I25.110 Atherosclerotic heart disease of native coronary artery with unstable angina pectoris
CPT/HCPCS: 36415; 71045; 80048; 80053; 82962; 84484; 85025; 85027; 85347; 90937; 92928; 93005; 93459; 97162; 97166; 99285; J7030; Q9967; A4216; C1725; C1769; C1874; C1887; C1894; C9600; G0257

== ENCOUNTER → 2019-03-05 | Outpatient (CLI) | payer MEDICARE, MEDICAID, SELFPAY ==
[2019-02-20 09:40] VITALS: BMI 38.9
--- NOTE | 2019-03-05 10:37 | CR.HP_ITS ---
CR - History & Physical - General Arrival date:: 03/05/19 Arrival time:: 10:39 Date of Referral:: 02/18/19 - DO NOT START CR UNTIL AFTER 03/03/2019 Date of CR Evaluation:: 03/05/19 Referring Physician: DR. OLINDA MUSTAFA Primary Diagnosis: NSTEMI, PCI W/CORONARY STENTING - History of Present Cardiac Event Onset Date: Enter Onset Date of cardiac illnesses in Comment field below Acute Myocardial Infarction within 12 months:: Yes - 02/18/2019 Coronary Artery Bypass Graft:: Yes - 06/25/2014 PTCA or coronary stenting:: Yes - 02/18/2019 Type of Symptoms:: CAME IN TO ER W/CHEST PAIN SHORTNESS OF BREATH, ADMITTED WITH NSTEMI AND NEXT MORNING HAD HEART CATH AND TWO STENTS IN THE RCA. AFTER DISCHARGE WENT TO [facility] AND WHILE AT DIALYSIS BEGAN TO HAVE CHEST PAIN AGAIN, CAME BACK WITH ST ELEVATION/CHANGES ON EKG AND WENT BACK TO [facility]ART COASTAL AND ESTUARY SPECIALIST FOR ANOTHER STENT IN THE DISTAL PORTION OF THE RCA DUE TO NARROWING AND POOR BLOOD FLOW. Interventions with present event:: HEART CATH PROCEDURES AND STENT PLACEMENT IN THE RCA Were there any complications?: NONE; HAS DIALYSIS ON SUN, and SUNDAY - Medications Home Medications: Ambulatory Orders Medication Instructions Recorded Aspirin [Aspirin, Baby] 81 mg PO DAILY@0800 06/07/17 Atorvastatin Calcium [Lipitor] 80 mg PO QHS 06/07/17 Famotidine [Pepcid] 40 mg PO DAILY 06/07/17 Gabapentin [Neurontin] 300 mg PO QHS 06/07/17 Pyridoxine HCl (Vitamin B6) [B-6] 100 mg PO DAILY 06/07/17 Sennosides [Senna] 8.6 mg PO QHS PRN 06/07/17 ergocalciferol (vitamin D2) 50,000 50,000 unit PO QMONTH cap 08/01/17 unit capsule isosorbide mononitrate ER 60 mg 60 mg PO BID #180 tab 02/04/18 tablet,extended release 24 hr clopidogrel 75 mg tablet 75 mg PO DAILY #30 tab 04/04/18 Citalopram Hydrobromide 20 mg PO DAILY 11/15/18 [Citalopram HBr] Folic Acid/Vitamin B Comp W-C 1 cap PO DAILY 11/15/18 [Nephrocaps, Renaphro] Timolol 0.5% [Timoptic] 1 drp RIGHT EYE BID 11/15/18 Albuterol Inhaler [Ventolin Hfa] 1 puff INHALATION Q6H PRN PRN #1 11/19/18 inhaler Carvedilol [Coreg] 12.5 mg PO BID #30 tab 11/19/18 Insulin Glargine,Hum.rec.anlog 20 unit SQ DAILY #0 11/19/18 [[place] Solostar] - Allergies Allergies/Adverse Reactions: Allergies lisinopril Allergy (Verified 02/18/19 00:24) Unknown ranitidine HCl [From Zantac] Allergy (Verified 02/18/19 00:24) Hives azithromycin Adverse Reaction (Verified 02/18/19 00:24) Nausea/Vom/Diarrhea - Sleep Disorder Evaluation Hx of Sleep Apnea: Yes Do you snore loudly (louder than talking or can be heard through closed doors)?: Yes - PATIENT HAS A HOME BiPAP DEVICE SHSE USES CURRENTLY FOR CLAUDIO. Do you often feel tired/ fatigued/ sleepy during daytime?: Yes - IN PART IS DUE TO CHRONIC KIDNEY DISEASE, LACK OF PHYSICAL ACTIVITY IN ADDITION TO THE CLAUDIO. Has anyone observed you stop breathing during sleep?: Yes History of Hypertension (for STOP score): Yes STOP Results: Positive Advanced Directives - Advanced Directives Power of [employer]: Yes Living Will: Yes Advance Directives Information Provided: No Advance Directives on File: Yes DNR Order?:: No - MOLST See MOLST form: No Past Medical History - Past Medical Illness Medical History: Past Medical History (Last Reviewed 03/05/19 @ 09:53 by Anel Cesar) History of non-ST elevation myocardial infarction (NSTEMI) (Chronic) I25.2 Nonrheumatic mitral (valve) insufficiency (Chronic) I34.0 Secondary pulmonary arterial hypertension (Chronic) I27.21 Chronic diastolic (congestive) heart failure (Chronic) I50.32 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) I25.728 CABG x3- KINCAID-LAD, SVG-CX, SVG-RCA 06/25/14 @ [facility] NSTEMI (non-ST elevated myocardial infarction) (Resolved) I21.4 AV fistula (Chronic) I77.0 Morbid obesity (Chronic) E66.01 Diabetes mellitus type 2 in obese (Chronic) E11.9, E66.9 End-stage renal disease on hemodialysis (Chronic) N18.6, Z99.2 Hypertension (Chronic) I10 HLD (hyperlipidemia) (Chronic) E78.5 COPD (chronic obstructive pulmonary disease) (Chronic) J44.9 CLAUDIO (obstructive sleep apnea) (Chronic) G47.33 17/11 cmH2O Hypokalemia (Chronic) E87.6 Secondary hyperparathyroidism of renal origin (Chronic) N25.81 Anemia in chronic renal disease N18.9, D63.1 DDD (degenerative disc disease) Diabetic retinopathy E11.319 GERD (gastroesophageal reflux disease) K21.9 Glaucoma H40.9 Abnormal stress test (Resolved) R94.39 Acute respiratory failure with hypoxemia (Resolved) J96.01 Acute respiratory failure with hypoxia (Resolved) J96.01 Arteriovenous fistula stenosis (Resolved) T82.858A COPD with acute exacerbation (Resolved) J44.1 History of hysterectomy Z90.710 Non-ST elevation CT (NSTEMI) (Resolved) I21.4 Cardiomegaly (Inactive) I51.7 - Past Surgical History Surgical History: Past Surgical History (Last Reviewed 03/05/19 @ 09:53 by Anel Cesar) Postsurgical percutaneous transluminal coronary angioplasty (PTCA) status (Resolved) Onset Date: 02/18/19 Z98.61 06/12/2017:Triple vessel CAD of the LM, LCX, LAD; Persistent distal anastamotic lesion from SVG to OM#2; Possibly signifcant ischemia in DIAG branch downstream from critical LM lesion. Successful PCI with PTCA to the DISTAL ANASTOMOTIC SITE OF SVG TO OM WITH 1.5, THEN 2.0 BALLOON; 85%-->10%, NO DISSECTION OR PERFORATION. No additional stenting performed out of concern for restricting retrograde blood flow to [place] AV LCX, as well as lack of anginal symptoms during prolonged balloon inflation. Culprit artery may be [place] DIAG#1 due to LM disease, but to correct LM disease may jeopardize patent KINCAID. 02/18/2019:Triple vessel CAD of the LAD, LCX, RCA; Widely patent KINCAID to LAD; Widely patent SVG to OM with well healed distal SVG anastomitic site from previous PCI/POBA. Successful PTCA/MIGUEL distal RCA with a 2.25 x 16 Promus Synergy, 75%-->0%, no dissection. Pt had identical chest pressure during stent deployment. Successful PTCA/MIGUEL Proximal RCA with a 2.5 x 20 Promus Synergy, post dilated throughout with a 2.5 x 8 NC Balloon; 75%-->0%, no dissection. 02/20/2019:Successful PTCA/MIGUEL distal RCA with a 2.25 x 16 Promus Synergy stent at 8ATM, then inflated to 12 [place] in proximal stent to insure proper appoistion with previously placed distal RCA stent. Successful PCI with PTCA to the proximal/ostial RCA to insure that no recently placed stent struts were crimped during this procedure. Not a true STEMI; Pt had ACS with recent stenting 2 days ago with dynamic ECG changes without overt ST Elevation. Aortocoronary bypass status (Chronic) Onset Date: 06/25/14 Z95.1 CABG x3- KINCAID-LAD, SVG-CX, SVG-RCA 06/25/14 @ [facility] AVF placement Onset Date: ~07/01/15 angioplasty of artriovenous fistula History of back surgery Z98.890 History of cataract surgery Z98.49 Surgical History: angioplasty, cataract, coronary bypass surgery - CABG x 3., hysterectomy, - - AVF placement, back surgery. - Family History Summary Family History: Family History (Last Reviewed 03/05/19 @ 09:53 by Anel Cesar) Father Heart disease Hypertension Prostate cancer Mother Hypertension Social History - Smoking History Smoking Status: Former smoker Hx Tobacco Use: No Hx Smoking Exposure: No - Alcohol Use Alcohol Usage: No - Substance Abuse Hx Substance Use: No - Occupation Occupation (List type of work in comments):: Unemployed - Hobbies, Recreation, Social Activities Recreational Activities: I can hardly do any recreational activities Social Environment - Status Marital Status: Single - Current Living Arrangements Living Environment:: Family - Children How many children do you have?: 8 - 3 AT HOME Do any of your children live nearby?: Yes - Safety Do you feel safe in your surroundings?: Yes - Assistance Do you need any assistance at home?: HOME HEALTH AIDE, [employer] Review of Systems - Review of Systems Hints: Right click = Denies (Slash). Left click = Reports (Moira) Review of Present Symptoms: Reports: Shortness of Breath with Exertion, Fatigue, Appetite - Special Diet - LOW SODIUM, LOW FAT, DIABETIC CARDIAC DIET.. 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 - Vital Signs Temperature: 98.7 F Respiratory Rate: 14 Pulse Ox: 92 Blood Pressure: 104/58 - Pulse Pulse Rate: 68 - Hypertension Blood Pressure Sitting - Right Arm: 104/58 - BPs RIGHT ARM ONLY - Stress Stress: Recent - Blood Cholesterol/Lipids Total Cholesterol (mg/dL) Goal = less than 200 mg/dL: 121 - 02/19/2019 HDL Cholesterol (mg/dL) Goal = less than 40 mg/dL: 62 LDL Cholesterol (mg/dL) Goal = less than 70 mg/dL: 38 Triglycerides (mg/dL) Goal = less than 150 mg/dL: 105 - Diabetes Nutrition Referral for Diabetes: Yes - Obesity Height: 5 ft 1 in Weight:: 202 lb Weight in Pounds: 202.0 lbs Weight Source: [facility] Body Mass Index (BMI): 38.1 Nutritional Referral for Obesity: No - PATIENT DECLINED SERVICES - Physical Inactivity Physical Inactivity: None - Risk Stratification Risk Guidelines: Lowest Risk: Risk Factor for Smoking, Risk Factor for Dyslipidemia, Moderate Risk: Risk Factor for Diabetes, Risk Factor for Hypertension, Risk Factor for Depression, Highest Risk: Risk Factor for Obesity, Risk Factor for Sedentary Lifestyle - For Smoking Smoking Risk Guidelines: Smoking Low Risk: None or quit greater than 6 months ago. Smoking Moderate Risk: Smoker or quit 6 months or less ago. Smoking High Risk: Smoker - For Dyslipidemia Dyslipidemia Risk Guidelines: Low Risk: Moderate Risk: High Risk: 15-25% fat 25.1-29% fat >/= 30% fat. <7% sat fat 7-9% sat fat >9% sat fat. <150 mg chol 150-299 mg chol >/= 300 mg chol. LDL <100 LDL 100-129 LDL >/= 130. Chol/HDL ratio <5.0 Chol/HDL ratio 5.0-6.0 Chol/HDL ratio >6.0. Triglycerides <100 Triglycerides 100-149 Triglycerides >/= 150 - For Diabetes Mellitus Diabetes Risk Guidelines: Diabetes Low Risk: HgA1c <6.5% and/or FBG <120. Diabetes Moderate Risk: HgA1c 6.6-7.9% and/or FBG 120-180. Diabetes High Risk: HgA1c >/= 8% and/or FBG >180 - For Obesity/Overweight Obesity/Overweight Risk Guidelines: Obesity Low Risk: BMI <25.0. Obesity Moderate Risk: BMI 25-29.9. Obesity High Risk: BMI >/= 30.0 - For Hypertension Hypertension Risk Guidelines: Hypertension Low Risk: Systolic <120 and Diastolic <80. Hypertension Moderate Risk: Systolic 120-139 and Diastolic 80-89. Hypertension High Risk: Systolic >/= 140 and Diastolic >/= 90 - For Sedentary Lifestyle Sedentary Lifestyle Risk Guidelines: Sedentary Lifestyle Low Risk: >/= 1,500 kcal/week. Sedentary Lifestyle Moderate Risk: 700-1,499 kcal/week. Sedentary Lifestyle High Risk: < 700 kcal/week - For Depression Depression Risk Guidelines: Depression Low Risk: Not clinically depressed. Depression Moderate Risk: Mildly depressed. Depression High Risk: Clinically depressed - Family History Family History: Family History (Last Reviewed 03/05/19 @ 09:53 by Anel Cesar) Father Heart disease Hypertension Prostate cancer Mother Hypertension Motivation - Motivation to Participate On a scale of 1 to 10, how prepared are you to commit to attending program?: 10 What do you see as barriers to successfully being able to complete the program?: TRANSPORTATION AND DIALYSIS What do you see as the benefits of succesfully completing the program? In other words, what do you hope to get out of participating in the program?: BETTER HEALTH, MOVING MORE Are there issues you are dealing with that will interfere with completing the program?: I have become a couch potatoe, and I know I should be exercising. Do you have a spouse or signficant other, family or friends who will help support you to complete the program?: yes, very good.
--- NOTE | 2019-03-05 10:37 | PCM.CR.ITP ---
General Information - General Information Admitting Diagnosis: NSTEMI, PCI W/COROANRY STENTING TO THE RCA AND DISTAL RCA - Education/Goals Barriers to Learning: None, Vision Impairment Individual Counseling: Initial Assessment: Abnormal Cholesterol Levels, High Blood Pressure, Overweight/Obesity, Diabetes, Metabolic Syndrome (as evidenced by 3 of 5 A-E below), A. Fasting Blood Sugar >100, B. Waist Circumference >35/Females >40/Males, Hypertension, Sedentary Lifestyle, Stress Cardiac Rehabilitation Goals: 1. Maintain the individual as the primary focus of care. 2. To improve the patient's quality of life. 3. Identification of cardiac risk factors and provide cardiac risk factor management. 4. Enhance the psychosocial status of the patient. 5. Reconditioning enough to allow the patient to resume customary activities. 6. Control symptoms of cardiac disease Scale for measuring improvement of personal goals: Enter appropriate number in Comments. 2 = Unchanged. 3 = Slightly Better. 4 = Moderate Improvement. 5 = Met my Goal Personal Goals: Initial Assessment: Improve management of stress and emotions, Improve energy level, Participate in home exercise program, Get back to work, or to resume activities faster, Improve muscle strength and endurance, Improve diet and eating habits (eat healthier), Control risk factors (learn risk factor modification) Exercise - Initial Assessment - Visit Date of Eval: 03/05/19 Session #:: 0 - PATIENT WISHES TO START CR ON - Stages of Change Stages of Change:: Action - Physician Prescribed Exercise Modalities: NuStep, SciFit Frequency (days/week): 3x/week for 12 weeks [36 sessions] Duration (Minutes):: 30-45 Intensity: 60-80% age predicted maximum heart rate reserve METs - Progression: 0.5-1.0 MET, RPE 11-14 WEEK: 3.0 Target Heart Rate:: 104-136 RPE MAGDALENA SC 12-16 - Hypertension Do any of the following apply?: Yes, Medication Resting Blood Pressure:: 104/58 - Education Goals:: Warm-up, RPE MAGDALENA Scale, S/S, Safe Exercise, Self-Monitoring - Exercise Program Goals Exercise Program Goals: Aerobic Activity >30 min Nutrition - Initial Assessment - Program Goals Nutrition Program Goals: LDL <70. Total Cholesterol <200. HDL >45. Triglycerides <150. HgbA1C <7%. BMI <25 - Visit Date of Assessment:: 03/05/19 - Stages of Change Stages of Change:: Action - Lipids Total Cholesterol (mg/dL) Goal = less than 200 mg/dL: 121 - 02/19/2019 HDL Cholesterol (mg/dL) Goal = less than 45 mg/dL: 62 LDL Cholesterol (mg/dL) Goal = less than 70 mg/dL: 38 Triglycerides (mg/dL) Goal = less than 150 mg/dL: 105 - Diabetes Diabetes:: Yes Do you monitor your blood sugar at home?: Yes - Weight Management Height: 5 ft 1 in Weight:: 202 lb Body Fat %:: 38 - Intervention Referral to dietitian:: No - [facility] Referral to Diabetic Clinic:: No Will attend diet classes:: Yes - Education Gave educational materials for:: Signs & symptoms of hypoglycemia, Signs & symptoms of hyperglycemia, Relate diabetes to coronary artery disease, Healthy eating Tobacco - Initial Assessment - Program Goals Tobacco Program Goals: Complete smoking cessation. Attend education classes. Improve Knowledge Test score - Stage of Change Stages of Change:: Action - Learning Barriers Learning Barriers: Vision - retinopathy, limited vision right, legally blind in left eye., Ready to Learn - Family Support Do you have family support?: Yes - Tobacco Use Tobacco Use: Non-smoker Do you use smokeless tobacco?: No - Intervention Smoking Cessation Referral:: No Individual Education/Counseling:: No Education Schedule Given:: Yes - Education Attended class for:: Treating Heart Disease, How The Heart Works, What it means to have Heart Disease, How Coronary Artery Disease is Diagnosed, Heart Procedures, What Heart Medications Do, Risk Factors & Modifications, Living an Active Life, Nutrition, Emotions & Heart Disease, Stress Management & Relaxation, Sleep Disorders & Heart Disease Psychosocial - Initial Assess - Target Goals Target Goals: Assess presence or absence of depression. Using a valid screening tool, maximizes coping skills. Positive support system - Stages of Change Stages of Change:: Action - Psychosocial Test Tool Used:: HANDS Depression Questionnaire - Intervention PS - Interventions: Yes Attend Stress Management Classes, Yes Uses Stress Management Skills, No Referral to Mental Health, No Referral to [facility] Case Management, No Referral to Physician - Education Gave educational materials for:: Coping techniques, Signs & symptoms of depression, Stress management, Relaxation techniques - Patient/Program Goal Preventative Medication(s):: Aspirin, SABINA inhibitor, Clopidogrel, Beta ivy, Statin/lipid - Assistive Devices Assistive Devices:: Cane - AT HOME AND AT CR TO GET TO EQUIPMENT ETC., Walker - AT HOME AND AT CR TO GET TO EQUIPMENT ETC., Wheelchair - WHEELCHAIR FOR LONG DISTANCES Fall Risk Assessed:: Yes Patient Health Questionnaire Initial Assessment 2. Feeling down, depressed, or hopeless: Several days 3. Trouble falling or staying asleep, or sleeping too much: Nearly every day 4. Feeling tired or having little energy: Nearly every day 5. Poor appetite or overeating: Nearly every day 6. Feeling bad about yourself -- or that you are a failure or have let yourself or your family down: Not at all 7. Trouble concentrating on things, such as reading the newspaper or watching television: More than half the days 8. Moving or speaking so slowly that other people could have noticed. Or the opposite - being so fidgety or restless that you have been moving around a lot more than usual: Not at all 9. Thoughts that you would be better off , or of hurting yourself in some way: Not at all How difficult have these problems made it for you to do your work, take care of things at home, or get along with other people?: Very difficult - patient could benefit from Behavioral Health Counseling Services Total Score: 12 LUCAS-Q SV Test - Statements CAD is a disease of the arteries in the heart: False Examples of risk factors for heart disease: True Angina is chest pain or discomfort: True The benefits of resistance training include: True Eating more meat and dairy products: False Anti-platelet medications such as aspirin are important: True The only effective way to manage stress: False An exercise warm-up slowly increases heart rate: True Prepared, processed foods usually have high sodium: True Depression is common after a heart attack: True The statin medications lower cholesterol: True To control blood pressure, lower the amount of sodium: True If someone gets chest discomfort during walking: False Transfats are partially hydrogenated vegetable oils: True Sleep apnea that is not treated increases the risk: True To control cholesterol, one should become a vegetarian: False Someone knows if he/she is exercising at the right level: True Diabetes cannot be prevented with exercise & health eating: False Stress is a large risk for heart attack: True A diet that can help lower blood pressure is rich in: True - Total Score Total Correct Responses: 19 Self-Efficacy Initial Assessment We would like to know how confident you are in doing certain activities. Please select your confidence level for:: Select your confidence level for the following using the scale 1-10 where 1 is not at all confident and 10 is totally confident. Your score is the average of all 6 responses. Fatigue: How confident are you that you can keep the fatigue caused by your disease from interfering with the things you want to do? Select Number: 3 Physical Discomfort or Pain: How confident are you that you can keep the physical discomfort or pain of your disease from interfering with the things you want to do? Select Number: 3 Emotional Distress: How confident are you that you can keep the emotional distress caused by your disease from interfering with the things you want to do? Select Number: 5 Other Symptoms or Health Problems: How confident are you that you can keep other symptoms or health problems from interfering with the things you want to do? Select Number: 3 Different Tasks and Activities: How confident are you that you can do the different tasks and activities needed to manage your health condition so as to reduce your need to see a doctor? Select Number: 5 Medication: How confident are you that you can do things other than just taking medication to reduce how much your illness affects your everyday life? Select Number: 8 Total Score:: 4 Nutrition Survey - Nutrition Survey Instructions Scoring Instructions: Scoring is as follows: Yes = 1 points. No = 0 point. Patient score that is >/=12 is considered to be at potential nutritional risk and could benefit from a referral to a registered dietitian. - Nutrition Survey Initial Have you lost >10 lbs over the past 2 months without trying?: No Are you following a special diet at home for diabetes, low fat, or low salt?: Yes - low sodium, low fat, diabetic diet Are you interested in meeting with a dietitian for help understanding your diet?: No Do you eat less than 3 meals a day?: Yes Do you eat fatty meats (cornelius, sausage, ribs, etc), fried foods, desserts, large amounts of salad dressings, margarine, butter, or cheese most days?: Yes Do you have food allergies? [Enter types in comment field]: No Do you eat in restaurants more than 3 times a week?: No Do you season food with salt, seasoning salt, or garlic salt?: No Do you used canned, boxed, frozen meals, or soups, seasoning packets?: Yes Total Score:: 4
[2019-03-05 11:10] VITALS: BP 104/58; PULSE 68; RESP 14; TEMP 37.1; O2SAT 92; BMI 38.1
[2019-03-05 11:33] VITALS: BP 104/58
== END | disposition home or self-care (01) ==
LOC: CR 10:36
PROVIDERS: Family Provider Family Medicine Geriatric Medicine; PCP Family Medicine Geriatric Medicine; Referring Provider Internal Medicine Cardiovascular Disease; Visit Provider Internal Medicine Cardiovascular Disease
DX: I21.4 Non-ST elevation (NSTEMI) myocardial infarction (principal); Z95.1 Presence of aortocoronary bypass graft

== ENCOUNTER 2019-03-19 11:30 | Outpatient (RCR) | payer MEDICARE, MEDICAID, SELFPAY ==
[2019-03-05 11:10] VITALS: BMI 38.1
[2019-03-06 14:40] VITALS: BMI 37.2
== END 2019-03-22 23:59 ==
LOC: CR 11:30
PROVIDERS: Family Provider Family Medicine Geriatric Medicine; PCP Family Medicine Geriatric Medicine; Referring Provider Internal Medicine Cardiovascular Disease; Visit Provider Internal Medicine Cardiovascular Disease
DX: I21.4 Non-ST elevation (NSTEMI) myocardial infarction (principal); I25.728 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(s) with other forms of angina pectoris; Z98.61 Coronary angioplasty status
CPT/HCPCS: 93798

== ENCOUNTER → 2019-03-19 11:30 | Outpatient (CLI) | payer MEDICARE, MEDICAID, SELFPAY ==
[2019-03-06 14:40] VITALS: BMI 37.2
== END ==
PROVIDERS: Family Provider Family Medicine Geriatric Medicine; PCP Family Medicine Geriatric Medicine; Referring Provider Internal Medicine Critical Care Medicine; Visit Provider Internal Medicine Critical Care Medicine
DX: Z46.89 Encounter for fitting and adjustment of other specified devices (principal)

== ENCOUNTER 2019-04-07 12:30 | Outpatient (RCR) | payer MEDICARE, MEDICAID, SELFPAY ==
[2019-03-06 14:40] VITALS: BMI 37.2
== END 2019-04-22 23:59 ==
LOC: DC 12:30
PROVIDERS: Family Provider Family Medicine Geriatric Medicine; PCP Family Medicine Geriatric Medicine; Visit Provider Internal Medicine Cardiovascular Disease
DX: Z71.3 Dietary counseling and surveillance (principal); N25.81 Secondary hyperparathyroidism of renal origin; E11.9 Type 2 diabetes mellitus without complications; E66.9 Obesity, unspecified; E66.01 Morbid (severe) obesity due to excess calories; I12.0 Hypertensive chronic kidney disease with stage 5 chronic kidney disease or end stage renal disease; N18.6 End stage renal disease; Z99.2 Dependence on renal dialysis; I47.1 Supraventricular tachycardia; I49.8 Other specified cardiac arrhythmias; R55 Syncope and collapse; I25.5 Ischemic cardiomyopathy; I25.10 Atherosclerotic heart disease of native coronary artery without angina pectoris; I16.0 Hypertensive urgency
CPT/HCPCS: 93798; 97802; G0108

== ENCOUNTER 2019-04-21 11:30 | Outpatient (RCR) | payer MEDICARE, SELFPAY, MEDICAID ==
[2019-03-06 14:40] VITALS: BMI 37.2
--- NOTE | 2019-04-02 15:00 | CR.ITP_ITS ---
General Information - General Information Admitting Diagnosis: PCI with coronary stent - Education/Goals Cardiac Rehabilitation Goals: 1. Maintain the individual as the primary focus of care. 2. To improve the patient's quality of life. 3. Identification of cardiac risk factors and provide cardiac risk factor management. 4. Enhance the psychosocial status of the patient. 5. Reconditioning enough to allow the patient to resume customary activities. 6. Control symptoms of cardiac disease Scale for measuring improvement of personal goals: Enter appropriate number in Comments. 2 = Unchanged. 3 = Slightly Better. 4 = Moderate Improvement. 5 = Met my Goal Exercise - 30-day Assessment - Visit Date of Eval: 04/02/19 Session #:: 8 - Stages of Change Stages of Change:: Action - Physician Prescribed Exercise Modalities: NuStep, SciFit Frequency (days/week): 3 Duration (Minutes):: 30-45 Intensity: 60-80% age predicted maximum heart rate reserve METs - Progression: 0.5-1.0 MET, RPE 11-14 WEEK: 4 Target Heart Rate:: 104-136 Max HR 76 - Hypertension Resting Blood Pressure:: 130/56 Peak Exercise Blood Pressure:: 148/60 - Intervention Home Exercise/Activity Goal:: Sitting Time <3 hrs/day - Education Goals:: Warm-up, RPE MAGDALENA Scale, S/S, Safe Exercise, Self-Monitoring - Exercise Program Goals Exercise Program Goals: Aerobic Activity >30 min, B/P <130/80 Nutrition - Initial Assessment - Program Goals Nutrition Program Goals: LDL <70. Total Cholesterol <200. HDL >45. Triglycerides <150. HgbA1C <7%. BMI <25 - Diabetes Do you monitor your blood sugar at home?: Yes Nutrition - 30-Day Assessment - Program Goals Nutrition Program Goals: LDL <70. Total Cholesterol <200. HDL >45. Triglycerides <150. HgbA1C <7%. BMI <25 - Visit Date of Eval: 04/02/19 - Stages of Change Stages of Change:: Action - Diabetes Diabetes:: Yes - Weight Management Weight:: 90.718 kg - Intervention Referral to dietitian:: No Referral to Diabetic Clinic:: No Will attend diet classes:: Yes - Education Attended class for:: Signs & symptoms of hypoglycemia, Signs & symptoms of hyperglycemia, Relate diabetes to coronary artery disease, Healthy eating Tobacco - Initial Assessment - Program Goals Tobacco Program Goals: Complete smoking cessation. Attend education classes. Improve Knowledge Test score - Learning Barriers Learning Barriers: Vision - retinopathy, limited vision right, legally blind in left eye., Ready to Learn Tobacco - 30-Day Assessment - Program Goals Tobacco Program Goals: Complete smoking cessation. Attend education classes. Improve Knowledge Test score - Stage of Change Stages of Change:: Action - Learning Barriers Learning Barriers: Participates in education - Family Support Do you have family support?: Yes - Tobacco Use Tobacco Use: Non-smoker - Intervention Smoking Cessation Referral:: No Individual Education/Counseling:: No Education Schedule Given:: Yes - Education Attended class for:: Treating Heart Disease, How The Heart Works, What it means to have Heart Disease, How Coronary Artery Disease is Diagnosed Psychosocial - Initial Assess - Target Goals Target Goals: Assess presence or absence of depression. Using a valid screening tool, maximizes coping skills. Positive support system - Psychosocial Test Tool Used:: HANDS Depression Questionnaire - Assistive Devices Fall Risk Assessed:: Yes Psychosocial - 30-Day Assess - Target Goals Target Goals: Assess presence or absence of depression. Using a valid screening tool, maximizes coping skills. Positive support system - Stages of Change Stages of Change:: Action - Psychosocial Test Tool Used:: HANDS Depression Questionnaire - Intervention PS - Interventions: Yes Attend Stress Management Classes, Yes Uses Stress Management Skills, No Referral to Mental Health, No Referral to [facility] Case Management, No Referral to Physician - Education Attended classes for:: Coping techniques, Signs & symptoms of depression, Stress management, Relaxation techniques - Assistive Devices Assistive Devices:: None, Wheelchair Fall Risk Assessed:: Yes - no treadmill Patient Health Questionnaire 30-Day Re-eval Assessment 1. Little interest or pleasure in doing things: Several days 2. Feeling down, depressed, or hopeless: Nearly every day 3. Trouble falling or staying asleep, or sleeping too much: Nearly every day 4. Feeling tired or having little energy: Nearly every day 5. Poor appetite or overeating: Not at all 6. Feeling bad about yourself -- or that you are a failure or have let yourself or your family down: More than half the days 8. Moving or speaking so slowly that other people could have noticed. Or the opposite - being so fidgety or restless that you have been moving around a lot more than usual: Not at all 9. Thoughts that you would be better off , or of hurting yourself in some way: Not at all How difficult have these problems made it for you to do your work, take care of things at home, or get along with other people?: Very difficult Total Score: 12 Self-Efficacy 30-Day Re-eval Assessment We would like to know how confident you are in doing certain activities. Please select your confidence level for:: Select your confidence level for the following using the scale 1-10 where 1 is not at all confident and 10 is totally confident. Your score is the average of all 6 responses. Fatigue: How confident are you that you can keep the fatigue caused by your disease from interfering with the things you want to do? Select Number: 3 Physical Discomfort or Pain: How confident are you that you can keep the physical discomfort or pain of your disease from interfering with the things you want to do? Select Number: 3 Emotional Distress: How confident are you that you can keep the emotional distress caused by your disease from interfering with the things you want to do? Select Number: 5 Other Symptoms or Health Problems: How confident are you that you can keep other symptoms or health problems from interfering with the things you want to do? Select Number: 3 Different Tasks and Activities: How confident are you that you can do the different tasks and activities needed to manage your health condition so as to reduce your need to see a doctor? Select Number: 5 Medication: How confident are you that you can do things other than just taking medication to reduce how much your illness affects your everyday life? Select Number: 8 Total Score:: 4
[2019-04-02 15:04] VITALS: BP 130/56; BP 148/60
== END 2019-04-22 23:59 ==
LOC: CR 11:30
PROVIDERS: Family Provider Family Medicine Geriatric Medicine; PCP Family Medicine Geriatric Medicine; Referring Provider Internal Medicine Cardiovascular Disease; Visit Provider Internal Medicine Cardiovascular Disease
DX: I21.4 Non-ST elevation (NSTEMI) myocardial infarction (principal); I25.728 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(s) with other forms of angina pectoris; Z98.61 Coronary angioplasty status
CPT/HCPCS: 93798

== ENCOUNTER 2019-05-14 12:00 | Outpatient (RCR) | payer MEDICARE, MEDICAID, SELFPAY ==
[2019-04-14 07:52] VITALS: BMI 37.2
== END 2019-05-23 23:59 ==
LOC: DC 12:00
PROVIDERS: Family Provider Family Medicine Geriatric Medicine; PCP Family Medicine Geriatric Medicine; Visit Provider Internal Medicine Cardiovascular Disease
DX: Z71.3 Dietary counseling and surveillance (principal); N25.81 Secondary hyperparathyroidism of renal origin; E11.22 Type 2 diabetes mellitus with diabetic chronic kidney disease; E66.9 Obesity, unspecified; E66.01 Morbid (severe) obesity due to excess calories; I12.0 Hypertensive chronic kidney disease with stage 5 chronic kidney disease or end stage renal disease; N18.6 End stage renal disease; Z99.2 Dependence on renal dialysis; I21.4 Non-ST elevation (NSTEMI) myocardial infarction; I25.728 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(s) with other forms of angina pectoris; Z98.61 Coronary angioplasty status
CPT/HCPCS: 93798; 97803; G0108

== ENCOUNTER 2019-05-23 11:30 | Outpatient (RCR) | payer MEDICARE, MEDICAID, SELFPAY ==
[2019-04-14 07:52] VITALS: BMI 37.2
[2019-04-23 00:53] VITALS: BP 130/56; BP 148/60
--- NOTE | 2019-05-02 08:21 | PCM.CR.ITP ---
Exercise - 60-Day Assessment - Visit Date of Eval: 05/02/19 Session #:: 18 - Patient started CR on 03/10/2019 - Stages of Change Stages of Change:: Action - Physician Prescribed Exercise Modalities: NuStep, SciFit Frequency (days/week): 3 - Limited physically Duration (Minutes):: 30-45 Intensity: 60-80% age predicted maximum heart rate reserve METs - Progression: 0.5-1.0 MET, RPE 11-14 WEEK: 4 increase from 3.5 Target Heart Rate:: 104-136 max HR 76 - Hypertension Resting Blood Pressure:: 128/60 Peak Exercise Blood Pressure:: 144/62 Medication Changes:: No - Intervention Home Exercise/Activity Goal:: Sitting Time <3 hrs/day - Education Goals:: Warm-up, RPE MAGDALENA Scale, S/S, Safe Exercise, Self-Monitoring - Exercise Program Goals Exercise Program Goals: Aerobic Activity >30 min Nutrition - Initial Assessment - Program Goals Nutrition Program Goals: LDL <70. Total Cholesterol <200. HDL >45. Triglycerides <150. HgbA1C <7%. BMI <25 - Diabetes Do you monitor your blood sugar at home?: Yes Nutrition - 60-Day Assessment - Program Goals Nutrition Program Goals: LDL <70. Total Cholesterol <200. HDL >45. Triglycerides <150. HgbA1C <7%. BMI <25 - Visit Date of Eval: 05/02/19 - Stages of Change Stages of Change:: Action - Lipids Has the patient seen the dietitian?: Yes - 03/26/2019 - Diabetes Diabetes:: Yes Insulin: Yes Non-Insulin Dependent?: Yes - Weight Management Weight:: 200 lb - +/- 2 pound on hemodialysis - Intervention Referral to dietitian:: No Referral to Diabetic Clinic:: No Will attend diet classes:: Yes - Education Attended class for:: Signs & symptoms of hypoglycemia, Signs & symptoms of hyperglycemia, Relate diabetes to coronary artery disease, Healthy eating Tobacco - Initial Assessment - Program Goals Tobacco Program Goals: Complete smoking cessation. Attend education classes. Improve Knowledge Test score - Learning Barriers Learning Barriers: Vision - retinopathy, limited vision right, legally blind in left eye., Ready to Learn Tobacco - 60-Day Assessment - Program Goals Tobacco Program Goals: Complete smoking cessation. Attend education classes. Improve Knowledge Test score - Stage of Change Stages of Change:: Action - Learning Barriers Learning Barriers: Participates in education, Change in behavior - Family Support Do you have family support?: Yes - Tobacco Use Tobacco Use: Non-smoker Do you use smokeless tobacco?: No - Intervention Smoking Cessation Referral:: No Individual Education/Counseling:: No Education Schedule Given:: Yes - Education Attended class for:: Treating Heart Disease, How The Heart Works, What it means to have Heart Disease, How Coronary Artery Disease is Diagnosed, Heart Procedures, What Heart Medications Do, Risk Factors & Modifications, Living an Active Life, Nutrition Psychosocial - Initial Assess - Target Goals Target Goals: Assess presence or absence of depression. Using a valid screening tool, maximizes coping skills. Positive support system - Psychosocial Test Tool Used:: HANDS Depression Questionnaire - Assistive Devices Fall Risk Assessed:: Yes - no treadmill Psychosocial - 60-Day Assess - Target Goals Target Goals: Assess presence or absence of depression. Using a valid screening tool, maximizes coping skills. Positive support system - Stages of Change Stages of Change:: Action - Psychosocial Test Tool Used:: HANDS Depression Questionnaire - Intervention PS - Interventions: Yes Attend Stress Management Classes, Yes Uses Stress Management Skills, No Referral to Mental Health, No Referral to [facility] Case Management, No Referral to Physician - Education Attended classes for:: Coping techniques, Signs & symptoms of depression, Stress management, Relaxation techniques - Patient/Program Goal Preventative Medication(s):: Aspirin - patinet reports taking medications as prescribed., SABINA inhibitor, Clopidogrel, Beta ivy, Statin/lipid - Assistive Devices Assistive Devices:: Cane, Walker Fall Risk Assessed:: Yes Patient Health Questionnaire 60-Day Re-eval Assessment 1. Little interest or pleasure in doing things: Several days 2. Feeling down, depressed, or hopeless: More than half the days 3. Trouble falling or staying asleep, or sleeping too much: More than half the days 4. Feeling tired or having little energy: More than half the days 5. Poor appetite or overeating: Not at all 6. Feeling bad about yourself -- or that you are a failure or have let yourself or your family down: Several days 7. Trouble concentrating on things, such as reading the newspaper or watching television: Several days 8. Moving or speaking so slowly that other people could have noticed. Or the opposite - being so fidgety or restless that you have been moving around a lot more than usual: Not at all 9. Thoughts that you would be better off , or of hurting yourself in some way: Not at all - Patient could benefit from Behavioral Health Counseling and emotional support Total Score: 9 Self-Efficacy 60-Day Re-eval Assessment We would like to know how confident you are in doing certain activities. Please select your confidence level for:: Select your confidence level for the following using the scale 1-10 where 1 is not at all confident and 10 is totally confident. Your score is the average of all 6 responses. Fatigue: How confident are you that you can keep the fatigue caused by your disease from interfering with the things you want to do? Select Number: 5 Physical Discomfort or Pain: How confident are you that you can keep the physical discomfort or pain of your disease from interfering with the things you want to do? Select Number: 4 Emotional Distress: How confident are you that you can keep the emotional distress caused by your disease from interfering with the things you want to do? Select Number: 6 Other Symptoms or Health Problems: How confident are you that you can keep other symptoms or health problems from interfering with the things you want to do? Select Number: 5 Different Tasks and Activities: How confident are you that you can do the different tasks and activities needed to manage your health condition so as to reduce your need to see a doctor? Select Number: 6 Medication: How confident are you that you can do things other than just taking medication to reduce how much your illness affects your everyday life? Select Number: 9 Total Score:: 5
[2019-05-02 08:26] VITALS: BP 128/60; BP 144/62
== END 2019-05-23 23:59 ==
LOC: CR 11:30
PROVIDERS: Family Provider Family Medicine Geriatric Medicine; PCP Family Medicine Geriatric Medicine; Referring Provider Internal Medicine Cardiovascular Disease; Visit Provider Internal Medicine Cardiovascular Disease
DX: I21.4 Non-ST elevation (NSTEMI) myocardial infarction (principal); I25.728 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(s) with other forms of angina pectoris; Z98.61 Coronary angioplasty status
CPT/HCPCS: 93798

== ENCOUNTER 2019-05-24 20:47 | Inpatient (IN) | payer MEDICARE, MEDICAID, SELFPAY ==
[2019-04-14 07:52] VITALS: BMI 37.2
[2019-05-24] VITALS (8 sets, daily range): BP systolic 138–169; BP diastolic 66–84; PULSE 75–84; RESP 16–22; TEMP 36.9; O2SAT 93–100; BMI 39.0; BMI 38.4
--- NOTE | 2019-05-24 20:54 | EKG12_ITS ---
Test Reason : CP Blood Pressure : / mmHG Vent. Rate : 081 BPM Atrial Rate : 081 BPM P-R Int : 190 ms QRS Dur : 092 ms QT Int : 412 ms P-R-T Axes : 055 -54 102 degrees QTc Int : 478 ms Normal sinus rhythm Possible Left atrial enlargement Left axis deviation Left ventricular hypertrophy ST & T wave abnormality, consider lateral ischemia Abnormal ECG Confirmed by SAMUEL ZARAGOZA, DESTINEE ([id number]), editor news MYRIAM PEREZ ([id number]) on 05/27/2019 8:36:11 AM Referred By: JAYME Confirmed By:DESTINEE BAKER MD
--- NOTE | 2019-05-24 20:55 | RAD_ITS ---
STUDY: X-RAY CHEST REASON FOR EXAM: Female, 58 years old. STERNAL CP TECHNIQUE: Single AP portable view of the chest. 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 There is a right lower lobe infiltrate. There is no demonstrated pleural abnormality. There is moderate cardiac enlargement. Status post sternotomy changes are noted. Normal mediastinum and branden. Normal visualized pulmonary arteries. There are calcified plaques in the aortic arch. Normal visualized thoracic spine. There mild degenerative changes of the shoulder joints. Cervical fusion with rods and interpeduncular screws. There is no demonstrated abnormality of the visualized soft tissue structures of the upper abdomen. RAD/Chest 1 View (Portable) IMPRESSION: Right lower lobe infiltrate. Moderate cardiomegaly. Status post sternotomy. Calcified plaques of the aortic arch. Status post posterior fusion with rods and interpeduncular screws of the visualized lower cervical spine. Electronically Signed: Harley Ojeda MD at 21:12 EST , Service support ,
--- NOTE | 2019-05-24 21:06 | ED.VISSUMM ---
- ER Visit Summary Date of Service: 05/24/19 Chief Complaint: Sternal chest pain History of Present Illness: The patient is a 58 F 3 of end-stage renal disease dialysis, CAD with ME with 3 cardiac stents and prior coronary artery bypass surgery 2014. Insulin-dependent diabetic. Patient is on Plavix and aspirin. Patient states that she started having chest pain about half an hour prior to arrival. This is at rest. Similar to her prior cardiac chest pain. She denies dyspnea or diaphoresis. She denies nausea. Currently still having pain. Physical Examination: Middle-aged female laying chest pain. Vital signs are stable afebrile. Pulse ox are percent on room air no hypoxia. H EENT exam unremarkable. Neck nontender no lymphadenopathy. Lungs clear to auscultation bilaterally. Heart regular rhythm no murmur. Rate about 80. Chest wall nontender. Prior sternotomy. Well-healed. Chest wall nontender. Abdomen is soft nontender normal bowel sounds no peritoneal signs. Patient is moving all 4 extremities. Calves are nontender without edema or cords. Neurologically she is awake and alert with no focal motor deficits. Test Results: EKG shows a normal sinus rhythm rate 83 with no signs of ST elevation. She does have ST depression in leads V4 5 6 and also in lead II. Inverted T waves in aVL. I am awaiting an old EKG for comparison. Chest x-ray shows cardiomegaly. Normal mediastinum. Prior sternotomy. CBC white count of 4. Hemoglobin 12. Chemistries unremarkable except she has renal failure and BUN is 38 creatinine is 3.46 that is all old. PT/INR normal. Troponin normal. Repeat EKG showed a sinus rhythm rate of [address] in leads V45 and 6 has resolved. The repeat EKG is similar to an old EKG. Emergency Department Course and Treatment: Middle-aged female with known coronary disease with concerning chest pain. Will receive aspirin and nitro. Will need to be readmitted. Treatment Plan: Repeat exam at 20 2:10 PM patient is pain-free after sublingual nitro series. Disposition: admission Impression: Acute chest pain History of CAD, ME, cardiac stents, bypass surgery. History of end-stage renal disease and dialysis. History of diabetes This note was generated with [employer] dictation software. It may contain incorrect words, spelling, and punctuation that were not noted in review of the chart prior to signing ED Disposition - Plan for ED Patient: Referrals: Brayden King Chi, MD [Primary Care Provider] -
[2019-05-24] MEDS: Aspirin 81 MG TAB.CHEW 324 MG PO (21:10)
[2019-05-24 21:11] LABS: Absolute Lymphocyte Count 1.59 X10^3/uL (0.83-4.51); Absolute Neutrophil Count 2.4 X10^3/uL (2.0-7.7); Basophil# 0.04 X10^3/uL; Basophil% 0.8 % (0-1); Eosinophil# 0.17 X10^3/uL; Eosinophils% 3.6 % (0-5); Hematocrit 39.8 % (37-47); Hemoglobin 12.3 g/dL (12.0-15.0); Lymphocyte # 1.59 X10^3/ul (4.0); Lymphocyte % 33.7 % (19-41); Mean Corp Hgb Conc 30.9 g/dL (32-36); Mean Corpuscular Hgb 28.9 pg (27.0-32.0); Mean Corpuscular Volume 93.4 fL (81-99); Mean Platelet Vol. 10.2 fl (6.2-12.0); Monocyte# 0.56 X10^3/uL; Monocyte% 11.9 % (0-10); NRBC Flagged by Analyzer 0 % (0-5); Neutrophil # 2.35 X10^3/uL (2.7-7.7); Neutrophil % 49.8 % (47-70); Platelet Count 260 K/mm3 (150-450); RBC Distribution Width CV 15.9 % (11.6-14.6); RBC Distribution Width SD 55.3 fl (35.1-43.9); Red Blood Count 4.26 M/mm3 (4.2-5.4); White Blood Count 4.7 K/mm3 (4.4-11.0)
[2019-05-24] MEDS: Nitroglycerin SL (ED/IMG/CATH) 0.4 MG TABLET SUBLINGUAL (21:11)
[2019-05-24 21:34] LABS: Anion Gap 5 (5-15); BUN 38 mg/dL (7-18); Calcium,Total 9.7 mg/dL (8.5-10.1); Chloride 100 mmol/L (98-107); Creatinine, Serum 3.46 mg/dL (0.55-1.02); EST Glomerular Filtration Rate 14 mL/min (>60); Est Glom Filt Rate - Afr Amer 17 mL/min (>60); Estimated Creatinine Clearance 12.57 ml/min; Glucose 237 mg/dL (74-106); Potassium 4.5 mmol/L (3.5-5.1); Sodium Level 138 mmol/L (136-145)
[2019-05-24 21:53] LABS: International Normalized Ratio 1.1; Prothrombin Time (Protime)PT. 14.1 SECONDS (11.7-14.9)
[2019-05-24] MEDS: Ondansetron 4 MG/2 ML Vial IV (22:26)
[2019-05-24] MEDS: Morphine 4 MG/ML Syringe IV (22:28)
[2019-05-24] MEDS: Nitroglycerin Oint 1 INCH PACKET TRANSDERM. (22:32)
[2019-05-24 23:00] LABS: Bedside Glucose 213 mg/dL (70-110)
[2019-05-25] VITALS (17 sets, daily range): BP systolic 110–144; BP diastolic 52–68; PULSE 52–75; RESP 12–18; TEMP 36.4–37; O2SAT 94–100
--- NOTE | 2019-05-25 00:26 | EKG12_ITS ---
Test Reason : CP Blood Pressure : / mmHG Vent. Rate : 071 BPM Atrial Rate : 071 BPM P-R Int : 168 ms QRS Dur : 082 ms QT Int : 432 ms P-R-T Axes : 051 -47 126 degrees QTc Int : 469 ms Normal sinus rhythm Left axis deviation Left ventricular hypertrophy ST & T wave abnormality, consider lateral ischemia Prolonged QT Abnormal ECG Confirmed by SAMUEL ZARAGOZA, DESTINEE ([id number]), publication editor MADDY STERLING ([id number]) on 05/27/2019 11:00:51 AM Referred By: DR HINDS Confirmed By:DESTINEE BAKER MD
[2019-05-25] MEDS: Atorvastatin Calcium 80 MG Tablet PO ×2 (01:05→21:10)
[2019-05-25] MEDS: Isosorbide Mononitrate 60 MG Tablet PO ×3 (01:05→21:11)
[2019-05-25] MEDS: Gabapentin 300 MG Capsule PO ×2 (01:05→21:10)
[2019-05-25] MEDS: AMOXICILLIN 500 MG CAPSULE PO ×2 (01:05→06:50)
[2019-05-25] MEDS: Timolol 0.5% 5ML OPTH.BTL 1 DRP RIGHT EYE ×3 (01:06→21:12)
[2019-05-25] MEDS: Carvedilol 12.5 MG Tablet PO ×3 (01:06→21:10)
--- NOTE | 2019-05-25 01:43 | HP.PCM_ITS ---
Problem List (1) Chest pain Status: Acute Qualifiers: Chest pain type: precordial pain Qualified Code(s): R07.2 - Precordial pain History of Present Illness Date of Admission: 05/24/19 Chief Complaint: Chest pain The patient is a 58 year old F seen in the emergency room at [facility] with a chief complaint of precordial chest pain in the center of her chest just to the left of her sternum which started at 8 PM on 05/24/2019. She described the pain as being dull in nature. Patient denied any radiation of the pain into her arm or into the neck or jaw area. Patient states that when taking a deep breath the pain was worse. She took 2 nitroglycerin sublingual at home and was given 2 nitroglycerin on arrival to the emergency room here which caused the chest pain to subside. Patient denies any shortness of breath. Patient has a complicated cardiac history including coronary artery bypass and multiple stent placements-the last time she had stents placed was here at [facility] on 02/18/2019 and again on 02/20/2019. Patient's other medical history includes type 2 diabetes and end-stage renal disease on dialysis. EKG obtained in the emergency room on arrival revealed ST-T wave depressions in V4 V5 and V6, repeat EKG done approximately 20 minutes later did not show these same ST depressions. Patient's chest x-ray was read out as showing a right lo wer lobe infiltrate-I did not agree with this read out, it also showed moderate cardiomegaly but no other significant finding. Labs obtained showed a normal white blood cell count, chemistry profile was remarkable for creatinine of 3.46, BUN of 38, and a glucose of 237. Patient's troponin was normal. Patient had a brief return of chest discomfort while she was in the emergency room, I gave her 4 mg of morphine IV and put an inch of Nitropaste on her chest and this resolved the chest discomfort. Patient was admitted to PCU for unstable angina, I notified cardiology of a consultation, patient's medications were continued, I did not place the patient on IV heparin-I did not think this was necessary Past Medical History Past Medical History (Chronic Problems): Chronic Problems (Last Reviewed 04/14/19 @ 12:39 by Dorothy Rizzo NP-C) Glaucoma (Chronic) GERD (gastroesophageal reflux disease) (Chronic) Diabetic retinopathy (Chronic) DDD (degenerative disc disease) (Chronic) Anemia in chronic renal disease (Chronic) Chronic kidney disease with end stage renal failure on dialysis (Chronic) History of non-ST elevation myocardial infarction (NSTEMI) (Chronic) Nonrheumatic mitral (valve) insufficiency (Chronic) Secondary pulmonary arterial hypertension (Chronic) Chronic diastolic (congestive) heart failure (Chronic) 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) CABG x3- KINCAID-LAD, SVG-CX, SVG-RCA 06/25/14 @ [facility] AV fistula (Chronic) Morbid obesity (Chronic) Diabetes mellitus type 2 in obese (Chronic) End-stage renal disease on hemodialysis (Chronic) Hypertension (Chronic) HLD (hyperlipidemia) (Chronic) COPD (chronic obstructive pulmonary disease) (Chronic) CLAUDIO (obstructive sleep apnea) (Chronic) 17/11 cmH2O Hypokalemia (Chronic) Secondary hyperparathyroidism of renal origin (Chronic) Medical History: Medical History (Last Reviewed 04/14/19 @ 12:39 by Dorothy Rizzo, [employer]-C) Glaucoma (Chronic) H40.9 GERD (gastroesophageal reflux disease) (Chronic) K21.9 Diabetic retinopathy (Chronic) E11.319 DDD (degenerative disc disease) (Chronic) Anemia in chronic renal disease (Chronic) N18.9, D63.1 History of non-ST elevation myocardial infarction (NSTEMI) (Chronic) I25.2 Nonrheumatic mitral (valve) insufficiency (Chronic) I34.0 Secondary pulmonary arterial hypertension (Chronic) I27.21 Chronic diastolic (congestive) heart failure (Chronic) I50.32 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) I25.728 CABG x3- KINCAID-LAD, SVG-CX, SVG-RCA 06/25/14 @ [facility] NSTEMI (non-ST elevated myocardial infarction) (Resolved) I21.4 AV fistula (Chronic) I77.0 Morbid obesity (Chronic) E66.01 Diabetes mellitus type 2 in obese (Chronic) E11.9, E66.9 End-stage renal disease on hemodialysis (Chronic) N18.6, Z99.2 Hypertension (Chronic) I10 HLD (hyperlipidemia) (Chronic) E78.5 COPD (chronic obstructive pulmonary disease) (Chronic) J44.9 CLAUDIO (obstructive sleep apnea) (Chronic) G47.33 17/11 cmH2O Hypokalemia (Chronic) E87.6 Secondary hyperparathyroidism of renal origin (Chronic) N25.81 Abnormal stress test (Resolved) R94.39 Acute respiratory failure with hypoxemia (Resolved) J96.01 Acute respiratory failure with hypoxia (Resolved) J96.01 Arteriovenous fistula stenosis (Resolved) T82.858A COPD with acute exacerbation (Resolved) J44.1 Non-ST elevation MS (NSTEMI) (Resolved) I21.4 Cardiomegaly (Inactive) I51.7 Allergies lisinopril Allergy (Verified 04/14/19 12:25) Unknown ranitidine HCl [From Zantac] Allergy (Verified 04/14/19 12:25) Hives azithromycin Adverse Reaction (Verified 04/14/19 12:25) Nausea/Vom/Diarrhea Home Medications: Ambulatory Orders Medication Instructions Recorded Famotidine [Pepcid] 40 mg PO BID 06/07/17 Gabapentin [Neurontin] 300 mg PO QHS 06/07/17 Pyridoxine HCl (Vitamin B6) [B-6] 100 mg PO DAILY 06/07/17 Sennosides [Senna] 8.6 mg PO QHS PRN 06/07/17 ergocalciferol (vitamin D2) 1,250 50,000 unit PO QMONTH cap 08/01/17 mcg (50,000 unit) capsule Citalopram Hydrobromide 20 mg PO DAILY 11/15/18 [Citalopram HBr] Folic Acid/Vitamin B Comp W-C 1 cap PO DAILY 11/15/18 [Nephrocaps, Renaphro] Timolol 0.5% [Timoptic] 1 drp RIGHT EYE BID 11/15/18 Insulin Glargine,Hum.rec.anlog 20 unit SQ DAILY #0 11/19/18 [Jamal Estevez] aspirin 81 mg chewable tablet 81 mg PO DAILY@0800 #90 tab 03/06/19 albuterol sulfate 90 mcg/actuation 1 puff INHALATION Q6H PRN PRN #1 04/14/19 aerosol inhaler inhaler Amoxicillin [Amoxil] 500 mg PO Q8H 05/24/19 Atorvastatin Calcium 80 mg PO QHS 05/24/19 Carvedilol 12.5 mg PO BID 05/24/19 Clopidogrel Bisulfate [Clopidogrel] 75 mg PO DAILY 05/24/19 Isosorbide Mononitrate [Isosorbide 60 mg PO BID 05/24/19 Mononitrate ER] Surgical History: Surgical History (Last Reviewed 04/14/19 @ 12:39 by Dorothy Rizzo NP-C) History of back surgery (Resolved) Z98.890 History of hysterectomy (Resolved) Z90.710 History of cataract surgery (Resolved) Z98.49 angioplasty of artriovenous fistula (Resolved) AVF placement (Resolved) Onset Date: ~07/01/15 Postsurgical percutaneous transluminal coronary angioplasty (PTCA) status (Resolved) Onset Date: 02/18/19 Z98.61 06/12/2017:Triple vessel CAD of the LM, LCX, LAD; Persistent distal anastamotic lesion from SVG to OM#2; Possibly signifcant ischemia in DIAG branch downstream from critical LM lesion. Successful PCI with PTCA to the DISTAL ANASTOMOTIC SITE OF SVG TO OM WITH 1.5, THEN 2.0 BALLOON; 85%-->10%, NO DISSECTION OR PERFORATION. No additional stenting performed out of concern for restricting retrograde blood flow to [place] AV LCX, as well as lack of anginal symptoms during prolonged balloon inflation. Culprit artery may be [place] DIAG#1 due to LM disease, but to correct LM disease may jeopardize patent KINCAID. 02/18/2019:Triple vessel CAD of the LAD, LCX, RCA; Widely patent KINCAID to LAD; Widely patent SVG to OM with well healed distal SVG anastomitic site from previous PCI/POBA. Successful PTCA/MIGUEL distal RCA with a 2.25 x 16 Promus Synergy, 75%-->0%, no dissection. Pt had identical chest pressure during stent deployment. Successful PTCA/MIGUEL Proximal RCA with a 2.5 x 20 Promus Synergy, post dilated throughout with a 2.5 x 8 NC Balloon; 75%-->0%, no dissection. 02/20/2019:Successful PTCA/MIGUEL distal RCA with a 2.25 x [address] ent at 8ATM, then inflated to 12 [place] in proximal stent to insure proper appoistion with previously placed distal RCA stent. Successful PCI with PTCA to the proximal/ostial RCA to insure that no recen tly placed stent struts were crimped during this procedure. Not a true STEMI; Pt had ACS with recent stenting 2 days ago with dynamic ECG changes without overt ST Elevation. Aortocoronary bypass status (Resolved) Onset Date: 06/25/14 Z95.1 CABG x3- KINCAID-LAD, SVG-CX, SVG-RCA 06/25/14 @ [facility] Surgical History: angioplasty, cataract, coronary bypass surgery - CABG x 3., hysterectomy, - - AVF placement, back surgery. Psychiatric History: Anxiety, Depression [employer] History: No pertinent [employer] history Lives: Alone Smoking Status: Former smoker Tobacco Use: Non-smoker Alcohol: None Drugs: None - *Family History Paternal Family History: Family History (Last Reviewed 04/14/19 @ 12:39 by MAU Haas) Father Heart disease Hypertension Prostate cancer Mother Hypertension History Items: Cancer - prostate, Heart Disease, Hypertension Sibling Family History: Family History (Last Reviewed 04/14/19 @ 12:39 by MAU Haas) Father Heart disease Hypertension Prostate cancer Mother Hypertension History Items: Diabetes Maternal Family History: Family History (Last Reviewed 04/14/19 @ 12:39 by MAU Haas) Father Heart disease Hypertension Prostate cancer Mother Hypertension History Items: Hypertension Review of Systems Constitutional: Denies: Anorexia, Chills, Fever, Night Sweats, Malaise, Weakness, Weight Change, Fatigue Eyes: Denies: Cataracts, Conjunctivae Inflammation, Double vision, Drainage, Redness, Vision Change HEENT: Denies: Difficulty Swallowing, Dysphasia, Ear Pain, Eye Pain, Hearing Changes, Nasal bleeding, Nasal Congestion, Post Nasal Drip Cardiovascular: Reports: Chest Pain. Denies: Claudication, Chest Pressure, Chest Tightness, Edema, Orthopnea, Palpitations, Paroxysmal Noc. Dyspnea, Syncope Respiratory: Denies: Cough, Hemoptysis, Pleuritic Pain, Shortness of Breath, Shortness of breath at rest, Shortness of breath upon exertion, Sputum production Gastrointestinal: Denies: Abdominal Pain, Constipation, Diarrhea, Hematemesis, Hematochezia, Nausea, Melena, Vomiting Genitourinary: Denies: Dysuria, Frequency, Hematuria, Hesitancy, Urgency Gynecological: Denies: Breast symptoms Musculoskeletal: Denies: Foot Pain, Hand Pain, Joint Pain, Joint stiffness, Joint swelling, Joint Tenderness, Leg Pain Skin: Denies: Dryness, Jaundice, Pruritis, Rash Neurological: Denies: Blurred vision, Double vision, Change in Speech, Slurred speech, Difficulty swallowing, Focal weakness, Headaches, Incoordination, Numbness, Tingling Psychiatric: Denies: Anxiety, Depression, Homicidal Ideations, Suicidal Ideations Endocrine: Denies: Change in Body Habitus, Heat/ Cold Intolerance, Polydipsia, Polyuria Hematologic/ Lymphatic: Denies: Adenopathy, Anemia, Easy Bruising, Easy Bleeding, Petechiae, Purpura VTE Information - Inpt Only VTE Present on Admission: No VTE Mechan Device Prophylaxis: None VTE Pharm Prophylaxis ordered?: Yes - Physical Exam Vitals/I&O's: Vital Signs Temp Pulse Resp BP Pulse Ox 98.5 F 75 16 138/70 H 93 05/24/19 22:50 05/24/19 22:58 05/24/19 22:50 05/24/19 22:50 05/24/19 22:50 Oxygen Flow Rate (L/min) 2 Oxygen Delivery Method Room Air Weight: 89.2 kg Body Mass Index (BMI) 38.4 Finger Stick Blood Glucose 275 Intake and Output for Last 24 Hours 05/23/19 05/24/19 05/25/19 23:59 23:59 23:59 Intake Total 240 / 240 Output Total 0 / 0 Balance 240 / 240 General: Alert, Oriented x3, Cooperative, No apparent distress, Well developed, Well nourished HEENT: Atraumatic, PERRLA, EOMI, Normocephalic Oral: Moist Mucosa Neck: Supple, No JVD, Trachea Midline, Thyroid Normal Size and Texture Lungs: Clear to auscultation, Normal air movement, No rhonchi, No wheeze, No rales Cardiovascular: Regular rate, Regular Rhythm, Normal S1, Normal S2, No murmurs, PMI Normal, No rub noted, No Gallop Abdomen: Bowel Sounds Present, Soft, Non Tender, Non-Distended Extremities: No clubbing, No cyanosis, No edema, Capillary Refill Less than 3 Seconds Skin: No rashes, No breakdown Musculoskeletal: No Tenderness to Palpation of Joints or Extremities, No Muscle Wasting Neurological: Cranial nerves II-XII grossly intact, Neuro grossly intact, Sensory exam intact to light touch and pain Psych/Mental Status: Normal Affect, Appropriate, Alert and oriented to time, place, person, mood and affect Laboratory Results 05/24/19 20:55: WBC 4.7, RBC 4.26, Hgb 12.3, Hct 39.8, MCV 93.4, MCH 28.9, MCHC 30.9 L, RDW Std Deviation 55.3 H, RDW Coeff of Lauren 15.9 H, Plt Count 260, MPV 10.2, Immature Gran % (Auto) 0.200, Neut % (Auto) 49.8, Lymph % (Auto) 33.7, [place] % (Auto) 11.9 H, Eos % (Auto) 3.6, Baso % (Auto) 0.8, Absolute Neuts (auto) 2.4, Absolute Lymphs (auto) 1.59, Nucleated RBC % 0 05/24/19 20:55: PT Cancelled, INR Cancelled 05/24/19 20:55: Sodium 138, Potassium 4.5, Chloride 100, Carbon Dioxide 33.0 H, Anion Gap 5, BUN 38 H, Creatinine 3.46 H, Estim Creat Clear Calc 12.57, Est GFR (MDRD) Af Amer 17 L, Est GFR (MDRD) Non-Af 14 L, BUN/Creatinine Ratio 11.0, Glucose 237 H, Calcium 9.7, Troponin I < 0.015 05/24/19 21:35: PT 14.1, INR 1.1 05/24/19 22:54: POC Glucose 213 H 05/25/19 00:08: Troponin I 0.067 H Current Medications Amoxicillin (Amoxil) 500 mg PO Q8H [facility] Last Admin: 05/25/19 01:05 Dose: 500 mg Documented by: Aspirin (Aspirin, Baby) 81 mg PO DAILY@0800 [facility] Atorvastatin Calcium (Lipitor) 80 mg PO QHS [facility] Last Admin: 05/25/19 01:05 Dose: 80 mg Documented by: Carvedilol (Coreg) 12.5 mg PO BID [facility] Last Admin: 05/25/19 01:06 Dose: 12.5 mg Documented by: Citalopram Hydrobromide (Celexa) 20 mg PO DAILY [facility] Clopidogrel Bisulfate (Plavix) 75 mg PO DAILY [facility] Famotidine (Pepcid) 40 mg PO BID [facility] Gabapentin (Neurontin) 300 mg PO QHS [facility] Last Admin: 05/25/19 01:05 Dose: 300 mg Documented by: Glucagon () 1 mg IM .X1 PRN PRN Reason: Hypoglycemia Heparin Sodium (Porcine) (Heparin Na) 5,000 unit SC Q12 [place] Sodium Chloride () 250 mls @ 15 mls/hr IV .[id number] PRN PRN Reason: Saline Flush Sodium Chloride () 250 mls @ 15 mls/hr IV .[id number] PRN PRN Reason: Additional IVPB Infusion Dextrose (Dextrose 10%-Water) 250 mls @ 999 mls/hr IV .Q16M PRN; Protocol PRN Reason: HYPOGLYCEMIA Insulin Glargine (Lantus (Bk)) 20 units SC DAILY [facility] Insulin Human Lispro (Humalog Kwikpen (Bk)) 0 unit SC ACHS [facility]; Protocol Isosorbide Mononitrate (Imdur) 60 mg PO BID [facility] Last Admin: 05/25/19 01:05 Dose: 60 mg Documented by: Morphine Sulfate () 2 mg IV Q3H PRN PRN PRN Reason: Pain Score 6-10/10 Multivit/Ca Carb/B Cmplx/FA/Prenat (Nephrocaps, Renaphro) 1 capsule PO DAILY [facility] Nitroglycerin (Nitrostat) 0.4 mg SUBLINGUAL Q5M PRN PRN Reason: CARDIAC/CHEST PAIN Ondansetron HCl (Zofran) 4 mg IV Q8H PRN PRN PRN Reason: NAUSEA/VOMITING Pyridoxine HCl (Vitamin B-6) 100 mg PO DAILY [facility] Senna (Senokot) 1 tablet PO QHS PRN PRN PRN Reason: Constipation Sodium Chloride () 10 - 40 ml IV UD PRN PRN Reason: SALINE FLUSH Timolol Maleate (Timoptic) 1 drop RIGHT EYE BID [facility] Last Admin: 05/25/19 01:06 Dose: 1 drop Documented by: Assessment/Plan All Active Problems (Last Updated 05/25/19 @ 01:54 by Juan Najera DO) History of back surgery (Resolved) History of hysterectomy (Resolved) History of cataract surgery (Resolved) angioplasty of artriovenous fistula (Resolved) AVF placement (Resolved ~07/01/15) Sepsis due to pneumonia (Resolved) Healthcare-associated pneumonia (Resolved) Hyponatremia (Resolved) Hyperglycemia due to type 2 diabetes mellitus (Acute) Chest pain (Acute) Postsurgical percutaneous transluminal coronary angioplasty (PTCA) status (Resolved 02/18/19) Aortocoronary bypass status (Resolved 06/25/14) NSTEMI (non-ST elevated myocardial infarction) (Resolved) Abnormal stress test (Resolved) Acute respiratory failure with hypoxemia (Resolved) Acute respiratory failure with hypoxia (Resolved) Arteriovenous fistula stenosis (Resolved) COPD with acute exacerbation (Resolved) Non-ST elevation MS (NSTEMI) (Resolved) #1 unstable angina-patient was admitted to PCU, she will be seen in consultation by cardiology, she will continue on her present medications, she will most probably need a cardiac catheterization on 05/26/2019 #2 coronary artery disease #3 type 2 diabetes-blood sugars will be monitored, sliding scale insulin will be used if necessary #4 end-stage renal disease on chronic dialysis-patient had dialysis on 05/24/2019, Dr. Rollins will see the patient in consultation #5 hyperlipidemia #6 obstructive sleep apnea-patient uses BiPAP at home #7 pulmonary hypertension #8 ischemic cardiomyopathy-EF 45% Code Visit Inpatient E&M: 33378 Init Hosp L3
[2019-05-25] MEDS: Insulin Lispro 100 UNIT/ML INSULN.PEN SC ×3 (06:50→21:11)
[2019-05-25 06:56] LABS: Bedside Glucose 192 mg/dL (70-110)
[2019-05-25] MEDS: Citalopram 20 MG Tablet PO (09:29)
[2019-05-25] MEDS: Aspirin 81 MG TAB.CHEW PO (09:29)
[2019-05-25] MEDS: Heparin Injection (Vial) 5,000 UNIT/ML VIAL 5000 UNIT SC ×2 (09:29→21:11)
[2019-05-25] MEDS: Pyridoxine HCl 100 MG Tablet PO (09:31)
[2019-05-25] MEDS: Folic Acid/Vitamin B Comp W-C 1 Capsule 1 CAP PO (09:31)
[2019-05-25] MEDS: Famotidine 20 MG Tablet 40 MG PO ×2 (09:31→21:10)
[2019-05-25] MEDS: Clopidogrel Bisulfate 75 MG Tablet PO (09:31)
--- NOTE | 2019-05-25 10:09 | PCM.HOSP.N ---
Hospitalist Note Patient came yesterday with the chest pain that is started in the evening. As per the patient it lasted for about an hour. This not associated with shortness of breath. Chest pain relieved with nitroglycerin. Patient also completed 7 days of amoxicillin for her tooth pain. On exam, no chest pain or tenderness. No shortness of breath. Vitals on baseline. EKG normal sinus rhythm with LVH no significant ST-T changes as compared to January 2019 EKG. Patient has lateral T inversion since January 2019. On oral exam: Partial broken tooth on right upper and lower jaw. Inflammation of gums or purulent discharge. Cardiopulmonary exam normal. Left arm AV fistula First troponin normal. Second slightly elevated 0.336. Patient elevated troponin probably secondary to ESRD on hemodialysis Education Liaison has been consulted. There is concern of unstable angina as patient has prolonged chest pain. Antibiotic, amoxicillin is discontinued Medications reviewed. Laboratory Results 05/24/19 20:55: WBC 4.7, RBC 4.26, Hgb 12.3, Hct 39.8, MCV 93.4, MCH 28.9, MCHC 30.9 L, RDW Std Deviation 55.3 H, RDW Coeff of Lauren 15.9 H, Plt Count 260, MPV 10.2, Immature Gran % (Auto) 0.200, Neut % (Auto) 49.8, Lymph % (Auto) 33.7, [place] % (Auto) 11.9 H, Eos % (Auto) 3.6, Baso % (Auto) 0.8, Absolute Neuts (auto) 2.4, Absolute Lymphs (auto) 1.59, Nucleated RBC % 0 05/24/19 20:55: PT Cancelled, INR Cancelled 05/24/19 20:55: Sodium 138, Potassium 4.5, Chloride 100, Carbon Dioxide 33.0 H, Anion Gap 5, BUN 38 H, Creatinine 3.46 H, Estim Creat Clear Calc 12.57, Est GFR (MDRD) Af Amer 17 L, Est GFR (MDRD) Non-Af 14 L, BUN/Creatinine Ratio 11.0, Glucose 237 H, Calcium 9.7, Troponin I < 0.015 05/24/19 21:35: PT 14.1, INR 1.1 05/24/19 22:54: POC Glucose 213 H 05/25/19 00:08: Troponin I 0.067 H 05/25/19 02:34: Troponin I 0.336 H 05/25/19 06:46: POC Glucose 192 H
[2019-05-25] MEDS: 0.9% Saline Lock 10 ML Syringe IV (11:39)
[2019-05-25] MEDS: Ondansetron 4 MG/2 ML Vial IV (11:39)
[2019-05-25] MEDS: Morphine 2 MG/ML Syringe IV ×2 (11:40→19:49)
[2019-05-25 12:05] LABS: Bedside Glucose 188 mg/dL (70-110)
--- NOTE | 2019-05-25 12:31 | CON.PCM_ITS ---
Problem List (1) NSTEMI (non-ST elevated myocardial infarction) Status: Acute (2) CAD in [place] artery Status: Chronic (3) Postsurgical percutaneous transluminal coronary angioplasty (PTCA) status Status: Resolved Comment: 06/12/2017:Triple vessel CAD of the LM, LCX, LAD; Persistent distal anastamotic lesion from SVG to OM#2; Possibly signifcant ischemia in DIAG branch downstream from critical LM lesion. Successful PCI with PTCA to the DISTAL ANASTOMOTIC SITE OF SVG TO OM WITH 1.5, THEN 2.0 BALLOON; 85%-->10%, NO DISSECTION OR PERFORATION. No additional stenting performed out of concern for restricting retrograde blood flow to [place] AV LCX, as well as lack of anginal symptoms during prolonged balloon inflation. Culprit artery may be [place] DIAG#1 due to LM disease, but to correct LM disease may jeopardize patent KINCAID. 02/18/2019:Triple vessel CAD of the LAD, LCX, RCA; Widely patent KINCAID to LAD; Widely patent SVG to OM with well healed distal SVG anastomitic site from previous PCI/POBA. Successful PTCA/MIGUEL distal RCA with a 2.25 x 16 Promus Synergy, 75%-->0%, no dissection. Pt had identical chest pressure during stent deployment. Successful PTCA/MIGUEL Proximal RCA with a 2.5 x 20 Promus Synergy, post dilated throughout with a 2.5 x 8 NC Balloon; 75%-->0%, no dissection. 02/20/2019:Successful PTCA/MIGUEL distal RCA with a 2.25 x 16 Promus Synergy stent at 8ATM, then inflated to 12 milton in proximal stent to insure proper appoistion with previously placed distal RCA stent. Successful PCI with PTCA to the proximal/ostial RCA to insure that no recently placed stent struts were crimped during this procedure. Not a true STEMI; Pt had ACS with recent stenting 2 days ago with dynamic ECG changes without overt ST Elevation. (4) Aortocoronary bypass status Status: Resolved Comment: CABG x3- KINCAID-LAD, SVG-CX, SVG-RCA 06/25/14 @ [facility] (5) Chronic diastolic (congestive) heart failure Status: Chronic (6) HLD (hyperlipidemia) Status: Chronic Qualifiers: Hyperlipidemia type: unspecified Qualified Code(s): E78.5 - Hyperlipidemia, unspecified (7) Hypertension Status: Chronic Qualifiers: Hypertension type: essential hypertension Qualified Code(s): I10 - Essential (primary) hypertension (8) Diabetes mellitus type 2 in obese Status: Chronic (9) Chronic kidney disease on chronic dialysis Status: Acute (10) COPD (chronic obstructive pulmonary disease) Status: Chronic Qualifiers: COPD type: COPD with acute exacerbation Qualified Code(s): J44.1 - Chronic obstructive pulmonary disease with (acute) exacerbation (11) CLAUDIO (obstructive sleep apnea) Status: Chronic Comment: 17/11 cmH2O Reason for Consult Date of Consultation: 05/25/19 History of Present Illness: The patient is a 58 year old female with a history of underlying CAD, PCI, CABG, CHF (possible combination of systolic/diastolic mediated) superimposed upon hyperlipidemia, hypertension, diabetes mellitus, chronic renal insufficiency/chronic hemodialysis, COPD, and obstructive sleep apnea who presents for concerns of chest discomfort concerning for angina pectoris and abnormal troponin I levels concerning for a non-ST segment elevation SD. The patient states she had been doing well until yesterday. Yesterday she had nonexertional chest pressure. She states she used her nitroglycerin sublingual x2 with partial but not complete relief. She elected to present to the emergency department for further evaluation. She was evaluated by the emergency department staff and internal medicine. She was recommended for further in- house evaluation and care. She states she believes, after use of her nitroglycerin, and placement of a nitroglycerin patch, that her symptoms gradually abated. She does not recall having any acute shortness of breath/dyspnea, nausea, emesis, or diaphoresis. She was evaluated with an initial negative troponin I level. However her troponin I level has changed/increased. Her ECG demonstrated sinus rhythm with a left axis deviation with voltage criteria for LVH and a T wave potentially compatible with LVH repolarization versus myocardial ischemia-lateral. Her cardiac rhythm has remained sinus rhythm. At the moment she states she is feeling better overall. She does state that the symptoms are the same symptoms she had prior to her most recent acute coronary syndrome events leading to PCI procedures in January 2019. [] Past Medical History Allergies/Adverse Reactions: Allergies lisinopril Allergy (Verified 04/14/19 12:25) Unknown ranitidine HCl [From Zantac] Allergy (Verified 04/14/19 12:25) Hives azithromycin Adverse Reaction (Verified 04/14/19 12:25) Nausea/Vom/Diarrhea Home Medications: Ambulatory Orders Medication Instructions Recorded Famotidine [Pepcid] 40 mg PO BID 06/07/17 Gabapentin [Neurontin] 300 mg PO QHS 06/07/17 Pyridoxine HCl (Vitamin B6) [B-6] 100 mg PO DAILY 06/07/17 Sennosides [Senna] 8.6 mg PO QHS PRN 06/07/17 ergocalciferol (vitamin D2) 1,250 50,000 unit PO QMONTH cap 08/01/17 mcg (50,000 unit) capsule Citalopram Hydrobromide 20 mg PO DAILY 11/15/18 [Citalopram HBr] Folic Acid/Vitamin B Comp W-C 1 cap PO DAILY 11/15/18 [Nephrocaps, Renaphro] Timolol 0.5% [Timoptic] 1 drp RIGHT EYE BID 11/15/18 Insulin Glargine,Hum.rec.anlog 20 unit SQ DAILY #0 11/19/18 [Jamal Estevez] aspirin 81 mg chewable tablet 81 mg PO DAILY@0800 #90 tab 03/06/19 albuterol sulfate 90 mcg/actuation 1 puff INHALATION Q6H PRN PRN #1 04/14/19 aerosol inhaler inhaler Amoxicillin [Amoxil] 500 mg PO Q8H 05/24/19 Atorvastatin Calcium 80 mg PO QHS 05/24/19 Carvedilol 12.5 mg PO BID 05/24/19 Clopidogrel Bisulfate [Clopidogrel] 75 mg PO DAILY 05/24/19 Isosorbide Mononitrate [Isosorbide 60 mg PO BID 05/24/19 Mononitrate ER] Calcium Acetate 2 cap PO TIDCM 05/25/19 Past Medical History (Chronic Problems): Chronic Problems (Last Updated 05/25/19 @ 01:54 by Juan Najera DO) CAD in [place] artery (Chronic) Glaucoma (Chronic) GERD (gastroesophageal reflux disease) (Chronic) Diabetic retinopathy (Chronic) DDD (degenerative disc disease) (Chronic) Anemia in chronic renal disease (Chronic) Chronic kidney disease with end stage renal failure on dialysis (Chronic) History of non-ST elevation myocardial infarction (NSTEMI) (Chronic) Nonrheumatic mitral (valve) insufficiency (Chronic) Secondary pulmonary arterial hypertension (Chronic) Chronic diastolic (congestive) heart failure (Chronic) 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) CABG x3- KINCAID-LAD, SVG-CX, SVG-RCA 06/25/14 @ [facility] AV fistula (Chronic) Morbid obesity (Chronic) Diabetes mellitus type 2 in obese (Chronic) End-stage renal disease on hemodialysis (Chronic) Hypertension (Chronic) HLD (hyperlipidemia) (Chronic) COPD (chronic obstructive pulmonary disease) (Chronic) CLAUDIO (obstructive sleep apnea) (Chronic) 17/11 cmH2O Hypokalemia (Chronic) Secondary hyperparathyroidism of renal origin (Chronic) Surgical History: angioplasty, cataract, coronary bypass surgery - CABG x 3., hysterectomy, - - AVF placement, back surgery. Psychiatric History: Anxiety, Depression [place] History: No pertinent [place] history - *Family History Paternal Family History: Family History (Last Reviewed 04/14/19 @ 12:39 by MAU Haas) Father Heart disease Hypertension Prostate cancer Mother Hypertension History Items: Cancer - prostate, Heart Disease, Hypertension Sibling Family History: Family History (Last Reviewed 04/14/19 @ 12:39 by MAU Haas) Father Heart disease Hypertension Prostate cancer Mother Hypertension History Items: Diabetes Maternal Family History: Family History (Last Reviewed 04/14/19 @ 12:39 by MAU Haas) Father Heart disease Hypertension Prostate cancer Mother Hypertension History Items: Hypertension Lives: Alone Smoking Status: Former smoker Tobacco Use: Non-smoker Alcohol: None Drugs: None Review of Systems - Review of Systems General: Denies: Fever, Night Sweats, Fatigue Cardiovascular: Reports: Chest Discomfort, Chest Discomfort at Rest. Denies: Shortness of Breath, Orthopnea, PND, Peripheral Edema, Palpitations, Lightheadedness, Dizziness, Near Syncope, Syncope Respiratory: Denies: Cough, Sputum Production, Hemoptysis Gastrointestinal: Denies: Hematemesis, Hematochezia, Melena Genitourinary: Denies: Dysuria, Hematuria Skin: Denies: Rash Subjectve: This is a 58-year-old female who presents for concerns of chest discomfort who appears to be resting comfortably at the moment in no acute distress. Objective: Vital Signs Temp Pulse Resp BP Pulse Ox 97.6 F L 61 16 112/52 L 95 05/25/19 09:16 05/25/19 11:00 05/25/19 09:16 05/25/19 09:16 05/25/19 09:16 Oxygen Flow Rate (L/min) 2 Oxygen Delivery Method Room Air Weight: 196 lb 10.437 oz Body Mass Index (BMI) 38.4 Finger Stick Blood Glucose 275 Intake and Output for Last 24 Hours 05/23/19 05/24/19 05/25/19 23:59 23:59 23:59 Intake Total 240 / 240 490 / 490 Output Total 0 / 0 Balance 240 / 240 490 / 490 General: Awake, Alert, Oriented x 3, Cooperative, No Acute Distress HEENT: Atraumatic, Normocephalic, PERRL, EOMI, Sclera Non Icteric Oral: Moist Mucosa Neck: Supple, Good ROM, No JVD Lungs: Clear to auscultation Cardiovascular: Regular Rhythm, Normal S1, Normal S2 Abdomen: Bowel Sounds Present, Soft, Non Tender Extremities: No edema Psych/Mental Status: Appropriate 05/24/19 20:55: WBC 4.7, RBC 4.26, Hgb 12.3, Hct 39.8, MCV 93.4, MCH 28.9, MCHC 30.9 L, Plt Count 260, MPV 10.2, Immature Gran % (Auto) 0.200, Neut % (Auto) 49.8, Lymph % (Auto) 33.7, Borden % (Auto) 11.9 H, Eos % (Auto) 3.6, Baso % (Auto) 0.8, Absolute Neuts (auto) 2.4, Nucleated RBC % 0 05/24/19 20:55: PT Cancelled, INR Cancelled 05/24/19 20:55: Sodium 138, Potassium 4.5, Chloride 100, Carbon Dioxide 33.0 H, Anion Gap 5, BUN 38 H, Creatinine 3.46 H, Est GFR (MDRD) Af Amer 17 L, Est GFR (MDRD) Non-Af 14 L, BUN/Creatinine Ratio 11.0, Glucose 237 H, Calcium 9.7, Troponin I < 0.015 05/24/19 21:35: PT 14.1, INR 1.1 05/25/19 00:08: Troponin I 0.067 H 05/25/19 02:34: Troponin I 0.336 H Rhythm: Sinus rhythm EKG: Sinus rhythm; left axis deviation; LVH; T wave abnormality potentially compatible with LVH versus myocardial ischemia-lateral ECHO: 02-18-19 Interpretation Summary Mildly dilated left ventricle. The estimated ejection fraction is 45 %. Stage 2 diastolic dysfunction. Posterior-Basal: Mildly hypokinetic Infero-Basal: Mildly hypokinetic Bubble contrast study negative for right to left interatrial shunt. Mild (1+) posteriorly directed mitral valve insufficiency. Mild (1+) tricuspid valve insufficiency. Right ventricular systolic pressure estimated to be 38 mmHg. Mild pulmonary hypertension. Compared to echo report dated 10/10/2017, LV function has remained the same, and RVSP has improved from 56 to 38 mm HG. Stress Test: DATE OF SERVICE: 01/29/2016 REASON FOR EVALUATION: Chest pain in a 55-year-old lady with a history of previous bypass surgery. Resting EKG demonstrates sinus bradycardia with a rate of 54 beats per minute. Normal intervals are noted. Resting blood pressure was 138/61. 0.4 mg of regadenoson was infused per usual protocol followed by rapid intravenous saline flush injection. Continuous EKG monitoring was performed. The maximum heart rate attained was 57 beats per minute, which was 34% of maximum predicted heart rate. The maximum workload attained was 1 MET. At rest, there were no ST or T-wave changes noted to suggest abnormal flow reserve. At peak infusion, no ST or T-wave changes were noted to suggest abnormal flow reserve. No clinical angina was noted. The resting blood pressure was 134/61 with a final blood pressure 105/54. MYOCARDIAL PERFUSION PROTOCOL: 14.9 mCi of sestamibi was injected at rest. 0.4 mg of regadenoson was infused per usual protocol. At peak infusion, 44.6 mCi of sestamibi was injected. Stress images were obtained. Stress and rest images were reconstructed and compared in the short axis, vertical long and horizontal long axes. Gated images were also obtained. PERFUSION SPECT ANALYSIS: Review of the images demonstrated normal uptake of tracer noted in all areas of the myocardium on the stress and resting images to a similar extent. No previous areas of infarct. No areas of reversibility are noted to suggest ischemia. GATED SPECT ANALYSIS: The gated ejection fraction is noted to be 69%. CONCLUSION: 1. Normal pharmacologic myocardial perfusion stress test. 2. Preserved ejection fraction. Cardiac Cath: 02-20-19 CONCLUSIONS Triple vessel CAD of the LM, LCX LAD and distal RCA. Widely patent recently placed proximal and distal RCA stents. No stent thrombosis. Widely patent KINCAID to LAD. Widely patent SVG to OM#1. Probably signficant distal RCA stenosis not treated on recent PCI due to small vessel caliber and NITIN III flow. Global LV systolic dysfunction- Moderate LVEF: by LV gram 40 % Depressed Left Ventricular systolic function - Moderate Elevated Left Ventricular End Diastolic Pressure Successful PTCA/MIGUEL distal RCA with a 2.25 x 16 Promus Synergy stent at 8ATM, then inflated to 12 [place] in proximal stent to insure proper appoistion with previously placed distal RCA stent. Successful PCI with PTCA to the proximal/ostial RCA to insure that no recently placed stent struts were crimped during this procedure. Not a true STEMI; Pt had ACS with recent stenting 2 days ago with dynamic ECG c hanges without overt ST Elevation. CORONARY ANGIOGRAPHY DOMINANCE: Right Dominant LEFT HEART ASSESSMENT Left Ventricular Ejection Fraction: by LV Gram 35-40 % Depressed Left Ventricular systolic function LVEDP: 35 mmHg Elevated Left Ventricular End Diastolic Pressure Global Hypokinesis - Moderate LEFT MAIN: 85 % Stenosis, Moderate calcification LEFT ANTERIOR DESCENDING ARTERY: MID LAD: 85 % Stenosis CIRCUMFLEX ARTERY: 99 % Stenosis RIGHT CORONARY ARTERY: PROX RCA: Previously placed stent is patent DISTAL RCA: Previously placed stent is patent, 75 % Stenosis GRAFTS: KINCAID graft to the LAD is patent. Saphenous Vein graft to the 1st OM is patent CXR: IMPRESSION: Right lower lobe infiltrate. Moderate cardiomegaly. Status post sternotomy. Calcified plaques of the aortic arch. Status post posterior fusion with rods and interpeduncular screws of the visualized lower cervical spine. Assessment/Plan 1. Non-ST segment elevation SD The patient presents back with recurrent symptoms, which she states is similar to what she had prior to her recent acute coronary syndrome events in January 2019 leading to her PCI's, which after nitroglycerin therapy did improve, and is now found to have increasing troponin I levels. At the present time the patient will continue to be monitored. She will continue medical therapy/adjustment as deemed appropriate. However, based upon her recurrent symptoms, her abnormal troponin I levels, superimposed on her known cardiovascular history, it would not be unreasonable to consider her for a repeat diagnostic cardiac catheterization and if need be repeat PCI. 2. CAD status post PCI status post CABG She does have an extensive underlying CAD history requiring revascularization wi th PCI and CABG. Her most recent invasive study is as noted. Again based upon her recurrent symptoms, her cardiac enzyme change, it would be reasonable to consider reevaluation in the cardiac catheterization laboratory. In the meantime she will continue medical management and follow-up. 3. CHF She has a history of CHF. There is been comments in the past that it may be diastolic mediated. However based upon her previous studies there is been comments about diminished LV systolic function/LVEF. Thus she may have combined systolic/diastolic mediated CHF. She will continue medical management as best as possible. Her volume status is assisted with chronic hemodialysis. 4. Hyperlipidemia She will continue medical therapy and follow-up. 5. Hypertension Her blood pressure can be monitored and her medications adjusted taking into consideration her renal insufficiency. 6. Diabetes mellitus She will continue under evaluation care by internal medicine. 7. Chronic renal insufficiency She will continue to be followed by nephrology. She continues dialysis on a Sunday, , and Sunday basis. 8. COPD Again she will continue evaluation care by her other physicians. 9. Obstructive sleep apnea She should continue therapy for her obstructive sleep apnea as this may benefit her cardiovascular status. Comment: The patient's case has been discussed and reviewed with the patient and with Dr. Najera. This note was generated using a voice recognition system and there may be incorrect words, spelling or punctuation that were not noted when reviewing the office note prior to saving.
[2019-05-25] MEDS: Calcium Acetate 667 MG Capsule 1334 MG PO ×2 (14:46→21:01)
[2019-05-25 14:56] LABS: Bedside Glucose 152 mg/dL (70-110)
[2019-05-25 17:06] LABS: Bedside Glucose 181 mg/dL (70-110)
[2019-05-25] MEDS: Nitroglycerin (INPATIENT USE) 0.4 MG TAB.SUBL SUBLINGUAL (20:47)
--- NOTE | 2019-05-25 20:48 | EKG12_ITS ---
Test Reason : CP Blood Pressure : / mmHG Vent. Rate : 083 BPM Atrial Rate : 083 BPM P-R Int : 192 ms QRS Dur : 086 ms QT Int : 408 ms P-R-T Axes : 060 -57 135 degrees QTc Int : 479 ms Normal sinus rhythm Possible Left atrial enlargement Left axis deviation Left ventricular hypertrophy ST & T wave abnormality, consider lateral ischemia Prolonged QT Abnormal ECG Confirmed by SAMUEL ZARAGOZA, DESTINEE ([id number]), editor continuity and script MYRIAM PEREZ ([id number]) on 05/27/2019 8:36:31 AM Referred By: JAYME Confirmed By:DESTINEE BAKER MD
--- NOTE | 2019-05-25 20:53 | EKG12_ITS ---
Test Reason : CP ADMISSION Blood Pressure : / mmHG Vent. Rate : 063 BPM Atrial Rate : 063 BPM P-R Int : 166 ms QRS Dur : 084 ms QT Int : 474 ms P-R-T Axes : 047 -47 113 degrees QTc Int : 485 ms Normal sinus rhythm Left axis deviation Left ventricular hypertrophy T wave abnormality, consider lateral ischemia Abnormal ECG When compared with ECG of 24-MAY-2019 21:08, MANUAL COMPARISON REQUIRED, DATA IS UNCONFIRMED Confirmed by SAMUEL ZARAGOZA, DESTINEE ([id number]), editor map MADDY STERLING ([id number]) on 05/27/2019 11:01:01 AM Referred By: JERO Confirmed By:DESTINEE BAKER MD
[2019-05-25 21:21] LABS: Bedside Glucose 172 mg/dL (70-110)
[2019-05-26] VITALS (16 sets, daily range): BP systolic 95–125; BP diastolic 51–82; PULSE 57–70; RESP 12–16; TEMP 36.7–36.8; O2SAT 95–100
[2019-05-26] MEDS: Morphine 2 MG/ML Syringe IV ×2 (03:28→13:08)
[2019-05-26 05:50] LABS: Anion Gap 8 (5-15); BUN 75 mg/dL (7-18); BUN/Creat Ratio 13.9 RATIO (10-20); Calcium,Total 8.9 mg/dL (8.5-10.1); Chloride 100 mmol/L (98-107); Cholesterol 137 mg/dL (200); Creatinine, Serum 5.38 mg/dL (0.55-1.02); EST Glomerular Filtration Rate 9 mL/min (>60); Est Glom Filt Rate - Afr Amer 10 mL/min (>60); Estimated Creatinine Clearance 8.09 ml/min; Glucose 153 mg/dL (74-106); High Density Lipoprotein 57 mg/dL; Potassium 5.3 mmol/L (3.5-5.1); Sodium Level 137 mmol/L (136-145); Triglycerides 109 mg/dL; Very Low Density Lipoprotein 22 mg/dL (5-40)
[2019-05-26] MEDS: Aspirin 81 MG TAB.CHEW PO (06:37)
[2019-05-26] MEDS: Carvedilol 12.5 MG Tablet PO (06:37)
[2019-05-26] MEDS: Clopidogrel Bisulfate 75 MG Tablet PO (06:37)
[2019-05-26] MEDS: Isosorbide Mononitrate 60 MG Tablet PO (06:44)
[2019-05-26 06:46] LABS: Bedside Glucose 131 mg/dL (70-110)
[2019-05-26] MEDS: Nitroglycerin (INPATIENT USE) 0.4 MG TAB.SUBL SUBLINGUAL (07:09)
--- NOTE | 2019-05-26 08:22 | ECHOD_ITS ---
Reason For Study: CP Procedure This was a 2D Doppler, Color Flow transthoracic echocardiogram. Echo done post cath on 05/26/2019. Patient scanned supine due to bedrest. Exam performed portable in patient room. Left Ventricle Mildly dilated left ventricle. The estimated ejection fraction is 25-30 %. Stage 2 diastolic dysfunction. There is moderate to severe global hypokinesis of the left ventricle. Right Ventricle Normal size and thickness. Normal systolic function. Atria Normal left atrium. Normal right atrium. Normal atrial septum. Mitral Valve The mitral valve is structurally normal. No prolapse or stenosis seen. Mild (1+) mitral valve insufficiency. Tricuspid Valve Normal tricuspid valve. Trivial tricuspid valve insufficiency. Unable to estimate RV systolic pressure due to insufficient tricuspid regurgitant envelope. Aortic Valve Trisinus/trileaflet aortic valve. Aortic sclerosis, no stenosis. Pulmonic Valve Normal pulmonic valve. Trivial pulmonic valve insufficiency. Great Vessels Normal aortic root. Normal arch. Normal inferior vena cava. Inferior vena cava collapse with sniff. Pericardium/Pleural No pericardial effusion. MMode/2D Measurements & Calculations LVIDd: 4.9 cm IVSd: 1.3 cm Ao root diam: 2.8 cm LVIDs: 3.6 cm LVPWd: 1.5 cm LA dimension: 3.4 cm RVDd: 3.6 cm FS: 26.9 % LAV(MOD-sp4): 58.6 ml LA A4 area: 20.1 cm2 RA A4 area: 13.1 cm2 Time Measurements MV dec time: 0.21 sec Doppler Measurements & Calculations MV E max [place]: 110.1 cm/sec Lat Peak E' [place]: 4.6 cm/sec Med Peak E' [place]: 5.9 cm/sec MV A max [place]: 77.6 cm/sec E/E' lat: 23.7 E/E' med: 18.7 MV E/A: 1.4 MV V2 max: 143.4 cm/sec MV P1/2t max [place]: 144.2 cm/sec Ao V2 max: 140.2 cm/sec MV max P.2 mmHg MV P1/2t: 78.1 msec Ao max P.9 mmHg MV V2 mean: 70.4 cm/sec MV dec slope: 540.7 cm/sec2 Ao V2 mean: 99.9 cm/sec MV mean P.5 mmHg MVA(P1/2t): 2.8 cm2 Ao mean P.3 mmHg MV V2 VTI: 36.4 cm Ao V2 VTI: 32.6 cm LV V1 max: 117.3 cm/sec MR max [place]: 429.1 cm/sec PA V2 max: 79.0 cm/sec LV V1 max P.5 mmHg MR max P.7 mmHg LV V1 mean P.0 mmHg MR mean frans[place]: 354.9 cm/sec LV V1 mean: 80.8 cm/sec MR mean P.7 mmHg LV V1 VTI: 29.2 cm MR VTI: 156.6 cm Interpretation Summary Mildly dilated left ventricle. The estimated ejection fraction is 25-30 %. Stage 2 diastolic dysfunction. There is moderate to severe global hypokinesis of the left ventricle. Mild (1+) mitral valve insufficiency. Trivial tricuspid valve insufficiency. Unable to estimate RV systolic pressure due to insufficient tricuspid regurgitant envelope. Compared to echo report dated 02/19/2019, LV function is reduced from 45% to around 25 to 30%, and unable to quantitate RVSP on this exam. Ordering Physician: Freddie Huang Referring Physician: Brayden King Chi Performed By: Stephan Tafoya RCS
--- NOTE | 2019-05-26 08:38 | CL.D_ITS ---
Patient Name: ADEN COOK Study Date: 05/26/2019 Performing: Freddie Huang MD Ht: 59.84 inches 152 cm : 1960 Wt: 196.21 lbs 89 kg Age: 58 Gender: female BSA: 1.85 PROCEDURE(S) PERFORMED IU35-GSS/COR/LV/CABG CLINICAL PROFILE AND INDICATIONS Indications: ACS > 24 hrs, Stable Known CAD, LV Dysfunction Heart Failure: NYHA Class: 1, Newly Diagnosed: No, Heart Failure Type: Systolic Stress/Imaging Stress/Image Study Performed: No Angina Classification Anginal Classification w/in 2 Weeks: CCS IV CAD Presentations: Symptom unlikely to be ischemic. Comorbidities/Risk Factors: Current/Recent Smoker (< 1year) Hypertension Dyslipidemia Prior CHF Prior PCI Prior CABG Diabetes Mellitus: Diabetes Therapy: Insulin CONCLUSIONS Triple vessel CAD of the LM, LAD and LCX Widely patent stents in RCA/PDA. Widely patent SVG to OM Widely patent KINCAID to LAD with 40% distal [place] LAD disease, not appreciably changed from cath in 2018. Global LV systolic dysfunction- Severe LVEF: by LV gram 20-25 % Depressed Left Ventricular systolic function - Severe Elevated Left Ventricular End Diastolic Pressure RECOMMENDATIONS Management as per referring Fish Roe Technician Start hydralazine 10mg TID and titrate up for severe LV dysfunction and elevated LVEDP. Manual sheath removal. Tobacco cessation. Obtain hsCRP and repeat echo to document newly advanced LV dysfunction. If no improvement in LV func tion in 3 months, pt will need AICD. DESCRIPTION OF PROCEDURE The patient arrived to the procedure lab. The risks and benefits of the procedure as well as a full d escription of our services here and current unavailability of surgical backup were fully explained to the patient and/or their significant other prior to the catheterization. The Timeout was completed, verifying the correct patient and procedure. The patient's procedural site was prepped and draped in the usual fashion. Local anesthetic was given subcutaneously to right groin region with Lidocaine 2%. Using a modified Seldinger technique, arterial access was obtained via the right femoral artery, a 4 Fr sheath was inserted Left Coronary Artery selective angiography was performed in multiple views us ing a 4 Fr. JL5 catheter. Left Coronary Artery selective angiography was performed in multiple views using a 4 Fr. JL4 catheter. Right Coronary Artery selective angiography was then performed in multipl e views using a 4 Fr. 3DRC catheter. Saphenous Vein graft to the OM 1 selective angiography was performed in multiple views using a 4 Fr. 3DRC catheter. Left internal mammary artery graft to the LAD selective angiography was performed in multiple views using a 4 Fr. 3DRC catheter. Left Ventriculography was performed in KHOURY projection using a 4 Fr. Pigtail catheter. LV to AO pullba ck pressures were then recorded.The arterial sheath was pulled and manual compression applied until h emostasis is achieved. CORONARY ANGIOGRAPHY DOMINANCE: Right Dominant LEFT HEART ASSESSMENT Left Ventricular Ejection Fraction: by LV Gram 20-25 % Global Hypokinesis - Severe Depressed Left Ventricular systolic function LVEDP: 30 mmHg Elevated Left Ventricular End Diastolic Pressure LEFT MAIN: 85 % Stenosis LEFT ANTERIOR DESCENDING ARTERY: PROX LAD: Moderate luminal irregularities up to 50% DIAGONAL 1: Proximal - Mild luminal irregularities less than 30% CIRCUMFLEX ARTERY: is occluded RIGHT CORONARY ARTERY: OSTIAL RCA: Previously placed stent is patent DISTAL RCA: Previously placed stent is patent GRAFTS: KINCAID graft to the LAD is patent Saphenous Vein graft to the 1st OM is patent COMPLICATIONS No Complications PROCEDURE MEDICATIONS Oxygen: 2 L/min via nasal cannula SUMMARY OF HEMODYNAMIC DATA Time AIR REST ECG 07:37:03 AO 136/59 (86) SA 08:02:41 LV 108/4, 30 08:18:12 LV 108/6, 31 08:18:18 LVp 113/7, 26 08:18:35 AOp 113/48 (73) 08:18:41 Signed By Freddie Huang MD On 05/26/2019 08:37:16 Freddie Huang MD
[2019-05-26 08:53] LABS: CRP, High Sensitivity Cardiac 1.41 mg/L
--- NOTE | 2019-05-26 09:29 | PCM.DC ---
- Discharge Diagnoses Current Active Problems: Current Active and Chronic Problems (Last Updated 05/26/19 @ 09:05 by Ariela Nava MD) NSTEMI (non-ST elevated myocardial infarction) (Acute) CAD in [place] artery (Chronic) Chronic kidney disease on chronic dialysis (Chronic) You will use the following diet at home:: Calorie/Carbohydrate Controlled (specify 1200, 1400, etc) - 1800 edna., Cardiac, Renal (restricted protein/sodium) Your food should be the consistency of: Regular Discharge Activity: Return to Normal Activity Weight Bearing Status: Weight bearing as tolerated Call your doctor if you observe: Fever of 101 or Higher, Shortness of breath, Dizziness, Fainting spells, Chest pain, Increased palpitations (irregular heartbeat), Uncontrolled pain Allergies/Adverse Reactions: Allergies lisinopril Allergy (Verified 04/14/19 12:25) Unknown ranitidine HCl [From Zantac] Allergy (Verified 04/14/19 12:25) Hives azithromycin Adverse Reaction (Verified 04/14/19 12:25) Nausea/Vom/Diarrhea Medications to take at Discharge Famotidine [Pepcid] 40 mg PO BID 06/07/17 Gabapentin [Neurontin] 300 mg PO QHS 06/07/17 Pyridoxine HCl (Vitamin B6) [B-6] 100 mg PO DAILY 06/07/17 Sennosides [Senna] 8.6 mg PO QHS PRN 06/07/17 ergocalciferol (vitamin D2) 1,250 mcg (50,000 unit) capsule 50,000 unit PO QMONTH cap 08/01/17 Citalopram Hydrobromide [Citalopram HBr] 20 mg PO DAILY 11/15/18 Folic Acid/Vitamin B Comp W-C [Nephrocaps, Renaphro] 1 cap PO DAILY 11/15/18 Timolol 0.5% [Timoptic] 1 drp RIGHT EYE BID 11/15/18 Insulin Glargine,Hum.rec.anlog [Toujohn Solostar] 20 unit SQ DAILY #0 11/19/18 aspirin 81 mg chewable tablet 81 mg PO DAILY@0800 #90 tab 03/06/19 albuterol sulfate 90 mcg/actuation aerosol inhaler 1 puff INHALATION Q6H PRN PRN #1 inhaler 04/14/19 Atorvastatin Calcium 80 mg PO QHS 05/24/19 Carvedilol 12.5 mg PO BID 05/24/19 Clopidogrel Bisulfate [Clopidogrel] 75 mg PO DAILY 05/24/19 Isosorbide Mononitrate [Isosorbide Mononitrate ER] 60 mg PO BID 05/24/19 Calcium Acetate 2 cap PO TIDCM 05/25/19 hydrALAZINE [Apresoline] 10 mg PO TID #90 tab 05/26/19 The following prescriptions were given: hydrALAZINE [Apresoline] 10 mg PO TID #90 tab Transmission Status: Pending to [facility] Primary Care Physician: Brayden King Chi, MD [Primary Care Provider] - Please follow up with your Primary Care Physician in: 1-2 weeks. Test Results: Test results from this visit will be discussed in further detail at your follow-up appointment, if applicable. Please Follow Up With: Freddie Huang MD When: 2-4 weeks.
[2019-05-26] MEDS: Timolol 0.5% 5ML OPTH.BTL 1 DRP RIGHT EYE (10:02)
[2019-05-26] MEDS: Famotidine 20 MG Tablet 40 MG PO (10:05)
[2019-05-26] MEDS: Citalopram 20 MG Tablet PO (10:05)
[2019-05-26] MEDS: Folic Acid/Vitamin B Comp W-C 1 Capsule 1 CAP PO (10:05)
[2019-05-26] MEDS: Pyridoxine HCl 100 MG Tablet PO (10:05)
[2019-05-26] MEDS: Calcium Acetate 667 MG Capsule 1334 MG PO ×2 (10:05→13:08)
--- NOTE | 2019-05-26 10:20 | CASEMGMT ---
ABDIAS PAZ assessment: Face to Face with patient for initial transition planning/care coordination assessment. ABDIAS PAZ introduced self and role at [facility], pt voices understanding and consents to assessment at this time. Pt is sitting up in bed in no distress at this time. Pt is A/Ox4 at this time and answers all questions appropriately at this time. Pt's brother and mother at bedside during assessment. Care providers, pharmacy, and demographics verified/updated at this time. Presentation: c/o sternal CP x 20min Admitting dx: Unstable angina PCP: Fernando Specialists: Sal, cardio; Ayo, nephro; Carlitos, pulm; Antonette, eye center Preferred [email or web address] Prescription Benefit: [employer] Living Will/HPOA: Pt has LW/HPOA and they are currently on file at [facility] at this time. Pt's mother, Carolina Casanova, is HPOA. LNOK: Carolina Casanova, mother/HPOA; Blake Casanova, brother; Randa Yost, son Living Arrangements: Pt lives with adult son, Randa Yost, and her younger daughter in 2 story home and pt states no concerns at home at this time. Pt states has been independent with ADL's but family assists, if needed. Transportation: Pt states family does all driving and states no transportation concerns at this time. DME/HHC: Pt states has the following DME: cane, walker, medical alert, glucometer, grab bars, shower chair, hand held shower, nebulizer, and bipap(pt states is in the process of switching to [employer]). Pt was current with waiver program and has aides through [employer] 3days/week for 2-3hrs/day for cooking/cleaning. Pt states her insurance just switched to [employer] and her care will now be managed thru them but she is not sure how that will work. Pt states also gets meals thru [facility]. Pt states has been to [facility] twice in the past and has had [facility] in the recent past. Pt has dialysis at [facility] at 0530 with [place] set up for transportation. Pt states no concerns with going home at time of discharge. Pt is disabled. Pt states does not smoke or drink ETOH. Pt states no further concerns/needs at this time. CM to follow for any further discharge planning/needs. Advised pt to ask for CM if any further questions/concerns/needs arise, voices understanding. Pt Goal: Home Plan: Home w/ resumption of aides. Mirian CALERO CM
--- NOTE | 2019-05-26 10:29 | PHA.DC.MC ---
Pharmacy Service has performed discharge medication reconciliation and counseling for this patient. 1. HYDRALAZINE 10MG PO TID The patient's discharge medication list was reviewed for discrepancies and discrepancies were resolved. Home Medications Famotidine [Pepcid] 40 mg PO BID 06/07/17 Gabapentin [Neurontin] 300 mg PO QHS 06/07/17 Pyridoxine HCl (Vitamin B6) [B-6] 100 mg PO DAILY 06/07/17 Sennosides [Senna] 8.6 mg PO QHS PRN 06/07/17 ergocalciferol (vitamin D2) 1,250 mcg (50,000 unit) capsule 50,000 unit PO QMONTH cap 08/01/17 Citalopram Hydrobromide [Citalopram HBr] 20 mg PO DAILY 11/15/18 Folic Acid/Vitamin B Comp W-C [Nephrocaps, Renaphro] 1 cap PO DAILY 11/15/18 Timolol 0.5% [Timoptic] 1 drp RIGHT EYE BID 11/15/18 Insulin Glargine,Hum.rec.anlog [Toujeo Solostar] 20 unit SQ DAILY #0 11/19/18 aspirin 81 mg chewable tablet 81 mg PO DAILY@0800 #90 tab 03/06/19 albuterol sulfate 90 mcg/actuation aerosol inhaler 1 puff INHALATION Q6H PRN PRN #1 inhaler 04/14/19 Atorvastatin Calcium 80 mg PO QHS 05/24/19 Carvedilol 12.5 mg PO BID 05/24/19 Clopidogrel Bisulfate [Clopidogrel] 75 mg PO DAILY 05/24/19 Isosorbide Mononitrate [Isosorbide Mononitrate ER] 60 mg PO BID 05/24/19 Calcium Acetate 2 cap PO TIDCM 05/25/19 hydrALAZINE [Apresoline] 10 mg PO TID #90 tab 05/26/19 The patient was counseled on the following discharge medications and changes in medications for homegoing were reviewed. The Reason for Use, instructions for use, and potential side effects were reviewed for all new medications. The patient's questions regarding all of their medications were answered. The patient was able to verbally demonstrate an understanding of their discharge medications.
--- NOTE | 2019-05-26 11:03 | CASEMGMT ---
Per RN CM patient has waiver. SW called [facility] and they do not manage patient's who have [facility] that are under 60. [facility] assigns one of their patient case coordinator. Ely GALDAMEZ
--- NOTE | 2019-05-26 12:08 | PCM.CONS.R ---
Consultation - Renal 05/26/19 PCP/ Referring MD: Requesting physician: [] Primary care physician: Brayden King MD Reason for Consultation:: ESRD HD TT - History of Present Illness History of Present Illness: The patient is a 58 year old F with ESRD due to diabetes on HD TTS at [place] unit admitted for chest pain Sunday evening. Her last dialysis was Sat on 05/24/19. She underwent heart cath this morning. Chest pain persistents intermittently. She has sig CAD history s/p CABG. - Allergies Allergies: Allergies lisinopril Allergy (Verified 04/14/19 12:25) Unknown ranitidine HCl [From Zantac] Allergy (Verified 04/14/19 12:25) Hives azithromycin Adverse Reaction (Verified 04/14/19 12:25) Nausea/Vom/Diarrhea - Current Medications Current Medications: Current Medications Aspirin (Aspirin, Baby) 81 mg PO DAILY@0800 [facility] Last Admin: 05/26/19 06:37 Dose: 81 mg Documented by: Atorvastatin Calcium (Lipitor) 80 mg PO QHS [facility] Last Admin: 05/25/19 21:10 Dose: 80 mg Documented by: Calcium Acetate (Phoslo Gel Cap) 1,334 mg PO TIDCM [facility] Last Admin: 05/26/19 10:05 Dose: 1,334 mg Documented by: Carvedilol (Coreg) 12.5 mg PO BID [facility] Last Admin: 05/26/19 06:37 Dose: 12.5 mg Documented by: Citalopram Hydrobromide (Celexa) 20 mg PO DAILY [facility] Last Admin: 05/26/19 10:05 Dose: 20 mg Documented by: Clopidogrel Bisulfate (Plavix) 75 mg PO DAILY [facility] Last Admin: 05/26/19 06:37 Dose: 75 mg Documented by: Famotidine (Pepcid) 40 mg PO BID [facility] Last Admin: 05/26/19 10:05 Dose: 40 mg Documented by: Gabapentin (Neurontin) 300 mg PO QHS [facility] Last Admin: 05/25/19 21:10 Dose: 300 mg Documented by: Glucagon () 1 mg IM .X1 PRN PRN Reason: Hypoglycemia Heparin Sodium (Beef Lung) (Heparin 500 Unit/5 Ml (100/Ml)) 500 unit IV UD PRN PRN Reason: HEPARIN FLUSH Heparin Sodium (Porcine) (Heparin Na) 5,000 unit SC Q12 [facility] Last Admin: 05/26/19 10:06 Dose: Not Given Documented by: Hydralazine HCl (Apresoline) 10 mg PO TID [facility] Sodium Chloride () 250 mls @ 15 mls/hr IV .[id number] PRN PRN Reason: Saline Flush Sodium Chloride () 250 mls @ 15 mls/hr IV .[id number] PRN PRN Reason: Additional IVPB Infusion Dextrose (Dextrose 10%-Water) 250 mls @ 999 mls/hr IV .Q16M PRN; Protocol PRN Reason: HYPOGLYCEMIA Sodium Chloride () 1,000 mls @ 0 mls/hr IV .Q0M [facility] Insulin Glargine (Lantus ([facility])) 20 units SC DAILY [facility] Last Admin: 05/26/19 10:03 Dose: 20 units Documented by: Insulin Human Lispro (Humalog Kwikpen ([facility])) 0 unit SC ACHS [facility]; Protocol Last Admin: 05/26/19 06:40 Dose: Not Given Documented by: Isosorbide Mononitrate (Imdur) 60 mg PO BID [facility] Last Admin: 05/26/19 06:44 Dose: 60 mg Documented by: Labetalol HCl (Trandate) 5 mg IV X1 PRN PRN Reason: SBP > 160 prior to sheath pull Morphine Sulfate () 2 mg IV Q3H PRN PRN PRN Reason: Pain Score 6-10/10 Last Admin: 05/26/19 03:28 Dose: 2 mg Documented by: Multivit/Ca Carb/B Cmplx/FA/Prenat (Nephrocaps, Renaphro) 1 capsule PO DAILY [facility] Last Admin: 05/26/19 10:05 Dose: 1 capsule Documented by: Nitroglycerin (Nitrostat) 0.4 mg SUBLINGUAL Q5M PRN PRN Reason: CARDIAC/CHEST PAIN Last Admin: 05/26/19 07:09 Dose: 1 tab Documented by: Ondansetron HCl (Zofran) 4 mg IV Q8H PRN PRN PRN Reason: NAUSEA/VOMITING Last Admin: 05/25/19 11:39 Dose: 4 mg Documented by: Pyridoxine HCl (Vitamin B-6) 100 mg PO DAILY [facility] Last Admin: 05/26/19 10:05 Dose: 100 mg Documented by: Senna (Senokot) 1 tablet PO QHS PRN PRN PRN Reason: Constipation Sodium Chloride () 10 - 40 ml IV UD PRN PRN Reason: SALINE FLUSH Last Admin: 05/25/19 11:39 Dose: 10 ml Documented by: Timolol Maleate (Timoptic) 1 drop RIGHT EYE BID [place] Last Admin: 05/26/19 10:02 Dose: 1 drop Documented by: - Past Medical History Past Medical History (Chronic Problems): Chronic Problems (Last Updated 05/26/19 @ 12:21 by Ariela Nava MD) Chronic kidney disease with end stage renal failure on dialysis (Chronic) CAD in [place] artery (Chronic) Chronic kidney disease on chronic dialysis (Chronic) Glaucoma (Chronic) GERD (gastroesophageal reflux disease) (Chronic) Diabetic retinopathy (Chronic) DDD (degenerative disc disease) (Chronic) Anemia in chronic renal disease (Chronic) History of non-ST elevation myocardial infarction (NSTEMI) (Chronic) Nonrheumatic mitral (valve) insufficiency (Chronic) Secondary pulmonary arterial hypertension (Chronic) Chronic diastolic (congestive) heart failure (Chronic) 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 - Social History Smoking Status: Former smoker Alcohol: None Drugs: None - Family History Paternal Family History: Family History (Last Reviewed 04/14/19 @ 12:39 by MAU Haas) Father Heart disease Hypertension Prostate cancer Mother Hypertension History Items: Cancer - prostate, Heart Disease, Hypertension Sibling Family History: Family History (Last Reviewed 04/14/19 @ 12:39 by MAU Haas) Father Heart disease Hypertension Prostate cancer Mother Hypertension History Items: Diabetes Maternal Family History: Family History (Last Reviewed 04/14/19 @ 12:39 by Dorothy Rizzo NP-C) Father Heart disease Hypertension Prostate cancer Mother Hypertension History Items: Hypertension Review of Systems Constitutional: Denies: Anorexia, Chills, Fever Cardiovascular: Reports: Chest Pain. Denies: Edema Respiratory: Denies: Cough Gastrointestinal: Denies: Abdominal Pain, Nausea, Vomiting Skin: Denies: Rash Neurological: Denies: Balance problems Patient Problems: Active and Suspected Problems (Last Updated 05/26/19 @ 12:21 by Ariela Nava MD) Unstable angina (Acute) - Physical Exam Vitals/I&O's: Vital Signs Temp Pulse Resp BP Pulse Ox 98.0 F 65 16 120/57 L 100 05/26/19 09:00 05/26/19 11:00 05/26/19 11:00 05/26/19 11:00 05/26/19 11:00 Oxygen Flow Rate (L/min) 2 Oxygen Delivery Method Room Air Weight: 89.2 kg Body Mass Index (BMI) 38.4 Finger Stick Blood Glucose 275 Intake and Output for Last 24 Hours 05/24/19 05/25/19 05/26/19 23:59 23:59 23:59 Intake Total 240 / 240 970 / 970 240 / 240 Output Total 0 / 0 Balance 240 / 240 970 / 970 240 / 240 General: Alert, Oriented x3, Cooperative, No apparent distress HEENT: PERRLA, EOMI Lungs: Clear to auscultation Cardiovascular: Regular rate Abdomen: Bowel Sounds Present, Soft, Non Tender, Non-Distended Extremities: No edema Musculoskeletal: No Muscle Wasting Psych/Mental Status: Normal Affect, Appropriate, Alert and oriented to time, place, person, mood and affect Laboratory Results 05/25/19 14:37: POC Glucose 152 H 05/25/19 16:45: POC Glucose 181 H 05/25/19 21:09: POC Glucose 172 H 05/26/19 05:00: Sodium 137, Potassium 5.3 H, Chloride 100, Carbon Dioxide 29.0, Anion Gap 8, BUN 75 H, Creatinine 5.38 H, Estim Creat Clear Calc 8.09, Est GFR (MDRD) Af Amer 10 L, Est GFR (MDRD) Non-Af 9 L, BUN/Creatinine Ratio 13.9, Glucose 153 H, Calcium 8.9, Triglycerides 109, Cholesterol 137, LDL Cholesterol 58, VLDL Cholesterol 22, HDL Cholesterol 57 05/26/19 05:00: C-React Prot High Sens 1.41 05/26/19 06:35: POC Glucose 131 H Current Medications Aspirin (Aspirin, Baby) 81 mg PO DAILY@0800 [facility] Last Admin: 05/26/19 06:37 Dose: 81 mg Documented by: Atorvastatin Calcium (Lipitor) 80 mg PO QHS [facility] Last Admin: 05/25/19 21:10 Dose: 80 mg Documented by: Calcium Acetate (Phoslo Gel Cap) 1,334 mg PO TIDCM [facility] Last Admin: 05/26/19 10:05 Dose: 1,334 mg Documented by: Carvedilol (Coreg) 12.5 mg PO BID [facility] Last Admin: 05/26/19 06:37 Dose: 12.5 mg Documented by: Citalopram Hydrobromide (Celexa) 20 mg PO DAILY [facility] Last Admin: 05/26/19 10:05 Dose: 20 mg Documented by: Clopidogrel Bisulfate (Plavix) 75 mg PO DAILY [facility] Last Admin: 05/26/19 06:37 Dose: 75 mg Documented by: Famotidine (Pepcid) 40 mg PO BID [facility] Last Admin: 05/26/19 10:05 Dose: 40 mg Documented by: Gabapentin (Neurontin) 300 mg PO QHS [facility] Last Admin: 05/25/19 21:10 Dose: 300 mg Documented by: Glucagon () 1 mg IM .X1 PRN PRN Reason: Hypoglycemia Heparin Sodium (Beef Lung) (Heparin 500 Unit/5 Ml (100/Ml)) 500 unit IV UD PRN PRN Reason: HEPARIN FLUSH Heparin Sodium (Porcine) (Heparin Na) 5,000 unit SC Q12 [facility] Last Admin: 05/26/19 10:06 Dose: Not Given Documented by: Hydralazine HCl (Apresoline) 10 mg PO TID [facility] Sodium Chloride () 250 mls @ 15 mls/hr IV .[id number] PRN PRN Reason: Saline Flush Sodium Chloride () 250 mls @ 15 mls/hr IV .[id number] PRN PRN Reason: Additional IVPB Infusion Dextrose (Dextrose 10%-Water) 250 mls @ 999 mls/hr IV .Q16M PRN; Protocol PRN Reason: HYPOGLYCEMIA Sodium Chloride () 1,000 mls @ 0 mls/hr IV .Q0M [facility] Insulin Glargine (Lantus (Bk)) 20 units SC DAILY [facility] Last Admin: 05/26/19 10:03 Dose: 20 units Documented by: Insulin Human Lispro (Humalog Kwikpen (Bk)) 0 unit SC ACHS [facility]; Protocol Last Admin: 05/26/19 06:40 Dose: Not Given Documented by: Isosorbide Mononitrate (Imdur) 60 mg PO BID [facility] Last Admin: 05/26/19 06:44 Dose: 60 mg Documented by: Labetalol HCl (Trandate) 5 mg IV X1 PRN PRN Reason: SBP > 160 prior to sheath pull Morphine Sulfate () 2 mg IV Q3H PRN PRN PRN Reason: Pain Score 6-10/10 Last Admin: 05/26/19 03:28 Dose: 2 mg Documented by: Multivit/Ca Carb/B Cmplx/FA/Prenat (Nephrocaps, Renaphro) 1 capsule PO DAILY [facility] Last Admin: 05/26/19 10:05 Dose: 1 capsule Documented by: Nitroglycerin (Nitrostat) 0.4 mg SUBLINGUAL Q5M PRN PRN Reason: CARDIAC/CHEST PAIN Last Admin: 05/26/19 07:09 Dose: 1 tab Documented by: Ondansetron HCl (Zofran) 4 mg IV Q8H PRN PRN PRN Reason: NAUSEA/VOMITING Last Admin: 05/25/19 11:39 Dose: 4 mg Documented by: Pyridoxine HCl (Vitamin B-6) 100 mg PO DAILY [facility] Last Admin: 05/26/19 10:05 Dose: 100 mg Documented by: Senna (Senokot) 1 tablet PO QHS PRN PRN PRN Reason: Constipation Sodium Chloride () 10 - 40 ml IV UD PRN PRN Reason: SALINE FLUSH Last Admin: 05/25/19 11:39 Dose: 10 ml Documented by: Timolol Maleate (Timoptic) 1 drop RIGHT EYE BID [facility] Last Admin: 05/26/19 10:02 Dose: 1 drop Documented by: Assessment/Plan All Active Problems (Last Updated 05/26/19 @ 12:21 by Ariela Nava MD) Unstable angina (Acute) 1. ESRD HD , , Sun. Last dialysis on 05/24 at [facility]. Next dialysis 2. unstable angina s/p heart cath today. cardiology following 3. DM2 primary mgmt 4. HTN stable
--- NOTE | 2019-05-26 12:21 | DS.PCM_ITS ---
Discharge Date and Diagnosis - Problem List Patient Problems: Active and Suspected Problems (Last Updated 05/26/19 @ 12:21 by Ariela Nava MD) Unstable angina (Acute) Date of Admission: 05/24/19 Date of Discharge: 05/26/19 - Primary Discharge Diagnosis Active and Suspected Problems (Last Updated 05/26/19 @ 09:05 by Ariela Nava MD) Unstable angina, status post cardiac catheterization, no interventions performed. 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) CAD in [place] artery (Chronic) Chronic kidney disease on chronic dialysis (Chronic) Glaucoma (Chronic) GERD (gastroesophageal reflux disease) (Chronic) Diabetic retinopathy (Chronic) DDD (degenerative disc disease) (Chronic) Anemia in chronic renal disease (Chronic) History of non-ST elevation myocardial infarction (NSTEMI) (Chronic) Nonrheumatic mitral (valve) insufficiency (Chronic) Secondary pulmonary arterial hypertension (Chronic) Chronic diastolic (congestive) heart failure (Chronic) 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 Huang, cardiology. Operations: None Procedures: Cardiac catheterization Summary of Care Provided: Patient seen and examined on the day of discharge after she went for cardiac catheterization and she appeared to be to be stable to discharge home. She denies any more chest pain, denies shortness of breath. Her vital signs are stable. The patient is a 58 year old F patient presented to the emergency room because of chest pain and she was found to have dynamic EKG changes. Her EKG revealed no evidence of acute elevation. Initial troponin was less than 0.015 and then started to go up and maximum was 0.336. Patient was continued on aspirin, Plavix, statins, diet. And Coreg. Her vital signs are stable. She underwent cardiac catheterization that revealed triple-vessel CAD, widely patent stent in RCA/PDA, widely patent SVG to OM, widely patent KINCAID to LAD, ejection fraction is 20 to 25% and there was no evidence of acute or new lesions. No interventions performed. Cardiology decided to continue medical treatment at this time. She was started on hydralazine 3 times daily. Patient discharged home in a stable condition, discharged on her same previous home medications with addition of hydralazine 10 mg p.o. 3 times daily, plan to help with cardiology in 2 to 4 weeks, follow-up with nephrology as recommended, recommended follow-up with PCP in 1 to 2 weeks. Patient Problems: Active and Suspected Problems (Last Updated 05/26/19 @ 12:21 by Ariela Nava MD) Unstable angina (Acute) - Physical Exam Vitals/I&O's: Vital Signs Temp Pulse Resp BP Pulse Ox 98.0 F 69 16 95/51 L 95 05/26/19 09:00 05/26/19 12:00 05/26/19 12:00 05/26/19 12:00 05/26/19 12:00 Oxygen Flow Rate (L/min) 2 Oxygen Delivery Method Room Air Weight: 196 lb 10.437 oz Body Mass Index (BMI) 38.4 Finger Stick Blood Glucose 275 Intake and Output for Last 24 Hours 05/24/19 05/25/19 05/26/19 23:59 23:59 23:59 Intake Total 240 / 240 970 / 970 240 / 240 Output Total 0 / 0 Balance 240 / 240 970 / 970 240 / 240 General: Alert, Oriented x3, Cooperative, No apparent distress HEENT: Atraumatic, PERRLA, EOMI, Normocephalic Oral: Moist Mucosa, No Gingival or Mucosal Lesions/ Ulcerations Neck: Supple, No JVD, Negative Carotid Bruits, Trachea Midline, Thyroid Normal Size and Texture Lungs: Clear to auscultation, Normal air movement, No rhonchi, No wheeze, No rales, Diminished Cardiovascular: Regular rate, Regular Rhythm, Normal S1, Normal S2, PMI Normal Abdomen: Bowel Sounds Present, Soft, Non Tender, Non-Distended, No Hepato-splenomegaly Extremities: No clubbing, No cyanosis, No edema Skin: No rashes, No breakdown Lymphatic: No Cervical, Supraclavicular, or Inguinal Adenopathy Neurological: Cranial nerves II-XII grossly intact, Neuro grossly intact Psych/Mental Status: Normal Affect, Appropriate, Alert and oriented to time, place, person, mood and affect Laboratory Results 05/25/19 14:37: POC Glucose 152 H 05/25/19 16:45: POC Glucose 181 H 05/25/19 21:09: POC Glucose 172 H 05/26/19 05:00: Sodium 137, Potassium 5.3 H, Chloride 100, Carbon Dioxide 29.0, Anion Gap 8, BUN 75 H, Creatinine 5.38 H, Estim Creat Clear Calc 8.09, Est GFR (MDRD) Af Amer 10 L, Est GFR (MDRD) Non-Af 9 L, BUN/Creatinine Ratio 13.9, Glucose 153 H, Calcium 8.9, Triglycerides 109, Cholesterol 137, LDL Cholesterol 58, VLDL Cholesterol 22, HDL Cholesterol 57 05/26/19 05:00: C-React Prot High Sens 1.41 05/26/19 06:35: POC Glucose 131 H Current Medications Aspirin (Aspirin, Baby) 81 mg PO DAILY@0800 [facility] Last Admin: 05/26/19 06:37 Dose: 81 mg Documented by: Atorvastatin Calcium (Lipitor) 80 mg PO QHS [facility] Last Admin: 05/25/19 21:10 Dose: 80 mg Documented by: Calcium Acetate (Phoslo Gel Cap) 1,334 mg PO TIDCM [facility] Last Admin: 05/26/19 10:05 Dose: 1,334 mg Documented by: Carvedilol (Coreg) 12.5 mg PO BID [facility] Last Admin: 05/26/19 06:37 Dose: 12.5 mg Documented by: Citalopram Hydrobromide (Celexa) 20 mg PO DAILY [facility] Last Admin: 05/26/19 10:05 Dose: 20 mg Documented by: Clopidogrel Bisulfate (Plavix) 75 mg PO DAILY [facility] Last Admin: 05/26/19 06:37 Dose: 75 mg Documented by: Famotidine (Pepcid) 40 mg PO BID [facility] Last Admin: 05/26/19 10:05 Dose: 40 mg Documented by: Gabapentin (Neurontin) 300 mg PO QHS [facility] Last Admin: 05/25/19 21:10 Dose: 300 mg Documented by: Glucagon () 1 mg IM .X1 PRN PRN Reason: Hypoglycemia Heparin Sodium (Beef Lung) (Heparin 500 Unit/5 Ml (100/Ml)) 500 unit IV UD PRN PRN Reason: HEPARIN FLUSH Heparin Sodium (Porcine) (Heparin Na) 5,000 unit SC Q12 [facility] Last Admin: 05/26/19 10:06 Dose: Not Given Documented by: Hydralazine HCl (Apresoline) 10 mg PO TID [facility] Sodium Chloride () 250 mls @ 15 mls/hr IV .[id number] PRN PRN Reason: Saline Flush Sodium Chloride () 250 mls @ 15 mls/hr IV .[id number] PRN PRN Reason: Additional IVPB Infusion Dextrose (Dextrose 10%-Water) 250 mls @ 999 mls/hr IV .Q16M PRN; Protocol PRN Reason: HYPOGLYCEMIA Sodium Chloride () 1,000 mls @ 0 mls/hr IV .Q0M [facility] Insulin Glargine (Lantus (Bk)) 20 units SC DAILY [facility] Last Admin: 05/26/19 10:03 Dose: 20 units Documented by: Insulin Human Lispro (Humalog Kwikpen (Bk)) 0 unit SC ACHS [facility]; Protocol Last Admin: 05/26/19 06:40 Dose: Not Given Documented by: Isosorbide Mononitrate (Imdur) 60 mg PO BID [facility] Last Admin: 05/26/19 06:44 Dose: 60 mg Documented by: Labetalol HCl (Trandate) 5 mg IV X1 PRN PRN Reason: SBP > 160 prior to sheath pull Morphine Sulfate () 2 mg IV Q3H PRN PRN PRN Reason: Pain Score 6-10/10 Last Admin: 05/26/19 03:28 Dose: 2 mg Documented by: Multivit/Ca Carb/B Cmplx/FA/Prenat (Nephrocaps, Renaphro) 1 capsule PO DAILY [facility] Last Admin: 05/26/19 10:05 Dose: 1 capsule Documented by: Nitroglycerin (Nitrostat) 0.4 mg SUBLINGUAL Q5M PRN PRN Reason: CARDIAC/CHEST PAIN Last Admin: 05/26/19 07:09 Dose: 1 tab Documented by: Ondansetron HCl (Zofran) 4 mg IV Q8H PRN PRN PRN Reason: NAUSEA/VOMITING Last Admin: 05/25/19 11:39 Dose: 4 mg Documented by: Pyridoxine HCl (Vitamin B-6) 100 mg PO DAILY [facility] Last Admin: 05/26/19 10:05 Dose: 100 mg Documented by: Senna (Senokot) 1 tablet PO QHS PRN PRN PRN Reason: Constipation Sodium Chloride () 10 - 40 ml IV UD PRN PRN Reason: SALINE FLUSH Last Admin: 05/25/19 11:39 Dose: 10 ml Documented by: Timolol Maleate (Timoptic) 1 drop RIGHT EYE BID [facility] Last Admin: 05/26/19 10:02 Dose: 1 drop Documented by: Discharge Activity: Return to Normal Activity Weight Bearing Status: Weight bearing as tolerated Call your doctor if you observe: Fever of 101 or Higher, Shortness of breath, Dizziness, Fainting spells, Chest pain, Increased palpitations (irregular heartbeat), Uncontrolled pain Home Medications: Medications to take at Discharge Famotidine [Pepcid] 40 mg PO BID 06/07/17 Gabapentin [Neurontin] 300 mg PO QHS 06/07/17 Pyridoxine HCl (Vitamin B6) [B-6] 100 mg PO DAILY 06/07/17 Sennosides [Senna] 8.6 mg PO QHS PRN 06/07/17 ergocalciferol (vitamin D2) 1,250 mcg (50,000 unit) capsule 50,000 unit PO QMONTH cap 08/01/17 Citalopram Hydrobromide [Citalopram HBr] 20 mg PO DAILY 11/15/18 Folic Acid/Vitamin B Comp W-C [Nephrocaps, Renaphro] 1 cap PO DAILY 11/15/18 Timolol 0.5% [Timoptic] 1 drp RIGHT EYE BID 11/15/18 Insulin Glargine,Hum.rec.anlog [Toujohn Solostkit] 20 unit SQ DAILY #0 11/19/18 aspirin 81 mg chewable tablet 81 mg PO DAILY@0800 #90 tab 03/06/19 albuterol sulfate 90 mcg/actuation aerosol inhaler 1 puff INHALATION Q6H PRN PRN #1 inhaler 04/14/19 Atorvastatin Calcium 80 mg PO QHS 05/24/19 Carvedilol 12.5 mg PO BID 05/24/19 Clopidogrel Bisulfate [Clopidogrel] 75 mg PO DAILY 05/24/19 Isosorbide Mononitrate [Isosorbide Mononitrate ER] 60 mg PO BID 05/24/19 Calcium Acetate 2 cap PO TIDCM 05/25/19 hydrALAZINE [Apresoline] 10 mg PO TID #90 tab 05/26/19 Following Prescrptions Were Given to Patient: hydrALAZINE [Apresoline] 10 mg PO TID #90 tab Transmission Status: Received by [facility] Primary Care Physician: Brayden King Chi, MD [Primary Care Provider] - Please follow up with your Primary Care Physician in: 1-2 weeks. Please Follow Up With: Freddie Huang MD When: 2-4 weeks. Please Follow Up With: Brayden King Chi, MD Disposition: Home Minutes spent on discharge:: 26 Patient Condition:: Stable Medical Necessity - Tobacco Use Smoking Status: Former smoker Tobacco Use: Non-smoker Meaningful Use Info Meaningful Use Diagnoses (Choose all that apply): None applicable Code Visit Inpatient E&M: 07987 Disch Hosp
[2019-05-26] MEDS: hydrALAZINE 10 MG Tablet PO (13:07)
[2019-05-26] MEDS: 0.9% Saline Lock 10 ML Syringe IV (13:08)
[2019-05-26] MEDS: Insulin Lispro 100 UNIT/ML INSULN.PEN SC (13:08)
[2019-05-26 13:10] LABS: Bedside Glucose 185 mg/dL (70-110)
--- NOTE | 2019-05-26 13:31 | NURSING ---
Bed rest complete. Walked with patient in hallway. Tolerated well. Dressing C/D/I. No hematoma noted. D/c teaching completed.
--- NOTE | 2019-05-27 13:40 | CASEMGMT ---
Addendum entered by Rahat Chawla 05/27/19 13:53: Attempted call. Pt was available. Intro role of CM to pt. She had questions re: new medication. Reviewed Hydralazine with her. Pt states her medication is being sent to home today. No other questions. Reviewed f/u appointments. Pt has list and states she will be able to go. No further questions per pt. No care improvement suggestions were given. Claire ROWLEY RN AC Original Note: ABDIAS PAZ DC PHONE CALL DC DATE: 05.26.2019 DC Disposition: Home Diagnosis on Discharge: Unstable Angina LACE/STRATA: 03/26 Attempted call to phone. No answer. Claire ROWLEY RN ACM
== END 2019-05-26 14:36 | disposition home or self-care (01) | DRG 280 ==
LOC: ED 22:25 → PCU 05-25 00:15
PROVIDERS: Internal Medicine; Internal Medicine Cardiovascular Disease; Admitting Provider Internal Medicine; Emergency Provider Emergency Medicine; PCP Family Medicine Geriatric Medicine; Visit Provider Hospitalist
DX: I21.4 Non-ST elevation (NSTEMI) myocardial infarction (principal); N18.6 End stage renal disease; N25.81 Secondary hyperparathyroidism of renal origin; I13.2 Hypertensive heart and chronic kidney disease with heart failure and with stage 5 chronic kidney disease, or end stage renal disease; I50.32 Chronic diastolic (congestive) heart failure; I25.110 Atherosclerotic heart disease of native coronary artery with unstable angina pectoris; G47.33 Obstructive sleep apnea (adult) (pediatric); I25.5 Ischemic cardiomyopathy; E78.5 Hyperlipidemia, unspecified; E11.22 Type 2 diabetes mellitus with diabetic chronic kidney disease; J44.9 Chronic obstructive pulmonary disease, unspecified; Z99.2 Dependence on renal dialysis; Z79.82 Long term (current) use of aspirin; I25.2 Old myocardial infarction; Z95.1 Presence of aortocoronary bypass graft; Z87.891 Personal history of nicotine dependence; Z95.5 Presence of coronary angioplasty implant and graft; Z79.4 Long term (current) use of insulin; K21.9 Gastro-esophageal reflux disease without esophagitis; E11.319 Type 2 diabetes mellitus with unspecified diabetic retinopathy without macular edema; H40.9 Unspecified glaucoma; D63.1 Anemia in chronic kidney disease; I34.0 Nonrheumatic mitral (valve) insufficiency; I27.21 Secondary pulmonary arterial hypertension; E66.01 Morbid (severe) obesity due to excess calories; Z68.38 Body mass index [BMI] 38.0-38.9, adult
CPT/HCPCS: 36415; 71045; 80048; 80061; 82962; 84484; 85025; 85610; 86141; 93005; 93306; 93459; 94002; 94003; 99283; J7040; Q9957; A4216; C1769; C1894; J2405; Q9967

== ENCOUNTER 2019-05-29 08:02 | Outpatient (RCR) | payer MEDICARE, MEDICAID, SELFPAY ==
[2019-04-14 07:52] VITALS: BMI 37.2
[2019-05-24 22:50] VITALS: BMI 38.4
== END 2019-06-21 23:59 ==
LOC: DC 08:02
PROVIDERS: Family Provider Family Medicine Geriatric Medicine; PCP Family Medicine Geriatric Medicine; Visit Provider Internal Medicine Cardiovascular Disease
DX: Z71.3 Dietary counseling and surveillance (principal); N25.81 Secondary hyperparathyroidism of renal origin; E11.22 Type 2 diabetes mellitus with diabetic chronic kidney disease; E66.01 Morbid (severe) obesity due to excess calories; I12.0 Hypertensive chronic kidney disease with stage 5 chronic kidney disease or end stage renal disease; N18.6 End stage renal disease; Z99.2 Dependence on renal dialysis; E87.6 Hypokalemia
CPT/HCPCS: G0109

== ENCOUNTER → 2019-06-03 15:05 | Outpatient (CLI) | payer MEDICARE, MEDICAID, SELFPAY ==
[2019-05-24 22:50] VITALS: BMI 38.4
[2019-06-03 17:23] LABS: Absolute Lymphocyte Count 1.09 X10^3/uL (0.83-4.51); Absolute Neutrophil Count 4.2 X10^3/uL (2.0-7.7); Basophil# 0.04 X10^3/uL; Basophil% 0.6 % (0-1); Eosinophil# 0.26 X10^3/uL; Eosinophils% 4.2 % (0-5); Hematocrit 34.2 % (37-47); Hemoglobin 10.6 g/dL (12.0-15.0); Lymphocyte # 1.09 X10^3/ul (4.0); Lymphocyte % 17.5 % (19-41); Mean Corpuscular Hgb 29.8 pg (27.0-32.0); Mean Corpuscular Volume 96.1 fL (81-99); Mean Platelet Vol. 10.4 fl (6.2-12.0); Monocyte# 0.62 X10^3/uL; NRBC Flagged by Analyzer 0 % (0-5); Neutrophil # 4.19 X10^3/uL (2.7-7.7); Neutrophil % 67.4 % (47-70); Platelet Count 272 K/mm3 (150-450); RBC Distribution Width SD 59.3 fl (35.1-43.9); Red Blood Count 3.56 M/mm3 (4.2-5.4); White Blood Count 6.2 K/mm3 (4.4-11.0)
[2019-06-03 17:41] LABS: Vitamin D,25 Hydroxy 34.6 ng/mL (29.95-100.01)
[2019-06-03 17:45] LABS: ALB/GLOB Ratio 0.8 RATIO (0.9-2.4); AST(SGOT) 54 U/L (15-37); Alanine Aminotransfer ALT/SGPT 92 U/L (13-56); Albumin, Serum 3.3 g/dL (3.2-5.0); Alkaline Phosphatase 128 U/L (45-117); Anion Gap 6 (5-15); BUN 38 mg/dL (7-18); BUN/Creat Ratio 9.8 RATIO (10-20); Calcium,Total 8.9 mg/dL (8.5-10.1); Chloride 99 mmol/L (98-107); Creatinine, Serum 3.86 mg/dL (0.55-1.02); EST Glomerular Filtration Rate 13 mL/min (>60); Est Glom Filt Rate - Afr Amer 15 mL/min (>60); Globulin 4.3 g/dL (2.2-4.2); Glucose 169 mg/dL (74-106); Potassium 5.3 mmol/L (3.5-5.1); Protein, Total 7.6 g/dL (6.4-8.2); Sodium Level 137 mmol/L (136-145); Thyroid Stim Hormone (TSH) 0.78 uIU/mL (0.358-3.74)
== END ==
PROVIDERS: PCP Family Medicine Geriatric Medicine; Visit Provider Family Medicine Geriatric Medicine
DX: I10 Essential (primary) hypertension (principal); E11.9 Type 2 diabetes mellitus without complications; E55.9 Vitamin D deficiency, unspecified
CPT/HCPCS: 36415; 80053; 82306; 84443; 85025

== ENCOUNTER → 2019-06-09 08:53 | Outpatient (CLI) | payer MEDICARE, MEDICAID, SELFPAY ==
[2019-04-14 07:52] VITALS: BMI 37.2
[2019-05-24 22:50] VITALS: BMI 38.4
[2019-06-04 11:27] VITALS: BMI 37.3
--- NOTE | 2019-06-09 08:53 | AAAS_ITS ---
Reason For Study: R/O AAA for ECP therapy Aorta Measurements Aorta Doppler Measurements Proximal aorta measures1.54 x 1.69cm. in cross- Peak systolic flow velocities within the proximal sectional axis. aorta measure 106.4 cm/sec. Proximal aorta measures1.63cm. in longitudinal Peak systolic flow velocities within the mid aorta axis. measure 99.0 cm/sec. Mid aorta measures1.6 x 1.63cm. in cross-sectionalPeak systolic flow velocities within the distal axis. aorta measure 105.2 cm/sec. Mid aorta measures1.59cm. in longitudinal axis. Distal aorta measures1.51 x 1.71cm. in cross- sectional axis. Distal aorta measures1.58cm. in longitudinal axis. Procedure Aorta IVC Iliac vasculature or bypass grafts [id number]. Technically difficult study. Unable to visualize the CIAs due to body habitus and bowel gas. Exam performed in department. Interpretation Summary Normal abdominal aorta with a maximum diameter distally at 1.59 x 1.71 cm. Minimally increased peak systolic velocity in the proximal abdominal aorta at 106 cm/s flow Body habitus precludes visualization of the iliac arteries Ordering Physician: Freddie Huang Referring Physician: Brayden King Chi Performed By: Sangeetha Haynes RDCS, RVT
== END ==
PROVIDERS: PCP Family Medicine Geriatric Medicine; Referring Provider Internal Medicine Cardiovascular Disease; Visit Provider Internal Medicine Cardiovascular Disease
DX: I21.4 Non-ST elevation (NSTEMI) myocardial infarction (principal); I50.32 Chronic diastolic (congestive) heart failure; I25.728 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(s) with other forms of angina pectoris; I25.2 Old myocardial infarction; N18.6 End stage renal disease; Z98.61 Coronary angioplasty status; Z95.1 Presence of aortocoronary bypass graft; Z99.2 Dependence on renal dialysis
CPT/HCPCS: 76706; 93798

== ENCOUNTER → 2019-06-16 10:43 | Outpatient (CLI) | payer MEDICARE, MEDICAID, SELFPAY ==
[2019-05-24 22:50] VITALS: BMI 38.4
[2019-06-04 11:27] VITALS: BMI 37.3
[2019-06-09 13:17] VITALS: BMI 38.1
== END ==
PROVIDERS: PCP Family Medicine Geriatric Medicine; Referring Provider Internal Medicine Cardiovascular Disease; Visit Provider Internal Medicine Cardiovascular Disease
DX: I25.118 Atherosclerotic heart disease of native coronary artery with other forms of angina pectoris (principal)

== ENCOUNTER 2019-06-20 11:30 | Outpatient (RCR) | payer MEDICARE, MEDICAID, SELFPAY ==
[2019-04-14 07:52] VITALS: BMI 37.2
[2019-05-24 00:48] VITALS: BP 128/60; BP 144/62
[2019-05-24 22:50] VITALS: BMI 38.4
--- NOTE | 2019-06-04 11:15 | CR.ITP_ITS ---
Diagnosis - General Information Admitting Diagnosis: STEMI, NSTEMI, PCI W/STENT Personal Learning Style:: Audio/Visual Barriers to Learning: Vision Impairment Stage of change r/t lifestyle modifications:: Action Gave educational material for:: Treating Heart Disease, Emotions & Heart Disease, Stress Management & Relaxation, Sleep Disorders & Heart Disease, How The Heart Works, What it means to have Heart Disease, How Coronary Artery Disease is Diagnosed, Heart Procedures, What Heart Medications Do, Risk Factors & Modifications, Living an Active Life, Nutrition - Education/Goals Individual Counseling: Initial Assessment: Abnormal Cholesterol Levels, High Blood Pressure, Overweight/Obesity, Diabetes Cardiac Rehabilitation Goals: 1. Maintain the individual as the primary focus of care. 2. To improve the patient's quality of life. 3. Identification of cardiac risk factors and provide cardiac risk factor management. 4. Enhance the psychosocial status of the patient. 5. Reconditioning enough to allow the patient to resume customary activities. 6. Control symptoms of cardiac disease Personal Goals: Initial Assessment: Improve management of stress and emotions, Improve energy level, Participate in home exercise program, Get back to work, or to resume activities faster, Improve muscle strength and endurance, Improve diet and eating habits (eat healthier), Control risk factors (learn risk factor modification) Scale for measuring improvement of personal goals: Enter appropriate number in Comments. 2 = Unchanged. 3 = Slightly Better. 4 = Moderate Improvement. 5 = Met my Goal - Diagnosis & Disease Process Plan/Interventions: Assist Pt to ID & engage in lifestyle modification to reduce CVD risk, Instruct on individual risk factors, Review symptoms of angina & emergency actions, Review secondary diagnosis & identify educational needs. 30 day Reassessments:: Progressing 30 day Reassessments:: Progressing 30 day Reassessments:: Progressing - Safety Referral to Physical Therapy: No Referral to [facility] Case Management: No Fall Risk Assessed:: Yes Assistive Devices:: Cane Exercise - 90-day Assessment - Visit Date of Eval: 06/04/19 Session #:: 29 - MISSED 2 WEEKS OF CR DUE TO REHOSPITALIZATION NSTEMI - Physician Prescribed Exercise Modalities: NuStep, SciFit Frequency: 3x/week for 12 weeks [36 sessions] Intensity: 60-80% of age predicted maximum heart rate reserve Current METSs:: 4.0 NO INCREASE Target Heart Rate:: 104-136 Target RPE 12-16:: Current RPE:: 13-14 Maximum Excercise HR:: 83 Resting Blood Pressure: 142/60 Maximum Exercise Blood Pressure: 160/72 EKG Type: NSR WITHOUT ECTOPY - Outcomes & Goals Goals:: Verbalizes understanding of THR, RPE & goal METS by session 6, Documents in home exercise log/reports 30 min aerobic 5 day/wk by DC, Demonstrates accurate pulse taking by DC - Intervention & Plan Exercise Program Goals: Instruct on personal THR & RPE, Instruct on MET level & personal MET goal, Show patient to take own pulse /validate performance until accurate, Instruct on home exercise - 30-day Reassessments 30 day Reassessments:: Progressing - Physical Activity Home Exercise Physical Activity - Home Exercise: Safe Exercise, Warm-up, Self-monitoring, Cool-Down, Home Exercise > 30 min Daily, Sitting Time <3 hours/daily - Outcomes & Goals Outcomes/Goals: Demonstrates correct Warm-up/exercise Cool-Down (S3) if = 2.5 METs, Verbalizes symptoms of exercise intolerance by Session 3 (S3), Demonstrate safe equipment use (S3) & follows exercise prescrition (6) - Intervention & Plan Plan/Intervention: Instruct warm-up & cool-down if exercising at > 2 METs, Instruct on symptoms of exercise intolerance & actions to take, Instruct & monitor on saf, Assess intial functional capacity & safety risk - 30-day Reassessments 30 day Reassessments:: Progressing Nutrition - 90-Day Assessment - Program Goals Nutrition Program Goals: LDL <100 optimal. 100 - 129 Near optimal. 130 - 159 Borderline High. 160 - 189 High. Total Cholesterol <200 desirable. 200 - 239 Borderline High. >/= 240 High. HDL < 40 Low >/=60 High. Triglycerides <150 desirable. <199 optimal. VlDL 5 - 40. HgbA1C <7%. BMI <25 Patient has diagnosis of Hyperlipidemia (ICD E78)?: Yes - Visit Date of Assessment:: 06/04/19 Session #:: 29 - Cholesterol/Lipids Triglycerides (mg/dL): 87 Total Cholesterol (mg/dL): 119 LDL Cholesterol (mg/dL): 41 HDL Cholesterol (mg/dL): 61 Determine presence & major risk factors that modify LDL goal: Hypertension or hypertensive medication, Family history of premature CHD in Male < 55 years: female <65 yearsFa, Age men > 45 years; women >/= 55 years Outcomes/Goals: Pt IDs own risk factors & lifestyle modifications by Session 10, Verbalizes symptoms of angina & response by session 3., Pt independently manages Intervention/Plan: Instruct on personal lipid levels & lipid goals/NCEP guidelines, Instruct on cholesterol Referral to dietitian:: No 30-day Reassessments:: Progressing - Diabetes (Other Core Measures) Diabetes Type: Diagnosis Type II ICD-10 E11 Fasting blood glucose:: 380 Insulin dependent injection/pump?: Yes Non-Insulin Dependent?: Yes Do you monitor your blood sugar at home?: Yes Referral to Diabetic Clinic:: Yes Outcomes/Goals:: Able to state symptoms of, Able to state, Able to state Intervention/Plan:: Instruct on, Refer to, Instruct on 30-day Reassessments:: Progressing - Weight Mgt (Other Care) Not Applicable: No Height: 5 ft 1 in Weight:: 197 lb 8 oz BMI: 37.3 Diagnosis Overweight/Obesity BMI> 30% ICD-10 E66: Yes Diagnosis High BMI/Morbid Obesity BMI> 35% ICD-10 Z68: Yes Outcomes/Goals: Pt sets, maintains & shows weight loss goal & trend during rehab Intervention/Plan: Instruct on ideal BMI & set weight loss goal w/patient, Assist pt to ID & incorporate diet changes for weight loss by S9, Refer to Structured Weight Loss program as appropriate, Encourage goal of using 250- 300dcal per session for weight loss 30 day Reassessments:: Not Met - Healthy Eating Habits Will attend diet classes:: Yes Outcomes/Goals:: Consume diet rich in vegs,fruits,whole grain/high fiber,fish,lean meat, Limit sat/trans fats,cholesterol & added salts & sugars Intervention/Plan:: Assess current eating habits 30-day Reassessments:: Not Met - Education Gave educational materials for:: Signs & symptoms of hypoglycemia, Signs & symptoms of hyperglycemia, Relate diabetes to coronary artery disease, Healthy eating Medical- 90-Day Assessment - Visit Date of Eval: 06/04/19 Session #:: 29 - Medication Compliance Preventative Medication(s):: Aspirin, Clopidogrel/P2Y12 inhibit, Statin/lipid, Beta ivy H/O mental health issues: depression, anxiety, or addiction?: No Doesn?t believe in the benefits of treatment?: No Believes medications are unnecessary or harmful?: No Has a concern about medication side effects?: No Expresses concern over the cost of medications?: No Outcomes/Goals: Verbalizes medications,desired effect & common side effects @ DC, Pt self-reports following medication regimen, Keeps card in wallet w/medications listed by DC Interventions/plans: Instruct on medication effects & side effects, Review medication list w/patient every two weeks, Instruct importance of taking meds as ordered & assist problem solving 30-day Reassessments:: Met - Tobacco Use Tobacco Use: Non-smoker - Hypertension Hypertension Diagnosis:: Hypertension ICD-10 I10 Resting Blood Pressure:: 142/60 [place] [employer] Hypertension Guidelines: [place] [employer] Hypertension Guidelines. Normal BP Less than 120/80. Elevated BP 120/80. Hypertension Stage 1: BP 130-139/80-89. Hypertesnion Stage 2: BP 140 or higher/90 or higher. Hypertension Crisis: BP higher than 180/120 Peak Exercise Blood Pressure:: 158/72 Outcomes/Goals: Able to verbalize/achieve optimal blood pressure <130/80, Incorporates diet changes & exercise for blood pressure control by DC Interventions/plan: Instruct on optimal blood pressure, hypertension & medications, Instruct on effects of sodium, alcohol, stress, exercise &hypertension 30 day Reassessments:: Progressing - Tobacco Cessation Referral Smoking Cessation Referral:: No Individual Education/Counseling:: No Education Schedule Given:: Yes Psychosocial - 90-Day Assess - VIsit Date of Eval: 06/04/19 Session #:: 29 Not Applicable: Yes History of previous Mental disease:: Yes History of Emotional Disorders: Anxious, Depression Self-reported stressors: Family, Financial, Medical/Health - Target Goals Target Goals: Assess presence or absence of depression. Using a valid screening tool, maximizes coping skills. Positive support system - Psychosocial Test Tool Used:: Chris Spicer QOL Cardiac, PHQ-9 Questionnaire phq-9 Severity: Severity. 1-4 Minimal Depression. 5-9 Mild Depression. 10-14 Moderate Depression. 15-19 Moderately Sever Depression. 20-27 Severe Depression. Rule: - Referral to Behavioral Health PS - Interventions: Yes Referral to Behavioral Health if PHQ-9 score >9: - PHQ SCORE-10 INDICATE MODERATE DEPRESSION, Yes Referral to Physician if PHQ-9 if score is 5-9: - PHQ SCORE 10 MODERATE DEPRESSION, Yes Attend Stress Management Classes, No Referral to [facility] - Outcomes/Goals: See list Psychosocial Outcomes/Goals:: ID's personal stressors & 2 strategies to manage stress by discharge - Intervention/Plan: See List Interventions/Plan:: Assess stressors,coping strategies & signs of derpression on admission, Instruct/assist pt to develop coping & personal stress Mgt strategies, Refer to Behavioral Health if appropriate, Refer to Physician if appropriate, Instruct patient to recognize signs & symptoms of depression, Instruct patient to recog - 30-day Reassessments: 30 day Reassessments:: Not Met Patient Health Questionnaire 90-Day Re-eval Assessment 1. Little interest or pleasure in doing things: Several days 2. Feeling down, depressed, or hopeless: More than half the days 3. Trouble falling or staying asleep, or sleeping too much: More than half the days 4. Feeling tired or having little energy: More than half the days 5. Poor appetite or overeating: Several days 6. Feeling bad about yourself -- or that you are a failure or have let yourself or your family down: Several days 7. Trouble concentrating on things, such as reading the newspaper or watching television: Several days 8. Moving or speaking so slowly that other people could have noticed. Or the opposite - being so fidgety or restless that you have been moving around a lot more than usual: Not at all 9. Thoughts that you would be better off , or of hurting yourself in some way: Not at all How difficult have these problems made it for you to do your work, take care of things at home, or get along with other people?: Somewhat difficult Total Score: 10 Self-Efficacy 90-Day Re-eval Assessment We would like to know how confident you are in doing certain activities. Please select your confidence level for:: Select your confidence level for the following using the scale 1-10 where 1 is not at all confident and 10 is totally confident. Your score is the average of all 6 responses. Fatigue: How confident are you that you can keep the fatigue caused by your disease from interfering with the things you want to do? Select Number: 5 Physical Discomfort or Pain: How confident are you that you can keep the ph ysical discomfort or pain of your disease from interfering with the things you want to do? Select Number: 4 Emotional Distress: How confident are you that you can keep the emotional distress caused by your disease from interfering with the things you want to do? Select Number: 6 Other Symptoms or Health Problems: How confident are you that you can keep other symptoms or health problems from interfering with the things you want to do? Select Number: 5 Different Tasks and Activities: How confident are you that you can do the different tasks and activities needed to manage your health condition so as to reduce your need to see a doctor? Select Number: 6 Medication: How confident are you that you can do things other than just taking medication to reduce how much your illness affects your everyday life? Select Number: 9 Total Score:: 5
[2019-06-04 11:27] VITALS: BP 142/60; BP 158/72; BMI 37.3
== END 2019-06-21 23:59 ==
LOC: CR 11:30
PROVIDERS: Family Provider Family Medicine Geriatric Medicine; PCP Family Medicine Geriatric Medicine; Referring Provider Internal Medicine Cardiovascular Disease; Visit Provider Internal Medicine Cardiovascular Disease
DX: I21.4 Non-ST elevation (NSTEMI) myocardial infarction (principal); I25.728 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(s) with other forms of angina pectoris; Z98.61 Coronary angioplasty status
CPT/HCPCS: 93798

== ENCOUNTER 2019-06-25 11:30 | Outpatient (RCR) | payer MEDICARE, MEDICAID, SELFPAY ==
[2019-06-04 11:27] VITALS: BMI 37.3
[2019-06-09 13:17] VITALS: BMI 38.1
[2019-06-22 00:37] VITALS: BP 142/60; BP 158/72
== END 2019-07-22 23:59 ==
LOC: CR 11:30
PROVIDERS: Family Provider Family Medicine Geriatric Medicine; PCP Family Medicine Geriatric Medicine; Referring Provider Internal Medicine Cardiovascular Disease; Visit Provider Internal Medicine Cardiovascular Disease
DX: I21.4 Non-ST elevation (NSTEMI) myocardial infarction (principal); I25.728 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(s) with other forms of angina pectoris; Z98.61 Coronary angioplasty status
CPT/HCPCS: 93798

== ENCOUNTER → 2019-06-30 11:48 | Outpatient (CLI) | payer MEDICARE, MEDICAID, SELFPAY ==
[2019-06-04 11:27] VITALS: BMI 37.3
[2019-06-09 13:17] VITALS: BMI 38.1
== END ==
PROVIDERS: PCP Family Medicine Geriatric Medicine; Referring Provider Family Medicine Geriatric Medicine; Visit Provider Family Medicine Geriatric Medicine
DX: R68.83 Chills (without fever) (principal)
CPT/HCPCS: 87633

== ENCOUNTER 2019-07-02 06:15 | Outpatient (RCR) | payer MEDICARE, MEDICAID, SELFPAY ==
[2019-06-04 11:27] VITALS: BMI 37.3
[2019-06-09 13:17] VITALS: BMI 38.1
== END 2019-07-22 23:59 ==
LOC: CR 06:15
PROVIDERS: PCP Family Medicine Geriatric Medicine; Visit Provider Internal Medicine Cardiovascular Disease
DX: I25.118 Atherosclerotic heart disease of native coronary artery with other forms of angina pectoris (principal)

== ENCOUNTER 2019-08-27 06:36 | Outpatient (RCR) | payer MEDICARE, MEDICAID, SELFPAY ==
[2019-06-04 11:27] VITALS: BMI 37.3
[2019-07-23 00:09] VITALS: BMI 37.2
== END 2019-09-21 23:59 ==
LOC: CR 06:36
PROVIDERS: PCP Family Medicine Geriatric Medicine; Referring Provider Internal Medicine Cardiovascular Disease; Visit Provider Internal Medicine Cardiovascular Disease
DX: I25.118 Atherosclerotic heart disease of native coronary artery with other forms of angina pectoris (principal)

== ENCOUNTER 2019-09-22 06:43 | Outpatient (RCR) | payer MEDICARE, MEDICAID, SELFPAY ==
[2019-06-04 11:27] VITALS: BMI 37.3
[2019-07-23 00:09] VITALS: BMI 37.2
== END 2019-10-21 23:59 ==
LOC: CR 06:43
PROVIDERS: PCP Family Medicine Geriatric Medicine; Referring Provider Internal Medicine Cardiovascular Disease; Visit Provider Internal Medicine Cardiovascular Disease
DX: I25.118 Atherosclerotic heart disease of native coronary artery with other forms of angina pectoris (principal)

== ENCOUNTER 2019-09-22 13:45 | Emergency (ER) | payer MEDICARE, MEDICAID, SELFPAY ==
[2019-06-04 11:27] VITALS: BMI 37.3
[2019-09-22 08:38] VITALS: BMI 37.5
[2019-09-22 13:46] VITALS: BP 170/94; PULSE 84; RESP 22; TEMP 36.7; O2SAT 100; BMI 40.3
[2019-09-22 13:53] VITALS: RESP 24; O2SAT 99
--- NOTE | 2019-09-22 14:34 | EKG12_ITS ---
Test Reason : CP Blood Pressure : / mmHG Vent. Rate : 084 BPM Atrial Rate : 084 BPM P-R Int : 172 ms QRS Dur : 086 ms QT Int : 410 ms P-R-T Axes : 057 -54 128 degrees QTc Int : 484 ms Normal sinus rhythm Possible Left atrial enlargement Left axis deviation Left ventricular hypertrophy ST & T wave abnormality, consider lateral ischemia Prolonged QT Abnormal ECG Confirmed by KELVIN ZARAGOZA, JOCELYNE ([id number]), assignment editor MADDY STERLING ([id number]) on 09/25/2019 10:34:35 AM Referred By: MENA/ Confirmed By:JOCELYNE WARREN MD
--- NOTE | 2019-09-22 14:42 | ED.VIS.GEN ---
History of Present Illness Chief Complaint: Chest Pain Informant: Patient Narrative: Patient has a extensive cardiac history and is status post CABG and PCI. 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 She developed chest pressure and shortness of breath which she states is better now with rest and oxygen. She states that it was a little bit different than her prior chest pressures as it stayed more in the center rather than going on the left side and going into her arm. Past Medical History - Allergies and Home Meds Allergies/Adverse Reactions: Allergies lisinopril Allergy (Verified 09/22/19 13:46) Unknown ranitidine HCl [From Zantac] Allergy (Verified 09/22/19 13:46) Hives azithromycin Adverse Reaction (Verified 09/22/19 13:46) Nausea/Vom/Diarrhea Primary Care Physician: Brayden King Chi, MD [Primary Care Provider] - Surgical History: angioplasty, cataract, coronary bypass surgery - CABG x 3., hysterectomy, - - AVF placement, back surgery. Smoking Status: Former smoker - Family History Paternal Family History: Family History (Last Reviewed 09/22/19 @ 08:38 by Anel Cesar) Father Heart disease Hypertension Prostate cancer Mother Hypertension Family History: Reports: Cancer - prostate, Heart Disease, Hypertension Sibling Family History: Family History (Last Reviewed 09/22/19 @ 08:38 by Anel Cesar) Father Heart disease Hypertension Prostate cancer Mother Hypertension Family History: Reports: Diabetes Maternal Family History: Family History (Last Reviewed 09/22/19 @ 08:38 by Anel Cesar) Father Heart disease Hypertension Prostate cancer Mother Hypertension Family History: Reports: Hypertension Review of Systems General: Denies: Chills, Fever, Sweats Eyes: Denies: Visual changes - bilaterally, Diplopia ENT: Denies: Rhinorrhea, Sore throat Cardiovascular: Reports: Chest pain. Denies: Palpitations Respiratory: Reports: Dyspnea. Denies: Cough, Dyspnea on exertion Gastrointestinal: Denies: Abdominal pain, Nausea, Vomiting, Diarrhea, Melena, Hematochezia Genitourinary: Denies: Dysuria, Hematuria, Frequency Musculoskeletal: Denies: Back pain, Extremity Pain Skin: Denies: Rash, Wounds Neurological: Denies: Headache, Weakness, Numbness Physical Exam Vital Signs/Narrative: Vital Signs Temp Pulse Resp BP Pulse Ox 09/22/19 13:53 24 H 99 09/22/19 13:46 98.1 F 84 22 H 170/94 H 100 Inital Vital Signs reviewed: Yes General: Well nourished, Well developed, No Acute Distress Head: Normocephalic, Atraumatic Eyes: Perrl, EOMI ENT: Moist mucous membranes, No rhinorrhea Neck: Supple, Nontender Cardiovascular: Regular rate, Regular rhythm, No murmurs Respiratory: No distress, CTA bilaterally, Chest nontender Abdomen: Soft, Nontender, Nondistended, Normal bowel sounds Back: Nontender, Normal Inspection Extremities: Nontender, No edema Skin: Normal color, No rash Neurological: Alert, Oriented x3, Cranial nerves II-XII grossly intact, Normal Strength, Normal Sensation Psychological: Normal affect, Normal Mood Diagnostic/Tx/Re-eval Clinical Impression(s) from Imaging Studies Chest X-Ray 09/22/19 15:00 IMPRESSION: Cardiomegaly and mild degree of vascular congestion. Electronically Signed: Saman Kristina, at 15:22 EDT , Service support , Laboratory Last Values WBC 7.3 K/mm3 (4.4-11.0) 09/22/19 13:50 RBC 3.80 M/mm3 (4.2-5.4) L 09/22/19 13:50 Hgb 12.1 g/dL (12.0-15.0) 09/22/19 13:50 Hct 38.5 % (37-47) 09/22/19 13:50 MCV 101.3 fL (81-99) H 09/22/19 13:50 MCH 31.8 pg (27.0-32.0) 09/22/19 13:50 MCHC 31.4 g/dL (32-36) L 09/22/19 13:50 RDW Std Deviation 57.2 fl (35.1-43.9) H 09/22/19 13:50 RDW Coeff of Lauren 15.2 % (11.6-14.6) H 09/22/19 13:50 Plt Count 299 K/mm3 (150-450) 09/22/19 13:50 MPV 10.6 fl (6.2-12.0) 09/22/19 13:50 Immature Gran % (Auto) 0.400 % (0.0-0.9) 09/22/19 13:50 Neut % (Auto) 64.1 % (47-70) 09/22/19 13:50 Lymph % (Auto) 23.8 % (19-41) 09/22/19 13:50 Stanton % (Auto) 9.3 % (0-10) 09/22/19 13:50 Eos % (Auto) 2.0 % (0-5) 09/22/19 13:50 Baso % (Auto) 0.4 % (0-1) 09/22/19 13:50 Absolute Neuts (auto) 4.7 X10^3/uL (2.0-7.7) 09/22/19 13:50 Absolute Lymphs (auto) 1.74 X10^3/uL (0.83-4.51) 09/22/19 13:50 Nucleated RBC % 0 % (0-5) 09/22/19 13:50 PT 13.6 SECONDS (11.7-14.9) 09/22/19 13:50 INR 1.1 09/22/19 13:50 APTT 30.1 Seconds (24.1-36.2) 09/22/19 13:50 Sodium 139 mmol/L (136-145) 09/22/19 13:50 Potassium 5.4 mmol/L (3.5-5.1) H 09/22/19 13:50 Chloride 97 mmol/L (98-107) L 09/22/19 13:50 Carbon Dioxide 29.0 mmol/L (21.0-32.0) 09/22/19 13:50 Anion Gap 13 (5-15) 09/22/19 13:50 BUN 89 mg/dL (7-18) H 09/22/19 13:50 Creatinine 6.51 mg/dL (0.55-1.02) H 09/22/19 13:50 Estim Creat Clear Calc 6.60 ml/min 09/22/19 13:50 Est GFR (MDRD) Af Amer 8 mL/min (>60) L 09/22/19 13:50 Est GFR (MDRD) Non-Af 7 mL/min (>60) L 09/22/19 13:50 BUN/Creatinine Ratio 13.7 RATIO (10-20) 09/22/19 13:50 Glucose 273 mg/dL (74-106) H 09/22/19 13:50 Calcium 9.3 mg/dL (8.5-10.1) 09/22/19 13:50 Magnesium 2.4 mg/dL (1.6-2.6) 09/22/19 13:50 Troponin I 0.293 ng/mL (<0.045) H 09/22/19 13:50 - EKG Initial EKG Interpretation: Sinus Rhythm - Initial EKG demonstrates a normal sinus rhythm at a rate of 84. No significant changes from prior dated 25 May 2019 - Medical Decision Making Patient is EKG is normal. Chest x-ray shows chronic changes. Patient is asymptomatic and here in the department when she has been resting. Her creatinine is 6 and she is due for dialysis tomorrow morning. Troponin is elevated but is most likely due to the end-stage renal disease. I spoke with Dr. Huang. We will increase her Imdur to 90 as she comes in hypotensive. On dialysis today she may stick with 60 because she typically has lower than normal blood pressures those days. Patient return if worsening or concerns. ED Disposition - Plan for ED Patient: Disposition: Home or Assisted Living Diagnosis: Chest pain, Chronic kidney disease on chronic dialysis, CAD in [place] artery Prescriptions: Isosorbide Mononitrate [Imdur] 90 mg PO BID #60 tab Prescription Printed Referrals: Freddie Huang MD [STAFF PHYSICIAN] - Additional Instructions: Increase your Imdur to 90 mg twice a day. Because of low blood pressure on dialysis days it may be advisable to stick with the 60 on those days.
[2019-09-22 14:46] LABS: Absolute Lymphocyte Count 1.74 X10^3/uL (0.83-4.51); Absolute Neutrophil Count 4.7 X10^3/uL (2.0-7.7); Basophil# 0.03 X10^3/uL; Basophil% 0.4 % (0-1); Eosinophil# 0.15 X10^3/uL; Hematocrit 38.5 % (37-47); Hemoglobin 12.1 g/dL (12.0-15.0); Lymphocyte # 1.74 X10^3/ul (4.0); Lymphocyte % 23.8 % (19-41); Mean Corp Hgb Conc 31.4 g/dL (32-36); Mean Corpuscular Hgb 31.8 pg (27.0-32.0); Mean Corpuscular Volume 101.3 fL (81-99); Mean Platelet Vol. 10.6 fl (6.2-12.0); Monocyte# 0.68 X10^3/uL; Monocyte% 9.3 % (0-10); NRBC Flagged by Analyzer 0 % (0-5); Neutrophil # 4.69 X10^3/uL (2.7-7.7); Neutrophil % 64.1 % (47-70); Platelet Count 299 K/mm3 (150-450); RBC Distribution Width CV 15.2 % (11.6-14.6); RBC Distribution Width SD 57.2 fl (35.1-43.9); White Blood Count 7.3 K/mm3 (4.4-11.0)
[2019-09-22 14:51] LABS: International Normalized Ratio 1.1; Prothrombin Time (Protime)PT. 13.6 SECONDS (11.7-14.9)
[2019-09-22 14:52] LABS: Partial Thromboplast Time 30.1 Seconds (24.1-36.2)
--- NOTE | 2019-09-22 15:00 | RAD_ITS ---
STUDY: X-RAY CHEST REASON FOR EXAM: Female, 59 years old. CHEST PAIN TECHNIQUE: Single AP portable view of the chest. COMPARISON: Comparison is made with prior examination of May 24, 2019. FINDINGS: Mild degree of vascular congestion. There is no demonstrated pleural abnormality. Sternal cerclage wires and vascular clips are present from a prior sternotomy and coronary artery bypass graft procedure (CABG). Moderate cardiac enlargement. Normal mediastinum and branden. Normal visualized pulmonary arteries. There is atherosclerotic calcification of the aortic arch with tortuosity. Normal visualized thoracic spine. Normal visualized ribs, clavicles, and shoulders. There is no demonstrated abnormality of the visualized soft tissue structures of the upper abdomen. RAD/Chest 1 View (Portable) IMPRESSION: Cardiomegaly and mild degree of vascular congestion. Electronically Signed: Saman Acevedo, at 15:22 EDT , Service support ,
[2019-09-22 15:01] LABS: Anion Gap 13 (5-15); BUN 89 mg/dL (7-18); BUN/Creat Ratio 13.7 RATIO (10-20); Calcium,Total 9.3 mg/dL (8.5-10.1); Chloride 97 mmol/L (98-107); Creatinine, Serum 6.51 mg/dL (0.55-1.02); EST Glomerular Filtration Rate 7 mL/min (>60); Est Glom Filt Rate - Afr Amer 8 mL/min (>60); Glucose 273 mg/dL (74-106); Magnesium 2.4 mg/dL (1.6-2.6); Potassium 5.4 mmol/L (3.5-5.1); Sodium Level 139 mmol/L (136-145)
[2019-09-22 15:10] VITALS: BP 132/72; PULSE 72; RESP 20; O2SAT 100
[2019-09-22] MEDS: Isosorbide Mononitrate 60 MG Tablet 90 MG PO (15:18)
[2019-09-22 16:39] VITALS: BP 147/74; PULSE 73; RESP 16; O2SAT 99
== END 2019-09-22 16:35 | disposition home or self-care (01) ==
PROVIDERS: Emergency Provider Emergency Medicine; PCP Family Medicine Geriatric Medicine
DX: R07.9 Chest pain, unspecified (principal); N18.6 End stage renal disease; I25.10 Atherosclerotic heart disease of native coronary artery without angina pectoris; Z99.2 Dependence on renal dialysis; Z87.891 Personal history of nicotine dependence; Z95.1 Presence of aortocoronary bypass graft; Z79.82 Long term (current) use of aspirin
CPT/HCPCS: 71045; 80048; 83735; 84484; 85025; 85610; 85730; 93005; 99285; A4216

== ENCOUNTER → 2019-10-06 | Outpatient (CLI) | payer MEDICARE, MEDICAID, SELFPAY ==
[2019-06-04 11:27] VITALS: BMI 37.3
[2019-09-22 13:46] VITALS: BMI 40.3
[2019-10-06 16:58] LABS: Absolute Neutrophil Count 3.2 X10^3/uL (2.0-7.7); Basophil# 0.04 X10^3/uL; Basophil% 0.7 % (0-1); Eosinophil# 0.19 X10^3/uL; Eosinophils% 3.5 % (0-5); Hematocrit 37.4 % (37-47); Hemoglobin 11.4 g/dL (12.0-15.0); Lymphocyte % 25.6 % (19-41); Mean Corp Hgb Conc 30.5 g/dL (32-36); Mean Corpuscular Hgb 31.8 pg (27.0-32.0); Mean Corpuscular Volume 104.2 fL (81-99); Mean Platelet Vol. 10.2 fl (6.2-12.0); NRBC Flagged by Analyzer 0 % (0-5); Neutrophil # 3.21 X10^3/uL (2.7-7.7); Neutrophil % 58.8 % (47-70); Platelet Count 269 K/mm3 (150-450); RBC Distribution Width CV 15.3 % (11.6-14.6); RBC Distribution Width SD 58.8 fl (35.1-43.9); Red Blood Count 3.59 M/mm3 (4.2-5.4); White Blood Count 5.5 K/mm3 (4.4-11.0)
[2019-10-06 17:39] LABS: ALB/GLOB Ratio 0.8 RATIO (0.9-2.4); AST(SGOT) 11 U/L (15-37); Alanine Aminotransfer ALT/SGPT 20 U/L (13-56); Albumin, Serum 3.5 g/dL (3.2-5.0); Alkaline Phosphatase 91 U/L (45-117); Anion Gap 9 (5-15); BUN 70 mg/dL (7-18); Calcium,Total 9.4 mg/dL (8.5-10.1); Chloride 97 mmol/L (98-107); EST Glomerular Filtration Rate 6 mL/min (>60); Est Glom Filt Rate - Afr Amer 7 mL/min (>60); Globulin 4.2 g/dL (2.2-4.2); Glucose 237 mg/dL (74-106); Potassium 5.6 mmol/L (3.5-5.1); Protein, Total 7.7 g/dL (6.4-8.2); Sodium Level 136 mmol/L (136-145); Thyroid Stim Hormone (TSH) 0.41 uIU/mL (0.358-3.74)
[2019-10-06 17:44] LABS: Vitamin D,25 Hydroxy 32.5 ng/mL
[2019-10-06 19:49] LABS: Creatinine, Serum 7.74 mg/dL (0.55-1.02)
== END | disposition home or self-care (01) ==
LOC: POLAB3 16:36
PROVIDERS: PCP Family Medicine Geriatric Medicine; Visit Provider Family Medicine Geriatric Medicine
DX: E11.9 Type 2 diabetes mellitus without complications (principal); E55.9 Vitamin D deficiency, unspecified; I10 Essential (primary) hypertension
CPT/HCPCS: 36415; 80053; 82306; 84443; 85025

== ENCOUNTER → 2019-10-10 14:08 | Outpatient (CLI) | payer MEDICARE, MEDICAID, SELFPAY ==
[2019-06-04 11:27] VITALS: BMI 37.3
[2019-09-22 13:46] VITALS: BMI 40.3
[2019-10-10 15:17] LABS: AST(SGOT) 12 U/L (15-37); Alanine Aminotransfer ALT/SGPT 20 U/L (13-56); Albumin, Serum 3.3 g/dL (3.2-5.0); Alkaline Phosphatase 91 U/L (45-117); Bilirubin, Direct 0.16 mg/dL (0.00-0.30); Cholesterol 181 mg/dL (200); Globulin 4.2 g/dL (2.2-4.2); High Density Lipoprotein 73 mg/dL; Protein, Total 7.5 g/dL (6.4-8.2); Triglycerides 124 mg/dL; Very Low Density Lipoprotein 25 mg/dL (5-40)
[2019-10-10 15:23] LABS: Anion Gap 11 (5-15); BUN 46 mg/dL (7-18); BUN/Creat Ratio 7.9 RATIO (10-20); Calcium,Total 9.5 mg/dL (8.5-10.1); Chloride 97 mmol/L (98-107); Creatinine, Serum 5.83 mg/dL (0.55-1.02); EST Glomerular Filtration Rate 8 mL/min (>60); Est Glom Filt Rate - Afr Amer 10 mL/min (>60); Glucose 178 mg/dL (74-106); Potassium 4.1 mmol/L (3.5-5.1); Sodium Level 138 mmol/L (136-145)
== END ==
PROVIDERS: Internal Medicine Cardiovascular Disease; PCP Family Medicine Geriatric Medicine; Referring Provider Family Medicine Geriatric Medicine; Visit Provider Family Medicine Geriatric Medicine
DX: I10 Essential (primary) hypertension (principal); I25.10 Atherosclerotic heart disease of native coronary artery without angina pectoris; E78.5 Hyperlipidemia, unspecified
CPT/HCPCS: 36415; 80048; 80061; 80076

== ENCOUNTER 2019-10-27 17:33 | Observation (INO) | payer MEDICARE, MEDICAID, SELFPAY ==
[2019-06-04 11:27] VITALS: BMI 37.3
[2019-10-27 17:35] VITALS: BP 140/57; PULSE 79; RESP 18; TEMP 37; O2SAT 100; BMI 39.0
--- NOTE | 2019-10-27 18:03 | CT_ITS ---
STUDY: CT ABDOMEN AND PELVIS WITHOUT CONTRAST REASON FOR EXAM: Female, 59 years old. Abdominal pain with nausea and vomiting every day for 2 weeks. Shortness of breath. History of hypertension hyperlipidemia and diabetes. Patient on dialysis. RADIATION DOSAGE (If Supplied By Facility): CTDIvol = ( 21.68 ) mGy, DLP = ( 1012.78 ) mGycm TECHNIQUE: Transaxial images were obtained from the dome of the diaphragm to the symphysis pubis without oral contrast, and without intravenous contrast. Sagittal and coronal images were reconstructed. Individualized dose optimization techniques were used for this CT. COMPARISON: April 06, 2017 FINDINGS: The visualized lung bases are unremarkable. Evidence of prior CABG procedure. Normal liver. Multiple small layering gallstones without evidence for acute cholecystitis or biliary ductal dilatation. Normal spleen. Normal pancreas. Normal bilateral adrenal glands. Small right kidney. There are vascular calcifications and hilum. There is no hydronephrosis. Normal visualized right ureter. There is a exophytic cyst off the mid portion of the small left kidney. Vascular calcifications are seen in the hilum. There is no hydronephrosis. Normal visualized left ureter. Normal visualized stomach. Normal small intestine. Normal colon. The appendix is visualized and appears normal. There is diffuse atherosclerotic calcification of the abdominal aorta, without a demonstrated aneurysm. There is diffuse vascular calcifications throughout the abdomen and pelvis. Normal inferior vena cava. Normal retroperitoneum. The urinary bladder is incompletely distended but grossly normal. Normal vaginal cuff. There are multiple phleboliths in the pelvis without lymphadenopathy. No free air or free fluid is seen within the abdominal cavity. Normal abdominal wall. There are diffuse degenerative changes of the visualized lumbar spine. CT/Abdomen/Pelvis without Cont IMPRESSION: No acute and/or abdominal or pelvic processes. There is no major interval change when compared to April 06, 2017. Electronically Signed: Deion Sheridan DO at 19:04 EDT Tel [phone], Service support ,
--- NOTE | 2019-10-27 18:03 | EKG12_ITS ---
Test Reason : CHEST PAIN Blood Pressure : / mmHG Vent. Rate : 085 BPM Atrial Rate : 085 BPM P-R Int : 160 ms QRS Dur : 092 ms QT Int : 416 ms P-R-T Axes : 062 -55 150 degrees QTc Int : 495 ms Normal sinus rhythm Possible Left atrial enlargement Left axis deviation Left ventricular hypertrophy Prolonged QT ST/T wave abnormality: Consider Myocardial ischemia Abnormal ECG Confirmed by KELVIN ZARAGOZA, JOCELYNE ([id number]), photographic editor JEWELS POLLACK ([id number]) on 10/29/2019 10:14:50 AM Referred By: SADIA Confirmed By:JOCELYNE WARREN MD
--- NOTE | 2019-10-27 18:10 | ED.DCSUM_ITS ---
- ER Visit Summary Date of Service: 10/27/19 Chief Complaint: Nausea, vomiting, chest pain, and shortness of breath History of Present Illness: The patient is a 59 F who presents with nausea, vomiting, chest pain, shortness of breath that has been intermittent over the past 2 weeks. Patient states that when this comes on it last for several hours. Patient describes her pain as a pressure. Patient states the pain is over the epigastric and substernal areas. Patient states her pain is worse when she lays flat. Patient denies any fevers or chills. Patient denies any hematemesis or coffee-ground emesis. Patient denies any diarrhea, melena, or hematochezia. Physical Examination: Vital signs are stable. Patient is afebrile. Patient is in no acute distress. Oral mucosa is pink and moist. Neck is supple. Trachea is midline. There is no JVD. Heart was regular rate and rhythm. Lungs are clear and equal bilaterally. Abdomen is soft. Bowel sounds are normal. There is tenderness over the upper abdomen. There is no rebound or guarding noted. Cranial nerves II through XII are intact. There are no focal motor or sensory deficits noted. Extremities are intact. There is no calf tenderness or edema. Test Results: EKG showed normal sinus rhythm with nonspecific ST-T wave changes. This was unchanged compared to previous EKG. CBC was within normal limits. Comprehensive metabolic profile showed an elevated creatinine of 7.13 and an elevated BUN of 52. Patient is on dialysis. Troponin was elevated at 1.23. Chest x-ray was obtained. There is no acute cardiopulmonary process. CT scan of the abdomen pelvis was obtained. There is no acute intra-abdominal process. This was interpreted by the radiologist and myself. Emergency Department Course and Treatment: Patient was given Zofran and morphine initially. Patient was given aspirin and nitroglycerin paste. Patient was feeling better on reevaluation. Case was discussed with the hospitalist. He recommended that I call cardiology. I discussed the case with Dr. Wakefield. He does not have any further recommendations at this time. Patient will be admitted to the hospital. Patient understands and is agreeable with the plan. All questions were answered. Disposition: Admit to hospital Impression: 1. Non-STEMI This note was generated with Lenet[employer] software. It may contain incorrect words, spelling, and punctuation that were not noted in review of the chart prior to signing ED Disposition - Plan for ED Patient: Disposition: Acute Care Hospital [facility]
[2019-10-27 18:24] LABS: Absolute Lymphocyte Count 1.47 X10^3/uL (0.83-4.51); Absolute Neutrophil Count 4.3 X10^3/uL (2.0-7.7); Basophil# 0.05 X10^3/uL; Basophil% 0.8 % (0-1); Eosinophil# 0.18 X10^3/uL; Eosinophils% 2.8 % (0-5); Hematocrit 38.7 % (37-47); Hemoglobin 11.9 g/dL (12.0-15.0); Lymphocyte # 1.47 X10^3/ul (4.0); Lymphocyte % 22.7 % (19-41); Mean Corp Hgb Conc 30.7 g/dL (32-36); Mean Corpuscular Hgb 31.5 pg (27.0-32.0); Mean Corpuscular Volume 102.4 fL (81-99); Mean Platelet Vol. 10.4 fl (6.2-12.0); Monocyte# 0.46 X10^3/uL; Monocyte% 7.1 % (0-10); NRBC Flagged by Analyzer 0 % (0-5); Neutrophil % 66.1 % (47-70); Platelet Count 328 K/mm3 (150-450); RBC Distribution Width CV 14.4 % (11.6-14.6); RBC Distribution Width SD 54.5 fl (35.1-43.9); Red Blood Count 3.78 M/mm3 (4.2-5.4); White Blood Count 6.5 K/mm3 (4.4-11.0)
[2019-10-27] MEDS: Ondansetron 4 MG/2 ML Vial IV (18:30)
[2019-10-27] MEDS: Morphine 4 MG/ML Syringe IV (18:30)
--- NOTE | 2019-10-27 18:35 | RAD_ITS ---
STUDY: X-RAY CHEST REASON FOR EXAM: Female, 59 years old. Shortness of breath and chest pain for 2 weeks. TECHNIQUE: Single AP portable view of the chest. COMPARISON: September 22, 2019. FINDINGS: The lungs are clear and expanded. There is no demonstrated pleural abnormality. Sternal cerclage wires are present from a prior sternotomy. Normal mediastinum and branden. Normal visualized pulmonary arteries. There is atherosclerotic calcification of the aortic arch with tortuosity. No visualized osseous changes. There is no demonstrated abnormality of the visualized soft tissue structures of the upper abdomen. RAD/Chest 1 View (Portable) IMPRESSION: No acute cardiopulmonary disease. Electronically Signed: Deion Sheridan DO at 18:58 EDT Tel [phone], Service support ,
[2019-10-27 19:09] LABS: ALB/GLOB Ratio 0.9 RATIO (0.9-2.4); AST(SGOT) 25 U/L (15-37); Alanine Aminotransfer ALT/SGPT 21 U/L (13-56); Albumin, Serum 3.5 g/dL (3.2-5.0); Alkaline Phosphatase 88 U/L (45-117); Anion Gap 8 (5-15); BUN 52 mg/dL (7-18); BUN/Creat Ratio 7.3 RATIO (10-20); Calcium,Total 9.6 mg/dL (8.5-10.1); Chloride 100 mmol/L (98-107); Creatinine, Serum 7.13 mg/dL (0.55-1.02); EST Glomerular Filtration Rate 6 mL/min (>60); Est Glom Filt Rate - Afr Amer 8 mL/min (>60); Estimated Creatinine Clearance 6.03 ml/min; Globulin 4.1 g/dL (2.2-4.2); Glucose 244 mg/dL (74-106); Lipase 247 U/L (73-393); Potassium 4.7 mmol/L (3.5-5.1); Protein, Total 7.6 g/dL (6.4-8.2); Sodium Level 137 mmol/L (136-145)
[2019-10-27 20:03] VITALS: BP 160/64; PULSE 78
[2019-10-27] MEDS: Nitroglycerin Oint 1 INCH PACKET TRANSDERM. (20:03)
[2019-10-27] MEDS: Aspirin 81 MG TAB.CHEW 324 MG PO (20:06)
--- NOTE | 2019-10-27 20:23 | HP.PCM_ITS ---
Problem List (1) History of left heart catheterization Status: Resolved Comment: Triple vessel CAD of the LM, LAD and LCX; Widely patent stents in RCA/PDA. Widely patent SVG to OM; Widely patent KINCAID to LAD with 40% distal [place] LAD disease, not appreciably changed from cath in 12/2018. Global LV systolic dysfunction- Severe. Per LHC done @ [facility] per [facility] LVEF: by LV gram 20-25 % Depressed Left Ventricular systolic function - Severe Elevated Left Ventricular End Diastolic Pressure (2) Chronic kidney disease with end stage renal failure on dialysis Status: Chronic (3) CAD in [place] artery Status: Chronic (4) Chronic kidney disease on chronic dialysis Status: Chronic (5) GERD (gastroesophageal reflux disease) Status: Chronic (6) Diabetic retinopathy Status: Chronic (7) DDD (degenerative disc disease) Status: Chronic (8) Anemia in chronic renal disease Status: Chronic (9) History of non-ST elevation myocardial infarction (NSTEMI) Status: Chronic (10) Secondary pulmonary arterial hypertension Status: Chronic (11) Chronic diastolic (congestive) heart failure Status: Chronic (12) Morbid obesity Status: Chronic (13) Diabetes mellitus type 2 in obese Status: Chronic (14) Hypertension Status: Chronic Qualifiers: (15) HLD (hyperlipidemia) Status: Chronic Qualifiers: (16) COPD (chronic obstructive pulmonary disease) Status: Chronic Qualifiers: (17) CLAUDIO (obstructive sleep apnea) Status: Chronic Comment: 17/11 cmH2O (18) Secondary hyperparathyroidism of renal origin Status: Chronic (19) Chest pain Status: Acute History of Present Illness Date of Admission: 10/27/19 Chief Complaint: chest pain The patient is a 59 year old female patient past medical history of end-stage renal disease on dialysis, coronary artery disease status post stenting presents to the emergency room with chest pain along with shortness of breath and nausea and vomiting. She states she has been having chest pain ongoing for the past 2 weeks however this morning the pain became worse and she was nauseous and started vomiting. She is currently chest pain-free in the emergency room after receiving medication and is no longer nauseated after receiving Zofran. Initial troponin is 1.2 and her last dialysis was on Sunday. Due to her extensive history and multiple risk factors patient will be admitted for observation to the progressive care unit along with cardiac consult. Past Medical History Past Medical History (Chronic Problems): Chronic Problems (Last Reviewed 09/22/19 @ 08:38 by Anel Cesar) Chronic kidney disease with end stage renal failure on dialysis (Chronic) CAD in [place] artery (Chronic) Chronic kidney disease on chronic dialysis (Chronic) Glaucoma (Chronic) GERD (gastroesophageal reflux disease) (Chronic) Diabetic retinopathy (Chronic) DDD (degenerative disc disease) (Chronic) Anemia in chronic renal disease (Chronic) History of non-ST elevation myocardial infarction (NSTEMI) (Chronic) Nonrheumatic mitral (valve) insufficiency (Chronic) Secondary pulmonary arterial hypertension (Chronic) Chronic diastolic (congestive) heart failure (Chronic) 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) CABG x3- KINCAID-LAD, SVG-CX, SVG-RCA 06/25/14 @ [facility] Morbid obesity (Chronic) Diabetes mellitus type 2 in obese (Chronic) End-stage renal disease on hemodialysis (Chronic) Hypertension (Chronic) HLD (hyperlipidemia) (Chronic) COPD (chronic obstructive pulmonary disease) (Chronic) CLAUDIO (obstructive sleep apnea) (Chronic) 17/11 cmH2O Secondary hyperparathyroidism of renal origin (Chronic) Medical History: Medical History (Last Reviewed 09/22/19 @ 08:38 by Anel Cesar) Glaucoma (Chronic) H40.9 GERD (gastroesophageal reflux disease) (Chronic) K21.9 Diabetic retinopathy (Chronic) E11.319 DDD (degenerative disc disease) (Chronic) Anemia in chronic renal disease (Chronic) N18.9, D63.1 History of non-ST elevation myocardial infarction (NSTEMI) (Chronic) I25.2 Nonrheumatic mitral (valve) insufficiency (Chronic) I34.0 Secondary pulmonary arterial hypertension (Chronic) I27.21 Chronic diastolic (congestive) heart failure (Chronic) I50.32 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) I25.728 CABG x3- KINCAID-LAD, SVG-CX, SVG-RCA 06/25/14 @ [facility] Diabetes mellitus type 2 in obese (Chronic) E11.9, E66.9 End-stage renal disease on hemodialysis (Chronic) N18.6, Z99.2 Hypertension (Chronic) I10 HLD (hyperlipidemia) (Chronic) E78.5 COPD (chronic obstructive pulmonary disease) (Chronic) J44.9 CLAUDIO (obstructive sleep apnea) (Chronic) G47.33 17/11 cmH2O Secondary hyperparathyroidism of renal origin (Chronic) N25.81 Arteriovenous fistula stenosis (Inactive) T82.858A Allergies lisinopril Allergy (Verified 10/27/19 17:35) Unknown ranitidine HCl [From Zantac] Allergy (Verified 10/27/19 17:35) Hives azithromycin Adverse Reaction (Verified 10/27/19 17:35) Nausea/Vom/Diarrhea Home Medications: Ambulatory Orders Medication Instructions Recorded Gabapentin [Neurontin] 300 mg PO QHS 06/07/17 Sennosides [Senna] 8.6 mg PO QHS PRN 06/07/17 ergocalciferol (vitamin D2) 1,250 50,000 unit PO QMONTH cap 08/01/17 mcg (50,000 unit) capsule Citalopram Hydrobromide 20 mg PO DAILY 11/15/18 [Citalopram HBr] Timolol 0.5% [Timoptic] 1 drp RIGHT EYE BID 11/15/18 aspirin 81 mg chewable tablet 81 mg PO DAILY@0800 #90 tab 03/06/19 albuterol sulfate 90 mcg/actuation 1 puff INHALATION Q6H PRN PRN #1 04/14/19 aerosol inhaler inhaler Atorvastatin Calcium 80 mg PO QHS 05/24/19 Clopidogrel Bisulfate [Clopidogrel] 75 mg PO DAILY 05/24/19 Isosorbide Mononitrate [Isosorbide 60 mg PO BID 05/24/19 Mononitrate ER] Calcium Acetate 2 cap PO TIDCM 05/25/19 B complex with C 20-folic acid 1 1 cap PO DAILY 06/09/19 mg capsule Insulin Glargine,Hum.rec.anlog 26 unit SQ QHS 09/22/19 [Basaglar Kwikpen U-100] Isosorbide Mononitrate [Imdur] 90 mg PO BID #60 tab 09/22/19 carvedilol 12.5 mg tablet 12.5 mg PO BID 09/22/19 nitroglycerin 0.4 mg sublingual 0.4 mg SUBLINGUAL Q5-15M PRN #25 09/22/19 tablet tab Surgical History: Surgical History (Last Reviewed 09/22/19 @ 08:38 by Anel Cesar) History of left heart catheterization (Resolved) Onset Date: 05/26/19 Z98.890 Triple vessel CAD of the LM, LAD and LCX; Widely patent stents in RCA/PDA. Widely patent SVG to OM; Widely patent KINCAID to LAD with 40% distal [place] LAD disease, not appreciably changed from cath in 12/2018. Global LV systolic dysfunction- Severe. Per LHC done @ [facility] per [facility] LVEF: by LV gram 20-25 % Depressed Left Ventricular systolic function - Severe Elevated Left Ventricular End Diastolic Pressure Aortocoronary bypass status (Inactive) Onset Date: 06/25/14 Z95.1 CABG x3- KINCAID-LAD, SVG-CX, SVG-RCA 06/25/14 @ [facility] History of cataract surgery (Inactive) Z98.49 History of hysterectomy (Inactive) Z90.710 Postsurgical percutaneous transluminal coronary angioplasty (PTCA) status (Inactive) Onset Date: 02/18/19 Z98.61 06/12/2017:Triple vessel CAD of the LM, LCX, LAD; Persistent distal anastamotic lesion from SVG to OM#2; Possibly signifcant ischemia in DIAG branch downstream from critical LM lesion. Successful PCI with PTCA to the DISTAL ANASTOMOTIC SITE OF SVG TO OM WITH 1.5, THEN 2.0 BALLOON; 85%-->10%, NO DISSECTION OR PERFORATION. No additional stenting performed out of concern for restricting retrograde blood flow to [place] AV LCX, as well as lack of anginal symptoms during prolonged balloon inflation. Culprit artery may be [place] DIAG#1 due to LM disease, but to correct LM disease may jeopardize patent KINCAID. 02/18/2019:Triple vessel CAD of the LAD, LCX, RCA; Widely patent KINCAID to LAD; Widely patent SVG to OM with well healed distal SVG anastomitic site from previous PCI/POBA. Successful PTCA/MIGUEL distal RCA with a 2.25 x 16 Promus Synergy, 75%-->0%, no dissection. Pt had identical chest pressure during stent deployment. Successful PTCA/MIGUEL Proximal RCA with a 2.5 x 20 Promus Synergy, post dilated throughout with a 2.5 x 8 NC Balloon; 75%-->0%, no dissection. 02/20/2019:Successful PTCA/MIGUEL distal RCA with a 2.25 x 16 Promus Synergy stent at 8ATM, then inflated to 12 [place] in proximal stent to insure proper appoistion with previously placed distal RCA stent. Successful PCI with PTCA to the proximal/ostial RCA to insure that no recently placed stent struts were crimped during this procedure. Not a true STEMI; Pt had ACS with recent stenting 2 days ago with dynamic ECG changes without overt ST Elevation. angioplasty of artriovenous fistula (Inactive) Surgical History: angioplasty, cataract, coronary bypass surgery - CABG x 3., hysterectomy, - - AVF placement, back surgery. 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 history Smoking Status: Former smoker - *Family History Paternal Family History: Family History (Last Reviewed 09/22/19 @ 08:38 by Anel Cesar) Father Heart disease Hypertension Prostate cancer Mother Hypertension History Items: Cancer - prostate, Heart Disease, Hypertension Sibling Family History: Family History (Last Reviewed 09/22/19 @ 08:38 by Anel Cesar) Father Heart disease Hypertension Prostate cancer Mother Hypertension History Items: Diabetes Maternal Family History: Family History (Last Reviewed 09/22/19 @ 08:38 by Anel Cesar) Father Heart disease Hypertension Prostate cancer Mother Hypertension History Items: Hypertension Review of Systems Constitutional: Denies: Chills, Fever, Weight Change HEENT: Denies: Head Aches, Sinus Congestion, Sinus Drainage Cardiovascular: Reports: Chest Pain. Denies: Palpitations Respiratory: Reports: Shortness of breath at rest. Denies: Cough, Sputum production Gastrointestinal: Reports: Nausea, Vomiting. Denies: Abdominal Pain Genitourinary: Denies: Dysuria Musculoskeletal: Denies: Joint Pain, Joint Tenderness Skin: Denies: Rash, Wounds Neurological: Denies: Numbness, Tingling, Focal weakness Psychiatric: Denies: Anxiety, Depression, Homicidal Ideations, Suicidal Ideations Hematologic/ Lymphatic: Denies: Easy Bruising, Easy Bleeding VTE Information - Inpt Only VTE Present on Admission: No VTE Mechan Device Prophylaxis: SCD's VTE Pharm Prophylaxis ordered?: No Patient Problems: Active and Suspected Problems (Last Reviewed 09/22/19 @ 08:38 by Anel Cesar) Chest pain (Acute) - Physical Exam Vitals/I&O's: Vital Signs Temp Pulse Resp BP Pulse Ox 98.6 F 78 18 160/64 H 100 10/27/19 17:35 10/27/19 20:03 10/27/19 17:35 10/27/19 20:03 10/27/19 17:35 Oxygen Delivery Method Room Air Weight: 200 lb Body Mass Index (BMI) 39.0 Finger Stick Blood Glucose 275 General: Alert, Oriented x3, Cooperative HEENT: Atraumatic, Normocephalic Neck: Supple Lungs: Clear to auscultation, Normal air movement, No rhonchi, No wheeze, No rales Cardiovascular: Regular rate, Normal S1, Normal S2, No murmurs Abdomen: Bowel Sounds Present, Soft, Non Tender, Obese Extremities: No edema Skin: No rashes Musculoskeletal: No Tenderness to Palpation of Joints or Extremities Neurological: Neuro grossly intact Psych/Mental Status: Normal Affect, Appropriate Laboratory Results 10/27/19 17:55: WBC 6.5, RBC 3.78 L, Hgb 11.9 L, Hct 38.7, MCV 102.4 H, MCH 31.5, MCHC 30.7 L, RDW Std Deviation 54.5 H, RDW Coeff of Lauren 14.4, Plt Count 328, MPV 10.4, Immature Gran % (Auto) 0.500, Neut % (Auto) 66.1, Lymph % (Auto) 22.7, [place] % (Auto) 7.1, Eos % (Auto) 2.8, Baso % (Auto) 0.8, Absolute Neuts (auto) 4.3, Absolute Lymphs (auto) 1.47, Nucleated RBC % 0 10/27/19 17:55: Sodium 137, Potassium 4.7, Chloride 100, Carbon Dioxide 29.0, Anion Gap 8, BUN 52 H, Creatinine 7.13 H, Estim Creat Clear Calc 6.03, Est GFR (MDRD) Af Amer 8 L, Est GFR (MDRD) Non-Af 6 L, BUN/Creatinine Ratio 7.3 L, Glucose 244 H, Calcium 9.6, Total Bilirubin 0.40, AST 25, ALT 21, Alkaline Phosphatase 88, Troponin I 1.230 H*, Total Protein 7.6, Albumin 3.5, Globulin 4.1, Albumin/Globulin Ratio 0.9, Lipase 247 Assessment/Plan All Active Problems (Last Reviewed 09/22/19 @ 08:38 by Anel Cesar) Chest pain (Acute) History of left heart catheterization (Resolved 05/26/19) Unstable angina (Acute) Chronic Problems (Last Reviewed 09/22/19 @ 08:38 by Anel Cesar) Chronic kidney disease with end stage renal failure on dialysis (Chronic) CAD in [place] artery (Chronic) Chronic kidney disease on chronic dialysis (Chronic) Glaucoma (Chronic) GERD (gastroesophageal reflux disease) (Chronic) Diabetic retinopathy (Chronic) DDD (degenerative disc disease) (Chronic) Anemia in chronic renal disease (Chronic) History of non-ST elevation myocardial infarction (NSTEMI) (Chronic) Nonrheumatic mitral (valve) insufficiency (Chronic) Secondary pulmonary arterial hypertension (Chronic) Chronic diastolic (congestive) heart failure (Chronic) 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 Chest pain/elevated troponin/N STEMI?admit patient to progressive care unit for observation, cycle cardiac enzymes, make patient n.p.o. at midnight, consult cardiology in the morning. We will add morphine nitroglycerin and aspirin per routine protocol 2. End-stage renal disease patient is on dialysis and is scheduled for dialysis on Sunday 3. Diabetes?continue home medications 4. Hypertension?managed continue current home medications 5. Hyperlipidemia?continue statin 6. DVT prophylaxis?SCDs OBSV E&M: [id number] Initial observation care L2
[2019-10-27 21:13] VITALS: BP 135/86; PULSE 77; RESP 17; TEMP 37; O2SAT 95
--- NOTE | 2019-10-27 21:36 | NURSING ---
Pt unsure of when last PNA shot was.
[2019-10-27 21:37] VITALS: BMI 39.2
[2019-10-27 21:39] VITALS: BMI 39.2
[2019-10-27 21:52] VITALS: BP 142/70; PULSE 73; RESP 20; TEMP 36.8; O2SAT 100
--- NOTE | 2019-10-27 22:00 | EKG12_ITS ---
Test Reason : ADMISSION EKG Blood Pressure : / mmHG Vent. Rate : 072 BPM Atrial Rate : 072 BPM P-R Int : 170 ms QRS Dur : 084 ms QT Int : 440 ms P-R-T Axes : 057 -49 153 degrees QTc Int : 481 ms Normal sinus rhythm Left anterior fascicular block Left ventricular hypertrophy Prolonged QT Septal [place], age undetermined ST/T wave abnormality: consider myocardial ischemia Abnormal ECG Confirmed by KELVIN ZARAGOZA, JOCELYNE ([id number]), magazine editor JEWELS POLLACK ([id number]) on 10/29/2019 10:30:00 AM Referred By: DR LUTHER Confirmed By:JOCELYNE WARREN MD
[2019-10-27 22:08] VITALS: O2SAT 95
[2019-10-27] MEDS: Carvedilol 12.5 MG Tablet PO (23:04)
[2019-10-27] MEDS: Gabapentin 300 MG Capsule PO (23:04)
[2019-10-27] MEDS: Atorvastatin Calcium 80 MG Tablet PO (23:04)
[2019-10-27] MEDS: Timolol 0.5% 5ML OPTH.BTL 1 DRP RIGHT EYE (23:06)
[2019-10-27] MEDS: Isosorbide Mononitrate 60 MG Tablet PO (23:31)
[2019-10-27 23:51] VITALS: PULSE 68
[2019-10-28] VITALS (19 sets, daily range): BP systolic 64–116; BP diastolic 34–62; PULSE 57–72; RESP 12–22; TEMP 36.3–37.1; O2SAT 93–100; BMI 39.2
[2019-10-28 00:46] LABS: Bedside Glucose 177 mg/dL (70-110)
[2019-10-28 03:35] LABS: Absolute Lymphocyte Count 1.56 X10^3/uL (0.83-4.51); Absolute Neutrophil Count 3.8 X10^3/uL (2.0-7.7); Basophil# 0.04 X10^3/uL; Basophil% 0.6 % (0-1); Eosinophil# 0.19 X10^3/uL; Hematocrit 32.7 % (37-47); Lymphocyte # 1.56 X10^3/ul (4.0); Lymphocyte % 24.8 % (19-41); Mean Corp Hgb Conc 30.6 g/dL (32-36); Mean Corpuscular Hgb 31.8 pg (27.0-32.0); Mean Corpuscular Volume 104.1 fL (81-99); Mean Platelet Vol. 10.2 fl (6.2-12.0); Monocyte# 0.71 X10^3/uL; Monocyte% 11.3 % (0-10); NRBC Flagged by Analyzer 0 % (0-5); Neutrophil # 3.77 X10^3/uL (2.7-7.7); Neutrophil % 60.1 % (47-70); Platelet Count 237 K/mm3 (150-450); RBC Distribution Width CV 14.7 % (11.6-14.6); RBC Distribution Width SD 55.9 fl (35.1-43.9); Red Blood Count 3.14 M/mm3 (4.2-5.4); White Blood Count 6.3 K/mm3 (4.4-11.0)
[2019-10-28 03:45] LABS: Anion Gap 7 (5-15); BUN 54 mg/dL (7-18); BUN/Creat Ratio 7.3 RATIO (10-20); Calcium,Total 8.7 mg/dL (8.5-10.1); Chloride 98 mmol/L (98-107); Creatinine, Serum 7.39 mg/dL (0.55-1.02); EST Glomerular Filtration Rate 6 mL/min (>60); Est Glom Filt Rate - Afr Amer 7 mL/min (>60); Estimated Creatinine Clearance 5.81 ml/min; Glucose 236 mg/dL (74-106); Potassium 4.4 mmol/L (3.5-5.1); Sodium Level 136 mmol/L (136-145)
[2019-10-28 04:06] LABS: Bedside Glucose 215 mg/dL (70-110)
[2019-10-28] MEDS: 0.9% Saline Lock 10 ML Syringe IV (04:25)
[2019-10-28 06:50] LABS: Bedside Glucose 192 mg/dL (70-110)
--- NOTE | 2019-10-28 09:00 | PCM.CONS.C ---
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 Status: Chronic Comment: CABG x3- KINCAID-LAD, SVG-CX, SVG-RCA 06/25/14 @ [facility] (5) Diabetes mellitus type 2 in obese Status: Chronic (6) Hypertension Status: Chronic Qualifiers: (7) HLD (hyperlipidemia) Status: Chronic Qualifiers: (8) CLAUDIO (obstructive sleep apnea) Status: Chronic Comment: 17/ cmH2O Reason for Consult Date of Consultation: 10/28/19 Reason for Consultation: Chest pain, non-STEMI, coronary disease status post CABG, severe LV dysfunction, hypertension, hypercholesterolemia, diabetes History of Present Illness: The patient is a 59 year old F, very well-known to me, with a history of diabetes, hypertension, hypercholesterolemia, end-stage renal disease currently on hemodialysis, who was in normal health up until around 2 weeks ago when she began developing nausea and vomiting and significant constipation on a daily basis. Most the time her nausea and vomiting would take place in the evening, at which time she would develop some midsternal chest burning, but her vomiting improved those symptoms. In addition the patient complained of significant worsening constipation. Her amlodipine was discontinued although this did not improve her constipation. She has previously known gallstones. Her symptoms worsened yesterday when she had repeated episodes of nausea and vomiting, nonbloody vomitus, with no associated fevers or chills. She sought medical attention at [facility] ER where an EKG was performed showed normal sinus rhythm, LVH with repolarization normalities, and lateral T wave inversion which was previously seen on EKGs. At no time as the patient had any exertional anginal symptoms or angina during dialysis. She has known severe multivessel coronary disease and is status post stenting to RCA. Her most recent catheterization took place at [facility] on 05/26/2019 due to chest pain. The results were as follows: Triple vessel CAD of the LM, LAD and LCX Widely patent stents in RCA/PDA. Widely patent SVG to OM Widely patent KINCAID to LAD with 40% distal [place] LAD disease, not appreciably changed from cath in 12/2018. Global LV systolic dysfunction- Severe LVEF: by LV gram 20-25 % Depressed Left Ventricular systolic function - Severe Elevated Left Ventricular End Diastolic Pressure[ A CT scan was performed yesterday which demonstrated significant multiple gallstones in the dependent area of the gallbladder with what appeared to be dilatation of the gallbladder without evidence of inflammation. CT scan reviewed. Ultrasound of gallbladder pending. In addition the patient has severe LV dysfunction with her most recent echocardiogram taking place on 05/27/2019 with the following results: Mildly dilated left ventricle. The estimated ejection fraction is 25-30 %. Stage 2 diastolic dysfunction. There is moderate to severe global hypokinesis of the left ventricle. Mild (1+) mitral valve insufficiency. Trivial tricuspid valve insufficiency. Unable to estimate RV systolic pressure due to insufficient tricuspid regurgitant envelope. Compared to echo report dated 02/19/2019, LV function is reduced from 45% to around 25 to 30%, and unable to quantitate RVSP on this exam. Patient's initial troponin was 1.2, and is increased to a maximum of 4.4. Her telemetry has been negative overnight. She is currently resting comfortably and chest pain-free. Past Medical History Allergies/Adverse Reactions: Allergies lisinopril Allergy (Verified 10/27/19 17:35) Unknown ranitidine HCl [From Zantac] Allergy (Verified 10/27/19 17:35) Hives azithromycin Adverse Reaction (Verified 10/27/19 17:35) Nausea/Vom/Diarrhea Home Medications: Ambulatory Orders Medication Instructions Recorded Gabapentin [Neurontin] 300 mg PO QHS 06/07/17 Sennosides [Senna] 8.6 mg PO QHS PRN 06/07/17 Citalopram Hydrobromide 30 mg PO DAILY 11/15/18 [Citalopram HBr] Timolol 0.5% [Timoptic] 1 drp RIGHT EYE BID 11/15/18 aspirin 81 mg chewable tablet 81 mg PO DAILY@0800 #90 tab 03/06/19 albuterol sulfate 90 mcg/actuation 1 puff INHALATION Q6H PRN PRN #1 04/14/19 aerosol inhaler inhaler Atorvastatin Calcium 80 mg PO QHS 05/24/19 Clopidogrel Bisulfate [Clopidogrel] 75 mg PO DAILY 05/24/19 Isosorbide Mononitrate [Isosorbide 60 mg PO UD 05/24/19 Mononitrate ER] B complex with C 20-folic acid 1 1 cap PO DAILY 06/09/19 mg capsule Insulin Glargine,Hum.rec.anlog 40 unit SQ DAILY 09/22/19 [Basaglar Kwikpen U-100] Isosorbide Mononitrate [Imdur] 90 mg PO BID #60 tab 09/22/19 carvedilol 12.5 mg tablet 12.5 mg PO BID 09/22/19 nitroglycerin 0.4 mg sublingual 0.4 mg SUBLINGUAL Q5-15M PRN #25 09/22/19 tablet tab Ascorbic Acid [Vitamin C] 500 mg PO DAILY 10/27/19 Cholecalciferol (VIT D3) [Vitamin 1,000 unit PO DAILY 10/27/19 D] Icosapent Ethyl [Vascepa] 1 gm PO TIDCM 10/27/19 Past Medical History (Chronic Problems): Chronic Problems (Last Reviewed 09/22/19 @ 08:38 by Anel Cesar) Chronic kidney disease with end stage renal failure on dialysis (Chronic) CAD in [place] artery (Chronic) Chronic kidney disease on chronic dialysis (Chronic) Glaucoma (Chronic) GERD (gastroesophageal reflux disease) (Chronic) Diabetic retinopathy (Chronic) DDD (degenerative disc disease) (Chronic) Anemia in chronic renal disease (Chronic) History of non-ST elevation myocardial infarction (NSTEMI) (Chronic) Nonrheumatic mitral (valve) insufficiency (Chronic) Secondary pulmonary arterial hypertension (Chronic) Chronic diastolic (congestive) heart failure (Chronic) 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) CABG x3- KINCAID-LAD, SVG-CX, SVG-RCA 06/25/14 @ [facility] Morbid obesity (Chronic) Diabetes mellitus type 2 in obese (Chronic) End-stage renal disease on hemodialysis (Chronic) Hypertension (Chronic) HLD (hyperlipidemia) (Chronic) COPD (chronic obstructive pulmonary disease) (Chronic) CLAUDIO (obstructive sleep apnea) (Chronic) 17/11 cmH2O Secondary hyperparathyroidism of renal origin (Chronic) Surgical History: angioplasty, cataract, coronary bypass surgery - CABG x 3., hysterectomy, - - AVF placement, back surgery. 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 - *Family History Paternal Family History: Family History (Last Reviewed 09/22/19 @ 08:38 by Anel Cesar) Father Heart disease Hypertension Prostate cancer Mother Hypertension History Items: Cancer - prostate, Heart Disease, Hypertension Sibling Family History: Family History (Last Reviewed 09/22/19 @ 08:38 by Anel Cesar) Father Heart disease Hypertension Prostate cancer Mother Hypertension History Items: Diabetes Maternal Family History: Family History (Last Reviewed 09/22/19 @ 08:38 by Anel Cesar) Father Heart disease Hypertension Prostate cancer Mother Hypertension History Items: Hypertension Smoking Status: Former smoker Review of Systems - Review of Systems General: Denies: Fever, Night Sweats, Fatigue Cardiovascular: Denies: Chest Discomfort, Shortness of Breath, Orthopnea, PND, Peripheral Edema, Palpitations, Lightheadedness, Dizziness, Near Syncope, Syncope Respiratory: Denies: Cough, Sputum Production, Hemoptysis Gastrointestinal: Reports: Dyspepsia, Epigastric Discomfort, Abdominal Discomfort, Nausea, Emesis. Denies: Hematemesis, Hematochezia, Melena Genitourinary: Denies: Dysuria, Hematuria Skin: Denies: Rash Subjectve: Patient resting comfortably, no acute distress. Objective: Vital Signs Temp Pulse Resp BP Pulse Ox 97.6 F L 62 12 84/44 L 100 10/28/19 06:37 10/28/19 07:00 10/28/19 06:37 10/28/19 06:37 10/28/19 07:32 Oxygen Flow Rate (L/min) 2 Oxygen Delivery Method Nasal Cannula Weight: 200 lb 13.458 oz Body Mass Index (BMI) 39.2 Finger Stick Blood Glucose 275 Intake and Output for Last 24 Hours 10/26/19 10/27/19 10/28/19 23:59 23:59 23:59 Intake Total 747 / 747 260 / 260 Output Total 0 / 0 0 / 0 Balance 747 / 747 260 / 260 General: Awake, Alert, Oriented x 3 HEENT: PERRL, EOMI, Sclera Non Icteric Neck: Supple, Good ROM, No Lymph Node Enlargement Lungs: Clear to auscultation Cardiovascular: Regular Rhythm, Normal S1, Normal S2, No Murmurs, No Rubs, No Gallops Vascular: No Carotid Bruits, Normal Femoral Pulses, Normal Radial Pulses, Normal Dorsalis Pedal Pulse, Normal Posterior Tibial Pulses Abdomen: Bowel Sounds Present, Soft, No HSM, No Organomegaly, Hypoactive Bowel Sounds, RUQ Tenderness Extremities: No Cyanosis, No Clubbing, No edema Neurological: No Focal Motor or Sensory Deficit 10/27/19 17:55: WBC 6.5, RBC 3.78 L, Hgb 11.9 L, Hct 38.7, MCV 102.4 H, MCH 31.5, MCHC 30.7 L, Plt Count 328, MPV 10.4, Immature Gran % (Auto) 0.500, Neut % (Auto) 66.1, Lymph % (Auto) 22.7, [place] % (Auto) 7.1, Eos % (Auto) 2.8, Baso % (Auto) 0.8, Absolute Neuts (auto) 4.3, Nucleated RBC % 0 10/27/19 17:55: Sodium 137, Potassium 4.7, Chloride 100, Carbon Dioxide 29.0, Anion Gap 8, BUN 52 H, Creatinine 7.13 H, Est GFR (MDRD) Af Amer 8 L, Est GFR (MDRD) Non-Af 6 L, BUN/Creatinine Ratio 7.3 L, Glucose 244 H, Calcium 9.6, Total Bilirubin 0.40, Troponin I 1.230 H* 10/27/19 21:45: Troponin I 3.040 H* 10/28/19 01:05: Troponin I 3.990 H* 10/28/19 03:20: WBC 6.3, RBC 3.14 L, Hgb 10.0 L, Hct 32.7 L, MCV 104.1 H, MCH 31.8, MCHC 30.6 L, Plt Count 237, MPV 10.2, Immature Gran % (Auto) 0.200, Neut % (Auto) 60.1, Lymph % (Auto) 24.8, [place] % (Auto) 11.3 H, Eos % (Auto) 3.0, Baso % (Auto) 0.6, Absolute Neuts (auto) 3.8, Nucleated RBC % 0 10/28/19 03:20: Sodium 136, Potassium 4.4, Chloride 98, Carbon Dioxide 31.0, Anion Gap 7, BUN 54 H, Creatinine 7.39 H, Est GFR (MDRD) Af Amer 7 L, Est GFR (MDRD) Non-Af 6 L, BUN/Creatinine Ratio 7.3 L, Glucose 236 H, Calcium 8.7 10/28/19 03:20: Troponin I 4.400 H* Rhythm: EKG: ECHO: Stress Test: Cardiac Cath: PCI: CT Surgery: Holter monitor: EPS: PPM: CXR: Chest CT Scan: Assessment/Plan 1. Coronary artery disease: The patient has known significant ischemic cardiomyopathy with severe LV dysfunction and multivessel coronary artery disease. I reviewed her catheterization film from May 2019 which demonstrated widely patent KINCAID to the LAD, widely patent saphenous vein graft to the circumflex, and widely patent stents to her RCA. Patient has severe calcified left main, and has a known compromised small diagonal branch which may be the source of the patient's non-STEMI troponin release. This vessel is not bypassed but is not amenable to PCI. I believe the patient's presenting symptoms are more of a result of probable gastroparesis to explain her constipation, and possible intermittent cholecystitis to explain her 2-week history of nausea and vomiting. I reviewed her CT scan which demonstrates multiple gallstones and what may be a enlarged gallbladder. I recommended the patient undergo an ultrasound of her gallbladder to determine if she requires nonemergent elective cholecystectomy to relieve her symptoms. Given her severe LV dysfunction, I would recommend a repeat echocardiogram to determine if her LV function has improved with medical therapy since May 2019. This may have implications for perioperative fluid management and blood pressure management. If the patient requires cholecystectomy, she is at moderate risk for noncardiac surgery. I do not believe the patient requires repeat catheterization given her troponins and lack of exertional chest pain. I believe the majority of her pain symptoms are related to GI. Also in the differential, his gastritis or peptic ulcer disease. If it does not felt the patient requires cholecystectomy, an EGD may be indicated to determine if she has an ulcer that may be contributing to her symptoms. Either way I recommend general surgery consult. My preference would be for the patient undergo surgery with Plavix on board given her non-STEMI and severe multivessel coronary disease, but this could be held for several days if the surgeon felt strongly that it needs to be held in order to safely do a cholecystectomy. Her LFTs are not elevated at this time. 2. End-stage renal disease: The patient requires dialysis 3 times per week and has had no anginal symptoms during dialysis which is a stress on the persons heart. Would recommend consultation with Dr. Rollins and dialysis per protocol. 3. Diabetes: Patient may have gastroparesis to explain her worsening constipation which is been going on for some time. Interestingly her constipation did not improve with the cessation of amlodipine. 4. Hypertension: The patient has significant issues with widely fluctuating blood pressures, and most recently has had her Imdur increased to assist with hypertension induced chest pain anginal symptoms. Continue present management. 5. Thank you very much for the opportunity to participate in the cardiac care of your patient. Consultation time took place between 830 and 9:12 AM. Inpatient E&M: 53869 Init Hosp L2
--- NOTE | 2019-10-28 09:05 | US_ITS ---
STUDY: ABDOMINAL ULTRASOUND - RIGHT UPPER QUADRANT REASON FOR VISIT: Female, 59 years old CHEST/ABD PAIN -- CHOLELITHIASIS / CHOLECYSTITIS TECHNIQUE: Ultrasound evaluation of the right upper quadrant was performed with real-time and static acevedo-scale imaging. TECHNICAL QUALITY: Adequate. COMPARISON: Comparison is made with prior CT scan and abdomen dated October 27, 2019. FINDINGS: Liver: The liver measures 13.8 cm. There is normal echogenicity of the liver. The bile ducts are within normal limits. There is hepatic color flow. The direction of portal flow is hepatopetal. There is no demonstrated mass lesion. Gallbladder: Normal distended gallbladder. The gallbladder wall measures 2.8 mm. There is a negative sonographic Parkinson''s sign. There is no pericholecystic fluid. There are multiple echogenic structures within the gallbladder, consistent with multiple gallstones. Common Bile Duct (C.B.D.): The common bile duct measures 3.9 mm. Pancreas: Limited visualization of the pancreas due to overlying bowel gas. There is normal echogenicity of the pancreas. There is no demonstrated pancreatic mass or cyst. Right Kidney: There is atrophy of the right kidney. The right kidney measures 8.7 cm x 4 cm x 4.2 cm. Normal renal cortex. The right cortex measures 1.0 cm. There is no demonstrated renal mass or cyst. There is no right hydronephrosis. US/Gallbladder IMPRESSION: Multiple gallstones. Atrophy of the right kidney. Electronically Signed: Saman Acevedo, at 11:17 EDT , Service support ,
--- NOTE | 2019-10-28 09:12 | ECHOD_ITS ---
Reason For Study: CHEST PAIN Procedure This was a 2D Doppler, Color Flow transthoracic echocardiogram. Exam performed portable in patient room. Left Ventricle Normal size and thickness. The estimated ejection fraction is 50*55 %. Stage 2 diastolic dysfunction. Lateral-Basal: Mildly hypokinetic. Right Ventricle Normal size and thickness. Normal systolic function. Atria Normal left atrium. Normal right atrium. Normal atrial septum. Mitral Valve The mitral valve is structurally normal. No prolapse or stenosis seen. Tricuspid Valve Normal tricuspid valve. Unable to estimate RV systolic pressure due to insufficient tricuspid regurgitant envelope. Aortic Valve Trisinus/trileaflet aortic valve. Mild diffuse aortic valve thickening. Pulmonic Valve Normal pulmonic valve. Great Vessels Normal aortic root. Normal arch. Normal inferior vena cava. Inferior vena cava collapse with sniff. Pericardium/Pleural No pericardial effusion. MMode/2D Measurements & Calculations LVIDd: 4.8 cm IVSd: 1.1 cm Ao root diam: 3.0 cm LVIDs: 3.1 cm LVPWd: 1.2 cm RVDd: 3.5 cm FS: 35.3 % LAV(MOD-bp): 55.6 ml LA A4 area: 19.7 cm2 LA dimension(2D): 3.5 cm LAV(MOD-bp) Indexed: 29.8 ml/m2 LAV(MOD-sp2): 54.5 ml LAV(MOD-sp4): 54.6 ml RA A4 area: 13.8 cm2 Time Measurements MV dec time: 0.26 sec Doppler Measurements & Calculations MV E max [place]: 80.1 cm/sec Lat Peak E' [place]: 3.4 cm/sec Med Peak E' [place]: 3.3 cm/sec MV A max [place]: 71.7 cm/sec E/E' lat: 23.4 E/E' med: 24.3 MV E/A: 1.1 Ao V2 max: 123.4 cm/sec LV V1 max: 100.2 cm/sec PA V2 max: 111.5 cm/sec Ao max P.1 mmHg LV V1 max P.0 mmHg Interpretation Summary The estimated ejection fraction is 50*55 %. Stage 2 diastolic dysfunction. Lateral-Basal: Mildly hypokinetic Compared to echo report dated 05/26/2019, LV function has markedly improved from 30% to 50 to 55%. Ordering Physician: Freddie Huang Referring Physician: Brayden King Chi Performed By: Sangeetha Haynes RDCS, RVT
--- NOTE | 2019-10-28 09:31 | CON.PCM_ITS ---
Consultation - Renal 10/28/19 PCP/ Referring MD: Requesting physician: [] Primary care physician: Dr. Brayden King MD Reason for Consultation:: ESRD HD TTS - History of Present Illness History of Present Illness: The patient is a 59 year old F with ESRD due to diabetes on HD TTS due for dialysis today. She was admitted as observation for epigastric pain with persistent nausea, vomiting past 2 weeks. Troponin levels positive for NSTEMI. Cardiology consulted. Hx CAD s/p stents, CABG. GB US ordered to evaluate for gallstones. Complains of shortness of breath with vomiting. Denies cough, fever, chills. - Allergies Allergies: Allergies lisinopril Allergy (Verified 10/27/19 17:35) Unknown ranitidine HCl [From Zantac] Allergy (Verified 10/27/19 17:35) Hives azithromycin Adverse Reaction (Verified 10/27/19 17:35) Nausea/Vom/Diarrhea - Current Medications Current Medications: Current Medications Albuterol Sulfate (Ventolin Aerosols) 2.5 mg INHALATION Q4H PRN PRN PRN Reason: SOB/ WHEEZING Aspirin (Aspirin, Baby) 81 mg PO DAILY@0800 [facility] Atorvastatin Calcium (Lipitor) 80 mg PO QHS [facility] Last Admin: 10/27/19 23:04 Dose: 80 mg Documented by: Calcium Acetate (Phoslo Gel Cap) 1,334 mg PO TIDCM [facility] Carvedilol (Coreg) 12.5 mg PO BID [facility] Last Admin: 10/27/19 23:04 Dose: 12.5 mg Documented by: Cholecalciferol (Vitamin D (25mcg)) 1,000 unit PO DAILY [facility] Citalopram Hydrobromide (Celexa) 20 mg PO DAILY [facility] Clopidogrel Bisulfate (Plavix) 75 mg PO DAILY [facility] Dextrose (D50w Syringe) 0 gm IV X1 PRN; Protocol PRN Reason: Hypoglycemia Gabapentin (Neurontin) 300 mg PO QHS [facility] Last Admin: 10/27/19 23:04 Dose: 300 mg Documented by: Glucagon () 1 mg IM .X1 PRN PRN Reason: Hypoglycemia Sodium Chloride () 250 mls @ 15 mls/hr IV .[id number] PRN PRN Reason: Saline Flush Sodium Chloride () 250 mls @ 15 mls/hr IV .[id number] PRN PRN Reason: Additional IVPB Infusion Insulin Glargine (Lantus (Bkc)) 20 units SC DAILY [facility] Isosorbide Mononitrate (Imdur) 60 mg PO MoWeFr@2200 [facility] Last Admin: 10/27/19 23:31 Dose: 60 mg Documented by: Isosorbide Mononitrate (Imdur) 90 mg PO SuTuThSa@2200 [facility] Isosorbide Mononitrate (Imdur) 90 mg PO DAILY [facility] Morphine Sulfate () 4 mg IV Q3H PRN PRN PRN Reason: Pain Score 6-10/10 Multivit/Ca Carb/B Cmplx/FA/Prenat (Nephrocaps, Renaphro) 1 capsule PO DAILY [facility] Nitroglycerin (Nitrostat) 0.4 mg SUBLINGUAL Q5M PRN PRN Reason: CHEST PAIN Ondansetron HCl (Zofran) 4 mg IV Q8H PRN PRN PRN Reason: NAUSEA/VOMITING Senna (Senokot) 1 tablet PO QHS PRN PRN PRN Reason: Constipation Sodium Chloride () 10 - 40 ml IV UD PRN PRN Reason: SALINE FLUSH Last Admin: 10/28/19 04:25 Dose: 10 ml Documented by: Timolol Maleate (Timoptic) 1 drop RIGHT EYE BID [facility] Last Admin: 10/27/19 23:06 Dose: 1 drop Documented by: - Past Medical History Past Medical History (Chronic Problems): Chronic Problems (Last Reviewed 09/22/19 @ 08:38 by Anel Cesar) History of left heart catheterization (Chronic 05/26/19) Triple vessel CAD of the LM, LAD and LCX; Widely patent stents in RCA/PDA. Widely patent SVG to OM; Widely patent KINCAID to LAD with 40% distal [place] LAD disease, not appreciably changed from cath in 12/2018. Global LV systolic dysfunction- Severe. Per LHC done @ [facility] per DJN LVEF: by LV gram 20-25 % Depressed Left Ventricular systolic function - Severe Elevated Left Ventricular End Diastolic Pressure Chronic kidney disease with end stage renal failure on dialysis (Chronic) CAD in [place] artery (Chronic) Chronic kidney disease on chronic dialysis (Chronic) Glaucoma (Chronic) GERD (gastroesophageal reflux disease) (Chronic) Diabetic retinopathy (Chronic) DDD (degenerative disc disease) (Chronic) Anemia in chronic renal disease (Chronic) History of non-ST elevation myocardial infarction (NSTEMI) (Chronic) Nonrheumatic mitral (valve) insufficiency (Chronic) Secondary pulmonary arterial hypertension (Chronic) Chronic diastolic (congestive) heart failure (Chronic) 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 - Social History Smoking Status: Former smoker - Family History Paternal Family History: Family History (Last Reviewed 09/22/19 @ 08:38 by Anle Cesar) Father Heart disease Hypertension Prostate cancer Mother Hypertension History Items: Cancer - prostate, Heart Disease, Hypertension Sibling Family History: Family History (Last Reviewed 09/22/19 @ 08:38 by Anel Cesar) Father Heart disease Hypertension Prostate cancer Mother Hypertension History Items: Diabetes Maternal Family History: Family History (Last Reviewed 09/22/19 @ 08:38 by Anel Cesar) Father Heart disease Hypertension Prostate cancer Mother Hypertension History Items: Hypertension Review of Systems Constitutional: Reports: Anorexia. Denies: Chills, Fever, Weakness Cardiovascular: Reports: Chest Pain - epigastric Respiratory: Reports: Shortness of Breath - with vomiting episodes. Denies: Cough Gastrointestinal: Reports: Abdominal Pain - epigastric, Nausea, Vomiting Genitourinary: Denies: Dysuria Musculoskeletal: Reports: - - no edema. Denies: Arm Pain Neurological: Denies: Balance problems Psychiatric: Denies: Anxiety, Depression Hematologic/ Lymphatic: Reports: Anemia Patient Problems: Active and Suspected Problems (Last Reviewed 09/22/19 @ 08:38 by Anel Cesar) Chest pain (Acute) - Physical Exam Vitals/I&O's: Vital Signs Temp Pulse Resp BP Pulse Ox 98.2 F 62 18 115/55 L 96 10/28/19 08:35 10/28/19 08:35 10/28/19 08:35 10/28/19 08:35 10/28/19 08:35 Oxygen Flow Rate (L/min) 2 Oxygen Delivery Method Nasal Cannula Weight: 91.1 kg Body Mass Index (BMI) 39.2 Finger Stick Blood Glucose 275 Intake and Output for Last 24 Hours 10/26/19 10/27/19 10/28/19 23:59 23:59 23:59 Intake Total 747 / 747 260 / 260 Output Total 0 / 0 0 / 0 Balance 747 / 747 260 / 260 General: Alert, Oriented x3, Cooperative, No apparent distress HEENT: PERRLA, EOMI Lungs: Clear to auscultation Cardiovascular: Regular rate Abdomen: Bowel Sounds Present, Soft, Non Tender, Non-Distended Extremities: No edema Skin: No rashes Psych/Mental Status: Normal Affect, Appropriate, Alert and oriented to time, place, person, mood and affect Laboratory Results 10/27/19 17:55: WBC 6.5, RBC 3.78 L, Hgb 11.9 L, Hct 38.7, MCV 102.4 H, MCH 31.5, MCHC 30.7 L, RDW Std Deviation 54.5 H, RDW Coeff of Lauren 14.4, Plt Count 328, MPV 10.4, Immature Gran % (Auto) 0.500, Neut % (Auto) 66.1, Lymph % (Auto) 22.7, [place] % (Auto) 7.1, Eos % (Auto) 2.8, Baso % (Auto) 0.8, Absolute Neuts (auto) 4.3, Absolute Lymphs (auto) 1.47, Nucleated RBC % 0 10/27/19 17:55: Sodium 137, Potassium 4.7, Chloride 100, Carbon Dioxide 29.0, Anion Gap 8, BUN 52 H, Creatinine 7.13 H, Estim Creat Clear Calc 6.03, Est GFR (MDRD) Af Amer 8 L, Est GFR (MDRD) Non-Af 6 L, BUN/Creatinine Ratio 7.3 L, Glucose 244 H, Calcium 9.6, Total Bilirubin 0.40, AST 25, ALT 21, Alkaline Phosphatase 88, Troponin I 1.230 H*, Total Protein 7.6, Albumin 3.5, Globulin 4.1, Albumin/Globulin Ratio 0.9, Lipase 247 10/27/19 21:45: Troponin I 3.040 H* 10/27/19 22:58: POC Glucose 177 H 10/28/19 01:05: Troponin I 3.990 H* 10/28/19 03:20: WBC 6.3, RBC 3.14 L, Hgb 10.0 L, Hct 32.7 L, MCV 104.1 H, MCH 31.8, MCHC 30.6 L, RDW Std Deviation 55.9 H, RDW Coeff of Lauren 14.7 H, Plt Count 237, MPV 10.2, Immature Gran % (Auto) 0.200, Neut % (Auto) 60.1, Lymph % (Auto) 24.8, [place] % (Auto) 11.3 H, Eos % (Auto) 3.0, Baso % (Auto) 0.6, Absolute Neuts (auto) 3.8, Absolute Lymphs (auto) 1.56, Nucleated RBC % 0 10/28/19 03:20: Sodium 136, Potassium 4.4, Chloride 98, Carbon Dioxide 31.0, Anion Gap 7, BUN 54 H, Creatinine 7.39 H, Estim Creat Clear Calc 5.81, Est GFR (MDRD) Af Amer 7 L, Est GFR (MDRD) Non-Af 6 L, BUN/Creatinine Ratio 7.3 L, Glucose 236 H, Calcium 8.7 10/28/19 03:20: Troponin I 4.400 H* 10/28/19 03:59: POC Glucose 215 H 10/28/19 06:42: POC Glucose 192 H Clinical Impression(s) from Imaging Studies Abdomen/Pelvis CT 10/27/19 18:03 IMPRESSION: No acute and/or abdominal or pelvic processes. There is no major interval change when compared to April 06, 2017. Electronically Signed: Deion Sheridan DO at 19:04 EDT Tel [phone], Service support , Chest X-Ray 10/27/19 18:35 IMPRESSION: No acute cardiopulmonary disease. Electronically Signed: Deion Sheridan DO at 18:58 EDT Tel [phone], Service support , Current Medications Albuterol Sulfate (Ventolin Aerosols) 2.5 mg INHALATION Q4H PRN PRN PRN Reason: SOB/ WHEEZING Aspirin (Aspirin, Baby) 81 mg PO DAILY@0800 [facility] Atorvastatin Calcium (Lipitor) 80 mg PO QHS [facility] Last Admin: 10/27/19 23:04 Dose: 80 mg Documented by: Calcium Acetate (Phoslo Gel Cap) 1,334 mg PO TIDCM [facility] Carvedilol (Coreg) 12.5 mg PO BID [facility] Last Admin: 10/27/19 23:04 Dose: 12.5 mg Documented by: Cholecalciferol (Vitamin D (25mcg)) 1,000 unit PO DAILY [facility] Citalopram Hydrobromide (Celexa) 20 mg PO DAILY [facility] Clopidogrel Bisulfate (Plavix) 75 mg PO DAILY [facility] Dextrose (D50w Syringe) 0 gm IV X1 PRN; Protocol PRN Reason: Hypoglycemia Gabapentin (Neurontin) 300 mg PO QHS [facility] Last Admin: 10/27/19 23:04 Dose: 300 mg Documented by: Glucagon () 1 mg IM .X1 PRN PRN Reason: Hypoglycemia Sodium Chloride () 250 mls @ 15 mls/hr IV .[id number] PRN PRN Reason: Saline Flush Sodium Chloride () 250 mls @ 15 mls/hr IV .[id number] PRN PRN Reason: Additional IVPB Infusion Insulin Glargine (Lantus (Bkc)) 20 units SC DAILY [facility] Isosorbide Mononitrate (Imdur) 60 mg PO MoWeFr@2200 [facility] Last Admin: 10/27/19 23:31 Dose: 60 mg Documented by: Isosorbide Mononitrate (Imdur) 90 mg PO SuTuThSa@2200 [facility] Isosorbide Mononitrate (Imdur) 90 mg PO DAILY [facility] Morphine Sulfate () 4 mg IV Q3H PRN PRN PRN Reason: Pain Score 6-10/10 Multivit/Ca Carb/B Cmplx/FA/Prenat (Nephrocaps, Renaphro) 1 capsule PO DAILY [facility] Nitroglycerin (Nitrostat) 0.4 mg SUBLINGUAL Q5M PRN PRN Reason: CHEST PAIN Ondansetron HCl (Zofran) 4 mg IV Q8H PRN PRN PRN Reason: NAUSEA/VOMITING Senna (Senokot) 1 tablet PO QHS PRN PRN PRN Reason: Constipation Sodium Chloride () 10 - 40 ml IV UD PRN PRN Reason: SALINE FLUSH Last Admin: 10/28/19 04:25 Dose: 10 ml Documented by: Timolol Maleate (Timoptic) 1 drop RIGHT EYE BID [facility] Last Admin: 10/27/19 23:06 Dose: 1 drop Documented by: Assessment/Plan All Active Problems (Last Reviewed 09/22/19 @ 08:38 by Anel Cesar) Chest pain (Acute) 1. ESRD HD TTS. Dialysis arranged in hospital 2. Anemia hgb stable 3. Chest pain, NSTEMI with positive troponins. Cardiology consulted 4. DM2 stable 5. HTN stable 6. Abdominal, epigastric pain. US abdomen for Gallstones
--- NOTE | 2019-10-28 10:24 | PCM.PROGNOTE ---
Patient Problems: Active and Suspected Problems (Last Reviewed 09/22/19 @ 08:38 by Anel Cesar) Chest pain (Acute) Subjective: Chief complaint: Follow-up after admission for acute non-ST relation OH as well as nausea and vomiting. Patient seen and examined. No acute events overnight. Today, she has no more chest pain, denies shortness of breath. Nausea and vomiting improved. She reported minimal vague abdominal pain but improved as well. Early this morning, blood pressure was around 80 systolic but improved later. She has been afebrile, heart rate stable, pulse ox is 100% on 2 L. - Physical Exam Vitals/I&O's: Vital Signs Temp Pulse Resp BP Pulse Ox 98.2 F 62 18 115/55 L 96 10/28/19 08:35 10/28/19 08:35 10/28/19 08:35 10/28/19 08:35 10/28/19 08:35 Oxygen Flow Rate (L/min) 2 Oxygen Delivery Method Nasal Cannula Weight: 200 lb 13.458 oz Body Mass Index (BMI) 39.2 Finger Stick Blood Glucose 275 Intake and Output for Last 24 Hours 10/26/19 10/27/19 10/28/19 23:59 23:59 23:59 Intake Total 747 / 747 260 / 260 Output Total 0 / 0 0 / 0 Balance 747 / 747 260 / 260 General: Alert, Oriented x3, Cooperative, No apparent distress HEENT: Atraumatic, PERRLA, EOMI, Normocephalic Oral: Moist Mucosa, No Gingival or Mucosal Lesions/ Ulcerations Neck: Supple, No JVD, Negative Carotid Bruits, Trachea Midline, Thyroid Normal Size and Texture Lungs: Clear to auscultation, Normal air movement, No rhonchi, No wheeze, No rales Cardiovascular: Regular rate, Regular Rhythm, Normal S1, Normal S2, PMI Normal Abdomen: Bowel Sounds Present, Soft, Non Tender, Non-Distended, No Hepato-splenomegaly Extremities: No clubbing, No cyanosis, No edema Skin: No rashes, No breakdown Lymphatic: No Cervical, Supraclavicular, or Inguinal Adenopathy Neurological: Cranial nerves II-XII grossly intact, Motor Exam 5/5 strength throughout Psych/Mental Status: Normal Affect, Appropriate Laboratory Results 10/27/19 17:55: WBC 6.5, RBC 3.78 L, Hgb 11.9 L, Hct 38.7, MCV 102.4 H, MCH 31.5, MCHC 30.7 L, RDW Std Deviation 54.5 H, RDW Coeff of Lauren 14.4, Plt Count 328, MPV 10.4, Immature Gran % (Auto) 0.500, Neut % (Auto) 66.1, Lymph % (Auto) 22.7, [place] % (Auto) 7.1, Eos % (Auto) 2.8, Baso % (Auto) 0.8, Absolute Neuts (auto) 4.3, Absolute Lymphs (auto) 1.47, Nucleated RBC % 0 10/27/19 17:55: Sodium 137, Potassium 4.7, Chloride 100, Carbon Dioxide 29.0, Anion Gap 8, BUN 52 H, Creatinine 7.13 H, Estim Creat Clear Calc 6.03, Est GFR (MDRD) Af Amer 8 L, Est GFR (MDRD) Non-Af 6 L, BUN/Creatinine Ratio 7.3 L, Glucose 244 H, Calcium 9.6, Total Bilirubin 0.40, AST 25, ALT 21, Alkaline Phosphatase 88, Troponin I 1.230 H*, Total Protein 7.6, Albumin 3.5, Globulin 4.1, Albumin/Globulin Ratio 0.9, Lipase 247 10/27/19 21:45: Troponin I 3.040 H* 10/27/19 22:58: POC Glucose 177 H 10/28/19 01:05: Troponin I 3.990 H* 10/28/19 03:20: WBC 6.3, RBC 3.14 L, Hgb 10.0 L, Hct 32.7 L, MCV 104.1 H, MCH 31.8, MCHC 30.6 L, RDW Std Deviation 55.9 H, RDW Coeff of Lauren 14.7 H, Plt Count 237, MPV 10.2, Immature Gran % (Auto) 0.200, Neut % (Auto) 60.1, Lymph % (Auto) 24.8, [place] % (Auto) 11.3 H, Eos % (Auto) 3.0, Baso % (Auto) 0.6, Absolute Neuts (auto) 3.8, Absolute Lymphs (auto) 1.56, Nucleated RBC % 0 10/28/19 03:20: Sodium 136, Potassium 4.4, Chloride 98, Carbon Dioxide 31.0, Anion Gap 7, BUN 54 H, Creatinine 7.39 H, Estim Creat Clear Calc 5.81, Est GFR (MDRD) Af Amer 7 L, Est GFR (MDRD) Non-Af 6 L, BUN/Creatinine Ratio 7.3 L, Glucose 236 H, Calcium 8.7 10/28/19 03:20: Troponin I 4.400 H* 10/28/19 03:59: POC Glucose 215 H 10/28/19 06:42: POC Glucose 192 H Clinical Impression(s) from Imaging Studies Abdomen/Pelvis CT 10/27/19 18:03 IMPRESSION: No acute and/or abdominal or pelvic processes. There is no major interval change when compared to April 06, 2017. Electronically Signed: Deion Sheridan DO at 19:04 EDT Tel [phone], Service support , Chest X-Ray 10/27/19 18:35 IMPRESSION: No acute cardiopulmonary disease. Electronically Signed: Deion Sheridan DO at 18:58 EDT Tel [phone], Service support , Current Medications Albuterol Sulfate (Ventolin Aerosols) 2.5 mg INHALATION Q4H PRN PRN PRN Reason: SOB/ WHEEZING Aspirin (Aspirin, Baby) 81 mg PO DAILY@0800 [facility] Atorvastatin Calcium (Lipitor) 80 mg PO QHS [facility] Last Admin: 10/27/19 23:04 Dose: 80 mg Documented by: Calcium Acetate (Phoslo Gel Cap) 1,334 mg PO TIDCM [facility] Carvedilol (Coreg) 12.5 mg PO BID [facility] Last Admin: 10/27/19 23:04 Dose: 12.5 mg Documented by: Cholecalciferol (Vitamin D (25mcg)) 1,000 unit PO DAILY [facility] Citalopram Hydrobromide (Celexa) 20 mg PO DAILY [facility] Clopidogrel Bisulfate (Plavix) 75 mg PO DAILY [facility] Dextrose (D50w Syringe) 0 gm IV X1 PRN; Protocol PRN Reason: Hypoglycemia Gabapentin (Neurontin) 300 mg PO QHS [facility] Last Admin: 10/27/19 23:04 Dose: 300 mg Documented by: Glucagon () 1 mg IM .X1 PRN PRN Reason: Hypoglycemia Sodium Chloride () 250 mls @ 15 mls/hr IV .[id number] PRN PRN Reason: Saline Flush Sodium Chloride () 250 mls @ 15 mls/hr IV .[id number] PRN PRN Reason: Additional IVPB Infusion Insulin Glargine (Lantus (Bkc)) 20 units SC DAILY [facility] Isosorbide Mononitrate (Imdur) 60 mg PO MoWeFr@2200 [facility] Last Admin: 10/27/19 23:31 Dose: 60 mg Documented by: Isosorbide Mononitrate (Imdur) 90 mg PO SuTuThSa@2200 [facility] Isosorbide Mononitrate (Imdur) 90 mg PO DAILY [facility] Morphine Sulfate () 4 mg IV Q3H PRN PRN PRN Reason: Pain Score 6-10/10 Multivit/Ca Carb/B Cmplx/FA/Prenat (Nephrocaps, Renaphro) 1 capsule PO DAILY [facility] Nitroglycerin (Nitrostat) 0.4 mg SUBLINGUAL Q5M PRN PRN Reason: CHEST PAIN Ondansetron HCl (Zofran) 4 mg IV Q8H PRN PRN PRN Reason: NAUSEA/VOMITING Senna (Senokot) 1 tablet PO QHS PRN PRN PRN Reason: Constipation Sodium Chloride () 10 - 40 ml IV UD PRN PRN Reason: SALINE FLUSH Last Admin: 10/28/19 04:25 Dose: 10 ml Documented by: Timolol Maleate (Timoptic) 1 drop RIGHT EYE BID [facility] Last Admin: 10/27/19 23:06 Dose: 1 drop Documented by: Medical Necessity - Tobacco Use Smoking Status: Former smoker Assessment/Plan All Active Problems (Last Reviewed 09/22/19 @ 08:38 by Anel Cesar) Chest pain (Acute) This is a 59 years old female patient presented to the emergency room because of chest pain with nausea and vomiting and was found to have acute non-ST relation OH. #1 acute non-ST relation OH: EKG revealed normal sinus rhythm, T wave inversion and ST segment depression in leads V4, V5 and V6. No acute ST elevation. Today, patient is chest pain-free. She is on aspirin, Plavix, statins, Coreg, nitrate. Cardiology consulted. Patient had cardiac catheterization on May, that revealed widely patent cardiac stents, no evidence of acute or new lesions and no intervention performed. 2D echocardiogram ordered. This morning, blood pressure was slightly on the lower side but improved. Currently, hemodynamically stable. This event could be initiated by the nausea and vomiting which was caused by unclear reason. CT scan abdomen and pelvis reviewed, revealed no acute findings. Does show some small gallstones, no evidence of acute cholecystitis. Plan to continue same treatment, awaiting 2D echocardiogram. #2 nausea/vomiting/vague mild abdominal pain: Unclear etiology. CT scan abdomen pelvis reviewed as above. LFT and lipase were normal. Her symptoms today improved. She has no right upper quadrant tenderness. Ultrasound gallbladder done, awaiting results. Cardiology recommended general surgery consult. Dr. Chacon was consulted. #3 end-stage renal disease on dialysis: On dialysis on Tuesdays, and Saturdays. Nephrology consulted. #4 CAD status post CABG and stents: Plan as above, continue aspirin, statins, beta-blockers, Plavix, nitrates. #5 type 2 diabetes mellitus: ADA diet, continue Lantus, Accu-Cheks and insulin sliding scale. #6 hypertension: Blood pressure improved, it was around 80 systolic this morning. Continue current medications. #7 chronic anemia: Secondary to anemia of chronic disease. Hemoglobin and hematocrit are stable at baseline. #8 COPD: Clinically stable, no worsening shortness of breath. Continue albuterol PRN. #9 hyperlipidemia: Continue statins. #10 DVT prophylaxis: Subcu heparin. This note was generated with [employer] dictation software. It may contain incorrect words, spelling, and punctuation that were not noted in checking the note before signing. OBSV E&M: 40791 Subsequent observation care L2
[2019-10-28] MEDS: Timolol 0.5% 5ML OPTH.BTL 1 DRP RIGHT EYE ×2 (10:31→22:19)
--- NOTE | 2019-10-28 11:17 | CON.PCM_ITS ---
Problem List (1) Chest pain Status: Acute Qualifiers: Chest pain type: unspecified Qualified Code(s): R07.9 - Chest pain, unspecified (2) Cholelithiasis Status: Acute Qualifiers: Cholelithiasis location: gallbladder Cholecystitis presence: without cholecystitis Biliary obstruction: without biliary obstruction Qualified Code(s): K80.20 - Calculus of gallbladder without cholecystitis without obstruction (3) Nausea & vomiting Status: Acute Reason for Consult Date of Consultation: 10/28/19 History of Present Illness: The patient is a 59 year old F, very well-known to me, with a history of diabe angely, hypertension, hypercholesterolemia, end-stage renal disease currently on hemodialysis, who was in normal health up until around 2 weeks ago when she began developing nausea and vomiting and significant constipation on a daily basis. Most the time her nausea and vomiting would take place in the evening, at which time she would develop some midsternal chest burning, but her vomiting improved those symptoms. In addition the patient complained of significant worsening constipation. Her amlodipine was discontinued although this did not improve her constipation. She has previously known gallstones. Her symptoms worsened yesterday when she had repeated episodes of nausea and vomiting, nonbloody vomitus, with no associated fevers or chills. She sought medical attention at [facility] ER where an EKG was performed showed normal sinus rhythm, LVH with repolarization normalities, and lateral T wave inversion which was previously seen on EKGs. At no time as the patient had any exertional anginal symptoms or angina during dialysis. She has known severe multivessel coronary disease and is status post stenting to RCA. Her most recent catheterization took place at [facility] on 05/26/2019 due to chest pain. The results were as follows: Triple vessel CAD of the LM, LAD and LCX Widely patent stents in RCA/PDA. Widely patent SVG to OM Widely patent KINCAID to LAD with 40% distal alutiiq LAD disease, not appreciably changed from cath in 12/2018. Global LV systolic dysfunction- Severe LVEF: by LV gram 20-25 % Depressed Left Ventricular systolic function - Severe Elevated Left Ventricular End Diastolic Pressure[ A CT scan was performed yesterday which demonstrated significant multiple gallstones in the dependent area of the gallbladder with what appeared to be dilatation of the gallbladder without evidence of inflammation. CT scan reviewed. Ultrasound of gallbladder pending. In addition the patient has severe LV dysfunction with her most recent echocard iogram taking place on 05/27/2019 with the following results: Mildly dilated left ventricle. The estimated ejection fraction is 25-30 %. Stage 2 diastolic dysfunction. There is moderate to severe global hypokinesis of the left ventricle. Mild (1+) mitral valve insufficiency. Trivial tricuspid valve insufficiency. Unable to estimate RV systolic pressure due to insufficient tricuspid r egurgitant envelope. Compared to echo report dated 02/19/2019, LV function is reduced from 45% to around 25 to 30%, and unable to quantitate RVSP on this exam. Patient's initial troponin was 1.2, and is increased to a maximum of 4.4. Her telemetry has been negative overnight. She is currently resting comfortably and chest pain-free. At the present time she is not complaining of any nausea or vomiting. She is not having any current chest pain nor she having any abdominal pain. She has been given an antinausea medication. Past Medical History Past Medical History (Chronic Problems): Chronic Problems (Last Reviewed 09/22/19 @ 08:38 by Anel Cesar) History of left heart catheterization (Chronic 05/26/19) Triple vessel CAD of the LM, LAD and LCX; Widely patent stents in RCA/PDA. Widely patent SVG to OM; Widely patent KINCAID to LAD with 40% distal alutiiq LAD disease, not appreciably changed from cath in 12/2018. Global LV systolic dysfunction- Severe. Per LHC done @ [facility] per DJN LVEF: by LV gram 20-25 % Depressed Left Ventricular systolic function - Severe Elevated Left Ventricular End Diastolic Pressure Chronic kidney disease with end stage renal failure on dialysis (Chronic) CAD in alutiiq artery (Chronic) Chronic kidney disease on chronic dialysis (Chronic) Glaucoma (Chronic) GERD (gastroesophageal reflux disease) (Chronic) Diabetic retinopathy (Chronic) DDD (degenerative disc disease) (Chronic) Anemia in chronic renal disease (Chronic) History of non-ST elevation myocardial infarction (NSTEMI) (Chronic) Nonrheumatic mitral (valve) insufficiency (Chronic) Secondary pulmonary arterial hypertension (Chronic) Chronic diastolic (congestive) heart failure (Chronic) 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) I25.728 CABG x3- KINCAID-LAD, SVG-CX, SVG-RCA 06/25/14 @ [facility] Diabetes mellitus type 2 in obese (Chronic) E11.9, E66.9 End-stage renal disease on hemodialysis (Chronic) N18.6, Z99.2 Hypertension (Chronic) I10 HLD (hyperlipidemia) (Chronic) E78.5 COPD (chronic obstructive pulmonary disease) (Chronic) J44.9 CLAUDIO (obstructive sleep apnea) (Chronic) G47.33 17/11 cmH2O Secondary hyperparathyroidism of renal origin (Chronic) N25.81 Arteriovenous fistula stenosis (Inactive) T82.858A Allergies lisinopril Allergy (Verified 10/27/19 17:35) Unknown ranitidine HCl [From Zantac] Allergy (Verified 10/27/19 17:35) Hives azithromycin Adverse Reaction (Verified 10/27/19 17:35) Nausea/Vom/Diarrhea Home Medications: Ambulatory Orders Medication Instructions Recorded Gabapentin [Neurontin] 300 mg PO QHS 06/07/17 Sennosides [Senna] 8.6 mg PO QHS PRN 06/07/17 Citalopram Hydrobromide 30 mg PO DAILY 07/26/19 [Citalopram HBr] Timolol 0.5% [Timoptic] 1 drp RIGHT EYE BID 11/15/18 aspirin 81 mg chewable tablet 81 mg PO DAILY@0800 #90 tab 03/06/19 albuterol sulfate 90 mcg/actuation 1 puff INHALATION Q6H PRN PRN #1 04/14/19 aerosol inhaler inhaler Atorvastatin Calcium 80 mg PO QHS 05/24/19 Clopidogrel Bisulfate [Clopidogrel] 75 mg PO DAILY 05/24/19 Isosorbide Mononitrate [Isosorbide 60 mg PO UD 05/24/19 Mononitrate ER] B complex with C 20-folic acid 1 1 cap PO DAILY 06/09/19 mg capsule Insulin Glargine,Hum.rec.anlog 40 unit SQ DAILY 09/22/19 [Basaglar Kwikpen U-100] Isosorbide Mononitrate [Imdur] 90 mg PO BID #60 tab 09/22/19 carvedilol 12.5 mg tablet 12.5 mg PO BID 09/22/19 nitroglycerin 0.4 mg sublingual 0.4 mg SUBLINGUAL Q5-15M PRN #25 09/22/19 tablet tab Ascorbic Acid [Vitamin C] 500 mg PO DAILY 10/27/19 Cholecalciferol (VIT D3) [Vitamin 1,000 unit PO DAILY 10/27/19 D] Icosapent Ethyl [Vascepa] 1 gm PO TIDCM 10/27/19 Surgical History: Surgical History (Last Reviewed 10/28/19 @ 11:[address] Freddie Chacon MD) History of left heart catheterization (Chronic) Onset Date: 05/26/19 Z98.890 Triple vessel CAD of the LM, LAD and LCX; Widely patent stents in RCA/PDA. Widely patent SVG to OM; Widely patent KINCAID to LAD with 40% distal alutiiq LAD disease, not appreciably changed from cath in 12/2018. Global LV systolic dysfunction- Severe. Per LHC done @ [facility] per DJN LVEF: by LV gram 20-25 % Depressed Left Ventricular systolic function - Severe Elevated Left Ventricular End Diastolic Pressure Aortocoronary bypass status (Inactive) Onset Date: 06/25/14 Z95.1 CABG x3- KINCAID-LAD, SVG-CX, SVG-RCA 06/25/14 @ [facility] History of cataract surgery (Inactive) Z98.49 History of hysterectomy (Inactive) Z90.710 Postsurgical percutaneous transluminal coronary angioplasty (PTCA) status (Inactive) Onset Date: 02/18/19 Z98.61 06/12/2017:Triple vessel CAD of the LM, LCX, LAD; Persistent distal anastamotic lesion from SVG to OM#2; Possibly signifcant ischemia in DIAG branch downstream from critical LM lesion. Successful PCI with PTCA to the DISTAL ANASTOMOTIC SITE OF SVG TO OM WITH 1.5, THEN 2.0 BALLOON; 85%-->10%, NO DISSECTION OR PERFORATION. No additional stenting performed out of concern for restricting retrograde blood flow to alutiiq AV LCX, as well as lack of anginal symptoms during prolonged balloon inflation. Culprit artery may be alutiiq DIAG#1 due to LM disease, but to correct LM disease may jeopardize patent KINCAID. 02/18/2019:Triple vessel CAD of the LAD, LCX, RCA; Widely patent KINCAID to LAD; Widely patent SVG to OM with well healed distal SVG anastomitic site from previous PCI/POBA. Successful PTCA/MIGUEL distal RCA with a 2.25 x 16 Promus Synergy, 75%-->0%, no dissection. Pt had identical chest pressure during stent deployment. Successful PTCA/MIGUEL Proximal RCA with a 2.5 x 20 Promus Synergy, post dilated throughout with a 2.5 x 8 NC Balloon; 75%-->0%, no dissection. 02/20/2019:Successful PTCA/MIGUEL distal RCA with a 2.25 x 16 Promus Synergy stent at 8ATM, then inflated to 12 milton in proximal stent to insure proper appoistion with previously placed distal RCA stent. Successful PCI with PTCA to the proximal/ostial RCA to insure that no recently placed stent struts were crimped during this procedure. Not a true STEMI; Pt had ACS with recent stenting 2 days ago with dynamic ECG changes without overt ST Elevation. angioplasty of artriovenous fistula (Inactive) Surgical History: angioplasty, cataract, coronary bypass surgery - CABG x 3., hysterectomy, - - AVF placement, back surgery. 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 Smoking Status: Former smoker - *Family History Paternal Family History: Family History (Last Reviewed 09/22/19 @ 08:38 by Anel Cesar) Father Heart disease Hypertension Prostate cancer Mother Hypertension History Items: Cancer - prostate, Heart Disease, Hypertension Sibling Family History: Family History (Last Reviewed 09/22/19 @ 08:38 by Anel Cesar) Father Heart disease Hypertension Prostate cancer Mother Hypertension History Items: Diabetes Maternal Family History: Family History (Last Reviewed 09/22/19 @ 08:38 by Anel Cesar) Father Heart disease Hypertension Prostate cancer Mother Hypertension History Items: Hypertension Review of Systems Constitutional: Denies: Chills, Fever, Weight Change Cardiovascular: Reports: Chest Pain Gastrointestinal: Reports: Abdominal Pain - Epigastric discomfort., Nausea - She has not noticed any coffee ground emesis., Vomiting Patient Problems: Active and Suspected Problems (Last Reviewed 09/22/19 @ 08:38 by Anel Cesar) Cholelithiasis (Acute) Nausea & vomiting (Acute) Chest pain (Acute) - Physical Exam Vitals/I&O's: Vital Signs Temp Pulse Resp BP Pulse Ox 98.2 F 62 18 115/55 L 96 10/28/19 08:35 10/28/19 08:35 10/28/19 08:35 10/28/19 08:35 10/28/19 08:35 Oxygen Flow Rate (L/min) 2 Oxygen Delivery Method Nasal Cannula Weight: 200 lb 13.458 oz Body Mass Index (BMI) 39.2 Finger Stick Blood Glucose 275 Intake and Output for Last 24 Hours 10/26/19 10/27/19 10/28/19 23:59 23:59 23:59 Intake Total 747 / 747 260 / 260 Output Total 0 / 0 0 / 0 Balance 747 / 747 260 / 260 General: Alert, Oriented x3 Lungs: Clear to auscultation Cardiovascular: Regular rate, Regular Rhythm, No murmurs Abdomen: Bowel Sounds Present, Soft, Non Tender, Non-Distended Laboratory Results 10/27/19 17:55: WBC 6.5, RBC 3.78 L, Hgb 11.9 L, Hct 38.7, MCV 102.4 H, MCH 31.5, MCHC 30.7 L, RDW Std Deviation 54.5 H, RDW Coeff of Lauren 14.4, Plt Count 328, MPV 10.4, Immature Gran % (Auto) 0.500, Neut % (Auto) 66.1, Lymph % (Auto) 22.7, Bradford % (Auto) 7.1, Eos % (Auto) 2.8, Baso % (Auto) 0.8, Absolute Neuts (auto) 4.3, Absolute Lymphs (auto) 1.47, Nucleated RBC % 0 10/27/19 17:55: Sodium 137, Potassium 4.7, Chloride 100, Carbon Dioxide 29.0, Anion Gap 8, BUN 52 H, Creatinine 7.13 H, Estim Creat Clear Calc 6.03, Est GFR (MDRD) Af Amer 8 L, Est GFR (MDRD) Non-Af 6 L, BUN/Creatinine Ratio 7.3 L, Glucose 244 H, Calcium 9.6, Total Bilirubin 0.40, AST 25, ALT 21, Alkaline Phosphatase 88, Troponin I 1.230 H*, Total Protein 7.6, Albumin 3.5, Globulin 4.1, Albumin/Globulin Ratio 0.9, Lipase 247 10/27/19 21:45: Troponin I 3.040 H* 10/27/19 22:58: POC Glucose 177 H 10/28/19 01:05: Troponin I 3.990 H* 10/28/19 03:20: WBC 6.3, RBC 3.14 L, Hgb 10.0 L, Hct 32.7 L, MCV 104.1 H, MCH 31.8, MCHC 30.6 L, RDW Std Deviation 55.9 H, RDW Coeff of Lauren 14.7 H, Plt Count 237, MPV 10.2, Immature Gran % (Auto) 0.200, Neut % (Auto) 60.1, Lymph % (Auto) 24.8, Bradford % (Auto) 11.3 H, Eos % (Auto) 3.0, Baso % (Auto) 0.6, Absolute Neuts (auto) 3.8, Absolute Lymphs (auto) 1.56, Nucleated RBC % 0 10/28/19 03:20: Sodium 136, Potassium 4.4, Chloride 98, Carbon Dioxide 31.0, Anion Gap 7, BUN 54 H, Creatinine 7.39 H, Estim Creat Clear Calc 5.81, Est GFR (MDRD) Af Amer 7 L, Est GFR (MDRD) Non-Af 6 L, BUN/Creatinine Ratio 7.3 L, Glucose 236 H, Calcium 8.7 10/28/19 03:20: Troponin I 4.400 H* 10/28/19 03:59: POC Glucose 215 H 10/28/19 06:42: POC Glucose 192 H Current Medications Albuterol Sulfate (Ventolin Aerosols) 2.5 mg INHALATION Q4H PRN PRN PRN Reason: SOB/ WHEEZING Aspirin (Aspirin, Baby) 81 mg PO DAILY@0800 [facility] Atorvastatin Calcium (Lipitor) 80 mg PO QHS [facility] Last Admin: 10/27/19 23:04 Dose: 80 mg Documented by: Calcium Acetate (Phoslo Gel Cap) 1,334 mg PO TIDCM [facility] Last Admin: 10/28/19 10:33 Dose: Not Given Documented by: Carvedilol (Coreg) 12.5 mg PO BID [facility] Last Admin: 10/27/19 23:04 Dose: 12.5 mg Documented by: Cholecalciferol (Vitamin D (25mcg)) 1,000 unit PO DAILY [facility] Citalopram Hydrobromide (Celexa) 20 mg PO DAILY [facility] Clopidogrel Bisulfate (Plavix) 75 mg PO DAILY [facility] Dextrose (D50w Syringe) 0 gm IV X1 PRN; Protocol PRN Reason: Hypoglycemia Gabapentin (Neurontin) 300 mg PO QHS [facility] Last Admin: 10/27/19 23:04 Dose: 300 mg Documented by: Glucagon () 1 mg IM .X1 PRN PRN Reason: Hypoglycemia Heparin Sodium (Porcine) (Heparin Na) 5,000 unit SC Q12 [facility] Sodium Chloride () 250 mls @ 15 mls/hr IV .[id number] PRN PRN Reason: Saline Flush Sodium Chloride () 250 mls @ 15 mls/hr IV .[id number] PRN PRN Reason: Additional IVPB Infusion Insulin Glargine (Lantus (Bkc)) 20 units SC DAILY [facility] Insulin Human Lispro (Humalog Kwikpen (Bkc)) 0 unit SC ACHS [facility]; Protocol Isosorbide Mononitrate (Imdur) 60 mg PO MoWeFr@2200 [facility] Last Admin: 10/27/19 23:31 Dose: 60 mg Documented by: Isosorbide Mononitrate (Imdur) 90 mg PO SuTuThSa@2200 [facility] Isosorbide Mononitrate (Imdur) 90 mg PO DAILY [facility] Morphine Sulfate () 4 mg IV Q3H PRN PRN PRN Reason: Pain Score 6-10/10 Multivit/Ca Carb/B Cmplx/FA/Prenat (Nephrocaps, Renaphro) 1 capsule PO DAILY [facility] Nitroglycerin (Nitrostat) 0.4 mg SUBLINGUAL Q5M PRN PRN Reason: CHEST PAIN Ondansetron HCl (Zofran) 4 mg IV Q8H PRN PRN PRN Reason: NAUSEA/VOMITING Senna (Senokot) 1 tablet PO QHS PRN PRN PRN Reason: Constipation Sodium Chloride () 10 - 40 ml IV UD PRN PRN Reason: SALINE FLUSH Last Admin: 10/28/19 04:25 Dose: 10 ml Documented by: Timolol Maleate (Timoptic) 1 drop RIGHT EYE BID [facility] Last Admin: 10/28/19 10:31 Dose: 1 drop Documented by: Assessment/Plan All Active Problems (Last Reviewed 09/22/19 @ 08:38 by Anel Cesar) Cholelithiasis (Acute) Nausea & vomiting (Acute) Chest pain (Acute) I do not think that she is undergoing an acute gallbladder attack. Gallbladder ultrasound is pending at the present time. I think it would be appropriate for us to do an upper endoscopy on her. I have spoken to Dr. Huang and he feels that this is an appropriate test for her to undergo with little risk. I have spoken with the patient with regards to the procedure to include bleeding possible injury to the esophagus or stomach. She also understands that there is a slight risk with having propofol. But I think that this is going to give us a lot of useful information with regards to her condition being either esophagitis or peptic ulcer disease or gastritis. If her upper scope is negative then probably at some point we are going to have to evaluate her for an elective cholecystectomy. Procedure Criteria Procedure Type: Elective COVID Risk Discussion: The surgeon/proceduralist and patient have discussed in detail the risk of exposure to and/or potential harm posed by the COVID-19 virus with having a surgery/procedure at this time versus the risk of delaying the surgery/procedure. It is not possible to know either the risk of delaying the surgery or procedure or chance of getting an infection with perfect accuracy, but a joint decision was made between the patient and the surgeon/proceduralist to proceed at this time with the scheduled surgery/procedure as indicated on the consent form. Office Visits / Consults: [id number] IP Consult L4
[2019-10-28 12:26] LABS: Bedside Glucose 214 mg/dL (70-110)
--- NOTE | 2019-10-28 12:43 | CHAPLAIN ---
Type of Pastoral Visit _x__ Initial Visit ___ Follow-up Visit ___ On-call Visit ___ General Patient Visit ___ Spiritual Assessment ___ Family Conference ___ Bereavement ___ Rapid Response ___ Code Blue ___ Other (describe below) Pastoral Care Referral From _x__ Patient ___ Family ___ Nurse ___ Physician ___ Crane Oiler ___ Line Server ___ Other (describe below) Sacrament/Intervention _x__ Active listening ___ Anointing ___ Hinduism ___ Bereavement ___ Communion ___ Carlotta exploration ___ ___ Life review _x__ Prayer ___ Reconciliation ___ Sacrament of Sick _x__ Supportive presence ___ Wedding ___ Other (describe below) Pastoral Comments
--- NOTE | 2019-10-28 13:33 | DIALYSIS ---
Report from primary RN, Gage Stoddard Access: Left forearm AVF. Site benign, thrill and bruit present. Cannulated with 15 gauge needles x 2. [place] secured with tape.
--- NOTE | 2019-10-28 15:19 | CASEMGMT ---
Patient has a Healthcare Power of Animal Breeder and a Healthcare Living Will on file at [facility]. Her mother Carolina is her Power of Animal Breeder. Ely ELIZONDO MSW
--- NOTE | 2019-10-28 16:54 | DIALYSIS ---
Hemodialysis complete. 3.25 hour run, 2k bath, net fluid removed = 1800 ml. Patient tolerated HD tx well. Left forearm AVF: site benign, thrill and bruit present, needle site pressure held 10 min each. Hemostasis achieved. Report given to primary RNDemetrio.
[2019-10-28] MEDS: Aspirin 81 MG TAB.CHEW PO (17:47)
[2019-10-28] MEDS: Citalopram 20 MG Tablet PO (17:49)
[2019-10-28] MEDS: Calcium Acetate 667 MG Capsule 1334 MG PO (17:50)
[2019-10-28] MEDS: Clopidogrel Bisulfate 75 MG Tablet PO (17:50)
[2019-10-28] MEDS: Folic Acid/Vitamin B Comp W-C 1 Capsule 1 CAP PO (17:50)
[2019-10-28 18:06] LABS: Bedside Glucose 113 mg/dL (70-110)
[2019-10-28] MEDS: Atorvastatin Calcium 80 MG Tablet PO (22:14)
[2019-10-28] MEDS: Heparin Injection (Vial) 5,000 UNIT/ML VIAL 5000 UNIT SC (22:14)
[2019-10-28] MEDS: Gabapentin 300 MG Capsule PO (22:14)
[2019-10-28 23:15] LABS: Bedside Glucose 146 mg/dL (70-110)
[2019-10-29] VITALS (18 sets, daily range): BP systolic 61–133; BP diastolic 34–72; PULSE 62–84; RESP 13–18; TEMP 36–36.9; O2SAT 93–100; BMI 39.1
--- NOTE | 2019-10-29 | GASB_PTH ---
PATIENT: ADEN COOK LOC: [facility] U#:[id number] AGE/SX: 59/F ROOM: [facility] RE10/27/[address]: Dr. Ariela Nava MD : 1960 BED: 1 DIS: 10/29/2019 SPEC #: [id number] RECD: 10/29/19 13:21 STATUS: HANANE REQ #: [id number] JESUS MANUEL: 10/29/19 00:[address]: Freddie Chacon DEPT: SURGICAL PATHOLOGY RECD BY: Alfonzo Calderón ENTERED: 10/29/19 13:21 SP TYPE: Gastric Bx OTHR DR: DO Dr. Freddie Covarrubias MD Dr. Daniel Peabody, MD Dr. Ghasem E Ashelfah, MD Dr. Paul Nielsen, MD Dr. Tai Chi Kwok, MD Tissues: Gastric mucous membrane Procedures: Surgery Specimen Level IV Comments: @ Ordering doctor for SUIV edited from to @ ernesto BUTLER at 10/30/19 0852 @ Submitting doctor edited from to @ by LUKE at 10/30/19 0852 HEADER O[place] [place] DIAGNOSIS: Nausea, vomiting TISSUE SUBMITTED: Antrum biopsy for histo and H. pylori MICROSCOPIC DIAGNOSIS Antrum, biopsy: Focal minimal gastritis. See microscopic description and comment. ABRAM:jace 10/30/19 COMMENT The results of immunohistochemistry for Helicobacter pylori will be reported separately ([id number]). MICROSCOPIC DESCRIPTION Slides are reviewed. The specimen shows fragments of gastric mucosa with chronic inflammatory cell infiltrates in the lamina propria consisting of lymphocytes and plasma cells, consistent with minimal chronic gastritis. GROSS DESCRIPTION Received in fixative is one container labeled with the patient's name and designated antrum biopsy. The specimen consists of one irregular fragment of light mina soft tissue that measures 0.7 x 0.2 x 0.1 cm. The specimen is totally submitted in one cassette. / ABRAM:jace 10/29/19 TC:3 CPT: 71970
[2019-10-29 05:06] LABS: Absolute Lymphocyte Count 1.64 X10^3/uL (0.83-4.51); Absolute Neutrophil Count 2.2 X10^3/uL (2.0-7.7); Basophil# 0.03 X10^3/uL; Basophil% 0.7 % (0-1); Eosinophil# 0.19 X10^3/uL; Eosinophils% 4.1 % (0-5); Hematocrit 35.9 % (37-47); Lymphocyte # 1.64 X10^3/ul (4.0); Lymphocyte % 35.6 % (19-41); Mean Corp Hgb Conc 30.6 g/dL (32-36); Mean Corpuscular Hgb 31.8 pg (27.0-32.0); Mean Corpuscular Volume 103.8 fL (81-99); Mean Platelet Vol. 9.8 fl (6.2-12.0); Monocyte% 10.8 % (0-10); NRBC Flagged by Analyzer 0 % (0-5); Neutrophil # 2.24 X10^3/uL (2.7-7.7); Neutrophil % 48.6 % (47-70); Platelet Count 243 K/mm3 (150-450); RBC Distribution Width CV 14.3 % (11.6-14.6); RBC Distribution Width SD 54.3 fl (35.1-43.9); Red Blood Count 3.46 M/mm3 (4.2-5.4); White Blood Count 4.6 K/mm3 (4.4-11.0)
[2019-10-29 05:18] LABS: International Normalized Ratio 1.1; Prothrombin Time (Protime)PT. 13.7 SECONDS (11.7-14.9)
[2019-10-29 05:19] LABS: Partial Thromboplast Time 29.8 Seconds (24.1-36.2)
[2019-10-29 05:20] LABS: Anion Gap 8 (5-15); BUN 25 mg/dL (7-18); BUN/Creat Ratio 5.3 RATIO (10-20); Calcium,Total 8.3 mg/dL (8.5-10.1); Chloride 97 mmol/L (98-107); Creatinine, Serum 4.71 mg/dL (0.55-1.02); EST Glomerular Filtration Rate 10 mL/min (>60); Est Glom Filt Rate - Afr Amer 12 mL/min (>60); Estimated Creatinine Clearance 9.12 ml/min; Glucose 128 mg/dL (74-106); Potassium 3.7 mmol/L (3.5-5.1); Sodium Level 133 mmol/L (136-145)
--- NOTE | 2019-10-29 05:55 | EKG12_ITS ---
Test Reason : AM EKG Blood Pressure : / mmHG Vent. Rate : 067 BPM Atrial Rate : 067 BPM P-R Int : 160 ms QRS Dur : 086 ms QT Int : 464 ms P-R-T Axes : 063 -50 172 degrees QTc Int : 490 ms Normal sinus rhythm Left anterior fascicular block Left ventricular hypertrophy with repolarization abnormality Abnormal ECG When compared with ECG of 27-OCT-2019 21:50, MANUAL COMPARISON REQUIRED, DATA IS UNCONFIRMED Confirmed by SAMUEL ZARAGOZA, DESTINEE ([id number]), film and video editor MYRIAM PEREZ ([id number]) on 11/03/2019 1:20:47 PM Referred By: MONIKA Confirmed By:DESTINEE BAKER MD
[2019-10-29 06:35] LABS: Bedside Glucose 119 mg/dL (70-110)
--- NOTE | 2019-10-29 07:30 | IMM_PTH ---
PATIENT: ADEN COOK LOC: [facility] U#:[id number] AGE/SX: 59/F ROOM: [facility] RE10/27/[address]: Dr. Ariela Nava MD : 1960 BED: 1 DIS: 10/29/2019 SPEC #: [id number] RECD: 10/29/19 13:26 STATUS: SOUT REQ #: [id number] JESUS MANUEL: 10/29/19 07:[address]: Freddie Chacon DEPT: IMMUNOHISTOCHEMISTRY RECD BY: Desiree Hooks ENTERED: 10/29/19 13:26 SP TYPE: IMMUNO OTHR DR: DO Dr. Freddie Covarrubias MD Dr. Ghasem E Ashelfah, MD Dr. Paul Nielsen, MD Dr. Tai Chi Kwok, MD Tissues: Stomach, NOS Procedures: H Pylori (initial) PHYSICIAN & INSTITUTION [place] [id number] SPECIMEN INFORMATION: Tissue Source: Antrum biopsy Clinical Info: Nausea, vomiting Specimen Number: [id number] CPT code: 30434 METHODOLOGY: Deparaffinized sections of prefer/formalin-fixed tissue or PAP/DQ stained slides are incubated with monoclonal/polyclonal antibodies/oligonucleotide probes. Localization is made via biotin free immunoperoxidase method. Appropriate controls are performed and reacted as expected. Results on target cell population are indicated in the following table: RESULTS: ANTIBODY / CLONE RESULT H Pylori (polyclonal) negative These tests were developed and their performance characteristics determined by [facility]. They may not have been cleared or approved by the U.S. Food and Drug Administration. The FDA has determined that such clearance or approval is not necessary. INTERPRETATION: Antrum biopsy: Negative for Helicobacter pylori organisms. AM:jace 10/30/19
--- NOTE | 2019-10-29 07:43 | OP.EGD_ITS ---
Patient Name: Max Casanova Procedure Date: 10/29/2019 7:08 AM Date of : 1960 Age: 59 Procedure: Upper GI endoscopy Indications: Epigastric abdominal pain, Nausea with vomiting Providers: Freddie Chacon MD Medicines: See the Anesthesia note for documentation of the administered medications Patient Profile: This is a 59 year old female. Refer to note in patient chart for documentation of history and physical. Complications: No immediate complications. Procedure: Pre-Anesthesia Assessment: - Prior to the procedure, a History and Physical was performed, and patient medications and allergies were reviewed. The patient's tolerance of previous anesthesia was also reviewed. The risks and benefits of the procedure and the sedation options and risks were discussed with the patient. All questions were answered, and informed consent was obtained. Prior Anticoagulants: The patient has taken Plavix (clopidogrel), last dose was 1 day prior to procedure. ASA Grade Assessment: III - A patient with severe systemic disease. After reviewing the risks and benefits, the patient was deemed in satisfactory condition to undergo the procedure. After obtaining informed consent, the endoscope was passed under direct vision. Throughout the procedure, the patient's blood pressure, pulse, and oxygen saturations were monitored continuously. The Endoscope was introduced through the mouth, and advanced to the second part of duodenum. The upper GI endoscopy was accomplished without difficulty. The patient tolerated the procedure well. Scope In: 7:34:00 AM Scope Out: 7:37:10 AM Total Procedure Duration Time 0 hours 3 minutes 10 seconds Findings: The examined esophagus was normal. Localized moderate inflammation characterized by erythema and friability was found in the prepyloric region of the stomach. Biopsies were taken with a cold forceps for Helicobacter pylori testing. Localized mild inflammation characterized by erythema and friability was found in the duodenal bulb. No biopsies or other specimens were collected for this exam. Impression: - Normal esophagus. - Gastritis. Biopsied. - Duodenitis. No specimens collected. Recommendation: - [facility]. - Advance diet as tolerated. - Use Prilosec (omeprazole) 40 mg PO daily for 2 months. - Continue present medications. Procedure Code(s): --- Professional --- 40623, Esophagogastroduodenoscopy, flexible, transoral; with biopsy, single or multiple Diagnosis Code(s): --- Professional --- K29.70, Gastritis, unspecified, without bleeding K29.80, Duodenitis without bleeding R10.13, Epigastric pain R11.2, Nausea with vomiting, unspecified CPT copyright 2017 [employer]. All rights reserved. The codes documented in this report are preliminary and upon physician coder review may be revised to meet current compliance requirements. MD Freddie Hamlin MD 10/29/2019 7:43:22 AM This report has been signed electronically. Number of Addenda: 0 Note Initiated On: 10/29/2019 7:08 AM
--- NOTE | 2019-10-29 07:44 | OP.CCLET_ITS ---
10/29/2019 Brayden King MD [id number] [place] [place] [address] Re : Upper GI endoscopy procedure for [facility] Dear Dr. King This procedure was performed on Tuesday, October 29, 2019. My impressions and recommendations are as follows: Impressions : - Normal esophagus. - Gastritis. Biopsied. - Duodenitis. No specimens collected. Recommendations : - [facility]. - Advance diet as tolerated. - Use Prilosec (omeprazole) 40 mg PO daily for 2 months. - Continue present medications. My findings are described in the full procedure note, which is enclosed. If I can be of further assistance, please feel free to contact me at Doctor phone number(s): , Fax: [phone], Work: . Sincerely, MD Freddie Hamlin MD 10/29/2019 7:43:22 AM This report has been signed electronically.
[2019-10-29 08:02] LABS: Hemoglobin A1c 8.8 % (3.8-5.6)
--- NOTE | 2019-10-29 08:11 | EKG12_ITS ---
Test Reason : POST OP Blood Pressure : / mmHG Vent. Rate : 080 BPM Atrial Rate : 080 BPM P-R Int : 168 ms QRS Dur : 088 ms QT Int : 420 ms P-R-T Axes : 034 -60 188 degrees QTc Int : 484 ms Normal sinus rhythm Left axis deviation Left ventricular hypertrophy Marked ST abnormality, possible inferior subendocardial injury Abnormal ECG When compared with ECG of 29-OCT-2019 05:45, MANUAL COMPARISON REQUIRED, DATA IS UNCONFIRMED Confirmed by SAMUEL ZARAGOZA, DESTINEE ([id number]), assistant editor MYRIAM PEREZ ([id number]) on 11/03/2019 1:32:06 PM Referred By: BAO Confirmed By:DESTINEE BAKER MD
--- NOTE | 2019-10-29 08:50 | SUR.PHASEI ---
0825 DR ESA WHITEHEAD @ BEDSIDE. EKG REVIEWED, EKG CHANGES NOTED, PT HAS C/O CHEST PRESSURE AND NAUSEA. 0826 NITRO 0.4MG SL AND ASA 81 MG PO GIVEN PER DR ESA WHITEHEAD 0827 PCU CONTACTED, SPOKE WITH RYANNE CAFETERIA CLERK RE: CONTACTING HOSPITALIST, DR FRANK ON UNIT. SHE WOULD LET HIM KNOW , ANESTHESIA REQUESTED PHYSICIAN TO SEE PATIENT. 0832 DR MUSTAFA PAGED, INFORMED OF EKG CHANGES , CURRENT VSS, PIPE LINER NOTES NSR RATE 73, POST NITRO AND ASA. DR MUSTAFA, STATES , PT OK TO RETURN TO PCU, NO NEW ORDERS AT THIS TIME.
--- NOTE | 2019-10-29 09:58 | CASEMGMT ---
This ABDIAS CM to room with ESPINAL form at this time, explanation done-pt voices understanding and pt signed ESPINAL form at this time. Original to chart and copy to pt at this time. Pt states still lives with son and daughter and states no concerns at home at this time. Pt states normally has aides thru waiver program but has not had them since COVID started. Pt voice no further questions/concerns/needs at this time. [place]en ABDIAS PAZ
--- NOTE | 2019-10-29 10:26 | DCINST_ITS ---
- Discharge Diagnoses Current Active Problems: Current Active and Chronic Problems (Last Reviewed 10/28/19 @ 11:[address] Freddie Chacon MD) Cholelithiasis (Acute) Nausea & vomiting (Acute) Chest pain (Acute) You will use the following diet at home:: Calorie/Carbohydrate Controlled (specify 1200, 1400, etc) - 1800 edna., Cardiac, Renal (restricted protein/sodium) Your food should be the consistency of: Regular Discharge Activity: Return to Normal Activity Weight Bearing Status: Weight bearing as tolerated Call your doctor if you observe: Fever of 101 or Higher, Shortness of breath, Dizziness, Fainting spells, Chest pain, Increased palpitations (irregular heartbeat), Uncontrolled pain Allergies/Adverse Reactions: Allergies lisinopril Allergy (Verified 10/27/19 17:35) Unknown ranitidine HCl [From Zantac] Allergy (Verified 10/27/19 17:35) Hives azithromycin Adverse Reaction (Verified 10/27/19 17:35) Nausea/Vom/Diarrhea Medications to take at Discharge Gabapentin [Neurontin] 300 mg PO QHS 06/07/17 Sennosides [Senna] 8.6 mg PO QHS PRN 06/07/17 Citalopram Hydrobromide [Citalopram HBr] 30 mg PO DAILY 11/15/18 Timolol 0.5% [Timoptic] 1 drp RIGHT EYE BID 11/15/18 aspirin 81 mg chewable tablet 81 mg PO DAILY@0800 #90 tab 03/06/19 albuterol sulfate 90 mcg/actuation aerosol inhaler 1 puff INHALATION Q6H PRN PRN #1 inhaler 04/14/19 Atorvastatin Calcium 80 mg PO QHS 05/24/19 Clopidogrel Bisulfate [Clopidogrel] 75 mg PO DAILY 05/24/19 Isosorbide Mononitrate [Isosorbide Mononitrate ER] 60 mg PO UD 05/24/19 B complex with C 20-folic acid 1 mg capsule 1 cap PO DAILY 06/09/19 Insulin Glargine,Hum.rec.anlog [Basaglar Kwikpen U-100] 40 unit SQ DAILY 09/22/19 Isosorbide Mononitrate [Imdur] 90 mg PO BID #60 tab 09/22/19 carvedilol 12.5 mg tablet 12.5 mg PO BID 09/22/19 nitroglycerin 0.4 mg sublingual tablet 0.4 mg SUBLINGUAL Q5-15M PRN #25 tab 09/22/19 Ascorbic Acid [Vitamin C] 500 mg PO DAILY 10/27/19 Cholecalciferol (VIT D3) [Vitamin D3] 1,000 unit PO DAILY 10/27/19 Icosapent Ethyl [Vascepa] 1 gm PO TIDCM 10/27/19 Pantoprazole Sodium [Protonix] 40 mg PO BID #90 tab 10/29/19 Sucralfate [Carafate] 1 gm PO 4X/DAY #90 tab 10/29/19 The following prescriptions were given: Sucralfate [Carafate] 1 gm PO 4X/DAY #90 tab Transmission Status: Pending to [facility] Pantoprazole Sodium [Protonix] 40 mg PO BID #90 tab Transmission Status: Pending to [facility] Primary Care Physician: Brayden King Chi, MD [Primary Care Provider] - Please follow up with your Primary Care Physician in: 1 week. Test Results: Test results from this visit will be discussed in further detail at your follow- up appointment, if applicable. Please Follow Up With: Freddie Chacon MD When: 2 weeks. Please Follow Up With: Freddie Huang MD When: 2-4 weeks.
--- NOTE | 2019-10-29 10:28 | PCM.DC.SUM ---
Discharge Date and Diagnosis - Problem List Patient Problems: Active and Suspected Problems (Last Reviewed 10/28/19 @ 11:[address] Freddie Chacon MD) Chest pain (Acute) Cholelithiasis (Acute) Nausea & vomiting (Acute) Date of Admission: 10/27/19 Date of Discharge: 10/29/19 - Primary Discharge Diagnosis Acute Problems: Active Problems (Last Reviewed 10/28/19 @ 11:[address] Freddie Chacon MD) #1 acute non-ST elevation CA. #2 gastritis/duodenitis. #3 nausea and vomiting. - Secondary Discharge Diagnosis Chronic Problems: Chronic Problems (Last Reviewed 10/28/19 @ 11:[address] Freddie Chacon MD) History of left heart catheterization (Chronic 05/26/19) Triple vessel CAD of the LM, LAD and LCX; Widely patent stents in RCA/PDA. Widely patent SVG to OM; Widely patent KINCAID to LAD with 40% distal [place] LAD disease, not appreciably changed from cath in 12/2018. Global LV systolic dysfunction- Severe. 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) CAD in [place] artery (Chronic) Chronic kidney disease on chronic dialysis (Chronic) Glaucoma (Chronic) GERD (gastroesophageal reflux disease) (Chronic) Diabetic retinopathy (Chronic) DDD (degenerative disc disease) (Chronic) Anemia in chronic renal disease (Chronic) History of non-ST elevation myocardial infarction (NSTEMI) (Chronic) Nonrheumatic mitral (valve) insufficiency (Chronic) Secondary pulmonary arterial hypertension (Chronic) Chronic diastolic (congestive) heart failure (Chronic) 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 There is no major interval change when compared to April 06, 2017. Electronically Signed: Deion ArvinDO at 19:04 EDT Tel [phone], Service support , Chest X-Ray 10/27/19 18:35 IMPRESSION: No acute cardiopulmonary disease. Electronically Signed: Deion ArgonneDO adelaida at 18:58 EDT Tel [phone], Service support , Gallbladder Ultrasound 10/28/19 09:05 IMPRESSION: Multiple gallstones. Atrophy of the right kidney. Electronically Signed: Saman Kristina, at 11:17 EDT , Service support , Dr. Huang, cardiology. Dr. Chacon, general surgery. Operations: None Procedures: 2-D Echocardiogram, EGD, EKG Summary of Care Provided: Patient seen and examined on the day of discharge and appeared to be stable to be discharged home. She underwent upper EGD and she was found to have gastritis and duodenitis. After the procedure, she had episode of chest pain but resolved. Her vital signs were stable. The patient is a 59 year old F presented to the emergency room because of chest pain with nausea and vomiting and she was found to have elevated troponin and EKG changes. Her EKG revealed normal sinus rhythm, T wave inversion and ST segment depression in leads V4, V5 and V6. Patient had cardiac catheterization on May 2019 that revealed widely patent cardiac stents, no evidence of acute or new lesions and no interventions performed. Cardiology consulted and recommended no more intervention at this time. 2D echocardiogram revealed ejection fraction 55%, stage II diastolic function. Dr. Huang mentioned that patient symptoms could be due to gallstones or upper GI pathology. General surgery consulted and patient went for upper EGD that revealed significant severe gastritis as well as duodenitis. CT scan abdomen and pelvis without contrast revealed no acute intra-abdominal or pelvic process. Ultrasound gallbladder revealed multiple gallstones, no evidence of acute cholecystitis, CBD diameter was normal. LFT and lipase was normal. Patient was started on Protonix and Carafate. Dr. Chacon mentioned that there is no indication for urgent gallbladder surgery at this time. Patient discharged home in a stable medical condition, discharged on Protonix 40 mg p.o. twice daily, Carafate 4 times a day, continued on her previous home medications without any changes, instructed to space her Coreg and Imdur in the morning as well as in the evening because taking both medications makes her blood pressure low, plan to follow-up with general surgery in 2 weeks as outpatient, follow-up with cardiology in 2 to 4 weeks and follow-up with PCP in 1 week. Patient Problems: Active and Suspected Problems (Last Reviewed 10/28/19 @ 11:[address] Freddie Chacon MD) Chest pain (Acute) Cholelithiasis (Acute) Nausea & vomiting (Acute) - Physical Exam Vitals/I&O's: Vital Signs Temp Pulse Resp BP Pulse Ox 98.2 F 77 18 131/56 H 100 10/29/19 09:48 10/29/19 09:48 10/29/19 09:48 10/29/19 09:48 10/29/19 09:48 Oxygen Flow Rate (L/min) 2 Oxygen Delivery Method Nasal Cannula Weight: 200 lb 6.403 oz Body Mass Index (BMI) 39.1 Finger Stick Blood Glucose 275 Intake and Output for Last 24 Hours 10/27/19 10/28/19 10/29/19 23:59 23:59 23:59 Intake Total 747 / 747 1290 / 1290 0 / 0 Output Total 0 / 0 1800 / 1800 Balance 747 / 747 -510 / -510 0 / 0 General: Alert, Oriented x3, Cooperative, No apparent distress HEENT: Atraumatic, PERRLA, EOMI, Normocephalic Oral: Moist Mucosa, No Gingival or Mucosal Lesions/ Ulcerations Neck: Supple, No JVD, Negative Carotid Bruits, Trachea Midline, Thyroid Normal Size and Texture Lungs: Clear to auscultation, Normal air movement, No rhonchi, No wheeze, No rales, Diminished Cardiovascular: Regular rate, Regular Rhythm, Normal S1, Normal S2, PMI Normal Abdomen: Bowel Sounds Present, Soft, Non Tender, Non-Distended, No Hepato-splenomegaly Extremities: No clubbing, No cyanosis, No edema Skin: No rashes, No breakdown Lymphatic: No Cervical, Supraclavicular, or Inguinal Adenopathy Neurological: Cranial nerves II-XII grossly intact, Neuro grossly intact Psych/Mental Status: Normal Affect, Appropriate Laboratory Results 10/28/19 12:18: POC Glucose 214 H 10/28/19 15:55: COVID-19 (BHASKAR) Not Detected 10/28/19 17:42: POC Glucose 113 H 10/28/19 22:05: POC Glucose 146 H 10/29/19 05:00: WBC 4.6, RBC 3.46 L, Hgb 11.0 L, Hct 35.9 L, MCV 103.8 H, MCH 31.8, MCHC 30.6 L, RDW Std Deviation 54.3 H, RDW Coeff of Lauren 14.3, Plt Count 243, MPV 9.8, Immature Gran % (Auto) 0.200, Neut % (Auto) 48.6, Lymph % (Auto) 35.6, [place] % (Auto) 10.8 H, Eos % (Auto) 4.1, Baso % (Auto) 0.7, Absolute Neuts (auto) 2.2, Absolute Lymphs (auto) 1.64, Nucleated RBC % 0 10/29/19 05:00: PT 13.7, INR 1.1, APTT 29.8 10/29/19 05:00: Sodium 133 L, Potassium 3.7, Chloride 97 L, Carbon Dioxide 28.0, Anion Gap 8, BUN 25 H, Creatinine 4.71 H, Estim Creat Clear Calc 9.12, Est GFR (MDRD) Af Amer 12 L, Est GFR (MDRD) Non-Af 10 L, BUN/Creatinine Ratio 5.3 L, Glucose 128 H, Calcium 8.3 L 10/29/19 05:00: Hemoglobin A1c 8.8 H 10/29/19 06:16: POC Glucose 119 H Current Medications Albuterol Sulfate (Ventolin Aerosols) 2.5 mg INHALATION Q4H PRN PRN PRN Reason: SOB/ WHEEZING Aspirin (Aspirin, Baby) 81 mg PO DAILY@0800 [facility] Last Admin: 10/29/19 09:51 Dose: Not Given Documented by: Atorvastatin Calcium (Lipitor) 80 mg PO QHS [facility] Last Admin: 10/28/19 22:14 Dose: 80 mg Documented by: Calcium Acetate (Phoslo Gel Cap) 1,334 mg PO TIDCM [facility] Last Admin: 10/29/19 10:08 Dose: Not Given Documented by: Carvedilol (Coreg) 12.5 mg PO BID [facility] Last Admin: 10/28/19 23:05 Dose: Not Given Documented by: Cholecalciferol (Vitamin D (25mcg)) 1,000 unit PO DAILY [facility] Last Admin: 10/28/19 17:50 Dose: 1,000 unit Documented by: Citalopram Hydrobromide (Celexa) 20 mg PO DAILY [facility] Last Admin: 10/28/19 17:49 Dose: 20 mg Documented by: Clopidogrel Bisulfate (Plavix) 75 mg PO DAILY [facility] Last Admin: 10/28/19 17:50 Dose: 75 mg Documented by: Dextrose (D50w Syringe) 0 gm IV X1 PRN; Protocol PRN Reason: Hypoglycemia Gabapentin (Neurontin) 300 mg PO QHS [facility] Last Admin: 10/28/19 22:14 Dose: 300 mg Documented by: Glucagon () 1 mg IM .X1 PRN PRN Reason: Hypoglycemia Heparin Sodium (Porcine) (Heparin Na) 5,000 unit SC Q12 [facility] Last Admin: 10/28/19 22:14 Dose: 5,000 unit Documented by: Sodium Chloride () 250 mls @ 15 mls/hr IV .[id number] PRN PRN Reason: Saline Flush Sodium Chloride () 250 mls @ 15 mls/hr IV .[id number] PRN PRN Reason: Additional IVPB Infusion Insulin Glargine (Lantus (Bkc)) 20 units SC DAILY [facility] Last Admin: 10/28/19 17:56 Dose: Not Given Documented by: Insulin Human Lispro (Humalog Kwikpen (Bkc)) 0 unit SC ACHS [facility]; Protocol Last Admin: 10/29/19 03:58 Dose: Not Given Documented by: Isosorbide Mononitrate (Imdur) 60 mg PO MoWeFr@0 [facility] Last Admin: 10/27/19 23:31 Dose: 60 mg Documented by: Isosorbide Mononitrate (Imdur) 90 mg PO SuTuThSa@2200 [facility] Last Admin: 10/28/19 23:05 Dose: Not Given Documented by: Isosorbide Mononitrate (Imdur) 90 mg PO DAILY [facility] Last Admin: 10/28/19 17:51 Dose: Not Given Documented by: Morphine Sulfate () 4 mg IV Q3H PRN PRN PRN Reason: Pain Score 6-10/10 Multivit/Ca Carb/B Cmplx/FA/Prenat (Nephrocaps, Renaphro) 1 capsule PO DAILY [facility] Last Admin: 10/28/19 17:50 Dose: 1 capsule Documented by: Nitroglycerin (Nitrostat) 0.4 mg SUBLINGUAL Q5M PRN PRN Reason: CHEST PAIN Ondansetron HCl (Zofran) 4 mg IV Q8H PRN PRN PRN Reason: NAUSEA/VOMITING Pantoprazole Sodium (Protonix) 40 mg PO X1 ONE Stop: 10/29/19 10:29 Senna (Senokot) 1 tablet PO QHS PRN PRN PRN Reason: Constipation Sodium Chloride () 10 - 40 ml IV UD PRN PRN Reason: SALINE FLUSH Last Admin: 10/28/19 04:25 Dose: 10 ml Documented by: Sucralfate (Carafate) 1 gm PO X1 ONE Stop: 10/29/19 10:29 Timolol Maleate (Timoptic) 1 drop RIGHT EYE BID [facility] Last Admin: 10/28/19 22:19 Dose: 1 drop Documented by: Discharge Activity: Return to Normal Activity Weight Bearing Status: Weight bearing as tolerated Call your doctor if you observe: Fever of 101 or Higher, Shortness of breath, Dizziness, Fainting spells, Chest pain, Increased palpitations (irregular heartbeat), Uncontrolled pain Home Medications: Medications to take at Discharge Gabapentin [Neurontin] 300 mg PO QHS 06/07/17 Sennosides [Senna] 8.6 mg PO QHS PRN 06/07/17 Citalopram Hydrobromide [Citalopram HBr] 30 mg PO DAILY 11/15/18 Timolol 0.5% [Timoptic] 1 drp RIGHT EYE BID 11/15/18 aspirin 81 mg chewable tablet 81 mg PO DAILY@0800 #90 tab 03/06/19 albuterol sulfate 90 mcg/actuation aerosol inhaler 1 puff INHALATION Q6H PRN PRN #1 inhaler 12/23/19 Atorvastatin Calcium 80 mg PO QHS 05/24/19 Clopidogrel Bisulfate [Clopidogrel] 75 mg PO DAILY 05/24/19 Isosorbide Mononitrate [Isosorbide Mononitrate ER] 60 mg PO UD 05/24/19 B complex with C 20-folic acid 1 mg capsule 1 cap PO DAILY 06/09/19 Insulin Glargine,Hum.rec.anlog [Basaglar Kwikpen U-100] 40 unit SQ DAILY 09/22/19 Isosorbide Mononitrate [Imdur] 90 mg PO BID #60 tab 09/22/19 carvedilol 12.5 mg tablet 12.5 mg PO BID 09/22/19 nitroglycerin 0.4 mg sublingual tablet 0.4 mg SUBLINGUAL Q5-15M PRN #25 tab 09/22/19 Ascorbic Acid [Vitamin C] 500 mg PO DAILY 10/27/19 Cholecalciferol (VIT D3) [Vitamin D3] 1,000 unit PO DAILY 10/27/19 Icosapent Ethyl [Vascepa] 1 gm PO TIDCM 10/27/19 Pantoprazole Sodium [Protonix] 40 mg PO BID #90 tab 10/29/19 Sucralfate [Carafate] 1 gm PO 4X/DAY #90 tab 10/29/19 Following Prescrptions Were Given to Patient: Sucralfate [Carafate] 1 gm PO 4X/DAY #90 tab Transmission Status: Received by [facility] Pantoprazole Sodium [Protonix] 40 mg PO BID #90 tab Transmission Status: Received by [facility] Primary Care Physician: Brayden King Chi, MD [Primary Care Provider] - Please follow up with your Primary Care Physician in: 1 week. Please Follow Up With: Freddie Chacon MD When: 2 weeks. Please Follow Up With: Freddie Huang MD When: 2-4 weeks. Disposition: Home Minutes spent on discharge:: 29 Patient Condition:: Stable Medical Necessity - Tobacco Use Smoking Status: Former smoker Meaningful Use Info Meaningful Use Diagnoses (Choose all that apply): None applicable OBSV E&M: 84695 Observation care discharge
[2019-10-29] MEDS: Carvedilol 12.5 MG Tablet PO (10:56)
[2019-10-29] MEDS: Pantoprazole Sodium 40 MG Tablet PO (10:56)
[2019-10-29] MEDS: Timolol 0.5% 5ML OPTH.BTL 1 DRP RIGHT EYE (10:56)
[2019-10-29] MEDS: Isosorbide Mononitrate 30 MG Tablet 90 MG PO (10:57)
[2019-10-29] MEDS: Calcium Acetate 667 MG Capsule 1334 MG PO (10:57)
[2019-10-29] MEDS: Citalopram 20 MG Tablet PO (10:58)
[2019-10-29] MEDS: Folic Acid/Vitamin B Comp W-C 1 Capsule 1 CAP PO (10:58)
[2019-10-29] MEDS: Clopidogrel Bisulfate 75 MG Tablet PO (10:58)
[2019-10-29 11:10] LABS: Bedside Glucose 150 mg/dL (70-110)
--- NOTE | 2019-10-29 11:20 | PHA.DC.MC ---
Pharmacy Service has performed discharge medication reconciliation and counseling for this patient. 1. SUCRALFATE 1GM PO 4X/DAY 2. PANTOPRAZOLE 40MG PO BID The patient's discharge medication list was reviewed for discrepancies and discrepancies were resolved. Home Medications Gabapentin [Neurontin] 300 mg PO QHS 06/07/17 Sennosides [Senna] 8.6 mg PO QHS PRN 06/07/17 Citalopram Hydrobromide [Citalopram HBr] 30 mg PO DAILY 11/15/18 Timolol 0.5% [Timoptic] 1 drp RIGHT EYE BID 11/15/18 aspirin 81 mg chewable tablet 81 mg PO DAILY@0800 #90 tab 03/06/19 albuterol sulfate 90 mcg/actuation aerosol inhaler 1 puff INHALATION Q6H PRN PRN #1 inhaler 04/14/19 Atorvastatin Calcium 80 mg PO QHS 05/24/19 Clopidogrel Bisulfate [Clopidogrel] 75 mg PO DAILY 05/24/19 Isosorbide Mononitrate [Isosorbide Mononitrate ER] 60 mg PO UD 05/24/19 B complex with C 20-folic acid 1 mg capsule 1 cap PO DAILY 06/09/19 Insulin Glargine,Hum.rec.anlog [Basaglar Kwikpen U-100] 40 unit SQ DAILY 09/22/19 Isosorbide Mononitrate [Imdur] 90 mg PO BID #60 tab 09/22/19 carvedilol 12.5 mg tablet 12.5 mg PO BID 09/22/19 nitroglycerin 0.4 mg sublingual tablet 0.4 mg SUBLINGUAL Q5-15M PRN #25 tab 09/22/19 Ascorbic Acid [Vitamin C] 500 mg PO DAILY 10/27/19 Cholecalciferol (VIT D3) [Vitamin D3] 1,000 unit PO DAILY 10/27/19 Icosapent Ethyl [Vascepa] 1 gm PO TIDCM 10/27/19 Pantoprazole Sodium [Protonix] 40 mg PO BID #90 tab 10/29/19 Sucralfate [Carafate] 1 gm PO 4X/DAY #90 tab 10/29/19 The patient was counseled on the following discharge medications and changes in medications for homegoing were reviewed. The Reason for Use, instructions for use, and potential side effects were reviewed for all new medications. The patient's questions regarding all of their medications were answered. The patient was able to verbally demonstrate an understanding of their discharge medications. Patient was counseled by student financial aid managerMelissa.
[2019-10-29] MEDS: Sucralfate 1 GM Tablet PO (14:10)
[2019-10-29 14:17] LABS: Bedside Glucose 195 mg/dL (70-110)
== END 2019-10-29 10:27 | disposition home or self-care (01) ==
LOC: ED 18:06 → PCU 20:53
PROVIDERS: Anesthesiology; Surgery; Admitting Provider Family Medicine; Emergency Provider Emergency Medicine; PCP Family Medicine Geriatric Medicine; Visit Provider Hospitalist
PROC: 0DJ08ZZ Inspection of Upper Intestinal Tract, Via Natural or Artificial Opening Endoscopic (ICD-10-PCS; CPT 43235; principal; 2019-10-29 07:25)
DX: I21.4 Non-ST elevation (NSTEMI) myocardial infarction (principal); I25.10 Atherosclerotic heart disease of native coronary artery without angina pectoris; K29.70 Gastritis, unspecified, without bleeding; K29.80 Duodenitis without bleeding; K80.20 Calculus of gallbladder without cholecystitis without obstruction; N18.6 End stage renal disease; E11.22 Type 2 diabetes mellitus with diabetic chronic kidney disease; I13.2 Hypertensive heart and chronic kidney disease with heart failure and with stage 5 chronic kidney disease, or end stage renal disease; K21.9 Gastro-esophageal reflux disease without esophagitis; E11.319 Type 2 diabetes mellitus with unspecified diabetic retinopathy without macular edema; I25.2 Old myocardial infarction; E66.01 Morbid (severe) obesity due to excess calories; I50.32 Chronic diastolic (congestive) heart failure; I27.21 Secondary pulmonary arterial hypertension; D63.1 Anemia in chronic kidney disease; Z68.39 Body mass index [BMI] 39.0-39.9, adult; E78.5 Hyperlipidemia, unspecified; J44.9 Chronic obstructive pulmonary disease, unspecified; G47.33 Obstructive sleep apnea (adult) (pediatric); F41.9 Anxiety disorder, unspecified; F32.9 Major depressive disorder, single episode, unspecified; N25.81 Secondary hyperparathyroidism of renal origin; Z99.2 Dependence on renal dialysis; Z95.5 Presence of coronary angioplasty implant and graft; Z95.1 Presence of aortocoronary bypass graft; Z79.899 Other long term (current) drug therapy; Z79.82 Long term (current) use of aspirin; Z79.4 Long term (current) use of insulin; Z79.02 Long term (current) use of antithrombotics/antiplatelets; Z87.891 Personal history of nicotine dependence
CPT/HCPCS: 43239; 36415; 71045; 74176; 76705; 80048; 80053; 82962; 83036; 83690; 84484; 85025; 85610; 85730; 87635; 88305; 88342; 90937; 93005; 93306; 94799; 96361; 96372; 96374; 96375; 97802; 99218; 99285; G2023; J7050; J7120; A4216; G0257; G0378; J2405; U0003

== ENCOUNTER 2019-10-30 17:51 | Outpatient (RCR) | payer MEDICARE, MEDICAID, SELFPAY ==
[2019-06-04 11:27] VITALS: BMI 37.3
[2019-06-09 13:17] VITALS: BMI 38.1
[2019-10-29 06:19] VITALS: BMI 39.1
== END 2019-11-21 23:59 ==
LOC: DC 17:51
PROVIDERS: Family Provider Family Medicine Geriatric Medicine; PCP Family Medicine Geriatric Medicine; Referring Provider Internal Medicine Cardiovascular Disease; Visit Provider Internal Medicine Cardiovascular Disease
DX: Z71.3 Dietary counseling and surveillance (principal); E11.22 Type 2 diabetes mellitus with diabetic chronic kidney disease; I12.0 Hypertensive chronic kidney disease with stage 5 chronic kidney disease or end stage renal disease; N18.6 End stage renal disease; N25.81 Secondary hyperparathyroidism of renal origin; E87.6 Hypokalemia; E66.01 Morbid (severe) obesity due to excess calories; Z99.2 Dependence on renal dialysis

== ENCOUNTER 2019-11-01 20:02 | Inpatient (IN) | payer MEDICARE, MEDICAID, SELFPAY ==
[2019-06-04 11:27] VITALS: BMI 37.3
[2019-10-29 06:19] VITALS: BMI 39.1
[2019-11-01] VITALS (7 sets, daily range): BP systolic 130–165; BP diastolic 65–81; PULSE 80–89; RESP 18–24; TEMP 36.3–37; O2SAT 100; BMI 40.6; BMI 39.4
--- NOTE | 2019-11-01 20:14 | EKG12_ITS ---
Test Reason : CP ADMISSION Blood Pressure : / mmHG Vent. Rate : 078 BPM Atrial Rate : 078 BPM P-R Int : 166 ms QRS Dur : 084 ms QT Int : 438 ms P-R-T Axes : 070 -49 141 degrees QTc Int : 499 ms Normal sinus rhythm Left axis deviation Left ventricular hypertrophy ST & T wave abnormality, consider lateral ischemia Prolonged QT Abnormal ECG When compared with ECG of 29-OCT-2019 08:14, MANUAL COMPARISON REQUIRED, DATA IS UNCONFIRMED Confirmed by SAMUEL ZARAGOZA, DESTINEE ([id number]), copy editor MYRIAM PEREZ ([id number]) on 11/04/2019 10:18:04 AM Referred By: Angelina Langford Confirmed By:DESTINEE BAKER MD
--- NOTE | 2019-11-01 20:25 | ED.DCSUM_ITS ---
History of Present Illness Chief Complaint: Chest Pain Informant: Patient Narrative: Patient is a 59-year-old female who presents to the emergency department for substernal chest pain that started around 2 PM today. She currently rates the pain as an 8 out of 10. She tried taking nitro for this pain but this did not help. She does have a history of heart attacks in the past requiring stents and bypass. She has been feeling short of breath. She has been nauseous and vomiting multiple times. She denies any leg swelling or calf pain. No abdominal pain or back pain. She denies any lightheadedness or near syncopal episodes. No recent illness including any cough, cold, congestion. No fevers or chills. She does not know any aggravating or relieving factors. Patient was just hospitalized for similar symptoms this past week. She had echocardiogram which showed a EF of 55% with diastolic failure. She previously had a heart catheterization in May of this year. They were concerned for possible GI cause to her chest pain and nausea/vomiting. They did a ultrasound which did not show any evidence of cholecystitis but there were cholelithiasis. She is currently on dialysis Sunday, , Sunday. She did have her dialysis today. She states she has not taken some of her medications today. Past Medical History - Allergies and Home Meds Allergies/Adverse Reactions: Allergies lisinopril Allergy (Verified 10/27/19 17:35) Unknown ranitidine HCl [From Zantac] Allergy (Verified 10/27/19 17:35) Hives azithromycin Adverse Reaction (Verified 10/27/19 17:35) Nausea/Vom/Diarrhea Prior records reviewed: Yes Past Medical History: - - CAD, diabetes, hypertension, hyperlipidemia, CKD Surgical History: angioplasty, cataract, coronary bypass surgery - CABG x 3., hysterectomy, - - AVF placement, back surgery. Smoking Status: Former smoker - Family History Paternal Family History: Family History (Last Reviewed 09/22/19 @ 08:38 by Anel Cesar) Father Heart disease Hypertension Prostate cancer Mother Hypertension Family History: Reports: Cancer - prostate, Heart Disease, Hypertension Sibling Family History: Family History (Last Reviewed 09/22/19 @ 08:38 by Anel Cesar) Father Heart disease Hypertension Prostate cancer Mother Hypertension Family History: Reports: Diabetes Maternal Family History: Family History (Last Reviewed 09/22/19 @ 08:38 by Anel Cesar) Father Heart disease Hypertension Prostate cancer Mother Hypertension Family History: Reports: Hypertension Review of Systems General: Denies: Chills, Fever, Sweats Eyes: Denies: Visual changes - bilaterally, Diplopia ENT: Denies: Rhinorrhea, Sore throat Cardiovascular: Reports: Chest pain. Denies: Palpitations Respiratory: Reports: Dyspnea. Denies: Cough, Dyspnea on exertion Gastrointestinal: Reports: Nausea, Vomiting. Denies: Abdominal pain, Diarrhea, Melena, Hematochezia Genitourinary: Denies: Dysuria, Hematuria, Frequency Musculoskeletal: Denies: Back pain, Extremity Pain Skin: Denies: Rash, Wounds Neurological: Denies: Headache, Weakness, Numbness Physical Exam Vital Signs/Narrative: Vital Signs Temp Pulse Resp BP Pulse Ox 11/01/19 20:14 100 11/01/19 20:08 97.4 F L 82 24 H 130/65 H 100 Inital Vital Signs reviewed: Yes General: Well nourished, Well developed, - - Patient having dry heaving throughout exam Head: Normocephalic, Atraumatic Eyes: Perrl, EOMI ENT: Moist mucous membranes, No rhinorrhea Neck: Supple, Nontender Cardiovascular: Regular rate, Regular rhythm, No murmurs Respiratory: No distress, CTA bilaterally, Chest nontender Abdomen: Soft, Nontender, Nondistended, Normal bowel sounds Back: Nontender, Normal Inspection Extremities: Nontender, No edema Skin: Normal color, No rash Neurological: Alert, Oriented x3, Cranial nerves II-XII grossly intact, Normal Strength, Normal Sensation Psychological: Normal affect, Normal Mood Diagnostic/Tx/Re-eval - EKG Initial EKG Interpretation: - - Rate of 83 bpm in sinus rhythm. QTC of 481. Left axis deviation. She does have ST depressions and T wave inversions in lead I, 2, aVL. He also has ST depressions in the lateral leads. Prior EKG for comparison which was performed on October 29, 2019 had very similar appearance with the ST depressions and T wave changes. - Medical Decision Making Patient presents to the emergency department for chest pain that is associated with nausea vomiting. She took nitro which did not help. EKG obtained which showed some depressions in the lateral leads although this was present on the previous EKG. Basic lab work being obtained. Will treat symptomatically. Patient's pain was relieved well with the morphine. She is starting to feel better at this time. She has been stable throughout ED stay. With a history of chest pain, EKG changes and significant past medical history she is high risk and needs to be followed in the hospital setting. She understands and is agreeable with this plan. Will give dose of aspirin as she did not take her home medication. ED Disposition - Plan for ED Patient: Disposition: Acute Care Hospital [facility] Diagnosis: Chest pain, Nausea and vomiting
--- NOTE | 2019-11-01 20:28 | RAD_ITS ---
STUDY: X-RAY CHEST REASON FOR EXAM: Female, 59 years old. CHEST PAIN, HX OF HTN, CABGx2, [place], CHF -- ON DIALYSIS FOR KIDNEY DISEASE TECHNIQUE: Frontal view of the chest COMPARISON: October 27, 2019, September 22, 2019 FINDINGS: There is moderate cardiomegaly and mild pulmonary edema. Basilar interstitial markings are increased. There is no pneumothorax or pleural effusions. Sternotomy wires are present. Osseous structures are intact with dorsal cervical cierra fixation. Appearance is stable since prior. RAD/Chest 1 View (Portable) IMPRESSION: Cardiomegaly, mild pulmonary edema. Electronically Signed: Darby Clifton, at 20:42 EDT Tel , Service support ,
[2019-11-01 20:35] LABS: Absolute Lymphocyte Count 1.48 X10^3/uL (0.83-4.51); Absolute Neutrophil Count 3.1 X10^3/uL (2.0-7.7); Basophil# 0.03 X10^3/uL; Basophil% 0.6 % (0-1); Eosinophil# 0.19 X10^3/uL; Eosinophils% 3.5 % (0-5); Hematocrit 36.5 % (37-47); Hemoglobin 11.5 g/dL (12.0-15.0); Lymphocyte # 1.48 X10^3/ul (4.0); Lymphocyte % 27.2 % (19-41); Mean Corp Hgb Conc 31.5 g/dL (32-36); Mean Corpuscular Hgb 31.9 pg (27.0-32.0); Mean Corpuscular Volume 101.1 fL (81-99); Mean Platelet Vol. 10.2 fl (6.2-12.0); Monocyte# 0.59 X10^3/uL; Monocyte% 10.8 % (0-10); NRBC Flagged by Analyzer 0 % (0-5); Neutrophil # 3.13 X10^3/uL (2.7-7.7); Neutrophil % 57.5 % (47-70); Platelet Count 267 K/mm3 (150-450); RBC Distribution Width CV 14.2 % (11.6-14.6); RBC Distribution Width SD 53.1 fl (35.1-43.9); Red Blood Count 3.61 M/mm3 (4.2-5.4); White Blood Count 5.4 K/mm3 (4.4-11.0)
[2019-11-01] MEDS: Ondansetron 4 MG/2 ML Vial IV (20:49)
[2019-11-01 21:02] LABS: Anion Gap 5 (5-15); BUN 20 mg/dL (7-18); BUN/Creat Ratio 5.3 RATIO (10-20); Calcium,Total 9.3 mg/dL (8.5-10.1); Chloride 100 mmol/L (98-107); Creatinine, Serum 3.79 mg/dL (0.55-1.02); EST Glomerular Filtration Rate 13 mL/min (>60); Est Glom Filt Rate - Afr Amer 16 mL/min (>60); Estimated Creatinine Clearance 11.34 ml/min; Glucose 317 mg/dL (74-106); Magnesium 2.3 mg/dL (1.6-2.6); Potassium 4.6 mmol/L (3.5-5.1); Sodium Level 138 mmol/L (136-145)
[2019-11-01] MEDS: Morphine 4 MG/ML Syringe IV (21:04)
[2019-11-01 21:08] LABS: AST(SGOT) 22 U/L (15-37); Alanine Aminotransfer ALT/SGPT 27 U/L (13-56); Albumin, Serum 3.5 g/dL (3.2-5.0); Alkaline Phosphatase 112 U/L (45-117); Bilirubin, Direct 0.13 mg/dL (0.00-0.30); Globulin 4.1 g/dL (2.2-4.2); Protein, Total 7.6 g/dL (6.4-8.2)
--- NOTE | 2019-11-01 21:20 | HP.PCM_ITS ---
Problem List (1) Chest pain Status: Acute Qualifiers: Chest pain type: unspecified Qualified Code(s): R07.9 - Chest pain, unspecified (2) CAD in [place] artery Status: Chronic (3) Diabetic retinopathy Status: Chronic Qualifiers: Diabetes mellitus type: type 2 Diabetic retinopathy severity: with unspecified retinopathy severity Diabetes mellitus macular edema: macular edema presence unspecified Laterality: unspecified laterality Qualified Code(s): E11.319 - Type 2 diabetes mellitus with unspecified diabetic retinopathy without macular edema (4) Chronic diastolic (congestive) heart failure Status: Chronic (5) Morbid obesity Status: Chronic (6) Diabetes mellitus type 2 in obese Status: Chronic (7) End-stage renal disease on hemodialysis Status: Chronic (8) Hypertension Status: Chronic Qualifiers: Hypertension type: essential hypertension Qualified Code(s): I10 - Essential (primary) hypertension (9) HLD (hyperlipidemia) Status: Chronic Qualifiers: Hyperlipidemia type: unspecified Qualified Code(s): E78.5 - Hyperlipidemia, unspecified (10) COPD (chronic obstructive pulmonary disease) Status: Chronic Qualifiers: COPD type: unspecified COPD Qualified Code(s): J44.9 - Chronic obstructive pulmonary disease, unspecified (11) CLAUDIO (obstructive sleep apnea) Status: Chronic Comment: 17/11 cmH2O History of Present Illness Date of Admission: 11/01/19 Chief Complaint: Abdominal pain, chest pain, vomiting The patient is a 59 year old F with multiple comorbidities including ESRD on hemodialysis, CAD status post stents, chronic systolic CHF, type II DM was recently admitted on 10/27/19 and discharged on 10/29/19 with acute non-ST elevation DE, recently diagnosed gastritis/duodenitis. She comes in with similar complaints of substernal, nonradiating chest discomfort. This is usually related to meals. Associated with diaphoresis and relieved sometimes with vomiting. Since her discharge, patient states that she has still not been well, has been vomiting. She had had dialysis today. Vitals in the ED showed patient 97.4F, heart rate 82, blood pressure 130/65, respiratory 24, SPO2 100% on room air. WBC count of 5.4, hemoglobin 11.5, platelet count 267, sodium 138, potassium 4.6, chloride 100, carbon 33, BUN 20, creatinine 3.79, magnesium 2.3, LFTs are unremarkable. Chest x-ray showed cardiomegaly, mild pulmonary edema. Past Medical History Past Medical History (Chronic Problems): Chronic Problems (Last Reviewed 10/28/19 @ 11:[address] Freddie Chacon MD) History of left heart catheterization (Chronic 05/26/19) Triple vessel CAD of the LM, LAD and LCX; Widely patent stents in RCA/PDA. Widely patent SVG to OM; Widely patent KINCAID to LAD with 40% distal [place] LAD disease, not appreciably changed from cath in 12/2018. Global LV systolic dysfunction- Severe. Per LHC done @ [facility] per DJN LVEF: by LV gram 20-25 % Depressed Left Ventricular systolic function - Severe Elevated Left Ventricular End Diastolic Pressure Chronic kidney disease with end stage renal failure on dialysis (Chronic) CAD in [place] artery (Chronic) Chronic kidney disease on chronic dialysis (Chronic) Glaucoma (Chronic) GERD (gastroesophageal reflux disease) (Chronic) Diabetic retinopathy (Chronic) DDD (degenerative disc disease) (Chronic) Anemia in chronic renal disease (Chronic) History of non-ST elevation myocardial infarction (NSTEMI) (Chronic) Nonrheumatic mitral (valve) insufficiency (Chronic) Secondary pulmonary arterial hypertension (Chronic) Chronic diastolic (congestive) heart failure (Chronic) 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) CABG x3- KINCAID-LAD, SVG-CX, SVG-RCA 06/25/14 @ [facility] Morbid obesity (Chronic) Diabetes mellitus type 2 in obese (Chronic) End-stage renal disease on hemodialysis (Chronic) Hypertension (Chronic) HLD (hyperlipidemia) (Chronic) COPD (chronic obstructive pulmonary disease) (Chronic) CLAUDIO (obstructive sleep apnea) (Chronic) 17/11 cmH2O Secondary hyperparathyroidism of renal origin (Chronic) Medical History: Medical History (Last Reviewed 10/28/19 @ 11:[address] 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) I25.728 CABG x3- KINCAID-LAD, SVG-CX, SVG-RCA 06/25/14 @ [facility] Diabetes mellitus type 2 in obese (Chronic) E11.9, E66.9 End-stage renal disease on hemodialysis (Chronic) N18.6, Z99.2 Hypertension (Chronic) I10 HLD (hyperlipidemia) (Chronic) E78.5 COPD (chronic obstructive pulmonary disease) (Chronic) J44.9 CLAUDIO (obstructive sleep apnea) (Chronic) G47.33 17/11 cmH2O Secondary hyperparathyroidism of renal origin (Chronic) N25.81 Arteriovenous fistula stenosis (Inactive) T82.858A Allergies lisinopril Allergy (Verified 10/27/19 17:35) Unknown ranitidine HCl [From Zantac] Allergy (Verified 10/27/19 17:35) Hives azithromycin Adverse Reaction (Verified 10/27/19 17:35) Nausea/Vom/Diarrhea Home Medications: Ambulatory Orders Medication Instructions Recorded Gabapentin [Neurontin] 300 mg PO QHS 06/07/17 Sennosides [Senna] 8.6 mg PO QHS PRN 06/07/17 Citalopram Hydrobromide 30 mg PO DAILY 11/15/18 [Citalopram HBr] Timolol 0.5% [Timoptic] 1 drp RIGHT EYE BID 11/15/18 aspirin 81 mg chewable tablet 81 mg PO DAILY@0800 #90 tab 03/06/19 albuterol sulfate 90 mcg/actuation 1 puff INHALATION Q6H PRN PRN #1 04/14/19 aerosol inhaler inhaler Atorvastatin Calcium 80 mg PO QHS 05/24/19 Clopidogrel Bisulfate [Clopidogrel] 75 mg PO DAILY 05/24/19 Isosorbide Mononitrate [Isosorbide 60 mg PO UD 05/24/19 Mononitrate ER] B complex with C 20-folic acid 1 1 cap PO DAILY 06/09/19 mg capsule Insulin Glargine,Hum.rec.anlog 40 unit SQ DAILY 09/22/19 [Basaglar Kwikpen U-100] Isosorbide Mononitrate [Imdur] 90 mg PO BID #60 tab 09/22/19 carvedilol 12.5 mg tablet 12.5 mg PO BID 09/22/19 nitroglycerin 0.4 mg sublingual 0.4 mg SUBLINGUAL Q5-15M PRN #25 09/22/19 tablet tab Ascorbic Acid [Vitamin C] 500 mg PO DAILY 10/27/19 Cholecalciferol (VIT D3) [Vitamin 1,000 unit PO DAILY 10/27/19 D3] Icosapent Ethyl [Vascepa] 1 gm PO TIDCM 10/27/19 Sucralfate [Carafate] 1 gm PO 4X/DAY #90 tab 10/29/19 Pantoprazole Sodium [Protonix] 40 mg PO BID 11/02/19 Surgical History: Surgical History (Last Reviewed 10/28/19 @ 11:[address] Freddie Chacon MD) History of left heart catheterization (Chronic) Onset Date: 05/26/19 Z98.890 Triple vessel CAD of the LM, LAD and LCX; Widely patent stents in RCA/PDA. Widely patent SVG to OM; Widely patent KINCAID to LAD with 40% distal [place] LAD disease, not appreciably changed from cath in 12/2018. Global LV systolic dysfunction- Severe. Per LHC done @ [facility] per DJN LVEF: by LV gram 20-25 % Depressed Left Ventricular systolic function - Severe Elevated Left Ventricular End Diastolic Pressure Aortocoronary bypass status (Inactive) Onset Date: 06/25/14 Z95.1 CABG x3- KINCAID-LAD, SVG-CX, SVG-RCA 06/25/14 @ [facility] History of cataract surgery (Inactive) Z98.49 History of hysterectomy (Inactive) Z90.710 Postsurgical percutaneous transluminal coronary angioplasty (PTCA) status (Inactive) Onset Date: 02/18/19 Z98.61 06/12/2017:Triple vessel CAD of the LM, LCX, LAD; Persistent distal anastamotic lesion from SVG to OM#2; Possibly signifcant ischemia in DIAG branch downstream from critical LM lesion. Successful PCI with PTCA to the DISTAL ANASTOMOTIC SITE OF SVG TO OM WITH 1.5, THEN 2.0 BALLOON; 85%-->10%, NO DISSECTION OR PERFORATION. No additional stenting performed out of concern for restricting retrograde blood flow to [place] AV LCX, as well as lack of anginal symptoms during prolonged balloon inflation. Culprit artery may be [place] DIAG#1 due to LM disease, but to correct LM disease may jeopardize patent KINCAID. 02/18/2019:Triple vessel CAD of the LAD, LCX, RCA; Widely patent KINCAID to LAD; Widely patent SVG to OM with well healed distal SVG anastomitic site from previous PCI/POBA. Successful PTCA/MIGUEL distal RCA with a 2.25 x 16 Promus Synergy, 75%-->0%, no dissection. Pt had identical chest pressure during stent deployment. Successful PTCA/MIGUEL Proximal RCA with a 2.5 x 20 Promus Synergy, post dilated throughout with a 2.5 x 8 NC Balloon; 75%-->0%, no dissection. 02/20/2019:Successful PTCA/MIGUEL distal RCA with a 2.25 x 16 Promus Synergy stent at 8ATM, then inflated to 12 [place] in proximal stent to insure proper appoistion with previously placed distal RCA stent. Successful PCI with PTCA to the proximal/ostial RCA to insure that no recently placed stent struts were crimped during this procedure. Not a true STEMI; Pt had ACS with recent stenting 2 days ago with dynamic ECG changes without overt ST Elevation. angioplasty of artriovenous fistula (Inactive) Surgical History: angioplasty, cataract, coronary bypass surgery - CABG x 3., hysterectomy, - - AVF placement, back surgery. 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 Smoking Status: Former smoker Alcohol: None - *Family History Paternal Family History: Family History (Last Reviewed 09/22/19 @ 08:38 by Anel Cesar) Father Heart disease Hypertension Prostate cancer Mother Hypertension History Items: Cancer - prostate, Heart Disease, Hypertension Sibling Family History: Family History (Last Reviewed 09/22/19 @ 08:38 by Anel Cesar) Father Heart disease Hypertension Prostate cancer Mother Hypertension History Items: Diabetes Maternal Family History: Family History (Last Reviewed 09/22/19 @ 08:38 by Anel Cesar) Father Heart disease Hypertension Prostate cancer Mother Hypertension History Items: Hypertension Review of Systems Constitutional: Reports: Weakness, Fatigue. Denies: Anorexia, Chills, Fever, Night Sweats, Malaise, Weight Change Eyes: Denies: Blurred vision, Cataracts, Conjunctivae Inflammation, Pain, Redness HEENT: Denies: Difficulty Hearing, Difficulty Swallowing, Head Aches, Hearing Changes, Sinus Congestion, Sinus Drainage Cardiovascular: Reports: Chest Pain, Chest Pressure, Chest Tightness. Denies: Light Headedness, Orthopnea, Palpitations, Paroxysmal Noc. Dyspnea Respiratory: Reports: Shortness of Breath, Shortness of breath at rest, Shortness of breath upon exertion. Denies: Cough, Hemoptysis, Sputum production Gastrointestinal: Reports: Vomiting. Denies: Abdominal Pain, Constipation, Diarrhea, Hematemesis, Hematochezia, Nausea Genitourinary: Denies: Dysuria, Frequency, Incontinence, Nocturia Musculoskeletal: Denies: Joint Pain, Joint stiffness, Joint swelling, Joint Tenderness Skin: Denies: Pruritis, Rash, Wounds Neurological: Denies: Difficulty swallowing, Focal weakness, Numbness, Tingling Psychiatric: Denies: Anxiety, Depression, Homicidal Ideations, Suicidal Ideations Hematologic/ Lymphatic: Denies: Easy Bruising, Easy Bleeding VTE Information - Inpt Only VTE Present on Admission: No VTE Pharm Prophylaxis ordered?: Yes Patient Problems: Active and Suspected Problems (Last Reviewed 10/28/19 @ 11:[address] Freddie Chacon MD) Chest pain (Acute) Nausea & vomiting (Acute) - Physical Exam Vitals/I&O's: Vital Signs Temp Pulse Resp BP Pulse Ox 97.4 F L 80 20 H 165/77 H 100 11/01/19 20:08 11/01/19 21:11 11/01/19 21:11 11/01/19 21:11 11/01/19 21:11 Oxygen Flow Rate (L/min) 2 Oxygen Delivery Method Room Air Weight: 94.5 kg Body Mass Index (BMI) 40.6 Finger Stick Blood Glucose 275 General: Alert, Oriented x3, Cooperative, No apparent distress HEENT: Atraumatic, PERRLA, EOMI, Normocephalic Oral: Moist Mucosa Neck: Supple Lungs: Diminished - especially at lung bases Cardiovascular: Regular rate, Regular Rhythm, Normal S1, Normal S2, No murmurs Abdomen: Bowel Sounds Present, Soft, Non Tender, Non-Distended, No Hepato- splenomegaly Extremities: No edema Skin: No rashes, No breakdown Musculoskeletal: No Tenderness to Palpation of Joints or Extremities Neurological: Cranial nerves II-XII grossly intact Psych/Mental Status: Normal Affect, Appropriate Laboratory Results 11/01/19 20:28: WBC 5.4, RBC 3.61 L, Hgb 11.5 L, Hct 36.5 L, MCV 101.1 H, MCH 31.9, MCHC 31.5 L, RDW Std Deviation 53.1 H, RDW Coeff of Lauren 14.2, Plt Count 267, MPV 10.2, Immature Gran % (Auto) 0.400, Neut % (Auto) 57.5, Lymph % (Auto) 27.2, [place] % (Auto) 10.8 H, Eos % (Auto) 3.5, Baso % (Auto) 0.6, Absolute Neuts (auto) 3.1, Absolute Lymphs (auto) 1.48, Nucleated RBC % 0 11/01/19 20:28: Sodium 138, Potassium 4.6, Chloride 100, Carbon Dioxide 33.0 H, Anion Gap 5, BUN 20 H, Creatinine 3.79 H, Estim Creat Clear Calc 11.34, Est GFR (MDRD) Af Amer 16 L, Est GFR (MDRD) Non-Af 13 L, BUN/Creatinine Ratio 5.3 L, Glucose 317 H, Calcium 9.3, Magnesium 2.3, Troponin I 0.189 H 11/01/19 20:28: Total Bilirubin 0.30, Direct Bilirubin 0.13, AST 22, ALT 27, Alkaline Phosphatase 112, Total Protein 7.6, Albumin 3.5, Globulin 4.1 Assessment/Plan All Active Problems (Last Reviewed 10/28/19 @ 11:[address] Freddie Chacon MD) Chest pain (Acute) Cholelithiasis (Acute) Nausea & vomiting (Acute) 59 year old F with multiple comorbidities including ESRD on hemodialysis, CAD status post stents, recently discharged on 10/29/19 comes in with substernal chest pain, diaphoresis and vomiting. 1. Chest pain, atypical, patient with similar presentation in the last admission( 10/27/19 - 10/29/19) -managed for acute NSTEMI, gastritis/duodenitis Cardiology was consulted, no interventions were recommended. Patient had a GI work-up which showed severe gastritis and duodenitis. Ultrasound of the gallbl adder showed multiple gallstones without acute cholecystitis. Plan was for a future cholecystectomy. Initial troponin in this admission is 0.189. EKG is unchanged compared to previous -more sinus rhythm, T wave inversions in 1, 2, aVL V4, V5, V6 Will admit to PCU, monitor on telemetry, trend troponins continue on IV PPI, sucralfate, Mylanta as needed General surgery consult for further recommendations 2. ESRD on hemodialysis, -Sun, nephrology consult 3. CAD status post CABG, status post stents, continue aspirin, statins, beta- ivy, Plavix, nitrates 4. Type II DM, continue on home Lantus, insulin sliding scale with Accu-Cheks, ADA diet 5. Hypertension, controlled, continue on home carvedilol 6. COPD, stable, no signs of acute exacerbation, continue with as needed breath ing treatments 7. Hyperlipidemia, continue on statins 8. DVT prophylaxis -SCDs Inpatient E&M: [id number] Init Hosp L3
[2019-11-01 22:45] LABS: Bedside Glucose 276 mg/dL (70-110)
[2019-11-01] MEDS: Aspirin 81 MG TAB.CHEW PO (23:22)
--- NOTE | 2019-11-01 23:46 | EKG12_ITS ---
Test Reason : CP Blood Pressure : / mmHG Vent. Rate : 083 BPM Atrial Rate : 083 BPM P-R Int : 180 ms QRS Dur : 090 ms QT Int : 410 ms P-R-T Axes : 071 -58 192 degrees QTc Int : 481 ms Normal sinus rhythm Possible Left atrial enlargement Left anterior fascicular block Left ventricular hypertrophy Marked ST abnormality, possible inferior subendocardial injury Prolonged QT Abnormal ECG Confirmed by SAMUEL ZARAGOZA, DESTINEE ([id number]), fashion editor MYRIAM PEREZ ([id number]) on 11/03/2019 1:10:51 PM Referred By: Angelina Langford Confirmed By:DESTINEE BAKER MD
[2019-11-01] MEDS: Isosorbide Mononitrate 30 MG Tablet 90 MG PO (23:53)
[2019-11-01] MEDS: Sucralfate 1 GM Tablet PO (23:53)
[2019-11-01] MEDS: Gabapentin 300 MG Capsule PO (23:54)
[2019-11-01] MEDS: Timolol 0.5% 5ML OPTH.BTL 1 DRP RIGHT EYE (23:54)
[2019-11-01] MEDS: Carvedilol 12.5 MG Tablet PO (23:54)
[2019-11-01] MEDS: Atorvastatin Calcium 80 MG Tablet PO (23:54)
[2019-11-02] VITALS (11 sets, daily range): BP systolic 94–118; BP diastolic 44–62; PULSE 59–68; RESP 18; TEMP 36.5–36.9; O2SAT 94–100
[2019-11-02 03:24] LABS: Absolute Lymphocyte Count 1.53 X10^3/uL (0.83-4.51); Absolute Neutrophil Count 3.8 X10^3/uL (2.0-7.7); Basophil# 0.04 X10^3/uL; Basophil% 0.6 % (0-1); Eosinophils% 3.2 % (0-5); Hematocrit 31.3 % (37-47); Hemoglobin 9.8 g/dL (12.0-15.0); Lymphocyte # 1.53 X10^3/ul (4.0); Lymphocyte % 24.4 % (19-41); Mean Corp Hgb Conc 31.3 g/dL (32-36); Mean Corpuscular Hgb 31.9 pg (27.0-32.0); Mean Platelet Vol. 10.4 fl (6.2-12.0); Monocyte# 0.65 X10^3/uL; Monocyte% 10.4 % (0-10); NRBC Flagged by Analyzer 0 % (0-5); Neutrophil # 3.83 X10^3/uL (2.7-7.7); Neutrophil % 61.1 % (47-70); Platelet Count 239 K/mm3 (150-450); RBC Distribution Width CV 14.5 % (11.6-14.6); RBC Distribution Width SD 53.8 fl (35.1-43.9); Red Blood Count 3.07 M/mm3 (4.2-5.4); White Blood Count 6.3 K/mm3 (4.4-11.0)
[2019-11-02] MEDS: Enoxaparin 100 MG/ML Syringe 90 MG SC (04:36)
[2019-11-02] MEDS: Insulin Lispro 100 UNIT/ML INSULN.PEN SC ×3 (06:32→22:26)
[2019-11-02] MEDS: Sucralfate 1 GM Tablet PO ×4 (06:32→22:25)
[2019-11-02 06:45] LABS: Bedside Glucose 166 mg/dL (70-110)
[2019-11-02 07:14] LABS: ALB/GLOB Ratio 0.8 RATIO (0.9-2.4); AST(SGOT) 30 U/L (15-37); Alanine Aminotransfer ALT/SGPT 24 U/L (13-56); Albumin, Serum 2.7 g/dL (3.2-5.0); Alkaline Phosphatase 79 U/L (45-117); Anion Gap 10 (5-15); BUN 22 mg/dL (7-18); BUN/Creat Ratio 5.5 RATIO (10-20); Calcium,Total 8.5 mg/dL (8.5-10.1); Chloride 101 mmol/L (98-107); Creatinine, Serum 4.01 mg/dL (0.55-1.02); EST Glomerular Filtration Rate 12 mL/min (>60); Est Glom Filt Rate - Afr Amer 15 mL/min (>60); Estimated Creatinine Clearance 10.72 ml/min; Globulin 3.6 g/dL (2.2-4.2); Glucose 190 mg/dL (74-106); Potassium 4.3 mmol/L (3.5-5.1); Protein, Total 6.3 g/dL (6.4-8.2); Sodium Level 138 mmol/L (136-145)
--- NOTE | 2019-11-02 08:19 | PN_ITS ---
Patient Problems: Active and Suspected Problems (Last Reviewed 10/28/19 @ 11:[address] Freddie Chacon MD) Chest pain (Acute) Nausea & vomiting (Acute) Subjective: Chief complaint: Follow-up after admission for unstable angina versus acute non- ST elevation MA. Patient seen and examined. No acute events overnight. This morning, she had no more chest pain. Denied nausea or vomiting. She mentioned that her symptoms started yesterday after she ate, started having retrosternal chest pain followed by nausea and vomiting. She has been having epigastric tenderness significantly. Patient was discharged from the hospital few days ago after admission for the same complaint. It was thought that her symptoms could be due to gallbladder or upper GI. She underwent upper EGD that showed severe gastritis and duodenitis. Patient was discharged on Protonix twice daily and Carafate 4 times a day. She mentioned that she did not take Carafate 4 times a day because she did not eat as much. This morning, her vital signs are stable. - Physical Exam Vitals/I&O's: Vital Signs Temp Pulse Resp BP Pulse Ox 97.7 F L 65 18 94/44 L 100 11/02/19 04:25 11/02/19 06:46 11/02/19 04:25 11/02/19 04:25 11/02/19 07:15 Oxygen Flow Rate (L/min) 2 Oxygen Delivery Method Room Air Weight: 204 lb 5.896 oz Body Mass Index (BMI) 39.4 Finger Stick Blood Glucose 275 Intake and Output for Last 24 Hours 10/31/19 11/01/19 11/02/19 23:59 23:59 23:59 Intake Total 60 / 60 330 / 330 Balance 60 / 60 330 / 330 General: Alert, Oriented x3, Cooperative, No apparent distress HEENT: Atraumatic, PERRLA, EOMI, Normocephalic Oral: Moist Mucosa, No Gingival or Mucosal Lesions/ Ulcerations Neck: Supple, No JVD, Negative Carotid Bruits, Trachea Midline, Thyroid Normal Size and Texture Lungs: Clear to auscultation, Normal air movement, No rhonchi, No wheeze, No rales, Diminished Cardiovascular: Regular rate, Regular Rhythm, Normal S1, Normal S2, PMI Normal Abdomen: Bowel Sounds Present, Soft, Non-Distended, No Hepato-splenomegaly, Tender - Mild epigastric tenderness. Extremities: No clubbing, No cyanosis, Edema Skin: No rashes, No breakdown Lymphatic: No Cervical, Supraclavicular, or Inguinal Adenopathy Neurological: Cranial nerves II-XII grossly intact, Neuro grossly intact Psych/Mental Status: Normal Affect, Appropriate, Alert and oriented to time, place, person, mood and affect Laboratory Results 11/01/19 20:28: WBC 5.4, RBC 3.61 L, Hgb 11.5 L, Hct 36.5 L, MCV 101.1 H, MCH 31.9, MCHC 31.5 L, RDW Std Deviation 53.1 H, RDW Coeff of Lauren 14.2, Plt Count 267, MPV 10.2, Immature Gran % (Auto) 0.400, Neut % (Auto) 57.5, Lymph % (Auto) 27.2, Andrews % (Auto) 10.8 H, Eos % (Auto) 3.5, Baso % (Auto) 0.6, Absolute Neuts (auto) 3.1, Absolute Lymphs (auto) 1.48, Nucleated RBC % 0 11/01/19 20:28: Sodium 138, Potassium 4.6, Chloride 100, Carbon Dioxide 33.0 H, Anion Gap 5, BUN 20 H, Creatinine 3.79 H, Estim Creat Clear Calc 11.34, Est GFR (MDRD) Af Amer 16 L, Est GFR (MDRD) Non-Af 13 L, BUN/Creatinine Ratio 5.3 L, Glucose 317 H, Calcium 9.3, Magnesium 2.3, Troponin I 0.189 H 11/01/19 20:28: Total Bilirubin 0.30, Direct Bilirubin 0.13, AST 22, ALT 27, Alkaline Phosphatase 112, Total Protein 7.6, Albumin 3.5, Globulin 4.1 11/01/19 22:26: POC Glucose 276 H 11/01/19 23:45: Troponin I 0.315 H 11/02/19 03:00: Troponin I 1.450 H* 11/02/19 03:00: WBC 6.3, RBC 3.07 L, Hgb 9.8 L, Hct 31.3 L, MCV 102.0 H, MCH 31.9, MCHC 31.3 L, RDW Std Deviation 53.8 H, RDW Coeff of Lauren 14.5, Plt Count 239, MPV 10.4, Immature Gran % (Auto) 0.300, Neut % (Auto) 61.1, Lymph % (Auto) 24.4, Andrews % (Auto) 10.4 H, Eos % (Auto) 3.2, Baso % (Auto) 0.6, Absolute Neuts (auto) 3.8, Absolute Lymphs (auto) 1.53, Nucleated RBC % 0 11/02/19 03:00: Sodium 138, Potassium 4.3, Chloride 101, Carbon Dioxide 27.0, Anion Gap 10, BUN 22 H, Creatinine 4.01 H, Estim Creat Clear Calc 10.72, Est GFR (MDRD) Af Amer 15 L, Est GFR (MDRD) Non-Af 12 L, BUN/Creatinine Ratio 5.5 L, Glucose 190 H, Calcium 8.5, Total Bilirubin 0.30, AST 30, ALT 24, Alkaline Phosphatase 79, Total Protein 6.3 L, Albumin 2.7 L, Globulin 3.6, Albumin/Globulin Ratio 0.8 L 11/02/19 06:29: POC Glucose 166 H Current Medications Acetaminophen (Tylenol) 650 mg PO Q6H PRN PRN PRN Reason: Pain Score 1-10/Temp > 100.7 F Al Hydroxide/Mg Hydroxide (Mylanta Ii) 30 ml PO Q6H PRN PRN PRN Reason: DYSPEPSIA Albuterol Sulfate (Ventolin Aerosols) 2.5 mg INHALATION Q4H PRN PRN PRN Reason: SOB &/OR WHEEZING Ascorbic Acid (Vitamin C) 500 mg PO DAILY [facility] Aspirin (Aspirin, Baby) 81 mg PO DAILY@0800 [facility] Atorvastatin Calcium (Lipitor) 80 mg PO QHS [facility] Last Admin: 11/01/19 23:54 Dose: 80 mg Documented by: Carvedilol (Coreg) 12.5 mg PO BIDCM [facility] Last Admin: 11/01/19 23:54 Dose: 12.5 mg Documented by: Cholecalciferol (Vitamin D (25mcg)) 1,000 unit PO DAILY [facility] Citalopram Hydrobromide (Celexa) 30 mg PO DAILY [facility] Clopidogrel Bisulfate (Plavix) 75 mg PO DAILY [facility] Dextrose (D50w Syringe) 0 gm IV X1 PRN; Protocol PRN Reason: Hypoglycemia Gabapentin (Neurontin) 300 mg PO QHS [facility] Last Admin: 11/01/19 23:54 Dose: 300 mg Documented by: Glucagon () 1 mg IM .X1 PRN PRN Reason: Hypoglycemia Sodium Chloride () 250 mls @ 15 mls/hr IV .[id number] PRN PRN Reason: Saline Flush Sodium Chloride () 250 mls @ 15 mls/hr IV .[id number] PRN PRN Reason: Additional IVPB Infusion Pantoprazole Sodium 40 mg/ (Sodium Chloride) 110 mls @ 330 mls/hr IV Q12 [facility] Last Infusion: 11/02/19 00:15 Dose: Infused Documented by: Insulin Glargine (Lantus (Bk)) 40 units SC DAILY [facility] Insulin Human Lispro (Humalog Kwikpen ([facility])) 0 unit SC ACHS [facility]; Protocol Last Admin: 11/02/19 06:32 Dose: 1 unit Documented by: Isosorbide Mononitrate (Imdur) 90 mg PO BID [facility] Last Admin: 11/01/19 23:53 Dose: 90 mg Documented by: Isosorbide Mononitrate (Imdur) 60 mg PO UD PRN PRN Reason: night before dialysis Multivit/Ca Carb/B Cmplx/FA/Prenat (Nephrocaps, Renaphro) 1 capsule PO DAILY [facility] Nitroglycerin (Nitrostat) 0.4 mg SUBLINGUAL Q5M PRN PRN Reason: chest pain Non-Formulary Medication (Icosapent Ethyl [Vascepa]) 1 gm PO TIDCM [facility] Ondansetron HCl (Zofran) 4 mg IV Q8H PRN PRN PRN Reason: NAUSEA/VOMITING Senna (Senokot) 1 tablet PO QHS PRN PRN Reason: Constipation Sodium Chloride () 10 - 40 ml IV UD PRN PRN Reason: SALINE FLUSH Sucralfate (Carafate) 1 gm PO 1HR_ACHS [facility] Last Admin: 11/02/19 06:32 Dose: 1 gm Documented by: Timolol Maleate (Timoptic) 1 drop RIGHT EYE BID [facility] Last Admin: 11/01/19 23:54 Dose: 1 drop Documented by: Medical Necessity - Tobacco Use Smoking Status: Former smoker Assessment/Plan All Active Problems (Last Reviewed 10/28/19 @ 11:[address] Freddie Chacon MD) Chest pain (Acute) Cholelithiasis (Acute) Nausea & vomiting (Acute) This is a 59 years old female patient presented to the emergency room because of chest pain with nausea and vomiting and was found to have EKG changes consistent with probable unstable angina versus acute ST depression on my in context of recent admission for the same complaint and seen EKG changes. #1 Probable unstable angina versus non-ST elevation MA: This morning, she is chest pain-free. EKG revealed ST segment depression and T wave inversion in lateral chest leads. Troponin was elevated. During admission last week, 2D echocardiogram done and revealed ejection fraction 50 to 55%, stage II diastolic dysfunction, mild hypokinesis of the lateral basal wall, EF improved. Patient had cardiac catheterization on May, that revealed widely patent cardiac stents, no evidence of acute or new lesions and no intervention performed. She is on aspirin, statins, Coreg, Plavix, isosorbide mononitrate. Cardiology consulted, plan to continue same treatment. #2 Severe gastritis/duodenitis/cholelithiasis: Currently, she is on IV Protonix, p.o. Carafate as well as Mylanta as needed. Last week, she had upper EGD done that showed significant gastritis and duodenitis. Ultrasound also performed and revealed gallstones, no evidence cholecystitis. Patient mentioned that she took Protonix twice daily at home but she did not use Carafate. Plan to continue same treatment. #3 end-stage renal disease on dialysis: On dialysis on Tuesdays, and Saturdays. Nephrology consulted. #4 CAD status post CABG and stents: Plan as above, continue aspirin, statins, beta-blockers, Plavix, nitrates. #5 type 2 diabetes mellitus: Blood sugar stable, continue ADA diet, continue Lantus, Accu-Cheks and insulin sliding scale. #6 hypertension: Blood pressure stable, continue current medications. #7 chronic anemia: Secondary to anemia of chronic disease. Hemoglobin and hematocrit are stable at baseline. #8 COPD: Clinically stable, no worsening shortness of breath. Continue albuterol PRN. #9 hyperlipidemia: Continue statins. #10 DVT prophylaxis: Subcu heparin. This note was generated with [employer] software. It may contain incorrect words, spelling, and punctuation that were not noted in checking the note before signing. Inpatient E&M: 36992 Subs Hosp L2
--- NOTE | 2019-11-02 08:38 | CON.PCM_ITS ---
Reason for Consult Date of Consultation: 11/02/19 Reason for Consultation: Epigastric discomfort and abnormal cardiac enzymes History of Present Illness: The patient is a 59 year old F who presents back to the emergency room yesterday after being discharged a few days ago with epigastric discomfort. She returns with a similar episode after she had been eating and then developed some nausea and vomiting. She has a history of coronary artery disease with bypass surgery in 2014. In 06/2014 pt initially underwent a dobutamine echocardiogram which was abnormal for inducible ischemia in the anterolateral rogers. She underwent diagnostic coronary angiogram was found to have probably significant left main and LAD disease. She was then transferred to [facility] where she underwent IVUS evaluation of her left main and LAD., was found to have significant left main and LAD disease. The patient underwent successful multivessel bypass surgery on 06/25/14. She received a KINCAID to the LAD, and SVG to the circumflex, and SVG to the RCA. She also has a history of Hypertension, diastolic congestive heart failure, renal insufficiency requiring dialysis, hyperlipidemia and diabetes. She presented back to the hospital later in 2014 and a cardiac catheterization at that time demonstrated a patent left internal mammary artery to the left anterior descending artery, saphenous vein graft to the circumflex artery, and a saphenous vein graft to the posterior descending artery was occluded. She did undergo procedures in September 2016 but no angioplasty at that time. In May 2017 she underwent further cardiac catheterization and had an angioplasty performed to the anastomotic site of the saphenous vein graft to the obtuse marginal vessel. In January 2019 she underwent a repeat cardiac catheterization which demonstrated a patent KINCAID to the LAD, patent saphenous vein graft to the obtuse marginal branch. The right coronary artery demonstrated disease and so she underwent angioplasty and stenting with a 2.25?16 Promus drug-eluting stent to the distal right coronary artery and a 2.5?20 Promus drug-eluting stent to the proximal right coronary artery. In January 2019 she presented with chest discomfort again was taken back to the cardiac catheterization lab and was noted to have widely patent stents with possibly the distal part of the RCA limiting flow and she underwent an additional 2.25?16 Promus stent to this vessel. She continued on with her dialysis as well as cardiac rehabilitation and then in May 2019 presented with chest discomfort which was substernal was noted to have ST depressions in the lateral leads and underwent a repeat cardiac catheterization which demonstrated patency of all the above vessels. Her ejection fraction however had declined to 20 to 25%. Medical therapy was recommended until she presented again last week with chest discomfort ruled in for an non-ST elevation myocardial infarction. Her ejection fraction had however improved to about 50%. It was felt that she should be treated with medication. His symptoms appear to be gastritis related she underwent an EGD which demonstrated gastritis and she also underwent evaluation of her gallbladder which demonstrated incidental gallstone findings. She however has not had any right upper quadrant pain. At this particular time she is pain-free. As noted above she had presented with some nausea and vomiting. Past Medical History Allergies/Adverse Reactions: Allergies lisinopril Allergy (Verified 10/27/19 17:35) Unknown ranitidine HCl [From Zantac] Allergy (Verified 10/27/19 17:35) Hives azithromycin Adverse Reaction (Verified 10/27/19 17:35) Nausea/Vom/Diarrhea Home Medications: Ambulatory Orders Medication Instructions Recorded Gabapentin [Neurontin] 300 mg PO QHS 06/07/17 Sennosides [Senna] 8.6 mg PO QHS PRN 06/07/17 Citalopram Hydrobromide 30 mg PO DAILY 11/15/18 [Citalopram HBr] Timolol 0.5% [Timoptic] 1 drp RIGHT EYE BID 11/15/18 aspirin 81 mg chewable tablet 81 mg PO DAILY@0800 #90 tab 03/06/19 albuterol sulfate 90 mcg/actuation 1 puff INHALATION Q6H PRN PRN #1 04/14/19 aerosol inhaler inhaler Atorvastatin Calcium 80 mg PO QHS 05/24/19 Clopidogrel Bisulfate [Clopidogrel] 75 mg PO DAILY 05/24/19 Isosorbide Mononitrate [Isosorbide 60 mg PO UD 05/24/19 Mononitrate ER] B complex with C 20-folic acid 1 1 cap PO DAILY 06/09/19 mg capsule Insulin Glargine,Hum.rec.anlog 40 unit SQ DAILY 09/22/19 [Basaglar Kwikpen U-100] Isosorbide Mononitrate [Imdur] 90 mg PO BID #60 tab 09/22/19 carvedilol 12.5 mg tablet 12.5 mg PO BID 09/22/19 nitroglycerin 0.4 mg sublingual 0.4 mg SUBLINGUAL Q5-15M PRN #25 09/22/19 tablet tab Ascorbic Acid [Vitamin C] 500 mg PO DAILY 10/27/19 Cholecalciferol (VIT D3) [Vitamin 1,000 unit PO DAILY 10/27/19 D3] Icosapent Ethyl [Vascepa] 1 gm PO TIDCM 10/27/19 Sucralfate [Carafate] 1 gm PO 4X/DAY #90 tab 10/29/19 Pantoprazole Sodium [Protonix] 40 mg PO BID 11/02/19 Past Medical History (Chronic Problems): Chronic Problems (Last Reviewed 10/28/19 @ 11:[address] rFeddie Chacon MD) History of left heart catheterization (Chronic 05/26/19) Triple vessel CAD of the LM, LAD and LCX; Widely patent stents in RCA/PDA. Widely patent SVG to OM; Widely patent KINCAID to LAD with 40% distal [place] LAD disease, not appreciably changed from cath in 12/2018. Global LV systolic dysfunction- Severe. Per LHC done @ [facility] per DJN LVEF: by LV gram 20-25 % Depressed Left Ventricular systolic function - Severe Elevated Left Ventricular End Diastolic Pressure Chronic kidney disease with end stage renal failure on dialysis (Chronic) CAD in [place] artery (Chronic) Chronic kidney disease on chronic dialysis (Chronic) Glaucoma (Chronic) GERD (gastroesophageal reflux disease) (Chronic) Diabetic retinopathy (Chronic) DDD (degenerative disc disease) (Chronic) Anemia in chronic renal disease (Chronic) History of non-ST elevation myocardial infarction (NSTEMI) (Chronic) Nonrheumatic mitral (valve) insufficiency (Chronic) Secondary pulmonary arterial hypertension (Chronic) Chronic diastolic (congestive) heart failure (Chronic) 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) CABG x3- KINCAID-LAD, SVG-CX, SVG-RCA 06/25/14 @ [facility] Morbid obesity (Chronic) Diabetes mellitus type 2 in obese (Chronic) End-stage renal disease on hemodialysis (Chronic) Hypertension (Chronic) HLD (hyperlipidemia) (Chronic) COPD (chronic obstructive pulmonary disease) (Chronic) CLAUDIO (obstructive sleep apnea) (Chronic) 17/11 cmH2O Secondary hyperparathyroidism of renal origin (Chronic) Surgical History: angioplasty, cataract, coronary bypass surgery - CABG x 3., hysterectomy, - - AVF placement, back surgery. 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 - *Family History Paternal Family History: Family History (Last Reviewed 09/22/19 @ 08:38 by Anel Cesar) Father Heart disease Hypertension Prostate cancer Mother Hypertension History Items: Cancer - prostate, Heart Disease, Hypertension Sibling Family History: Family History (Last Reviewed 09/22/19 @ 08:38 by Anel Cesar) Father Heart disease Hypertension Prostate cancer Mother Hypertension History Items: Diabetes Maternal Family History: Family History (Last Reviewed 09/22/19 @ 08:38 by Anel Cesar) Father Heart disease Hypertension Prostate cancer Mother Hypertension History Items: Hypertension Smoking Status: Former smoker Alcohol: None Drugs: None Review of Systems - Review of Systems General: Denies: Fever, Night Sweats, Fatigue HEENT: Denies: Vision Change Cardiovascular: Denies: Chest Discomfort, Shortness of Breath, Orthopnea, PND, Peripheral Edema, Palpitations, Lightheadedness, Dizziness, Near Syncope, Syncope Respiratory: Denies: Cough, Sputum Production, Hemoptysis Gastrointestinal: Reports: Dyspepsia, Epigastric Discomfort. Denies: Hematemesis, Hematochezia, Melena Genitourinary: Denies: Dysuria, Hematuria Skin: Denies: Rash Neurological: Denies: Dizziness Psychiatric: Denies: Anxiety Endocrine: Denies: Unexplained Weight Loss Hematologic/ Lymphatic: Denies: Anemia Subjectve: Pleasant lady in no distress at this time Objective: Vital Signs Temp Pulse Resp BP Pulse Ox 97.7 F L 65 18 94/44 L 100 11/02/19 04:25 11/02/19 06:46 11/02/19 04:25 11/02/19 04:25 11/02/19 07:15 Oxygen Flow Rate (L/min) 2 Oxygen Delivery Method Room Air Weight: 204 lb 5.896 oz Body Mass Index (BMI) 39.4 Finger Stick Blood Glucose 275 Intake and Output for Last 24 Hours 10/31/19 11/01/19 11/02/19 23:59 23:59 23:59 Intake Total 60 / 60 330 / 330 Balance 60 / 60 330 / 330 General: Awake, Alert, Oriented x 3 HEENT: PERRL, EOMI, Sclera Non Icteric Neck: Supple, Good ROM, No Lymph Node Enlargement Lungs: Clear to auscultation Cardiovascular: Regular Rhythm, Normal S1, Normal S2, No Murmurs, No Rubs, No Gallops Vascular: No Carotid Bruits, Normal Femoral Pulses, Normal Radial Pulses, Normal Dorsalis Pedal Pulse, Normal Posterior Tibial Pulses Abdomen: Bowel Sounds Present, Soft, Non Tender, No HSM, No Organomegaly Extremities: No Cyanosis, No Clubbing, No edema, - - Left arm fistula Lymphatic: No Lymph Node Enlargement Neurological: No Focal Motor or Sensory Deficit Psych/Mental Status: Appropriate 11/01/19 20:28: WBC 5.4, RBC 3.61 L, Hgb 11.5 L, Hct 36.5 L, MCV 101.1 H, MCH 31.9, MCHC 31.5 L, Plt Count 267, MPV 10.2, Immature Gran % (Auto) 0.400, Neut % (Auto) 57.5, Lymph % (Auto) 27.2, Mower % (Auto) 10.8 H, Eos % (Auto) 3.5, Baso % (Auto) 0.6, Absolute Neuts (auto) 3.1, Nucleated RBC % 0 11/01/19 20:28: Sodium 138, Potassium 4.6, Chloride 100, Carbon Dioxide 33.0 H, Anion Gap 5, BUN 20 H, Creatinine 3.79 H, Est GFR (MDRD) Af Amer 16 L, Est GFR (MDRD) Non-Af 13 L, BUN/Creatinine Ratio 5.3 L, Glucose 317 H, Calcium 9.3, Magnesium 2.3, Troponin I 0.189 H 11/01/19 20:28: Total Bilirubin 0.30, Direct Bilirubin 0.13 11/01/19 23:45: Troponin I 0.315 H 11/02/19 03:00: Troponin I 1.450 H* 11/02/19 03:00: WBC 6.3, RBC 3.07 L, Hgb 9.8 L, Hct 31.3 L, MCV 102.0 H, MCH 31.9, MCHC 31.3 L, Plt Count 239, MPV 10.4, Immature Gran % (Auto) 0.300, Neut % (Auto) 61.1, Lymph % (Auto) 24.4, Mower % (Auto) 10.4 H, Eos % (Auto) 3.2, Baso % (Auto) 0.6, Absolute Neuts (auto) 3.8, Nucleated RBC % 0 11/02/19 03:00: Sodium 138, Potassium 4.3, Chloride 101, Carbon Dioxide 27.0, Anion Gap 10, BUN 22 H, Creatinine 4.01 H, Est GFR (MDRD) Af Amer 15 L, Est GFR (MDRD) Non-Af 12 L, BUN/Creatinine Ratio 5.5 L, Glucose 190 H, Calcium 8.5, Total Bilirubin 0.30 Rhythm: EKG: Normal sinus rhythm with ST depression noted in V4 V5 V6 ECHO: Left ventricular systolic ejection fraction estimated at 50% with lateral hypokinesis Stress Test: Cardiac Cath: PCI: CT Surgery: Holter monitor: EPS: PPM: CXR: Chest CT Scan: Assessment/Plan 1. Non-ST elevation myocardial infarction * She does unquestionably have underlying [place] coronary artery disease. Her most recent cardiac catheterization 4 months ago demonstrated a patent left internal mammary artery to the left anterior descending artery, a saphenous vein graft to obtuse marginal branch which was patent, and a right coronary artery which was noted to be patent. It is not clear where she is having th lexii troponin leaks from but at this time I would recommend that we maximally manage her with medication to see how she is doing. * I will suggest the addition of ranolazine 500 mg twice a day * Add nitrates * 2. Epigastric discomfort * It does appear that she clearly has significant gastritis and this should be treated aggressively. It is not clear what role the gallbladder is playing in this however her last stent was less than a year ago and at this time I am hesitant to take her off her clopidogrel for her to undergo any GI surgical procedure. * 3. Left ventricular systolic dysfunction * This appears to have improved remarkably over the previous admission with her ejection fraction nearly normalized. I would therefore not refer her for an implantable defibrillator, as had been previously suggested. We will repeat echocardiogram in 3 months. * 4. Hypertension * Will continue with current therapy * * Thank you for allowing me to participate in the care of your patient. Please don't hesitate to call if any issues arise.
--- NOTE | 2019-11-02 08:52 | CON.PCM_ITS ---
Reason for Consult Date of Consultation: 11/02/19 Reason for Consultation: Gastritis and duodenitis History of Present Illness: The patient is a 59 year old F here with midsternal chest pain. She did have some vomiting. She does state she is still having some midsternal chest pain t his morning. She is not having any abdominal or right upper quadrant pain this morning. Past Medical History Past Medical History (Chronic Problems): Chronic Problems (Last Reviewed 10/28/19 @ 11:[address] Freddie Chacon MD) History of left heart catheterization (Chronic 05/26/19) Triple vessel CAD of the LM, LAD and LCX; Widely patent stents in RCA/PDA. Widely patent SVG to OM; Widely patent KINCAID to LAD with 40% distal [place] LAD disease, not appreciably changed from cath in 12/2018. Global LV systolic dysfunction- Severe. Per LHC done @ 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) CAD in [place] artery (Chronic) Chronic kidney disease on chronic dialysis (Chronic) Glaucoma (Chronic) GERD (gastroesophageal reflux disease) (Chronic) Diabetic retinopathy (Chronic) DDD (degenerative disc disease) (Chronic) Anemia in chronic renal disease (Chronic) History of non-ST elevation myocardial infarction (NSTEMI) (Chronic) Nonrheumatic mitral (valve) insufficiency (Chronic) Secondary pulmonary arterial hypertension (Chronic) Chronic diastolic (congestive) heart failure (Chronic) 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) I25.728 CABG x3- KINCAID-LAD, SVG-CX, SVG-RCA 06/25/14 @ [facility] Diabetes mellitus type 2 in obese (Chronic) E11.9, E66.9 End-stage renal disease on hemodialysis (Chronic) N18.6, Z99.2 Hypertension (Chronic) I10 HLD (hyperlipidemia) (Chronic) E78.5 COPD (chronic obstructive pulmonary disease) (Chronic) J44.9 CLAUDIO (obstructive sleep apnea) (Chronic) G47.33 17/11 cmH2O Secondary hyperparathyroidism of renal origin (Chronic) N25.81 Arteriovenous fistula stenosis (Inactive) T82.858A Allergies lisinopril Allergy (Verified 10/27/19 17:35) Unknown ranitidine HCl [From Zantac] Allergy (Verified 10/27/19 17:35) Hives azithromycin Adverse Reaction (Verified 10/27/19 17:35) Nausea/Vom/Diarrhea Home Medications: Ambulatory Orders Medication Instructions Recorded Gabapentin [Neurontin] 300 mg PO QHS 06/07/17 Sennosides [Senna] 8.6 mg PO QHS PRN 06/07/17 Citalopram Hydrobromide 30 mg PO DAILY 11/15/18 [Citalopram HBr] Timolol 0.5% [Timoptic] 1 drp RIGHT EYE BID 11/15/18 aspirin 81 mg chewable tablet 81 mg PO DAILY@0800 #90 tab 03/06/19 albuterol sulfate 90 mcg/actuation 1 puff INHALATION Q6H PRN PRN #1 04/14/19 aerosol inhaler inhaler Atorvastatin Calcium 80 mg PO QHS 05/24/19 Clopidogrel Bisulfate [Clopidogrel] 75 mg PO DAILY 05/24/19 Isosorbide Mononitrate [Isosorbide 60 mg PO UD 02/01/20 Mononitrate ER] B complex with C 20-folic acid 1 1 cap PO DAILY 06/09/19 mg capsule Insulin Glargine,Hum.rec.anlog 40 unit SQ DAILY 09/22/19 [Basaglar Kwikpen U-100] Isosorbide Mononitrate [Imdur] 90 mg PO BID #60 tab 09/22/19 carvedilol 12.5 mg tablet 12.5 mg PO BID 09/22/19 nitroglycerin 0.4 mg sublingual 0.4 mg SUBLINGUAL Q5-15M PRN #25 09/22/19 tablet tab Ascorbic Acid [Vitamin C] 500 mg PO DAILY 10/27/19 Cholecalciferol (VIT D3) [Vitamin 1,000 unit PO DAILY 10/27/19 D3] Icosapent Ethyl [Vascepa] 1 gm PO TIDCM 10/27/19 Sucralfate [Carafate] 1 gm PO 4X/DAY #90 tab 10/29/19 Pantoprazole Sodium [Protonix] 40 mg PO BID 11/02/19 Surgical History: Surgical History (Last Reviewed 10/28/19 @ 11:[address] Freddie Chacon MD) History of left heart catheterization (Chronic) Onset Date: 05/26/19 Z98.890 Triple vessel CAD of the LM, LAD and LCX; Widely patent stents in RCA/PDA. Widely patent SVG to OM; Widely patent KINCAID to LAD with 40% distal [place] LAD disease, not appreciably changed from cath in 12/2018. Global LV systolic dysfunction- Severe. Per LHC done @ [facility] per [facility]N LVEF: by LV gram 20-25 % Depressed Left Ventricular systolic function - Severe Elevated Left Ventricular End Diastolic Pressure Aortocoronary bypass status (Inactive) Onset Date: 06/25/14 Z95.1 CABG x3- KINCAID-LAD, SVG-CX, SVG-RCA 06/25/14 @ [facility] History of cataract surgery (Inactive) Z98.49 History of hysterectomy (Inactive) Z90.710 Postsurgical percutaneous transluminal coronary angioplasty (PTCA) status (Inactive) Onset Date: 02/18/19 Z98.61 06/12/2017:Triple vessel CAD of the LM, LCX, LAD; Persistent distal anastamotic lesion from SVG to OM#2; Possibly signifcant ischemia in DIAG branch downstream from critical LM lesion. Successful PCI with PTCA to the DISTAL ANASTOMOTIC SITE OF SVG TO OM WITH 1.5, THEN 2.0 BALLOON; 85%-->10%, NO DISSECTION OR PERFORATION. No additional stenting performed out of concern for restricting retrograde blood flow to [place] AV LCX, as well as lack of anginal symptoms during prolonged balloon inflation. Culprit artery may be [place] DIAG#1 due to LM disease, but to correct LM disease may jeopardize patent KINCAID. 02/18/2019:Triple vessel CAD of the LAD, LCX, RCA; Widely patent KINCAID to LAD; Widely patent SVG to OM with well healed distal SVG anastomitic site from previous PCI/POBA. Successful PTCA/MIGUEL distal RCA with a 2.25 x 16 Promus Synergy, 75%-->0%, no dissection. Pt had identical chest pressure during stent deployment. Successful PTCA/MIGUEL Proximal RCA with a 2.5 x 20 Promus Synergy, post dilated throughout with a 2.5 x 8 NC Balloon; 75%-->0%, no dissection. 02/20/2019:Successful PTCA/MIGUEL distal RCA with a 2.25 x 16 Promus Synergy stent at 8ATM, then inflated to 12 [place] in proximal stent to insure proper appoistion with previously placed distal RCA stent. Successful PCI with PTCA to the proximal/ostial RCA to insure that no recently placed stent struts were crimped during this procedure. Not a true STEMI; Pt had ACS with recent stenting 2 days ago with dynamic ECG changes without overt ST Elevation. angioplasty of artriovenous fistula (Inactive) Surgical History: angioplasty, cataract, coronary bypass surgery - CABG x 3., hysterectomy, - - AVF placement, back surgery. Psychiatric History: Anxiety, Depression [employer] History: No pertinent [employer] history Smoking Status: Former smoker Alcohol: None - *Family History Paternal Family History: Family History (Last Reviewed 09/22/19 @ 08:38 by Anel Cesar) Father Heart disease Hypertension Prostate cancer Mother Hypertension History Items: Cancer - prostate, Heart Disease, Hypertension Sibling Family History: Family History (Last Reviewed 09/22/19 @ 08:38 by Anel Cesar) Father Heart disease Hypertension Prostate cancer Mother Hypertension History Items: Diabetes Maternal Family History: Family History (Last Reviewed 09/22/19 @ 08:38 by Anel Cesar) Father Heart disease Hypertension Prostate cancer Mother Hypertension History Items: Hypertension Review of Systems Constitutional: Denies: Anorexia, Fever HEENT: Denies: Difficulty Swallowing Cardiovascular: Reports: Chest Pain Respiratory: Denies: Cough, Shortness of Breath Gastrointestinal: Reports: Abdominal Pain. Denies: Constipation, Diarrhea, Hematemesis, Hematochezia, Nausea, Vomiting Musculoskeletal: Denies: Joint Tenderness Skin: Denies: Jaundice Patient Problems: Active and Suspected Problems (Last Reviewed 10/28/19 @ 11:[address] Freddie Chacon MD) Chest pain (Acute) Nausea & vomiting (Acute) - Physical Exam Vitals/I&O's: Vital Signs Temp Pulse Resp BP Pulse Ox 97.7 F L 65 18 94/44 L 100 11/02/19 04:25 11/02/19 06:46 11/02/19 04:25 11/02/19 04:25 11/02/19 07:15 Oxygen Flow Rate (L/min) 2 Oxygen Delivery Method Room Air Weight: 204 lb 5.896 oz Body Mass Index (BMI) 39.4 Finger Stick Blood Glucose 275 Intake and Output for Last 24 Hours 10/31/19 11/01/19 11/02/19 23:59 23:59 23:59 Intake Total 60 / 60 330 / 330 Balance 60 / 60 330 / 330 General: Alert, Oriented x3, Cooperative Neck: No JVD Lungs: Normal air movement Cardiovascular: Regular rate, Regular Rhythm Abdomen: Soft, Non Tender, Non-Distended Musculoskeletal: No Muscle Wasting Neurological: Cranial nerves II-XII grossly intact Psych/Mental Status: Normal Affect Laboratory Results 11/01/19 20:28: WBC 5.4, RBC 3.61 L, Hgb 11.5 L, Hct 36.5 L, MCV 101.1 H, MCH 31.9, MCHC 31.5 L, RDW Std Deviation 53.1 H, RDW Coeff of Lauren 14.2, Plt Count 267, MPV 10.2, Immature Gran % (Auto) 0.400, Neut % (Auto) 57.5, Lymph % (Auto) 27.2, [place] % (Auto) 10.8 H, Eos % (Auto) 3.5, Baso % (Auto) 0.6, Absolute Neuts (auto) 3.1, Absolute Lymphs (auto) 1.48, Nucleated RBC % 0 11/01/19 20:28: Sodium 138, Potassium 4.6, Chloride 100, Carbon Dioxide 33.0 H, Anion Gap 5, BUN 20 H, Creatinine 3.79 H, Estim Creat Clear Calc 11.34, Est GFR (MDRD) Af Amer 16 L, Est GFR (MDRD) Non-Af 13 L, BUN/Creatinine Ratio 5.3 L, Glucose 317 H, Calcium 9.3, Magnesium 2.3, Troponin I 0.189 H 11/01/19 20:28: Total Bilirubin 0.30, Direct Bilirubin 0.13, AST 22, ALT 27, Alkaline Phosphatase 112, Total Protein 7.6, Albumin 3.5, Globulin 4.1 11/01/19 22:26: POC Glucose 276 H 11/01/19 23:45: Troponin I 0.315 H 11/02/19 03:00: Troponin I 1.450 H* 11/02/19 03:00: WBC 6.3, RBC 3.07 L, Hgb 9.8 L, Hct 31.3 L, MCV 102.0 H, MCH 31.9, MCHC 31.3 L, RDW Std Deviation 53.8 H, RDW Coeff of Lauren 14.5, Plt Count 239, MPV 10.4, Immature Gran % (Auto) 0.300, Neut % (Auto) 61.1, Lymph % (Auto) 24.4, [place] % (Auto) 10.4 H, Eos % (Auto) 3.2, Baso % (Auto) 0.6, Absolute Neuts (auto) 3.8, Absolute Lymphs (auto) 1.53, Nucleated RBC % 0 11/02/19 03:00: Sodium 138, Potassium 4.3, Chloride 101, Carbon Dioxide 27.0, Anion Gap 10, BUN 22 H, Creatinine 4.01 H, Estim Creat Clear Calc 10.72, Est GFR (MDRD) Af Amer 15 L, Est GFR (MDRD) Non-Af 12 L, BUN/Creatinine Ratio 5.5 L, Glucose 190 H, Calcium 8.5, Total Bilirubin 0.30, AST 30, ALT 24, Alkaline Phosphatase 79, Total Protein 6.3 L, Albumin 2.7 L, Globulin 3.6, Albumin/Globulin Ratio 0.8 L 11/02/19 03:00: Lipase Pending 11/02/19 06:29: POC Glucose 166 H Clinical Impression(s) from Imaging Studies Chest X-Ray 11/01/19 20:28 IMPRESSION: Cardiomegaly, mild pulmonary edema. Electronically Signed: Darby Clifton, at 20:42 EDT Tel , Service support , Current Medications Acetaminophen (Tylenol) 650 mg PO Q6H PRN PRN PRN Reason: Pain Score 1-10/Temp > 100.7 F Al Hydroxide/Mg Hydroxide (Mylanta Ii) 30 ml PO Q6H PRN PRN PRN Reason: DYSPEPSIA Albuterol Sulfate (Ventolin Aerosols) 2.5 mg INHALATION Q4H PRN PRN PRN Reason: SOB &/OR WHEEZING Ascorbic Acid (Vitamin C) 500 mg PO DAILY [facility] Aspirin (Aspirin, Baby) 81 mg PO DAILY@0800 [facility] Atorvastatin Calcium (Lipitor) 80 mg PO QHS [facility] Last Admin: 11/01/19 23:54 Dose: 80 mg Documented by: Carvedilol (Coreg) 12.5 mg PO BIDCM [facility] Last Admin: 11/01/19 23:54 Dose: 12.5 mg Documented by: Cholecalciferol (Vitamin D (25mcg)) 1,000 unit PO DAILY [facility] Citalopram Hydrobromide (Celexa) 30 mg PO DAILY [facility] Clopidogrel Bisulfate (Plavix) 75 mg PO DAILY [facility] Dextrose (D50w Syringe) 0 gm IV X1 PRN; Protocol PRN Reason: Hypoglycemia Gabapentin (Neurontin) 300 mg PO QHS [facility] Last Admin: 11/01/19 23:54 Dose: 300 mg Documented by: Glucagon () 1 mg IM .X1 PRN PRN Reason: Hypoglycemia Heparin Sodium (Porcine) (Heparin Na) 5,000 unit SC Q12 [place] Sodium Chloride () 250 mls @ 15 mls/hr IV .[id number] PRN PRN Reason: Saline Flush Sodium Chloride () 250 mls @ 15 mls/hr IV .[id number] PRN PRN Reason: Additional IVPB Infusion Pantoprazole Sodium 40 mg/ (Sodium Chloride) 110 mls @ 330 mls/hr IV Q12 [facility] Last Infusion: 11/02/19 00:15 Dose: Infused Documented by: Insulin Glargine (Lantus (Bk)) 40 units SC DAILY [facility] Insulin Human Lispro (Humalog Kwikpen (Bk)) 0 unit SC ACHS [facility]; Protocol Last Admin: 11/02/19 06:32 Dose: 1 unit Documented by: Isosorbide Mononitrate (Imdur) 90 mg PO BID [facility] Last Admin: 11/01/19 23:53 Dose: 90 mg Documented by: Isosorbide Mononitrate (Imdur) 60 mg PO UD PRN PRN Reason: night before dialysis Multivit/Ca Carb/B Cmplx/FA/Prenat (Nephrocaps, Renaphro) 1 capsule PO DAILY [facility] Nitroglycerin (Nitrostat) 0.4 mg SUBLINGUAL Q5M PRN PRN Reason: chest pain Non-Formulary Medication (Icosapent Ethyl [Vascepa]) 1 gm PO TIDCM [facility] Ondansetron HCl (Zofran) 4 mg IV Q8H PRN PRN PRN Reason: NAUSEA/VOMITING Senna (Senokot) 1 tablet PO QHS PRN PRN Reason: Constipation Sodium Chloride () 10 - 40 ml IV UD PRN PRN Reason: SALINE FLUSH Sucralfate (Carafate) 1 gm PO 1HR_ACHS [facility] Last Admin: 11/02/19 06:32 Dose: 1 gm Documented by: Timolol Maleate (Timoptic) 1 drop RIGHT EYE BID [facility] Last Admin: 11/01/19 23:54 Dose: 1 drop Documented by: Assessment/Plan All Active Problems (Last Reviewed 10/28/19 @ 11:[address] Freddie Chacon MD) Chest pain (Acute) Cholelithiasis (Acute) Nausea & vomiting (Acute) 59-year-old female with midsternal chest pain 1. Patient reports she has been having some midsternal chest pain as well as vomiting. She had an EGD 4 days ago which showed gastritis and duodenitis and she was started on a PPI and Carafate. PPI and Carafate are being continued in the hospital. She also had an ultrasound which showed gallstones but she is not having any right upper quadrant pain and her white count and differential are normal. I do not believe she is having acute cholecystitis. Continue PPI and Carafate for her gastritis and duodenitis. Her troponin is rising. Dr. Wakefield has been consulted for cardiac needs. From my standpoint she is okay to start diet if okay with Dr. Wakefield. Giovanni Elizalde MD Pager: [facility] [address] [place] [address], [address] [place] [address] Office:
[2019-11-02 08:56] LABS: Lipase 154 U/L (73-393)
[2019-11-02] MEDS: Heparin Injection (Vial) 5,000 UNIT/ML VIAL 5000 UNIT SC ×2 (09:36→22:27)
[2019-11-02] MEDS: 0.9% Saline Lock 10 ML Syringe IV ×2 (09:36→22:24)
[2019-11-02] MEDS: Timolol 0.5% 5ML OPTH.BTL 1 DRP RIGHT EYE ×2 (09:43→22:24)
[2019-11-02] MEDS: Folic Acid/Vitamin B Comp W-C 1 Capsule 1 CAP PO (09:44)
[2019-11-02] MEDS: Ascorbic Acid 500 MG Tablet PO (09:44)
[2019-11-02] MEDS: Aspirin 81 MG TAB.CHEW PO (09:44)
[2019-11-02] MEDS: Citalopram 10 MG Tablet 30 MG PO (09:45)
[2019-11-02] MEDS: Clopidogrel Bisulfate 75 MG Tablet PO (09:45)
[2019-11-02] MEDS: Ranolazine 500 MG Tablet PO ×2 (09:49→22:27)
[2019-11-02 14:05] LABS: Bedside Glucose 237 mg/dL (70-110)
[2019-11-02] MEDS: Carvedilol 12.5 MG Tablet PO (16:27)
[2019-11-02 17:46] LABS: Bedside Glucose 119 mg/dL (70-110)
[2019-11-02] MEDS: Gabapentin 300 MG Capsule PO (22:25)
[2019-11-02] MEDS: Atorvastatin Calcium 80 MG Tablet PO (22:25)
[2019-11-02] MEDS: Isosorbide Mononitrate 30 MG Tablet 90 MG PO (22:25)
[2019-11-02 23:36] LABS: Bedside Glucose 161 mg/dL (70-110)
[2019-11-02] MEDS: Pantoprazole Sodium 40 MG Tablet PO (23:39)
[2019-11-03] VITALS (9 sets, daily range): BP systolic 106–122; BP diastolic 48–63; PULSE 64–72; RESP 14–18; TEMP 36.6–36.9; O2SAT 96–98
[2019-11-03 06:40] LABS: Hematocrit 31.4 % (37-47); Hemoglobin 9.5 g/dL (12.0-15.0); Mean Corp Hgb Conc 30.3 g/dL (32-36); Mean Corpuscular Hgb 31.6 pg (27.0-32.0); Mean Corpuscular Volume 104.3 fL (81-99); Platelet Count 249 K/mm3 (150-450); RBC Distribution Width CV 14.3 % (11.6-14.6); RBC Distribution Width SD 54.7 fl (35.1-43.9); Red Blood Count 3.01 M/mm3 (4.2-5.4); White Blood Count 4.3 K/mm3 (4.4-11.0)
[2019-11-03] MEDS: Sucralfate 1 GM Tablet PO ×4 (06:46→21:20)
[2019-11-03 07:01] LABS: Bedside Glucose 128 mg/dL (70-110)
[2019-11-03 07:06] LABS: Albumin, Serum 2.7 g/dL (3.2-5.0); BUN 39 mg/dL (7-18); BUN/Creat Ratio 6.7 RATIO (10-20); Calcium,Total 8.5 mg/dL (8.5-10.1); Chloride 97 mmol/L (98-107); Creatinine, Serum 5.78 mg/dL (0.55-1.02); EST Glomerular Filtration Rate 8 mL/min (>60); Est Glom Filt Rate - Afr Amer 10 mL/min (>60); Estimated Creatinine Clearance 7.43 ml/min; Glucose 118 mg/dL (74-106); Phosphorus 4.5 mg/dL (2.5-4.9); Potassium 4.5 mmol/L (3.5-5.1); Sodium Level 136 mmol/L (136-145)
[2019-11-03] MEDS: Folic Acid/Vitamin B Comp W-C 1 Capsule 1 CAP PO (07:55)
[2019-11-03] MEDS: Carvedilol 12.5 MG Tablet PO (07:55)
[2019-11-03] MEDS: Ascorbic Acid 500 MG Tablet PO (07:56)
[2019-11-03] MEDS: Citalopram 10 MG Tablet 30 MG PO (07:57)
[2019-11-03] MEDS: Clopidogrel Bisulfate 75 MG Tablet PO (07:57)
--- NOTE | 2019-11-03 07:58 | PCM.PN.CARD ---
Subjectve: Patient seen and evaluated. Appears to be doing well. Objective: Vital Signs Temp Pulse Resp BP Pulse Ox 98.4 F 64 18 106/50 L 96 11/03/19 04:20 11/03/19 07:13 11/03/19 04:20 11/03/19 04:20 11/03/19 07:04 Oxygen Flow Rate (L/min) 2 Oxygen Delivery Method Nasal Cannula Weight: 204 lb 5.896 oz Body Mass Index (BMI) 39.4 Finger Stick Blood Glucose 275 Intake and Output for Last 24 Hours 11/01/19 11/02/19 11/03/19 23:59 23:59 23:59 Intake Total 60 880 / 1120 290 / 290 Balance 60 60 880 / 1120 290 / 290 General: Awake, Alert, Oriented x 3 HEENT: PERRL, EOMI, Sclera Non Icteric Neck: Supple, Good ROM, No Lymph Node Enlargement Lungs: Clear to auscultation Cardiovascular: Regular Rhythm, Normal S1, Normal S2, No Murmurs, No Rubs, No Gallops Vascular: No Carotid Bruits, Normal Femoral Pulses, Normal Radial Pulses, Normal Dorsalis Pedal Pulse, Normal Posterior Tibial Pulses Abdomen: Bowel Sounds Present, Soft, Non Tender, No HSM, No Organomegaly Extremities: No Cyanosis, No Clubbing, No edema Musculoskeletal: No Erythema Skin: No Rashes Lymphatic: No Lymph Node Enlargement Neurological: No Focal Motor or Sensory Deficit 11/03/19 06:15: WBC 4.3 L, RBC 3.01 L, Hgb 9.5 L, Hct 31.4 L, MCV 104.3 H, MCH 31.6, MCHC 30.3 L, Plt Count 249, MPV 10.0 11/03/19 06:15: Sodium 136, Potassium 4.5, Chloride 97 L, Carbon Dioxide 32.0, BUN 39 H, Creatinine 5.78 H, Est GFR (MDRD) Af Amer 10 L, Est GFR (MDRD) Non-Af 8 L, BUN/Creatinine Ratio 6.7 L, Glucose 118 H, Calcium 8.5, Phosphorus 4.5 Rhythm: EKG: ECHO: Stress Test: Cardiac Cath: PCI: CT Surgery: Holter monitor: EPS: PPM: CXR: Chest CT Scan: Medical Necessity - Tobacco Use Smoking Status: Former smoker Assessment/Plan 1. Non-ST elevation myocardial infarction She does unquestionably have underlying [place] coronary artery disease. Her most recent cardiac catheterization 4 months ago demonstrated a patent left internal mammary artery to the left anterior descending artery, a saphenous vein graft to obtuse marginal branch which was patent, and a right coronary artery which was noted to be patent. It is not clear where she is having these troponin leaks from but at this time I would recommend that we maximally manage her with medication to see how she is doing. I will suggest the addition of ranolazine 500 mg twice a day Add nitrates We would like to see how she does ambulating around today before discharging her. She prefers to go home tomorrow as she has been coming back frequently 2. Epigastric discomfort It does appear that she clearly has significant gastritis and this should be treated aggressively. It is not clear what role the gallbladder is playing in this however her last stent was less than a year ago and at this time I am hesitant to take her off her clopidogrel for her to undergo any GI surgical procedure. 3. Left ventricular systolic dysfunction This appears to have improved remarkably over the previous admission with her ejection fraction nearly normalized. I would therefore not refer her for an implantable defibrillator, as had been previously suggested. We will repeat echocardiogram in 3 months. 4. Hypertension Will continue with current therapy Thank you for allowing me to participate in the care of your patient. Please don't hesitate to call if any issues arise.
[2019-11-03] MEDS: Aspirin 81 MG TAB.CHEW PO (08:02)
--- NOTE | 2019-11-03 08:21 | PCM.PN.SRG ---
Patient Problems: Active and Suspected Problems (Last Reviewed 10/28/19 @ 11:[address] Freddie Chacon MD) Chest pain (Acute) Nausea & vomiting (Acute) Subjective: Patient reports that she did have a little bit of a stomachache overnight. She is not having any chest pain today. She has no right upper quadrant pain. She has not had any nausea or vomiting. - Physical Exam Vitals/I&O's: Vital Signs Temp Pulse Resp BP Pulse Ox 98.4 F 64 18 106/50 L 96 11/03/19 04:20 11/03/19 07:13 11/03/19 04:20 11/03/19 04:20 11/03/19 07:04 Oxygen Flow Rate (L/min) 2 Oxygen Delivery Method Nasal Cannula Weight: 204 lb 5.896 oz Body Mass Index (BMI) 39.4 Finger Stick Blood Glucose 275 Intake and Output for Last 24 Hours 11/01/19 11/02/19 11/03/19 23:59 23:59 23:59 Intake Total 60 / 60 880 / 1120 290 / 290 Balance 60 / 60 880 / 1120 290 / 290 General: Alert, Oriented x3 Lungs: Normal air movement Cardiovascular: Regular rate, Regular Rhythm Abdomen: Soft, Non Tender, Non-Distended Laboratory Results 11/02/19 03:00: Lipase 154 11/02/19 13:55: POC Glucose 237 H 11/02/19 17:42: POC Glucose 119 H 11/02/19 22:20: POC Glucose 161 H 11/03/19 06:15: WBC 4.3 L, RBC 3.01 L, Hgb 9.5 L, Hct 31.4 L, MCV 104.3 H, MCH 31.6, MCHC 30.3 L, RDW Std Deviation 54.7 H, RDW Coeff of Lauren 14.3, Plt Count 249, MPV 10.0 11/03/19 06:15: Sodium 136, Potassium 4.5, Chloride 97 L, Carbon Dioxide 32.0, BUN 39 H, Creatinine 5.78 H, Estim Creat Clear Calc 7.43, Est GFR (MDRD) Af Amer 10 L, Est GFR (MDRD) Non-Af 8 L, BUN/Creatinine Ratio 6.7 L, Glucose 118 H, Calcium 8.5, Phosphorus 4.5, Albumin 2.7 L 11/03/19 06:45: POC Glucose 128 H Current Medications Acetaminophen (Tylenol) 650 mg PO Q6H PRN PRN PRN Reason: Pain Score 1-10/Temp > 100.7 F Al Hydroxide/Mg Hydroxide (Mylanta Ii) 30 ml PO Q6H PRN PRN PRN Reason: DYSPEPSIA Albuterol Sulfate (Ventolin Aerosols) 2.5 mg INHALATION Q4H PRN PRN PRN Reason: SOB &/OR WHEEZING Ascorbic Acid (Vitamin C) 500 mg PO DAILY [facility] Last Admin: 11/03/19 07:56 Dose: 500 mg Documented by: Aspirin (Aspirin, Baby) 81 mg PO DAILY@0800 [facility] Last Admin: 11/03/19 08:02 Dose: 81 mg Documented by: Atorvastatin Calcium (Lipitor) 80 mg PO QHS [facility] Last Admin: 11/02/19 22:25 Dose: 80 mg Documented by: Carvedilol (Coreg) 12.5 mg PO BIDCM [facility] Last Admin: 11/03/19 07:55 Dose: 12.5 mg Documented by: Cholecalciferol (Vitamin D (25mcg)) 1,000 unit PO DAILY [facility] Last Admin: 11/03/19 07:55 Dose: 1,000 unit Documented by: Citalopram Hydrobromide (Celexa) 30 mg PO DAILY [facility] Last Admin: 11/03/19 07:57 Dose: 30 mg Documented by: Clopidogrel Bisulfate (Plavix) 75 mg PO DAILY [facility] Last Admin: 11/03/19 07:57 Dose: 75 mg Documented by: Dextrose (D50w Syringe) 0 gm IV X1 PRN; Protocol PRN Reason: Hypoglycemia Gabapentin (Neurontin) 300 mg PO QHS [facility] Last Admin: 11/02/19 22:25 Dose: 300 mg Documented by: Glucagon () 1 mg IM .X1 PRN PRN Reason: Hypoglycemia Heparin Sodium (Porcine) (Heparin Na) 5,000 unit SC Q12 [facility] Last Admin: 11/02/19 22:27 Dose: 5,000 unit Documented by: Sodium Chloride () 250 mls @ 15 mls/hr IV .[id number] PRN PRN Reason: Saline Flush Sodium Chloride () 250 mls @ 15 mls/hr IV .[id number] PRN PRN Reason: Additional IVPB Infusion Insulin Glargine (Lantus (Bk)) 40 units SC DAILY [facility] Last Admin: 11/02/19 09:36 Dose: 40 unit Documented by: Insulin Human Lispro (Humalog Kwikpen ([facility])) 0 unit SC [facility]; Protocol Last Admin: 11/03/19 06:46 Dose: Not Given Documented by: Isosorbide Mononitrate (Imdur) 90 mg PO BID [facility] Last Admin: 11/02/19 22:25 Dose: 90 mg Documented by: Isosorbide Mononitrate (Imdur) 60 mg PO UD PRN PRN Reason: night before dialysis Multivit/Ca Carb/B Cmplx/FA/Prenat (Nephrocaps, Renaphro) 1 capsule PO DAILY [facility] Last Admin: 11/03/19 07:55 Dose: 1 capsule Documented by: Nitroglycerin (Nitrostat) 0.4 mg SUBLINGUAL Q5M PRN PRN Reason: chest pain Ondansetron HCl (Zofran) 4 mg IV Q8H PRN PRN PRN Reason: NAUSEA/VOMITING Pantoprazole Sodium (Protonix) 40 mg PO BID [facility] Last Admin: 11/02/19 23:39 Dose: 40 mg Documented by: Polyethylene Glycol (Miralax) 17 gm PO BID PRN PRN PRN Reason: Constipation Ranolazine (Ranexa) 500 mg PO BID [facility] Last Admin: 11/02/19 22:27 Dose: 500 mg Documented by: Senna (Senokot) 1 tablet PO QHS PRN PRN Reason: Constipation Sodium Chloride () 10 - 40 ml IV UD PRN PRN Reason: SALINE FLUSH Last Admin: 11/02/19 22:24 Dose: 20 ml Documented by: Sucralfate (Carafate) 1 gm PO 1HR_ACHS [facility] Last Admin: 11/03/19 06:46 Dose: 1 gm Documented by: Timolol Maleate (Timoptic) 1 drop RIGHT EYE BID [facility] Last Admin: 11/02/19 22:24 Dose: 1 drop Documented by: Medical Necessity - Tobacco Use Smoking Status: Former smoker Assessment/Plan All Active Problems (Last Reviewed 10/28/19 @ 11:[address] Freddie Chacon MD) Chest pain (Acute) Cholelithiasis (Acute) Nausea & vomiting (Acute) 59-year-old female with abdominal pain and chest pain 1. The patient has intermittent epigastric pain. She is not complaining of any constant right upper quadrant pain and no nausea or vomiting today after tolerating regular diet. Her white count remains normal. I do not believe she is acute cholecystitis. She does have cholelithiasis and gastritis. She is to follow-up with Dr. Chacon after discharge. Continue PPI and Carafate. Giovanni Elizalde MD Pager: [facility] [address] [place] [address] [address] [place] [address] Office:
--- NOTE | 2019-11-03 08:57 | PN_ITS ---
Patient Problems: Active and Suspected Problems (Last Reviewed 10/28/19 @ 11:[address] Freddie Chacon MD) Chest pain (Acute) Nausea & vomiting (Acute) Reason for Visit: Follow-up for unstable angina and gastritis and dyspeptic symptoms. Objective: Patient heart rate and blood pressure is controlled. Pulse ox 96% on 2 L of oxygen. General: Alert, Oriented x3, Cooperative HEENT: Atraumatic, PERRLA, EOMI, Normocephalic Oral: No Gingival or Mucosal Lesions/ Ulcerations Neck: Supple, No JVD, Negative Carotid Bruits Lungs: Air entry diminished in bilateral lung bases. No crepitation/rhonchi Cardiovascular: Regular rate, Regular Rhythm, coronary bypass surgery. Normal S1, Normal S2, No murmurs Abdomen: Bowel Sounds Present, Soft, Non Tender, Non-Distended. No palpable mass. : No renal angle tenderness. No suprapubic tenderness. Extremities: No edema, Capillary Refill Less than 3 Seconds Skin: No rashes, No breakdown, mild skin peeling and skin changes secondary to hemodialysis. Musculoskeletal: No Tenderness to Palpation of Joints or Extremities Neurological: Cranial nerves II-XII grossly intact, Deep Tendon Reflexes 2+/4 and Symmetrical, Neuro grossly intact Psych/Mental Status: Normal Affect, Appropriate Vitals/I&O's: Vital Signs Temp Pulse Resp BP Pulse Ox 98.4 F 64 18 106/50 L 96 11/03/19 04:20 11/03/19 07:13 11/03/19 04:20 11/03/19 04:20 11/03/19 07:04 Oxygen Flow Rate (L/min) 2 Oxygen Delivery Method Nasal Cannula Weight: 204 lb 5.896 oz Body Mass Index (BMI) 39.4 Finger Stick Blood Glucose 275 Intake and Output for Last 24 Hours 11/01/19 11/02/19 11/03/19 23:59 23:59 23:59 Intake Total 60 880 / 1120 290 / 290 Balance 60 / 60 880 / 1120 290 / 290 Laboratory Results 11/02/19 13:55: POC Glucose 237 H 11/02/19 17:42: POC Glucose 119 H 11/02/19 22:20: POC Glucose 161 H 11/03/19 06:15: WBC 4.3 L, RBC 3.01 L, Hgb 9.5 L, Hct 31.4 L, MCV 104.3 H, MCH 31.6, MCHC 30.3 L, RDW Std Deviation 54.7 H, RDW Coeff of Lauren 14.3, Plt Count 249, MPV 10.0 11/03/19 06:15: Sodium 136, Potassium 4.5, Chloride 97 L, Carbon Dioxide 32.0, BUN 39 H, Creatinine 5.78 H, Estim Creat Clear Calc 7.43, Est GFR (MDRD) Af Amer 10 L, Est GFR (MDRD) Non-Af 8 L, BUN/Creatinine Ratio 6.7 L, Glucose 118 H, Calcium 8.5, Phosphorus 4.5, Albumin 2.7 L 11/03/19 06:45: POC Glucose 128 H Current Medications Acetaminophen (Tylenol) 650 mg PO Q6H PRN PRN PRN Reason: Pain Score 1-10/Temp > 100.7 F Al Hydroxide/Mg Hydroxide (Mylanta Ii) 30 ml PO Q6H PRN PRN PRN Reason: DYSPEPSIA Albuterol Sulfate (Ventolin Aerosols) 2.5 mg INHALATION Q4H PRN PRN PRN Reason: SOB &/OR WHEEZING Ascorbic Acid (Vitamin C) 500 mg PO DAILY [facility] Last Admin: 11/03/19 07:56 Dose: 500 mg Documented by: Aspirin (Aspirin, Baby) 81 mg PO DAILY@0800 [facility] Last Admin: 11/03/19 08:02 Dose: 81 mg Documented by: Atorvastatin Calcium (Lipitor) 80 mg PO QHS [facility] Last Admin: 11/02/19 22:25 Dose: 80 mg Documented by: Carvedilol (Coreg) 12.5 mg PO BIDCM [facility] Last Admin: 11/03/19 07:55 Dose: 12.5 mg Documented by: Cholecalciferol (Vitamin D (25mcg)) 1,000 unit PO DAILY [facility] Last Admin: 11/03/19 07:55 Dose: 1,000 unit Documented by: Citalopram Hydrobromide (Celexa) 30 mg PO DAILY [facility] Last Admin: 11/03/19 07:57 Dose: 30 mg Documented by: Clopidogrel Bisulfate (Plavix) 75 mg PO DAILY [facility] Last Admin: 11/03/19 07:57 Dose: 75 mg Documented by: Dextrose (D50w Syringe) 0 gm IV X1 PRN; Protocol PRN Reason: Hypoglycemia Gabapentin (Neurontin) 300 mg PO QHS [facility] Last Admin: 11/02/19 22:25 Dose: 300 mg Documented by: Glucagon () 1 mg IM .X1 PRN PRN Reason: Hypoglycemia Heparin Sodium (Porcine) (Heparin Na) 5,000 unit SC Q12 [facility] Last Admin: 11/02/19 22:27 Dose: 5,000 unit Documented by: Sodium Chloride () 250 mls @ 15 mls/hr IV .[id number] PRN PRN Reason: Saline Flush Sodium Chloride () 250 mls @ 15 mls/hr IV .[id number] PRN PRN Reason: Additional IVPB Infusion Insulin Glargine (Lantus ([facility])) 40 units SC DAILY [facility] Last Admin: 11/02/19 09:36 Dose: 40 unit Documented by: Insulin Human Lispro (Humalog Kwikpen ([facility])) 0 unit SC ACHS [facility]; Protocol Last Admin: 11/03/19 06:46 Dose: Not Given Documented by: Isosorbide Mononitrate (Imdur) 90 mg PO BID [facility] Last Admin: 11/02/19 22:25 Dose: 90 mg Documented by: Isosorbide Mononitrate (Imdur) 60 mg PO UD PRN PRN Reason: night before dialysis Multivit/Ca Carb/B Cmplx/FA/Prenat (Nephrocaps, Renaphro) 1 capsule PO DAILY [facility] Last Admin: 11/03/19 07:55 Dose: 1 capsule Documented by: Nitroglycerin (Nitrostat) 0.4 mg SUBLINGUAL Q5M PRN PRN Reason: chest pain Ondansetron HCl (Zofran) 4 mg IV Q8H PRN PRN PRN Reason: NAUSEA/VOMITING Pantoprazole Sodium (Protonix) 40 mg PO BID [facility] Last Admin: 11/02/19 23:39 Dose: 40 mg Documented by: Polyethylene Glycol (Miralax) 17 gm PO DAILY [facility] Ranolazine (Ranexa) 500 mg PO BID [facility] Last Admin: 11/02/19 22:27 Dose: 500 mg Documented by: Senna/Docusate Sodium (Senokot-S, Alisha-Colace) 2 tablet PO BID [facility] Stop: 11/05/19 08:56 Sodium Chloride () 10 - 40 ml IV UD PRN PRN Reason: SALINE FLUSH Last Admin: 11/02/19 22:24 Dose: 20 ml Documented by: Sucralfate (Carafate) 1 gm PO 1HR_ACHS [facility] Last Admin: 11/03/19 06:46 Dose: 1 gm Documented by: Timolol Maleate (Timoptic) 1 drop RIGHT EYE BID [facility] Last Admin: 11/02/19 22:24 Dose: 1 drop Documented by: STROKE Vital Signs/Narrative: Vital Signs Pulse Pulse Ox 11/03/19 07:13 64 11/03/19 07:04 96 Medical Necessity - Tobacco Use Smoking Status: Former smoker Assessment/Plan All Active Problems (Last Reviewed 10/28/19 @ 11:[address] Freddie Chacon MD) Chest pain (Acute) Cholelithiasis (Acute) Nausea & vomiting (Acute) This is a 59 years old female patient who is admitted through ER for chest pain with nausea and vomiting and was found to have EKG changes consistent with p robable unstable angina versus acute ST depression with recent admission between 10/27/2019?10/29/2019 for similar chest pain nausea and vomiting #1 non-ST elevation UT: Patient does not have chest pain for last 2 days. Most recent heart cath 4 months ago showed patent KINCAID to LAD, SVG to obtuse marginal branch and patent RCA. Troponins elevated. On medical management. Nitrates and ranolazine 500 mg twice daily were added. During last week admission, echo was done which showed EF 55%, stage II diastolic dysfunction, mild hypokinesis of lateral basal wall. #2 Severe gastritis/duodenitis/cholelithiasis: No abdomen tenderness or guarding. Clinically, no acute cholecystitis. Most probably nonspecific dyspeptic symptoms with bloating. Patient is on Mylanta, PPI and Carafate. Mild constipation on a stool softener. Seen by surgeon #3 end-stage renal disease on dialysis: On dialysis on Tuesdays, and Saturdays. [employer] consulted. #4 CAD status post CABG and stents: continue aspirin, statins, beta-blockers, Plavix, nitrates. #5 type 2 diabetes mellitus: Blood sugar stable, continue ADA diet, continue Lantus, Accu-Cheks and insulin sliding scale. #6 hypertension: Blood pressure stable, continue current medications. #7 chronic anemia: Secondary to anemia of chronic disease. Hemoglobin and hematocrit are stable at baseline. #8 COPD: Clinically stable, no worsening shortness of breath. Continue albuterol PRN. #9 hyperlipidemia: Continue statins. #10 DVT prophylaxis: Subcut heparin. Inpatient E&M: [id number] Subs Hosp L2
[2019-11-03] MEDS: Polyethylene Glycol 3350 17 GM PACKET PO (09:27)
[2019-11-03] MEDS: Senna/Docusate Sodium 1 Tablet 2 TABLET PO ×2 (09:27→21:21)
[2019-11-03] MEDS: Pantoprazole Sodium 40 MG Tablet PO ×2 (09:27→21:21)
[2019-11-03] MEDS: Isosorbide Mononitrate 30 MG Tablet 90 MG PO ×2 (09:28→21:20)
[2019-11-03] MEDS: Ranolazine 500 MG Tablet PO ×2 (09:28→21:21)
[2019-11-03] MEDS: Timolol 0.5% 5ML OPTH.BTL 1 DRP RIGHT EYE ×2 (09:29→21:21)
[2019-11-03] MEDS: Heparin Injection (Vial) 5,000 UNIT/ML VIAL 5000 UNIT SC ×2 (09:34→21:20)
--- NOTE | 2019-11-03 11:14 | CON.PCM_ITS ---
Consultation - Renal 11/03/19 PCP/ Referring MD: Requesting physician: [] Primary care physician: Dr. Brayden King MD Reason for Consultation:: ESRD HD TTS - History of Present Illness History of Present Illness: The patient is a 59 year old F with ESRD due to diabetes, last dialysis on Sunday at [facility], admitted over weekend for chest pain, unstable angina. She was hospitalized on 10/26- for same symptoms with NSTEMI, positive troponin levels. She had RUQ abdominal US showing gallstones with GS consults. Underwent EGD with gastritis treated with PPI and carafate. She continued to have chest pain with nausea, vomiting. Troponin levels elevated started on nitrates and ranexa by cardiology. She will have her next dialysis Sunday. [] - Allergies Allergies: Allergies lisinopril Allergy (Verified 10/27/19 17:35) Unknown ranitidine HCl [From Zantac] Allergy (Verified 10/27/19 17:35) Hives azithromycin Adverse Reaction (Verified 10/27/19 17:35) Nausea/Vom/Diarrhea - Current Medications Current Medications: Current Medications Acetaminophen (Tylenol) 650 mg PO Q6H PRN PRN PRN Reason: Pain Score 1-10/Temp > 100.7 F Al Hydroxide/Mg Hydroxide (Mylanta Ii) 30 ml PO Q6H PRN PRN PRN Reason: DYSPEPSIA Albuterol Sulfate (Ventolin Aerosols) 2.5 mg INHALATION Q4H PRN PRN PRN Reason: SOB &/OR WHEEZING Ascorbic Acid (Vitamin C) 500 mg PO DAILY [facility] Last Admin: 11/03/19 07:56 Dose: 500 mg Documented by: Aspirin (Aspirin, Baby) 81 mg PO DAILY@0800 [facility] Last Admin: 11/03/19 08:02 Dose: 81 mg Documented by: Atorvastatin Calcium (Lipitor) 80 mg PO QHS [facility] Last Admin: 11/02/19 22:25 Dose: 80 mg Documented by: Carvedilol (Coreg) 12.5 mg PO BIDCM [facility] Last Admin: 11/03/19 07:55 Dose: 12.5 mg Documented by: Cholecalciferol (Vitamin D (25mcg)) 1,000 unit PO DAILY [facility] Last Admin: 11/03/19 07:55 Dose: 1,000 unit Documented by: Citalopram Hydrobromide (Celexa) 30 mg PO DAILY [facility] Last Admin: 11/03/19 07:57 Dose: 30 mg Documented by: Clopidogrel Bisulfate (Plavix) 75 mg PO DAILY [facility] Last Admin: 11/03/19 07:57 Dose: 75 mg Documented by: Dextrose (D50w Syringe) 0 gm IV X1 PRN; Protocol PRN Reason: Hypoglycemia Gabapentin (Neurontin) 300 mg PO QHS [facility] Last Admin: 11/02/19 22:25 Dose: 300 mg Documented by: Glucagon () 1 mg IM .X1 PRN PRN Reason: Hypoglycemia Heparin Sodium (Porcine) (Heparin Na) 5,000 unit SC Q12 [facility] Last Admin: 11/03/19 09:34 Dose: 5,000 unit Documented by: Sodium Chloride () 250 mls @ 15 mls/hr IV .[id number] PRN PRN Reason: Saline Flush Sodium Chloride () 250 mls @ 15 mls/hr IV .[id number] PRN PRN Reason: Additional IVPB Infusion Insulin Glargine (Lantus ([facility])) 40 units SC DAILY [facility] Last Admin: 11/03/19 09:34 Dose: 40 unit Documented by: Insulin Human Lispro (Humalog Kwikpen ([facility])) 0 unit SC ACHS [facility]; Protocol Last Admin: 11/03/19 06:46 Dose: Not Given Documented by: Isosorbide Mononitrate (Imdur) 90 mg PO BID [facility] Last Admin: 11/03/19 09:28 Dose: 90 mg Documented by: Isosorbide Mononitrate (Imdur) 60 mg PO UD PRN PRN Reason: night before dialysis Multivit/Ca Carb/B Cmplx/FA/Prenat (Nephrocaps, Renaphro) 1 capsule PO DAILY [facility] Last Admin: 11/03/19 07:55 Dose: 1 capsule Documented by: Nitroglycerin (Nitrostat) 0.4 mg SUBLINGUAL Q5M PRN PRN Reason: chest pain Ondansetron HCl (Zofran) 4 mg IV Q8H PRN PRN PRN Reason: NAUSEA/VOMITING Pantoprazole Sodium (Protonix) 40 mg PO BID [facility] Last Admin: 11/03/19 09:27 Dose: 40 mg Documented by: Polyethylene Glycol (Miralax) 17 gm PO DAILY [facility] Last Admin: 11/03/19 09:27 Dose: 17 gm Documented by: Ranolazine (Ranexa) 500 mg PO BID [facility] Last Admin: 11/03/19 09:28 Dose: 500 mg Documented by: Senna/Docusate Sodium (Senokot-S, Alisha-Colace) 2 tablet PO BID [facility] Stop: 11/05/19 10:01 Last Admin: 11/03/19 09:27 Dose: 2 tablet Documented by: Sodium Chloride () 10 - 40 ml IV UD PRN PRN Reason: SALINE FLUSH Last Admin: 11/02/19 22:24 Dose: 20 ml Documented by: Sucralfate (Carafate) 1 gm PO 1HR_ACHS [facility] Last Admin: 11/03/19 06:46 Dose: 1 gm Documented by: Timolol Maleate (Timoptic) 1 drop RIGHT EYE BID [facility] Last Admin: 11/03/19 09:29 Dose: 1 drop Documented by: - Past Medical History Past Medical History (Chronic Problems): Chronic Problems (Last Reviewed 10/28/19 @ 11:[address] Freddie Chacon MD) History of left heart catheterization (Chronic 05/26/19) Triple vessel CAD of the LM, LAD and LCX; Widely patent stents in RCA/PDA. Widely patent SVG to OM; Widely patent KINCAID to LAD with 40% distal [place] LAD disease, not appreciably changed from cath in 12/2018. Global LV systolic dysfunction- Severe. Per LHC done @ [facility] per DJN LVEF: by LV gram 20-25 % Depressed Left Ventricular systolic function - Severe Elevated Left Ventricular End Diastolic Pressure Chronic kidney disease with end stage renal failure on dialysis (Chronic) CAD in [place] artery (Chronic) Chronic kidney disease on chronic dialysis (Chronic) Glaucoma (Chronic) GERD (gastroesophageal reflux disease) (Chronic) Diabetic retinopathy (Chronic) DDD (degenerative disc disease) (Chronic) Anemia in chronic renal disease (Chronic) History of non-ST elevation myocardial infarction (NSTEMI) (Chronic) Nonrheumatic mitral (valve) insufficiency (Chronic) Secondary pulmonary arterial hypertension (Chronic) Chronic diastolic (congestive) heart failure (Chronic) 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 - Social History Smoking Status: Former smoker Alcohol: None Drugs: None - Family History Paternal Family History: Family History (Last Reviewed 09/22/19 @ 08:38 by Anel Cesar) Father Heart disease Hypertension Prostate cancer Mother Hypertension History Items: Cancer - prostate, Heart Disease, Hypertension Sibling Family History: Family History (Last Reviewed 09/22/19 @ 08:38 by Anel Cesar) Father Heart disease Hypertension Prostate cancer Mother Hypertension History Items: Diabetes Maternal Family History: Family History (Last Reviewed 09/22/19 @ 08:38 by Anel Cesar) Father Heart disease Hypertension Prostate cancer Mother Hypertension History Items: Hypertension Review of Systems Constitutional: Denies: Anorexia, Chills Cardiovascular: Reports: Chest Pain Respiratory: Denies: Shortness of Breath Gastrointestinal: Reports: Abdominal Pain - epigastrics, Nausea, Vomiting Genitourinary: Denies: Dysuria Skin: Denies: Rash Psychiatric: Denies: Anxiety, Depression Hematologic/ Lymphatic: Reports: Anemia Patient Problems: Active and Suspected Problems (Last Reviewed 10/28/19 @ 11:[address] Freddie Chacon MD) Chest pain (Acute) Nausea & vomiting (Acute) - Physical Exam Vitals/I&O's: Vital Signs Temp Pulse Resp BP Pulse Ox 97.8 F 69 16 122/59 H 96 11/03/19 09:25 11/03/19 09:25 11/03/19 09:25 11/03/19 09:25 11/03/19 09:25 Oxygen Flow Rate (L/min) 2 Oxygen Delivery Method Room Air Weight: 95.5 kg Body Mass Index (BMI) 39.4 Finger Stick Blood Glucose 275 Intake and Output for Last 24 Hours 11/01/19 11/02/19 11/03/19 23:59 23:59 23:59 Intake Total 60 / 60 880 / 1120 290 / 290 Balance 60 880 / 1120 290 / 290 General: Alert, Oriented x3, Cooperative Lungs: Clear to auscultation Cardiovascular: Regular rate Abdomen: Bowel Sounds Present, Soft, Non Tender, Obese Extremities: No edema, - - AVF +thrill and bruit Musculoskeletal: No Muscle Wasting Neurological: Cranial nerves II-XII grossly intact Psych/Mental Status: Normal Affect, Appropriate, Alert and oriented to time, place, person, mood and affect Laboratory Results 11/02/19 13:55: POC Glucose 237 H 11/02/19 17:42: POC Glucose 119 H 11/02/19 22:20: POC Glucose 161 H 11/03/19 06:15: WBC 4.3 L, RBC 3.01 L, Hgb 9.5 L, Hct 31.4 L, MCV 104.3 H, MCH 31.6, MCHC 30.3 L, RDW Std Deviation 54.7 H, RDW Coeff of Lauren 14.3, Plt Count 249, MPV 10.0 11/03/19 06:15: Sodium 136, Potassium 4.5, Chloride 97 L, Carbon Dioxide 32.0, BUN 39 H, Creatinine 5.78 H, Estim Creat Clear Calc 7.43, Est GFR (MDRD) Af Amer 10 L, Est GFR (MDRD) Non-Af 8 L, BUN/Creatinine Ratio 6.7 L, Glucose 118 H, Calcium 8.5, Phosphorus 4.5, Albumin 2.7 L 11/03/19 06:45: POC Glucose 128 H Current Medications Acetaminophen (Tylenol) 650 mg PO Q6H PRN PRN PRN Reason: Pain Score 1-10/Temp > 100.7 F Al Hydroxide/Mg Hydroxide (Mylanta Ii) 30 ml PO Q6H PRN PRN PRN Reason: DYSPEPSIA Albuterol Sulfate (Ventolin Aerosols) 2.5 mg INHALATION Q4H PRN PRN PRN Reason: SOB &/OR WHEEZING Ascorbic Acid (Vitamin C) 500 mg PO DAILY [facility] Last Admin: 11/03/19 07:56 Dose: 500 mg Documented by: Aspirin (Aspirin, Baby) 81 mg PO DAILY@0800 [facility] Last Admin: 11/03/19 08:02 Dose: 81 mg Documented by: Atorvastatin Calcium (Lipitor) 80 mg PO QHS [facility] Last Admin: 11/02/19 22:25 Dose: 80 mg Documented by: Carvedilol (Coreg) 12.5 mg PO BIDCM [facility] Last Admin: 11/03/19 07:55 Dose: 12.5 mg Documented by: Cholecalciferol (Vitamin D (25mcg)) 1,000 unit PO DAILY [facility] Last Admin: 11/03/19 07:55 Dose: 1,000 unit Documented by: Citalopram Hydrobromide (Celexa) 30 mg PO DAILY [facility] Last Admin: 11/03/19 07:57 Dose: 30 mg Documented by: Clopidogrel Bisulfate (Plavix) 75 mg PO DAILY [facility] Last Admin: 11/03/19 07:57 Dose: 75 mg Documented by: Dextrose (D50w Syringe) 0 gm IV X1 PRN; Protocol PRN Reason: Hypoglycemia Gabapentin (Neurontin) 300 mg PO QHS [facility] Last Admin: 11/02/19 22:25 Dose: 300 mg Documented by: Glucagon () 1 mg IM .X1 PRN PRN Reason: Hypoglycemia Heparin Sodium (Porcine) (Heparin Na) 5,000 unit SC Q12 [facility] Last Admin: 11/03/19 09:34 Dose: 5,000 unit Documented by: Sodium Chloride () 250 mls @ 15 mls/hr IV .[id number] PRN PRN Reason: Saline Flush Sodium Chloride () 250 mls @ 15 mls/hr IV .[id number] PRN PRN Reason: Additional IVPB Infusion Insulin Glargine (Lantus (Bk)) 40 units SC DAILY [facility] Last Admin: 11/03/19 09:34 Dose: 40 unit Documented by: Insulin Human Lispro (Humalog Kwikpen (Bk)) 0 unit SC ACHS [facility]; Protocol Last Admin: 11/03/19 06:46 Dose: Not Given Documented by: Isosorbide Mononitrate (Imdur) 90 mg PO BID [facility] Last Admin: 11/03/19 09:28 Dose: 90 mg Documented by: Isosorbide Mononitrate (Imdur) 60 mg PO UD PRN PRN Reason: night before dialysis Multivit/Ca Carb/B Cmplx/FA/Prenat (Nephrocaps, Renaphro) 1 capsule PO DAILY [facility] Last Admin: 07/13/20 07:55 Dose: 1 capsule Documented by: Nitroglycerin (Nitrostat) 0.4 mg SUBLINGUAL Q5M PRN PRN Reason: chest pain Ondansetron HCl (Zofran) 4 mg IV Q8H PRN PRN PRN Reason: NAUSEA/VOMITING Pantoprazole Sodium (Protonix) 40 mg PO BID [facility] Last Admin: 11/03/19 09:27 Dose: 40 mg Documented by: Polyethylene Glycol (Miralax) 17 gm PO DAILY [facility] Last Admin: 11/03/19 09:27 Dose: 17 gm Documented by: Ranolazine (Ranexa) 500 mg PO BID [facility] Last Admin: 11/03/19 09:28 Dose: 500 mg Documented by: Senna/Docusate Sodium (Senokot-S, Alisha-Colace) 2 tablet PO BID [facility] Stop: 11/05/19 10:01 Last Admin: 11/03/19 09:27 Dose: 2 tablet Documented by: Sodium Chloride () 10 - 40 ml IV UD PRN PRN Reason: SALINE FLUSH Last Admin: 11/02/19 22:24 Dose: 20 ml Documented by: Sucralfate (Carafate) 1 gm PO 1HR_ACHS [facility] Last Admin: 11/03/19 06:46 Dose: 1 gm Documented by: Timolol Maleate (Timoptic) 1 drop RIGHT EYE BID [facility] Last Admin: 11/03/19 09:29 Dose: 1 drop Documented by: Assessment/Plan All Active Problems (Last Reviewed 10/28/19 @ 11:[address] Freddie Chacon MD) Chest pain (Acute) Cholelithiasis (Acute) Nausea & vomiting (Acute) 1. ESRD HD TTS. Next dialysis Tues 2. Anemia hgb stable 3. Unstable angina cardiology following 4. Gallstones, gastritits 5. Nausea, vomiting persists 6. HTN stable 7. DM2 stable
[2019-11-03] MEDS: Insulin Lispro 100 UNIT/ML INSULN.PEN SC ×2 (11:39→16:18)
[2019-11-03 11:50] LABS: Bedside Glucose 212 mg/dL (70-110)
--- NOTE | 2019-11-03 15:30 | CASEMGMT ---
RN CM assessment: Face to Face with patient for initial transition planning/care coordination assessment. RN CM introduced self and role at [facility], pt voices understanding and consents to assessment at this time. Pt is sitting up in chair in no distress at this time. Pt is A/Ox4 at this time and answers all questions appropriately at this time. Care providers, pharmacy, and demographics verified at this time. Presentation: CP, 2 nitro did not help, now with vomiting Admitting dx: Unstable angina, NSTEMI PCP: Fernando Specialists: Sal, cardio; Antonette, eye; Ayo nephro Preferred Pharmacy: [facility] Insurance: [facility] Prescription Benefit: Yes Living Will/HPOA: Pt has LW/HPOA and is aware that they are on file at [facility] at this time. Pt states her mother, Carolina Casanova, is HPOA. LNOK: Carolina Casanova, mother/HPOA; Blake Casanova, son; Viktoriya Yost, son Living Arrangements: Pt states lives with adult son, 12yo daughter, and grandchildren in 2 story home with bathroom on 2nd floor and pt states that she will be moving to a new home where she will have bedroom/bathroom on main level. Pt states that she does self care but her mother/son cook most meals. Transportation: Pt states uses [employer] or family drives and states no transportation concerns at this time. DME/HHC: Pt states has the following DME: cane, walker, medical alert, glucometer, BP cuff, grab bars, shower chair, hand held shower, nebulizer, and bip[place] [facility] states she is interested in lift chair and this RN CM referred her to her [facility] CM, pt voices understanding. Pt states has had [facility] and been to [facility] in the past. [facility] and dialysis center is aware that pt will not be there tomorrow am as she is still admitted at this time, voice understanding. Pt states she gets meals once daily thru [facility]. Pt states normally has aides but has not currently d/t COVID. Pt states no concerns with going home at time of discharge. Pt states is disabled. Pt states does not smoke or drink ETOH. Pt states no further concerns/needs at this time. CM to follow for any further discharge planning/needs. Advised pt to ask for CM if any further questions/concerns/needs arise, voices understanding. Pt Goal: Home w/ resumption of services/OP therapy. Plan: Home w/ resumption of services/OP therapy. SStjhonny CALERO CM
[2019-11-03 16:45] LABS: Bedside Glucose 176 mg/dL (70-110)
[2019-11-03] MEDS: Atorvastatin Calcium 80 MG Tablet PO (21:21)
[2019-11-03] MEDS: Gabapentin 300 MG Capsule PO (21:21)
[2019-11-03 21:50] LABS: Bedside Glucose 142 mg/dL (70-110)
[2019-11-04] VITALS (7 sets, daily range): BP systolic 111–149; BP diastolic 51–69; PULSE 67–77; RESP 16–18; TEMP 36.6–36.7; O2SAT 96–100
[2019-11-04 04:01] LABS: Bedside Glucose 104 mg/dL (70-110)
[2019-11-04 04:01] LABS: Bedside Glucose 63 mg/dL (70-110)
[2019-11-04 05:34] LABS: Absolute Lymphocyte Count 1.23 X10^3/uL (0.83-4.51); Absolute Neutrophil Count 2.7 X10^3/uL (2.0-7.7); Basophil# 0.03 X10^3/uL; Basophil% 0.6 % (0-1); Eosinophil# 0.24 X10^3/uL; Eosinophils% 5.1 % (0-5); Hematocrit 29.1 % (37-47); Hemoglobin 9.1 g/dL (12.0-15.0); Lymphocyte # 1.23 X10^3/ul (4.0); Lymphocyte % 26.3 % (19-41); Mean Corp Hgb Conc 31.3 g/dL (32-36); Mean Corpuscular Volume 102.5 fL (81-99); Mean Platelet Vol. 10.1 fl (6.2-12.0); Monocyte# 0.45 X10^3/uL; Monocyte% 9.6 % (0-10); NRBC Flagged by Analyzer 0 % (0-5); Neutrophil # 2.69 X10^3/uL (2.7-7.7); Neutrophil % 57.8 % (47-70); Platelet Count 220 K/mm3 (150-450); RBC Distribution Width CV 14.1 % (11.6-14.6); RBC Distribution Width SD 53.6 fl (35.1-43.9); Red Blood Count 2.84 M/mm3 (4.2-5.4); White Blood Count 4.7 K/mm3 (4.4-11.0)
[2019-11-04 05:58] LABS: Anion Gap 9 (5-15); BUN 55 mg/dL (7-18); BUN/Creat Ratio 8.1 RATIO (10-20); Calcium,Total 8.4 mg/dL (8.5-10.1); Chloride 100 mmol/L (98-107); Creatinine, Serum 6.79 mg/dL (0.55-1.02); EST Glomerular Filtration Rate 7 mL/min (>60); Est Glom Filt Rate - Afr Amer 8 mL/min (>60); Estimated Creatinine Clearance 6.33 ml/min; Glucose 110 mg/dL (74-106); Potassium 4.6 mmol/L (3.5-5.1); Sodium Level 136 mmol/L (136-145)
[2019-11-04] MEDS: Sucralfate 1 GM Tablet PO ×2 (06:30→12:27)
[2019-11-04 07:10] LABS: Bedside Glucose 147 mg/dL (70-110)
--- NOTE | 2019-11-04 07:36 | DCINST_ITS ---
- Discharge Diagnoses Current Active Problems: Current Active and Chronic Problems (Last Reviewed 10/28/19 @ 11:[address] Freddie Chacon MD) Chest pain (Acute) Nausea & vomiting (Acute) You will use the following diet at home:: Calorie/Carbohydrate Controlled (specify 1200, 1400, etc), Cardiac Your food should be the consistency of: Regular Discharge Activity: May Not Drive Weight Bearing Status: Weight bearing as tolerated Call your doctor if you observe: Fever of 101 or Higher, Numbness or Tingling, Inability to urinate, Inability to have a bowel movement, Shortness of breath, Dizziness, Fainting spells, Swelling in the ankles, Chest pain, Prolonged hiccoughing, Increased palpitations (irregular heartbeat), Calf discomfort, Uncontrolled pain Allergies/Adverse Reactions: Allergies lisinopril Allergy (Verified 10/27/19 17:35) Unknown ranitidine HCl [From Zantac] Allergy (Verified 10/27/19 17:35) Hives azithromycin Adverse Reaction (Verified 10/27/19 17:35) Nausea/Vom/Diarrhea Medications to take at Discharge Gabapentin [Neurontin] 300 mg PO QHS 06/07/17 Timolol 0.5% [Timoptic] 1 drp RIGHT EYE BID 11/15/18 aspirin 81 mg chewable tablet 81 mg PO DAILY@0800 #90 tab 03/06/19 albuterol sulfate 90 mcg/actuation aerosol inhaler 1 puff INHALATION Q6H PRN PRN #1 inhaler 04/14/19 Atorvastatin Calcium 80 mg PO QHS 05/24/19 Clopidogrel Bisulfate [Clopidogrel] 75 mg PO DAILY 05/24/19 B complex with C 20-folic acid 1 mg capsule 1 cap PO DAILY 06/09/19 carvedilol 12.5 mg tablet 12.5 mg PO BID 09/22/19 nitroglycerin 0.4 mg sublingual tablet 0.4 mg SUBLINGUAL Q5-15M PRN #25 tab 09/22/19 Ascorbic Acid [Vitamin C] 500 mg PO DAILY 10/27/19 Cholecalciferol (VIT D3) [Vitamin D3] 1,000 unit PO DAILY 10/27/19 Icosapent Ethyl [Vascepa] 1 gm PO TIDCM 10/27/19 Sucralfate [Carafate] 1 gm PO 4X/DAY #90 tab 10/29/19 Pantoprazole Sodium [Protonix] 40 mg PO BID 11/02/19 Citalopram Hydrobromide [Citalopram HBr] 20 mg PO DAILY #0 11/04/19 Insulin Glargine,Hum.rec.anlog [Basaglar Kwikpen U-100] 38 unit SQ DAILY #0 11/04/19 Isosorbide Mononitrate [Imdur] 90 mg PO BID #60 tab 11/04/19 Isosorbide Mononitrate [Isosorbide Mononitrate ER] 60 mg PO UD #0 11/04/19 Polyethylene Glycol 3350 [Miralax] 17 gm PO DAILY packet 11/04/19 Ranolazine [Ranexa] 500 mg PO BID #60 tablet 11/04/19 Senna/Docusate Sodium [Senokot-S] 2 tablet PO BID tablet 11/04/19 The following prescriptions were given: Ranolazine [Ranexa] 500 mg PO BID #60 tablet Primary Care Physician: Brayden King Chi, MD [Primary Care Provider] - Please follow up with your Primary Care Physician in: In 2 weeks Test Results: Test results from this visit will be discussed in further detail at your follow- up appointment, if applicable. Please Follow Up With: Freddie Chacon MD When: In 4 weeks Please Follow Up With: Freddie Huang MD When: In 2 to 4 weeks Please Follow Up With: Brayden King Chi, MD
--- NOTE | 2019-11-04 08:30 | PN.CARD_ITS ---
Subjectve: Patient seen and evaluated. Appears to be stable at this time. Objective: Vital Signs Temp Pulse Resp BP Pulse Ox 97.9 F 68 16 111/51 L 96 11/04/19 06:45 11/04/19 06:56 11/04/19 06:45 11/04/19 06:45 11/04/19 07:20 Oxygen Flow Rate (L/min) 2 Oxygen Delivery Method Room Air Weight: 214 lb 4.629 oz Body Mass Index (BMI) 39.4 Finger Stick Blood Glucose 275 Intake and Output for Last 24 Hours 11/02/19 11/03/19 11/04/19 23:59 23:59 23:59 Intake Total 880 / 1120 1600 / 1600 120 / 120 Balance 880 / 1120 1600 / 1600 120 / 120 Vascular: No Carotid Bruits, Normal Femoral Pulses, Normal Radial Pulses, Normal Dorsalis Pedal Pulse, Normal Posterior Tibial Pulses Abdomen: Bowel Sounds Present, Soft, Non Tender, No HSM, No Organomegaly Extremities: No Cyanosis, No Clubbing, No edema Musculoskeletal: No Erythema Skin: No Rashes Neurological: No Focal Motor or Sensory Deficit 11/04/19 05:28: WBC 4.7, RBC 2.84 L, Hgb 9.1 L, Hct 29.1 L, MCV 102.5 H, MCH 32.0, MCHC 31.3 L, Plt Count 220, MPV 10.1, Immature Gran % (Auto) 0.600, Neut % (Auto) 57.8, Lymph % (Auto) 26.3, Elliott % (Auto) 9.6, Eos % (Auto) 5.1 H, Baso % (Auto) 0.6, Absolute Neuts (auto) 2.7, Nucleated RBC % 0 11/04/19 05:28: Sodium 136, Potassium 4.6, Chloride 100, Carbon Dioxide 27.0, Anion Gap 9, BUN 55 H, Creatinine 6.79 H, Est GFR (MDRD) Af Amer 8 L, Est GFR (MDRD) Non-Af 7 L, BUN/Creatinine Ratio 8.1 L, Glucose 110 H, Calcium 8.4 L Rhythm: EKG: ECHO: Stress Test: Cardiac Cath: PCI: CT Surgery: Holter monitor: EPS: PPM: CXR: Chest CT Scan: Medical Necessity - Tobacco Use Smoking Status: Former smoker Assessment/Plan 1. Non-ST elevation myocardial infarction * She does unquestionably have underlying lyt[place] coronary artery disease. Her most recent cardiac catheterization 4 months ago demonstrated a patent left internal mammary artery to the left anterior descending artery, a saphenous vein graft to obtuse marginal branch which was patent, and a right coronary artery which was noted to be patent. It is not clear where she is having these troponin leaks from but at this time I would recommend that we maximally manage her with medication to see how she is doing. * I will suggest the addition of ranolazine 500 mg twice a day * Add nitrates * We would like to see how she does postdialysis today before discharging her. This is especially because this is her second admission here in 2 weeks with a non-ST elevation myocardial infarction and I think it is imperative that we make sure that she is stable and can tolerate dialysis before sending her home. I have discussed the above with the patient, the nursing staff, the dialysis nurse, and the hospitalist. * Will follow-up later today 2. Epigastric discomfort * It does appear that she clearly has significant gastritis and this should be treated aggressively. It is not clear what role the gallbladder is playing in this however her last stent was less than a year ago and at this time I am hesitant to take her off her clopidogrel for her to undergo any GI surgical procedure. * 3. Left ventricular systolic dysfunction * This appears to have improved remarkably over the previous admission with her ejection fraction nearly normalized. I would therefore not refer her for an implantable defibrillator, as had been previously suggested. We will repeat echocardiogram in 3 months. * 4. Hypertension * Will continue with current therapy * * Thank you for allowing me to participate in the care of your patient. Please don't hesitate to call if any issues arise.
--- NOTE | 2019-11-04 08:51 | CASEMGMT ---
Per [facility] PCU charge, Dr. Wakefield would like pt to have dialysis prior to discharge. Mirian CALERO CM
--- NOTE | 2019-11-04 10:04 | PCM.PN.REN ---
Patient Problems: Active and Suspected Problems (Last Reviewed 10/28/19 @ 11:[address] Freddie Chacon MD) Chest pain (Acute) Nausea & vomiting (Acute) Subjective: seen on dialysis, no chest pain. Complains of constipation. - Physical Exam Vitals/I&O's: Vital Signs Temp Pulse Resp BP Pulse Ox 97.9 F 68 16 111/51 L 96 11/04/19 06:45 11/04/19 06:56 11/04/19 06:45 11/04/19 06:45 11/04/19 07:20 Oxygen Flow Rate (L/min) 2 Oxygen Delivery Method Room Air Weight: 97.2 kg Body Mass Index (BMI) 39.4 Finger Stick Blood Glucose 275 Intake and Output for Last 24 Hours 11/02/19 11/03/19 11/04/19 23:59 23:59 23:59 Intake Total 880 / 1120 1600 / 1600 120 / 120 Balance 880 / 1120 1600 / 1600 120 / 120 General: Alert, Oriented x3, Cooperative Lungs: Clear to auscultation Cardiovascular: Regular rate Abdomen: Bowel Sounds Present, Soft Extremities: No edema Laboratory Results 11/03/19 11:37: POC Glucose 212 H 11/03/19 16:16: POC Glucose 176 H 11/03/19 21:28: POC Glucose 142 H 11/04/19 03:16: POC Glucose 63 L 11/04/19 03:54: POC Glucose 104 11/04/19 05:28: WBC 4.7, RBC 2.84 L, Hgb 9.1 L, Hct 29.1 L, MCV 102.5 H, MCH 32.0, MCHC 31.3 L, RDW Std Deviation 53.6 H, RDW Coeff of Lauren 14.1, Plt Count 220, MPV 10.1, Immature Gran % (Auto) 0.600, Neut % (Auto) 57.8, Lymph % (Auto) 26.3, [place] % (Auto) 9.6, Eos % (Auto) 5.1 H, Baso % (Auto) 0.6, Absolute Neuts (auto) 2.7, Absolute Lymphs (auto) 1.23, Nucleated RBC % 0 11/04/19 05:28: Sodium 136, Potassium 4.6, Chloride 100, Carbon Dioxide 27.0, Anion Gap 9, BUN 55 H, Creatinine 6.79 H, Estim Creat Clear Calc 6.33, Est GFR (MDRD) Af Amer 8 L, Est GFR (MDRD) Non-Af 7 L, BUN/Creatinine Ratio 8.1 L, Glucose 110 H, Calcium 8.4 L 11/04/19 06:34: POC Glucose 147 H Current Medications Acetaminophen (Tylenol) 650 mg PO Q6H PRN PRN PRN Reason: Pain Score 1-10/Temp > 100.7 F Al Hydroxide/Mg Hydroxide (Mylanta Ii) 30 ml PO Q6H PRN PRN PRN Reason: DYSPEPSIA Albuterol Sulfate (Ventolin Aerosols) 2.5 mg INHALATION Q4H PRN PRN PRN Reason: SOB &/OR WHEEZING Ascorbic Acid (Vitamin C) 500 mg PO DAILY [facility] Last Admin: 11/03/19 07:56 Dose: 500 mg Documented by: Aspirin (Aspirin, Baby) 81 mg PO DAILY@0800 [facility] Last Admin: 11/03/19 08:02 Dose: 81 mg Documented by: Atorvastatin Calcium (Lipitor) 80 mg PO QHS [facility] Last Admin: 11/03/19 21:21 Dose: 80 mg Documented by: Carvedilol (Coreg) 12.5 mg PO BIDCM [facility] Last Admin: 11/03/19 19:59 Dose: Not Given Documented by: Cholecalciferol (Vitamin D (25mcg)) 1,000 unit PO DAILY [facility] Last Admin: 11/03/19 07:55 Dose: 1,000 unit Documented by: Citalopram Hydrobromide (Celexa) 30 mg PO DAILY [facility] Last Admin: 11/03/19 07:57 Dose: 30 mg Documented by: Clopidogrel Bisulfate (Plavix) 75 mg PO DAILY [facility] Last Admin: 11/03/19 07:57 Dose: 75 mg Documented by: Dextrose (D50w Syringe) 0 gm IV X1 PRN; Protocol PRN Reason: Hypoglycemia Gabapentin (Neurontin) 300 mg PO QHS [facility] Last Admin: 11/03/19 21:21 Dose: 300 mg Documented by: Glucagon () 1 mg IM .X1 PRN PRN Reason: Hypoglycemia Heparin Sodium (Porcine) (Heparin Na) 5,000 unit SC Q12 [facility] Last Admin: 11/03/19 21:20 Dose: 5,000 unit Documented by: Sodium Chloride () 250 mls @ 15 mls/hr IV .[id number] PRN PRN Reason: Saline Flush Sodium Chloride () 250 mls @ 15 mls/hr IV .[id number] PRN PRN Reason: Additional IVPB Infusion Insulin Glargine (Lantus ([facility])) 40 units SC DAILY [facility] Last Admin: 11/03/19 09:34 Dose: 40 unit Documented by: Insulin Human Lispro (Humalog Kwikpen ([facility])) 0 unit SC ACHS [facility]; Protocol Last Admin: 11/04/19 06:35 Dose: Not Given Documented by: Isosorbide Mononitrate (Imdur) 90 mg PO BID [facility] Last Admin: 11/03/19 21:20 Dose: 90 mg Documented by: Isosorbide Mononitrate (Imdur) 60 mg PO UD PRN PRN Reason: night before dialysis Multivit/Ca Carb/B Cmplx/FA/Prenat (Nephrocaps, Renaphro) 1 capsule PO DAILY [facility] Last Admin: 11/03/19 07:55 Dose: 1 capsule Documented by: Nitroglycerin (Nitrostat) 0.4 mg SUBLINGUAL Q5M PRN PRN Reason: chest pain Ondansetron HCl (Zofran) 4 mg IV Q8H PRN PRN PRN Reason: NAUSEA/VOMITING Pantoprazole Sodium (Protonix) 40 mg PO BID [facility] Last Admin: 11/03/19 21:21 Dose: 40 mg Documented by: Polyethylene Glycol (Miralax) 17 gm PO DAILY [facility] Last Admin: 11/03/19 09:27 Dose: 17 gm Documented by: Ranolazine (Ranexa) 500 mg PO BID [facility] Last Admin: 11/03/19 21:21 Dose: 500 mg Documented by: Senna/Docusate Sodium (Senokot-S, Alisha-Colace) 2 tablet PO BID [facility] Stop: 11/05/19 10:01 Last Admin: 11/03/19 21:21 Dose: 2 tablet Documented by: Sodium Chloride () 10 - 40 ml IV UD PRN PRN Reason: SALINE FLUSH Last Admin: 11/02/19 22:24 Dose: 20 ml Documented by: Sucralfate (Carafate) 1 gm PO 1HR_ACHS [facility] Last Admin: 11/04/19 06:30 Dose: 1 gm Documented by: Timolol Maleate (Timoptic) 1 drop RIGHT EYE BID [facility] Last Admin: 11/03/19 21:21 Dose: 1 drop Documented by: Medical Necessity - Tobacco Use Smoking Status: Former smoker Assessment/Plan All Active Problems (Last Reviewed 10/28/19 @ 11:[address] Freddie Chacon MD) Chest pain (Acute) Cholelithiasis (Acute) Nausea & vomiting (Acute) 1. ESRD HD TTS.Seen on dialysis this am. 2. Anemia hgb stable 3. Unstable angina cardiology following 4. Gallstones, gastritits 5. Nausea, vomiting persists 6. HTN stable 7. DM2 stable
--- NOTE | 2019-11-04 10:31 | PCM.DC.SUM ---
Discharge Date and Diagnosis - Problem List Patient Problems: Active and Suspected Problems (Last Reviewed 10/28/19 @ 11:[address] Freddie Chacon MD) Chest pain (Acute) Nausea & vomiting (Acute) Date of Admission: 11/01/19 Date of Discharge: 11/04/19 - Primary Discharge Diagnosis Acute Problems: Active Problems (Last Reviewed 10/28/19 @ 11:[address] Freddie Chacon MD) Chest pain (Acute) Nausea & vomiting (Acute) - Secondary Discharge Diagnosis Chronic Problems: Chronic Problems (Last Reviewed 10/28/19 @ 11:[address] Freddie Chacon MD) History of left heart catheterization (Chronic 05/26/19) Triple vessel CAD of the LM, LAD and LCX; Widely patent stents in RCA/PDA. Widely patent SVG to OM; Widely patent KINCAID to LAD with 40% distal cherokee LAD disease, not appreciably changed from cath in 12/2018. Global LV systolic dysfunction- Severe. Per LHC done @ [facility] per [facility]N LVEF: by LV gram 20-25 % Depressed Left Ventricular systolic function - Severe Elevated Left Ventricular End Diastolic Pressure Chronic kidney disease with end stage renal failure on dialysis (Chronic) CAD in cherokee artery (Chronic) Chronic kidney disease on chronic dialysis (Chronic) Glaucoma (Chronic) GERD (gastroesophageal reflux disease) (Chronic) Diabetic retinopathy (Chronic) DDD (degenerative disc disease) (Chronic) Anemia in chronic renal disease (Chronic) History of non-ST elevation myocardial infarction (NSTEMI) (Chronic) Nonrheumatic mitral (valve) insufficiency (Chronic) Secondary pulmonary arterial hypertension (Chronic) Chronic diastolic (congestive) heart failure (Chronic) 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) CABG x3- KINCAID-LAD, SVG-CX, SVG-RCA 06/25/14 @ [facility] Morbid obesity (Chronic) Diabetes mellitus type 2 in obese (Chronic) End-stage renal disease on hemodialysis (Chronic) Hypertension (Chronic) HLD (hyperlipidemia) (Chronic) COPD (chronic obstructive pulmonary disease) (Chronic) CLAUDIO (obstructive sleep apnea) (Chronic) 17/11 cmH2O Secondary hyperparathyroidism of renal origin (Chronic) Hospital Course and Treatment Operations: None Summary of Care Provided: T [] This is a 59 years old female patient who is admitted through ER for chest pain with nausea and vomiting and was found to have EKG changes consistent with probable unstable angina versus acute ST depression with recent admission between 10/27/2019?10/29/2019 for similar chest pain nausea and vomiting #1 non-ST elevation MT: Patient does not have chest pain for last 2 days. Most recent heart cath 4 months ago showed patent KINCAID to LAD, SVG to obtuse marginal branch and patent RCA. Troponins elevated. On medical management. Nitrates and ranolazine 500 mg twice daily were added. During last week admission, echo was done which showed EF 55%, stage II diastolic dysfunction, mild hypokinesis of lateral basal wall. Prescription sent for Ranexa to retail pharmacy. #2 Severe gastritis/duodenitis/cholelithiasis: No abdomen tenderness or guarding. Clinically, no acute cholecystitis. Most probably nonspecific dyspeptic symptoms with bloating. Patient is on Mylanta, PPI and Carafate. Patient had CT abdomen and pelvis without contrast on 10/27/2019 which reported normal stomach, small intestine and colon. Patient also had right upper quadrant sonogram on 10/28/2019 which reported multiple gallstones but no cholecystitis features. Chronic constipation probably secondary to slow colonic transit: Patient was given 10 mg Dulcolax p.o. in the morning. Follow-up with PCP for constipation. #3 end-stage renal disease on dialysis: On dialysis on Tuesdays, and Saturdays. [employer] consulted. #4 CAD status post CABG and stents: continue aspirin, statins, beta-blockers, Plavix, nitrates. #5 type 2 diabetes mellitus: Blood sugar stable, continue ADA diet, continue Lantus, Accu-Cheks and insulin sliding scale. #6 hypertension: Blood pressure stable, continue current medications. #7 chronic anemia: Secondary to anemia of chronic disease. Hemoglobin and hematocrit are stable at baseline. #8 COPD: Clinically stable, no worsening shortness of breath. Continue albuterol PRN. #9 hyperlipidemia: Continue statins. Discharge medication reconciliation done. Discharge follow-up instructions completed. Discharge process discussed with the patient and all questions were answered to patient's satisfaction. Total time spent, exact 35 minutes on discharge meds reconciliation, examination, coordination of care with nurses and ancillary staff, review of imaging and blood test and discussion with the patient on follow-up instructions Patient Problems: Active and Suspected Problems (Last Reviewed 10/28/19 @ 11:[address] Freddie Chacon MD) Chest pain (Acute) Nausea & vomiting (Acute) Objective: Patient does not have abdominal pain or shortness of breath or chest pain. Vitals within acceptable limit. Patient undergoing hemodialysis in the morning Physical exam General: Alert, Oriented x3, Cooperative HEENT: Atraumatic, PERRLA, EOMI, Normocephalic Oral: No Gingival or Mucosal Lesions/ Ulcerations Neck: Supple, No JVD, Negative Carotid Bruits Lungs: Air entry diminished in bilateral lung bases. No crepitation/rhonchi Cardiovascular: Regular rate, sinus arrhythmia, coronary bypass surgery. Normal S1, Normal S2, No murmurs Abdomen: Bowel Sounds Present, Soft, Non Tender, Non-Distended. No palpable mass. : No renal angle tenderness. No suprapubic tenderness. Extremities: No edema, Capillary Refill Less than 3 Seconds Skin: No rashes, No breakdown, mild skin peeling and skin changes secondary to hemodialysis. Musculoskeletal: No Tenderness to Palpation of Joints or Extremities Neurological: Cranial nerves II-XII grossly intact, Deep Tendon Reflexes 2+/4 and Symmetrical, Neuro grossly intact Psych/Mental Status: Normal Affect, Appropriate - Physical Exam Vitals/I&O's: Vital Signs Temp Pulse Resp BP Pulse Ox 97.9 F 68 16 111/51 L 97 11/04/19 06:45 11/04/19 06:56 11/04/19 06:45 11/04/19 06:45 11/04/19 06:45 Oxygen Flow Rate (L/min) 2 Oxygen Delivery Method Room Air Weight: 214 lb 4.629 oz Body Mass Index (BMI) 39.4 Finger Stick Blood Glucose 275 Intake and Output for Last 24 Hours 11/02/19 11/03/19 11/04/19 23:59 23:59 23:59 Intake Total 880 / 1120 1600 / 1600 120 / 120 Balance 880 / 1120 1600 / 1600 120 / 120 Laboratory Results 11/03/19 11:37: POC Glucose 212 H 11/03/19 16:16: POC Glucose 176 H 11/03/19 21:28: POC Glucose 142 H 11/04/19 03:16: POC Glucose 63 L 11/04/19 03:54: POC Glucose 104 11/04/19 05:28: WBC 4.7, RBC 2.84 L, Hgb 9.1 L, Hct 29.1 L, MCV 102.5 H, MCH 32.0, MCHC 31.3 L, RDW Std Deviation 53.6 H, RDW Coeff of Lauren 14.1, Plt Count 220, MPV 10.1, Immature Gran % (Auto) 0.600, Neut % (Auto) 57.8, Lymph % (Auto) 26.3, [place] % (Auto) 9.6, Eos % (Auto) 5.1 H, Baso % (Auto) 0.6, Absolute Neuts (auto) 2.7, Absolute Lymphs (auto) 1.23, Nucleated RBC % 0 11/04/19 05:28: Sodium 136, Potassium 4.6, Chloride 100, Carbon Dioxide 27.0, Anion Gap 9, BUN 55 H, Creatinine 6.79 H, Estim Creat Clear Calc 6.33, Est GFR (MDRD) Af Amer 8 L, Est GFR (MDRD) Non-Af 7 L, BUN/Creatinine Ratio 8.1 L, Glucose 110 H, Calcium 8.4 L 11/04/19 06:34: POC Glucose 147 H Current Medications Acetaminophen (Tylenol) 650 mg PO Q6H PRN PRN PRN Reason: Pain Score 1-10/Temp > 100.7 F Al Hydroxide/Mg Hydroxide (Mylanta Ii) 30 ml PO Q6H PRN PRN PRN Reason: DYSPEPSIA Albuterol Sulfate (Ventolin Aerosols) 2.5 mg INHALATION Q4H PRN PRN PRN Reason: SOB &/OR WHEEZING Ascorbic Acid (Vitamin C) 500 mg PO DAILY [facility] Last Admin: 11/03/19 07:56 Dose: 500 mg Documented by: Aspirin (Aspirin, Baby) 81 mg PO DAILY@0800 [facility] Last Admin: 11/03/19 08:02 Dose: 81 mg Documented by: Atorvastatin Calcium (Lipitor) 80 mg PO QHS [facility] Last Admin: 11/03/19 21:21 Dose: 80 mg Documented by: Carvedilol (Coreg) 12.5 mg PO BIDCM [facility] Last Admin: 11/03/19 19:59 Dose: Not Given Documented by: Cholecalciferol (Vitamin D (25mcg)) 1,000 unit PO DAILY [facility] Last Admin: 11/03/19 07:55 Dose: 1,000 unit Documented by: Citalopram Hydrobromide (Celexa) 30 mg PO DAILY [facility] Last Admin: 11/03/19 07:57 Dose: 30 mg Documented by: Clopidogrel Bisulfate (Plavix) 75 mg PO DAILY [facility] Last Admin: 11/03/19 07:57 Dose: 75 mg Documented by: Dextrose (D50w Syringe) 0 gm IV X1 PRN; Protocol PRN Reason: Hypoglycemia Gabapentin (Neurontin) 300 mg PO QHS [facility] Last Admin: 11/03/19 21:21 Dose: 300 mg Documented by: Glucagon () 1 mg IM .X1 PRN PRN Reason: Hypoglycemia Heparin Sodium (Porcine) (Heparin Na) 5,000 unit SC Q12 [facility] Last Admin: 11/03/19 21:20 Dose: 5,000 unit Documented by: Sodium Chloride () 250 mls @ 15 mls/hr IV .[id number] PRN PRN Reason: Saline Flush Sodium Chloride () 250 mls @ 15 mls/hr IV .[id number] PRN PRN Reason: Additional IVPB Infusion Insulin Glargine (Lantus ([facility])) 40 units SC DAILY [facility] Last Admin: 11/03/19 09:34 Dose: 40 unit Documented by: Insulin Human Lispro (Humalog Kwikpen ([facility])) 0 unit SC ACHS [facility]; Protocol Last Admin: 11/04/19 06:35 Dose: Not Given Documented by: Isosorbide Mononitrate (Imdur) 90 mg PO BID [facility] Last Admin: 11/03/19 21:20 Dose: 90 mg Documented by: Isosorbide Mononitrate (Imdur) 60 mg PO UD PRN PRN Reason: night before dialysis Multivit/Ca Carb/B Cmplx/FA/Prenat (Nephrocaps, Renaphro) 1 capsule PO DAILY [facility] Last Admin: 11/03/19 07:55 Dose: 1 capsule Documented by: Nitroglycerin (Nitrostat) 0.4 mg SUBLINGUAL Q5M PRN PRN Reason: chest pain Ondansetron HCl (Zofran) 4 mg IV Q8H PRN PRN PRN Reason: NAUSEA/VOMITING Pantoprazole Sodium (Protonix) 40 mg PO BID [facility] Last Admin: 11/03/19 21:21 Dose: 40 mg Documented by: Polyethylene Glycol (Miralax) 17 gm PO DAILY [facility] Last Admin: 11/03/19 09:27 Dose: 17 gm Documented by: Ranolazine (Ranexa) 500 mg PO BID [facility] Last Admin: 11/03/19 21:21 Dose: 500 mg Documented by: Senna/Docusate Sodium (Senokot-S, Alisha-Colace) 2 tablet PO BID [facility] Stop: 11/05/19 10:01 Last Admin: 11/03/19 21:21 Dose: 2 tablet Documented by: Sodium Chloride () 10 - 40 ml IV UD PRN PRN Reason: SALINE FLUSH Last Admin: 11/02/19 22:24 Dose: 20 ml Documented by: Sucralfate (Carafate) 1 gm PO 1HR_ACHS [facility] Last Admin: 11/04/19 06:30 Dose: 1 gm Documented by: Timolol Maleate (Timoptic) 1 drop RIGHT EYE BID [facility] Last Admin: 11/03/19 21:21 Dose: 1 drop Documented by: Discharge Activity: May Not Drive Weight Bearing Status: Weight bearing as tolerated Call your doctor if you observe: Fever of 101 or Higher, Numbness or Tingling, Inability to urinate, Inability to have a bowel movement, Shortness of breath, Dizziness, Fainting spells, Swelling in the ankles, Chest pain, Prolonged hiccoughing, Increased palpitations (irregular heartbeat), Calf discomfort, Uncontrolled pain Home Medications: Medications to take at Discharge Gabapentin [Neurontin] 300 mg PO QHS 06/07/17 Timolol 0.5% [Timoptic] 1 drp RIGHT EYE BID 11/15/18 aspirin 81 mg chewable tablet 81 mg PO DAILY@0800 #90 tab 03/06/19 albuterol sulfate 90 mcg/actuation aerosol inhaler 1 puff INHALATION Q6H PRN PRN #1 inhaler 04/14/19 Atorvastatin Calcium 80 mg PO QHS 05/24/19 Clopidogrel Bisulfate [Clopidogrel] 75 mg PO DAILY 05/24/19 B complex with C 20-folic acid 1 mg capsule 1 cap PO DAILY 06/09/19 carvedilol 12.5 mg tablet 12.5 mg PO BID 09/22/19 nitroglycerin 0.4 mg sublingual tablet 0.4 mg SUBLINGUAL Q5-15M PRN #25 tab 09/22/19 Ascorbic Acid [Vitamin C] 500 mg PO DAILY 10/27/19 Cholecalciferol (VIT D3) [Vitamin D3] 1,000 unit PO DAILY 10/27/19 Icosapent Ethyl [Vascepa] 1 gm PO TIDCM 10/27/19 Sucralfate [Carafate] 1 gm PO 4X/DAY #90 tab 10/29/19 Pantoprazole Sodium [Protonix] 40 mg PO BID 11/02/19 Citalopram Hydrobromide [Citalopram HBr] 20 mg PO DAILY #0 11/04/19 Insulin Glargine,Hum.rec.anlog [Basaglar Kwikpen U-100] 38 unit SQ DAILY #0 11/04/19 Isosorbide Mononitrate [Imdur] 90 mg PO BID #60 tab 11/04/19 Isosorbide Mononitrate [Isosorbide Mononitrate ER] 60 mg PO UD #0 11/04/19 Polyethylene Glycol 3350 [Miralax] 17 gm PO DAILY packet 11/04/19 Ranolazine [Ranexa] 500 mg PO BID #60 tab 11/04/19 Senna/Docusate Sodium [Senokot-S] 2 tab PO BID tab 11/04/19 Following Prescrptions Were Given to Patient: Ranolazine [Ranexa] 500 mg PO BID #60 tab Transmission Status: Pending to [facility] Primary Care Physician: Brayden King Chi, MD [Primary Care Provider] - Please follow up with your Primary Care Physician in: In 2 weeks Please Follow Up With: Freddie Chacon MD When: In 4 weeks Please Follow Up With: Freddie Huang MD When: In 2 to 4 weeks Please Follow Up With: Brayden King Chi, MD Medical Necessity - Tobacco Use Smoking Status: Former smoker Meaningful Use Info Meaningful Use Diagnoses (Choose all that apply): AMI - AMI/Post PCI/Angioplasty Aspirin given w/in 24hrs of arrival?: Yes ASA at discharge?: Yes Antiplatelet Therapy at Discharge:: Yes Statins at discharge?: Yes Chano/ARB at discharge?: No Reason Chano/ARB not ordered:: Worsening renal disease Beta Hallie at discharge?: Yes Done w/ Acute MT measure.: Yes Documented LVEF (%): 55 Inpatient E&M: 29244 Disch Hosp
[2019-11-04] MEDS: Senna/Docusate Sodium 1 Tablet 2 TABLET PO (10:43)
[2019-11-04] MEDS: Polyethylene Glycol 3350 17 GM PACKET PO (10:43)
[2019-11-04] MEDS: Bisacodyl 5 MG Tablet 10 MG PO (10:43)
[2019-11-04 11:16] LABS: Bedside Glucose 140 mg/dL (70-110)
[2019-11-04] MEDS: Epoetin Alfa epbx 10,000 UNITS/ML 6000 UNIT IV (11:40)
[2019-11-04] MEDS: Heparin 10,000 UNITS/10 ML Vial 3000 UNITS IV (11:41)
--- NOTE | 2019-11-04 12:21 | DIALYSIS ---
HD X 3.15HRS ON 2K BATH UF-2000ML POST WEIGHT 94.5KG BP STABLE STASIS AT [facility] REPORT TO BEE CALERO EPOGEN GIVEN
[2019-11-04] MEDS: Aspirin 81 MG TAB.CHEW PO (12:25)
[2019-11-04] MEDS: Carvedilol 12.5 MG Tablet PO (12:25)
[2019-11-04] MEDS: Clopidogrel Bisulfate 75 MG Tablet PO (12:26)
[2019-11-04] MEDS: Heparin Injection (Vial) 5,000 UNIT/ML VIAL 5000 UNIT SC (12:26)
[2019-11-04] MEDS: Ascorbic Acid 500 MG Tablet PO (12:27)
[2019-11-04] MEDS: Pantoprazole Sodium 40 MG Tablet PO (12:27)
[2019-11-04] MEDS: Ranolazine 500 MG Tablet PO (12:27)
[2019-11-04] MEDS: Timolol 0.5% 5ML OPTH.BTL 1 DRP RIGHT EYE (12:28)
[2019-11-04] MEDS: Folic Acid/Vitamin B Comp W-C 1 Capsule 1 CAP PO (12:28)
[2019-11-04] MEDS: Citalopram 10 MG Tablet 30 MG PO (12:29)
[2019-11-04] MEDS: Isosorbide Mononitrate 30 MG Tablet 90 MG PO (12:29)
[2019-11-04 12:46] LABS: Bedside Glucose 90 mg/dL (70-110)
[2019-11-04 15:20] LABS: Bedside Glucose 133 mg/dL (70-110)
--- NOTE | 2019-11-05 14:17 | CASEMGMT ---
Addendum entered by Emperatriz Garcia 11/05/19 14:29: Call back from pt and she states she has been doing 'pretty good' since discharge yesterday. Pt states no questions regarding discharge instructions/medications at this time. Pt states has f/u appt's scheduled and plans to keep. Pt states has dialysis tomorrow am. Pt states no suggestions for [facility] at this time and states 'You guys are all awesome!' Pt voices no further questions/concerns/needs at this time and thanks this ABDIAS PAZ for call. Mirian CALERO CM Original Note: RN CM Discharge F/U Phone Call LACE: 12 Strata: 3 Discharge date: 11/04/2019 Call date: 11/05/2019 Call time: [phone] Attempted to reach pt without success at this time, message left for pt to call this RN JACKSON back if/when able. Mirian CALERO CM Admission dx: Unstable angina/NSTEMI
== END 2019-11-04 16:30 | disposition home or self-care (01) | DRG 280 ==
LOC: ED 21:35 → PCU 11-02 00:29
PROVIDERS: Hospitalist; Internal Medicine Nephrology; Admitting Provider Internal Medicine; Emergency Provider Emergency Medicine; PCP Family Medicine Geriatric Medicine; Referring Provider Internal Medicine; Visit Provider Internal Medicine
DX: I22.2 Subsequent non-ST elevation (NSTEMI) myocardial infarction (principal); N18.6 End stage renal disease; I13.2 Hypertensive heart and chronic kidney disease with heart failure and with stage 5 chronic kidney disease, or end stage renal disease; N25.81 Secondary hyperparathyroidism of renal origin; Z68.41 Body mass index [BMI] 40.0-44.9, adult; I50.42 Chronic combined systolic (congestive) and diastolic (congestive) heart failure; I21.4 Non-ST elevation (NSTEMI) myocardial infarction; I25.110 Atherosclerotic heart disease of native coronary artery with unstable angina pectoris; R11.2 Nausea with vomiting, unspecified; E11.22 Type 2 diabetes mellitus with diabetic chronic kidney disease; Z99.2 Dependence on renal dialysis; K21.9 Gastro-esophageal reflux disease without esophagitis; E11.319 Type 2 diabetes mellitus with unspecified diabetic retinopathy without macular edema; D63.1 Anemia in chronic kidney disease; I34.0 Nonrheumatic mitral (valve) insufficiency; I27.21 Secondary pulmonary arterial hypertension; E66.01 Morbid (severe) obesity due to excess calories; E78.5 Hyperlipidemia, unspecified; J44.9 Chronic obstructive pulmonary disease, unspecified; G47.33 Obstructive sleep apnea (adult) (pediatric); K29.70 Gastritis, unspecified, without bleeding; K29.80 Duodenitis without bleeding; K80.20 Calculus of gallbladder without cholecystitis without obstruction; K59.09 Other constipation; Z95.1 Presence of aortocoronary bypass graft; Z95.5 Presence of coronary angioplasty implant and graft; Z79.4 Long term (current) use of insulin; Z79.82 Long term (current) use of aspirin; Z79.02 Long term (current) use of antithrombotics/antiplatelets; Z79.899 Other long term (current) drug therapy; Z87.891 Personal history of nicotine dependence
CPT/HCPCS: 36415; 71045; 80048; 80053; 80069; 80076; 82962; 83036; 83690; 83735; 84484; 85025; 85027; 85610; 85730; 88305; 88342; 90937; 93005; 97162; 97165; 97802; 99251; 99284; J7120; A4216; G0257; G0463; J2405; Q5106

== ENCOUNTER 2019-11-11 14:59 | Emergency (ER) | payer MEDICARE, MEDICAID, SELFPAY ==
[2019-06-04 11:27] VITALS: BMI 37.3
[2019-11-01 22:33] VITALS: BMI 39.4
[2019-11-11 15:00] VITALS: BP 122/72; PULSE 75; RESP 18; TEMP 36.6; O2SAT 100; BMI 40.6
--- NOTE | 2019-11-11 15:17 | EKG12_ITS ---
Test Reason : CP Blood Pressure : / mmHG Vent. Rate : 075 BPM Atrial Rate : 075 BPM P-R Int : 158 ms QRS Dur : 092 ms QT Int : 460 ms P-R-T Axes : 053 -53 151 degrees QTc Int : 513 ms Normal sinus rhythm Possible Left atrial enlargement Left axis deviation Left ventricular hypertrophy with repolarization abnormality Prolonged QT Abnormal ECG Confirmed by OLINDA MUSTAFA ([id number]), telegraph editor MADDY STERLING ([id number]) on 11/17/2019 12:13:16 PM Referred By: SIMA Confirmed By:OLINDA MUSTAFA
[2019-11-11] MEDS: Ondansetron ODT 4 MG Tablet PO (15:37)
[2019-11-11 15:40] VITALS: O2SAT 100
--- NOTE | 2019-11-11 15:40 | RAD_ITS ---
STUDY: X-RAY CHEST REASON FOR EXAM: Female, 59 years old. Nausea, vomiting since dialysis today TECHNIQUE: Single AP portable view of the chest. COMPARISON: 11/01/2019 FINDINGS: EKG leads overlie the chest The lungs are clear and expanded. There is no demonstrated pleural abnormality. Sternal cerclage wires are present from a prior sternotomy. Normal mediastinum and branden. Normal visualized pulmonary arteries. Normal visualized aortic arch and descending thoracic aorta. Normal visualized thoracic spine. Normal visualized ribs, clavicles, and shoulders. There is no demonstrated abnormality of the visualized soft tissue structures of the upper abdomen. RAD/Chest 1 View (Portable) IMPRESSION: No acute pulmonary process, previously noted pulmonary edema has resolved. Electronically Signed: Lawson Canela MD at 15:57 EDT , Service support ,
[2019-11-11 15:45] LABS: Absolute Lymphocyte Count 1.26 X10^3/uL (0.83-4.51); Absolute Neutrophil Count 6.6 X10^3/uL (2.0-7.7); Basophil# 0.03 X10^3/uL; Basophil% 0.3 % (0-1); Eosinophil# 0.16 X10^3/uL; Eosinophils% 1.8 % (0-5); Hematocrit 30.4 % (37-47); Hemoglobin 9.6 g/dL (12.0-15.0); Lymphocyte # 1.26 X10^3/ul (4.0); Lymphocyte % 14.5 % (19-41); Mean Corp Hgb Conc 31.6 g/dL (32-36); Mean Corpuscular Hgb 32.2 pg (27.0-32.0); Mean Platelet Vol. 10.1 fl (6.2-12.0); Monocyte# 0.61 X10^3/uL; NRBC Flagged by Analyzer 0 % (0-5); Neutrophil # 6.57 X10^3/uL (2.7-7.7); Neutrophil % 76.1 % (47-70); Platelet Count 314 K/mm3 (150-450); RBC Distribution Width CV 15.5 % (11.6-14.6); RBC Distribution Width SD 57.3 fl (35.1-43.9); Red Blood Count 2.98 M/mm3 (4.2-5.4); White Blood Count 8.7 K/mm3 (4.4-11.0)
--- NOTE | 2019-11-11 16:10 | ED.VISSUMM ---
- ER Visit Summary Date of Service: 11/11/19 Chief Complaint: Chest pain History of Present Illness: The patient is a [address] Huang, Dr. King, and Dr. Rollins. She reports that she has chest and abdominal pain that has been intermittent for the past 2 weeks. She reports that this most recent episode began after having a full round of dialysis today. The pain began at approximately 1030 while she was at rest. She describes it as a pressure that was 9 out of 10 at worst and she is pain-free currently. It is worsened with walking around. It resolves after she takes nitroglycerin. States that then returned approximately 15 minutes later. She has been nauseated and vomited 4 times. No blood or emesis. She has been diaphoretic and short of breath with this as well. Patient reports that she has an aching upper abdominal pain that is been present for the past 2 weeks. That is a constant pain. Is 9 at 10 at worst and 4-10 currently. That is worsened by nothing. That is relieved by vomiting. She reports that her last bowel was today. She is had no melena medic easier. She is oliguric and there is been no change in her urination. Physical Examination: Vitals: Stable. Afebrile. General: Well-nourished and well-developed. Head: Normocephalic atraumatic. Neck: Supple, no lymphadenopathy. No JVD. Nontender. Cardiovascular: Regular rate and rhythm. 2 out of 6 systolic murmur. Respiratory: No respiratory distress. Clear to auscultation bilaterally. Abdominal: Soft, mild epigastric tenderness to palpation, nondistended, normal bowel sounds. No guarding, rebound, or peritoneal signs. Back: Nontender. Extremities: Nontender, no edema. Skin: Normal color, no rash. Neurologic: Alert and oriented ?3. Cranial nerves II through XII are intact. Normal strength and sensation. Psych: Normal affect. Test Results: EKG is sinus at 75. She has T wave inversions in leads I and aVL consistent with LVH. She has Q waves in leads V1 and V2. Her QTC today is 513. That is the only change from October 31. At that time her QTC was 481. Troponin today is 0.35 following 5 hours of pain. This month it is ranged between 0.189?4.4. LFTs show an ALT of 63 and AST of 54. Lipase is 64. CBC shows an H&H of 9.6 and 30.4. Segmented neutrophils of 76 and lymphocytes of 15. Chem-7 shows a CO2 of 34, glucose of 258, BUN of 35, creatinine 4.77. Magnesium is normal. Clinical Impression(s) from Imaging Studies Chest X-Ray 11/11/19 15:40 IMPRESSION: No acute pulmonary process, previously noted pulmonary edema has resolved. Electronically Signed: Lawson Canela MD at 15:57 EDT , Service support , Emergency Department Course and Treatment: Patient was treated with Zofran IV. She refused pain medications. She is denying chest pain at this time. Treatment Plan: Patient has been admitted to the hospital twice this month for this. She has not been cathed while she is here because her last cath was 4 months ago. It was felt that she would benefit most from maximized medical therapy. The patient was discharged on Ranexa. She reports there was a misunderstanding with her daughter and she has not started taking this. She is resting comfortably here and would like to go home. The patient was discussed with Dr. Bean. She will be discharged with instructions to begin her Ranexa. Follow-up with Dr. Huang as soon as possible. Return to the emergency department for any worsening symptoms. Disposition: To home in improved and stable condition. Impression: 1. Stable angina. 2. End-stage renal disease. 3. QTC of 513. 4. Anemia. This note was generated with [employer] dictation software. It may contain incorrect words, spelling, and punctuation that were not noted in review of the chart prior to signing ED Disposition - Plan for ED Patient: Disposition: Home or Assisted Living Instructions: ED Chest Pain Angina Stable Prescriptions: Ondansetron [Zofran Odt] 4 mg PO Q8H PRN PRN #10 tab PRN Reason: Nausea Prescription Printed Referrals: Freddie Huang MD [STAFF PHYSICIAN] - As soon as possible Additional Instructions: Begin taking your Ranexa as prescribed. Return to the emergency department for any concerns.
[2019-11-11 16:12] LABS: Anion Gap 4 (5-15); BUN 35 mg/dL (7-18); BUN/Creat Ratio 7.3 RATIO (10-20); Chloride 98 mmol/L (98-107); Creatinine, Serum 4.77 mg/dL (0.55-1.02); EST Glomerular Filtration Rate 10 mL/min (>60); Est Glom Filt Rate - Afr Amer 12 mL/min (>60); Estimated Creatinine Clearance 9.01 ml/min; Glucose 258 mg/dL (74-106); Magnesium 2.2 mg/dL (1.6-2.6); Potassium 4.8 mmol/L (3.5-5.1); Sodium Level 136 mmol/L (136-145)
[2019-11-11 17:00] VITALS: BP 93/48; PULSE 74; RESP 18; O2SAT 97
[2019-11-11 17:05] LABS: Lipase 64 U/L (73-393)
[2019-11-11 17:10] LABS: AST(SGOT) 54 U/L (15-37); Alanine Aminotransfer ALT/SGPT 63 U/L (13-56); Albumin, Serum 3.2 g/dL (3.2-5.0); Alkaline Phosphatase 113 U/L (45-117); Bilirubin, Direct 0.14 mg/dL (0.00-0.30); Globulin 4.2 g/dL (2.2-4.2); Protein, Total 7.4 g/dL (6.4-8.2)
[2019-11-11 18:25] VITALS: BP 98/60; PULSE 73; RESP 22; O2SAT 97
== END 2019-11-11 18:52 | disposition home or self-care (01) ==
PROVIDERS: Emergency Provider Emergency Medicine; PCP Family Medicine Geriatric Medicine
DX: I20.8 Other forms of angina pectoris (principal); I12.0 Hypertensive chronic kidney disease with stage 5 chronic kidney disease or end stage renal disease; N18.6 End stage renal disease; D64.9 Anemia, unspecified; E78.00 Pure hypercholesterolemia, unspecified; E11.22 Type 2 diabetes mellitus with diabetic chronic kidney disease; Z79.4 Long term (current) use of insulin; Z99.2 Dependence on renal dialysis; Z79.82 Long term (current) use of aspirin
CPT/HCPCS: 71045; 80048; 80076; 83690; 83735; 84484; 85025; 93005; 99285; A4216

== ENCOUNTER → 2019-11-13 13:48 | Outpatient (CLI) | payer MEDICARE, MEDICAID, SELFPAY ==
[2019-06-04 11:27] VITALS: BMI 37.3
[2019-11-12 08:48] VITALS: BMI 40.6
--- NOTE | 2019-11-13 13:57 | RAD_ITS ---
STUDY: X-RAY - CERVICAL SPINE REASON FOR EXAM: Female, 59 years old. PAIN ON LEFT SIDE AT BASE OF SKULL. SURGERY IN 2008 -- PATIENT UNABLE TO LIFT CHIN ANY HIGHER DUE TO SURGERY TO GET BETTER VIEW OF THE TIP TECHNIQUE: 5 view(s) of the cervical spine were obtained. COMPARISON: 2010 FINDINGS: The patient is status post C3 through C7 posterior laminectomy with screw and cierra fixation device. Normal craniovertebral junction. Normal anterior atlantoaxial articulation. Normal odontoid process. There is straightening of the normal cervical lordosis. Normal vertebral bodies and posterior osseous elements. There is multi-level degenerative disc space narrowing with endplate spondylosis. Normal visualized intervertebral neuroforamina. Normal visualized soft tissue structures. RAD/Cerv Spine 2 or 3 Views IMPRESSION: Multilevel degenerative and postsurgical changes, no acute findings or significant interval change Electronically Signed: Lawson Canela MD at 14:21 EDT , Service support ,
== END ==
PROVIDERS: PCP Family Medicine Geriatric Medicine; Referring Provider Family Medicine Geriatric Medicine; Visit Provider Family Medicine Geriatric Medicine
DX: M54.2 Cervicalgia (principal)
CPT/HCPCS: 72040

== ENCOUNTER 2019-11-27 10:12 | Outpatient (RCR) | payer MEDICARE, MEDICAID, SELFPAY ==
[2019-06-04 11:27] VITALS: BMI 37.3
[2019-11-17 09:06] VITALS: BMI 39.6
== END 2019-12-22 23:59 ==
LOC: DC 10:12
PROVIDERS: Family Provider Family Medicine Geriatric Medicine; PCP Family Medicine Geriatric Medicine; Referring Provider Internal Medicine Cardiovascular Disease; Visit Provider Internal Medicine Cardiovascular Disease
DX: Z71.3 Dietary counseling and surveillance (principal); E11.22 Type 2 diabetes mellitus with diabetic chronic kidney disease; I12.0 Hypertensive chronic kidney disease with stage 5 chronic kidney disease or end stage renal disease; N18.6 End stage renal disease; N25.81 Secondary hyperparathyroidism of renal origin; E87.6 Hypokalemia; E66.01 Morbid (severe) obesity due to excess calories; Z99.2 Dependence on renal dialysis
CPT/HCPCS: G0109

== ENCOUNTER 2019-12-25 15:42 | Outpatient (RCR) | payer MEDICARE, MEDICAID, SELFPAY ==
[2019-06-04 11:27] VITALS: BMI 37.3
[2019-11-17 09:06] VITALS: BMI 39.6
== END 2020-01-21 23:59 ==
LOC: DC 15:42
PROVIDERS: Family Provider Family Medicine Geriatric Medicine; PCP Family Medicine Geriatric Medicine; Referring Provider Internal Medicine Cardiovascular Disease; Visit Provider Internal Medicine Cardiovascular Disease
DX: Z71.3 Dietary counseling and surveillance (principal); E11.22 Type 2 diabetes mellitus with diabetic chronic kidney disease; I12.0 Hypertensive chronic kidney disease with stage 5 chronic kidney disease or end stage renal disease; N18.6 End stage renal disease; N25.81 Secondary hyperparathyroidism of renal origin; E87.6 Hypokalemia; E66.01 Morbid (severe) obesity due to excess calories; Z99.2 Dependence on renal dialysis

== ENCOUNTER 2020-02-13 13:00 | Outpatient (RCR) | payer MEDICARE, MEDICAID, SELFPAY ==
[2019-06-04 11:27] VITALS: BMI 37.3
[2019-11-13 14:52] VITALS: BMI 40.6
[2019-11-17 09:06] VITALS: BMI 39.6
--- NOTE | 2019-11-28 15:58 | HP.PTEVAL_ITS ---
Patient's Visit Information ADEN COOK is a 59 year old F referred to Physical Therapy by Dr. Bianca Martinez, SARA with a diagnosis of FUSION OF THE CERVICAL SPIINE WITH HARDWARE. Date of Evaluation: 11/28/19 Physical Therapist: Eduarda Mosley PT, Cert MDT - Visit Plan Frequency: 2-3x /Week Duration: 4-6 Weeks Plan: STM, POSTURE CORRECTION/STRENGTHENING, INSTRUCTION IN APPROPRIATE BODY MECHANICS AND ACTIVITY MODIFICATIONS. LOULOU UE ROM, STRETCHING AND STRENGTHEN ING. HEP INSTRUCTION. - Subjective Work/Leisure: RETIRED. Disability: YES. Present symptoms: LEFT NECK PAIN. HEADACHES. Present since: YEARS. Pain Scale: Worst - 9/10 Least - 0/10. Currently: 06/02. Commenced as a result of: NO APPARENT REASON. Symptoms at onset: NECK. Worse: CLEANING HOUSE, TRANSFERING LAUNDRY, REACHING, GETTING IN/OUT OF BED. Better: NECK BRACE, HEAT, HOT SHOWER, WHEN THE KIDS MASSAGE ME. Disturbed sleep: YES. Previous history/Previous treatment: NECK FUSION 2009 C3-C7. H/O CHIROPRACTIC AND CURRENTLY SEEING DR. MARTINEZ. NO NECK INJECTIONS. Dizziness: NO. Tinnitis: NO. Nausea: NO. Shortness of Breath: YES. Difficulty Swollowing: NO. Gait: WALKS WITH A CANE OUT OF HOME AND FURNITURE WALKS AT HOME. STATES THAT SHE TRIPS AT TIMES BUT DOESN'T GO ALL THE WAY DOWN. Accidents: NO. Unexplained weight loss: NO. Imaging: NECK X-RAY 11/13/19 - NO ACUTE FINDINGS - SEE [facility] EMR. PMH/Recent major surgery: EXTENSIVE MEDICAL HISTORY FOR HEART - SEE [facility] EMR. ALSO ON DIALYSIS. IDDM. NO CANCER. NO STROKE. - Objective Sitting Posture/Standing Posture: POOR. FH. RS'S. Active Correction of posture: WORSE. Other Observations: INDEP SLOW GAIT INTO PT WITH CANE. NO LOB. Motor deficit: RIGHT HAND DOMINANT WITH A RIGHT GARAGE MANAGER STRENGTH OF 20 LBS AND LEFT 16 LBS. LOULOU UE STRENGTH GROSSLY 3+ TO 4-/5 WITH MMT'ING WITH ELBOWS AT SIDES. Sensory deficit: LOULOU UE LIGHT TOUCH SENSATION INTACT AND SYMMETRICAL. ROM deficit: DECREASED LOULOU UE REACHING ROM BY APPROX 40%. LOULOU ELBOW, FOREARM, WRIST AND HAND AROM WFL. Reflexes: UNABLE TO ELICIT LOULOU UE DTR'S. Dural Signs: NEGATIVE LOULOU UE'S. Cervical Mvmt Loss: Flex: MOD. Pro: MOD. Ext: LENNY. Ret: LENNY. RSB: LENNY. LSB: LENNY. R Rot: MOD TO LENNY. L Rot: MOD TO LENNY. Postural strength: POOR. Palpation: LONG POSTERIOR NECK INCISION. VERY TIGHT LOULOU UPPER TRAPS AND POSTERIOR CERVICAL MUSCULATURE. NOT TENDER WITH LIGHT PALPATION TODAY BUT PATIENT REPORTS NOT BEING ABLE TO HAVE IT TOUCHED BEHIND HER EAR ON THE LEFT WHEN IT FLARES UP. TREATMENT: NEUROMUSCULAR REEDUCATION - RETRAINING OF MVMT AND POSTURE FOR SITTING, LYING AND STANDING ACTIVITIES. - Goals Goal 1:: DECREASE C/O LEFT NECK PAIN Goal Time Frame: 4-6 Weeks Goal 2:: IMPROVE PERSONAL CARE, LIFTING, READING, SLEEP, RECREATIONAL AND HOMEMAKING FUNCTION. Goal Time Frame: 4-6 Weeks Goal 3:: INSTRUCT IN PROPHYLAXIS Goal Time Frame: 4-6 Weeks - Anticipated Interventions Patient/Client Instruction: Educate patient on: Condition, Plan of Care, Risk Factors, Benefits of Fitness Program For the Purpose of:: To improve self management Therapeutic Exercise to Include: Strength training, Body mechanics, Postural training, Neuromotor development, Scapular Strength/Stabilization For the Purpose of:: To decrease pain, To increase ROM, To improve muscle performance and motor function, To increase tolerance to activity/condition/position, To improve ability of physical actions for home/community/work/leisure Manual Therapy Techniques to Include: Soft tissue mobilization For the Purpose of:: To decrease pain, To increase ROM, To improve nutrient delivery to tissue Thank you for the opportunity to evaluate your patient. For Medicare and Medicare HMO plans, please review the plan of care and approve it. It will need to be FAXED BACK to us at [phone] for Medicare purposes. For Medicare only, by signing this I certify the plan of care. Please let me know if there are questions or concerns regarding this plan of care. Physician Signature: Da te:
--- NOTE | 2020-01-05 14:36 | HP.PTREVAL ---
Dr. Bianca Martinez, SARA, It has been my pleasure to treat ADEN COOK over the last 7 visits for FUSION OF THE CERVICAL SPIINE WITH HARDWARE. Please see the progress note below for an update on the physical therapy plan of care! Subjective: PATIENT IS APOLOGETIC ABOUT ARRVING VERY LATE FOR LIANNE'T. STATES SHE IS GETTING BETTER AND WANTS TO CONTINUE PT. PATIENT REPORTS SHE DOESN'T HAVE MUCH PAIN THROUGHOUT THE DAY NOW SHE WAS BEFORE. PATIENT REPORTS DRESSING IS LESS PAINFUL NOW. Objective/Function: PATIENT WAS SEEN TODAY FOR RE-ASSESSMENT OF PROGRESS TOWARD THE SET PT GOALS AND THE NEED FOR FURTHER PHYSICAL THERAPY VS READINESS FOR DISCHARGE. UPON EXAM TODAY THERE ARE NO SIGNIFICANT CHANGES COMPARED TO INITIAL EVAL BUT PATIENT IS REPORTING INCREASED PAINFREE FUNCTION. Plan Plan: STM, POSTURE CORRECTION/STRENGTHENING, INSTRUCTION IN APPROPRIATE BODY MECHANICS AND ACTIVITY MODIFICATIONS. LOULOU UE ROM, STRETCHING AND STRENGTHENING. HEP INSTRUCTION. Goals Goal 1:: DECREASE C/O LEFT NECK PAIN Goal Time Frame: 4-6 Weeks Goal Progress: Progressing Goal 2:: IMPROVE PERSONAL CARE, LIFTING, READING, SLEEP, RECREATIONAL AND HOMEMAKING FUNCTION. Goal Time Frame: 4-6 Weeks Goal Progress: Progressing Goal 3:: INSTRUCT IN PROPHYLAXIS Goal Time Frame: 4-6 Weeks Goal Progress: Progressing Anticipated Interventions Patient/Client Instruction: Educate patient on: Condition, Plan of Care, Risk Factors, Benefits of Fitness Program For the Purpose of:: To improve self management Therapeutic Exercise to Include: Strength training, Body mechanics, Postural training, Neuromotor development, Scapular Strength/Stabilization For the Purpose of:: To decrease pain, To increase ROM, To improve muscle performance and motor function, To increase tolerance to activity/condition/position, To improve ability of physical actions for home/community/work/leisure Manual Therapy Techniques to Include: Soft tissue mobilization For the Purpose of:: To decrease pain, To increase ROM, To improve nutrient delivery to tissue Please do not hesitate to contact me at [phone] by phone or if you have questions or concerns regarding this new plan of care! Sincerely, Eduarda Mosley, PT, Cert MDT
--- NOTE | 2020-03-23 13:21 | HP.PT.NRP ---
ADEN COOK was seen in my office for initial evaluation on 11/28/19. The following Plan of Care was established for this patient: Initial Frequency: 2-3x /Week Initial Duration: 4-6 Weeks Patient/Client Instruction: Educate patient on: Condition, Plan of Care, Risk Factors, Benefits of Fitness Program For the Purpose of:: To improve self management Therapeutic Exercise to Include: Strength training, Body mechanics, Postural training, Neuromotor development, Scapular Strength/Stabilization For the Purpose of:: To decrease pain, To increase ROM, To improve muscle performance and motor function, To increase tolerance to activity/condition/position, To improve ability of physical actions for home/community/work/leisure Manual Therapy Techniques to Include: Soft tissue mobilization For the Purpose of:: To decrease pain, To increase ROM, To improve nutrient delivery to tissue This patient was last seen in our office 02/13/20. Pertinent comments regarding their Physical therapy will appear below: This patient has not returned to Physical Therapy and is appropriate to return to MD for further follow-up as needed. At this point I will be discontinuing this patient from physical therapy. I would be happy to see this patient again in the future if found appropriate by the physician. Thank you! Eduarda Mosley, PT, Cert MDT
== END 2020-02-13 19:00 | disposition home or self-care (01) ==
LOC: PT 13:00
PROVIDERS: PCP Family Medicine Geriatric Medicine; Referring Provider Chiropractor; Visit Provider Chiropractor
DX: M43.22 Fusion of spine, cervical region (principal)
CPT/HCPCS: 97110; 97112; 97140; 97162; 97164

== ENCOUNTER → 2020-02-25 14:01 | Outpatient (CLI) | payer MEDICARE, MEDICAID, SELFPAY ==
[2019-06-04 11:27] VITALS: BMI 37.3
[2020-01-23 13:16] VITALS: BMI 39.2
[2020-02-25 16:22] LABS: Thyroid Stim Hormone (TSH) 0.59 uIU/mL (0.358-3.74)
[2020-02-26 13:49] LABS: Vitamin D,25 Hydroxy 36.1 ng/mL
== END ==
PROVIDERS: PCP Family Medicine Geriatric Medicine; Visit Provider Family Medicine Geriatric Medicine
DX: E55.9 Vitamin D deficiency, unspecified (principal); I10 Essential (primary) hypertension
CPT/HCPCS: 36415; 82306; 84443

== ENCOUNTER → 2020-03-05 14:02 | Outpatient (CLI) | payer MEDICARE, MEDICAID, SELFPAY ==
[2019-06-04 11:27] VITALS: BMI 37.3
[2020-01-23 13:16] VITALS: BMI 39.2
--- NOTE | 2020-03-05 14:05 | ECHOD_ITS ---
Reason For Study: CHF Procedure This was a 2D Doppler, Color Flow transthoracic echocardiogram. Exam performed in department. Left Ventricle Normal LV size. Left ventricular systolic function is normal. The estimated ejection fraction is 50 %. Stage 3 diastolic dysfunction. No regional wall motion abnormalities noted. Right Ventricle Normal RV size. Normal systolic function. Atria Normal left atrium. Normal right atrium. Mitral Valve Bileaflet diffuse mitral valve thickening. Mild (1+) mitral valve insufficiency. Tricuspid Valve Normal tricuspid valve. Moderate (2+) tricuspid valve insufficiency. Pulmonary artery systolic pressure is 60 mmHg. Moderate pulmonary hypertension. Pulmonic Valve The pulmonic valve is not well visualized. Great Vessels Normal aortic root. The pulmonary artery is normal size. Inferior vena cava collapse with respiration. Pericardium/Pleural No pericardial effusion. MMode/2D Measurements & Calculations LVIDd: 5.4 cm IVSd: 1.0 cm Ao root diam: 3.1 cm LVIDs: 4.2 cm LVPWd: 1.2 cm LA dimension: 4.1 cm RVDd: 3.2 cm FS: 21.9 % LAV(MOD-bp): 46.2 ml LA A4 area: 17.7 cm2 RA A4 area: 13.9 cm2 LAV(MOD-bp) Indexed: 24.1 ml/m2 LAV(MOD-sp2): 37.8 ml LAV(MOD-sp4): 44.5 ml Time Measurements MV dec time: 0.15 sec Doppler Measurements & Calculations MV E max fransisco: 110.6 cm/sec Lat Peak E' Fransisco: 3.8 cm/sec Med Peak E' Fransisco: 3.7 cm/sec MV A max fransisco: 44.5 cm/sec E/E' lat: 28.9 E/E' med: 29.9 MV E/A: 2.5 MV V2 max: 117.0 cm/sec MV P1/2t max fransisco: 117.3 cm/sec Ao V2 max: 102.5 cm/sec MV max P.5 mmHg MV P1/2t: 52.8 msec Ao max P.2 mmHg MV V2 mean: 47.8 cm/sec MV mean P.3 mmHg MV dec slope: 650.9 cm/sec2 MV V2 VTI: 26.3 cm MVA(P1/2t): 4.2 cm2 LV V1 max: 74.4 cm/sec MR max fransisco: 357.0 cm/sec PA V2 max: 63.4 cm/sec LV V1 max P.2 mmHg MR max P.0 mmHg TR max fransisco: 377.3 cm/sec TR max P.9 mmHg Interpretation Summary Normal LV size. Left ventricular systolic function is normal. The estimated ejection fraction is 50 %. Stage 3 diastolic dysfunction. Pulmonary artery systolic pressure is 60 mmHg. Moderate pulmonary hypertension. Ordering Physician: Parish Aly Referring Physician: Brayden King Chi Performed By: Stephan Tafoya RCS
== END ==
PROVIDERS: PCP Family Medicine Geriatric Medicine; Referring Provider Nurse Practitioner Family; Visit Provider Nurse Practitioner Family
DX: R07.9 Chest pain, unspecified (principal); I50.32 Chronic diastolic (congestive) heart failure; I34.0 Nonrheumatic mitral (valve) insufficiency
CPT/HCPCS: 93306

== ENCOUNTER 2020-03-11 11:20 | Emergency (ER) | payer MEDICARE, MEDICAID, SELFPAY ==
[2019-06-04 11:27] VITALS: BMI 37.3
[2020-01-23 13:16] VITALS: BMI 39.2
[2020-03-11 11:21] VITALS: BP 94/42; PULSE 66; RESP 17; TEMP 36.3; O2SAT 100; BMI 41.3
--- NOTE | 2020-03-11 11:44 | RAD_ITS ---
STUDY: X-RAY CHEST REASON FOR EXAM: Female, 59 years old. Swelling. Diarrhea. Cough. Nasal and chest congestion chest wall tightness. Symptoms began Sunday. TECHNIQUE: Single AP portable view of the chest. COMPARISON: 11/11/2019. FINDINGS: The lungs are clear and expanded. There is no demonstrated pleural abnormality. Sternal cerclage wires are present from a prior sternotomy. Heart is mildly enlarged but unchanged. Normal mediastinum and branden. Normal visualized pulmonary arteries. There is atherosclerotic calcification of the aortic arch with tortuosity. Normal visualized thoracic spine. Normal visualized ribs, clavicles, and shoulders. There is no demonstrated abnormality of the visualized soft tissue structures of the upper abdomen. RAD/Chest 1 View (Portable) IMPRESSION: No acute cardiopulmonary disease or interval change. Electronically Signed: Deion Sheridan DO at 12:28 EST Tel [phone], Service support ,
[2020-03-11 11:58] LABS: Absolute Lymphocyte Count 1.02 X10^3/uL (0.83-4.51); Absolute Neutrophil Count 1.5 X10^3/uL (2.0-7.7); Basophil# 0.02 X10^3/uL; Basophil% 0.7 % (0-1); Eosinophil# 0.07 X10^3/uL; Eosinophils% 2.3 % (0-5); Hematocrit 37.8 % (37-47); Hemoglobin 11.8 g/dL (12.0-15.0); Lymphocyte # 1.02 X10^3/ul (4.0); Mean Corp Hgb Conc 31.2 g/dL (32-36); Mean Corpuscular Hgb 30.9 pg (27.0-32.0); Mean Platelet Vol. 10.2 fl (6.2-12.0); Monocyte# 0.39 X10^3/uL; NRBC Flagged by Analyzer 0 % (0-5); Neutrophil # 1.49 X10^3/uL (2.7-7.7); Neutrophil % 49.7 % (47-70); Platelet Count 223 K/mm3 (150-450); RBC Distribution Width CV 15.3 % (11.6-14.6); RBC Distribution Width SD 55.5 fl (35.1-43.9); Red Blood Count 3.82 M/mm3 (4.2-5.4)
--- NOTE | 2020-03-11 12:17 | ED.DCSUM_ITS ---
- ER Visit Summary Date of Service: 03/11/20 Chief Complaint: Cough and congestion History of Present Illness: The patient is a 59 F who presents with cough and congestion that has been getting worse over the past 5 days. Patient states she has some tightness in her chest. Patient states nothing makes it better or worse. Patient states she has a history of pneumonia and this feels similar to the onset of her pneumonia in the past. Patient admits to sweats but denies any fevers or chills. Patient admits to a cough with some sputum production. Patient also admits to some rhinorrhea and diarrhea. Physical Examination: Vital signs are stable. Patient is afebrile. Patient is in no acute distress. Oral mucosa is pink and moist. Neck is supple. Trachea is midline. There is no JVD. Heart was regular rate and rhythm. Lungs were diminished bilaterally. There is adequate respiratory effort noted. Abdomen is soft. Bowel sounds are normal. There is no tenderness. Cranial nerves II through XII are intact. There are no focal motor or sensory deficits noted. Extremities are intact. There is no calf tenderness or edema. Test Results: Portable chest x-ray was obtained. There is borderline cardiomegaly. There is no acute infiltrate or pleural effusion. Bony thorax is normal. This was interpreted by myself. Radiologist also interpreted the x-ray and agrees. CBC shows a white blood cell count of 3.0. Hemoglobin was 11.8. Comprehensive metabolic profile showed a slightly elevated glucose of 184. BUN was 23 and creatinine was 4.24. These were consistent with prior results. Emergency Department Course and Treatment: Patient was advised of her findings. Patient feels better on reevaluation. A COVID-19 test was obtained and is pending since it is a send out. Patient was instructed to follow-up with her primary care physician in 3 to 5 days for results. Patient was instructed return if worse in any way. Patient understood and was agreeable with the plan. All questions were answered. Disposition: Discharge home Impression: 1. Viral upper respiratory infection 2. Suspect COVID-19 This note was generated with [employer] software. It may contain incorrect words, spelling, and punctuation that were not noted in review of the chart prior to signing ED Disposition - Plan for ED Patient: Disposition: Home or Assisted Living Diagnosis: Viral upper respiratory infection, Suspected COVID-19 virus infection Instructions: ED URI Viral Referrals: Brayden King Chi, MD [Primary Care Provider] - 3-5 Days
[2020-03-11 12:19] LABS: ALB/GLOB Ratio 0.8 RATIO (0.9-2.4); AST(SGOT) 29 U/L (15-37); Alanine Aminotransfer ALT/SGPT 29 U/L (13-56); Albumin, Serum 3.6 g/dL (3.2-5.0); Alkaline Phosphatase 111 U/L (45-117); Anion Gap 6 (5-15); BUN 23 mg/dL (7-18); BUN/Creat Ratio 5.4 RATIO (10-20); Chloride 98 mmol/L (98-107); Creatinine, Serum 4.24 mg/dL (0.55-1.02); EST Glomerular Filtration Rate 11 mL/min (>60); Est Glom Filt Rate - Afr Amer 14 mL/min (>60); Estimated Creatinine Clearance 10.13 ml/min; Globulin 4.3 g/dL (2.2-4.2); Glucose 184 mg/dL (74-106); Potassium 4.9 mmol/L (3.5-5.1); Protein, Total 7.9 g/dL (6.4-8.2); Sodium Level 137 mmol/L (136-145)
[2020-03-11 13:08] VITALS: BP 116/54; PULSE 62; RESP 165; O2SAT 100
[2020-03-11 14:17] VITALS: BP 115/63; PULSE 74; RESP 16; O2SAT 96
== END 2020-03-11 14:19 | disposition home or self-care (01) ==
PROVIDERS: Emergency Provider Emergency Medicine; PCP Family Medicine Geriatric Medicine
DX: J06.9 Acute upper respiratory infection, unspecified (principal); Z20.828 Contact with and (suspected) exposure to other viral communicable diseases
CPT/HCPCS: 71045; 80053; 85025; 87635; 99284; A4216; U0003

== ENCOUNTER → 2020-04-09 15:52 | Outpatient (CLI) | payer MEDICARE, MEDICAID, SELFPAY ==
[2019-06-04 11:27] VITALS: BMI 37.3
[2020-01-23 13:16] VITALS: BMI 39.2
[2020-03-11 11:21] VITALS: BMI 41.3
--- NOTE | 2020-04-09 15:54 | BI_ITS ---
MAMMOGRAPHY - BILATERAL SCREENING REASON FOR EXAM: Female, 59 years old. Routine annual screening examination. PERTINENT HISTORY: Aunt with breast cancer. TECHNIQUE: Digital bilateral breast freddy (3D mammographic acquisition) in the CC and MLO projections. 2-D mediolateral oblique (MLO) and craniocaudad (CC) views of both breasts were obtained. CAD: Full Field Digital Mammography with Computer Added Detection was performed. COMPARISON: Comparison is made with prior study dated 04/29/2014 and 12/09/2010. FINDINGS: Breast Composition: There are scattered areas of fibroglandular density. There are no dominant masses or suspicious calcifications. Stable benign-appearing bilateral axillary lymph nodes. No other significant abnormalities are identified. There has been no significant change since the prior study. BI/SCREEN MAMM (CAD) W/FREDDY BILAT IMPRESSION: Stable bilateral screening mammogram. Yearly follow-up mammogram recommended. (A) ASSESSMENT CATEGORY: BIRADS Category 2: Benign. A letter regarding these results will be sent to the patient by the facility within 30 days. Approximately 10% of breast cancers are not detected by mammography. A normal mammogram should not delay biopsy of a clinically suspicious abnormality. [id number] Electronically Signed: Saman Acevedo, at 8:34 EST , Service support ,
== END ==
PROVIDERS: PCP Family Medicine Geriatric Medicine; Referring Provider Family Medicine Geriatric Medicine; Visit Provider Family Medicine Geriatric Medicine
DX: Z12.31 Encounter for screening mammogram for malignant neoplasm of breast (principal)
CPT/HCPCS: 77063; 77067

== ENCOUNTER → 2020-05-26 14:07 | Outpatient (CLI) | payer MEDICARE, MEDICAID, SELFPAY ==
[2019-06-04 11:27] VITALS: BMI 37.3
[2020-05-26 16:06] LABS: Absolute Lymphocyte Count 1.12 X10^3/uL (0.83-4.51); Absolute Neutrophil Count 2.2 X10^3/uL (2.0-7.7); Basophil# 0.03 X10^3/uL; Basophil% 0.7 % (0-1); Eosinophil# 0.21 X10^3/uL; Eosinophils% 5.2 % (0-5); Hematocrit 37.3 % (37-47); Hemoglobin 11.4 g/dL (12.0-15.0); Lymphocyte # 1.12 X10^3/ul (4.0); Lymphocyte % 27.9 % (19-41); Mean Corp Hgb Conc 30.6 g/dL (32-36); Mean Corpuscular Hgb 31.1 pg (27.0-32.0); Mean Corpuscular Volume 101.6 fL (81-99); Mean Platelet Vol. 10.2 fl (6.2-12.0); Monocyte# 0.45 X10^3/uL; Monocyte% 11.2 % (0-10); NRBC Flagged by Analyzer 0 % (0-5); Neutrophil % 54.8 % (47-70); Platelet Count 255 K/mm3 (150-450); RBC Distribution Width CV 15.8 % (11.6-14.6); RBC Distribution Width SD 59.1 fl (35.1-43.9); Red Blood Count 3.67 M/mm3 (4.2-5.4)
[2020-05-26 16:32] LABS: Vitamin D,25 Hydroxy 31.8 ng/mL
[2020-05-26 17:03] LABS: ALB/GLOB Ratio 0.9 RATIO (0.9-2.4); AST(SGOT) 15 U/L (15-37); Alanine Aminotransfer ALT/SGPT 31 U/L (13-56); Albumin, Serum 3.5 g/dL (3.2-5.0); Alkaline Phosphatase 120 U/L (45-117); Anion Gap 9 (5-15); BUN 41 mg/dL (7-18); BUN/Creat Ratio 6.1 RATIO (10-20); Calcium,Total 8.8 mg/dL (8.5-10.1); Chloride 97 mmol/L (98-107); Creatinine, Serum 6.67 mg/dL (0.55-1.02); EST Glomerular Filtration Rate 7 mL/min (>60); Est Glom Filt Rate - Afr Amer 8 mL/min (>60); Globulin 3.9 g/dL (2.2-4.2); Glucose 248 mg/dL (74-106); Potassium 5.1 mmol/L (3.5-5.1); Protein, Total 7.4 g/dL (6.4-8.2); Sodium Level 135 mmol/L (136-145); Thyroid Stim Hormone (TSH) 0.61 uIU/mL (0.358-3.74)
== END ==
PROVIDERS: PCP Family Medicine Geriatric Medicine; Visit Provider Family Medicine Geriatric Medicine
DX: E11.9 Type 2 diabetes mellitus without complications (principal); E55.9 Vitamin D deficiency, unspecified; I10 Essential (primary) hypertension
CPT/HCPCS: 36415; 80053; 82306; 84443; 85025

== ENCOUNTER → 2020-06-29 15:44 | Outpatient (CLI) | payer MEDICARE, MEDICAID, SELFPAY ==
[2019-06-04 11:27] VITALS: BMI 37.3
[2020-05-26 15:12] VITALS: BMI 41.2
--- NOTE | 2020-06-29 15:50 | RAD_ITS ---
STUDY: X-RAY - LEFT SHOULDER REASON FOR EXAM: Left shoulder pain for 2 weeks, limited range of motion. TECHNIQUE: 4 view(s) of the shoulder. COMPARISON: None. FINDINGS: Normal glenohumeral articulation. Normal acromioclavicular joint. Normal acromion. Normal humeral head and visualized proximal humerus. The soft tissue structures are unremarkable. Normal visualized pulmonary apex. RAD/Shoulder min 2 Views IMPRESSION: Normal x-ray examination of the left shoulder. Electronically Signed: Edward Raymond MD at 9:21 EST Tel , Service support ,
== END ==
PROVIDERS: PCP Family Medicine Geriatric Medicine; Referring Provider Family Medicine Geriatric Medicine; Visit Provider Family Medicine Geriatric Medicine
DX: M25.519 Pain in unspecified shoulder (principal)
CPT/HCPCS: 73030

== ENCOUNTER 2020-08-18 08:00 | Day surgery (SDC) | payer MEDICARE, MEDICAID, SELFPAY ==
[2019-06-04 11:27] VITALS: BMI 37.3
[2020-08-16 13:30] VITALS: BMI 41.0
[2020-08-17 11:53] VITALS: BMI 41.0
[2020-08-18 08:14] LABS: Hematocrit 31.6 % (37-47); Hemoglobin 9.9 g/dL (12.0-15.0); Mean Corp Hgb Conc 31.3 g/dL (32-36); Mean Corpuscular Hgb 33.9 pg (27.0-32.0); Mean Corpuscular Volume 108.2 fL (81-99); Mean Platelet Vol. 9.8 fl (6.2-12.0); POSITIVE MORPHOLOGY YES; Platelet Count 260 K/mm3 (150-450); RBC Distribution Width CV 17.2 % (11.6-14.6); RBC Distribution Width SD 67.7 fl (35.1-43.9); Red Blood Count 2.92 M/mm3 (4.2-5.4); White Blood Count 6.3 K/mm3 (4.4-11.0)
[2020-08-18 08:15] LABS: Scan Indicated on CBC? Y/N YES- FLAGS NOTED
[2020-08-18 08:25] LABS: Anion Gap 6 (5-15); BUN 39 mg/dL (7-18); BUN/Creat Ratio 6.7 RATIO (10-20); Calcium,Total 8.2 mg/dL (8.5-10.1); Chloride 99 mmol/L (98-107); Creatinine, Serum 5.79 mg/dL (0.55-1.02); EST Glomerular Filtration Rate 8 mL/min (>60); Est Glom Filt Rate - Afr Amer 10 mL/min (>60); Estimated Creatinine Clearance 7.42 ml/min; Glucose 84 mg/dL (74-106); Potassium 5.2 mmol/L (3.5-5.1); Sodium Level 137 mmol/L (136-145)
--- NOTE | 2020-08-18 09:06 | HP.PCM_ITS ---
History and Physical Date of Admission: 08/18/20 ntake Visit Reasons: FISTULA DECREASED ACCESS FLOWS Chief Complaint: decreased flows Batching Operator Required: No Is patient in pain?: No Allergies lisinopril Allergy (Verified 08/16/20 13:18) Unknownranitidine HCl [From Zantac] Allergy (Verified 08/16/20 13:18) Hivesazithromycin Adverse Reaction (Verified 08/16/20 13:18) Nausea/Vom/Diarrhea Medications Gabapentin [Neurontin] 300 mg PO QHS 06/07/17 [History Confirmed 08/16/20] Timolol 0.5% [Timoptic] 1 drp RIGHT EYE BID 11/15/18 [History Confirmed 08/16/20] albuterol sulfate 90 mcg/actuation aerosol inhaler 1 puff INHALATION Q6H PRN PRN #1 inhaler 04/14/19 [Rx Confirmed 08/16/20] vitamin B complex and vitamin C no.20-folic acid 1 mg capsule 1 cap PO DAILY 06/09/19 [History Confirmed 08/16/20] nitroglycerin 0.4 mg sublingual tablet 0.4 mg SUBLINGUAL Q5-15M PRN #25 tab 09/22/19 [Rx Confirmed 08/16/20] Ascorbic Acid [Vitamin C] 500 mg PO DAILY 10/27/19 [History Confirmed 05/26/20] Cholecalciferol (VIT D3) [Vitamin D3] 1,000 unit PO DAILY 10/27/19 [History Confirmed 08/16/20] Pantoprazole Sodium [Protonix] 40 mg PO BID 11/02/19 [History Confirmed 08/16/20] Insulin Glargine,Hum.rec.anlog [Basaglar Kwikpen U-100] 38 unit SQ DAILY #0 11/04/19 [Rx Confirmed 08/16/20] Polyethylene Glycol 3350 [Miralax] 17 gm PO DAILY? packet 11/04/19 [Rx Confirmed 08/16/20] Ranolazine [Ranexa] 500 mg PO BID 11/11/19 [History Confirmed 08/16/20] aspirin 81 mg chewable tablet 81 mg PO DAILY@0800 #90 tab 02/03/20 [Rx Confirmed 08/16/20] atorvastatin 80 mg tablet 80 mg PO QHS #90 tab 02/03/20 [Rx Confirmed 05/26/20] clopidogrel 75 mg tablet 75 mg PO DAILY #90 tab 02/03/20 [Rx Confirmed 08/16/20] carvedilol 12.5 mg tablet 25 mg PO BID? tab 05/26/20 [History Confirmed 08/16/20] famotidine 40 mg tablet 40 mg PO DAILY 05/26/20 [History Confirmed 08/16/20] icosapent ethyl 1 gram capsule 2 g PO BID 05/26/20 [History Confirmed 08/16/20] pyridoxine (vitamin B6) 100 mg tablet 100 mg PO DAILY 05/26/20 [History Confirmed 08/16/20] sucroferric oxyhydroxide 500 mg chewable tablet 500 mg PO TID 05/26/20 [History Confirmed 08/16/20] isosorbide mononitrate 60 mg tablet,extended release 24 hr 90 mg PO BID? tablet 08/16/20 [History] [facility] Medical History? 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 History of left heart catheterization (Chronic 05/26/19) History of carpal tunnel surgery (Acute) Aortocoronary bypass status (Inactive 06/25/14) History of cataract surgery (Inactive) History of hysterectomy (Inactive) Postsurgical percutaneous transluminal coronary angioplasty (PTCA) status (Inactive 02/18/19) angioplasty of artriovenous fistula (Inactive) Family History? Father Heart disease Hypertension Prostate cancerMother Hypertension Social History? (Updated 08/16/20 @ 15:05 by Yeni MOREL, PAKassandraC) Smoking Status:? Former smoker quit date: 04/23/13? second hand exposure:? No? alcohol intake:? never? substance use type:? does not use? caffeine:? No? what type of physical activity do you participate in:? none? HPI HPI HPI: ADEN COOK, is a 59 F who presents to the office today for? HPI HPI Surgical H&P: Yes HPI: ADEN COOK, is a 59 F who presents to the office today for decreased flows. Patient has a transposed left proximal forearm cephalic vein to radial artery AV fistula which was created in 06/[address] Franco. Patient's last intervention was on 01/31/2017 which demonstrated mid fistula high-grade venous stenosis. Double access with an 8 x 2 conquest angioplasty was performed with success. She states she did not know she had any problems with her fistula. She dialyzes on T, Th and Sat. She is maintained on Plavix and daily aspirin. 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 ROS General General: No weight change, appetite, fatigue, colon cancer, breast cancer or weakness HEENT HEENT: No difficulty swallowing, eye injury, eye surgery, swollen glands or hoarseness Endo Endocrine: No thyroid disease, diabetes mellitus, thyroid cancer, Hair loss, heat intolerance or cold intolerance Skin Skin: No rash or changing moles Breast Breast: No left breast lump, right breast lump, nipple discharge, breast pain, abnormal mammogram, abnormal US or breast enlargement Musc Musculoskeletal: No back problems, arthritis, rheumatoid arthritis, gout or joint pain Cardio Cardiovascular: Yes heart disease and high blood pressure; no murmur, pacemaker, atrial fibrillation, heart attack, heart stent, palpitations, shortness of breat with exertion or chest pain Psych Psychiatric: Yes depression; no anxiety or hearing voices Resp Respiratory: No shortness of breath, No sleep apnea, No cough, No COPD, Yes asthma, No emphysema, No wheezing Gastro Gastrointestinal: No abdominal pain, No nausea or vomiting, No diarrhea, Yes constipation, No blood in stool, Yes acid reflux, No hemorrhoids, No ulcers, No gallbladder problem, No black,tarry stools Marcell Hematologic: Yes blood thinners, No blood disorders, No bleeding, Yes anemia, No blood clots Neuro Neurologic: No system reviewed and no additional complaints, except as docu, No as per HPI, No abnormal walking, No abnormal hearing, No abnormal movements, No abnormal speech, No behavioral changes, No burning sensations, No confusion, No seizure-like activity, No unsteadiness, No dizziness, No localized weakness, No frequent falls, No headache(s), No lack of coordination, No loss of vision, No memory loss, Yes numbness, No other visual disturbances, No radiating pain, No restless legs, No sensory deficit, No fainting, Yes tingling, No tremor(s), No weakness, No other Exam Const General: cooperative, healthy appearing, comfortable, no acute distress [facility] Head: normal to inspection Eyes General: appearance normal, both eyes and all related structures Neck Neck: normal visual inspection Chest Breast Palpation: No nipple discharge Resp Effort & Inspection: normal respiratory effort Auscultation: clear to auscultation bilaterally Cardio Rate: regular rate Rhythm: regular rhythm Heart Sounds: no murmurs GI Inspection: normal to inspection Palpation: soft Skin General: no rashes or lesions noted Neuro General: no focal motor deficits, CN's II-XI intact bilaterally Extrem Other: Left forearm AV fistula- good pulse, diminished bruit and thrill.? Psych Appearance: grossly normal Affect: normal affect Assessment & Plan Problems 1. Problem with dialysis access, initial encounter? T82.443Y Plan Dr. Franco will plan to perform a left forearm fistulogram. Procedure details, risks and benefits have been explained. Patient and her family support system have had the opportunity to ask and have questions answered. Patient verbally understands and agrees with the plan. Patient to hold her Plavix 2 days prior to the procedure. She may continue her aspirin.? Plan Detail ?? Goals ?? Improve ROM Decrease headaches Decrease spasm ?? Barriers ?? Cspine fusion (C3-C7) with hardware Coding Level of Care Code Off vis,est,level 3 Diagnoses Problem with dialysis access, initial encounter? T82.123B ??Encounter type: initial encounter I have re-examined the patient. There are no clinical changes since date of exam.
--- NOTE | 2020-08-18 10:31 | OP.PCM_ITS ---
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 59-year-old female was taken to the special procedure lab placed on the table. 2 mg of Versed were given his intermittent sedation. The left extremity sterilely prepped and draped. Ultrasound was used to identify the cephalic vein in the distal left upper arm. Retrograde with flow 2% lidocaine was instilled as a local anesthetic under ultrasound guidance. Under ultrasound guidance micropunctureTechnique was utilized to gain access retrograde with flow. Micropuncture wire inserted 6 Trin[place] short sheath dilator was inserted. Then I used an 035 angled Glidewire and a 4 Trin[place] angled glide cath. Was able to place that into the proximal fistula and the get images officially using Isovue contrast however could not gain access to the artery. I then switched out to a 4 Trinidadian IM catheter and finally an 035 quick cross catheter. Using the quick cross catheter and the Glidewire was able to gain access to the radial artery distal to the anastomosis. I placed a 5 x 20 m Powerflex balloon and did some slight balloon angioplasty of that area only up to 3 milton of pressure. Then by withdrawing the balloon using Glidewire I could now gain access into the proximal artery. I placed the balloon in 2 different locations inflated it to a maximum of 4 milton of pressure at the venous arterial anastomosis. Final imaging study suggested that there was wide open patency. Through the sheath a fistulogram was completed for the upper arm. Sheath was removed the suture of 4-0 nylon was placed blood loss was minimal there is no apparent complication she tolerated it well. Images demonstrate a left proximal forearm radial to cephalic arteriovenous fistula with significant dilatation of the cephalic vein of the proximal forearm. There then is good cephalic and basilic vein outflow of the upper arm. There is good central venous outflow. There is no evidence of any venous stenosis throughout the fistula. There was felt to be some moderate inflow disease. Impression: Well matured left upper remedy brachiocephalic arteriovenous hemodialysis fistula. Suggestion of moderate inflow stenosis remedy with 5 x 20 mm Powerflex balloon. Excellent upper arm and central venous outflow. Rogelio Franco M.D., F.A.C.S. veterinary practitioner: None Type of Anesthesia: IV Sedation and Local Specimen's removed: None Drains: None Estimated Blood Loss (mL): Minimal Grafts/Implants Used: None Admit VTE Documentation VTE Present on Admission: No
== END 2020-08-18 11:45 | disposition home or self-care (01) ==
LOC: CLSP 08:02
PROVIDERS: PCP Family Medicine Geriatric Medicine; Referring Provider Surgery; Visit Provider Surgery
DX: T82.858A Stenosis of other vascular prosthetic devices, implants and grafts, initial encounter (principal); K21.9 Gastro-esophageal reflux disease without esophagitis; I13.2 Hypertensive heart and chronic kidney disease with heart failure and with stage 5 chronic kidney disease, or end stage renal disease; E11.22 Type 2 diabetes mellitus with diabetic chronic kidney disease; N18.6 End stage renal disease; I50.32 Chronic diastolic (congestive) heart failure; E78.5 Hyperlipidemia, unspecified; Z99.2 Dependence on renal dialysis; Z79.4 Long term (current) use of insulin; Z79.82 Long term (current) use of aspirin
CPT/HCPCS: 36415; 36902; 76937; 80048; 85027; 99152; 99153; Q9967; C1725; C1769; C1887